=== PATIENT | male | born 1935 | race Caucasian/White ===

== ENCOUNTER → 2016-08-28 | Outpatient (CLI) | payer MEDICARE, OTHER ==
[~2016-08-28] MED LIST: ASPI81CH43 PO; ATOR20TA PO; DIGO0.2570 PO; FENO5TAB PO; GLYB5TAB8 PO; LISI-646 PO
[2016-08-28 16:54] LABS: Albumin 3.9 g/dL (3.4-5.0); BUN/Creatinine Ratio 16.4; Bilirubin, Total 0.7 mg/dL (0.2-1.0); Calcium 9.6 mg/dL (8.5-10.1); Potassium 4.3 mmol/L (3.5-5.1)
== END | disposition home or self-care (01) ==
LOC: LAB 11:42
PROVIDERS: ATTEND Internal Medicine Cardiovascular Disease
DX: I10 Essential (primary) hypertension (principal); E11.9 Type 2 diabetes mellitus without complications; R97.20 Elevated prostate specific antigen [PSA]
CPT/HCPCS: 36415; 80053; 83036; 84153

== ENCOUNTER → 2016-09-18 | Outpatient (CLI) | payer MEDICARE, OTHER ==
[2016-09-18 11:20] VITALS: BP 99/51
[2016-09-18 11:45] VITALS: BP 94/49
[2016-09-18 16:40] LABS: Basophils # (auto) 0 uL; Basophils % (auto) 0.7 % (0.0-2.0); Eosinophils # (auto) 0.2 uL; Eosinophils % (auto) 4.4 % (0.0-7.0); Lymphocytes % (auto) 27.7 % (10.0-50.0); Mean Corpuscular Hemoglobin 32.7 pg (28.0-32.0); Mean Corpuscular Hgb Conc. 34.3 g/dL (32.0-36.0); Mean Corpuscular Volume 95.3 fL (80.0-100.0); Mean Platelet Volume 8.6 fL (7.4-10.4); Monocytes # (auto) 0.3 uL; Monocytes % (auto) 8.3 % (0.0-12.0); Neutrophils # (auto) 2.2 uL; Neutrophils % (auto) 58.9 % (37.0-80.0); Platelet Count (auto) 175 10^3/uL (140-450); White Blood Cell 3.8 10^3/uL (4.4-10.8)
[2016-09-18 16:49] LABS: Partial Thromboplastin Time 28.2 sec (22.64-33.71)
[2016-09-18 16:54] LABS: Calcium 8.3 mg/dL (8.5-10.1)
[2016-09-18 16:57] LABS: BUN/Creatinine Ratio 16.9
[2016-09-18 16:58] LABS: INR 1.4 (0.9-1.15); Prothrombin Time 14.4 sec (9.37-12.3)
== END | disposition home or self-care (01) ==
LOC: Rad HDHVI 11:04
PROVIDERS: ATTEND Internal Medicine Cardiovascular Disease
DX: I10 Essential (primary) hypertension (principal); D64.9 Anemia, unspecified; R79.1 Abnormal coagulation profile
CPT/HCPCS: 36415; 71020; 80048; 85025; 85610; 85730; 93005; G0463

== ENCOUNTER 2016-09-20 11:39 | Day surgery (SDC) | payer MEDICARE ==
[~2016-09-20] VITALS: Ht 165.1 cm; Wt 65.8 kg
[2016-09-20] MEDS ORDERED: ceFAZolin 1GM/50ML D5W 50 ML IV ONE (12:45)
[2016-09-20] MEDS ORDERED: VANCOMYCIN HCL 1000 MG VL IR ONE (12:45)
[2016-09-20] MEDS ORDERED: MIDAZOLAM HCL 1MG/1ML-2 ML VIAL ONE (13:40)
[2016-09-20] MEDS ORDERED: fentaNYL CITRATE 100 MCG/2 ML VL ONE (13:40)
[2016-09-20] MEDS ORDERED: VANCOMYCIN 1GM/250ML D5W 250 ML IV ONE ×2 (13:47→14:00)
[2016-09-20] MEDS ORDERED: ACETAMINOPHEN 325 MG TAB PO PRN (15:30)
[2016-09-20] MEDS ORDERED: HYDROcodone-ACET 5/325MG TAB PO PRN (15:30)
[2016-09-21] MEDS ORDERED: VANCOMYCIN 1GM/250ML D5W 250 ML IV SCH (10:00)
== END 2016-09-20 17:21 | disposition home or self-care (01) ==
LOC: CATH 11:39
PROVIDERS: ATTEND Internal Medicine Cardiovascular Disease
DX: I42.0 Dilated cardiomyopathy (principal); Z45.02 Encounter for adjustment and management of automatic implantable cardiac defibrillator; I25.119 Atherosclerotic heart disease of native coronary artery with unspecified angina pectoris
CPT/HCPCS: 33264; J0690; J2250; J3010; J3370; J7030

== ENCOUNTER → 2017-02-06 | Outpatient (CLI) | payer MEDICARE, OTHER | END | disposition home or self-care (01) | LOC: Rad HDHVI 10:40 | PROVIDERS: ATTEND Internal Medicine Cardiovascular Disease | DX: I25.5 Ischemic cardiomyopathy (principal); E78.00 Pure hypercholesterolemia, unspecified | CPT/HCPCS: 93306 ==

== ENCOUNTER → 2017-09-10 | Outpatient (CLI) | payer MEDICARE, OTHER | END | disposition home or self-care (01) | LOC: LAB 09:13 | PROVIDERS: ATTEND Internal Medicine Cardiovascular Disease | DX: E11.22 Type 2 diabetes mellitus with diabetic chronic kidney disease (principal); E11.65 Type 2 diabetes mellitus with hyperglycemia; N18.9 Chronic kidney disease, unspecified | CPT/HCPCS: 36415; 83036 ==

== ENCOUNTER → 2017-09-27 | Outpatient (CLI) | payer MEDICARE, OTHER ==
[~2017-09-27] MED LIST changes: +FUROSEMIDE 20 MG/2 ML VIAL IV ONE; +FUROSEMIDE 20 MG/2 ML VIAL ONE; +POTASSIUM CHL 10 Meq TABLET PO ONE
[2017-09-27 11:00] VITALS: BP 116/66
[2017-09-27 12:00] VITALS: BP 137/71
[2017-09-27 16:00] LABS: Basophils # (auto) 0 uL; Basophils % (auto) 0.8 % (0.0-2.0); Eosinophils # (auto) 0.1 uL; Eosinophils % (auto) 1.6 % (0.0-7.0); Hematocrit 36.3 % (41.0-53.0); Hemoglobin 12.1 g/dL (13.5-17.5); Lymphocytes % (auto) 21.4 % (10.0-50.0); Mean Corpuscular Hemoglobin 31.5 pg (28.0-32.0); Mean Corpuscular Hgb Conc. 33.4 g/dL (32.0-36.0); Mean Corpuscular Volume 94.5 fL (80.0-100.0); Monocytes # (auto) 0.5 uL; Monocytes % (auto) 9.7 % (0.0-12.0); Neutrophils # (auto) 3.2 uL; Neutrophils % (auto) 66.5 % (37.0-80.0); Nucleated Red Blood Cells % 0.5 %; Platelet Count (auto) 144 10^3/uL (140-450); Red Blood Cells 3.84 10^6/uL (4.5-5.90); Red Cell Distribution Width 16.1 % (11.8-14.3); White Blood Cell 4.7 10^3/uL (4.4-10.8)
[2017-09-27 16:03] LABS: Albumin 3.4 g/dL (3.4-5.0); BUN/Creatinine Ratio 19.3; Bilirubin, Total 0.4 mg/dL (0.2-1.0); Calcium 8.3 mg/dL (8.5-10.1); Magnesium 2.3 mg/dL (1.6-2.6); Potassium 4.4 mmol/L (3.5-5.1); Total Protein 7.9 g/dL (6.4-8.2)
== END | disposition home or self-care (01) ==
LOC: CHF HDHVI 10:10
PROVIDERS: ATTEND Internal Medicine Cardiovascular Disease
DX: I11.0 Hypertensive heart disease with heart failure (principal); I50.9 Heart failure, unspecified; E55.9 Vitamin D deficiency, unspecified; D64.9 Anemia, unspecified
CPT/HCPCS: 36415; 80053; 82306; 83735; 83880; 85025; 93701; 96374; G0463; J1940

== ENCOUNTER → 2017-10-15 | Outpatient (CLI) | payer MEDICARE, OTHER ==
[~2017-10-15] MED LIST changes: -FUROSEMIDE 20 MG/2 ML VIAL IV ONE; -FUROSEMIDE 20 MG/2 ML VIAL ONE; -POTASSIUM CHL 10 Meq TABLET PO ONE
== END | disposition home or self-care (01) ==
LOC: Rad HDHVI 12:33
PROVIDERS: ATTEND Internal Medicine Cardiovascular Disease
DX: I08.8 Other rheumatic multiple valve diseases (principal); I12.9 Hypertensive chronic kidney disease with stage 1 through stage 4 chronic kidney disease, or unspecified chronic kidney disease; E11.22 Type 2 diabetes mellitus with diabetic chronic kidney disease; N18.9 Chronic kidney disease, unspecified; E03.9 Hypothyroidism, unspecified; Z95.0 Presence of cardiac pacemaker
CPT/HCPCS: 93306

== ENCOUNTER → 2017-10-21 | Outpatient (CLI) | payer MEDICARE, OTHER ==
[~2017-10-21] MED LIST changes: +ADENOSINE 51 MG in GIVE UN-DILUTED 0 ML IV ONE; +ADENOSINE 90 MG/30 ML INJ IV ONE
== END | disposition home or self-care (01) ==
LOC: Rad HDHVI 13:17
PROVIDERS: ATTEND Internal Medicine Cardiovascular Disease
DX: I25.5 Ischemic cardiomyopathy (principal); I13.0 Hypertensive heart and chronic kidney disease with heart failure and stage 1 through stage 4 chronic kidney disease, or unspecified chronic kidney disease; I50.23 Acute on chronic systolic (congestive) heart failure; E11.22 Type 2 diabetes mellitus with diabetic chronic kidney disease; N18.9 Chronic kidney disease, unspecified
CPT/HCPCS: 78452; 93005; 96374; 96375; A9500; J0153

== ENCOUNTER → 2017-12-17 | Outpatient (CLI) | payer MEDICARE, BC ==
[~2017-12-17] MED LIST changes: -ADENOSINE 51 MG in GIVE UN-DILUTED 0 ML IV ONE; -ADENOSINE 90 MG/30 ML INJ IV ONE; +IVAB1.7T PO; +SACU1TAB PO
== END | disposition home or self-care (01) ==
LOC: Rad HDHVI 10:27
PROVIDERS: ATTEND Internal Medicine
DX: I70.0 Atherosclerosis of aorta (principal); E03.9 Hypothyroidism, unspecified; I13.0 Hypertensive heart and chronic kidney disease with heart failure and stage 1 through stage 4 chronic kidney disease, or unspecified chronic kidney disease; E11.22 Type 2 diabetes mellitus with diabetic chronic kidney disease; N18.9 Chronic kidney disease, unspecified; I50.9 Heart failure, unspecified
CPT/HCPCS: 71046

== ENCOUNTER → 2017-12-24 | Outpatient (CLI) | payer MEDICARE, BC ==
[~2017-12-24] VITALS: Ht 30.5 cm; Wt 0.5 kg
[~2017-12-24] MED LIST changes: +SODIUM CHLORIDE 0.9% 250 ML IV SCH
[2017-12-24 13:01] VITALS: BP 97/53
[2017-12-24 16:08] LABS: Calcium 7.8 mg/dL (8.5-10.1); Potassium 3.9 mmol/L (3.5-5.1)
[2017-12-24 16:32] LABS: Basophils # (auto) 0.1 uL; Eosinophils # (auto) 0.4 uL; Eosinophils % (auto) 10.7 % (0.0-7.0); Hematocrit 35.3 % (41.0-53.0); Hemoglobin 12.3 g/dL (13.5-17.5); Lymphocytes # (auto) 0.9 uL; Lymphocytes % (auto) 25.8 % (10.0-50.0); Mean Corpuscular Hemoglobin 33.4 pg (28.0-32.0); Mean Corpuscular Volume 95.4 fL (80.0-100.0); Monocytes # (auto) 0.3 uL; Monocytes % (auto) 7.5 % (0.0-12.0); Nucleated Red Blood Cells % 0.8 %; Platelet Count (auto) 127 10^3/uL (140-450); Red Cell Distribution Width 15.2 % (11.8-14.3); White Blood Cell 3.7 10^3/uL (4.4-10.8)
[2017-12-24 16:42] LABS: INR 1.34 (0.9-1.15); Prothrombin Time 14.1 sec (9.27-12.13)
== END | disposition home or self-care (01) ==
LOC: Rad HDHVI 11:00
PROVIDERS: ATTEND Internal Medicine Cardiovascular Disease
DX: Z01.812 Encounter for preprocedural laboratory examination (principal); I95.9 Hypotension, unspecified; R94.31 Abnormal electrocardiogram [ECG] [EKG]; I13.0 Hypertensive heart and chronic kidney disease with heart failure and stage 1 through stage 4 chronic kidney disease, or unspecified chronic kidney disease; E11.22 Type 2 diabetes mellitus with diabetic chronic kidney disease; N18.9 Chronic kidney disease, unspecified; I50.9 Heart failure, unspecified; D64.9 Anemia, unspecified; R79.1 Abnormal coagulation profile; E78.00 Pure hypercholesterolemia, unspecified; E03.9 Hypothyroidism, unspecified; Z95.0 Presence of cardiac pacemaker
CPT/HCPCS: 36415; 80048; 85025; 85610; 85730; 96361; G0463

== ENCOUNTER → 2018-01-20 | Outpatient (CLI) | payer MEDICARE, BC ==
[~2018-01-20] MED LIST changes: -DIGO0.2570 PO; -LISI-646 PO; -SODIUM CHLORIDE 0.9% 250 ML IV SCH
== END | disposition home or self-care (01) ==
LOC: Rad HDHVI 13:46
PROVIDERS: ATTEND Internal Medicine Cardiovascular Disease
DX: I08.8 Other rheumatic multiple valve diseases (principal); I11.0 Hypertensive heart disease with heart failure; I50.32 Chronic diastolic (congestive) heart failure; E78.5 Hyperlipidemia, unspecified
CPT/HCPCS: 93306

== ENCOUNTER → 2018-03-17 | Outpatient (CLI) | payer MEDICARE, BC ==
[~2018-03-17] MED LIST changes: +CLOP75TA28 PO; +EMPA1TAB3 PO
[2018-03-17 08:15] VITALS: BP 103/45
[2018-03-17 08:55] VITALS: BP 95/47
[2018-03-17 12:29] LABS: Basophils # (auto) 0 uL; Basophils % (auto) 1.4 % (0.0-2.0); Eosinophils # (auto) 0.2 uL; Eosinophils % (auto) 5.3 % (0.0-7.0); Hematocrit 34.4 % (41.0-53.0); Lymphocytes % (auto) 29.1 % (10.0-50.0); Mean Corpuscular Hemoglobin 33.1 pg (28.0-32.0); Mean Corpuscular Hgb Conc. 34.8 g/dL (32.0-36.0); Monocytes # (auto) 0.4 uL; Monocytes % (auto) 11.4 % (0.0-12.0); Neutrophils # (auto) 1.8 uL; Neutrophils % (auto) 52.8 % (37.0-80.0); Platelet Count (auto) 117 10^3/uL (140-450); Red Blood Cells 3.61 10^6/uL (4.5-5.90); Red Cell Distribution Width 14.1 % (11.8-14.3); White Blood Cell 3.4 10^3/uL (4.4-10.8)
[2018-03-17 12:44] LABS: INR 1.16 (0.9-1.15); Partial Thromboplastin Time 26.4 sec (23.78-33.04); Prothrombin Time 12.3 sec (9.27-12.13)
[2018-03-17 12:46] LABS: BUN/Creatinine Ratio 24.9; Calcium 8.9 mg/dL (8.5-10.1); Potassium 4.1 mmol/L (3.5-5.1)
== END | disposition home or self-care (01) ==
LOC: EDBD → Rad HDHVI 07:56
PROVIDERS: ATTEND Internal Medicine Cardiovascular Disease
DX: Z01.812 Encounter for preprocedural laboratory examination (principal); I70.0 Atherosclerosis of aorta; I10 Essential (primary) hypertension; D64.9 Anemia, unspecified; R79.1 Abnormal coagulation profile; R94.31 Abnormal electrocardiogram [ECG] [EKG]
CPT/HCPCS: 36415; 71046; 80048; 85025; 85610; 85730; 93005; G0463

== ENCOUNTER → 2018-03-20 | Day surgery (SDC) | payer MEDICARE, BC ==
[~2018-03-20] VITALS: Ht 165.1 cm; Wt 59.0 kg
[~2018-03-20] MED LIST changes: +FLUMAZENIL 0.1 MG/ML INJ 10ML MDV IV ONE; -GLYB5TAB8 PO; +MIDAZOLAM HCL 1MG/1ML-2 ML VIAL IV ONE; +NALOXONE HCL 0.4 MG/ML VIAL IV ONE; +fentaNYL CITRATE 100 MCG/2 ML VL IV ONE
== END | disposition home or self-care (01) ==
LOC: EDBD → CATH 07:25 → EDBD 07:25
PROVIDERS: ATTEND Internal Medicine Cardiovascular Disease
DX: I08.0 Rheumatic disorders of both mitral and aortic valves (principal); E78.5 Hyperlipidemia, unspecified; I25.2 Old myocardial infarction; Z82.49 Family history of ischemic heart disease and other diseases of the circulatory system; I73.9 Peripheral vascular disease, unspecified; E11.9 Type 2 diabetes mellitus without complications; I50.9 Heart failure, unspecified; I25.119 Atherosclerotic heart disease of native coronary artery with unspecified angina pectoris; Z95.1 Presence of aortocoronary bypass graft; Z87.891 Personal history of nicotine dependence; Z79.899 Other long term (current) drug therapy; Z79.82 Long term (current) use of aspirin
CPT/HCPCS: 93312; J2250; J7030; 99152; A4565

== ENCOUNTER → 2018-04-30 | Outpatient (CLI) | payer MEDICARE, BC ==
[~2018-04-30] MED LIST changes: -FLUMAZENIL 0.1 MG/ML INJ 10ML MDV IV ONE; -MIDAZOLAM HCL 1MG/1ML-2 ML VIAL IV ONE; -NALOXONE HCL 0.4 MG/ML VIAL IV ONE; -fentaNYL CITRATE 100 MCG/2 ML VL IV ONE
[2018-04-30 15:52] LABS: Basophils # (auto) 0.1 uL; Basophils % (auto) 1.3 % (0.0-2.0); Eosinophils # (auto) 0.3 uL; Hematocrit 39.5 % (41.0-53.0); Hemoglobin 13.3 g/dL (13.5-17.5); Lymphocytes % (auto) 16.3 % (10.0-50.0); Mean Corpuscular Hgb Conc. 33.7 g/dL (32.0-36.0); Mean Corpuscular Volume 97.8 fL (80.0-100.0); Monocytes # (auto) 0.6 uL; Monocytes % (auto) 9.1 % (0.0-12.0); Neutrophils # (auto) 4.2 uL; Neutrophils % (auto) 68.3 % (37.0-80.0); Nucleated Red Blood Cells % 1.3 %; Platelet Count (auto) 199 10^3/uL (140-450); Red Blood Cells 4.03 10^6/uL (4.5-5.90); Red Cell Distribution Width 14.3 % (11.8-14.3); White Blood Cell 6.1 10^3/uL (4.4-10.8)
[2018-04-30 16:00] LABS: Urine Blood Negative /uL (Negative)
[2018-04-30 16:12] LABS: Potassium 3.8 mmol/L (3.5-5.1)
== END | disposition home or self-care (01) ==
LOC: LAB 11:07
PROVIDERS: ATTEND Internal Medicine Cardiovascular Disease
DX: N39.0 Urinary tract infection, site not specified (principal); I11.0 Hypertensive heart disease with heart failure; I50.32 Chronic diastolic (congestive) heart failure; D64.9 Anemia, unspecified
CPT/HCPCS: 36415; 80048; 81003; 85025; 87086

== ENCOUNTER → 2018-05-02 | Outpatient (CLI) | payer MEDICARE, OTHER ==
[~2018-05-02] MED LIST changes: +IOHEXOL 350 MG/ML 100ML IJ ONE; +SODIUM CHLORIDE 0.9% 250 ML IV SCH
[2018-05-02 10:30] VITALS: BP 105/38
[2018-05-02 11:45] VITALS: BP 104/42
== END | disposition home or self-care (01) ==
LOC: Rad HDHVI 09:41
PROVIDERS: ATTEND Internal Medicine Cardiovascular Disease
DX: K80.20 Calculus of gallbladder without cholecystitis without obstruction (principal); K76.0 Fatty (change of) liver, not elsewhere classified; R91.1 Solitary pulmonary nodule; N32.89 Other specified disorders of bladder; N40.0 Benign prostatic hyperplasia without lower urinary tract symptoms; I25.5 Ischemic cardiomyopathy; I08.3 Combined rheumatic disorders of mitral, aortic and tricuspid valves; I13.0 Hypertensive heart and chronic kidney disease with heart failure and stage 1 through stage 4 chronic kidney disease, or unspecified chronic kidney disease; E11.22 Type 2 diabetes mellitus with diabetic chronic kidney disease; I50.32 Chronic diastolic (congestive) heart failure; N18.9 Chronic kidney disease, unspecified; I25.2 Old myocardial infarction; D64.9 Anemia, unspecified; I25.119 Atherosclerotic heart disease of native coronary artery with unspecified angina pectoris; E78.5 Hyperlipidemia, unspecified; I73.9 Peripheral vascular disease, unspecified; E11.9 Type 2 diabetes mellitus without complications; R79.1 Abnormal coagulation profile; I70.0 Atherosclerosis of aorta; E78.00 Pure hypercholesterolemia, unspecified; E03.9 Hypothyroidism, unspecified; Z79.899 Other long term (current) drug therapy; Z87.440 Personal history of urinary (tract) infections; Z95.1 Presence of aortocoronary bypass graft; Z87.891 Personal history of nicotine dependence; Z79.82 Long term (current) use of aspirin; Z95.810 Presence of automatic (implantable) cardiac defibrillator
CPT/HCPCS: 74177; 82565; 96360; G0463; Q9967

== ENCOUNTER → 2018-05-05 | Outpatient (CLI) | payer MEDICARE, BC ==
[~2018-05-05] MED LIST changes: -IOHEXOL 350 MG/ML 100ML IJ ONE; -SODIUM CHLORIDE 0.9% 250 ML IV SCH
== END | disposition home or self-care (01) ==
LOC: Rad HDHVI 13:27
PROVIDERS: ATTEND Internal Medicine Cardiovascular Disease
DX: I08.1 Rheumatic disorders of both mitral and tricuspid valves (principal); I25.5 Ischemic cardiomyopathy
CPT/HCPCS: 93306

== ENCOUNTER → 2018-06-17 | Outpatient (CLI) | payer MEDICARE, BC | END | disposition home or self-care (01) | LOC: Rad HDHVI 11:09 | PROVIDERS: ATTEND Internal Medicine Cardiovascular Disease | DX: M48.061 Spinal stenosis, lumbar region without neurogenic claudication (principal); M47.896 Other spondylosis, lumbar region | CPT/HCPCS: 72131; 93926 ==

== ENCOUNTER → 2018-10-08 | Outpatient (CLI) | payer MEDICARE, BC | END | disposition home or self-care (01) | LOC: Rad HDHVI 14:12 | PROVIDERS: ATTEND Internal Medicine Cardiovascular Disease | DX: I08.8 Other rheumatic multiple valve diseases (principal); I10 Essential (primary) hypertension; R06.02 Shortness of breath | CPT/HCPCS: 93306 ==

== ENCOUNTER → 2018-11-21 | Outpatient (CLI) | payer MEDICARE, BC ==
[2018-11-21 11:54] LABS: Albumin 3.9 g/dL (3.4-5.0); Bilirubin, Total 0.5 mg/dL (0.2-1.0); Calcium 9.1 mg/dL (8.5-10.1); Total Protein 7.9 g/dL (6.4-8.2)
== END | disposition home or self-care (01) ==
LOC: Rad HDHVI 09:04
PROVIDERS: ATTEND Internal Medicine Cardiovascular Disease
DX: M25.512 Pain in left shoulder (principal); R70.0 Elevated erythrocyte sedimentation rate; I10 Essential (primary) hypertension
CPT/HCPCS: 36415; 73030; 80053; 85652

== ENCOUNTER → 2019-03-24 | Outpatient (CLI) | payer MEDICARE, BC | END | disposition home or self-care (01) | LOC: Rad HDHVI 12:54 | PROVIDERS: ATTEND Internal Medicine Cardiovascular Disease | DX: I65.23 Occlusion and stenosis of bilateral carotid arteries (principal); R09.89 Other specified symptoms and signs involving the circulatory and respiratory systems; E11.9 Type 2 diabetes mellitus without complications; I10 Essential (primary) hypertension | CPT/HCPCS: 93880 ==

== ENCOUNTER → 2019-07-24 | Outpatient (CLI) | payer MEDICARE, BC ==
[2019-07-24 12:19] LABS: Basophils # (auto) 0.1 uL; Basophils % (auto) 1.4 % (0.0-2.0); Eosinophils # (auto) 0.2 uL; Eosinophils % (auto) 3.2 % (0.0-7.0); Hematocrit 37.7 % (41.0-53.0); Hemoglobin 12.8 g/dL (13.5-17.5); Lymphocytes # (auto) 1.5 uL; Lymphocytes % (auto) 29.8 % (10.0-50.0); Mean Corpuscular Hemoglobin 32.8 pg (28.0-32.0); Mean Corpuscular Hgb Conc. 33.9 g/dL (32.0-36.0); Mean Corpuscular Volume 96.8 fL (80.0-100.0); Monocytes # (auto) 0.5 uL; Monocytes % (auto) 9.5 % (0.0-12.0); Neutrophils # (auto) 2.8 uL; Neutrophils % (auto) 56.1 % (37.0-80.0); Nucleated Red Blood Cells % 0.1 %; Platelet Count (auto) 167 10^3/uL (140-450); Red Blood Cells 3.89 10^6/uL (4.5-5.90); Red Cell Distribution Width 14.6 % (11.8-14.3); Urine Blood 2+ /uL (Negative); Urine Specific Gravity 1.017 (1.001-1.035); White Blood Cell 4.9 10^3/uL (4.4-10.8)
[2019-07-24 12:39] LABS: Potassium 4.9 mmol/L (3.5-5.1)
[2019-07-24 12:46] LABS: Free T4 (Free Thyroxine) 1.03 ng/dL (0.89-1.76); Prostate Specific Antigen 1.06 ng/mL (0.0-4.0)
[2019-07-24 12:48] LABS: Albumin 3.9 g/dL (3.4-5.0); BUN/Creatinine Ratio 24.9; Bilirubin, Total 0.6 mg/dL (0.2-1.0); Calcium 9.1 mg/dL (8.5-10.1); Total Protein 7.8 g/dL (6.4-8.2)
== END | disposition home or self-care (01) ==
LOC: LAB 08:19
PROVIDERS: ATTEND Internal Medicine
DX: E03.9 Hypothyroidism, unspecified (principal); K90.9 Intestinal malabsorption, unspecified; C61 Malignant neoplasm of prostate; E29.1 Testicular hypofunction; N39.0 Urinary tract infection, site not specified; D51.9 Vitamin B12 deficiency anemia, unspecified; Z79.899 Other long term (current) drug therapy
CPT/HCPCS: 36415; 80053; 80061; 81003; 82306; 82607; 83036; 84153; 84403; 84439; 84443; 85025

== ENCOUNTER → 2019-08-25 | Outpatient (CLI) | payer MEDICARE, BC | END | disposition home or self-care (01) | LOC: Rad HDHVI 10:57 | PROVIDERS: ATTEND Internal Medicine | DX: I08.1 Rheumatic disorders of both mitral and tricuspid valves (principal); I42.9 Cardiomyopathy, unspecified; I10 Essential (primary) hypertension; Z95.2 Presence of prosthetic heart valve | CPT/HCPCS: 93306 ==

== ENCOUNTER → 2019-11-03 | Outpatient (CLI) | payer MEDICARE, BC ==
[2019-11-03 16:00] LABS: Albumin 3.4 g/dL (3.4-5.0); BUN/Creatinine Ratio 18.7; Calcium 8.9 mg/dL (8.5-10.1); Potassium 3.7 mmol/L (3.5-5.1)
[2019-11-03 16:03] LABS: Bilirubin, Total 0.9 mg/dL (0.2-1.0); Total Protein 7.7 g/dL (6.4-8.2)
[2019-11-03 16:28] LABS: Basophils # (auto) 0 10 ^3/uL (0-0.2); Basophils % (auto) 0.7 % (0.0-2.0); Eosinophils # (auto) 0 10 ^3/uL (0-0.8); Eosinophils % (auto) 0.7 % (0.0-7.0); Hematocrit 32.3 % (41.0-53.0); Hemoglobin 10.7 g/dL (13.5-17.5); Lymphocytes # (auto) 0.8 10 ^3/uL (0.4-5.4); Lymphocytes % (auto) 12.4 % (10.0-50.0); Mean Corpuscular Hemoglobin 31.3 pg (28.0-32.0); Mean Corpuscular Hgb Conc. 33.1 g/dL (32.0-36.0); Mean Corpuscular Volume 94.5 fL (80.0-100.0); Monocytes # (auto) 0.6 10 ^3/uL (0-1.3); Monocytes % (auto) 9.2 % (0.0-12.0); Neutrophils # (auto) 4.7 10 ^3/uL (1.6-8.6); Nucleated Red Blood Cells % 0.1 %; Platelet Count (auto) 127 10^3/uL (140-450); Red Blood Cells 3.42 10^6/uL (4.5-5.90); Red Cell Distribution Width 13.7 % (11.8-14.3); White Blood Cell 6.1 10^3/uL (4.4-10.8)
[2019-11-04 12:06] LABS: Urine Blood TRACE /uL (Negative); Urine Specific Gravity 1.027 (1.001-1.035)
== END | disposition home or self-care (01) ==
LOC: LAB 11:23
PROVIDERS: ATTEND Internal Medicine
DX: I10 Essential (primary) hypertension (principal); N39.0 Urinary tract infection, site not specified; D64.9 Anemia, unspecified
CPT/HCPCS: 36415; 80053; 81003; 85025; 87086

== ENCOUNTER → 2019-11-18 | Outpatient (CLI) | payer MEDICARE, BC ==
[~2019-11-18] VITALS: Ht 162.6 cm; Wt 62.6 kg
== END | disposition home or self-care (01) ==
LOC: Rad HDHVI 12:44
PROVIDERS: ATTEND Internal Medicine
DX: I25.10 Atherosclerotic heart disease of native coronary artery without angina pectoris (principal); E78.00 Pure hypercholesterolemia, unspecified; Z95.0 Presence of cardiac pacemaker; Z82.49 Family history of ischemic heart disease and other diseases of the circulatory system
CPT/HCPCS: 78452; 93017; 96374; A9500

== ENCOUNTER → 2019-12-09 | Outpatient (CLI) | payer MEDICARE, BC ==
[~2019-12-09] MED LIST changes: +CYANOCOBALAMIN (B-12) 1000 MCG/1 ML VIAL IM ONE; +CYANOCOBALAMIN (B-12) 1000 MCG/1 ML VIAL ONE; +FUROSEMIDE 40 MG/4 ML VIAL IV ONE; +FUROSEMIDE 40 MG/4 ML VIAL ONE; +POTASSIUM CHL 10 Meq TABLET PO ONE
[2019-12-09 16:15] VITALS: BP 131/62
[2019-12-09 16:35] VITALS: BP 134/58
== END | disposition home or self-care (01) ==
LOC: CHF HDHVI 16:04
PROVIDERS: ATTEND Internal Medicine Cardiovascular Disease
DX: I25.10 Atherosclerotic heart disease of native coronary artery without angina pectoris (principal); I11.0 Hypertensive heart disease with heart failure; I50.9 Heart failure, unspecified; E78.00 Pure hypercholesterolemia, unspecified; R53.83 Other fatigue; E87.70 Fluid overload, unspecified; C61 Malignant neoplasm of prostate
CPT/HCPCS: 96372; 96374; G0463; J1940; J3420

== ENCOUNTER → 2019-12-11 | Outpatient (CLI) | payer MEDICARE, BC ==
[~2019-12-11] MED LIST changes: -CYANOCOBALAMIN (B-12) 1000 MCG/1 ML VIAL IM ONE; -CYANOCOBALAMIN (B-12) 1000 MCG/1 ML VIAL ONE
[2019-12-11 09:45] VITALS: BP 138/77
--- NOTE | 2019-12-11 09:45 | NUR ---
PATIENT SENT FROM [facility], ORDERS ENTERED, AAOX4, AMBULATORY, SLIGHT SOB ON EXERTION.
[2019-12-11 10:11] VITALS: BP 116/50
--- NOTE | 2019-12-11 10:11 | NUR ---
CHF CLINIC Discharge Instructions See e-MAR for any mediations given with this visit. Patient education given on disease process. Patient verbalized understanding. Previous labs reviewed. Patient discharged in stable condition with after care instructions and follow up appointment in one week. NOTE LASIX IVP ADMIN BY LETICIA GRAF. POTASSIUM PO ADMIN BY LETICIA GRAF.
[2019-12-11 13:11] LABS: Potassium 3.9 mmol/L (3.5-5.1)
== END | disposition home or self-care (01) ==
LOC: CHF HDHVI 09:46
PROVIDERS: ATTEND Internal Medicine Cardiovascular Disease
DX: R94.4 Abnormal results of kidney function studies (principal); E87.6 Hypokalemia
CPT/HCPCS: 36415; 82565; 84132; 84520; 96374; G0463; J1940

== ENCOUNTER → 2019-12-15 | Outpatient (CLI) | payer MEDICARE, BC ==
[~2019-12-15] MED LIST changes: -POTASSIUM CHL 10 Meq TABLET PO ONE; +POTASSIUM CHL 20 Meq TABLET PO ONE
[2019-12-15 13:05] VITALS: BP 134/50
--- NOTE | 2019-12-15 13:05 | NUR ---
CHF PT ARRIVED TO THE CHF CLINIC FOR EVAL AND TX FOR FLUID RETENTION. A/OX4 AMBULATORY. PT HAS A 5LB WT DECREASE SINCE LAST VISIT ON 12/09/19. 2+ LOWER EXTREMITY EDEMA. ORDERS RECEIVED AND CARRIED OUT.
[2019-12-15 13:38] VITALS: BP 115/50
--- NOTE | 2019-12-15 13:38 | NUR ---
Discharge Instructions See e-MAR for any mediations given with this visit. Patient education given on disease process. Patient verbalized understanding. Previous labs reviewed. Patient discharged in stable condition with after care instructions and follow up appointment. PT TO HAVE TURP DONE ON THE OR OF THIS MONTH. PT TO RETURN TO CLINIC FOR EVAL AND TX AFTER PROCEDURE. PT VERBALIZED UNDERSTANDING. NOTE LASIX IVP ADMIN BY LETICIA GRAF POTASSIUM PO ADMIN MY LETICIA GRAF
== END | disposition home or self-care (01) ==
LOC: CHF HDHVI 13:20
PROVIDERS: ATTEND Internal Medicine Cardiovascular Disease
DX: I11.0 Hypertensive heart disease with heart failure (principal); I50.9 Heart failure, unspecified; E78.00 Pure hypercholesterolemia, unspecified; I25.10 Atherosclerotic heart disease of native coronary artery without angina pectoris; Z95.1 Presence of aortocoronary bypass graft; Z85.46 Personal history of malignant neoplasm of prostate
CPT/HCPCS: 96374; G0463; J1940

== ENCOUNTER → 2019-12-31 | Outpatient (CLI) | payer MEDICARE, BC ==
[~2019-12-31] MED LIST changes: +ALBUTEROL SULF 2.5 MG/0.5ML(0.5%) NEB SOLN NEB ONE; +ALBUTEROL SULF 2.5 MG/0.5ML(0.5%) NEB SOLN ONE; +CYANOCOBALAMIN (B-12) 1000 MCG/1 ML VIAL IM ONE; +CYANOCOBALAMIN (B-12) 1000 MCG/1 ML VIAL ONE; -FUROSEMIDE 40 MG/4 ML VIAL IV ONE; -FUROSEMIDE 40 MG/4 ML VIAL ONE; -POTASSIUM CHL 20 Meq TABLET PO ONE
[2019-12-31 13:20] VITALS: BP 125/63
[2019-12-31 16:11] LABS: Basophils # (auto) 0.1 10 ^3/uL (0-0.2); Basophils % (auto) 1.2 % (0.0-2.0); Eosinophils # (auto) 0.1 10 ^3/uL (0-0.8); Eosinophils % (auto) 1.8 % (0.0-7.0); Hemoglobin 11.8 g/dL (13.5-17.5); Lymphocytes # (auto) 0.8 10 ^3/uL (0.4-5.4); Lymphocytes % (auto) 15.7 % (10.0-50.0); Mean Corpuscular Hemoglobin 30.5 pg (28.0-32.0); Mean Corpuscular Hgb Conc. 32.7 g/dL (32.0-36.0); Mean Corpuscular Volume 93.1 fL (80.0-100.0); Monocytes # (auto) 0.5 10 ^3/uL (0-1.3); Monocytes % (auto) 9.9 % (0.0-12.0); Neutrophils # (auto) 3.6 10 ^3/uL (1.6-8.6); Neutrophils % (auto) 71.4 % (37.0-80.0); Nucleated Red Blood Cells % 0.1 %; Platelet Count (auto) 222 10^3/uL (140-450); Red Blood Cells 3.87 10^6/uL (4.5-5.90); Red Cell Distribution Width 17.6 % (11.8-14.3)
[2019-12-31 16:23] LABS: Calcium 8.6 mg/dL (8.5-10.1); Magnesium 2.1 mg/dL (1.6-2.6); Potassium 4.4 mmol/L (3.5-5.1)
[2019-12-31 16:25] LABS: BUN/Creatinine Ratio 14.7
== END | disposition home or self-care (01) ==
LOC: CHF HDHVI 11:18
PROVIDERS: ATTEND Internal Medicine Cardiovascular Disease
DX: I11.0 Hypertensive heart disease with heart failure (principal); I50.23 Acute on chronic systolic (congestive) heart failure; D64.9 Anemia, unspecified; E83.40 Disorders of magnesium metabolism, unspecified; E78.00 Pure hypercholesterolemia, unspecified; R06.02 Shortness of breath; I25.10 Atherosclerotic heart disease of native coronary artery without angina pectoris; Z95.1 Presence of aortocoronary bypass graft; Z95.0 Presence of cardiac pacemaker; Z85.46 Personal history of malignant neoplasm of prostate
CPT/HCPCS: 36415; 80048; 83735; 83880; 85025; 94618; 94640; 96372; G0463; J3420

== ENCOUNTER → 2020-01-05 | Outpatient (CLI) | payer MEDICARE, BC ==
[~2020-01-05] MED LIST changes: -CYANOCOBALAMIN (B-12) 1000 MCG/1 ML VIAL IM ONE; -CYANOCOBALAMIN (B-12) 1000 MCG/1 ML VIAL ONE
--- NOTE | 2020-01-05 09:58 | NUR ---
CLINIC PT ARRIVED TO THE CHF CLINIC FOR EVAL AND TX. A/OX4, AMBULATORY, ACCOMPANIED BY SON. PT HAD A 2.8 LBS WT LOSS SINCE LAST VISIT ON 12/31/19.
--- NOTE | 2020-01-05 10:15 | NUR ---
LABS DRAWN AND SENT
--- NOTE | 2020-01-05 10:20 | NUR ---
PT TO SEE MD SINGH FOR SCHEDULED APPOINTMENT
--- NOTE | 2020-01-05 10:42 | NUR ---
RETURN FROM APPOINTMENT WITH MD SINGH. PT TO COME TO RETURN TO CLINIC EVERY 2 WEEKS FOR EVAL AND TX.
[2020-01-05 10:56] VITALS: BP 109/44
--- NOTE | 2020-01-05 10:56 | NUR ---
PT TO Discharge Instructions See e-MAR for any mediations given with this visit. Patient education given on disease process. Patient verbalized understanding. Previous labs reviewed. Patient discharged in stable condition with after care instructions and follow up appointment. PT TO RETURN TO CLINIC IN 2 WEEKS FOR EVAL AND TX. NOTE ALBUTEROL MED NEB ADMIN BY ROCCO GRAF
[2020-01-05 14:59] LABS: Potassium 3.9 mmol/L (3.5-5.1)
== END | disposition home or self-care (01) ==
LOC: CHF HDHVI 09:56
PROVIDERS: ATTEND Internal Medicine Cardiovascular Disease
DX: I50.23 Acute on chronic systolic (congestive) heart failure (principal); R94.4 Abnormal results of kidney function studies; E87.6 Hypokalemia
CPT/HCPCS: 36415; 82565; 83880; 84132; 84520; 94640; G0463

== ENCOUNTER → 2020-01-18 | Outpatient (CLI) | payer MEDICARE, BC ==
[~2020-01-18] MED LIST changes: -ALBUTEROL SULF 2.5 MG/0.5ML(0.5%) NEB SOLN NEB ONE; -ALBUTEROL SULF 2.5 MG/0.5ML(0.5%) NEB SOLN ONE; +CYANOCOBALAMIN (B-12) 1000 MCG/1 ML VIAL IM ONE; +CYANOCOBALAMIN (B-12) 1000 MCG/1 ML VIAL ONE
--- NOTE | 2020-01-18 09:45 | NUR ---
Patient into clinic for biweekly checkups in the chf clinic. Pt AAOx4, ambulatory, breathing even and unlabored.
[2020-01-18 10:20] VITALS: BP 119/50
--- NOTE | 2020-01-18 10:20 | NUR ---
CHF Clinic Discharge Instructions See e-MAR for any mediations given with this visit. Patient education given on disease process. Patient verbalized understanding. Previous labs reviewed. Patient discharged in stable condition with after care instructions and follow up appointment. Note B12 IM L deltoid admin by Francia GRAF.
[2020-01-18 12:24] LABS: Basophils # (auto) 0.1 10 ^3/uL (0-0.2); Basophils % (auto) 1.2 % (0.0-2.0); Eosinophils # (auto) 0.1 10 ^3/uL (0-0.8); Hematocrit 35.2 % (41.0-53.0); Hemoglobin 11.8 g/dL (13.5-17.5); Lymphocytes # (auto) 1.1 10 ^3/uL (0.4-5.4); Lymphocytes % (auto) 22.3 % (10.0-50.0); Mean Corpuscular Hemoglobin 30.8 pg (28.0-32.0); Mean Corpuscular Hgb Conc. 33.4 g/dL (32.0-36.0); Monocytes # (auto) 0.3 10 ^3/uL (0-1.3); Monocytes % (auto) 6.4 % (0.0-12.0); Neutrophils # (auto) 3.3 10 ^3/uL (1.6-8.6); Neutrophils % (auto) 67.1 % (37.0-80.0); Platelet Count (auto) 141 10^3/uL (140-450); Red Blood Cells 3.82 10^6/uL (4.5-5.90); Red Cell Distribution Width 17.2 % (11.8-14.3); White Blood Cell 4.9 10^3/uL (4.4-10.8)
[2020-01-18 12:39] LABS: Albumin 3.6 g/dL (3.4-5.0); BUN/Creatinine Ratio 23.2; Bilirubin, Total 0.7 mg/dL (0.2-1.0); Calcium 8.8 mg/dL (8.5-10.1); Magnesium 2.3 mg/dL (1.6-2.6); Total Protein 7.6 g/dL (6.4-8.2)
== END | disposition home or self-care (01) ==
LOC: CHF HDHVI 09:41
PROVIDERS: ATTEND Internal Medicine Cardiovascular Disease
DX: I11.0 Hypertensive heart disease with heart failure (principal); I50.23 Acute on chronic systolic (congestive) heart failure; D64.9 Anemia, unspecified; E83.40 Disorders of magnesium metabolism, unspecified; R53.1 Weakness; I25.10 Atherosclerotic heart disease of native coronary artery without angina pectoris; E78.00 Pure hypercholesterolemia, unspecified; Z79.899 Other long term (current) drug therapy; Z95.1 Presence of aortocoronary bypass graft
CPT/HCPCS: 36415; 80053; 83735; 83880; 85025; 96372; G0463; J3420

== ENCOUNTER → 2020-02-02 | Outpatient (CLI) | payer MEDICARE, BC ==
[~2020-02-02] MED LIST changes: +TESTOSTERONE CYPIONATE 200 MG/ML 1ML VIAL IM ONE
[2020-02-02 12:15] VITALS: BP 107/49
--- NOTE | 2020-02-02 12:15 | NUR ---
CLINIC PT ARRIVED TO THE CHF CLINIC FROM BACK OFFICE WITH C/O FATIGUE WITH ORDERS. A/OX4, AMBULATORY. BREATHING IS EVEN AND UNLABORED. PT IS ASSISTED BY SON.
[2020-02-02 12:50] VITALS: BP 121/53
--- NOTE | 2020-02-02 12:50 | NUR ---
Discharge Instructions See e-MAR for any mediations given with this visit. Patient education given on disease process. Patient verbalized understanding. Previous labs reviewed. Patient discharged in stable condition with after care instructions and follow up appointment ON 03/29/20 @ 1045 NOTE VIT B12 IM ADMIN BY ROCCO CONNORS LOT# [id number] EXP 09/19 TESTOSTERONE IM ADMIN BY ROCCO CONNORS LOT # [id number] EXP 04/20
== END | disposition home or self-care (01) ==
LOC: CHF HDHVI 12:26
PROVIDERS: ATTEND Internal Medicine
DX: I11.0 Hypertensive heart disease with heart failure (principal); I50.22 Chronic systolic (congestive) heart failure; E29.1 Testicular hypofunction; I25.10 Atherosclerotic heart disease of native coronary artery without angina pectoris; Z79.899 Other long term (current) drug therapy; Z85.46 Personal history of malignant neoplasm of prostate
CPT/HCPCS: 96372; G0463; J1071; J3420

== ENCOUNTER → 2020-02-16 | Outpatient (CLI) | payer MEDICARE, BC ==
[~2020-02-16] MED LIST changes: -TESTOSTERONE CYPIONATE 200 MG/ML 1ML VIAL IM ONE
--- NOTE | 2020-02-16 10:30 | NUR ---
Patient came into to clinic for biweekly follow up. Patient AAOx4.ambulatory, breathing even and unlabored.
--- NOTE | 2020-02-16 11:00 | NUR ---
Patient states the Dr Chou battery repairer, is not with the group. He received a call from the office and his appointment was cancelled. Patient asks for new referral.
--- NOTE | 2020-02-16 11:15 | NUR ---
Spoke Dr Moreno regarding business services representative, will call Yuli Cortes and confirm that Dr Chou is no longer with the group and get the information on the new business services representative to refer the patient to.
--- NOTE | 2020-02-16 11:40 | NUR ---
Called Yuli Cortes regarding whether Dr Chou is still part of the group, was told that Dr Chou is no longer with the group and that Radha Rosas is the new information assurance manager in [id number], . Called Dr. Chiu's office and faxed over MD progress notes and test results.
[2020-02-16 11:47] VITALS: BP 109/45
--- NOTE | 2020-02-16 11:47 | NUR ---
CHF Clinic Discharge Instructions See e-MAR for any mediations given with this visit. Patient education given on disease process. Patient verbalized understanding. Previous labs reviewed. Patient discharged in stable condition with after care instructions and follow up appointment. Note B12 IM R deltoid admin by Francia GRAF.
[2020-02-16 12:21] LABS: Basophils # (auto) 0 10 ^3/uL (0-0.2); Basophils % (auto) 1.1 % (0.0-2.0); Eosinophils # (auto) 0.1 10 ^3/uL (0-0.8); Eosinophils % (auto) 3.7 % (0.0-7.0); Hematocrit 30.3 % (41.0-53.0); Hemoglobin 10.1 g/dL (13.5-17.5); Lymphocytes # (auto) 0.8 10 ^3/uL (0.4-5.4); Lymphocytes % (auto) 23.1 % (10.0-50.0); Mean Corpuscular Hgb Conc. 33.3 g/dL (32.0-36.0); Monocytes # (auto) 0.3 10 ^3/uL (0-1.3); Monocytes % (auto) 7.1 % (0.0-12.0); Neutrophils # (auto) 2.4 10 ^3/uL (1.6-8.6); Platelet Count (auto) 112 10^3/uL (140-450); Red Blood Cells 3.25 10^6/uL (4.5-5.90); Red Cell Distribution Width 17.4 % (11.8-14.3); White Blood Cell 3.6 10^3/uL (4.4-10.8)
[2020-02-16 12:25] LABS: BUN/Creatinine Ratio 23.4; Calcium 8.6 mg/dL (8.5-10.1); Magnesium 2.2 mg/dL (1.6-2.6); Potassium 4.2 mmol/L (3.5-5.1)
== END | disposition home or self-care (01) ==
LOC: CHF HDHVI 10:51
PROVIDERS: ATTEND Internal Medicine Cardiovascular Disease
DX: I11.0 Hypertensive heart disease with heart failure (principal); I50.23 Acute on chronic systolic (congestive) heart failure; I25.10 Atherosclerotic heart disease of native coronary artery without angina pectoris; E78.00 Pure hypercholesterolemia, unspecified; Z79.899 Other long term (current) drug therapy; Z95.1 Presence of aortocoronary bypass graft; Z95.0 Presence of cardiac pacemaker; Z85.46 Personal history of malignant neoplasm of prostate
CPT/HCPCS: 36415; 80048; 83735; 83880; 85025; 96372; G0463; J3420

== ENCOUNTER → 2020-03-03 | Outpatient (CLI) | payer MEDICARE, BC ==
[~2020-03-03] MED LIST changes: +ALBUTEROL SULF 2.5 MG/0.5ML(0.5%) NEB SOLN ONE; -CYANOCOBALAMIN (B-12) 1000 MCG/1 ML VIAL IM ONE; -CYANOCOBALAMIN (B-12) 1000 MCG/1 ML VIAL ONE
== END | disposition home or self-care (01) ==
LOC: RT 08:21
PROVIDERS: ATTEND Internal Medicine Pulmonary Disease
DX: R06.02 Shortness of breath (principal)
CPT/HCPCS: 94060; 94618; 94727; 94729

== ENCOUNTER → 2020-04-04 | Outpatient (CLI) | payer MEDICARE, BC ==
[~2020-04-04] VITALS: Ht 30.5 cm; Wt 0.5 kg
[~2020-04-04] MED LIST changes: -ALBUTEROL SULF 2.5 MG/0.5ML(0.5%) NEB SOLN ONE; +CYANOCOBALAMIN (B-12) 1000 MCG/1 ML VIAL IM ONE; +CYANOCOBALAMIN (B-12) 1000 MCG/1 ML VIAL ONE; +FUROSEMIDE 100 MG/10ML VIAL IV ONE; +FUROSEMIDE 40 MG/4 ML VIAL ONE; +POTASSIUM CHL 10 Meq TABLET PO ONE; +POTASSIUM CHL 20 Meq TABLET PO ONE
[2020-04-04 10:55] VITALS: BP 130/57
[2020-04-04 12:23] LABS: Basophils # (auto) 0.1 10 ^3/uL (0-0.2); Basophils % (auto) 1.2 % (0.0-2.0); Eosinophils # (auto) 0.1 10 ^3/uL (0-0.8); Eosinophils % (auto) 3.5 % (0.0-7.0); Hematocrit 32.3 % (41.0-53.0); Hemoglobin 10.9 g/dL (13.5-17.5); Mean Corpuscular Hgb Conc. 33.9 g/dL (32.0-36.0); Mean Corpuscular Volume 94.5 fL (80.0-100.0); Monocytes # (auto) 0.3 10 ^3/uL (0-1.3); Neutrophils # (auto) 2.5 10 ^3/uL (1.6-8.6); Neutrophils % (auto) 62.3 % (37.0-80.0); Nucleated Red Blood Cells % 0.2 %; Platelet Count (auto) 121 10^3/uL (140-450); Red Blood Cells 3.42 10^6/uL (4.5-5.90); Red Cell Distribution Width 16.3 % (11.8-14.3); White Blood Cell 4.1 10^3/uL (4.4-10.8)
[2020-04-04 12:46] LABS: Potassium 4.4 mmol/L (3.5-5.1)
[2020-04-04 13:03] LABS: Albumin 3.6 g/dL (3.4-5.0); BUN/Creatinine Ratio 26.1; Bilirubin, Total 0.5 mg/dL (0.2-1.0); Calcium 8.4 mg/dL (8.5-10.1); Magnesium 2.1 mg/dL (1.6-2.6); Total Protein 7.4 g/dL (6.4-8.2)
== END | disposition home or self-care (01) ==
LOC: CHF HDHVI 09:56
PROVIDERS: ATTEND Internal Medicine Cardiovascular Disease
DX: I11.0 Hypertensive heart disease with heart failure (principal); I50.23 Acute on chronic systolic (congestive) heart failure; R53.83 Other fatigue; I25.10 Atherosclerotic heart disease of native coronary artery without angina pectoris; E78.00 Pure hypercholesterolemia, unspecified; Z79.899 Other long term (current) drug therapy; Z85.46 Personal history of malignant neoplasm of prostate; Z95.1 Presence of aortocoronary bypass graft
CPT/HCPCS: 36415; 80053; 82306; 83036; 83735; 83880; 85025; 96372; 96374; G0463; J1940; J3420

== ENCOUNTER → 2020-04-11 | Outpatient (CLI) | payer MEDICARE, BC ==
[~2020-04-11] VITALS: Ht 30.5 cm; Wt 59.2 kg
[~2020-04-11] MED LIST changes: -FUROSEMIDE 100 MG/10ML VIAL IV ONE; +FUROSEMIDE 40 MG/4 ML VIAL IV ONE
[2020-04-11 10:45] VITALS: BP 115/42
[2020-04-11 12:28] LABS: Potassium 4.9 mmol/L (3.5-5.1)
[2020-04-11 12:44] LABS: Magnesium 2.4 mg/dL (1.6-2.6)
== END | disposition home or self-care (01) ==
LOC: CHF HDHVI 10:02
PROVIDERS: ATTEND Internal Medicine Cardiovascular Disease
DX: I11.0 Hypertensive heart disease with heart failure (principal); I50.23 Acute on chronic systolic (congestive) heart failure; D64.9 Anemia, unspecified; I25.10 Atherosclerotic heart disease of native coronary artery without angina pectoris; E78.00 Pure hypercholesterolemia, unspecified; Z79.899 Other long term (current) drug therapy; Z85.46 Personal history of malignant neoplasm of prostate; Z95.1 Presence of aortocoronary bypass graft
CPT/HCPCS: 36415; 82565; 83735; 83880; 84132; 84520; 96372; 96374; G0463; J1940; J3420

== ENCOUNTER → 2020-04-18 | Outpatient (CLI) | payer MEDICARE, BC ==
[~2020-04-18] MED LIST changes: -FUROSEMIDE 40 MG/4 ML VIAL IV ONE; -FUROSEMIDE 40 MG/4 ML VIAL ONE; -POTASSIUM CHL 10 Meq TABLET PO ONE; -POTASSIUM CHL 20 Meq TABLET PO ONE
[2020-04-18 09:45] VITALS: BP 101/36
[2020-04-18 10:15] VITALS: BP 95/33
[2020-04-18 12:06] LABS: Basophils # (auto) 0.1 10 ^3/uL (0-0.2); Basophils % (auto) 1.3 % (0.0-2.0); Eosinophils # (auto) 0.2 10 ^3/uL (0-0.8); Eosinophils % (auto) 4.1 % (0.0-7.0); Hematocrit 34.5 % (41.0-53.0); Hemoglobin 11.6 g/dL (13.5-17.5); Lymphocytes % (auto) 22.8 % (10.0-50.0); Mean Corpuscular Hemoglobin 31.9 pg (28.0-32.0); Mean Corpuscular Hgb Conc. 33.7 g/dL (32.0-36.0); Mean Corpuscular Volume 94.5 fL (80.0-100.0); Monocytes # (auto) 0.3 10 ^3/uL (0-1.3); Monocytes % (auto) 6.7 % (0.0-12.0); Neutrophils % (auto) 65.1 % (37.0-80.0); Nucleated Red Blood Cells % 0.1 %; Platelet Count (auto) 139 10^3/uL (140-450); Red Blood Cells 3.64 10^6/uL (4.5-5.90); Red Cell Distribution Width 15.2 % (11.8-14.3); White Blood Cell 4.6 10^3/uL (4.4-10.8)
[2020-04-18 12:23] LABS: BUN/Creatinine Ratio 35.2; Calcium 8.9 mg/dL (8.5-10.1); Magnesium 2.4 mg/dL (1.6-2.6); Potassium 5.5 mmol/L (3.5-5.1)
== END | disposition home or self-care (01) ==
LOC: CHF HDHVI 10:01
PROVIDERS: ATTEND Internal Medicine Cardiovascular Disease
DX: I11.0 Hypertensive heart disease with heart failure (principal); I50.23 Acute on chronic systolic (congestive) heart failure; R53.83 Other fatigue; I95.9 Hypotension, unspecified; I25.10 Atherosclerotic heart disease of native coronary artery without angina pectoris; E78.00 Pure hypercholesterolemia, unspecified; Z79.899 Other long term (current) drug therapy; Z95.1 Presence of aortocoronary bypass graft
CPT/HCPCS: 36415; 80048; 83735; 83880; 85025; 96372; G0463; J3420

== ENCOUNTER → 2020-04-25 | Outpatient (CLI) | payer MEDICARE, BC ==
[~2020-04-25] MED LIST changes: -CYANOCOBALAMIN (B-12) 1000 MCG/1 ML VIAL IM ONE; -CYANOCOBALAMIN (B-12) 1000 MCG/1 ML VIAL ONE; +TESTOSTERONE CYPIONATE 200 MG/ML 1ML VIAL IM ONE
[2020-04-25 10:11] VITALS: BP 118/44
--- NOTE | 2020-04-25 10:11 | NUR ---
CLINIC PT ARRIVED TO THE CHF CLINIC FOR A F/U REGARDING PREVIOUS LABS AND MED CHANGES, A/OX4, AMBULATORY, BREATHING IS EVEN AND UNLABORED.
--- NOTE | 2020-04-25 10:18 | NUR ---
LABS DRAWN AND SENT STAT.
[2020-04-25 11:13] LABS: Magnesium 2.3 mg/dL (1.6-2.6)
[2020-04-25 11:15] LABS: BUN/Creatinine Ratio 27.7
[2020-04-25 11:33] VITALS: BP 101/35
--- NOTE | 2020-04-25 11:33 | NUR ---
Discharge Instructions See e-MAR for any mediations given with this visit. Patient education given on disease process. Patient verbalized understanding. Previous labs reviewed. Patient discharged in stable condition with after care instructions and follow up appointment ON SATURDAY. SAMPLE OF TRADJENTA 5MG QD GIVEN TO PT WITH INSTRUCTIONS FOR USE. PT VERBALIZED UNDERSTANDING. NOTE TESTOSTERONE IM ADMIN BY VEE CONNORS LOT#[id number] EXP 06/21
== END | disposition home or self-care (01) ==
LOC: CHF HDHVI 10:14
PROVIDERS: ATTEND Internal Medicine Cardiovascular Disease
DX: E29.1 Testicular hypofunction (principal); I11.0 Hypertensive heart disease with heart failure; I50.23 Acute on chronic systolic (congestive) heart failure; I25.10 Atherosclerotic heart disease of native coronary artery without angina pectoris; R53.83 Other fatigue; Z79.899 Other long term (current) drug therapy
CPT/HCPCS: 36415; 80048; 83735; 83880; 96372; G0463; J1071

== ENCOUNTER → 2020-05-02 | Outpatient (CLI) | payer MEDICARE, BC ==
[~2020-05-02] VITALS: Ht 30.5 cm; Wt 0.5 kg
[~2020-05-02] MED LIST changes: +FUROSEMIDE 40 MG/4 ML VIAL IV ONE; +FUROSEMIDE 40 MG/4 ML VIAL ONE; +POTASSIUM CHL 10 Meq TABLET PO ONE; -TESTOSTERONE CYPIONATE 200 MG/ML 1ML VIAL IM ONE
[2020-05-02 10:08] VITALS: BP 104/41
--- NOTE | 2020-05-02 10:08 | NUR ---
CLINIC PT ARRIVED TO THE CHF CLINIC FOR SCHEDULED WEEKLY CHF EVAL. A/OX4, AMBULATORY, BREATHING IS EVEN AND UNLABORED. PT HAS A 6LB WT INCREASED SINCE LAST VISIT ON 04/25/20. PT STATED HE DOESN'T FEEL ANY DIFFERENT.
--- NOTE | 2020-05-02 10:29 | NUR ---
LABS DRAWN AND SENT
[2020-05-02 10:56] VITALS: BP 101/38
--- NOTE | 2020-05-02 10:56 | NUR ---
Discharge Instructions See e-MAR for any mediations given with this visit. Patient education given on disease process. Patient verbalized understanding. Previous labs reviewed. Patient discharged in stable condition with after care instructions and follow up appointment IN CLINIC ON SATURDAY. NOTE CINDY IVP ADMIN BY ROCCO FREED PO ADMIN BY FLOR GRAF
[2020-05-02 12:28] LABS: Potassium 4.8 mmol/L (3.5-5.1)
== END | disposition home or self-care (01) ==
LOC: CHF HDHVI 10:12
PROVIDERS: ATTEND Internal Medicine Cardiovascular Disease
DX: I11.0 Hypertensive heart disease with heart failure (principal); I50.23 Acute on chronic systolic (congestive) heart failure; I25.10 Atherosclerotic heart disease of native coronary artery without angina pectoris; R60.9 Edema, unspecified; E78.00 Pure hypercholesterolemia, unspecified; E87.6 Hypokalemia; Z79.899 Other long term (current) drug therapy; Z95.1 Presence of aortocoronary bypass graft; Z85.46 Personal history of malignant neoplasm of prostate
CPT/HCPCS: 36415; 82565; 83880; 84132; 84520; 96374; G0463; J1940

== ENCOUNTER → 2020-05-05 | Outpatient (CLI) | payer MEDICARE, BC ==
[~2020-05-05] MED LIST changes: -FUROSEMIDE 40 MG/4 ML VIAL IV ONE; -FUROSEMIDE 40 MG/4 ML VIAL ONE; -POTASSIUM CHL 10 Meq TABLET PO ONE
[2020-05-05 11:56] LABS: Urine Blood Negative /uL (Negative)
== END | disposition home or self-care (01) ==
LOC: LAB 09:29
PROVIDERS: ATTEND Internal Medicine Cardiovascular Disease
DX: N39.0 Urinary tract infection, site not specified (principal)
CPT/HCPCS: 81003

== ENCOUNTER → 2020-05-09 | Outpatient (CLI) | payer MEDICARE, BC ==
[~2020-05-09] MED LIST changes: +CYANOCOBALAMIN (B-12) 1000 MCG/1 ML VIAL IM ONE; +CYANOCOBALAMIN (B-12) 1000 MCG/1 ML VIAL ONE; +FUROSEMIDE 40 MG/4 ML VIAL IV ONE; +FUROSEMIDE 40 MG/4 ML VIAL ONE; +POTASSIUM CHL 10 Meq TABLET PO ONE
[2020-05-09 10:50] VITALS: BP 105/60
[2020-05-09 12:40] LABS: Potassium 4.4 mmol/L (3.5-5.1)
[2020-05-09 12:52] LABS: Magnesium 2.1 mg/dL (1.6-2.6)
== END | disposition home or self-care (01) ==
LOC: CHF HDHVI 10:05
PROVIDERS: ATTEND Internal Medicine Cardiovascular Disease
DX: I11.0 Hypertensive heart disease with heart failure (principal); I50.23 Acute on chronic systolic (congestive) heart failure; D64.9 Anemia, unspecified; I25.10 Atherosclerotic heart disease of native coronary artery without angina pectoris; E78.00 Pure hypercholesterolemia, unspecified; Z79.899 Other long term (current) drug therapy; Z85.46 Personal history of malignant neoplasm of prostate; Z95.1 Presence of aortocoronary bypass graft
CPT/HCPCS: 36415; 82565; 83735; 83880; 84132; 84520; 96372; 96374; G0463; J1940; J3420

== ENCOUNTER → 2020-05-16 | Outpatient (CLI) | payer MEDICARE, BC ==
[~2020-05-16] VITALS: Ht 30.5 cm; Wt 0.5 kg
[~2020-05-16] MED LIST changes: -FUROSEMIDE 40 MG/4 ML VIAL IV ONE; -FUROSEMIDE 40 MG/4 ML VIAL ONE; -POTASSIUM CHL 10 Meq TABLET PO ONE
[2020-05-16 10:05] VITALS: BP 114/45
--- NOTE | 2020-05-16 10:05 | NUR ---
CLINIC PT ARRIVED TO THE CHF CLINIC FOR SCHEDULED CHF EVAL, A/OX4, AMBULATORY, BREATHING IS EVEN AND UNLABORED. PT 4.8LB WT DECREASE SINCE LAST VISIT ON 05/09/20.
--- NOTE | 2020-05-16 10:22 | NUR ---
LABS DRAWN AND SENT
[2020-05-16 10:40] VITALS: BP 97/41
--- NOTE | 2020-05-16 10:40 | NUR ---
Discharge Instructions See e-MAR for any mediations given with this visit. Patient education given on disease process. Patient verbalized understanding. Previous labs reviewed. Patient discharged in stable condition with after care instructions and follow up appointment IN 1 WEEK. NOTE VIT B12 IM ADMIN BY ROCCO HICKS LOT#[id number] EXP 10/20
[2020-05-16 12:38] LABS: Potassium 4.2 mmol/L (3.5-5.1)
== END | disposition home or self-care (01) ==
LOC: CHF HDHVI 10:30
PROVIDERS: ATTEND Internal Medicine Cardiovascular Disease
DX: I11.0 Hypertensive heart disease with heart failure (principal); I50.23 Acute on chronic systolic (congestive) heart failure; D64.9 Anemia, unspecified; I25.10 Atherosclerotic heart disease of native coronary artery without angina pectoris; E78.00 Pure hypercholesterolemia, unspecified; Z79.899 Other long term (current) drug therapy; Z95.1 Presence of aortocoronary bypass graft; Z85.46 Personal history of malignant neoplasm of prostate
CPT/HCPCS: 36415; 82565; 83880; 84132; 84403; 84520; 96372; G0463; J3420

== ENCOUNTER → 2020-05-23 | Outpatient (CLI) | payer MEDICARE, BC ==
[~2020-05-23] MED LIST changes: -CYANOCOBALAMIN (B-12) 1000 MCG/1 ML VIAL IM ONE; -CYANOCOBALAMIN (B-12) 1000 MCG/1 ML VIAL ONE; +TESTOSTERONE CYPIONATE 200 MG/ML 1ML VIAL IM ONE
[2020-05-23 10:05] VITALS: BP 118/46
--- NOTE | 2020-05-23 10:05 | NUR ---
CLINIC PT ARRIVED TO THE CHF CLINIC FOR SCHEDULED CHF EVAL, A/OX4, AMBULATORY, BREATHING IS EVEN AND UNLABORED.
--- NOTE | 2020-05-23 10:22 | NUR ---
LABS DRAWN AND SENT
[2020-05-23 10:55] VITALS: BP 105/42
--- NOTE | 2020-05-23 10:55 | NUR ---
Discharge Instructions See e-MAR for any mediations given with this visit. Patient education given on disease process. Patient verbalized understanding. Previous labs reviewed. Patient discharged in stable condition with after care instructions and follow up appointment. NOTE TESTOSTERONE IM ADMIN BY LUZ ELENA CONNORS LOT#[id number] EXP 08/23
[2020-05-23 13:58] LABS: Anion Gap 6 (5-15); BUN/Creatinine Ratio 26.5; Blood Urea Nitrogen 49 mg/dL (7-18); Calcium 8.3 mg/dL (8.5-10.1); Carbon Dioxide 24 mmol/L (21-32); Chloride 105 mmol/L (98-107); GFR African American 45 mL/min; GFR Non-African American 37 mL/min; Glucose 225 mg/dL (74-106); Potassium 4.5 mmol/L (3.5-5.1); Sodium 135 mmol/L (136-145)
== END | disposition home or self-care (01) ==
LOC: CHF HDHVI 10:25
PROVIDERS: ATTEND Internal Medicine Cardiovascular Disease
DX: I11.0 Hypertensive heart disease with heart failure (principal); I50.23 Acute on chronic systolic (congestive) heart failure; E29.1 Testicular hypofunction; R53.83 Other fatigue; I25.10 Atherosclerotic heart disease of native coronary artery without angina pectoris; Z79.899 Other long term (current) drug therapy; Z85.46 Personal history of malignant neoplasm of prostate; Z95.1 Presence of aortocoronary bypass graft
CPT/HCPCS: 36415; 80048; 83880; 96372; G0463; J1071

== ENCOUNTER → 2020-05-30 | Outpatient (CLI) | payer MEDICARE, BC ==
[~2020-05-30] MED LIST changes: +CYANOCOBALAMIN (B-12) 1000 MCG/1 ML VIAL IM ONE; +CYANOCOBALAMIN (B-12) 1000 MCG/1 ML VIAL ONE; -TESTOSTERONE CYPIONATE 200 MG/ML 1ML VIAL IM ONE
--- NOTE | 2020-05-30 09:48 | NUR ---
CLINIC PT ARRIVED TO THE CHF CLINIC FOR SCHEDULED CHF EVAL, Zach/OX4, AMBULATORY, BREATHING IS EVEN AND UNLABORED, FASTING BLOOD SUGAR 124 THIS AM. PT HAS A 1.1 LB WT INCREASE SINCE LAST VISIT ON 05/23/20
--- NOTE | 2020-05-30 10:14 | NUR ---
LABS DRAWN AND SENT
[2020-05-30 10:23] VITALS: BP 114/46
--- NOTE | 2020-05-30 10:23 | NUR ---
Discharge Instructions See e-MAR for any mediations given with this visit. Patient education given on disease process. Patient verbalized understanding. Previous labs reviewed. Patient discharged in stable condition with after care instructions and follow up appointment IN 1 WEEK. NOTE VIT B12 IM ADMIN BY JAS HICKS LOT#[id number] EXP 12/21
[2020-05-30 12:24] LABS: Calcium 8.7 mg/dL (8.5-10.1); Magnesium 2.5 mg/dL (1.6-2.6); Potassium 4.5 mmol/L (3.5-5.1)
[2020-05-30 12:28] LABS: BUN/Creatinine Ratio 26.5
[2020-05-30 12:32] LABS: Basophils # (auto) 0 10 ^3/uL (0-0.2); Eosinophils # (auto) 0.1 10 ^3/uL (0-0.8); Eosinophils % (auto) 3.5 % (0.0-7.0); Hematocrit 30.9 % (41.0-53.0); Hemoglobin 10.8 g/dL (13.5-17.5); Lymphocytes # (auto) 0.9 10 ^3/uL (0.4-5.4); Lymphocytes % (auto) 22.9 % (10.0-50.0); Mean Corpuscular Hemoglobin 32.6 pg (28.0-32.0); Mean Corpuscular Hgb Conc. 34.8 g/dL (32.0-36.0); Mean Corpuscular Volume 93.5 fL (80.0-100.0); Monocytes # (auto) 0.3 10 ^3/uL (0-1.3); Monocytes % (auto) 6.9 % (0.0-12.0); Neutrophils # (auto) 2.7 10 ^3/uL (1.6-8.6); Neutrophils % (auto) 65.7 % (37.0-80.0); Platelet Count (auto) 207 10^3/uL (140-450); Red Cell Distribution Width 14.4 % (11.8-14.3); White Blood Cell 4.1 10^3/uL (4.4-10.8)
== END | disposition home or self-care (01) ==
LOC: CHF HDHVI 09:59
PROVIDERS: ATTEND Internal Medicine Cardiovascular Disease
DX: I11.0 Hypertensive heart disease with heart failure (principal); I50.23 Acute on chronic systolic (congestive) heart failure; R53.83 Other fatigue; I25.10 Atherosclerotic heart disease of native coronary artery without angina pectoris; D64.9 Anemia, unspecified; E11.9 Type 2 diabetes mellitus without complications; E78.00 Pure hypercholesterolemia, unspecified; Z79.899 Other long term (current) drug therapy; Z85.46 Personal history of malignant neoplasm of prostate
CPT/HCPCS: 36415; 80048; 83735; 83880; 85025; 96372; G0463; J3420

== ENCOUNTER → 2020-06-06 | Outpatient (CLI) | payer MEDICARE, BC ==
[~2020-06-06] MED LIST changes: +TESTOSTERONE CYPIONATE 200 MG/ML 1ML VIAL IM ONE
[2020-06-06 10:08] VITALS: BP 109/46
[2020-06-06 10:41] VITALS: BP 123/44
[2020-06-06 12:20] LABS: Potassium 4.3 mmol/L (3.5-5.1)
== END | disposition home or self-care (01) ==
LOC: CHF HDHVI 10:23
PROVIDERS: ATTEND Internal Medicine Cardiovascular Disease
DX: E29.1 Testicular hypofunction (principal); R53.83 Other fatigue; I11.0 Hypertensive heart disease with heart failure; I50.23 Acute on chronic systolic (congestive) heart failure; I25.10 Atherosclerotic heart disease of native coronary artery without angina pectoris; E11.9 Type 2 diabetes mellitus without complications; Z79.899 Other long term (current) drug therapy; Z85.46 Personal history of malignant neoplasm of prostate; Z95.1 Presence of aortocoronary bypass graft
CPT/HCPCS: 36415; 82565; 83880; 84132; 84520; 96372; G0463; J1071; J3420

== ENCOUNTER → 2020-06-20 | Outpatient (CLI) | payer MEDICARE, BC ==
[~2020-06-20] VITALS: Ht 30.5 cm; Wt 62.1 kg
[~2020-06-20] MED LIST changes: +FUROSEMIDE 20 MG/2 ML VIAL IV ONE; +FUROSEMIDE 20 MG/2 ML VIAL ONE
[2020-06-20 10:00] VITALS: BP 123/44
--- NOTE | 2020-06-20 10:00 | NUR ---
PATIENT INTO CLINIC FOR BIWEEKLY SCHEDULED APPT., AAOX4, AMBULATORY, BREATHING EVEN AND UNLABORED. PATIENT WEIGHT UP 1.1LBS FROM LAST VISIT, STATES HE HAS INCREASED SOB DURING EXERTION.
[2020-06-20 11:18] VITALS: BP 116/44
--- NOTE | 2020-06-20 11:18 | NUR ---
Discharge Instructions See e-MAR for any mediations given with this visit. Patient education given on disease process. Patient verbalized understanding. Previous labs reviewed. Patient discharged in stable condition with after care instructions and follow up appointment. NOTE B12 IM L DELTOID ADMIN BY VEE DANGELO. TESTOSTERONE IM L GLUTE ADMIN BY VEE DANGELO. LASIX IVP ADMIN BY LETICIA GRAF. BLOOD DRAWN BY LETICIA GRAF AND SENT TO LAB.
[2020-06-20 12:26] LABS: Basophils # (auto) 0.1 10 ^3/uL (0-0.2); Basophils % (auto) 1.5 % (0.0-2.0); Eosinophils # (auto) 0.2 10 ^3/uL (0-0.8); Hemoglobin 10.5 g/dL (13.5-17.5); Lymphocytes # (auto) 0.8 10 ^3/uL (0.4-5.4); Lymphocytes % (auto) 19.9 % (10.0-50.0); Mean Corpuscular Hemoglobin 32.4 pg (28.0-32.0); Mean Corpuscular Hgb Conc. 33.7 g/dL (32.0-36.0); Mean Corpuscular Volume 96.1 fL (80.0-100.0); Monocytes # (auto) 0.3 10 ^3/uL (0-1.3); Monocytes % (auto) 8.6 % (0.0-12.0); Neutrophils # (auto) 2.6 10 ^3/uL (1.6-8.6); Nucleated Red Blood Cells % 0.1 %; Platelet Count (auto) 140 10^3/uL (140-450); Red Blood Cells 3.23 10^6/uL (4.5-5.90); Red Cell Distribution Width 16.7 % (11.8-14.3)
[2020-06-20 12:38] LABS: Potassium 4.3 mmol/L (3.5-5.1)
== END | disposition home or self-care (01) ==
LOC: CHF HDHVI 10:08
PROVIDERS: ATTEND Internal Medicine Cardiovascular Disease
DX: I11.0 Hypertensive heart disease with heart failure (principal); I50.23 Acute on chronic systolic (congestive) heart failure; E29.1 Testicular hypofunction; R53.1 Weakness; D64.9 Anemia, unspecified; I25.10 Atherosclerotic heart disease of native coronary artery without angina pectoris; R53.83 Other fatigue; E11.9 Type 2 diabetes mellitus without complications; Z79.899 Other long term (current) drug therapy; Z85.46 Personal history of malignant neoplasm of prostate; Z95.1 Presence of aortocoronary bypass graft
CPT/HCPCS: 36415; 82565; 83880; 84132; 84520; 85025; 96372; 96374; G0463; J1071; J1940; J3420

== ENCOUNTER → 2020-07-04 | Outpatient (CLI) | payer MEDICARE, BC ==
[~2020-07-04] MED LIST changes: -FUROSEMIDE 20 MG/2 ML VIAL IV ONE; -FUROSEMIDE 20 MG/2 ML VIAL ONE
[2020-07-04 09:56] VITALS: BP 133/65
[2020-07-04 10:46] VITALS: BP 117/46
[2020-07-04 12:09] LABS: Basophils # (auto) 0.1 10 ^3/uL (0-0.2); Eosinophils # (auto) 0.3 10 ^3/uL (0-0.8); Eosinophils % (auto) 5.4 % (0.0-7.0); Hemoglobin 12.5 g/dL (13.5-17.5); Lymphocytes # (auto) 0.8 10 ^3/uL (0.4-5.4); Lymphocytes % (auto) 15.7 % (10.0-50.0); Mean Corpuscular Hgb Conc. 33.8 g/dL (32.0-36.0); Mean Corpuscular Volume 94.8 fL (80.0-100.0); Monocytes # (auto) 0.3 10 ^3/uL (0-1.3); Neutrophils # (auto) 3.8 10 ^3/uL (1.6-8.6); Neutrophils % (auto) 71.9 % (37.0-80.0); Nucleated Red Blood Cells % 0.1 %; Platelet Count (auto) 164 10^3/uL (140-450); Red Cell Distribution Width 17.1 % (11.8-14.3); White Blood Cell 5.3 10^3/uL (4.4-10.8)
[2020-07-04 12:16] LABS: BUN/Creatinine Ratio 21.9; Calcium 8.9 mg/dL (8.5-10.1); Potassium 5.1 mmol/L (3.5-5.1)
== END | disposition home or self-care (01) ==
LOC: CHF HDHVI 10:18
PROVIDERS: ATTEND Internal Medicine Cardiovascular Disease
DX: E29.1 Testicular hypofunction (principal); R53.83 Other fatigue; I11.0 Hypertensive heart disease with heart failure; I50.23 Acute on chronic systolic (congestive) heart failure; D64.9 Anemia, unspecified; I25.10 Atherosclerotic heart disease of native coronary artery without angina pectoris; E11.9 Type 2 diabetes mellitus without complications; Z79.899 Other long term (current) drug therapy; Z85.46 Personal history of malignant neoplasm of prostate; Z95.1 Presence of aortocoronary bypass graft
CPT/HCPCS: 36415; 80048; 83880; 85025; 96372; G0463; J1071; J3420

== ENCOUNTER → 2020-07-18 | Outpatient (CLI) | payer MEDICARE, BC ==
[~2020-07-18] MED LIST changes: +CETI1TAB36 PO; -CYANOCOBALAMIN (B-12) 1000 MCG/1 ML VIAL IM ONE; -CYANOCOBALAMIN (B-12) 1000 MCG/1 ML VIAL ONE; +FURO1TAB33 PO; +LINA5TAB PO; +LORA-655 PO; +POTA1TAB61 PO; +TAM04C PO; -TESTOSTERONE CYPIONATE 200 MG/ML 1ML VIAL IM ONE
[2020-07-18 12:19] LABS: Calcium 8.9 mg/dL (8.5-10.1); Potassium 4.5 mmol/L (3.5-5.1)
[2020-07-18 12:27] LABS: Albumin 3.8 g/dL (3.4-5.0); BUN/Creatinine Ratio 26.3; Bilirubin, Total 0.7 mg/dL (0.2-1.0); Total Protein 8.4 g/dL (6.4-8.2)
== END | disposition home or self-care (01) ==
LOC: CHF HDHVI 09:47
PROVIDERS: ATTEND Internal Medicine Cardiovascular Disease
DX: I50.23 Acute on chronic systolic (congestive) heart failure (principal); E11.9 Type 2 diabetes mellitus without complications
CPT/HCPCS: 36415; 80053; 82607; 83036; 83735; 83880

== ENCOUNTER → 2020-07-25 | Outpatient (CLI) | payer MEDICARE, BC ==
[~2020-07-25] MED LIST changes: -CETI1TAB36 PO; +CYANOCOBALAMIN (B-12) 1000 MCG/1 ML VIAL IM ONE; +CYANOCOBALAMIN (B-12) 1000 MCG/1 ML VIAL ONE; -FURO1TAB33 PO; -LINA5TAB PO; -LORA-655 PO; -POTA1TAB61 PO; -TAM04C PO; +TESTOSTERONE CYPIONATE 200 MG/ML 1ML VIAL IM ONE
[2020-07-25 09:55] VITALS: BP 129/50
[2020-07-25 10:50] VITALS: BP 101/53
== END | disposition home or self-care (01) ==
LOC: CHF HDHVI 10:26
PROVIDERS: ATTEND Internal Medicine Cardiovascular Disease
DX: E29.1 Testicular hypofunction (principal); R53.83 Other fatigue; I11.0 Hypertensive heart disease with heart failure; I50.22 Chronic systolic (congestive) heart failure; I25.10 Atherosclerotic heart disease of native coronary artery without angina pectoris; E11.9 Type 2 diabetes mellitus without complications; Z95.1 Presence of aortocoronary bypass graft; Z79.899 Other long term (current) drug therapy; Z85.46 Personal history of malignant neoplasm of prostate
CPT/HCPCS: 96372; G0463; J1071; J3420

== ENCOUNTER → 2020-08-08 | Outpatient (CLI) | payer MEDICARE, BC ==
[~2020-08-08] MED LIST changes: -CYANOCOBALAMIN (B-12) 1000 MCG/1 ML VIAL IM ONE; -CYANOCOBALAMIN (B-12) 1000 MCG/1 ML VIAL ONE; -TESTOSTERONE CYPIONATE 200 MG/ML 1ML VIAL IM ONE
[2020-08-08 10:09] VITALS: BP 100/40
[2020-08-08 12:21] LABS: Potassium 4.6 mmol/L (3.5-5.1)
== END | disposition home or self-care (01) ==
LOC: CHF HDHVI 10:16
PROVIDERS: ATTEND Internal Medicine Cardiovascular Disease
DX: I50.23 Acute on chronic systolic (congestive) heart failure (principal)
CPT/HCPCS: 36415; 82565; 83880; 84132; 84520; G0463

== ENCOUNTER → 2020-08-22 | Outpatient (CLI) | payer MEDICARE, BC ==
[~2020-08-22] VITALS: Ht 30.5 cm; Wt 0.5 kg
[~2020-08-22] MED LIST changes: +CYANOCOBALAMIN (B-12) 1000 MCG/1 ML VIAL IM ONE; +CYANOCOBALAMIN (B-12) 1000 MCG/1 ML VIAL ONE; +TESTOSTERONE CYPIONATE 200 MG/ML 1ML VIAL IM ONE
[2020-08-22 09:34] VITALS: BP 121/48
[2020-08-22 09:52] VITALS: BP 133/46
[2020-08-22 11:44] LABS: Basophils # (auto) 0.1 10 ^3/uL (0-0.2); Basophils % (auto) 1.4 % (0.0-2.0); Eosinophils # (auto) 0.2 10 ^3/uL (0-0.8); Eosinophils % (auto) 4.2 % (0.0-7.0); Hematocrit 35.5 % (41.0-53.0); Lymphocytes # (auto) 1.1 10 ^3/uL (0.4-5.4); Lymphocytes % (auto) 26.2 % (10.0-50.0); Mean Corpuscular Hemoglobin 31.7 pg (28.0-32.0); Mean Corpuscular Hgb Conc. 33.7 g/dL (32.0-36.0); Mean Corpuscular Volume 94.2 fL (80.0-100.0); Monocytes # (auto) 0.4 10 ^3/uL (0-1.3); Monocytes % (auto) 8.2 % (0.0-12.0); Neutrophils # (auto) 2.5 10 ^3/uL (1.6-8.6); Nucleated Red Blood Cells % 0.3 %; Platelet Count (auto) 131 10^3/uL (140-450); Red Blood Cells 3.77 10^6/uL (4.5-5.90); Red Cell Distribution Width 15.9 % (11.8-14.3); White Blood Cell 4.3 10^3/uL (4.4-10.8)
[2020-08-22 11:51] LABS: Potassium 4.4 mmol/L (3.5-5.1)
[2020-08-22 11:58] LABS: BUN/Creatinine Ratio 27.5; Calcium 9.1 mg/dL (8.5-10.1)
== END | disposition home or self-care (01) ==
LOC: CHF HDHVI 09:59
PROVIDERS: ATTEND Internal Medicine Cardiovascular Disease
DX: E29.1 Testicular hypofunction (principal); R53.83 Other fatigue; I27.21 Secondary pulmonary arterial hypertension; I11.0 Hypertensive heart disease with heart failure; I50.22 Chronic systolic (congestive) heart failure; I25.10 Atherosclerotic heart disease of native coronary artery without angina pectoris; E11.9 Type 2 diabetes mellitus without complications; Z85.46 Personal history of malignant neoplasm of prostate; Z95.1 Presence of aortocoronary bypass graft; Z79.899 Other long term (current) drug therapy
CPT/HCPCS: 36415; 80048; 83880; 85025; 96372; G0463; J1071; J3420

== ENCOUNTER → 2020-09-05 | Outpatient (CLI) | payer MEDICARE, BC ==
[~2020-09-05] VITALS: Ht 30.5 cm; Wt 62.9 kg
[2020-09-05 09:50] VITALS: BP 141/46
[2020-09-05 11:49] LABS: Basophils # (auto) 0 10 ^3/uL (0-0.2); Basophils % (auto) 0.8 % (0.0-2.0); Eosinophils # (auto) 0.1 10 ^3/uL (0-0.8); Eosinophils % (auto) 2.1 % (0.0-7.0); Hematocrit 34.3 % (41.0-53.0); Hemoglobin 11.7 g/dL (13.5-17.5); Lymphocytes % (auto) 17.5 % (10.0-50.0); Mean Corpuscular Hemoglobin 32.2 pg (28.0-32.0); Mean Corpuscular Hgb Conc. 34.2 g/dL (32.0-36.0); Mean Corpuscular Volume 94.1 fL (80.0-100.0); Monocytes # (auto) 0.3 10 ^3/uL (0-1.3); Neutrophils # (auto) 4.2 10 ^3/uL (1.6-8.6); Neutrophils % (auto) 73.6 % (37.0-80.0); Nucleated Red Blood Cells % 0.1 %; Platelet Count (auto) 133 10^3/uL (140-450); Red Blood Cells 3.64 10^6/uL (4.5-5.90); Red Cell Distribution Width 16.3 % (11.8-14.3); White Blood Cell 5.7 10^3/uL (4.4-10.8)
[2020-09-05 12:00] LABS: BUN/Creatinine Ratio 21.5; Calcium 8.7 mg/dL (8.5-10.1); Magnesium 2.1 mg/dL (1.6-2.6)
== END | disposition home or self-care (01) ==
LOC: CHF HDHVI 09:53
PROVIDERS: ATTEND Internal Medicine Cardiovascular Disease
DX: E29.1 Testicular hypofunction (principal); R53.83 Other fatigue; I11.0 Hypertensive heart disease with heart failure; I50.23 Acute on chronic systolic (congestive) heart failure; I25.10 Atherosclerotic heart disease of native coronary artery without angina pectoris; E11.9 Type 2 diabetes mellitus without complications; Z79.899 Other long term (current) drug therapy; Z85.46 Personal history of malignant neoplasm of prostate; Z95.1 Presence of aortocoronary bypass graft
CPT/HCPCS: 36415; 80048; 83735; 85025; 96372; G0463; J1071; J3420

== ENCOUNTER → 2020-09-27 | Outpatient (CLI) | payer MEDICARE, BC ==
[2020-09-27 10:19] VITALS: BP 122/44
[2020-09-27 11:42] LABS: Basophils # (auto) 0.1 10 ^3/uL (0-0.2); Basophils % (auto) 1.7 % (0.0-2.0); Eosinophils # (auto) 0.2 10 ^3/uL (0-0.8); Hematocrit 35.7 % (41.0-53.0); Hemoglobin 12.2 g/dL (13.5-17.5); Lymphocytes # (auto) 0.8 10 ^3/uL (0.4-5.4); Lymphocytes % (auto) 19.6 % (10.0-50.0); Mean Corpuscular Hemoglobin 32.2 pg (28.0-32.0); Mean Corpuscular Hgb Conc. 34.2 g/dL (32.0-36.0); Monocytes # (auto) 0.3 10 ^3/uL (0-1.3); Monocytes % (auto) 7.1 % (0.0-12.0); Neutrophils # (auto) 2.7 10 ^3/uL (1.6-8.6); Neutrophils % (auto) 67.6 % (37.0-80.0); Nucleated Red Blood Cells % 0.2 %; Platelet Count (auto) 138 10^3/uL (140-450); Red Cell Distribution Width 16.1 % (11.8-14.3)
[2020-09-27 12:00] LABS: Calcium 8.7 mg/dL (8.5-10.1); Magnesium 2.4 mg/dL (1.6-2.6); Potassium 4.5 mmol/L (3.5-5.1)
[2020-09-27 12:16] LABS: BUN/Creatinine Ratio 16.7
== END | disposition home or self-care (01) ==
LOC: CHF HDHVI 09:51
PROVIDERS: ATTEND Internal Medicine Cardiovascular Disease
DX: I11.0 Hypertensive heart disease with heart failure (principal); I50.23 Acute on chronic systolic (congestive) heart failure; I08.8 Other rheumatic multiple valve diseases; I25.10 Atherosclerotic heart disease of native coronary artery without angina pectoris; E29.1 Testicular hypofunction; E11.9 Type 2 diabetes mellitus without complications; Z79.899 Other long term (current) drug therapy; Z95.1 Presence of aortocoronary bypass graft
CPT/HCPCS: 36415; 80048; 83735; 83880; 84403; 85025; 96372; G0463; J1071; J3420

== ENCOUNTER → 2020-09-28 | Outpatient (CLI) | payer MEDICARE, BC ==
[~2020-09-28] MED LIST changes: -CYANOCOBALAMIN (B-12) 1000 MCG/1 ML VIAL IM ONE; -CYANOCOBALAMIN (B-12) 1000 MCG/1 ML VIAL ONE; -TESTOSTERONE CYPIONATE 200 MG/ML 1ML VIAL IM ONE
== END | disposition home or self-care (01) ==
LOC: CHF HDHVI 10:56
PROVIDERS: ATTEND Internal Medicine Cardiovascular Disease
DX: I08.8 Other rheumatic multiple valve diseases (principal); I50.20 Unspecified systolic (congestive) heart failure
CPT/HCPCS: 93306

== ENCOUNTER → 2020-10-18 | Outpatient (CLI) | payer MEDICARE, BC ==
[~2020-10-18] MED LIST changes: +CYANOCOBALAMIN (B-12) 1000 MCG/1 ML VIAL IM ONE; +CYANOCOBALAMIN (B-12) 1000 MCG/1 ML VIAL ONE; +TESTOSTERONE CYPIONATE 200 MG/ML 1ML VIAL IM ONE
[2020-10-18 10:37] VITALS: BP 140/52
[2020-10-18 11:54] LABS: Basophils # (auto) 0.1 10 ^3/uL (0-0.2); Basophils % (auto) 1.3 % (0.0-2.0); Eosinophils # (auto) 0.2 10 ^3/uL (0-0.8); Eosinophils % (auto) 4.5 % (0.0-7.0); Hematocrit 38.2 % (41.0-53.0); Hemoglobin 13.4 g/dL (13.5-17.5); Lymphocytes # (auto) 1.1 10 ^3/uL (0.4-5.4); Mean Corpuscular Hemoglobin 32.8 pg (28.0-32.0); Mean Corpuscular Hgb Conc. 35.1 g/dL (32.0-36.0); Mean Corpuscular Volume 93.5 fL (80.0-100.0); Monocytes # (auto) 0.3 10 ^3/uL (0-1.3); Monocytes % (auto) 5.5 % (0.0-12.0); Neutrophils # (auto) 3.4 10 ^3/uL (1.6-8.6); Neutrophils % (auto) 66.7 % (37.0-80.0); Nucleated Red Blood Cells % 0.1 %; Platelet Count (auto) 154 10^3/uL (140-450); Red Blood Cells 4.08 10^6/uL (4.5-5.90); Red Cell Distribution Width 16.5 % (11.8-14.3); White Blood Cell 5.1 10^3/uL (4.4-10.8)
[2020-10-18 12:24] LABS: Calcium 8.8 mg/dL (8.5-10.1); Magnesium 2.3 mg/dL (1.6-2.6)
[2020-10-18 12:26] LABS: BUN/Creatinine Ratio 20.8
== END | disposition home or self-care (01) ==
LOC: CHF HDHVI 10:04
PROVIDERS: ATTEND Internal Medicine Cardiovascular Disease
DX: E29.1 Testicular hypofunction (principal); R53.83 Other fatigue; I11.0 Hypertensive heart disease with heart failure; I50.23 Acute on chronic systolic (congestive) heart failure; I25.10 Atherosclerotic heart disease of native coronary artery without angina pectoris; E11.9 Type 2 diabetes mellitus without complications; Z79.899 Other long term (current) drug therapy; Z85.46 Personal history of malignant neoplasm of prostate; Z95.1 Presence of aortocoronary bypass graft
CPT/HCPCS: 36415; 80048; 83735; 83880; 85025; 96372; G0463; J1071; J3420

== ENCOUNTER → 2020-11-15 | Outpatient (CLI) | payer MEDICARE, BC ==
[2020-11-15 10:07] VITALS: BP 141/51
[2020-11-15 12:23] LABS: Potassium 4.9 mmol/L (3.5-5.1)
== END | disposition home or self-care (01) ==
LOC: CHF HDHVI 09:41
PROVIDERS: ATTEND Internal Medicine Cardiovascular Disease
DX: E29.1 Testicular hypofunction (principal); R53.83 Other fatigue; I11.0 Hypertensive heart disease with heart failure; I50.23 Acute on chronic systolic (congestive) heart failure; I25.10 Atherosclerotic heart disease of native coronary artery without angina pectoris; E11.9 Type 2 diabetes mellitus without complications; Z79.899 Other long term (current) drug therapy; Z85.46 Personal history of malignant neoplasm of prostate; Z95.5 Presence of coronary angioplasty implant and graft
CPT/HCPCS: 36415; 82565; 83880; 84132; 84520; 96372; G0463; J1071; J3420

== ENCOUNTER → 2021-01-03 | Outpatient (CLI) | payer MEDICARE, BC ==
[~2021-01-03] MED LIST changes: -CYANOCOBALAMIN (B-12) 1000 MCG/1 ML VIAL IM ONE; -CYANOCOBALAMIN (B-12) 1000 MCG/1 ML VIAL ONE
[2021-01-03 09:45] VITALS: BP 136/52
[2021-01-03 10:40] VITALS: BP 111/42
[2021-01-03 12:24] LABS: Basophils # (auto) 0 10 ^3/uL (0-0.2); Basophils % (auto) 0.5 % (0.0-2.0); Eosinophils # (auto) 0.1 10 ^3/uL (0-0.8); Eosinophils % (auto) 0.7 % (0.0-7.0); Hematocrit 34.1 % (41.0-53.0); Hemoglobin 12.1 g/dL (13.5-17.5); Lymphocytes % (auto) 10.7 % (10.0-50.0); Mean Corpuscular Hemoglobin 33.1 pg (28.0-32.0); Mean Corpuscular Hgb Conc. 35.4 g/dL (32.0-36.0); Mean Corpuscular Volume 93.4 fL (80.0-100.0); Monocytes # (auto) 0.6 10 ^3/uL (0-1.3); Monocytes % (auto) 5.9 % (0.0-12.0); Neutrophils # (auto) 7.8 10 ^3/uL (1.6-8.6); Neutrophils % (auto) 82.2 % (37.0-80.0); Nucleated Red Blood Cells % 0.1 %; Red Blood Cells 3.65 10^6/uL (4.5-5.90); Red Cell Distribution Width 14.6 % (11.8-14.3); White Blood Cell 9.5 10^3/uL (4.4-10.8)
[2021-01-03 12:29] LABS: Calcium 8.1 mg/dL (8.5-10.1); Potassium 4.4 mmol/L (3.5-5.1)
[2021-01-03 12:35] LABS: Albumin 3.3 g/dL (3.4-5.0); BUN/Creatinine Ratio 20.6; Bilirubin, Total 1.1 mg/dL (0.2-1.0)
== END | disposition home or self-care (01) ==
LOC: Rad HDHVI 10:06
PROVIDERS: ATTEND Internal Medicine Cardiovascular Disease
DX: E29.1 Testicular hypofunction (principal); I11.0 Hypertensive heart disease with heart failure; I50.23 Acute on chronic systolic (congestive) heart failure; I25.10 Atherosclerotic heart disease of native coronary artery without angina pectoris; R53.83 Other fatigue; E11.9 Type 2 diabetes mellitus without complications; M16.0 Bilateral primary osteoarthritis of hip; Z85.46 Personal history of malignant neoplasm of prostate; Z79.899 Other long term (current) drug therapy; Z95.5 Presence of coronary angioplasty implant and graft
CPT/HCPCS: 36415; 73502; 80053; 83880; 85025; 85049; 96372; G0463; J1071

== ENCOUNTER → 2021-01-24 | Outpatient (CLI) | payer MEDICARE, BC ==
[~2021-01-24] MED LIST changes: +MULTIPLE VIT 10 ML IV ONE; +MVI in SODIUM CHLORIDE 0.9% 500 ML IVB ONE; -TESTOSTERONE CYPIONATE 200 MG/ML 1ML VIAL IM ONE
[2021-01-24 14:35] VITALS: BP 104/42
[2021-01-24 15:25] LABS: Basophils # (auto) 0.1 10 ^3/uL (0-0.2); Basophils % (auto) 1.1 % (0.0-2.0); Eosinophils # (auto) 0.2 10 ^3/uL (0-0.8); Eosinophils % (auto) 3.8 % (0.0-7.0); Hematocrit 30.7 % (41.0-53.0); Hemoglobin 10.5 g/dL (13.5-17.5); Lymphocytes # (auto) 1.1 10 ^3/uL (0.4-5.4); Lymphocytes % (auto) 18.3 % (10.0-50.0); Mean Corpuscular Hemoglobin 31.6 pg (28.0-32.0); Mean Corpuscular Hgb Conc. 34.2 g/dL (32.0-36.0); Mean Corpuscular Volume 92.4 fL (80.0-100.0); Monocytes # (auto) 0.5 10 ^3/uL (0-1.3); Monocytes % (auto) 8.8 % (0.0-12.0); Neutrophils # (auto) 4.1 10 ^3/uL (1.6-8.6); Nucleated Red Blood Cells % 0.1 %; Red Blood Cells 3.32 10^6/uL (4.5-5.90); Red Cell Distribution Width 14.3 % (11.8-14.3)
[2021-01-24 15:37] LABS: BUN/Creatinine Ratio 24.5; Calcium 8.4 mg/dL (8.5-10.1); Potassium 4.5 mmol/L (3.5-5.1)
== END | disposition home or self-care (01) ==
LOC: CHF HDHVI 10:58
PROVIDERS: ATTEND Internal Medicine Cardiovascular Disease
DX: I95.9 Hypotension, unspecified (principal); E86.0 Dehydration; R53.83 Other fatigue; I11.0 Hypertensive heart disease with heart failure; I50.23 Acute on chronic systolic (congestive) heart failure; I25.10 Atherosclerotic heart disease of native coronary artery without angina pectoris; E11.9 Type 2 diabetes mellitus without complications; M16.0 Bilateral primary osteoarthritis of hip; Z79.899 Other long term (current) drug therapy; Z85.46 Personal history of malignant neoplasm of prostate; Z95.5 Presence of coronary angioplasty implant and graft
CPT/HCPCS: 36415; 80048; 83880; 85025; 93005; 96365; 96366; G0463; J7040

== ENCOUNTER → 2021-01-27 | Outpatient (CLI) | payer MEDICARE, BC ==
[~2021-01-27] MED LIST changes: +CYANOCOBALAMIN (B-12) 1000 MCG/1 ML VIAL IM ONE; +CYANOCOBALAMIN (B-12) 1000 MCG/1 ML VIAL ONE; -MULTIPLE VIT 10 ML IV ONE; -MVI in SODIUM CHLORIDE 0.9% 500 ML IVB ONE; +SODIUM FERR GLUC 62.5MG/5ML 125 MG in SODIUM CHL 0.9% 100 ML IV ONE; +SODIUM FERRIC GLUC CPLEX 62.5MG/5ML VIAL IV ONE
[2021-01-27 12:00] VITALS: BP 113/45
[2021-01-27 13:15] VITALS: BP 114/43
[2021-01-27 15:17] LABS: % Iron Saturation 18.6 % (20-55)
[2021-01-27 15:24] LABS: Basophils # (auto) 0.1 10 ^3/uL (0-0.2); Basophils % (auto) 0.9 % (0.0-2.0); Eosinophils # (auto) 0.2 10 ^3/uL (0-0.8); Eosinophils % (auto) 3.4 % (0.0-7.0); Hematocrit 31.4 % (41.0-53.0); Hemoglobin 10.9 g/dL (13.5-17.5); Lymphocytes % (auto) 14.4 % (10.0-50.0); Mean Corpuscular Hemoglobin 31.7 pg (28.0-32.0); Mean Corpuscular Hgb Conc. 34.7 g/dL (32.0-36.0); Mean Corpuscular Volume 91.6 fL (80.0-100.0); Monocytes # (auto) 0.4 10 ^3/uL (0-1.3); Monocytes % (auto) 6.2 % (0.0-12.0); Neutrophils # (auto) 5.2 10 ^3/uL (1.6-8.6); Neutrophils % (auto) 75.1 % (37.0-80.0); Red Blood Cells 3.43 10^6/uL (4.5-5.90); Red Cell Distribution Width 14.3 % (11.8-14.3); White Blood Cell 6.9 10^3/uL (4.4-10.8)
== END | disposition home or self-care (01) ==
LOC: Rad HDHVI 10:59
PROVIDERS: ATTEND Internal Medicine Cardiovascular Disease
DX: D50.9 Iron deficiency anemia, unspecified (principal); I11.0 Hypertensive heart disease with heart failure; I50.23 Acute on chronic systolic (congestive) heart failure; I25.10 Atherosclerotic heart disease of native coronary artery without angina pectoris; E11.9 Type 2 diabetes mellitus without complications; M16.0 Bilateral primary osteoarthritis of hip; Z95.5 Presence of coronary angioplasty implant and graft; Z79.899 Other long term (current) drug therapy; Z85.46 Personal history of malignant neoplasm of prostate
CPT/HCPCS: 36415; 83540; 83550; 85025; 93925; 96365; 96372; G0463; J2916; J3420

== ENCOUNTER → 2021-01-30 | Outpatient (CLI) | payer MEDICARE, BC ==
[~2021-01-30] MED LIST changes: -CYANOCOBALAMIN (B-12) 1000 MCG/1 ML VIAL IM ONE; -CYANOCOBALAMIN (B-12) 1000 MCG/1 ML VIAL ONE
[2021-01-30 16:08] VITALS: BP 113/44
== END | disposition home or self-care (01) ==
LOC: CHF HDHVI 14:09
PROVIDERS: ATTEND Internal Medicine Cardiovascular Disease
DX: D50.9 Iron deficiency anemia, unspecified (principal); I11.0 Hypertensive heart disease with heart failure; I50.23 Acute on chronic systolic (congestive) heart failure; I25.10 Atherosclerotic heart disease of native coronary artery without angina pectoris; E11.9 Type 2 diabetes mellitus without complications; R53.83 Other fatigue; M16.0 Bilateral primary osteoarthritis of hip; Z79.899 Other long term (current) drug therapy; Z85.46 Personal history of malignant neoplasm of prostate; Z95.5 Presence of coronary angioplasty implant and graft
CPT/HCPCS: 96365; G0463; J2916

== ENCOUNTER → 2021-02-07 | Outpatient (CLI) | payer MEDICARE, BC ==
[~2021-02-07] MED LIST changes: +CYANOCOBALAMIN (B-12) 1000 MCG/1 ML VIAL IM ONE; +CYANOCOBALAMIN (B-12) 1000 MCG/1 ML VIAL ONE
[2021-02-07 10:09] VITALS: BP 90/43
[2021-02-07 11:32] VITALS: BP 103/42
== END | disposition home or self-care (01) ==
LOC: CHF HDHVI 10:18
PROVIDERS: ATTEND Internal Medicine Cardiovascular Disease
DX: D50.9 Iron deficiency anemia, unspecified (principal); R53.83 Other fatigue; I11.0 Hypertensive heart disease with heart failure; I50.23 Acute on chronic systolic (congestive) heart failure; I25.10 Atherosclerotic heart disease of native coronary artery without angina pectoris; E11.9 Type 2 diabetes mellitus without complications; M16.0 Bilateral primary osteoarthritis of hip; Z85.46 Personal history of malignant neoplasm of prostate; Z95.5 Presence of coronary angioplasty implant and graft
CPT/HCPCS: 96365; 96372; G0463; J2916; J3420

== ENCOUNTER → 2021-02-14 | Outpatient (CLI) | payer MEDICARE, BC ==
[~2021-02-14] MED LIST changes: -CYANOCOBALAMIN (B-12) 1000 MCG/1 ML VIAL IM ONE; -CYANOCOBALAMIN (B-12) 1000 MCG/1 ML VIAL ONE; -SODIUM FERR GLUC 62.5MG/5ML 125 MG in SODIUM CHL 0.9% 100 ML IV ONE; -SODIUM FERRIC GLUC CPLEX 62.5MG/5ML VIAL IV ONE
[2021-02-14 11:38] LABS: Basophils # (auto) 0.1 10 ^3/uL (0-0.2); Basophils % (auto) 1.2 % (0.0-2.0); Eosinophils # (auto) 0.3 10 ^3/uL (0-0.8); Hematocrit 28.6 % (41.0-53.0); Hemoglobin 9.8 g/dL (13.5-17.5); Lymphocytes # (auto) 0.9 10 ^3/uL (0.4-5.4); Lymphocytes % (auto) 13.6 % (10.0-50.0); Mean Corpuscular Hemoglobin 31.3 pg (28.0-32.0); Mean Corpuscular Hgb Conc. 34.3 g/dL (32.0-36.0); Mean Corpuscular Volume 91.3 fL (80.0-100.0); Monocytes # (auto) 0.3 10 ^3/uL (0-1.3); Monocytes % (auto) 5.1 % (0.0-12.0); Neutrophils # (auto) 4.8 10 ^3/uL (1.6-8.6); Neutrophils % (auto) 75.1 % (37.0-80.0); Red Blood Cells 3.14 10^6/uL (4.5-5.90); Red Cell Distribution Width 15.7 % (11.8-14.3); White Blood Cell 6.5 10^3/uL (4.4-10.8)
[2021-02-14 12:04] LABS: BUN/Creatinine Ratio 21.2; Calcium 8.6 mg/dL (8.5-10.1); Potassium 3.8 mmol/L (3.5-5.1)
== END | disposition home or self-care (01) ==
LOC: LAB 09:34
PROVIDERS: ATTEND Internal Medicine Cardiovascular Disease
DX: I10 Essential (primary) hypertension (principal); D64.9 Anemia, unspecified
CPT/HCPCS: 36415; 80048; 83540; 85025

== ENCOUNTER 2021-02-23 06:31 | Day surgery (SDC) | payer MEDICARE, BC ==
[~2021-02-23] VITALS: Ht 165.1 cm; Wt 53.1 kg
[~2021-02-23 06:31] MED LIST changes: +CETI1TAB36 PO; -EMPA1TAB3 PO; -FENO5TAB PO; +FURO1TAB33 PO; +LINA5TAB PO; +LORA-655 PO; +POTA1TAB61 PO; +TAM04C PO
[2021-02-23] MEDS ORDERED: LIDOCAINE 2%HCL (LOCAL ANESTH.) INJ 20ML MDV ONE (07:12)
[2021-02-23] MEDS ORDERED: ANGIOMAX 250 MG VIAL IV ONE (07:36)
[2021-02-23] MEDS ORDERED: SODIUM CHL 0.9% 50 ML ONE (07:37)
[2021-02-23] MEDS ORDERED: fentaNYL CITRATE 100 MCG/2 ML VL ONE (07:37)
[2021-02-23] MEDS ORDERED: MIDAZOLAM HCL 2MG/2ML 2ml VIAL (1mg/ml) ONE (07:37)
[2021-02-23] MEDS ORDERED: HYDROcodone-ACET 5/325MG TAB PO PRN (10:30)
[2021-02-23] MEDS ORDERED: ACETAMINOPHEN 500 MG TAB PO PRN (10:30)
[2021-02-23] MEDS ORDERED: ONDANSETRON HCL 4 MG/2 ML VIAL IV PRN (10:30)
== END 2021-02-23 12:23 | disposition home or self-care (01) ==
LOC: CATH 06:31
PROVIDERS: ATTEND Internal Medicine Cardiovascular Disease
DX: I73.9 Peripheral vascular disease, unspecified (principal); I25.5 Ischemic cardiomyopathy; I25.119 Atherosclerotic heart disease of native coronary artery with unspecified angina pectoris; I11.0 Hypertensive heart disease with heart failure; I50.9 Heart failure, unspecified; E78.5 Hyperlipidemia, unspecified; I25.2 Old myocardial infarction; E11.9 Type 2 diabetes mellitus without complications; M19.90 Unspecified osteoarthritis, unspecified site; Z95.810 Presence of automatic (implantable) cardiac defibrillator; Z87.891 Personal history of nicotine dependence; Z95.5 Presence of coronary angioplasty implant and graft; Z82.49 Family history of ischemic heart disease and other diseases of the circulatory system; Z20.822 Contact with and (suspected) exposure to COVID-19
CPT/HCPCS: 37220; 75716; C1725; C1760; C1769; C1887; C1894; J0583; J1644; J2250; J3010; U0003; 99152; 99153

== ENCOUNTER → 2021-07-26 | Outpatient (CLI) | payer MEDICARE, BC ==
[2021-07-26 15:13] LABS: Basophils # (auto) 0.1 10 ^3/uL (0-0.2); Basophils % (auto) 1.2 % (0.0-2.0); Eosinophils # (auto) 0.1 10 ^3/uL (0-0.8); Hematocrit 30.5 % (41.0-53.0); Hemoglobin 10.6 g/dL (13.5-17.5); Lymphocytes # (auto) 1.1 10 ^3/uL (0.4-5.4); Lymphocytes % (auto) 23.2 % (10.0-50.0); Mean Corpuscular Hemoglobin 33.7 pg (28.0-32.0); Mean Corpuscular Hgb Conc. 34.7 g/dL (32.0-36.0); Mean Corpuscular Volume 97.2 fL (80.0-100.0); Monocytes # (auto) 0.3 10 ^3/uL (0-1.3); Monocytes % (auto) 6.5 % (0.0-12.0); Neutrophils # (auto) 3.2 10 ^3/uL (1.6-8.6); Neutrophils % (auto) 67.1 % (37.0-80.0); Nucleated Red Blood Cells % 0.1 %; Red Blood Cells 3.14 10^6/uL (4.5-5.90); Red Cell Distribution Width 13.8 % (11.8-14.3); White Blood Cell 4.7 10^3/uL (4.4-10.8)
[2021-07-26 15:24] LABS: Albumin 3.7 g/dL (3.4-5.0); Calcium 8.7 mg/dL (8.5-10.1); Potassium 4.7 mmol/L (3.5-5.1)
[2021-07-26 15:30] LABS: BUN/Creatinine Ratio 26.2; Bilirubin, Direct 0.2 mg/dL (0-0.2); Bilirubin, Total 0.5 mg/dL (0.2-1.0)
== END | disposition home or self-care (01) ==
LOC: LAB 12:41
PROVIDERS: ATTEND Internal Medicine Cardiovascular Disease
DX: C61 Malignant neoplasm of prostate (principal); E11.9 Type 2 diabetes mellitus without complications; D51.3 Other dietary vitamin B12 deficiency anemia; D64.9 Anemia, unspecified; E55.9 Vitamin D deficiency, unspecified; I10 Essential (primary) hypertension; R00.2 Palpitations; R53.1 Weakness; R30.0 Dysuria
CPT/HCPCS: 36415; 80048; 80061; 80076; 82306; 83036; 84153; 84403; 84443; 85025

== ENCOUNTER → 2021-08-03 | Outpatient (CLI) | payer MEDICARE, BC ==
[~2021-08-03] MED LIST changes: +BACITRACIN TOP OINT 1 UD PKG TOP ONE
[2021-08-03 12:12] VITALS: BP 122/54
[2021-08-03 12:30] VITALS: BP 118/46
== END | disposition home or self-care (01) ==
LOC: Rad HDHVI 11:55
PROVIDERS: ATTEND Internal Medicine
DX: S41.111A Laceration without foreign body of right upper arm, initial encounter (principal); M77.31 Calcaneal spur, right foot; I70.90 Unspecified atherosclerosis; X58.XXXA Exposure to other specified factors, initial encounter; Y93.89 Activity, other specified; Y92.89 Other specified places as the place of occurrence of the external cause; Y99.8 Other external cause status
CPT/HCPCS: 71100; 73630; G0463

== ENCOUNTER → 2021-08-08 | Outpatient (CLI) | payer MEDICARE, BC ==
[~2021-08-08] MED LIST changes: +CYANOCOBALAMIN (B-12) 1000 MCG/1 ML VIAL IM ONE; +CYANOCOBALAMIN (B-12) 1000 MCG/1 ML VIAL ONE
[2021-08-08 10:29] VITALS: BP 120/46
[2021-08-08 11:05] VITALS: BP 103/46
== END | disposition home or self-care (01) ==
LOC: CHF HDHVI 10:05
PROVIDERS: ATTEND Internal Medicine Cardiovascular Disease
DX: S41.112A Laceration without foreign body of left upper arm, initial encounter (principal); E53.8 Deficiency of other specified B group vitamins; M77.31 Calcaneal spur, right foot; I10 Essential (primary) hypertension; E11.9 Type 2 diabetes mellitus without complications; Y93.89 Activity, other specified; Y99.8 Other external cause status
CPT/HCPCS: 96372; G0463; J3420

== ENCOUNTER → 2021-08-15 | Outpatient (CLI) | payer MEDICARE, BC ==
[~2021-08-15] MED LIST changes: -BACITRACIN TOP OINT 1 UD PKG TOP ONE; -CYANOCOBALAMIN (B-12) 1000 MCG/1 ML VIAL IM ONE; -CYANOCOBALAMIN (B-12) 1000 MCG/1 ML VIAL ONE
[2021-08-15 09:58] VITALS: BP 101/45
[2021-08-15 10:20] VITALS: BP 101/44
== END | disposition home or self-care (01) ==
LOC: CHF HDHVI 10:00
PROVIDERS: ATTEND Internal Medicine Cardiovascular Disease
DX: S41.112A Laceration without foreign body of left upper arm, initial encounter (principal); S41.111A Laceration without foreign body of right upper arm, initial encounter; X58.XXXA Exposure to other specified factors, initial encounter; Y93.89 Activity, other specified; Y92.89 Other specified places as the place of occurrence of the external cause; Y99.8 Other external cause status
CPT/HCPCS: G0463

== ENCOUNTER → 2021-08-21 | Outpatient (CLI) | payer MEDICARE, BC ==
[~2021-08-21] MED LIST changes: +CYANOCOBALAMIN (B-12) 1000 MCG/1 ML VIAL IM ONE; +CYANOCOBALAMIN (B-12) 1000 MCG/1 ML VIAL ONE
[2021-08-21 11:22] VITALS: BP 108/64
[2021-08-21 12:11] LABS: Albumin 3.6 g/dL (3.4-5.0); Calcium 8.6 mg/dL (8.5-10.1); Magnesium 2.3 mg/dL (1.6-2.6); Potassium 4.7 mmol/L (3.5-5.1)
[2021-08-21 12:15] LABS: BUN/Creatinine Ratio 28.6; Bilirubin, Total 0.5 mg/dL (0.2-1.0); Total Protein 7.9 g/dL (6.4-8.2)
[2021-08-21 12:17] LABS: Basophils # (auto) 0.1 10 ^3/uL (0-0.2); Basophils % (auto) 1.2 % (0.0-2.0); Eosinophils # (auto) 0.2 10 ^3/uL (0-0.8); Eosinophils % (auto) 3.3 % (0.0-7.0); Hematocrit 28.6 % (41.0-53.0); Hemoglobin 9.9 g/dL (13.5-17.5); Lymphocytes # (auto) 1.1 10 ^3/uL (0.4-5.4); Lymphocytes % (auto) 23.1 % (10.0-50.0); Mean Corpuscular Hemoglobin 33.5 pg (28.0-32.0); Mean Corpuscular Hgb Conc. 34.5 g/dL (32.0-36.0); Mean Corpuscular Volume 97.2 fL (80.0-100.0); Monocytes # (auto) 0.3 10 ^3/uL (0-1.3); Monocytes % (auto) 7.1 % (0.0-12.0); Neutrophils # (auto) 3.1 10 ^3/uL (1.6-8.6); Neutrophils % (auto) 65.3 % (37.0-80.0); Nucleated Red Blood Cells % 0.1 %; Red Blood Cells 2.95 10^6/uL (4.5-5.90); Red Cell Distribution Width 14.9 % (11.8-14.3); White Blood Cell 4.8 10^3/uL (4.4-10.8)
[2021-08-21 12:20] LABS: % Iron Saturation 32.8 % (20-55)
== END | disposition home or self-care (01) ==
LOC: CHF HDHVI 10:00
PROVIDERS: ATTEND Internal Medicine Cardiovascular Disease
DX: I11.0 Hypertensive heart disease with heart failure (principal); I50.23 Acute on chronic systolic (congestive) heart failure; R94.31 Abnormal electrocardiogram [ECG] [EKG]; D51.9 Vitamin B12 deficiency anemia, unspecified; E11.9 Type 2 diabetes mellitus without complications; I70.0 Atherosclerosis of aorta
CPT/HCPCS: 36415; 80053; 83540; 83550; 83735; 83880; 85025; 93005; 96372; G0463; J3420

== ENCOUNTER → 2021-08-25 | Outpatient (CLI) | payer MEDICARE, BC ==
[~2021-08-25] MED LIST changes: -CYANOCOBALAMIN (B-12) 1000 MCG/1 ML VIAL IM ONE; -CYANOCOBALAMIN (B-12) 1000 MCG/1 ML VIAL ONE
== END | disposition home or self-care (01) ==
LOC: Rad HDHVI 14:55
PROVIDERS: ATTEND Internal Medicine Cardiovascular Disease
DX: I34.0 Nonrheumatic mitral (valve) insufficiency (principal); R07.89 Other chest pain
CPT/HCPCS: 93306

== ENCOUNTER → 2021-10-17 | Outpatient (CLI) | payer MEDICARE, BC ==
[2021-10-17] VITALS (11 sets, daily range): BP systolic 92–115; BP diastolic 35–71
[~2021-10-17] MED LIST changes: +DOBUTamine 1000MCG/ML 250 ML IV ONE; +SODIUM CHLORIDE 0.9% 250 ML IV ONE
[2021-10-17 12:10] LABS: Basophils # (auto) 0.1 10 ^3/uL (0-0.2); Basophils % (auto) 2.8 % (0.0-2.0); Eosinophils # (auto) 0.2 10 ^3/uL (0-0.8); Eosinophils % (auto) 4.8 % (0.0-7.0); Hematocrit 29.6 % (41.0-53.0); Hemoglobin 10.1 g/dL (13.5-17.5); Lymphocytes # (auto) 0.8 10 ^3/uL (0.4-5.4); Lymphocytes % (auto) 16.5 % (10.0-50.0); Mean Corpuscular Hemoglobin 33.7 pg (28.0-32.0); Mean Corpuscular Volume 99.2 fL (80.0-100.0); Monocytes # (auto) 0.2 10 ^3/uL (0-1.3); Monocytes % (auto) 4.6 % (0.0-12.0); Neutrophils # (auto) 3.7 10 ^3/uL (1.6-8.6); Neutrophils % (auto) 71.3 % (37.0-80.0); Nucleated Red Blood Cells % 0.1 %; Red Blood Cells 2.99 10^6/uL (4.5-5.90); Red Cell Distribution Width 14.7 % (11.8-14.3); White Blood Cell 5.1 10^3/uL (4.4-10.8)
[2021-10-17 12:45] LABS: Albumin 3.5 g/dL (3.4-5.0); Calcium 8.7 mg/dL (8.5-10.1); Magnesium 2.4 mg/dL (1.6-2.6); Potassium 4.4 mmol/L (3.5-5.1)
[2021-10-17 12:48] LABS: BUN/Creatinine Ratio 21.7; Bilirubin, Total 0.9 mg/dL (0.2-1.0); Total Protein 7.8 g/dL (6.4-8.2)
== END | disposition home or self-care (01) ==
LOC: CHF HDHVI 09:20
PROVIDERS: ATTEND Internal Medicine Cardiovascular Disease
DX: I50.23 Acute on chronic systolic (congestive) heart failure (principal)
CPT/HCPCS: 36415; 80053; 83735; 83880; 85025; 96361; 96365; 96366; G0463; J1250

== ENCOUNTER → 2021-10-23 | Outpatient (CLI) | payer MEDICARE, BC ==
[2021-10-23] VITALS (12 sets, daily range): BP systolic 102–139; BP diastolic 45–74
[~2021-10-23] MED LIST changes: +ALBUMIN 5% 250 ML IV ONE
[2021-10-23 11:37] LABS: Eosinophils # (auto) 0.2 10 ^3/uL (0-0.8); Hemoglobin 10.6 g/dL (13.5-17.5); Lymphocytes % (auto) 34.5 % (10.0-50.0); Monocytes # (auto) 0.5 10 ^3/uL (0-1.3); Neutrophils # (auto) 2.9 10 ^3/uL (1.6-8.6); Nucleated Red Blood Cells % 0.1 %; Red Cell Distribution Width 14.8 % (11.8-14.3); White Blood Cell 5.7 10^3/uL (4.4-10.8)
[2021-10-23 11:39] LABS: Basophils # (auto) 0.1 10 ^3/uL (0-0.2); Eosinophils % (auto) 3.5 % (0.0-7.0); Hematocrit 31.1 % (41.0-53.0); Mean Corpuscular Hemoglobin 33.9 pg (28.0-32.0); Mean Corpuscular Hgb Conc. 34.1 g/dL (32.0-36.0); Mean Corpuscular Volume 99.4 fL (80.0-100.0); Monocytes % (auto) 9.3 % (0.0-12.0); Neutrophils % (auto) 51.7 % (37.0-80.0); Red Blood Cells 3.13 10^6/uL (4.5-5.90)
[2021-10-23 11:46] LABS: Potassium 4.4 mmol/L (3.5-5.1)
== END | disposition home or self-care (01) ==
LOC: CHF HDHVI 07:47
PROVIDERS: ATTEND Internal Medicine Cardiovascular Disease
DX: E88.09 Other disorders of plasma-protein metabolism, not elsewhere classified (principal); I11.0 Hypertensive heart disease with heart failure; I50.23 Acute on chronic systolic (congestive) heart failure; E86.0 Dehydration; E11.9 Type 2 diabetes mellitus without complications; I95.9 Hypotension, unspecified
CPT/HCPCS: 36415; 82565; 83880; 84132; 84520; 85025; 96365; 96366; 96367; G0463; J1250; P9045; 96361

== ENCOUNTER → 2021-10-31 | Outpatient (CLI) | payer MEDICARE, BC ==
[2021-10-31] VITALS (9 sets, daily range): BP systolic 102–120; BP diastolic 37–47
[~2021-10-31] MED LIST changes: -ALBUMIN 5% 250 ML IV ONE; -SODIUM CHLORIDE 0.9% 250 ML IV ONE
[2021-10-31 12:05] LABS: Calcium 8.5 mg/dL (8.5-10.1); Potassium 4.6 mmol/L (3.5-5.1)
[2021-10-31 12:09] LABS: BUN/Creatinine Ratio 24.7; Magnesium 2.7 mg/dL (1.6-2.6)
[2021-10-31 12:12] LABS: Basophils # (auto) 0 10 ^3/uL (0-0.2); Eosinophils # (auto) 0.2 10 ^3/uL (0-0.8); Eosinophils % (auto) 5.1 % (0.0-7.0); Hematocrit 29.5 % (41.0-53.0); Hemoglobin 10.1 g/dL (13.5-17.5); Lymphocytes # (auto) 1.1 10 ^3/uL (0.4-5.4); Lymphocytes % (auto) 21.8 % (10.0-50.0); Mean Corpuscular Hemoglobin 33.8 pg (28.0-32.0); Mean Corpuscular Hgb Conc. 34.2 g/dL (32.0-36.0); Monocytes # (auto) 0.2 10 ^3/uL (0-1.3); Neutrophils # (auto) 3.2 10 ^3/uL (1.6-8.6); Neutrophils % (auto) 67.1 % (37.0-80.0); Red Blood Cells 2.98 10^6/uL (4.5-5.90); Red Cell Distribution Width 14.6 % (11.8-14.3); White Blood Cell 4.8 10^3/uL (4.4-10.8)
== END | disposition home or self-care (01) ==
LOC: CHF HDHVI 08:41
PROVIDERS: ATTEND Internal Medicine Cardiovascular Disease
DX: I11.0 Hypertensive heart disease with heart failure (principal); I43 Cardiomyopathy in diseases classified elsewhere; I25.10 Atherosclerotic heart disease of native coronary artery without angina pectoris; E11.9 Type 2 diabetes mellitus without complications; I50.23 Acute on chronic systolic (congestive) heart failure
CPT/HCPCS: 36415; 80048; 83735; 83880; 85025; 96365; 96366; G0463; J1250

== ENCOUNTER → 2021-11-09 | Outpatient (CLI) | payer MEDICARE, BC ==
[2021-11-09] VITALS (11 sets, daily range): BP systolic 105–124; BP diastolic 40–49
[~2021-11-09] MED LIST changes: +CYANOCOBALAMIN (B-12) 1000 MCG/1 ML VIAL IM ONE; +CYANOCOBALAMIN (B-12) 1000 MCG/1 ML VIAL ONE
[2021-11-09 10:28] LABS: Potassium 4.4 mmol/L (3.5-5.1)
== END | disposition home or self-care (01) ==
LOC: CHF HDHVI 08:38
PROVIDERS: ATTEND Internal Medicine Cardiovascular Disease
DX: I11.0 Hypertensive heart disease with heart failure (principal); I50.23 Acute on chronic systolic (congestive) heart failure; R53.83 Other fatigue; I25.10 Atherosclerotic heart disease of native coronary artery without angina pectoris; I25.5 Ischemic cardiomyopathy; E11.9 Type 2 diabetes mellitus without complications
CPT/HCPCS: 36415; 82565; 83880; 84132; 84520; 96365; 96366; 96372; G0463; J1250; J3420

== ENCOUNTER → 2021-11-15 | Outpatient (CLI) | payer MEDICARE, BC ==
[2021-11-15] VITALS (13 sets, daily range): BP systolic 101–114; BP diastolic 35–46
[~2021-11-15] MED LIST changes: -CYANOCOBALAMIN (B-12) 1000 MCG/1 ML VIAL IM ONE; -CYANOCOBALAMIN (B-12) 1000 MCG/1 ML VIAL ONE; +SODIUM CHLORIDE 0.9% 250 ML IV SCH
[2021-11-15 11:55] LABS: Albumin 3.4 g/dL (3.4-5.0); BUN/Creatinine Ratio 27.1; Potassium 4.4 mmol/L (3.5-5.1)
[2021-11-15 11:58] LABS: Bilirubin, Total 0.4 mg/dL (0.2-1.0); Total Protein 7.6 g/dL (6.4-8.2)
== END | disposition home or self-care (01) ==
LOC: CHF HDHVI 08:02
PROVIDERS: ATTEND Internal Medicine Cardiovascular Disease
DX: I11.0 Hypertensive heart disease with heart failure (principal); I50.23 Acute on chronic systolic (congestive) heart failure; E86.0 Dehydration; E11.9 Type 2 diabetes mellitus without complications; I25.5 Ischemic cardiomyopathy
CPT/HCPCS: 36415; 80053; 83036; 83880; 96361; 96365; 96366; G0463; J1250

== ENCOUNTER → 2021-11-29 | Outpatient (CLI) | payer MEDICARE, BC ==
[2021-11-29] VITALS (11 sets, daily range): BP systolic 107–121; BP diastolic 39–51
[~2021-11-29] MED LIST changes: +SODIUM CHLORIDE 0.9% 250 ML IV ONE; -SODIUM CHLORIDE 0.9% 250 ML IV SCH
[2021-11-29 12:13] LABS: Basophils # (auto) 0 10 ^3/uL (0-0.2); Eosinophils # (auto) 0.2 10 ^3/uL (0-0.8); Hematocrit 29.4 % (41.0-53.0); Hemoglobin 10.4 g/dL (13.5-17.5); Lymphocytes # (auto) 1.2 10 ^3/uL (0.4-5.4); Lymphocytes % (auto) 24.7 % (10.0-50.0); Mean Corpuscular Hemoglobin 33.5 pg (28.0-32.0); Mean Corpuscular Hgb Conc. 35.3 g/dL (32.0-36.0); Mean Corpuscular Volume 95.1 fL (80.0-100.0); Monocytes # (auto) 0.4 10 ^3/uL (0-1.3); Monocytes % (auto) 8.2 % (0.0-12.0); Neutrophils # (auto) 2.9 10 ^3/uL (1.6-8.6); Neutrophils % (auto) 61.1 % (37.0-80.0); Nucleated Red Blood Cells % 0.1 %; Red Cell Distribution Width 13.8 % (11.8-14.3); White Blood Cell 4.7 10^3/uL (4.4-10.8)
[2021-11-29 12:21] LABS: Magnesium 2.1 mg/dL (1.6-2.6); Potassium 4.4 mmol/L (3.5-5.1)
== END | disposition home or self-care (01) ==
LOC: CHF HDHVI 08:07
PROVIDERS: ATTEND Internal Medicine Cardiovascular Disease
DX: I11.0 Hypertensive heart disease with heart failure (principal); I50.23 Acute on chronic systolic (congestive) heart failure; I25.10 Atherosclerotic heart disease of native coronary artery without angina pectoris; I25.5 Ischemic cardiomyopathy; E11.9 Type 2 diabetes mellitus without complications
CPT/HCPCS: 36415; 82565; 83735; 83880; 84132; 84520; 85025; 96365; 96366; G0463; J1250; J7050; 96361

== ENCOUNTER → 2021-12-13 | Outpatient (CLI) | payer MEDICARE, BC ==
[2021-12-13] VITALS (9 sets, daily range): BP systolic 105–126; BP diastolic 44–51
[~2021-12-13] VITALS: Ht 165.1 cm; Wt 64.0 kg
[~2021-12-13] MED LIST changes: +ALBUMIN 5% 250 ML IV ONE; -SODIUM CHLORIDE 0.9% 250 ML IV ONE
[2021-12-13 12:31] LABS: Potassium 4.2 mmol/L (3.5-5.1)
== END | disposition home or self-care (01) ==
LOC: Rad HDHVI 08:14
PROVIDERS: ATTEND Internal Medicine Cardiovascular Disease
DX: I11.0 Hypertensive heart disease with heart failure (principal); I50.23 Acute on chronic systolic (congestive) heart failure; E11.9 Type 2 diabetes mellitus without complications; I25.10 Atherosclerotic heart disease of native coronary artery without angina pectoris; I25.5 Ischemic cardiomyopathy
CPT/HCPCS: 36415; 78472; 82565; 83880; 84132; 84520; 96365; 96366; 96367; 96375; A9505; G0463; J1250; P9045; 96374

== ENCOUNTER → 2021-12-20 | Outpatient (CLI) | payer MEDICARE, BC ==
[~2021-12-20] VITALS: Ht 162.6 cm; Wt 66.0 kg
[2021-12-20] VITALS (9 sets, daily range): BP systolic 99–116; BP diastolic 35–50
[~2021-12-20] MED LIST changes: -ALBUMIN 5% 250 ML IV ONE; +SODIUM CHLORIDE 0.9% 100 ML IV ONE
[2021-12-20 11:36] LABS: BUN/Creatinine Ratio 20.8; Calcium 8.6 mg/dL (8.5-10.1); Magnesium 2.6 mg/dL (1.6-2.6); Potassium 4.3 mmol/L (3.5-5.1)
== END | disposition home or self-care (01) ==
LOC: CHF HDHVI 08:21
PROVIDERS: ATTEND Internal Medicine Cardiovascular Disease
DX: I11.0 Hypertensive heart disease with heart failure (principal); I50.23 Acute on chronic systolic (congestive) heart failure; I25.10 Atherosclerotic heart disease of native coronary artery without angina pectoris; I25.5 Ischemic cardiomyopathy; E11.9 Type 2 diabetes mellitus without complications; R53.83 Other fatigue; E86.0 Dehydration
CPT/HCPCS: 36415; 80048; 83735; 83880; 96365; 96366; G0463; J1250; 96361

== ENCOUNTER → 2021-12-27 | Outpatient (CLI) | payer MEDICARE, BC ==
[2021-12-27] VITALS (11 sets, daily range): BP systolic 112–135; BP diastolic 35–56
[~2021-12-27] MED LIST changes: +BUMETANIDE 2.5mg/10ml (0.25 mg/ml) INJ IV ONE; +BUMETANIDE INJECTION 10 ML ONE; +POTASSIUM CHL 20 Meq TABLET PO ONE; -SODIUM CHLORIDE 0.9% 100 ML IV ONE
[2021-12-27 11:49] LABS: Basophils # (auto) 0 10 ^3/uL (0-0.2); Basophils % (auto) 0.7 % (0.0-2.0); Eosinophils # (auto) 0.2 10 ^3/uL (0-0.8); Eosinophils % (auto) 4.1 % (0.0-7.0); Hematocrit 32.3 % (41.0-53.0); Hemoglobin 10.5 g/dL (13.5-17.5); Lymphocytes # (auto) 1.5 10 ^3/uL (0.4-5.4); Lymphocytes % (auto) 31.9 % (10.0-50.0); Mean Corpuscular Hemoglobin 31.3 pg (28.0-32.0); Mean Corpuscular Hgb Conc. 32.6 g/dL (32.0-36.0); Mean Corpuscular Volume 96.1 fL (80.0-100.0); Monocytes # (auto) 0.3 10 ^3/uL (0-1.3); Monocytes % (auto) 6.8 % (0.0-12.0); Neutrophils # (auto) 2.7 10 ^3/uL (1.6-8.6); Neutrophils % (auto) 56.5 % (37.0-80.0); Nucleated Red Blood Cells % 0.1 %; Red Blood Cells 3.36 10^6/uL (4.5-5.90); Red Cell Distribution Width 14.9 % (11.8-14.3); White Blood Cell 4.8 10^3/uL (4.4-10.8)
[2021-12-27 12:12] LABS: Albumin 3.6 g/dL (3.4-5.0); BUN/Creatinine Ratio 18.3; Bilirubin, Total 0.4 mg/dL (0.2-1.0); Calcium 8.6 mg/dL (8.5-10.1); Magnesium 2.6 mg/dL (1.6-2.6)
== END | disposition home or self-care (01) ==
LOC: CHF HDHVI 08:24
PROVIDERS: ATTEND Internal Medicine Cardiovascular Disease
DX: I11.0 Hypertensive heart disease with heart failure (principal); I50.23 Acute on chronic systolic (congestive) heart failure; I25.10 Atherosclerotic heart disease of native coronary artery without angina pectoris; E11.9 Type 2 diabetes mellitus without complications
CPT/HCPCS: 36415; 80053; 83735; 83880; 85025; 96365; 96366; 96375; G0463; J1250

== ENCOUNTER → 2021-12-29 | Outpatient (CLI) | payer MEDICARE, BC ==
[2021-12-29] VITALS (9 sets, daily range): BP systolic 105–131; BP diastolic 37–48
[~2021-12-29] MED LIST changes: +ALBUMIN 5% 250 ML IV ONE; -BUMETANIDE 2.5mg/10ml (0.25 mg/ml) INJ IV ONE; -BUMETANIDE INJECTION 10 ML ONE; -POTASSIUM CHL 20 Meq TABLET PO ONE; +SODIUM CHLORIDE 0.9% 250 ML IV ONE
== END | disposition home or self-care (01) ==
LOC: CHF HDHVI 08:10
PROVIDERS: ATTEND Internal Medicine Cardiovascular Disease
DX: I11.0 Hypertensive heart disease with heart failure (principal); I50.23 Acute on chronic systolic (congestive) heart failure; I95.9 Hypotension, unspecified; E78.00 Pure hypercholesterolemia, unspecified; E11.9 Type 2 diabetes mellitus without complications; E86.0 Dehydration; I25.10 Atherosclerotic heart disease of native coronary artery without angina pectoris
CPT/HCPCS: 96365; 96366; 96368; G0463; J1250; J7050; P9045; 96367

== ENCOUNTER → 2022-01-03 | Outpatient (CLI) | payer MEDICARE, BC ==
[2022-01-03] VITALS (9 sets, daily range): BP systolic 116–129; BP diastolic 41–50
[~2022-01-03] MED LIST changes: -ALBUMIN 5% 250 ML IV ONE; +CYANOCOBALAMIN (B-12) 1000 MCG/1 ML VIAL IM ONE; +CYANOCOBALAMIN (B-12) 1000 MCG/1 ML VIAL ONE; -SODIUM CHLORIDE 0.9% 250 ML IV ONE
[2022-01-03 11:41] LABS: Potassium 4.9 mmol/L (3.5-5.1)
== END | disposition home or self-care (01) ==
LOC: CHF HDHVI 07:55
PROVIDERS: ATTEND Internal Medicine Cardiovascular Disease
DX: I11.0 Hypertensive heart disease with heart failure (principal); I50.23 Acute on chronic systolic (congestive) heart failure; I25.10 Atherosclerotic heart disease of native coronary artery without angina pectoris; E11.9 Type 2 diabetes mellitus without complications; E78.00 Pure hypercholesterolemia, unspecified
CPT/HCPCS: 36415; 82565; 82607; 83880; 84132; 84520; 96365; 96366; 96372; G0463; J1250; J3420

== ENCOUNTER → 2022-01-05 | Outpatient (CLI) | payer MEDICARE, BC ==
[2022-01-05] VITALS (9 sets, daily range): BP systolic 101–122; BP diastolic 42–76
[~2022-01-05] MED LIST changes: -CYANOCOBALAMIN (B-12) 1000 MCG/1 ML VIAL IM ONE; -CYANOCOBALAMIN (B-12) 1000 MCG/1 ML VIAL ONE
== END | disposition home or self-care (01) ==
LOC: CHF HDHVI 08:15
PROVIDERS: ATTEND Internal Medicine Cardiovascular Disease
DX: I11.0 Hypertensive heart disease with heart failure (principal); I50.23 Acute on chronic systolic (congestive) heart failure; E78.5 Hyperlipidemia, unspecified; I25.10 Atherosclerotic heart disease of native coronary artery without angina pectoris; I25.5 Ischemic cardiomyopathy; E78.00 Pure hypercholesterolemia, unspecified; E11.9 Type 2 diabetes mellitus without complications
CPT/HCPCS: 96365; 96366; G0463; J1250

== ENCOUNTER → 2022-01-10 | Outpatient (CLI) | payer MEDICARE, BC ==
[2022-01-10] VITALS (11 sets, daily range): BP systolic 104–122; BP diastolic 36–49
[2022-01-10 11:34] LABS: Potassium 4.5 mmol/L (3.5-5.1)
[2022-01-10 11:43] LABS: BUN/Creatinine Ratio 23.7; Calcium 8.9 mg/dL (8.5-10.1)
== END | disposition home or self-care (01) ==
LOC: CHF HDHVI 09:10
PROVIDERS: ATTEND Internal Medicine Cardiovascular Disease
DX: I11.0 Hypertensive heart disease with heart failure (principal); I50.23 Acute on chronic systolic (congestive) heart failure; I25.10 Atherosclerotic heart disease of native coronary artery without angina pectoris; I25.5 Ischemic cardiomyopathy; E11.9 Type 2 diabetes mellitus without complications; E78.00 Pure hypercholesterolemia, unspecified; E78.5 Hyperlipidemia, unspecified
CPT/HCPCS: 36415; 80048; 83880; 96365; 96366; G0463; J1250; 96360

== ENCOUNTER → 2022-01-12 | Outpatient (CLI) | payer MEDICARE, BC ==
[2022-01-12] VITALS (9 sets, daily range): BP systolic 94–106; BP diastolic 35–50
[~2022-01-12] MED LIST changes: +SODIUM CHLORIDE 0.9% 250 ML IV ONE
== END | disposition home or self-care (01) ==
LOC: CHF HDHVI 08:26
PROVIDERS: ATTEND Internal Medicine Cardiovascular Disease
DX: I11.0 Hypertensive heart disease with heart failure (principal); I50.23 Acute on chronic systolic (congestive) heart failure; I25.10 Atherosclerotic heart disease of native coronary artery without angina pectoris; I25.5 Ischemic cardiomyopathy; E11.9 Type 2 diabetes mellitus without complications; E78.00 Pure hypercholesterolemia, unspecified; E78.5 Hyperlipidemia, unspecified
CPT/HCPCS: 96365; 96366; G0463; J1250; J7050; 96361

== ENCOUNTER → 2022-01-17 | Outpatient (CLI) | payer MEDICARE, BC ==
[~2022-01-17] VITALS: Ht 162.6 cm; Wt 61.8 kg
[2022-01-17] VITALS (12 sets, daily range): BP systolic 120–140; BP diastolic 45–88
[~2022-01-17] MED LIST changes: -SODIUM CHLORIDE 0.9% 250 ML IV ONE
== END | disposition home or self-care (01) ==
LOC: CHF HDHVI 08:28
PROVIDERS: ATTEND Internal Medicine Cardiovascular Disease
DX: I11.0 Hypertensive heart disease with heart failure (principal); I50.23 Acute on chronic systolic (congestive) heart failure; I42.0 Dilated cardiomyopathy; I25.10 Atherosclerotic heart disease of native coronary artery without angina pectoris; E78.5 Hyperlipidemia, unspecified; E78.00 Pure hypercholesterolemia, unspecified
CPT/HCPCS: 36415; 82565; 84520; 96365; 96366; G0463; J1250

== ENCOUNTER → 2022-01-24 | Outpatient (CLI) | payer MEDICARE, BC ==
[2022-01-24] VITALS (9 sets, daily range): BP systolic 104–139; BP diastolic 37–51
[~2022-01-24] VITALS: Ht 30.5 cm; Wt 61.2 kg
[2022-01-24 11:47] LABS: BUN/Creatinine Ratio 27.3; Calcium 8.8 mg/dL (8.5-10.1); Magnesium 2.2 mg/dL (1.6-2.6); Potassium 4.6 mmol/L (3.5-5.1)
== END | disposition home or self-care (01) ==
LOC: CHF HDHVI 08:08
PROVIDERS: ATTEND Internal Medicine Cardiovascular Disease
DX: I11.0 Hypertensive heart disease with heart failure (principal); I50.23 Acute on chronic systolic (congestive) heart failure; I25.10 Atherosclerotic heart disease of native coronary artery without angina pectoris; E78.5 Hyperlipidemia, unspecified; E11.9 Type 2 diabetes mellitus without complications; E78.00 Pure hypercholesterolemia, unspecified
CPT/HCPCS: 36415; 80048; 83735; 83880; 96365; 96366; G0463; J1250

== ENCOUNTER → 2022-01-26 | Outpatient (CLI) | payer MEDICARE, BC ==
[2022-01-26] VITALS (9 sets, daily range): BP systolic 94–117; BP diastolic 31–61
[~2022-01-26] MED LIST changes: +CYANOCOBALAMIN (B-12) 1000 MCG/1 ML VIAL IM ONE; +CYANOCOBALAMIN (B-12) 1000 MCG/1 ML VIAL ONE; +SODIUM CHLORIDE 0.9% 150 ML IV ONE
== END | disposition home or self-care (01) ==
LOC: CHF HDHVI 07:54
PROVIDERS: ATTEND Internal Medicine Cardiovascular Disease
DX: I25.5 Ischemic cardiomyopathy (principal); I11.0 Hypertensive heart disease with heart failure; I50.23 Acute on chronic systolic (congestive) heart failure; I25.10 Atherosclerotic heart disease of native coronary artery without angina pectoris; E78.5 Hyperlipidemia, unspecified; E11.9 Type 2 diabetes mellitus without complications; E78.00 Pure hypercholesterolemia, unspecified
CPT/HCPCS: 96365; 96366; 96372; G0463; J1250; J3420; 96361

== ENCOUNTER → 2022-01-30 | Outpatient (CLI) | payer MEDICARE, BC ==
[2022-01-30] VITALS (9 sets, daily range): BP systolic 85–120; BP diastolic 33–50
[~2022-01-30] MED LIST changes: +ALBUMIN 25% 100 ML IV ONE; +ALBUMIN 25% 50 ML IV ONE; -CYANOCOBALAMIN (B-12) 1000 MCG/1 ML VIAL IM ONE; -CYANOCOBALAMIN (B-12) 1000 MCG/1 ML VIAL ONE; -SODIUM CHLORIDE 0.9% 150 ML IV ONE; +SODIUM CHLORIDE 0.9% 250 ML IV ONE
[2022-01-30 12:22] LABS: Potassium 4.7 mmol/L (3.5-5.1)
[2022-01-30 12:31] LABS: Albumin 4.1 g/dL (3.4-5.0); BUN/Creatinine Ratio 17.9; Bilirubin, Total 0.9 mg/dL (0.2-1.0); Calcium 9.1 mg/dL (8.5-10.1); Total Protein 8.6 g/dL (6.4-8.2)
== END | disposition home or self-care (01) ==
LOC: CHF HDHVI 08:12
PROVIDERS: ATTEND Internal Medicine Cardiovascular Disease
DX: I11.0 Hypertensive heart disease with heart failure (principal); I50.43 Acute on chronic combined systolic (congestive) and diastolic (congestive) heart failure; I25.10 Atherosclerotic heart disease of native coronary artery without angina pectoris; E78.5 Hyperlipidemia, unspecified; E78.00 Pure hypercholesterolemia, unspecified; E11.9 Type 2 diabetes mellitus without complications; I42.0 Dilated cardiomyopathy
CPT/HCPCS: 36415; 80053; 83880; 96365; 96366; 96368; G0463; J1250; J7050; P9047

== ENCOUNTER → 2022-02-01 | Outpatient (CLI) | payer MEDICARE, BC ==
[~2022-02-01] VITALS: Ht 165.1 cm; Wt 60.9 kg
[2022-02-01] VITALS (11 sets, daily range): BP systolic 94–117; BP diastolic 33–47
[~2022-02-01] MED LIST changes: -ALBUMIN 25% 100 ML IV ONE; -ALBUMIN 25% 50 ML IV ONE
[2022-02-01 09:30] LABS: Potassium 3.9 mmol/L (3.5-5.1)
== END | disposition home or self-care (01) ==
LOC: CHF HDHVI 08:07
PROVIDERS: ATTEND Internal Medicine Cardiovascular Disease
DX: I11.0 Hypertensive heart disease with heart failure (principal); I50.43 Acute on chronic combined systolic (congestive) and diastolic (congestive) heart failure; I42.0 Dilated cardiomyopathy; I25.10 Atherosclerotic heart disease of native coronary artery without angina pectoris; E78.5 Hyperlipidemia, unspecified; E78.00 Pure hypercholesterolemia, unspecified; E11.9 Type 2 diabetes mellitus without complications
CPT/HCPCS: 36415; 82565; 83880; 84132; 84520; 96365; 96366; G0463; J1250; J7050

== ENCOUNTER → 2022-02-06 | Outpatient (CLI) | payer MEDICARE, BC ==
[2022-02-06] VITALS (11 sets, daily range): BP systolic 104–130; BP diastolic 40–104
[~2022-02-06] MED LIST changes: -DOBUTamine 1000MCG/ML 250 ML IV ONE; +MILRINONE 20MG/100ML 100 ML IV ONE; -SODIUM CHLORIDE 0.9% 250 ML IV ONE
[2022-02-06 11:31] LABS: Calcium 8.7 mg/dL (8.5-10.1); Magnesium 2.2 mg/dL (1.6-2.6); Potassium 4.3 mmol/L (3.5-5.1)
[2022-02-06 11:33] LABS: BUN/Creatinine Ratio 18.3
== END | disposition home or self-care (01) ==
LOC: CHF HDHVI 08:24
PROVIDERS: ATTEND Internal Medicine Cardiovascular Disease
DX: I11.0 Hypertensive heart disease with heart failure (principal); I50.43 Acute on chronic combined systolic (congestive) and diastolic (congestive) heart failure; I42.0 Dilated cardiomyopathy; I25.10 Atherosclerotic heart disease of native coronary artery without angina pectoris; E78.5 Hyperlipidemia, unspecified; E78.00 Pure hypercholesterolemia, unspecified
CPT/HCPCS: 36415; 80048; 83735; 83880; 96365; 96366; G0463; J2260

== ENCOUNTER → 2022-02-08 | Outpatient (CLI) | payer MEDICARE, BC ==
[2022-02-08] VITALS (12 sets, daily range): BP systolic 106–124; BP diastolic 44–72
[~2022-02-08] VITALS: Ht 162.6 cm; Wt 61.3 kg
== END | disposition home or self-care (01) ==
LOC: CHF HDHVI 11:10
PROVIDERS: ATTEND Internal Medicine Cardiovascular Disease
DX: I11.0 Hypertensive heart disease with heart failure (principal); I50.43 Acute on chronic combined systolic (congestive) and diastolic (congestive) heart failure; I42.0 Dilated cardiomyopathy; I25.10 Atherosclerotic heart disease of native coronary artery without angina pectoris; E78.5 Hyperlipidemia, unspecified; E78.00 Pure hypercholesterolemia, unspecified
CPT/HCPCS: 96365; 96366; G0463; J2260

== ENCOUNTER → 2022-02-12 | Outpatient (CLI) | payer MEDICARE, BC ==
[~2022-02-12] VITALS: Ht 162.6 cm; Wt 60.8 kg
[2022-02-12] VITALS (12 sets, daily range): BP systolic 93–120; BP diastolic 37–69
[2022-02-12 10:21] LABS: Basophils # (auto) 0 10 ^3/uL (0-0.2); Basophils % (auto) 0.8 % (0.0-2.0); Eosinophils # (auto) 0.2 10 ^3/uL (0-0.8); Eosinophils % (auto) 5.3 % (0.0-7.0); Hematocrit 29.8 % (41.0-53.0); Hemoglobin 10.2 g/dL (13.5-17.5); Lymphocytes # (auto) 1.2 10 ^3/uL (0.4-5.4); Lymphocytes % (auto) 27.8 % (10.0-50.0); Mean Corpuscular Hemoglobin 32.1 pg (28.0-32.0); Mean Corpuscular Hgb Conc. 34.3 g/dL (32.0-36.0); Mean Corpuscular Volume 93.6 fL (80.0-100.0); Monocytes # (auto) 0.3 10 ^3/uL (0-1.3); Monocytes % (auto) 7.6 % (0.0-12.0); Neutrophils # (auto) 2.6 10 ^3/uL (1.6-8.6); Neutrophils % (auto) 58.5 % (37.0-80.0); Nucleated Red Blood Cells % 0.2 %; Red Blood Cells 3.18 10^6/uL (4.5-5.90); Red Cell Distribution Width 14.9 % (11.8-14.3); White Blood Cell 4.5 10^3/uL (4.4-10.8)
[2022-02-12 10:26] LABS: Albumin 3.7 g/dL (3.4-5.0); Calcium 8.7 mg/dL (8.5-10.1); Magnesium 2.2 mg/dL (1.6-2.6)
[2022-02-12 10:30] LABS: BUN/Creatinine Ratio 24.4; Bilirubin, Total 0.4 mg/dL (0.2-1.0)
== END | disposition home or self-care (01) ==
LOC: CHF HDHVI 08:25
PROVIDERS: ATTEND Internal Medicine Cardiovascular Disease
DX: I11.0 Hypertensive heart disease with heart failure (principal); I50.43 Acute on chronic combined systolic (congestive) and diastolic (congestive) heart failure; I25.10 Atherosclerotic heart disease of native coronary artery without angina pectoris; E78.5 Hyperlipidemia, unspecified; E11.9 Type 2 diabetes mellitus without complications; E78.00 Pure hypercholesterolemia, unspecified
CPT/HCPCS: 36415; 80053; 83735; 83880; 85025; 96365; 96366; G0463; J2260

== ENCOUNTER → 2022-02-22 | Outpatient (CLI) | payer MEDICARE, BC ==
[~2022-02-22] VITALS: Ht 165.1 cm; Wt 58.1 kg
[2022-02-22] VITALS (11 sets, daily range): BP systolic 86–118; BP diastolic 38–55
[~2022-02-22] MED LIST changes: +ALBUMIN 25% 100 ML IV ONE; +BACITRACIN TOP OINT 1 UD PKG TOP ONE
[2022-02-22 16:50] LABS: Free T3 2.25 pg/mL (2.3-4.2); Free T4 (Free Thyroxine) 1.18 ng/dL (0.89-1.76); T3 Total 0.84 ng/mL (0.60-1.81)
== END | disposition home or self-care (01) ==
LOC: CHF HDHVI 10:58
PROVIDERS: ATTEND Internal Medicine Cardiovascular Disease
DX: I11.0 Hypertensive heart disease with heart failure (principal); I50.43 Acute on chronic combined systolic (congestive) and diastolic (congestive) heart failure; I42.0 Dilated cardiomyopathy; S51.002A Unspecified open wound of left elbow, initial encounter; E11.9 Type 2 diabetes mellitus without complications; E78.5 Hyperlipidemia, unspecified; E78.00 Pure hypercholesterolemia, unspecified; X58.XXXA Exposure to other specified factors, initial encounter; Y93.89 Activity, other specified; Y92.89 Other specified places as the place of occurrence of the external cause; Y99.8 Other external cause status
CPT/HCPCS: 36415; 84439; 84443; 84480; 84481; 96365; 96366; 96367; G0463; J2260; P9047

== ENCOUNTER → 2022-02-27 | Outpatient (CLI) | payer MEDICARE, BC ==
[2022-02-27] VITALS (11 sets, daily range): BP systolic 96–132; BP diastolic 36–54
[~2022-02-27] MED LIST changes: -ALBUMIN 25% 100 ML IV ONE; -BACITRACIN TOP OINT 1 UD PKG TOP ONE
[2022-02-27 16:35] LABS: Albumin 3.8 g/dL (3.4-5.0); Calcium 8.6 mg/dL (8.5-10.1); Magnesium 2.3 mg/dL (1.6-2.6); Potassium 4.1 mmol/L (3.5-5.1)
[2022-02-27 16:38] LABS: BUN/Creatinine Ratio 24.8; Bilirubin, Total 0.3 mg/dL (0.2-1.0); Total Protein 7.6 g/dL (6.4-8.2)
[2022-02-27 16:53] LABS: Basophils # (auto) 0 10 ^3/uL (0-0.2); Basophils % (auto) 0.8 % (0.0-2.0); Eosinophils # (auto) 0.1 10 ^3/uL (0-0.8); Hematocrit 28.8 % (41.0-53.0); Hemoglobin 9.5 g/dL (13.5-17.5); Mean Corpuscular Hemoglobin 31.2 pg (28.0-32.0); Mean Corpuscular Hgb Conc. 32.8 g/dL (32.0-36.0); Mean Corpuscular Volume 95.2 fL (80.0-100.0); Monocytes # (auto) 0.3 10 ^3/uL (0-1.3); Monocytes % (auto) 6.2 % (0.0-12.0); Nucleated Red Blood Cells % 0.1 %; Red Blood Cells 3.03 10^6/uL (4.5-5.90); Red Cell Distribution Width 15.6 % (11.8-14.3); White Blood Cell 4.6 10^3/uL (4.4-10.8)
== END | disposition home or self-care (01) ==
LOC: CHF HDHVI 10:51
PROVIDERS: ATTEND Internal Medicine Cardiovascular Disease
DX: I11.0 Hypertensive heart disease with heart failure (principal); I50.43 Acute on chronic combined systolic (congestive) and diastolic (congestive) heart failure; I25.10 Atherosclerotic heart disease of native coronary artery without angina pectoris; E11.9 Type 2 diabetes mellitus without complications; E78.5 Hyperlipidemia, unspecified; E78.00 Pure hypercholesterolemia, unspecified; I95.9 Hypotension, unspecified
CPT/HCPCS: 36415; 80053; 83735; 83880; 85025; 96365; 96366; G0463; J2260

== ENCOUNTER → 2022-03-01 | Outpatient (CLI) | payer MEDICARE, BC ==
[2022-03-01] VITALS (11 sets, daily range): BP systolic 97–112; BP diastolic 39–55
== END | disposition home or self-care (01) ==
LOC: CHF HDHVI 10:08
PROVIDERS: ATTEND Internal Medicine Cardiovascular Disease
DX: I11.0 Hypertensive heart disease with heart failure (principal); I50.43 Acute on chronic combined systolic (congestive) and diastolic (congestive) heart failure; I25.5 Ischemic cardiomyopathy; I95.9 Hypotension, unspecified; I25.10 Atherosclerotic heart disease of native coronary artery without angina pectoris; E78.5 Hyperlipidemia, unspecified; E78.00 Pure hypercholesterolemia, unspecified; E11.9 Type 2 diabetes mellitus without complications
CPT/HCPCS: 96365; 96366; G0463; J2260

== ENCOUNTER → 2022-03-08 | Outpatient (CLI) | payer MEDICARE, BC ==
[2022-03-08] VITALS (13 sets, daily range): BP systolic 77–104; BP diastolic 34–53
[~2022-03-08] MED LIST changes: +ALBUMIN 25% 50 ML IV ONE; +SODIUM CHLORIDE 0.9% 100 ML IV ONE
== END | disposition home or self-care (01) ==
LOC: CHF HDHVI 11:08
PROVIDERS: ATTEND Internal Medicine Cardiovascular Disease
DX: I13.0 Hypertensive heart and chronic kidney disease with heart failure and stage 1 through stage 4 chronic kidney disease, or unspecified chronic kidney disease (principal); E11.22 Type 2 diabetes mellitus with diabetic chronic kidney disease; N18.30 Chronic kidney disease, stage 3 unspecified; I50.43 Acute on chronic combined systolic (congestive) and diastolic (congestive) heart failure; I25.5 Ischemic cardiomyopathy; I25.10 Atherosclerotic heart disease of native coronary artery without angina pectoris; E78.5 Hyperlipidemia, unspecified; E78.00 Pure hypercholesterolemia, unspecified
CPT/HCPCS: 96365; 96366; 96367; G0463; J2260; P9047; 96360

== ENCOUNTER → 2022-03-13 | Outpatient (CLI) | payer MEDICARE, BC ==
[~2022-03-13] MED LIST changes: +ALBUMIN 25% 100 ML IV ONE; -ALBUMIN 25% 50 ML IV ONE; -SODIUM CHLORIDE 0.9% 100 ML IV ONE
[2022-03-13 11:04] VITALS: BP 89/36
[2022-03-13 12:15] VITALS: BP 86/31
[2022-03-13 12:45] VITALS: BP 91/35
[2022-03-13 12:51] LABS: Calcium 8.6 mg/dL (8.5-10.1); Potassium 4.2 mmol/L (3.5-5.1)
[2022-03-13 12:53] LABS: BUN/Creatinine Ratio 22.3
[2022-03-13 13:27] VITALS: BP 96/38
== END | disposition home or self-care (01) ==
LOC: CHF HDHVI 10:55
PROVIDERS: ATTEND Internal Medicine Cardiovascular Disease
DX: I13.0 Hypertensive heart and chronic kidney disease with heart failure and stage 1 through stage 4 chronic kidney disease, or unspecified chronic kidney disease (principal); E11.22 Type 2 diabetes mellitus with diabetic chronic kidney disease; N18.30 Chronic kidney disease, stage 3 unspecified; I50.43 Acute on chronic combined systolic (congestive) and diastolic (congestive) heart failure; I25.5 Ischemic cardiomyopathy; I25.10 Atherosclerotic heart disease of native coronary artery without angina pectoris; E78.5 Hyperlipidemia, unspecified; E78.00 Pure hypercholesterolemia, unspecified; E11.21 Type 2 diabetes mellitus with diabetic nephropathy; Z95.0 Presence of cardiac pacemaker
CPT/HCPCS: 36415; 80048; 83880; 96365; G0463; J2260; P9047; 96366; 96367

== ENCOUNTER → 2022-03-15 | Outpatient (CLI) | payer MEDICARE, BC ==
[2022-03-15] VITALS (11 sets, daily range): BP systolic 86–118; BP diastolic 34–53
== END | disposition home or self-care (01) ==
LOC: CHF HDHVI 10:36
PROVIDERS: ATTEND Internal Medicine Cardiovascular Disease
DX: I95.9 Hypotension, unspecified (principal); I13.0 Hypertensive heart and chronic kidney disease with heart failure and stage 1 through stage 4 chronic kidney disease, or unspecified chronic kidney disease; E11.22 Type 2 diabetes mellitus with diabetic chronic kidney disease; N18.30 Chronic kidney disease, stage 3 unspecified; I50.43 Acute on chronic combined systolic (congestive) and diastolic (congestive) heart failure; I25.10 Atherosclerotic heart disease of native coronary artery without angina pectoris; E78.5 Hyperlipidemia, unspecified; E78.00 Pure hypercholesterolemia, unspecified
CPT/HCPCS: 96365; 96366; 96368; G0463; J2260; P9047; 96367

== ENCOUNTER → 2022-03-20 | Outpatient (CLI) | payer MEDICARE, BC ==
[2022-03-20] VITALS (9 sets, daily range): BP systolic 94–126; BP diastolic 33–50
[~2022-03-20] MED LIST changes: -ALBUMIN 25% 100 ML IV ONE; +CYANOCOBALAMIN (B-12) 1000 MCG/1 ML VIAL IM ONE; +CYANOCOBALAMIN (B-12) 1000 MCG/1 ML VIAL ONE; +DOBUTamine 1000MCG/ML 250 ML IV ONE; -MILRINONE 20MG/100ML 100 ML IV ONE
[2022-03-20 13:45] LABS: Potassium 4.6 mmol/L (3.5-5.1)
[2022-03-20 13:56] LABS: Albumin 4.1 g/dL (3.4-5.0); BUN/Creatinine Ratio 26.5; Calcium 8.7 mg/dL (8.5-10.1); Magnesium 2.3 mg/dL (1.6-2.6); Total Protein 7.8 g/dL (6.4-8.2)
== END | disposition home or self-care (01) ==
LOC: CHF HDHVI 11:06
PROVIDERS: ATTEND Internal Medicine Cardiovascular Disease
DX: I13.0 Hypertensive heart and chronic kidney disease with heart failure and stage 1 through stage 4 chronic kidney disease, or unspecified chronic kidney disease (principal); E11.22 Type 2 diabetes mellitus with diabetic chronic kidney disease; N18.30 Chronic kidney disease, stage 3 unspecified; I50.43 Acute on chronic combined systolic (congestive) and diastolic (congestive) heart failure; I25.10 Atherosclerotic heart disease of native coronary artery without angina pectoris; E78.5 Hyperlipidemia, unspecified; E78.00 Pure hypercholesterolemia, unspecified
CPT/HCPCS: 36415; 80053; 83735; 83880; 96365; 96366; 96372; G0463; J1250; J3420

== ENCOUNTER → 2022-03-27 | Outpatient (CLI) | payer MEDICARE, BC ==
[2022-03-27] VITALS (10 sets, daily range): BP systolic 95–111; BP diastolic 31–39
[~2022-03-27] MED LIST changes: -CYANOCOBALAMIN (B-12) 1000 MCG/1 ML VIAL IM ONE; -CYANOCOBALAMIN (B-12) 1000 MCG/1 ML VIAL ONE; +MILRINONE 20MG/100ML 100 ML IV ONE
[2022-03-27 12:43] LABS: Basophils # (auto) 0 10 ^3/uL (0-0.2); Basophils % (auto) 1.2 % (0.0-2.0); Eosinophils # (auto) 0.1 10 ^3/uL (0-0.8); Eosinophils % (auto) 3.3 % (0.0-7.0); Hematocrit 30.3 % (41.0-53.0); Hemoglobin 9.9 g/dL (13.5-17.5); Lymphocytes # (auto) 0.8 10 ^3/uL (0.4-5.4); Lymphocytes % (auto) 21.6 % (10.0-50.0); Mean Corpuscular Hemoglobin 31.5 pg (28.0-32.0); Mean Corpuscular Hgb Conc. 32.8 g/dL (32.0-36.0); Mean Corpuscular Volume 96.1 fL (80.0-100.0); Monocytes # (auto) 0.3 10 ^3/uL (0-1.3); Monocytes % (auto) 7.3 % (0.0-12.0); Neutrophils # (auto) 2.3 10 ^3/uL (1.6-8.6); Neutrophils % (auto) 66.6 % (37.0-80.0); Nucleated Red Blood Cells % 0.1 %; Red Blood Cells 3.16 10^6/uL (4.5-5.90); White Blood Cell 3.5 10^3/uL (4.4-10.8)
[2022-03-27 13:01] LABS: BUN/Creatinine Ratio 24.5; Calcium 8.5 mg/dL (8.5-10.1); Potassium 4.4 mmol/L (3.5-5.1)
== END | disposition home or self-care (01) ==
LOC: CHF HDHVI 11:09
PROVIDERS: ATTEND Internal Medicine Cardiovascular Disease
DX: I13.0 Hypertensive heart and chronic kidney disease with heart failure and stage 1 through stage 4 chronic kidney disease, or unspecified chronic kidney disease (principal); E11.22 Type 2 diabetes mellitus with diabetic chronic kidney disease; N18.30 Chronic kidney disease, stage 3 unspecified; I50.43 Acute on chronic combined systolic (congestive) and diastolic (congestive) heart failure; I25.10 Atherosclerotic heart disease of native coronary artery without angina pectoris; E78.5 Hyperlipidemia, unspecified; E78.00 Pure hypercholesterolemia, unspecified
CPT/HCPCS: 36415; 80048; 83880; 85025; 96365; 96366; G0463; J1250

== ENCOUNTER → 2022-03-29 | Outpatient (CLI) | payer MEDICARE, BC ==
[~2022-03-29] MED LIST changes: +ALBUMIN 25% 100 ML IV ONE; -DOBUTamine 1000MCG/ML 250 ML IV ONE; -MILRINONE 20MG/100ML 100 ML IV ONE; +SODIUM CHLORIDE 0.9% 300 ML IV ONE
[2022-03-29 11:30] VITALS: BP 79/27
[2022-03-29 12:10] VITALS: BP 87/30
[2022-03-29 12:53] VITALS: BP 87/34
[2022-03-29 13:30] VITALS: BP 100/44
[2022-03-29 14:16] VITALS: BP 100/44
== END | disposition home or self-care (01) ==
LOC: CHF HDHVI 10:58
PROVIDERS: ATTEND Internal Medicine Cardiovascular Disease
DX: I13.0 Hypertensive heart and chronic kidney disease with heart failure and stage 1 through stage 4 chronic kidney disease, or unspecified chronic kidney disease (principal); E11.22 Type 2 diabetes mellitus with diabetic chronic kidney disease; N18.30 Chronic kidney disease, stage 3 unspecified; I50.43 Acute on chronic combined systolic (congestive) and diastolic (congestive) heart failure; I25.5 Ischemic cardiomyopathy; I95.9 Hypotension, unspecified; I25.10 Atherosclerotic heart disease of native coronary artery without angina pectoris; E78.5 Hyperlipidemia, unspecified; E78.00 Pure hypercholesterolemia, unspecified
CPT/HCPCS: 96361; 96365; 96366; G0463; J7040; P9047

== ENCOUNTER → 2022-04-10 | Outpatient (CLI) | payer MEDICARE, BC ==
[2022-04-10] VITALS (9 sets, daily range): BP systolic 105–118; BP diastolic 52–58
[~2022-04-10] MED LIST changes: -ALBUMIN 25% 100 ML IV ONE; +DOBUTamine 1000MCG/ML 250 ML IV ONE; -SODIUM CHLORIDE 0.9% 300 ML IV ONE
[2022-04-10 12:52] LABS: Calcium 8.9 mg/dL (8.5-10.1); Potassium 4.4 mmol/L (3.5-5.1)
[2022-04-10 12:55] LABS: BUN/Creatinine Ratio 23.8; Magnesium 2.5 mg/dL (1.6-2.6)
== END | disposition home or self-care (01) ==
LOC: CHF HDHVI 10:58
PROVIDERS: ATTEND Internal Medicine Cardiovascular Disease
DX: I13.0 Hypertensive heart and chronic kidney disease with heart failure and stage 1 through stage 4 chronic kidney disease, or unspecified chronic kidney disease (principal); E11.22 Type 2 diabetes mellitus with diabetic chronic kidney disease; N18.30 Chronic kidney disease, stage 3 unspecified; I50.43 Acute on chronic combined systolic (congestive) and diastolic (congestive) heart failure; I25.10 Atherosclerotic heart disease of native coronary artery without angina pectoris; E78.5 Hyperlipidemia, unspecified; E78.00 Pure hypercholesterolemia, unspecified; E11.21 Type 2 diabetes mellitus with diabetic nephropathy; I25.5 Ischemic cardiomyopathy
CPT/HCPCS: 36415; 80048; 83735; 83880; 96365; 96366; G0463; J1250

== ENCOUNTER → 2022-04-12 | Outpatient (CLI) | payer MEDICARE, BC ==
[2022-04-12] VITALS (9 sets, daily range): BP systolic 97–108; BP diastolic 44–50
== END | disposition home or self-care (01) ==
LOC: CHF HDHVI 10:59
PROVIDERS: ATTEND Internal Medicine Cardiovascular Disease
DX: I13.0 Hypertensive heart and chronic kidney disease with heart failure and stage 1 through stage 4 chronic kidney disease, or unspecified chronic kidney disease (principal); E11.22 Type 2 diabetes mellitus with diabetic chronic kidney disease; N18.30 Chronic kidney disease, stage 3 unspecified; I50.43 Acute on chronic combined systolic (congestive) and diastolic (congestive) heart failure; I25.10 Atherosclerotic heart disease of native coronary artery without angina pectoris; E78.5 Hyperlipidemia, unspecified; E78.00 Pure hypercholesterolemia, unspecified; E11.21 Type 2 diabetes mellitus with diabetic nephropathy; I25.5 Ischemic cardiomyopathy
CPT/HCPCS: 96365; 96366; G0463; J1250

== ENCOUNTER → 2022-04-17 | Outpatient (CLI) | payer MEDICARE, BC ==
[2022-04-17] VITALS (9 sets, daily range): BP systolic 103–120; BP diastolic 54–58
[2022-04-17 12:16] LABS: Potassium 4.2 mmol/L (3.5-5.1)
== END | disposition home or self-care (01) ==
LOC: CHF HDHVI 10:51
PROVIDERS: ATTEND Internal Medicine Cardiovascular Disease
DX: I13.0 Hypertensive heart and chronic kidney disease with heart failure and stage 1 through stage 4 chronic kidney disease, or unspecified chronic kidney disease (principal); E11.22 Type 2 diabetes mellitus with diabetic chronic kidney disease; N18.30 Chronic kidney disease, stage 3 unspecified; I50.43 Acute on chronic combined systolic (congestive) and diastolic (congestive) heart failure; I25.10 Atherosclerotic heart disease of native coronary artery without angina pectoris; E78.5 Hyperlipidemia, unspecified; E78.00 Pure hypercholesterolemia, unspecified; E11.21 Type 2 diabetes mellitus with diabetic nephropathy
CPT/HCPCS: 36415; 82565; 83880; 84132; 84520; 96365; 96366; G0463; J1250

== ENCOUNTER → 2022-04-24 | Outpatient (CLI) | payer MEDICARE, BC ==
[2022-04-24] VITALS (10 sets, daily range): BP systolic 99–139; BP diastolic 36–52
[~2022-04-24] MED LIST changes: +BUMETANIDE 1mg/4ml VIAL (0.25mg/ml) ONE; +BUMETANIDE 2.5mg/10ml (0.25 mg/ml) INJ IV ONE; +POTASSIUM CHL 10 Meq TABLET PO ONE; +POTASSIUM CHL 20 Meq TABLET PO ONE; +metOLazone 5 MG TAB ONE; +metOLazone 5 MG TAB PO ONE
[2022-04-24 16:10] LABS: Basophils # (auto) 0 10 ^3/uL (0-0.2); Basophils % (auto) 1.1 % (0.0-2.0); Eosinophils # (auto) 0.1 10 ^3/uL (0-0.8); Eosinophils % (auto) 2.1 % (0.0-7.0); Hematocrit 27.4 % (41.0-53.0); Hemoglobin 9.3 g/dL (13.5-17.5); Lymphocytes # (auto) 1.3 10 ^3/uL (0.4-5.4); Lymphocytes % (auto) 32.7 % (10.0-50.0); Mean Corpuscular Hemoglobin 32.6 pg (28.0-32.0); Mean Corpuscular Hgb Conc. 33.9 g/dL (32.0-36.0); Mean Corpuscular Volume 96.2 fL (80.0-100.0); Monocytes # (auto) 0.3 10 ^3/uL (0-1.3); Monocytes % (auto) 6.6 % (0.0-12.0); Neutrophils # (auto) 2.3 10 ^3/uL (1.6-8.6); Neutrophils % (auto) 57.5 % (37.0-80.0); Nucleated Red Blood Cells % 0.1 %; Red Blood Cells 2.85 10^6/uL (4.5-5.90); Red Cell Distribution Width 15.5 % (11.8-14.3); White Blood Cell 3.9 10^3/uL (4.4-10.8)
[2022-04-24 16:22] LABS: BUN/Creatinine Ratio 27.2; Calcium 8.2 mg/dL (8.5-10.1); Potassium 4.8 mmol/L (3.5-5.1)
== END | disposition home or self-care (01) ==
LOC: CHF HDHVI 11:05
PROVIDERS: ATTEND Internal Medicine Cardiovascular Disease
DX: I13.0 Hypertensive heart and chronic kidney disease with heart failure and stage 1 through stage 4 chronic kidney disease, or unspecified chronic kidney disease (principal); E11.22 Type 2 diabetes mellitus with diabetic chronic kidney disease; N18.30 Chronic kidney disease, stage 3 unspecified; I50.23 Acute on chronic systolic (congestive) heart failure; I25.10 Atherosclerotic heart disease of native coronary artery without angina pectoris; E78.5 Hyperlipidemia, unspecified; E78.00 Pure hypercholesterolemia, unspecified; E11.21 Type 2 diabetes mellitus with diabetic nephropathy
CPT/HCPCS: 36415; 80048; 83880; 85025; 96365; 96366; 96375; G0463; J1250; J3490

== ENCOUNTER → 2022-04-26 | Outpatient (CLI) | payer MEDICARE, BC ==
[2022-04-26] VITALS (14 sets, daily range): BP systolic 88–115; BP diastolic 34–45
[~2022-04-26] VITALS: Ht 30.5 cm; Wt 59.6 kg
[~2022-04-26] MED LIST changes: +ALBUMIN 25% 100 ML IV ONE; +ALBUMIN 5% 50 ML IV ONE; -BUMETANIDE 1mg/4ml VIAL (0.25mg/ml) ONE; -BUMETANIDE 2.5mg/10ml (0.25 mg/ml) INJ IV ONE; -POTASSIUM CHL 10 Meq TABLET PO ONE; -POTASSIUM CHL 20 Meq TABLET PO ONE; +SODIUM CHLORIDE 0.9% 100 ML IV ONE; -metOLazone 5 MG TAB ONE; -metOLazone 5 MG TAB PO ONE
[2022-04-26 12:12] LABS: BUN/Creatinine Ratio 26.3; Calcium 8.8 mg/dL (8.5-10.1); Magnesium 2.6 mg/dL (1.6-2.6)
== END | disposition home or self-care (01) ==
LOC: CHF HDHVI 10:54
PROVIDERS: ATTEND Internal Medicine Cardiovascular Disease
DX: I13.0 Hypertensive heart and chronic kidney disease with heart failure and stage 1 through stage 4 chronic kidney disease, or unspecified chronic kidney disease (principal); E11.22 Type 2 diabetes mellitus with diabetic chronic kidney disease; N18.30 Chronic kidney disease, stage 3 unspecified; I50.43 Acute on chronic combined systolic (congestive) and diastolic (congestive) heart failure; I25.5 Ischemic cardiomyopathy; E11.21 Type 2 diabetes mellitus with diabetic nephropathy; I25.10 Atherosclerotic heart disease of native coronary artery without angina pectoris; E78.5 Hyperlipidemia, unspecified; E78.00 Pure hypercholesterolemia, unspecified
CPT/HCPCS: 36415; 80048; 83735; 83880; 96361; 96365; 96366; G0463; P9047; 96360

== ENCOUNTER → 2022-05-01 | Outpatient (CLI) | payer MEDICARE, BC ==
[2022-05-01] VITALS (10 sets, daily range): BP systolic 99–119; BP diastolic 41–52
[~2022-05-01] MED LIST changes: -ALBUMIN 25% 100 ML IV ONE; -ALBUMIN 5% 50 ML IV ONE; -SODIUM CHLORIDE 0.9% 100 ML IV ONE
[2022-05-01 16:42] LABS: Albumin 3.9 g/dL (3.4-5.0); Calcium 8.8 mg/dL (8.5-10.1); Magnesium 2.9 mg/dL (1.6-2.6); Potassium 4.4 mmol/L (3.5-5.1)
[2022-05-01 16:46] LABS: BUN/Creatinine Ratio 31.3; Bilirubin, Total 0.5 mg/dL (0.2-1.0)
== END | disposition home or self-care (01) ==
LOC: CHF HDHVI 10:37
PROVIDERS: ATTEND Internal Medicine Cardiovascular Disease
DX: I50.23 Acute on chronic systolic (congestive) heart failure (principal)
CPT/HCPCS: 36415; 80053; 83735; 83880; 96365; 96366; G0463

== ENCOUNTER → 2022-05-03 | Outpatient (CLI) | payer MEDICARE, BC ==
[2022-05-03] VITALS (10 sets, daily range): BP systolic 97–112; BP diastolic 37–48
[~2022-05-03] MED LIST changes: +CYANOCOBALAMIN (B-12) 1000 MCG/1 ML VIAL IM ONE; +CYANOCOBALAMIN (B-12) 1000 MCG/1 ML VIAL ONE; +MILRINONE 20MG/100ML 100 ML IV ONE
== END | disposition home or self-care (01) ==
LOC: CHF HDHVI 10:49
PROVIDERS: ATTEND Internal Medicine Cardiovascular Disease
DX: I25.5 Ischemic cardiomyopathy (principal); D64.9 Anemia, unspecified; I13.0 Hypertensive heart and chronic kidney disease with heart failure and stage 1 through stage 4 chronic kidney disease, or unspecified chronic kidney disease; E11.22 Type 2 diabetes mellitus with diabetic chronic kidney disease; N18.30 Chronic kidney disease, stage 3 unspecified; I50.43 Acute on chronic combined systolic (congestive) and diastolic (congestive) heart failure; E78.5 Hyperlipidemia, unspecified; I25.10 Atherosclerotic heart disease of native coronary artery without angina pectoris; E78.00 Pure hypercholesterolemia, unspecified; E11.21 Type 2 diabetes mellitus with diabetic nephropathy; Z95.0 Presence of cardiac pacemaker
CPT/HCPCS: 96365; 96366; 96372; G0463; J1250; J3420

== ENCOUNTER → 2022-05-08 | Outpatient (CLI) | payer MEDICARE, BC ==
[2022-05-08] VITALS (9 sets, daily range): BP systolic 93–112; BP diastolic 32–43
[~2022-05-08] MED LIST changes: -CYANOCOBALAMIN (B-12) 1000 MCG/1 ML VIAL IM ONE; -CYANOCOBALAMIN (B-12) 1000 MCG/1 ML VIAL ONE; -MILRINONE 20MG/100ML 100 ML IV ONE
[2022-05-08 17:34] LABS: BUN/Creatinine Ratio 29.7; Calcium 8.7 mg/dL (8.5-10.1); Magnesium 2.7 mg/dL (1.6-2.6); Potassium 4.4 mmol/L (3.5-5.1)
== END | disposition home or self-care (01) ==
LOC: CHF HDHVI 10:41
PROVIDERS: ATTEND Internal Medicine Cardiovascular Disease
DX: I50.23 Acute on chronic systolic (congestive) heart failure (principal)
CPT/HCPCS: 36415; 80048; 83735; 83880; 96365; 96366; G0463

== ENCOUNTER → 2022-05-09 | Outpatient (CLI) | payer MEDICARE, BC ==
[~2022-05-09] MED LIST changes: -DOBUTamine 1000MCG/ML 250 ML IV ONE
== END | disposition home or self-care (01) ==
LOC: Rad HDHVI 09:39
PROVIDERS: ATTEND Internal Medicine Cardiovascular Disease
DX: I08.8 Other rheumatic multiple valve diseases (principal); I10 Essential (primary) hypertension; E78.5 Hyperlipidemia, unspecified; I27.21 Secondary pulmonary arterial hypertension; Z95.0 Presence of cardiac pacemaker
CPT/HCPCS: 93306

== ENCOUNTER → 2022-05-10 | Outpatient (CLI) | payer MEDICARE, BC ==
[2022-05-10] VITALS (9 sets, daily range): BP systolic 103–116; BP diastolic 40–51
[~2022-05-10] VITALS: Ht 165.1 cm; Wt 61.2 kg
[~2022-05-10] MED LIST changes: +BUMETANIDE 1mg/4ml VIAL (0.25mg/ml) ONE; +BUMETANIDE 2.5mg/10ml (0.25 mg/ml) INJ IV ONE; +DOBUTamine 1000MCG/ML 250 ML IV ONE; +POTASSIUM CHL 20 Meq TABLET PO ONE
== END | disposition home or self-care (01) ==
LOC: CHF HDHVI 10:23
PROVIDERS: ATTEND Internal Medicine Cardiovascular Disease
DX: I13.0 Hypertensive heart and chronic kidney disease with heart failure and stage 1 through stage 4 chronic kidney disease, or unspecified chronic kidney disease (principal); E11.22 Type 2 diabetes mellitus with diabetic chronic kidney disease; N18.30 Chronic kidney disease, stage 3 unspecified; I50.43 Acute on chronic combined systolic (congestive) and diastolic (congestive) heart failure; I25.5 Ischemic cardiomyopathy; E11.21 Type 2 diabetes mellitus with diabetic nephropathy; E78.5 Hyperlipidemia, unspecified; I25.10 Atherosclerotic heart disease of native coronary artery without angina pectoris; E78.00 Pure hypercholesterolemia, unspecified; Z95.0 Presence of cardiac pacemaker
CPT/HCPCS: 96365; 96366; 96375; G0463; J1250; J3490

== ENCOUNTER → 2022-05-15 | Outpatient (CLI) | payer MEDICARE, BC ==
[2022-05-15] VITALS (10 sets, daily range): BP systolic 108–119; BP diastolic 45–55
[~2022-05-15] MED LIST changes: -BUMETANIDE 1mg/4ml VIAL (0.25mg/ml) ONE; -BUMETANIDE 2.5mg/10ml (0.25 mg/ml) INJ IV ONE; -POTASSIUM CHL 20 Meq TABLET PO ONE
[2022-05-15 16:57] LABS: Albumin 3.8 g/dL (3.4-5.0); BUN/Creatinine Ratio 28.1; Bilirubin, Total 0.6 mg/dL (0.2-1.0); Calcium 8.6 mg/dL (8.5-10.1); Magnesium 2.7 mg/dL (1.6-2.6); Potassium 4.5 mmol/L (3.5-5.1); Total Protein 7.9 g/dL (6.4-8.2)
== END | disposition home or self-care (01) ==
LOC: CHF HDHVI 10:49
PROVIDERS: ATTEND Internal Medicine Cardiovascular Disease
DX: I50.23 Acute on chronic systolic (congestive) heart failure (principal)
CPT/HCPCS: 36415; 80053; 83036; 83735; 83880; 96365; 96366; G0463

== ENCOUNTER → 2022-05-22 | Outpatient (CLI) | payer MEDICARE, BC ==
[2022-05-22] VITALS (10 sets, daily range): BP systolic 99–120; BP diastolic 35–65
[2022-05-22 15:17] LABS: Basophils # (auto) 0 10 ^3/uL (0-0.2); Basophils % (auto) 1.3 % (0.0-2.0); Eosinophils # (auto) 0.1 10 ^3/uL (0-0.8); Eosinophils % (auto) 3.8 % (0.0-7.0); Hematocrit 29.8 % (41.0-53.0); Lymphocytes # (auto) 1.2 10 ^3/uL (0.4-5.4); Lymphocytes % (auto) 34.1 % (10.0-50.0); Mean Corpuscular Hemoglobin 32.4 pg (28.0-32.0); Mean Corpuscular Hgb Conc. 33.4 g/dL (32.0-36.0); Mean Corpuscular Volume 96.9 fL (80.0-100.0); Monocytes # (auto) 0.2 10 ^3/uL (0-1.3); Monocytes % (auto) 6.5 % (0.0-12.0); Neutrophils # (auto) 1.9 10 ^3/uL (1.6-8.6); Neutrophils % (auto) 54.3 % (37.0-80.0); Nucleated Red Blood Cells % 0.3 %; Red Blood Cells 3.08 10^6/uL (4.5-5.90); Red Cell Distribution Width 15.4 % (11.8-14.3); White Blood Cell 3.6 10^3/uL (4.4-10.8)
[2022-05-22 15:30] LABS: BUN/Creatinine Ratio 25.8; Calcium 8.8 mg/dL (8.5-10.1); Magnesium 2.8 mg/dL (1.6-2.6); Potassium 4.7 mmol/L (3.5-5.1)
== END | disposition home or self-care (01) ==
LOC: CHF HDHVI 11:19
PROVIDERS: ATTEND Internal Medicine Cardiovascular Disease
DX: I50.23 Acute on chronic systolic (congestive) heart failure (principal)
CPT/HCPCS: 36415; 80048; 83735; 83880; 85025; 96365; 96366; G0463

== ENCOUNTER → 2022-05-29 | Outpatient (CLI) | payer MEDICARE, BC ==
[2022-05-29] VITALS (9 sets, daily range): BP systolic 111–129; BP diastolic 43–56
[2022-05-29 12:40] LABS: Calcium 8.9 mg/dL (8.5-10.1); Magnesium 2.7 mg/dL (1.6-2.6); Potassium 5.1 mmol/L (3.5-5.1)
== END | disposition home or self-care (01) ==
LOC: CHF HDHVI 10:29
PROVIDERS: ATTEND Internal Medicine Cardiovascular Disease
DX: I50.23 Acute on chronic systolic (congestive) heart failure (principal)
CPT/HCPCS: 36415; 80048; 83735; 83880; 96365; 96366; G0463

== ENCOUNTER → 2022-06-05 | Outpatient (CLI) | payer MEDICARE, BC ==
[2022-06-05 12:01] LABS: Albumin 3.6 g/dL (3.4-5.0); BUN/Creatinine Ratio 31.1; Calcium 8.7 mg/dL (8.5-10.1); Potassium 4.9 mmol/L (3.5-5.1)
[2022-06-05 12:04] LABS: Bilirubin, Total 0.4 mg/dL (0.2-1.0); Total Protein 7.8 g/dL (6.4-8.2)
== END | disposition home or self-care (01) ==
LOC: CHF HDHVI 10:37
PROVIDERS: ATTEND Internal Medicine Cardiovascular Disease
DX: I50.23 Acute on chronic systolic (congestive) heart failure (principal)
CPT/HCPCS: 36415; 80053; 83880; 96365; 96366; G0463

== ENCOUNTER → 2022-06-07 | Outpatient (CLI) | payer MEDICARE, BC ==
[~2022-06-07] MED LIST changes: +ALBUMIN 25% 100 ML IV ONE; -DOBUTamine 1000MCG/ML 250 ML IV ONE; +SODIUM CHLORIDE 0.9% 200 ML IV ONE
[2022-06-07 11:23] VITALS: BP 84/34
[2022-06-07 12:00] VITALS: BP 70/32
[2022-06-07 12:20] VITALS: BP 85/34
[2022-06-07 13:00] VITALS: BP 95/37
[2022-06-07 13:18] VITALS: BP 94/41
== END | disposition home or self-care (01) ==
LOC: CHF HDHVI 11:02
PROVIDERS: ATTEND Internal Medicine Cardiovascular Disease
DX: I13.0 Hypertensive heart and chronic kidney disease with heart failure and stage 1 through stage 4 chronic kidney disease, or unspecified chronic kidney disease (principal); E11.22 Type 2 diabetes mellitus with diabetic chronic kidney disease; N18.30 Chronic kidney disease, stage 3 unspecified; I50.23 Acute on chronic systolic (congestive) heart failure; I25.10 Atherosclerotic heart disease of native coronary artery without angina pectoris; E78.5 Hyperlipidemia, unspecified; E78.00 Pure hypercholesterolemia, unspecified; E11.40 Type 2 diabetes mellitus with diabetic neuropathy, unspecified; I25.5 Ischemic cardiomyopathy; Z95.0 Presence of cardiac pacemaker
CPT/HCPCS: 96365; G0463; J7050; P9047; 96361

== ENCOUNTER → 2022-06-12 | Outpatient (CLI) | payer MEDICARE, BC ==
[2022-06-12] VITALS (9 sets, daily range): BP systolic 105–116; BP diastolic 36–53
[~2022-06-12] MED LIST changes: -ALBUMIN 25% 100 ML IV ONE; +DOBUTamine 1000MCG/ML 250 ML IV ONE; -SODIUM CHLORIDE 0.9% 200 ML IV ONE; +SODIUM ZIRCONIUM CYCL 10 GM PAK ONE; +SODIUM ZIRCONIUM CYCL 10 GM PAK PO ONE
[2022-06-12 13:12] LABS: Basophils # (auto) 0.1 10 ^3/uL (0-0.2); Basophils % (auto) 1.4 % (0.0-2.0); Eosinophils # (auto) 0.2 10 ^3/uL (0-0.8); Eosinophils % (auto) 3.3 % (0.0-7.0); Hematocrit 30.5 % (41.0-53.0); Lymphocytes # (auto) 1.1 10 ^3/uL (0.4-5.4); Lymphocytes % (auto) 22.1 % (10.0-50.0); Mean Corpuscular Hemoglobin 31.8 pg (28.0-32.0); Mean Corpuscular Hgb Conc. 32.9 g/dL (32.0-36.0); Mean Corpuscular Volume 96.8 fL (80.0-100.0); Monocytes # (auto) 0.2 10 ^3/uL (0-1.3); Neutrophils # (auto) 3.4 10 ^3/uL (1.6-8.6); Neutrophils % (auto) 69.2 % (37.0-80.0); Red Blood Cells 3.15 10^6/uL (4.5-5.90); Red Cell Distribution Width 15.2 % (11.8-14.3)
[2022-06-12 13:14] LABS: BUN/Creatinine Ratio 27.3
[2022-06-12 13:43] LABS: Potassium 5.8 mmol/L (3.5-5.1)
== END | disposition home or self-care (01) ==
LOC: CHF HDHVI 11:04
PROVIDERS: ATTEND Internal Medicine Cardiovascular Disease
DX: I50.23 Acute on chronic systolic (congestive) heart failure (principal)
CPT/HCPCS: 36415; 80048; 83880; 85025; 96365; 96366; G0463

== ENCOUNTER → 2022-06-14 | Outpatient (CLI) | payer MEDICARE, BC ==
[2022-06-14] VITALS (9 sets, daily range): BP systolic 105–120; BP diastolic 34–43
[~2022-06-14] MED LIST changes: +CYANOCOBALAMIN (B-12) 1000 MCG/1 ML VIAL IM ONE; -SODIUM ZIRCONIUM CYCL 10 GM PAK ONE; -SODIUM ZIRCONIUM CYCL 10 GM PAK PO ONE
[2022-06-14 11:58] LABS: Potassium 4.7 mmol/L (3.5-5.1)
[2022-06-14 12:05] LABS: BUN/Creatinine Ratio 28.9; Calcium 8.9 mg/dL (8.5-10.1); Magnesium 2.3 mg/dL (1.6-2.6)
== END | disposition home or self-care (01) ==
LOC: CHF HDHVI 10:39
PROVIDERS: ATTEND Internal Medicine Cardiovascular Disease
DX: I50.23 Acute on chronic systolic (congestive) heart failure (principal)
CPT/HCPCS: 36415; 80048; 83735; 96365; 96366; G0463

== ENCOUNTER → 2022-06-19 | Outpatient (CLI) | payer MEDICARE, BC ==
[2022-06-19] VITALS (9 sets, daily range): BP systolic 92–112; BP diastolic 35–54
[~2022-06-19] MED LIST changes: -CYANOCOBALAMIN (B-12) 1000 MCG/1 ML VIAL IM ONE
[2022-06-19 12:19] LABS: Potassium 4.2 mmol/L (3.5-5.1)
[2022-06-19 12:30] LABS: Albumin 3.8 g/dL (3.4-5.0); BUN/Creatinine Ratio 26.9; Bilirubin, Total 0.4 mg/dL (0.2-1.0); Calcium 8.7 mg/dL (8.5-10.1); Total Protein 7.5 g/dL (6.4-8.2)
== END | disposition home or self-care (01) ==
LOC: CHF HDHVI 09:01
PROVIDERS: ATTEND Internal Medicine Cardiovascular Disease
DX: I50.23 Acute on chronic systolic (congestive) heart failure (principal)
CPT/HCPCS: 36415; 80053; 83880; 96365; 96366; G0463

== ENCOUNTER → 2022-06-20 | Outpatient (CLI) | payer MEDICARE, BC ==
[~2022-06-20] MED LIST changes: -DOBUTamine 1000MCG/ML 250 ML IV ONE
== END | disposition home or self-care (01) ==
LOC: Rad HDHVI 10:56
PROVIDERS: ATTEND Internal Medicine Cardiovascular Disease
DX: M25.532 Pain in left wrist (principal)
CPT/HCPCS: 73110

== ENCOUNTER → 2022-06-21 | Outpatient (CLI) | payer MEDICARE, BC ==
[2022-06-21] VITALS (9 sets, daily range): BP systolic 98–122; BP diastolic 36–51
[~2022-06-21] MED LIST changes: +CYANOCOBALAMIN (B-12) 1000 MCG/1 ML VIAL IM ONE; +CYANOCOBALAMIN (B-12) 1000 MCG/1 ML VIAL ONE; +DOBUTamine 1000MCG/ML 250 ML IV ONE
== END | disposition home or self-care (01) ==
LOC: CHF HDHVI 09:09
PROVIDERS: ATTEND Internal Medicine Cardiovascular Disease
DX: I13.0 Hypertensive heart and chronic kidney disease with heart failure and stage 1 through stage 4 chronic kidney disease, or unspecified chronic kidney disease (principal); E11.22 Type 2 diabetes mellitus with diabetic chronic kidney disease; N18.30 Chronic kidney disease, stage 3 unspecified; I50.43 Acute on chronic combined systolic (congestive) and diastolic (congestive) heart failure; I25.5 Ischemic cardiomyopathy; I25.10 Atherosclerotic heart disease of native coronary artery without angina pectoris; E78.5 Hyperlipidemia, unspecified; E78.00 Pure hypercholesterolemia, unspecified; E11.40 Type 2 diabetes mellitus with diabetic neuropathy, unspecified; E11.21 Type 2 diabetes mellitus with diabetic nephropathy; Z95.0 Presence of cardiac pacemaker
CPT/HCPCS: 96365; 96366; 96372; G0463; J1250; J3420

== ENCOUNTER → 2022-06-28 | Outpatient (CLI) | payer MEDICARE, BC ==
[2022-06-28] VITALS (10 sets, daily range): BP systolic 109–133; BP diastolic 44–56
[~2022-06-28] MED LIST changes: +BUMETANIDE 1mg/4ml VIAL (0.25mg/ml) ONE; +BUMETANIDE 2.5mg/10ml (0.25 mg/ml) INJ IV ONE; +BUMETANIDE ONE; -CYANOCOBALAMIN (B-12) 1000 MCG/1 ML VIAL IM ONE; -CYANOCOBALAMIN (B-12) 1000 MCG/1 ML VIAL ONE; +POTASSIUM CHL 20 Meq TABLET PO ONE
== END | disposition home or self-care (01) ==
LOC: CHF HDHVI 11:29
PROVIDERS: ATTEND Internal Medicine Cardiovascular Disease
DX: I13.0 Hypertensive heart and chronic kidney disease with heart failure and stage 1 through stage 4 chronic kidney disease, or unspecified chronic kidney disease (principal); E11.22 Type 2 diabetes mellitus with diabetic chronic kidney disease; N18.30 Chronic kidney disease, stage 3 unspecified; I50.23 Acute on chronic systolic (congestive) heart failure; I42.0 Dilated cardiomyopathy; I25.10 Atherosclerotic heart disease of native coronary artery without angina pectoris; E78.00 Pure hypercholesterolemia, unspecified; E11.21 Type 2 diabetes mellitus with diabetic nephropathy; E11.40 Type 2 diabetes mellitus with diabetic neuropathy, unspecified; Z95.0 Presence of cardiac pacemaker
CPT/HCPCS: 71046; 96365; 96366; 96375; G0463; J1250; J3490

== ENCOUNTER → 2022-07-05 | Outpatient (CLI) | payer BC, MEDICARE ==
[2022-07-05] VITALS (9 sets, daily range): BP systolic 98–113; BP diastolic 35–62
[~2022-07-05] MED LIST changes: -BUMETANIDE 1mg/4ml VIAL (0.25mg/ml) ONE; -BUMETANIDE 2.5mg/10ml (0.25 mg/ml) INJ IV ONE; -BUMETANIDE ONE; -POTASSIUM CHL 20 Meq TABLET PO ONE
== END | disposition home or self-care (01) ==
LOC: CHF HDHVI 09:27
PROVIDERS: ATTEND Internal Medicine Cardiovascular Disease
DX: I13.0 Hypertensive heart and chronic kidney disease with heart failure and stage 1 through stage 4 chronic kidney disease, or unspecified chronic kidney disease (principal); E11.22 Type 2 diabetes mellitus with diabetic chronic kidney disease; N18.30 Chronic kidney disease, stage 3 unspecified; I50.43 Acute on chronic combined systolic (congestive) and diastolic (congestive) heart failure; I42.0 Dilated cardiomyopathy; I25.5 Ischemic cardiomyopathy; I25.10 Atherosclerotic heart disease of native coronary artery without angina pectoris; E78.00 Pure hypercholesterolemia, unspecified; E11.40 Type 2 diabetes mellitus with diabetic neuropathy, unspecified; E11.21 Type 2 diabetes mellitus with diabetic nephropathy; Z95.0 Presence of cardiac pacemaker
CPT/HCPCS: 96365; 96366; G0463; J1250

== ENCOUNTER → 2022-07-10 | Outpatient (CLI) | payer BC, MEDICARE ==
[2022-07-10] VITALS (9 sets, daily range): BP systolic 99–115; BP diastolic 32–66
[2022-07-10 11:50] LABS: Basophils # (auto) 0.1 10 ^3/uL (0-0.2); Basophils % (auto) 1.2 % (0.0-2.0); Eosinophils # (auto) 0.1 10 ^3/uL (0-0.8); Eosinophils % (auto) 3.2 % (0.0-7.0); Hematocrit 33.2 % (41.0-53.0); Hemoglobin 11.1 g/dL (13.5-17.5); Lymphocytes # (auto) 1.1 10 ^3/uL (0.4-5.4); Lymphocytes % (auto) 23.8 % (10.0-50.0); Mean Corpuscular Hemoglobin 32.4 pg (28.0-32.0); Mean Corpuscular Hgb Conc. 33.5 g/dL (32.0-36.0); Mean Corpuscular Volume 96.9 fL (80.0-100.0); Monocytes # (auto) 0.3 10 ^3/uL (0-1.3); Monocytes % (auto) 7.7 % (0.0-12.0); Neutrophils # (auto) 2.8 10 ^3/uL (1.6-8.6); Neutrophils % (auto) 64.1 % (37.0-80.0); Nucleated Red Blood Cells % 0.3 %; Red Blood Cells 3.43 10^6/uL (4.5-5.90); Red Cell Distribution Width 15.5 % (11.8-14.3); White Blood Cell 4.4 10^3/uL (4.4-10.8)
[2022-07-10 11:52] LABS: Albumin 3.8 g/dL (3.4-5.0); Calcium 8.7 mg/dL (8.5-10.1); Magnesium 2.7 mg/dL (1.6-2.6); Potassium 4.2 mmol/L (3.5-5.1)
[2022-07-10 11:56] LABS: BUN/Creatinine Ratio 26.2; Bilirubin, Total 0.4 mg/dL (0.2-1.0); Total Protein 8.1 g/dL (6.4-8.2)
== END | disposition home or self-care (01) ==
LOC: CHF HDHVI 08:05
PROVIDERS: ATTEND Internal Medicine Cardiovascular Disease
DX: I50.23 Acute on chronic systolic (congestive) heart failure (principal)
CPT/HCPCS: 36415; 80053; 83735; 83880; 85025; 96365; 96366; G0463

== ENCOUNTER → 2022-08-07 | Outpatient (CLI) | payer MEDICARE ==
[2022-08-07] VITALS (9 sets, daily range): BP systolic 100–120; BP diastolic 37–45
[~2022-08-07] MED LIST changes: +CYANOCOBALAMIN (B-12) 1000 MCG/1 ML VIAL IM ONE; +CYANOCOBALAMIN (B-12) 1000 MCG/1 ML VIAL ONE
[2022-08-07 12:02] LABS: Basophils # (auto) 0 10 ^3/uL (0-0.2); Basophils % (auto) 0.8 % (0.0-2.0); Eosinophils # (auto) 0.1 10 ^3/uL (0-0.8); Eosinophils % (auto) 3.5 % (0.0-7.0); Hematocrit 34.1 % (41.0-53.0); Hemoglobin 11.3 g/dL (13.5-17.5); Lymphocytes % (auto) 25.4 % (10.0-50.0); Mean Corpuscular Hemoglobin 31.9 pg (28.0-32.0); Mean Corpuscular Hgb Conc. 33.1 g/dL (32.0-36.0); Mean Corpuscular Volume 96.2 fL (80.0-100.0); Monocytes # (auto) 0.3 10 ^3/uL (0-1.3); Monocytes % (auto) 8.3 % (0.0-12.0); Neutrophils # (auto) 2.4 10 ^3/uL (1.6-8.6); Red Blood Cells 3.55 10^6/uL (4.5-5.90); Red Cell Distribution Width 15.1 % (11.8-14.3); White Blood Cell 3.9 10^3/uL (4.4-10.8)
[2022-08-07 13:43] LABS: BUN/Creatinine Ratio 23.3; Bilirubin, Total 0.6 mg/dL (0.2-1.0); Calcium 9.1 mg/dL (8.5-10.1); Potassium 4.7 mmol/L (3.5-5.1); Total Protein 8.2 g/dL (6.4-8.2)
[2022-08-07 13:44] LABS: Albumin 3.7 g/dL (3.4-5.0); Magnesium 2.6 mg/dL (1.6-2.6)
== END | disposition home or self-care (01) ==
LOC: CHF HDHVI 09:30
PROVIDERS: ATTEND Internal Medicine Cardiovascular Disease
DX: I50.23 Acute on chronic systolic (congestive) heart failure (principal)
CPT/HCPCS: 36415; 80053; 83735; 83880; 85025; 96365; 96366; 96372; G0463

== ENCOUNTER → 2022-08-09 | Outpatient (CLI) | payer MEDICARE ==
[2022-08-09] VITALS (11 sets, daily range): BP systolic 96–114; BP diastolic 34–52
[~2022-08-09] VITALS: Ht 165.1 cm; Wt 59.0 kg
[~2022-08-09] MED LIST changes: +ALBUMIN 25% 100 ML IV ONE; -CYANOCOBALAMIN (B-12) 1000 MCG/1 ML VIAL IM ONE; -CYANOCOBALAMIN (B-12) 1000 MCG/1 ML VIAL ONE; +SODIUM CHLORIDE 0.9% 100 ML IV ONE
== END | disposition home or self-care (01) ==
LOC: CHF HDHVI 09:09
PROVIDERS: ATTEND Internal Medicine Cardiovascular Disease
DX: I13.0 Hypertensive heart and chronic kidney disease with heart failure and stage 1 through stage 4 chronic kidney disease, or unspecified chronic kidney disease (principal); E11.22 Type 2 diabetes mellitus with diabetic chronic kidney disease; I50.23 Acute on chronic systolic (congestive) heart failure; N18.30 Chronic kidney disease, stage 3 unspecified; I25.5 Ischemic cardiomyopathy; I25.10 Atherosclerotic heart disease of native coronary artery without angina pectoris; E78.00 Pure hypercholesterolemia, unspecified; E11.40 Type 2 diabetes mellitus with diabetic neuropathy, unspecified; Z95.0 Presence of cardiac pacemaker
CPT/HCPCS: 96361; 96365; 96366; 96367; G0463; J1250; P9047

== ENCOUNTER → 2022-08-14 | Outpatient (CLI) | payer MEDICARE ==
[2022-08-14] VITALS (9 sets, daily range): BP systolic 93–119; BP diastolic 35–44
[~2022-08-14] MED LIST changes: -ALBUMIN 25% 100 ML IV ONE; -SODIUM CHLORIDE 0.9% 100 ML IV ONE
[2022-08-14 11:21] LABS: Potassium 4.2 mmol/L (3.5-5.1)
[2022-08-14 11:26] LABS: BUN/Creatinine Ratio 24.4; Calcium 8.9 mg/dL (8.5-10.1); Magnesium 2.9 mg/dL (1.6-2.6)
== END | disposition home or self-care (01) ==
LOC: CHF HDHVI 08:51
PROVIDERS: ATTEND Internal Medicine Cardiovascular Disease
DX: I50.23 Acute on chronic systolic (congestive) heart failure (principal)
CPT/HCPCS: 36415; 80048; 83036; 83735; 83880; 94618; 96365; 96366; G0463

== ENCOUNTER → 2022-08-16 | Outpatient (CLI) | payer MEDICARE ==
[2022-08-16] VITALS (9 sets, daily range): BP systolic 97–113; BP diastolic 39–59
== END | disposition home or self-care (01) ==
LOC: CHF HDHVI 08:57
PROVIDERS: ATTEND Internal Medicine Cardiovascular Disease
DX: I13.0 Hypertensive heart and chronic kidney disease with heart failure and stage 1 through stage 4 chronic kidney disease, or unspecified chronic kidney disease (principal); E11.22 Type 2 diabetes mellitus with diabetic chronic kidney disease; N18.30 Chronic kidney disease, stage 3 unspecified; I50.23 Acute on chronic systolic (congestive) heart failure; I25.5 Ischemic cardiomyopathy; I42.0 Dilated cardiomyopathy; I25.10 Atherosclerotic heart disease of native coronary artery without angina pectoris; E78.00 Pure hypercholesterolemia, unspecified; E11.40 Type 2 diabetes mellitus with diabetic neuropathy, unspecified; Z95.0 Presence of cardiac pacemaker
CPT/HCPCS: 96365; 96366; G0463; J1250

== ENCOUNTER → 2022-08-21 | Outpatient (CLI) | payer MEDICARE ==
[2022-08-21] VITALS (10 sets, daily range): BP systolic 88–111; BP diastolic 28–43
[~2022-08-21] MED LIST changes: +CYANOCOBALAMIN (B-12) 1000 MCG/1 ML VIAL IM ONE; +CYANOCOBALAMIN (B-12) 1000 MCG/1 ML VIAL ONE
== END | disposition home or self-care (01) ==
LOC: CHF HDHVI 09:07
PROVIDERS: ATTEND Internal Medicine Cardiovascular Disease
DX: I13.0 Hypertensive heart and chronic kidney disease with heart failure and stage 1 through stage 4 chronic kidney disease, or unspecified chronic kidney disease (principal); E11.22 Type 2 diabetes mellitus with diabetic chronic kidney disease; N18.30 Chronic kidney disease, stage 3 unspecified; I50.23 Acute on chronic systolic (congestive) heart failure; I42.0 Dilated cardiomyopathy; I25.5 Ischemic cardiomyopathy; I25.10 Atherosclerotic heart disease of native coronary artery without angina pectoris; E78.00 Pure hypercholesterolemia, unspecified; E11.40 Type 2 diabetes mellitus with diabetic neuropathy, unspecified; E11.21 Type 2 diabetes mellitus with diabetic nephropathy; Z95.0 Presence of cardiac pacemaker
CPT/HCPCS: 96365; 96366; 96372; G0463; J1250; J3420

== ENCOUNTER → 2022-08-23 | Outpatient (CLI) | payer MEDICARE ==
[2022-08-23] VITALS (9 sets, daily range): BP systolic 91–106; BP diastolic 35–49
[~2022-08-23] MED LIST changes: -CYANOCOBALAMIN (B-12) 1000 MCG/1 ML VIAL IM ONE; -CYANOCOBALAMIN (B-12) 1000 MCG/1 ML VIAL ONE
== END | disposition home or self-care (01) ==
LOC: CHF HDHVI 09:19
PROVIDERS: ATTEND Internal Medicine Cardiovascular Disease
DX: I13.0 Hypertensive heart and chronic kidney disease with heart failure and stage 1 through stage 4 chronic kidney disease, or unspecified chronic kidney disease (principal); E11.22 Type 2 diabetes mellitus with diabetic chronic kidney disease; N18.30 Chronic kidney disease, stage 3 unspecified; I50.23 Acute on chronic systolic (congestive) heart failure; I42.0 Dilated cardiomyopathy; I25.5 Ischemic cardiomyopathy; I25.10 Atherosclerotic heart disease of native coronary artery without angina pectoris; E78.00 Pure hypercholesterolemia, unspecified; E11.40 Type 2 diabetes mellitus with diabetic neuropathy, unspecified; E11.21 Type 2 diabetes mellitus with diabetic nephropathy; Z95.0 Presence of cardiac pacemaker
CPT/HCPCS: 96365; 96366; G0463; J1250

== ENCOUNTER → 2022-08-30 | Outpatient (CLI) | payer MEDICARE ==
[2022-08-30] VITALS (9 sets, daily range): BP systolic 90–106; BP diastolic 38–49
== END | disposition home or self-care (01) ==
LOC: CHF HDHVI 09:30
PROVIDERS: ATTEND Internal Medicine Cardiovascular Disease
DX: I13.0 Hypertensive heart and chronic kidney disease with heart failure and stage 1 through stage 4 chronic kidney disease, or unspecified chronic kidney disease (principal); E11.22 Type 2 diabetes mellitus with diabetic chronic kidney disease; N18.30 Chronic kidney disease, stage 3 unspecified; I50.23 Acute on chronic systolic (congestive) heart failure; I42.0 Dilated cardiomyopathy; I25.5 Ischemic cardiomyopathy; I25.10 Atherosclerotic heart disease of native coronary artery without angina pectoris; E78.00 Pure hypercholesterolemia, unspecified; E11.40 Type 2 diabetes mellitus with diabetic neuropathy, unspecified; E11.21 Type 2 diabetes mellitus with diabetic nephropathy; Z95.0 Presence of cardiac pacemaker
CPT/HCPCS: 96365; 96366; G0463; J1250

== ENCOUNTER → 2022-08-31 | Outpatient (CLI) | payer MEDICARE ==
[~2022-08-31] MED LIST changes: -DOBUTamine 1000MCG/ML 250 ML IV ONE
[2022-08-31 14:56] LABS: Basophils # (auto) 0 10 ^3/uL (0-0.2); Basophils % (auto) 0.9 % (0.0-2.0); Eosinophils # (auto) 0.2 10 ^3/uL (0-0.8); Eosinophils % (auto) 3.1 % (0.0-7.0); Hematocrit 27.5 % (41.0-53.0); Hemoglobin 9.5 g/dL (13.5-17.5); Lymphocytes # (auto) 1.2 10 ^3/uL (0.4-5.4); Lymphocytes % (auto) 22.3 % (10.0-50.0); Mean Corpuscular Hemoglobin 32.4 pg (28.0-32.0); Mean Corpuscular Hgb Conc. 34.5 g/dL (32.0-36.0); Mean Corpuscular Volume 93.8 fL (80.0-100.0); Monocytes # (auto) 0.4 10 ^3/uL (0-1.3); Monocytes % (auto) 7.1 % (0.0-12.0); Neutrophils # (auto) 3.7 10 ^3/uL (1.6-8.6); Neutrophils % (auto) 66.6 % (37.0-80.0); Nucleated Red Blood Cells % 0.1 %; Red Blood Cells 2.94 10^6/uL (4.5-5.90); Red Cell Distribution Width 15.5 % (11.8-14.3); White Blood Cell 5.5 10^3/uL (4.4-10.8)
[2022-08-31 15:48] LABS: Albumin 3.7 g/dL (3.4-5.0); Calcium 8.7 mg/dL (8.5-10.1); Magnesium 2.9 mg/dL (1.6-2.6); Potassium 4.8 mmol/L (3.5-5.1)
[2022-08-31 16:00] LABS: BUN/Creatinine Ratio 23.1; Bilirubin, Total 0.4 mg/dL (0.2-1.0); Total Protein 7.9 g/dL (6.4-8.2)
== END | disposition home or self-care (01) ==
LOC: LAB 14:35
PROVIDERS: ATTEND Internal Medicine Cardiovascular Disease
DX: I50.23 Acute on chronic systolic (congestive) heart failure (principal)
CPT/HCPCS: 36415; 80053; 83735; 83880; 85025

== ENCOUNTER → 2022-09-04 | Outpatient (CLI) | payer MEDICARE ==
[2022-09-04] VITALS (10 sets, daily range): BP systolic 93–113; BP diastolic 36–48
[~2022-09-04] MED LIST changes: +BUMETANIDE 1mg/4ml VIAL (0.25mg/ml) ONE; +BUMETANIDE 2.5mg/10ml (0.25 mg/ml) INJ IV ONE; +BUMETANIDE INJECTION 10 ML ONE; +DOBUTamine 1000MCG/ML 250 ML IV ONE; +POTASSIUM CHL 20 Meq TABLET PO ONE
== END | disposition home or self-care (01) ==
LOC: CHF HDHVI 09:24
PROVIDERS: ATTEND Internal Medicine Cardiovascular Disease
DX: I13.0 Hypertensive heart and chronic kidney disease with heart failure and stage 1 through stage 4 chronic kidney disease, or unspecified chronic kidney disease (principal); E11.22 Type 2 diabetes mellitus with diabetic chronic kidney disease; N18.30 Chronic kidney disease, stage 3 unspecified; I50.23 Acute on chronic systolic (congestive) heart failure; I25.5 Ischemic cardiomyopathy; I42.0 Dilated cardiomyopathy; I25.10 Atherosclerotic heart disease of native coronary artery without angina pectoris; E78.00 Pure hypercholesterolemia, unspecified; E11.40 Type 2 diabetes mellitus with diabetic neuropathy, unspecified; E11.21 Type 2 diabetes mellitus with diabetic nephropathy; Z95.0 Presence of cardiac pacemaker
CPT/HCPCS: 96365; 96366; 96375; 96376; G0463; J1250; J3490

== ENCOUNTER → 2022-09-06 | Outpatient (CLI) | payer MEDICARE ==
[2022-09-06] VITALS (9 sets, daily range): BP systolic 92–124; BP diastolic 32–39
[~2022-09-06] MED LIST changes: -BUMETANIDE 1mg/4ml VIAL (0.25mg/ml) ONE; -BUMETANIDE 2.5mg/10ml (0.25 mg/ml) INJ IV ONE; -BUMETANIDE INJECTION 10 ML ONE; -POTASSIUM CHL 20 Meq TABLET PO ONE
== END | disposition home or self-care (01) ==
LOC: CHF HDHVI 08:52
PROVIDERS: ATTEND Internal Medicine Cardiovascular Disease
DX: I13.0 Hypertensive heart and chronic kidney disease with heart failure and stage 1 through stage 4 chronic kidney disease, or unspecified chronic kidney disease (principal); E11.22 Type 2 diabetes mellitus with diabetic chronic kidney disease; N18.30 Chronic kidney disease, stage 3 unspecified; I50.23 Acute on chronic systolic (congestive) heart failure; I25.5 Ischemic cardiomyopathy; I25.10 Atherosclerotic heart disease of native coronary artery without angina pectoris; E78.00 Pure hypercholesterolemia, unspecified; E11.40 Type 2 diabetes mellitus with diabetic neuropathy, unspecified; E11.21 Type 2 diabetes mellitus with diabetic nephropathy; Z95.0 Presence of cardiac pacemaker
CPT/HCPCS: 96365; 96366; G0463; J1250

== ENCOUNTER → 2022-09-11 | Outpatient (CLI) | payer MEDICARE ==
[2022-09-11] VITALS (10 sets, daily range): BP systolic 89–107; BP diastolic 32–44
[~2022-09-11] MED LIST changes: +DOBUTamine 1000MCG/ML 0 ML IV ONE; +EMPA1TAB PO; +FURO1TAB31 PO; +FUROSEMIDE 40 MG/4 ML VIAL ONE; +GABA300C10 PO; +MAGN400T40 PO; +PRAM0.5T2 PO
== END | disposition home or self-care (01) ==
LOC: CHF HDHVI 10:06
PROVIDERS: ATTEND Internal Medicine Cardiovascular Disease
DX: I13.0 Hypertensive heart and chronic kidney disease with heart failure and stage 1 through stage 4 chronic kidney disease, or unspecified chronic kidney disease (principal); E11.22 Type 2 diabetes mellitus with diabetic chronic kidney disease; I50.23 Acute on chronic systolic (congestive) heart failure; N18.30 Chronic kidney disease, stage 3 unspecified; I25.10 Atherosclerotic heart disease of native coronary artery without angina pectoris; I42.8 Other cardiomyopathies; E11.40 Type 2 diabetes mellitus with diabetic neuropathy, unspecified; E78.00 Pure hypercholesterolemia, unspecified; Z95.0 Presence of cardiac pacemaker
CPT/HCPCS: 96365; 96366; G0463; J1250

== ENCOUNTER → 2022-09-11 | Outpatient (CLI) | payer MEDICARE ==
[~2022-09-11] MED LIST changes: -DOBUTamine 1000MCG/ML 0 ML IV ONE; -DOBUTamine 1000MCG/ML 250 ML IV ONE; -EMPA1TAB PO; -FURO1TAB31 PO; -FUROSEMIDE 40 MG/4 ML VIAL ONE; -GABA300C10 PO; -MAGN400T40 PO; -PRAM0.5T2 PO
[2022-09-11 14:51] LABS: Basophils # (auto) 0.1 10 ^3/uL (0-0.2); Basophils % (auto) 1.7 % (0.0-2.0); Eosinophils # (auto) 0.1 10 ^3/uL (0-0.8); Eosinophils % (auto) 2.4 % (0.0-7.0); Lymphocytes # (auto) 0.9 10 ^3/uL (0.4-5.4); Lymphocytes % (auto) 22.6 % (10.0-50.0); Mean Corpuscular Hemoglobin 31.9 pg (28.0-32.0); Mean Corpuscular Hgb Conc. 33.5 g/dL (32.0-36.0); Mean Corpuscular Volume 95.1 fL (80.0-100.0); Monocytes # (auto) 0.2 10 ^3/uL (0-1.3); Monocytes % (auto) 5.5 % (0.0-12.0); Neutrophils # (auto) 2.7 10 ^3/uL (1.6-8.6); Neutrophils % (auto) 67.8 % (37.0-80.0); Nucleated Red Blood Cells % 0.1 %; Red Blood Cells 3.15 10^6/uL (4.5-5.90); Red Cell Distribution Width 15.9 % (11.8-14.3); White Blood Cell 3.9 10^3/uL (4.4-10.8)
[2022-09-11 15:28] LABS: Albumin 3.7 g/dL (3.4-5.0); Calcium 8.8 mg/dL (8.5-10.1); Potassium 5.3 mmol/L (3.5-5.1)
[2022-09-11 15:30] LABS: BUN/Creatinine Ratio 19.6
[2022-09-11 15:33] LABS: Bilirubin, Total 0.4 mg/dL (0.2-1.0); Total Protein 8.1 g/dL (6.4-8.2)
== END | disposition home or self-care (01) ==
LOC: LAB 14:17
PROVIDERS: ATTEND Internal Medicine Cardiovascular Disease
DX: I50.23 Acute on chronic systolic (congestive) heart failure (principal)
CPT/HCPCS: 36415; 80053; 83735; 83880; 85025

== ENCOUNTER → 2022-09-12 | Outpatient (CLI) | payer MEDICARE ==
[2022-09-12] VITALS (9 sets, daily range): BP systolic 91–115; BP diastolic 30–41
[~2022-09-12] MED LIST changes: +CYANOCOBALAMIN (B-12) 1000 MCG/1 ML VIAL IM ONE; +CYANOCOBALAMIN (B-12) 1000 MCG/1 ML VIAL ONE; +DOBUTamine 1000MCG/ML 250 ML IV ONE; +FUROSEMIDE 40 MG/4 ML VIAL IV ONE; +FUROSEMIDE 40 MG/4 ML VIAL ONE; +TESTOSTERONE CYPIONATE 200 MG/ML 1ML VIAL IM ONE
== END | disposition home or self-care (01) ==
LOC: CHF HDHVI 10:59
PROVIDERS: ATTEND Internal Medicine Cardiovascular Disease
DX: I13.0 Hypertensive heart and chronic kidney disease with heart failure and stage 1 through stage 4 chronic kidney disease, or unspecified chronic kidney disease (principal); E11.22 Type 2 diabetes mellitus with diabetic chronic kidney disease; I50.23 Acute on chronic systolic (congestive) heart failure; N18.30 Chronic kidney disease, stage 3 unspecified; E29.1 Testicular hypofunction; I25.10 Atherosclerotic heart disease of native coronary artery without angina pectoris; I25.2 Old myocardial infarction; I42.8 Other cardiomyopathies; E11.40 Type 2 diabetes mellitus with diabetic neuropathy, unspecified; Z95.0 Presence of cardiac pacemaker
CPT/HCPCS: 96365; 96366; 96372; 96375; G0463; J1071; J1250; J1940; J3420

== ENCOUNTER → 2022-09-20 | Outpatient (CLI) | payer MEDICARE ==
[2022-09-20] VITALS (9 sets, daily range): BP systolic 92–105; BP diastolic 39–48
[~2022-09-20] MED LIST changes: -CYANOCOBALAMIN (B-12) 1000 MCG/1 ML VIAL IM ONE; -CYANOCOBALAMIN (B-12) 1000 MCG/1 ML VIAL ONE; +EMPA1TAB PO; +FURO1TAB31 PO; +GABA300C10 PO; +MAGN400T40 PO; +POTASSIUM CHL 20 Meq TABLET PO ONE; +PRAM0.5T2 PO; -TESTOSTERONE CYPIONATE 200 MG/ML 1ML VIAL IM ONE
== END | disposition home or self-care (01) ==
LOC: CHF HDHVI 10:04
PROVIDERS: ATTEND Internal Medicine Cardiovascular Disease
DX: I13.0 Hypertensive heart and chronic kidney disease with heart failure and stage 1 through stage 4 chronic kidney disease, or unspecified chronic kidney disease (principal); E11.22 Type 2 diabetes mellitus with diabetic chronic kidney disease; N18.30 Chronic kidney disease, stage 3 unspecified; I50.43 Acute on chronic combined systolic (congestive) and diastolic (congestive) heart failure; I42.0 Dilated cardiomyopathy; I95.9 Hypotension, unspecified; I25.10 Atherosclerotic heart disease of native coronary artery without angina pectoris; E11.40 Type 2 diabetes mellitus with diabetic neuropathy, unspecified; I25.2 Old myocardial infarction; E78.00 Pure hypercholesterolemia, unspecified; E11.21 Type 2 diabetes mellitus with diabetic nephropathy; Z95.0 Presence of cardiac pacemaker
CPT/HCPCS: 96365; 96366; 96375; G0463; J1250; J1940

== ENCOUNTER → 2022-09-20 | Outpatient (CLI) | payer MEDICARE ==
[~2022-09-20] MED LIST changes: -DOBUTamine 1000MCG/ML 250 ML IV ONE; -EMPA1TAB PO; -FURO1TAB31 PO; -FUROSEMIDE 40 MG/4 ML VIAL IV ONE; -FUROSEMIDE 40 MG/4 ML VIAL ONE; -GABA300C10 PO; -MAGN400T40 PO; -POTASSIUM CHL 20 Meq TABLET PO ONE; -PRAM0.5T2 PO
[2022-09-20 14:53] LABS: Albumin 3.5 g/dL (3.4-5.0); Calcium 8.5 mg/dL (8.5-10.1); Potassium 5.2 mmol/L (3.5-5.1)
[2022-09-20 14:56] LABS: BUN/Creatinine Ratio 17.3 (10.0-20.0); Bilirubin, Total 0.4 mg/dL (0.2-1.0); Total Protein 8.1 g/dL (6.4-8.2)
[2022-09-20 14:59] LABS: Basophils # (auto) 0 10 ^3/uL (0-0.2); Eosinophils # (auto) 0.1 10 ^3/uL (0-0.8); Eosinophils % (auto) 4.4 % (0.0-7.0); Hematocrit 28.9 % (41.0-53.0); Hemoglobin 9.5 g/dL (13.5-17.5); Lymphocytes # (auto) 0.8 10 ^3/uL (0.4-5.4); Mean Corpuscular Hemoglobin 31.9 pg (28.0-32.0); Mean Corpuscular Hgb Conc. 32.9 g/dL (32.0-36.0); Mean Corpuscular Volume 96.8 fL (80.0-100.0); Monocytes # (auto) 0.3 10 ^3/uL (0-1.3); Monocytes % (auto) 9.2 % (0.0-12.0); Neutrophils # (auto) 1.9 10 ^3/uL (1.6-8.6); Neutrophils % (auto) 59.4 % (37.0-80.0); Nucleated Red Blood Cells % 0.1 %; Red Blood Cells 2.99 10^6/uL (4.5-5.90); Red Cell Distribution Width 16.6 % (11.8-14.3); White Blood Cell 3.2 10^3/uL (4.4-10.8)
== END | disposition home or self-care (01) ==
LOC: LAB 14:18
PROVIDERS: ATTEND Internal Medicine Cardiovascular Disease
DX: I50.23 Acute on chronic systolic (congestive) heart failure (principal)
CPT/HCPCS: 36415; 80053; 83735; 83880; 85025

== ENCOUNTER → 2022-09-25 | Outpatient (CLI) | payer MEDICARE ==
[~2022-09-25] MED LIST changes: +ALBUMIN 25% 100 ML IV ONE; +DOBUTamine 1000MCG/ML 250 ML IV ONE; +DOPamine 1600MCG/ML D5W 250 ML IV ONE; +EMPA1TAB PO; +FURO1TAB31 PO; +FUROSEMIDE 40 MG/4 ML VIAL IV ONE; +FUROSEMIDE 40 MG/4 ML VIAL ONE; +GABA300C10 PO; +MAGN400T40 PO; +PRAM0.5T2 PO; +metOLazone 5 MG TAB ONE; +metOLazone 5 MG TAB PO ONE
[2022-09-25 13:07] VITALS: BP 107/49
[2022-09-25 13:15] VITALS: BP 101/44
[2022-09-25 13:30] VITALS: BP 105/49
[2022-09-25 13:45] VITALS: BP 102/50
[2022-09-25 14:00] VITALS: BP 105/53
[2022-09-25 14:59] VITALS: BP 97/53
== END | disposition home or self-care (01) ==
LOC: CHF HDHVI 10:47
PROVIDERS: ATTEND Internal Medicine Cardiovascular Disease
DX: I13.0 Hypertensive heart and chronic kidney disease with heart failure and stage 1 through stage 4 chronic kidney disease, or unspecified chronic kidney disease (principal); E11.22 Type 2 diabetes mellitus with diabetic chronic kidney disease; I50.42 Chronic combined systolic (congestive) and diastolic (congestive) heart failure; N18.30 Chronic kidney disease, stage 3 unspecified; I95.9 Hypotension, unspecified; E11.40 Type 2 diabetes mellitus with diabetic neuropathy, unspecified; I25.10 Atherosclerotic heart disease of native coronary artery without angina pectoris; I25.2 Old myocardial infarction; E11.51 Type 2 diabetes mellitus with diabetic peripheral angiopathy without gangrene; E78.00 Pure hypercholesterolemia, unspecified; Z95.810 Presence of automatic (implantable) cardiac defibrillator
CPT/HCPCS: 96365; 96367; 96375; G0463; J1265; J1940; P9047

== ENCOUNTER → 2022-09-27 | Outpatient (CLI) | payer MEDICARE ==
[~2022-09-27] MED LIST changes: -ALBUMIN 25% 100 ML IV ONE; -DOBUTamine 1000MCG/ML 250 ML IV ONE; -DOPamine 1600MCG/ML D5W 250 ML IV ONE; -FUROSEMIDE 40 MG/4 ML VIAL IV ONE; -FUROSEMIDE 40 MG/4 ML VIAL ONE; -metOLazone 5 MG TAB ONE; -metOLazone 5 MG TAB PO ONE
[2022-09-27 14:11] LABS: Basophils # (auto) 0 10 ^3/uL (0-0.2); Basophils % (auto) 0.9 % (0.0-2.0); Eosinophils # (auto) 0.1 10 ^3/uL (0-0.8); Eosinophils % (auto) 3.1 % (0.0-7.0); Hematocrit 27.4 % (41.0-53.0); Hemoglobin 9.1 g/dL (13.5-17.5); Lymphocytes # (auto) 0.9 10 ^3/uL (0.4-5.4); Lymphocytes % (auto) 21.6 % (10.0-50.0); Mean Corpuscular Hemoglobin 32.4 pg (28.0-32.0); Mean Corpuscular Hgb Conc. 33.1 g/dL (32.0-36.0); Mean Corpuscular Volume 97.7 fL (80.0-100.0); Monocytes # (auto) 0.4 10 ^3/uL (0-1.3); Monocytes % (auto) 10.4 % (0.0-12.0); Neutrophils # (auto) 2.6 10 ^3/uL (1.6-8.6); Nucleated Red Blood Cells % 0.1 %; Red Cell Distribution Width 17.1 % (11.8-14.3); White Blood Cell 4.1 10^3/uL (4.4-10.8)
[2022-09-27 14:35] LABS: Albumin 3.7 g/dL (3.4-5.0); Calcium 8.6 mg/dL (8.5-10.1); Magnesium 3.4 mg/dL (1.6-2.6); Potassium 5.1 mmol/L (3.5-5.1)
[2022-09-27 14:40] LABS: BUN/Creatinine Ratio 19.3 (10.0-20.0); Bilirubin, Total 0.5 mg/dL (0.2-1.0); Total Protein 7.8 g/dL (6.4-8.2)
== END | disposition home or self-care (01) ==
LOC: LAB 13:57
PROVIDERS: ATTEND Internal Medicine Cardiovascular Disease
DX: I50.43 Acute on chronic combined systolic (congestive) and diastolic (congestive) heart failure (principal)
CPT/HCPCS: 36415; 80053; 83735; 83880; 85025

== ENCOUNTER → 2022-09-27 | Outpatient (CLI) | payer MEDICARE ==
[~2022-09-27] MED LIST changes: +BUMETANIDE 1mg/4ml VIAL (0.25mg/ml) ONE; +BUMETANIDE 2.5mg/10ml (0.25 mg/ml) INJ IV ONE; +DOBUTamine 1000MCG/ML 250 ML IV ONE; +POTASSIUM CHL 20 Meq TABLET PO ONE; +metOLazone 5 MG TAB ONE; +metOLazone 5 MG TAB PO ONE
[2022-09-27 10:16] VITALS: BP 106/47
== END | disposition home or self-care (01) ==
LOC: CHF HDHVI 10:00
PROVIDERS: ATTEND Internal Medicine Cardiovascular Disease
DX: I13.0 Hypertensive heart and chronic kidney disease with heart failure and stage 1 through stage 4 chronic kidney disease, or unspecified chronic kidney disease (principal); E11.22 Type 2 diabetes mellitus with diabetic chronic kidney disease; N18.30 Chronic kidney disease, stage 3 unspecified; I50.43 Acute on chronic combined systolic (congestive) and diastolic (congestive) heart failure; I42.0 Dilated cardiomyopathy; E11.51 Type 2 diabetes mellitus with diabetic peripheral angiopathy without gangrene; E11.40 Type 2 diabetes mellitus with diabetic neuropathy, unspecified; I25.10 Atherosclerotic heart disease of native coronary artery without angina pectoris; I25.2 Old myocardial infarction; E78.00 Pure hypercholesterolemia, unspecified; E11.21 Type 2 diabetes mellitus with diabetic nephropathy; Z95.810 Presence of automatic (implantable) cardiac defibrillator
CPT/HCPCS: 96365; 96366; 96375; G0463; J1250; J3490

== ENCOUNTER 2022-09-28 08:37 | Inpatient (IN) | payer MEDICARE ==
[~2022-09-28] VITALS: Ht 162.6 cm; Wt 67.0 kg
[~2022-09-28 08:37] MED LIST changes: -BUMETANIDE 1mg/4ml VIAL (0.25mg/ml) ONE; -BUMETANIDE 2.5mg/10ml (0.25 mg/ml) INJ IV ONE; -DOBUTamine 1000MCG/ML 250 ML IV ONE; -EMPA1TAB PO; -FURO1TAB31 PO; -GABA300C10 PO; -MAGN400T40 PO; -POTASSIUM CHL 20 Meq TABLET PO ONE; -PRAM0.5T2 PO; -metOLazone 5 MG TAB ONE; -metOLazone 5 MG TAB PO ONE
[2022-09-28] MEDS ORDERED: DOPamine 1600MCG/ML D5W 250 ML IV SCH (16:00)
[2022-09-28] MEDS ORDERED: SACU1TAB PO (16:34)
[2022-09-28] MEDS ORDERED: MAGN400T40 PO (16:34)
[2022-09-28] MEDS ORDERED: PRAM0.5T2 PO (16:34)
[2022-09-28] MEDS ORDERED: GABA300C10 PO (16:34)
[2022-09-28] MEDS ORDERED: FURO1TAB31 PO (16:34)
[2022-09-28] MEDS ORDERED: IVAB1.7T PO (16:34)
[2022-09-28] MEDS ORDERED: EMPA1TAB PO (16:34)
[2022-09-28 17:00] VITALS: BP 102/50
[2022-09-28 17:28] LABS: Eosinophils # (auto) 0.1 10 ^3/uL (0-0.8); Hemoglobin 8.2 g/dL (13.5-17.5); Lymphocytes # (auto) 0.8 10 ^3/uL (0.4-5.4); Neutrophils # (auto) 2.2 10 ^3/uL (1.6-8.6); White Blood Cell 3.4 10^3/uL (4.4-10.8)
[2022-09-28 17:30] LABS: Basophils # (auto) 0 10 ^3/uL (0-0.2); Basophils % (auto) 0.8 % (0.0-2.0); Eosinophils % (auto) 3.3 % (0.0-7.0); Hematocrit 24.5 % (41.0-53.0); Lymphocytes % (auto) 22.6 % (10.0-50.0); Mean Corpuscular Hemoglobin 32.4 pg (28.0-32.0); Mean Corpuscular Hgb Conc. 33.5 g/dL (32.0-36.0); Mean Corpuscular Volume 96.7 fL (80.0-100.0); Monocytes # (auto) 0.3 10 ^3/uL (0-1.3); Monocytes % (auto) 9.3 % (0.0-12.0); Red Blood Cells 2.53 10^6/uL (4.5-5.90); Red Cell Distribution Width 16.6 % (11.8-14.3)
[2022-09-28 17:51] LABS: Calcium 8.3 mg/dL (8.5-10.1); Potassium 4.8 mmol/L (3.5-5.1)
[2022-09-28] MEDS: FUROSEMIDE INJECTION 100 MG in SODIUM CHL 0.9% 100 ML IV SCH (17:52)
[2022-09-28] MEDS ORDERED: DIGOXIN 0.125 MG TAB PO SCH ×2 (18:00)
[2022-09-28] MEDS ORDERED: DEXTROSE (50%) 50ML SYRG IV PRN (19:15)
[2022-09-28 22:00] VITALS: BP 96/52
[2022-09-28] MEDS ORDERED: IVABRADINE 5 MG TAB PO SCH (22:00)
[2022-09-28] MEDS: ACCU-CHEK COMFORT CURVE STRIP VI SCH (22:10)
[2022-09-28] MEDS: InsuLIN REG 1unit/0.01ml Soln (100units/ml) SC SCH (22:12)
[2022-09-29] MEDS ORDERED: MORPHINE SULFATE INJ 2 MG/ml SYRG IV PRN ×2 (00:30→08:30)
[2022-09-29] MEDS ORDERED: NITROGLYCERIN 0.4 MG SL TAB SL PRN ×2 (00:30→08:30)
[2022-09-29] MEDS: FUROSEMIDE INJECTION 100 MG in SODIUM CHL 0.9% 100 ML IV SCH ×3 (02:00→17:32)
[2022-09-29 05:00] VITALS: BP 81/45
[2022-09-29] MEDS: ACCU-CHEK COMFORT CURVE STRIP VI SCH ×4 (06:21→21:19)
[2022-09-29] MEDS: InsuLIN REG 1unit/0.01ml Soln (100units/ml) SC SCH ×4 (06:21→21:23)
[2022-09-29] MEDS ORDERED: DEXTROSE (50%) 50ML SYRG IV PRN (08:30)
[2022-09-29] MEDS ORDERED: DOPamine 1600MCG/ML D5W 250 ML IV SCH (08:30)
[2022-09-29 09:00] VITALS: BP_SYST 76; BP_SYST 87; BP_DIAS 36; BP_DIAS 46
[2022-09-29] MEDS: IVABRADINE 5 MG TAB PO SCH ×2 (09:04→21:19)
[2022-09-29] MEDS: DOPamine 1600MCG/ML D5W 250 ML IV SCH (12:12)
[2022-09-29] MEDS: ALBUMIN 25% 100 ML IV SCH ×2 (12:14→20:00)
[2022-09-29 13:00] VITALS: BP 84/45
[2022-09-29 17:00] VITALS: BP 94/50
[2022-09-29] MEDS: PRAMIPEXOLE DIHYDROCHLORIDE MO 0.25 MG TAB PO SCH (21:18)
[2022-09-29 22:00] VITALS: BP 91/55
[2022-09-30] MEDS: ALBUMIN 25% 100 ML IV SCH (03:49)
[2022-09-30] MEDS: FUROSEMIDE INJECTION 100 MG in SODIUM CHL 0.9% 100 ML IV SCH ×2 (04:30→14:14)
[2022-09-30 05:00] VITALS: BP_SYST 87; BP_SYST 89; BP_DIAS 44; BP_DIAS 48
[2022-09-30] MEDS: ACCU-CHEK COMFORT CURVE STRIP VI SCH ×4 (06:40→21:51)
[2022-09-30] MEDS: InsuLIN REG 1unit/0.01ml Soln (100units/ml) SC SCH ×4 (06:41→21:59)
[2022-09-30 09:00] VITALS: BP 111/62
[2022-09-30] MEDS: DOPamine 1600MCG/ML D5W 250 ML IV SCH (09:07)
[2022-09-30] MEDS: CLOPIDOGREL BISULFATE 75 MG TAB PO SCH (09:07)
[2022-09-30] MEDS: IVABRADINE 5 MG TAB PO SCH ×2 (10:00→21:50)
[2022-09-30 13:00] VITALS: BP 106/50
[2022-09-30] MEDS: DIGOXIN 0.125 MG TAB PO SCH (15:59)
[2022-09-30 17:00] VITALS: BP 93/56
[2022-09-30] MEDS: TAMSULOSIN HYDROCHLORIDE 0.4 MG CAP PO SCH (17:55)
[2022-09-30 20:00] VITALS: BP 93/51
[2022-09-30] MEDS: PRAMIPEXOLE DIHYDROCHLORIDE MO 0.25 MG TAB PO SCH (21:50)
[2022-09-30 22:00] VITALS: BP 93/51
[2022-10-01] MEDS: FUROSEMIDE INJECTION 100 MG in SODIUM CHL 0.9% 100 ML IV SCH ×3 (00:27→20:30)
[2022-10-01] MEDS: DOPamine 1600MCG/ML D5W 250 ML IV SCH ×2 (04:30→23:39)
[2022-10-01 05:00] VITALS: BP 111/57
[2022-10-01] MEDS: ACCU-CHEK COMFORT CURVE STRIP VI SCH ×4 (06:22→21:54)
[2022-10-01] MEDS: InsuLIN REG 1unit/0.01ml Soln (100units/ml) SC SCH ×4 (06:23→22:06)
[2022-10-01] MEDS: CLOPIDOGREL BISULFATE 75 MG TAB PO SCH (08:44)
[2022-10-01 09:00] VITALS: BP 104/40
[2022-10-01] MEDS: IVABRADINE 5 MG TAB PO SCH ×2 (10:00→21:53)
[2022-10-01 13:00] VITALS: BP 97/37
[2022-10-01 15:59] LABS: Basophils # (auto) 0 10 ^3/uL (0-0.2); Basophils % (auto) 0.6 % (0.0-2.0); Eosinophils # (auto) 0.1 10 ^3/uL (0-0.8); Eosinophils % (auto) 1.4 % (0.0-7.0); Hematocrit 26.2 % (41.0-53.0); Hemoglobin 8.8 g/dL (13.5-17.5); Lymphocytes # (auto) 0.8 10 ^3/uL (0.4-5.4); Mean Corpuscular Hemoglobin 32.2 pg (28.0-32.0); Mean Corpuscular Hgb Conc. 33.6 g/dL (32.0-36.0); Mean Corpuscular Volume 95.9 fL (80.0-100.0); Monocytes # (auto) 0.5 10 ^3/uL (0-1.3); Monocytes % (auto) 9.1 % (0.0-12.0); Neutrophils # (auto) 4.1 10 ^3/uL (1.6-8.6); Neutrophils % (auto) 73.9 % (37.0-80.0); Red Blood Cells 2.73 10^6/uL (4.5-5.90); Red Cell Distribution Width 16.8 % (11.8-14.3); White Blood Cell 5.5 10^3/uL (4.4-10.8)
[2022-10-01 16:05] LABS: Albumin 3.6 g/dL (3.4-5.0); Calcium 8.4 mg/dL (8.5-10.1); Potassium 4.4 mmol/L (3.5-5.1)
[2022-10-01 16:09] LABS: BUN/Creatinine Ratio 25.6 (10.0-20.0); Bilirubin, Total 0.8 mg/dL (0.2-1.0); Total Protein 7.1 g/dL (6.4-8.2)
[2022-10-01 17:07] VITALS: BP 91/37
[2022-10-01] MEDS: TAMSULOSIN HYDROCHLORIDE 0.4 MG CAP PO SCH (17:57)
[2022-10-01] MEDS ORDERED: ALBUMIN 25% 100 ML IV SCH (18:00)
[2022-10-01 20:00] VITALS: BP 93/51
[2022-10-01] MEDS: ALBUMIN 25% 100 ML IV SCH ×2 (20:47→21:53)
[2022-10-01] MEDS: PRAMIPEXOLE DIHYDROCHLORIDE MO 0.25 MG TAB PO SCH (21:54)
[2022-10-01 22:00] VITALS: BP 119/52
[2022-10-02] VITALS (7 sets, daily range): BP systolic 105–117; BP diastolic 48–65
[2022-10-02] MEDS: FUROSEMIDE INJECTION 100 MG in SODIUM CHL 0.9% 100 ML IV SCH ×2 (06:30→16:27)
[2022-10-02] MEDS: InsuLIN REG 1unit/0.01ml Soln (100units/ml) SC SCH ×4 (07:00→21:42)
[2022-10-02] MEDS: ACCU-CHEK COMFORT CURVE STRIP VI SCH ×4 (07:15→21:56)
[2022-10-02] MEDS: IVABRADINE 5 MG TAB PO SCH ×2 (09:08→21:55)
[2022-10-02] MEDS: CLOPIDOGREL BISULFATE 75 MG TAB PO SCH (09:08)
[2022-10-02] MEDS: DIGOXIN 0.125 MG TAB PO SCH (09:09)
[2022-10-02] MEDS: TAMSULOSIN HYDROCHLORIDE 0.4 MG CAP PO SCH (17:48)
[2022-10-02] MEDS: DOPamine 1600MCG/ML D5W 250 ML IV SCH (20:48)
[2022-10-02] MEDS: PRAMIPEXOLE DIHYDROCHLORIDE MO 0.25 MG TAB PO SCH (21:55)
[2022-10-03] MEDS: FUROSEMIDE INJECTION 100 MG in SODIUM CHL 0.9% 100 ML IV SCH ×2 (02:30→12:18)
[2022-10-03 05:00] VITALS: BP 114/60
[2022-10-03] MEDS: ACCU-CHEK COMFORT CURVE STRIP VI SCH ×3 (06:49→17:00)
[2022-10-03] MEDS: InsuLIN REG 1unit/0.01ml Soln (100units/ml) SC SCH ×3 (06:50→17:00)
[2022-10-03 09:00] VITALS: BP 104/54
[2022-10-03] MEDS: IVABRADINE 5 MG TAB PO SCH (09:44)
[2022-10-03] MEDS: CLOPIDOGREL BISULFATE 75 MG TAB PO SCH (09:44)
[2022-10-03 13:00] VITALS: BP 117/57
[2022-10-03 16:03] VITALS: BP 108/65
[2022-10-03] MEDS: DOPamine 1600MCG/ML D5W 250 ML IV SCH (16:20)
== END 2022-10-03 17:23 | disposition home or self-care (01) | DRG 291 ==
LOC: TELE-CENTR 14:28
PROVIDERS: ADMIT Internal Medicine Cardiovascular Disease; ATTEND Internal Medicine Cardiovascular Disease
DX: I13.0 Hypertensive heart and chronic kidney disease with heart failure and stage 1 through stage 4 chronic kidney disease, or unspecified chronic kidney disease (principal); I50.23 Acute on chronic systolic (congestive) heart failure; N17.9 Acute kidney failure, unspecified; D64.9 Anemia, unspecified; I25.5 Ischemic cardiomyopathy; I73.9 Peripheral vascular disease, unspecified; G47.33 Obstructive sleep apnea (adult) (pediatric); Z20.822 Contact with and (suspected) exposure to COVID-19; I25.10 Atherosclerotic heart disease of native coronary artery without angina pectoris; I95.9 Hypotension, unspecified; N18.2 Chronic kidney disease, stage 2 (mild); Z95.810 Presence of automatic (implantable) cardiac defibrillator; Z82.49 Family history of ischemic heart disease and other diseases of the circulatory system
CPT/HCPCS: 36415; 80048; 80053; 80162; 82962; 83880; 85025; 87426; G0378; J1815; P9047

== ENCOUNTER → 2022-10-09 | Outpatient (CLI) | payer MEDICARE ==
[2022-10-09] VITALS (9 sets, daily range): BP systolic 99–115; BP diastolic 45–57
[~2022-10-09] MED LIST changes: +CYANOCOBALAMIN (B-12) 1000 MCG/1 ML VIAL IM ONE; +CYANOCOBALAMIN (B-12) 1000 MCG/1 ML VIAL ONE; +DOPamine 1600MCG/ML D5W 250 ML IV ONE; +EMPA1TAB PO; +FURO1TAB31 PO; -FURO1TAB33 PO; +GABA300C10 PO; -LINA5TAB PO; -LORA-655 PO; +MAGN400T40 PO; +PRAM0.5T2 PO
== END | disposition home or self-care (01) ==
LOC: CHF HDHVI 09:40
PROVIDERS: ATTEND Internal Medicine Cardiovascular Disease
DX: I13.0 Hypertensive heart and chronic kidney disease with heart failure and stage 1 through stage 4 chronic kidney disease, or unspecified chronic kidney disease (principal); E11.22 Type 2 diabetes mellitus with diabetic chronic kidney disease; N18.30 Chronic kidney disease, stage 3 unspecified; I50.43 Acute on chronic combined systolic (congestive) and diastolic (congestive) heart failure; I25.10 Atherosclerotic heart disease of native coronary artery without angina pectoris; I25.2 Old myocardial infarction; E78.00 Pure hypercholesterolemia, unspecified; E11.21 Type 2 diabetes mellitus with diabetic nephropathy; E11.40 Type 2 diabetes mellitus with diabetic neuropathy, unspecified; E11.51 Type 2 diabetes mellitus with diabetic peripheral angiopathy without gangrene; Z20.822 Contact with and (suspected) exposure to COVID-19; Z95.810 Presence of automatic (implantable) cardiac defibrillator
CPT/HCPCS: 96365; 96366; 96372; G0463; J1265; J3420

== ENCOUNTER → 2022-10-11 | Outpatient (CLI) | payer MEDICARE ==
[2022-10-11] VITALS (9 sets, daily range): BP systolic 105–116; BP diastolic 44–56
[~2022-10-11] MED LIST changes: -CYANOCOBALAMIN (B-12) 1000 MCG/1 ML VIAL IM ONE; -CYANOCOBALAMIN (B-12) 1000 MCG/1 ML VIAL ONE
== END | disposition home or self-care (01) ==
LOC: CHF HDHVI 08:58
PROVIDERS: ATTEND Internal Medicine Cardiovascular Disease
DX: J90 Pleural effusion, not elsewhere classified (principal); I25.10 Atherosclerotic heart disease of native coronary artery without angina pectoris; I25.2 Old myocardial infarction; E78.00 Pure hypercholesterolemia, unspecified; E11.21 Type 2 diabetes mellitus with diabetic nephropathy; E11.51 Type 2 diabetes mellitus with diabetic peripheral angiopathy without gangrene; E11.40 Type 2 diabetes mellitus with diabetic neuropathy, unspecified; I13.0 Hypertensive heart and chronic kidney disease with heart failure and stage 1 through stage 4 chronic kidney disease, or unspecified chronic kidney disease; E11.22 Type 2 diabetes mellitus with diabetic chronic kidney disease; N18.30 Chronic kidney disease, stage 3 unspecified; I50.43 Acute on chronic combined systolic (congestive) and diastolic (congestive) heart failure; Z95.810 Presence of automatic (implantable) cardiac defibrillator
CPT/HCPCS: 71046; 96365; 96366; G0463; J1265

== ENCOUNTER → 2022-10-12 | Outpatient (CLI) | payer MEDICARE ==
[2022-10-12] VITALS (8 sets, daily range): BP systolic 109–124; BP diastolic 51–63
[~2022-10-12] VITALS: Ht 30.5 cm; Wt 64.9 kg
[~2022-10-12] MED LIST changes: +BUMETANIDE 2.5mg/10ml (0.25 mg/ml) INJ IV ONE; +BUMETANIDE INJECTION 10 ML ONE; +FURO1TAB33 PO; +LINA5TAB PO; +LORA-655 PO; +POTASSIUM CHL 20 Meq TABLET PO ONE
== END | disposition home or self-care (01) ==
LOC: CHF HDHVI 14:30
PROVIDERS: ATTEND Internal Medicine Cardiovascular Disease
DX: I13.0 Hypertensive heart and chronic kidney disease with heart failure and stage 1 through stage 4 chronic kidney disease, or unspecified chronic kidney disease (principal); E11.22 Type 2 diabetes mellitus with diabetic chronic kidney disease; I50.42 Chronic combined systolic (congestive) and diastolic (congestive) heart failure; N18.30 Chronic kidney disease, stage 3 unspecified; I25.10 Atherosclerotic heart disease of native coronary artery without angina pectoris; I25.2 Old myocardial infarction; E78.00 Pure hypercholesterolemia, unspecified; E11.40 Type 2 diabetes mellitus with diabetic neuropathy, unspecified; E11.51 Type 2 diabetes mellitus with diabetic peripheral angiopathy without gangrene; Z95.810 Presence of automatic (implantable) cardiac defibrillator
CPT/HCPCS: 96365; 96366; 96375; G0463; J1265

== ENCOUNTER 2022-10-15 11:50 | Day surgery (SDC) | payer MEDICARE ==
[~2022-10-15] VITALS: Ht 165.1 cm; Wt 64.0 kg
[~2022-10-15 11:50] MED LIST changes: -BUMETANIDE 2.5mg/10ml (0.25 mg/ml) INJ IV ONE; -BUMETANIDE INJECTION 10 ML ONE; -DOPamine 1600MCG/ML D5W 250 ML IV ONE; -FURO1TAB33 PO; -LINA5TAB PO; -LORA-655 PO; -POTASSIUM CHL 20 Meq TABLET PO ONE
== END 2022-10-15 16:04 | disposition home or self-care (01) ==
LOC: CATH 11:50
PROVIDERS: ATTEND Internal Medicine Cardiovascular Disease
DX: J90 Pleural effusion, not elsewhere classified (principal)
CPT/HCPCS: 32555; 71045; 76604; C1729; 76942

== ENCOUNTER → 2022-10-16 | Outpatient (CLI) | payer MEDICARE ==
[2022-10-16] VITALS (9 sets, daily range): BP systolic 92–107; BP diastolic 36–42
[~2022-10-16] MED LIST changes: +DOPamine 1600MCG/ML D5W 250 ML IV ONE
== END | disposition home or self-care (01) ==
LOC: CHF HDHVI 09:01
PROVIDERS: ATTEND Internal Medicine Cardiovascular Disease
DX: I13.0 Hypertensive heart and chronic kidney disease with heart failure and stage 1 through stage 4 chronic kidney disease, or unspecified chronic kidney disease (principal); E11.22 Type 2 diabetes mellitus with diabetic chronic kidney disease; I50.42 Chronic combined systolic (congestive) and diastolic (congestive) heart failure; N18.30 Chronic kidney disease, stage 3 unspecified; I25.10 Atherosclerotic heart disease of native coronary artery without angina pectoris; I25.2 Old myocardial infarction; I42.8 Other cardiomyopathies; E11.40 Type 2 diabetes mellitus with diabetic neuropathy, unspecified; E11.51 Type 2 diabetes mellitus with diabetic peripheral angiopathy without gangrene; E78.00 Pure hypercholesterolemia, unspecified
CPT/HCPCS: 96365; 96366; G0463; J1265

== ENCOUNTER → 2022-10-18 | Outpatient (CLI) | payer MEDICARE ==
[~2022-10-18] MED LIST changes: -DOPamine 1600MCG/ML D5W 250 ML IV ONE
[2022-10-18 12:51] LABS: Basophils # (auto) 0.1 10 ^3/uL (0-0.2); Basophils % (auto) 1.8 % (0.0-2.0); Eosinophils # (auto) 0.2 10 ^3/uL (0-0.8); Eosinophils % (auto) 4.1 % (0.0-7.0); Hematocrit 27.7 % (41.0-53.0); Hemoglobin 9.1 g/dL (13.5-17.5); Lymphocytes # (auto) 1.1 10 ^3/uL (0.4-5.4); Lymphocytes % (auto) 24.4 % (10.0-50.0); Mean Corpuscular Hemoglobin 31.5 pg (28.0-32.0); Mean Corpuscular Hgb Conc. 32.9 g/dL (32.0-36.0); Mean Corpuscular Volume 95.8 fL (80.0-100.0); Monocytes # (auto) 0.2 10 ^3/uL (0-1.3); Monocytes % (auto) 5.6 % (0.0-12.0); Neutrophils # (auto) 2.8 10 ^3/uL (1.6-8.6); Neutrophils % (auto) 64.1 % (37.0-80.0); Nucleated Red Blood Cells % 0.1 %; Red Blood Cells 2.89 10^6/uL (4.5-5.90); Red Cell Distribution Width 16.7 % (11.8-14.3); White Blood Cell 4.4 10^3/uL (4.4-10.8)
[2022-10-18 13:17] LABS: Albumin 3.9 g/dL (3.4-5.0); Calcium 9.1 mg/dL (8.5-10.1); Potassium 5.5 mmol/L (3.5-5.1)
[2022-10-18 13:22] LABS: BUN/Creatinine Ratio 21.1 (10.0-20.0); Bilirubin, Total 0.6 mg/dL (0.2-1.0); Total Protein 8.1 g/dL (6.4-8.2)
== END | disposition home or self-care (01) ==
LOC: LAB 12:33
PROVIDERS: ATTEND Internal Medicine Cardiovascular Disease
DX: I50.23 Acute on chronic systolic (congestive) heart failure (principal); I25.5 Ischemic cardiomyopathy
CPT/HCPCS: 36415; 80053; 83735; 83880; 85025

== ENCOUNTER → 2022-10-18 | Outpatient (CLI) | payer MEDICARE ==
[2022-10-18] VITALS (9 sets, daily range): BP systolic 101–116; BP diastolic 37–51
[~2022-10-18] VITALS: Ht 33 cm; Wt 63.6 kg
[~2022-10-18] MED LIST changes: +DOPamine 1600MCG/ML D5W 250 ML IV ONE
== END | disposition home or self-care (01) ==
LOC: CHF HDHVI 08:47
PROVIDERS: ATTEND Internal Medicine Cardiovascular Disease
DX: I13.0 Hypertensive heart and chronic kidney disease with heart failure and stage 1 through stage 4 chronic kidney disease, or unspecified chronic kidney disease (principal); E11.22 Type 2 diabetes mellitus with diabetic chronic kidney disease; N18.30 Chronic kidney disease, stage 3 unspecified; I50.42 Chronic combined systolic (congestive) and diastolic (congestive) heart failure; I42.0 Dilated cardiomyopathy; I25.5 Ischemic cardiomyopathy; I25.10 Atherosclerotic heart disease of native coronary artery without angina pectoris; I25.2 Old myocardial infarction; E78.00 Pure hypercholesterolemia, unspecified; E11.40 Type 2 diabetes mellitus with diabetic neuropathy, unspecified; E11.51 Type 2 diabetes mellitus with diabetic peripheral angiopathy without gangrene; E11.21 Type 2 diabetes mellitus with diabetic nephropathy; Z95.810 Presence of automatic (implantable) cardiac defibrillator
CPT/HCPCS: 96365; 96366; G0463; J1265

== ENCOUNTER → 2022-10-23 | Outpatient (CLI) | payer MEDICARE ==
[2022-10-23] VITALS (9 sets, daily range): BP systolic 104–112; BP diastolic 41–49
[~2022-10-23] MED LIST changes: +CYANOCOBALAMIN (B-12) 1000 MCG/1 ML VIAL IM ONE; +CYANOCOBALAMIN (B-12) 1000 MCG/1 ML VIAL ONE; +SODIUM FERR GLUC 62.5MG/5ML 125 MG in SODIUM CHL 0.9% 100 ML IV ONE; +SODIUM FERRIC GLUC CPLEX 62.5MG/5ML VIAL IV ONE
== END | disposition home or self-care (01) ==
LOC: CHF HDHVI 08:42
PROVIDERS: ATTEND Internal Medicine Cardiovascular Disease
DX: I13.0 Hypertensive heart and chronic kidney disease with heart failure and stage 1 through stage 4 chronic kidney disease, or unspecified chronic kidney disease (principal); E11.22 Type 2 diabetes mellitus with diabetic chronic kidney disease; I50.42 Chronic combined systolic (congestive) and diastolic (congestive) heart failure; N18.30 Chronic kidney disease, stage 3 unspecified; I25.10 Atherosclerotic heart disease of native coronary artery without angina pectoris; I25.2 Old myocardial infarction; I42.8 Other cardiomyopathies; E11.51 Type 2 diabetes mellitus with diabetic peripheral angiopathy without gangrene; E11.40 Type 2 diabetes mellitus with diabetic neuropathy, unspecified; E78.00 Pure hypercholesterolemia, unspecified; Z95.810 Presence of automatic (implantable) cardiac defibrillator
CPT/HCPCS: 96365; 96366; 96367; 96372; G0463; J1265; J2916; J3420

== ENCOUNTER → 2022-10-25 | Outpatient (CLI) | payer MEDICARE ==
[~2022-10-25] MED LIST changes: -CYANOCOBALAMIN (B-12) 1000 MCG/1 ML VIAL IM ONE; -CYANOCOBALAMIN (B-12) 1000 MCG/1 ML VIAL ONE; -DOPamine 1600MCG/ML D5W 250 ML IV ONE; -SODIUM FERR GLUC 62.5MG/5ML 125 MG in SODIUM CHL 0.9% 100 ML IV ONE; -SODIUM FERRIC GLUC CPLEX 62.5MG/5ML VIAL IV ONE
[2022-10-25 12:50] LABS: Albumin 3.9 g/dL (3.4-5.0); Calcium 9.3 mg/dL (8.5-10.1); Magnesium 2.7 mg/dL (1.6-2.6)
[2022-10-25 12:53] LABS: BUN/Creatinine Ratio 20.8 (10.0-20.0); Bilirubin, Total 0.6 mg/dL (0.2-1.0)
== END | disposition home or self-care (01) ==
LOC: LAB 12:02
PROVIDERS: ATTEND Internal Medicine Cardiovascular Disease
DX: I50.43 Acute on chronic combined systolic (congestive) and diastolic (congestive) heart failure (principal)
CPT/HCPCS: 36415; 80053; 83735; 83880

== ENCOUNTER → 2022-10-25 | Outpatient (CLI) | payer MEDICARE ==
[2022-10-25] VITALS (9 sets, daily range): BP systolic 105–121; BP diastolic 46–91
[~2022-10-25] MED LIST changes: +DOPamine 1600MCG/ML D5W 250 ML IV ONE
== END | disposition home or self-care (01) ==
LOC: CHF HDHVI 08:21
PROVIDERS: ATTEND Internal Medicine Cardiovascular Disease
DX: I13.0 Hypertensive heart and chronic kidney disease with heart failure and stage 1 through stage 4 chronic kidney disease, or unspecified chronic kidney disease (principal); E11.22 Type 2 diabetes mellitus with diabetic chronic kidney disease; N18.30 Chronic kidney disease, stage 3 unspecified; I50.43 Acute on chronic combined systolic (congestive) and diastolic (congestive) heart failure; I25.10 Atherosclerotic heart disease of native coronary artery without angina pectoris; I25.2 Old myocardial infarction; E78.00 Pure hypercholesterolemia, unspecified; I42.0 Dilated cardiomyopathy; E11.40 Type 2 diabetes mellitus with diabetic neuropathy, unspecified; E11.51 Type 2 diabetes mellitus with diabetic peripheral angiopathy without gangrene; Z95.0 Presence of cardiac pacemaker
CPT/HCPCS: 96365; 96366; G0463; J1265

== ENCOUNTER → 2022-10-30 | Outpatient (CLI) | payer MEDICARE ==
[2022-10-30] VITALS (9 sets, daily range): BP systolic 104–117; BP diastolic 44–51
[~2022-10-30] MED LIST changes: +BUMETANIDE 1mg/4ml VIAL (0.25mg/ml) ONE; +BUMETANIDE 2.5mg/10ml (0.25 mg/ml) INJ IV ONE; +DOPamine 1600MCG/ML D5W 0 ML IV ONE; +LORazepam 2MG/ML-1ML VIAL ONE
== END | disposition home or self-care (01) ==
LOC: CHF HDHVI 08:22
PROVIDERS: ATTEND Internal Medicine Cardiovascular Disease
DX: I13.0 Hypertensive heart and chronic kidney disease with heart failure and stage 1 through stage 4 chronic kidney disease, or unspecified chronic kidney disease (principal); E11.22 Type 2 diabetes mellitus with diabetic chronic kidney disease; I50.42 Chronic combined systolic (congestive) and diastolic (congestive) heart failure; N18.30 Chronic kidney disease, stage 3 unspecified; I25.5 Ischemic cardiomyopathy; I25.10 Atherosclerotic heart disease of native coronary artery without angina pectoris; I25.2 Old myocardial infarction; E11.40 Type 2 diabetes mellitus with diabetic neuropathy, unspecified; E11.51 Type 2 diabetes mellitus with diabetic peripheral angiopathy without gangrene; E78.00 Pure hypercholesterolemia, unspecified; Z95.810 Presence of automatic (implantable) cardiac defibrillator
CPT/HCPCS: 96365; 96366; 96375; G0463; J1265; J3490

== ENCOUNTER → 2022-11-01 | Outpatient (CLI) | payer MEDICARE ==
[2022-11-01] VITALS (9 sets, daily range): BP systolic 109–116; BP diastolic 43–53
[~2022-11-01] MED LIST changes: -BUMETANIDE 1mg/4ml VIAL (0.25mg/ml) ONE; -BUMETANIDE 2.5mg/10ml (0.25 mg/ml) INJ IV ONE; -DOPamine 1600MCG/ML D5W 0 ML IV ONE; -LORazepam 2MG/ML-1ML VIAL ONE; +SODIUM FERR GLUC 62.5MG/5ML 125 MG in SODIUM CHL 0.9% 100 ML IV ONE; +SODIUM FERRIC GLUC CPLEX 62.5MG/5ML VIAL IV ONE; +TESTOSTERONE CYPIONATE 200 MG/ML 1ML VIAL IM ONE
== END | disposition home or self-care (01) ==
LOC: CHF HDHVI 08:15
PROVIDERS: ATTEND Internal Medicine Cardiovascular Disease
DX: I13.0 Hypertensive heart and chronic kidney disease with heart failure and stage 1 through stage 4 chronic kidney disease, or unspecified chronic kidney disease (principal); E11.22 Type 2 diabetes mellitus with diabetic chronic kidney disease; N18.30 Chronic kidney disease, stage 3 unspecified; I50.42 Chronic combined systolic (congestive) and diastolic (congestive) heart failure; D64.9 Anemia, unspecified; E29.1 Testicular hypofunction; I25.10 Atherosclerotic heart disease of native coronary artery without angina pectoris; I25.2 Old myocardial infarction; E11.40 Type 2 diabetes mellitus with diabetic neuropathy, unspecified; E11.51 Type 2 diabetes mellitus with diabetic peripheral angiopathy without gangrene; E11.21 Type 2 diabetes mellitus with diabetic nephropathy; Z95.0 Presence of cardiac pacemaker
CPT/HCPCS: 96365; 96366; 96367; 96372; G0463; J1071; J1265; J2916

== ENCOUNTER → 2022-11-06 | Outpatient (CLI) | payer MEDICARE ==
[2022-11-06] VITALS (9 sets, daily range): BP systolic 106–119; BP diastolic 43–55
[~2022-11-06] MED LIST changes: -SODIUM FERR GLUC 62.5MG/5ML 125 MG in SODIUM CHL 0.9% 100 ML IV ONE; -SODIUM FERRIC GLUC CPLEX 62.5MG/5ML VIAL IV ONE; -TESTOSTERONE CYPIONATE 200 MG/ML 1ML VIAL IM ONE
== END | disposition home or self-care (01) ==
LOC: CHF HDHVI 08:49
PROVIDERS: ATTEND Internal Medicine Cardiovascular Disease
DX: I13.0 Hypertensive heart and chronic kidney disease with heart failure and stage 1 through stage 4 chronic kidney disease, or unspecified chronic kidney disease (principal); E11.22 Type 2 diabetes mellitus with diabetic chronic kidney disease; N18.30 Chronic kidney disease, stage 3 unspecified; I50.42 Chronic combined systolic (congestive) and diastolic (congestive) heart failure; I25.5 Ischemic cardiomyopathy; I25.10 Atherosclerotic heart disease of native coronary artery without angina pectoris; I25.2 Old myocardial infarction; E78.00 Pure hypercholesterolemia, unspecified; E11.40 Type 2 diabetes mellitus with diabetic neuropathy, unspecified; E11.51 Type 2 diabetes mellitus with diabetic peripheral angiopathy without gangrene; Z95.0 Presence of cardiac pacemaker
CPT/HCPCS: 96365; 96366; G0463; J1265

== ENCOUNTER → 2022-11-08 | Outpatient (CLI) | payer MEDICARE ==
[~2022-11-08] MED LIST changes: -DOPamine 1600MCG/ML D5W 250 ML IV ONE
[2022-11-08 12:13] LABS: Basophils # (auto) 0.1 10 ^3/uL (0-0.2); Basophils % (auto) 1.1 % (0.0-2.0); Eosinophils # (auto) 0.2 10 ^3/uL (0-0.8); Eosinophils % (auto) 3.2 % (0.0-7.0); Hematocrit 30.2 % (41.0-53.0); Lymphocytes # (auto) 1.2 10 ^3/uL (0.4-5.4); Lymphocytes % (auto) 23.7 % (10.0-50.0); Mean Corpuscular Hemoglobin 32.1 pg (28.0-32.0); Mean Corpuscular Hgb Conc. 33.2 g/dL (32.0-36.0); Mean Corpuscular Volume 96.9 fL (80.0-100.0); Monocytes # (auto) 0.3 10 ^3/uL (0-1.3); Monocytes % (auto) 6.3 % (0.0-12.0); Neutrophils # (auto) 3.3 10 ^3/uL (1.6-8.6); Neutrophils % (auto) 65.7 % (37.0-80.0); Red Blood Cells 3.12 10^6/uL (4.5-5.90); Red Cell Distribution Width 17.6 % (11.8-14.3); White Blood Cell 4.9 10^3/uL (4.4-10.8)
[2022-11-08 12:43] LABS: Albumin 3.9 g/dL (3.4-5.0); Calcium 8.7 mg/dL (8.5-10.1); Magnesium 2.8 mg/dL (1.6-2.6)
[2022-11-08 12:48] LABS: BUN/Creatinine Ratio 19.4 (10.0-20.0); Bilirubin, Total 0.8 mg/dL (0.2-1.0); Total Protein 7.9 g/dL (6.4-8.2)
== END | disposition home or self-care (01) ==
LOC: LAB 11:54
PROVIDERS: ATTEND Internal Medicine Cardiovascular Disease
DX: I50.23 Acute on chronic systolic (congestive) heart failure (principal)
CPT/HCPCS: 36415; 80053; 83735; 83880; 85025

== ENCOUNTER → 2022-11-13 | Outpatient (CLI) | payer MEDICARE ==
[2022-11-13] VITALS (9 sets, daily range): BP systolic 101–116; BP diastolic 38–49
[~2022-11-13] MED LIST changes: +DOPamine 1600MCG/ML D5W 250 ML IV ONE
== END | disposition home or self-care (01) ==
LOC: CHF HDHVI 08:28
PROVIDERS: ATTEND Internal Medicine Cardiovascular Disease
DX: I25.5 Ischemic cardiomyopathy (principal); R06.02 Shortness of breath; I13.0 Hypertensive heart and chronic kidney disease with heart failure and stage 1 through stage 4 chronic kidney disease, or unspecified chronic kidney disease; E11.22 Type 2 diabetes mellitus with diabetic chronic kidney disease; I50.42 Chronic combined systolic (congestive) and diastolic (congestive) heart failure; N18.30 Chronic kidney disease, stage 3 unspecified; I25.10 Atherosclerotic heart disease of native coronary artery without angina pectoris; I25.2 Old myocardial infarction; E11.40 Type 2 diabetes mellitus with diabetic neuropathy, unspecified; E11.51 Type 2 diabetes mellitus with diabetic peripheral angiopathy without gangrene; Z95.810 Presence of automatic (implantable) cardiac defibrillator
CPT/HCPCS: 94618; 96365; 96366; G0463; J1265

== ENCOUNTER → 2022-11-15 | Outpatient (CLI) | payer MEDICARE ==
[2022-11-15] VITALS (9 sets, daily range): BP systolic 91–117; BP diastolic 35–50
== END | disposition home or self-care (01) ==
LOC: CHF HDHVI 08:26
PROVIDERS: ATTEND Internal Medicine Cardiovascular Disease
DX: I13.0 Hypertensive heart and chronic kidney disease with heart failure and stage 1 through stage 4 chronic kidney disease, or unspecified chronic kidney disease (principal); E11.22 Type 2 diabetes mellitus with diabetic chronic kidney disease; N18.30 Chronic kidney disease, stage 3 unspecified; I50.23 Acute on chronic systolic (congestive) heart failure; I25.5 Ischemic cardiomyopathy; I25.10 Atherosclerotic heart disease of native coronary artery without angina pectoris; I25.2 Old myocardial infarction; E78.00 Pure hypercholesterolemia, unspecified; E11.40 Type 2 diabetes mellitus with diabetic neuropathy, unspecified; E11.51 Type 2 diabetes mellitus with diabetic peripheral angiopathy without gangrene; E11.21 Type 2 diabetes mellitus with diabetic nephropathy; Z95.0 Presence of cardiac pacemaker
CPT/HCPCS: 96365; 96366; G0463; J1265

== ENCOUNTER → 2022-11-20 | Outpatient (CLI) | payer MEDICARE ==
[2022-11-20] VITALS (9 sets, daily range): BP systolic 102–123; BP diastolic 38–55
[~2022-11-20] MED LIST changes: +CYANOCOBALAMIN (B-12) 1000 MCG/1 ML VIAL IM ONE; +CYANOCOBALAMIN (B-12) 1000 MCG/1 ML VIAL ONE
== END | disposition home or self-care (01) ==
LOC: CHF HDHVI 08:26
PROVIDERS: ATTEND Internal Medicine Cardiovascular Disease
DX: I13.0 Hypertensive heart and chronic kidney disease with heart failure and stage 1 through stage 4 chronic kidney disease, or unspecified chronic kidney disease (principal); E11.22 Type 2 diabetes mellitus with diabetic chronic kidney disease; N18.30 Chronic kidney disease, stage 3 unspecified; I50.42 Chronic combined systolic (congestive) and diastolic (congestive) heart failure; I25.5 Ischemic cardiomyopathy; D64.9 Anemia, unspecified; I25.10 Atherosclerotic heart disease of native coronary artery without angina pectoris; I25.2 Old myocardial infarction; E78.00 Pure hypercholesterolemia, unspecified; E11.40 Type 2 diabetes mellitus with diabetic neuropathy, unspecified; E11.51 Type 2 diabetes mellitus with diabetic peripheral angiopathy without gangrene; Z95.0 Presence of cardiac pacemaker
CPT/HCPCS: 96365; 96366; 96372; G0463; J1265; J3420

== ENCOUNTER → 2022-11-22 | Outpatient (CLI) | payer MEDICARE ==
[~2022-11-22] VITALS: Ht 30.5 cm; Wt 61.7 kg
[2022-11-22] VITALS (9 sets, daily range): BP systolic 111–127; BP diastolic 38–58
[~2022-11-22] MED LIST changes: -CYANOCOBALAMIN (B-12) 1000 MCG/1 ML VIAL IM ONE; -CYANOCOBALAMIN (B-12) 1000 MCG/1 ML VIAL ONE; +GABA-1250 PO; -GABA300C10 PO; -TAM04C PO; +TAMS-35 PO
== END | disposition home or self-care (01) ==
LOC: Rad HDHVI 08:00
PROVIDERS: ATTEND Internal Medicine Cardiovascular Disease
DX: I13.0 Hypertensive heart and chronic kidney disease with heart failure and stage 1 through stage 4 chronic kidney disease, or unspecified chronic kidney disease (principal); E11.22 Type 2 diabetes mellitus with diabetic chronic kidney disease; N18.30 Chronic kidney disease, stage 3 unspecified; I50.23 Acute on chronic systolic (congestive) heart failure; I25.5 Ischemic cardiomyopathy; I25.10 Atherosclerotic heart disease of native coronary artery without angina pectoris; I25.2 Old myocardial infarction; I48.0 Paroxysmal atrial fibrillation; E78.00 Pure hypercholesterolemia, unspecified; E11.40 Type 2 diabetes mellitus with diabetic neuropathy, unspecified; E11.51 Type 2 diabetes mellitus with diabetic peripheral angiopathy without gangrene; Z95.0 Presence of cardiac pacemaker
CPT/HCPCS: 93306; 96365; 96366; G0463; J1265

== ENCOUNTER → 2022-11-22 | Outpatient (CLI) | payer BC ==
[~2022-11-22] MED LIST changes: -DOPamine 1600MCG/ML D5W 250 ML IV ONE; -GABA-1250 PO; +GABA300C10 PO; +TAM04C PO; -TAMS-35 PO
[2022-11-22 12:40] LABS: Basophils # (auto) 0 10 ^3/uL (0-0.2); Basophils % (auto) 0.9 % (0.0-2.0); Eosinophils # (auto) 0.1 10 ^3/uL (0-0.8); Eosinophils % (auto) 2.5 % (0.0-7.0); Hematocrit 31.2 % (41.0-53.0); Hemoglobin 10.5 g/dL (13.5-17.5); Lymphocytes % (auto) 20.8 % (10.0-50.0); Mean Corpuscular Hemoglobin 32.8 pg (28.0-32.0); Mean Corpuscular Hgb Conc. 33.5 g/dL (32.0-36.0); Monocytes # (auto) 0.2 10 ^3/uL (0-1.3); Monocytes % (auto) 5.3 % (0.0-12.0); Neutrophils # (auto) 3.3 10 ^3/uL (1.6-8.6); Neutrophils % (auto) 70.5 % (37.0-80.0); Nucleated Red Blood Cells % 0.1 %; Red Blood Cells 3.19 10^6/uL (4.5-5.90); Red Cell Distribution Width 18.1 % (11.8-14.3); White Blood Cell 4.7 10^3/uL (4.4-10.8)
[2022-11-22 13:02] LABS: Albumin 4.1 g/dL (3.4-5.0); Calcium 8.8 mg/dL (8.5-10.1); Magnesium 2.9 mg/dL (1.6-2.6); Potassium 4.8 mmol/L (3.5-5.1)
[2022-11-22 13:05] LABS: Bilirubin, Total 0.7 mg/dL (0.2-1.0); Total Protein 8.1 g/dL (6.4-8.2)
== END | disposition home or self-care (01) ==
LOC: LAB 12:11
PROVIDERS: ATTEND Internal Medicine Cardiovascular Disease
DX: E11.9 Type 2 diabetes mellitus without complications (principal); I50.23 Acute on chronic systolic (congestive) heart failure
CPT/HCPCS: 36415; 80053; 83036; 83735; 83880; 85025

== ENCOUNTER → 2022-11-27 | Outpatient (CLI) | payer BC ==
[2022-11-27] VITALS (9 sets, daily range): BP systolic 106–120; BP diastolic 33–55
[~2022-11-27] MED LIST changes: +BUMETANIDE 2.5mg/10ml (0.25 mg/ml) INJ IV ONE; +BUMETANIDE INJECTION 10 ML ONE; +DOPamine 1600MCG/ML D5W 250 ML IV ONE; +GABA-1250 PO; -GABA300C10 PO; -TAM04C PO; +TAMS-35 PO
== END | disposition home or self-care (01) ==
LOC: CHF HDHVI 08:28
PROVIDERS: ATTEND Internal Medicine Cardiovascular Disease
DX: I13.0 Hypertensive heart and chronic kidney disease with heart failure and stage 1 through stage 4 chronic kidney disease, or unspecified chronic kidney disease (principal); E11.22 Type 2 diabetes mellitus with diabetic chronic kidney disease; N18.30 Chronic kidney disease, stage 3 unspecified; I50.42 Chronic combined systolic (congestive) and diastolic (congestive) heart failure; I25.5 Ischemic cardiomyopathy; I25.10 Atherosclerotic heart disease of native coronary artery without angina pectoris; I25.2 Old myocardial infarction; E78.00 Pure hypercholesterolemia, unspecified; E11.40 Type 2 diabetes mellitus with diabetic neuropathy, unspecified; E11.51 Type 2 diabetes mellitus with diabetic peripheral angiopathy without gangrene; Z95.0 Presence of cardiac pacemaker
CPT/HCPCS: 96365; 96366; 96375; G0463; J1265

== ENCOUNTER → 2022-11-29 | Outpatient (CLI) | payer BC ==
[2022-11-29] VITALS (9 sets, daily range): BP systolic 106–125; BP diastolic 40–60
[~2022-11-29] MED LIST changes: -BUMETANIDE 2.5mg/10ml (0.25 mg/ml) INJ IV ONE; -BUMETANIDE INJECTION 10 ML ONE
== END | disposition home or self-care (01) ==
LOC: CHF HDHVI 08:13
PROVIDERS: ATTEND Internal Medicine Cardiovascular Disease
DX: I25.5 Ischemic cardiomyopathy (principal); I13.0 Hypertensive heart and chronic kidney disease with heart failure and stage 1 through stage 4 chronic kidney disease, or unspecified chronic kidney disease; E11.22 Type 2 diabetes mellitus with diabetic chronic kidney disease; I50.43 Acute on chronic combined systolic (congestive) and diastolic (congestive) heart failure; N18.30 Chronic kidney disease, stage 3 unspecified; R06.02 Shortness of breath; I25.10 Atherosclerotic heart disease of native coronary artery without angina pectoris; I25.2 Old myocardial infarction; E11.51 Type 2 diabetes mellitus with diabetic peripheral angiopathy without gangrene; E11.40 Type 2 diabetes mellitus with diabetic neuropathy, unspecified; E78.00 Pure hypercholesterolemia, unspecified; Z95.0 Presence of cardiac pacemaker
CPT/HCPCS: 96365; 96366; G0463; J1265

== ENCOUNTER → 2022-11-30 | Outpatient (CLI) | payer BC ==
[2022-11-30] VITALS (11 sets, daily range): BP systolic 88–117; BP diastolic 33–57
[~2022-11-30] MED LIST changes: +BUMETANIDE 1mg/4ml VIAL (0.25mg/ml) ONE; +BUMETANIDE 2.5mg/10ml (0.25 mg/ml) INJ IV ONE; +DOBUTamine 1000MCG/ML 250 ML IV ONE; -DOPamine 1600MCG/ML D5W 250 ML IV ONE
== END | disposition home or self-care (01) ==
LOC: CHF HDHVI 10:17
PROVIDERS: ATTEND Internal Medicine Cardiovascular Disease
DX: I13.0 Hypertensive heart and chronic kidney disease with heart failure and stage 1 through stage 4 chronic kidney disease, or unspecified chronic kidney disease (principal); E11.22 Type 2 diabetes mellitus with diabetic chronic kidney disease; I50.43 Acute on chronic combined systolic (congestive) and diastolic (congestive) heart failure; N18.30 Chronic kidney disease, stage 3 unspecified; I25.5 Ischemic cardiomyopathy; I25.10 Atherosclerotic heart disease of native coronary artery without angina pectoris; I25.2 Old myocardial infarction; E11.40 Type 2 diabetes mellitus with diabetic neuropathy, unspecified; E11.51 Type 2 diabetes mellitus with diabetic peripheral angiopathy without gangrene; E78.00 Pure hypercholesterolemia, unspecified; Z95.0 Presence of cardiac pacemaker
CPT/HCPCS: 96365; 96366; 96375; G0463; J1250; J3490

== ENCOUNTER → 2022-12-04 | Outpatient (CLI) | payer BC ==
[2022-12-04] VITALS (8 sets, daily range): BP systolic 95–108; BP diastolic 36–48
[~2022-12-04] MED LIST changes: -BUMETANIDE 1mg/4ml VIAL (0.25mg/ml) ONE; -BUMETANIDE 2.5mg/10ml (0.25 mg/ml) INJ IV ONE; -DOBUTamine 1000MCG/ML 250 ML IV ONE; +DOPamine 1600MCG/ML D5W 250 ML IV ONE
== END | disposition home or self-care (01) ==
LOC: CHF HDHVI 09:33
PROVIDERS: ATTEND Internal Medicine Cardiovascular Disease
DX: I13.0 Hypertensive heart and chronic kidney disease with heart failure and stage 1 through stage 4 chronic kidney disease, or unspecified chronic kidney disease (principal); E11.22 Type 2 diabetes mellitus with diabetic chronic kidney disease; I50.43 Acute on chronic combined systolic (congestive) and diastolic (congestive) heart failure; N18.30 Chronic kidney disease, stage 3 unspecified; I25.5 Ischemic cardiomyopathy; I25.10 Atherosclerotic heart disease of native coronary artery without angina pectoris; I25.2 Old myocardial infarction; E11.40 Type 2 diabetes mellitus with diabetic neuropathy, unspecified; E11.51 Type 2 diabetes mellitus with diabetic peripheral angiopathy without gangrene; E78.00 Pure hypercholesterolemia, unspecified; Z95.0 Presence of cardiac pacemaker
CPT/HCPCS: 96365; 96366; G0463; J1265

== ENCOUNTER → 2022-12-06 | Outpatient (CLI) | payer BC ==
[2022-12-06] VITALS (10 sets, daily range): BP systolic 98–121; BP diastolic 38–58
[~2022-12-06] VITALS: Ht 152.4 cm; Wt 62.6 kg
== END | disposition home or self-care (01) ==
LOC: CHF HDHVI 08:18
PROVIDERS: ATTEND Internal Medicine Cardiovascular Disease
DX: I13.0 Hypertensive heart and chronic kidney disease with heart failure and stage 1 through stage 4 chronic kidney disease, or unspecified chronic kidney disease (principal); E11.22 Type 2 diabetes mellitus with diabetic chronic kidney disease; I50.43 Acute on chronic combined systolic (congestive) and diastolic (congestive) heart failure; N18.30 Chronic kidney disease, stage 3 unspecified; I25.5 Ischemic cardiomyopathy; I25.10 Atherosclerotic heart disease of native coronary artery without angina pectoris; I25.2 Old myocardial infarction; I48.0 Paroxysmal atrial fibrillation; E11.51 Type 2 diabetes mellitus with diabetic peripheral angiopathy without gangrene; E11.40 Type 2 diabetes mellitus with diabetic neuropathy, unspecified; E78.00 Pure hypercholesterolemia, unspecified; Z95.0 Presence of cardiac pacemaker
CPT/HCPCS: 96365; 96366; G0463; J1265

== ENCOUNTER → 2022-12-11 | Outpatient (CLI) | payer BC ==
[~2022-12-11] MED LIST changes: -DOPamine 1600MCG/ML D5W 250 ML IV ONE
[2022-12-11 12:35] LABS: Basophils # (auto) 0 10 ^3/uL (0-0.2); Eosinophils # (auto) 0.1 10 ^3/uL (0-0.8); Eosinophils % (auto) 3.1 % (0.0-7.0); Hematocrit 29.7 % (41.0-53.0); Hemoglobin 9.8 g/dL (13.5-17.5); Lymphocytes # (auto) 0.9 10 ^3/uL (0.4-5.4); Lymphocytes % (auto) 24.1 % (10.0-50.0); Mean Corpuscular Hemoglobin 32.3 pg (28.0-32.0); Mean Corpuscular Hgb Conc. 32.9 g/dL (32.0-36.0); Mean Corpuscular Volume 98.2 fL (80.0-100.0); Monocytes # (auto) 0.2 10 ^3/uL (0-1.3); Monocytes % (auto) 4.5 % (0.0-12.0); Neutrophils # (auto) 2.6 10 ^3/uL (1.6-8.6); Neutrophils % (auto) 67.3 % (37.0-80.0); Red Blood Cells 3.03 10^6/uL (4.5-5.90); Red Cell Distribution Width 17.2 % (11.8-14.3); White Blood Cell 3.9 10^3/uL (4.4-10.8)
[2022-12-11 13:16] LABS: Albumin 3.8 g/dL (3.4-5.0); Calcium 8.4 mg/dL (8.5-10.1); Magnesium 3.1 mg/dL (1.6-2.6); Potassium 4.7 mmol/L (3.5-5.1)
[2022-12-11 13:20] LABS: BUN/Creatinine Ratio 23.2 (10.0-20.0); Bilirubin, Total 0.6 mg/dL (0.2-1.0); Total Protein 7.9 g/dL (6.4-8.2)
== END | disposition home or self-care (01) ==
LOC: LAB 12:17
PROVIDERS: ATTEND Internal Medicine Cardiovascular Disease
DX: I50.23 Acute on chronic systolic (congestive) heart failure (principal); D64.9 Anemia, unspecified
CPT/HCPCS: 36415; 80053; 83735; 83880; 85025

== ENCOUNTER → 2022-12-13 | Outpatient (CLI) | payer BC ==
[2022-12-13] VITALS (10 sets, daily range): BP systolic 110–125; BP diastolic 45–57
[~2022-12-13] MED LIST changes: +DOPamine 1600MCG/ML D5W 250 ML IV ONE
== END | disposition home or self-care (01) ==
LOC: CHF HDHVI 08:22
PROVIDERS: ATTEND Internal Medicine Cardiovascular Disease
DX: I13.0 Hypertensive heart and chronic kidney disease with heart failure and stage 1 through stage 4 chronic kidney disease, or unspecified chronic kidney disease (principal); E11.22 Type 2 diabetes mellitus with diabetic chronic kidney disease; I50.43 Acute on chronic combined systolic (congestive) and diastolic (congestive) heart failure; N18.30 Chronic kidney disease, stage 3 unspecified; I25.5 Ischemic cardiomyopathy; I25.10 Atherosclerotic heart disease of native coronary artery without angina pectoris; I25.2 Old myocardial infarction; I48.0 Paroxysmal atrial fibrillation; E11.40 Type 2 diabetes mellitus with diabetic neuropathy, unspecified; E11.51 Type 2 diabetes mellitus with diabetic peripheral angiopathy without gangrene; E78.00 Pure hypercholesterolemia, unspecified; Z95.810 Presence of automatic (implantable) cardiac defibrillator
CPT/HCPCS: 96365; 96366; G0463; J1265

== ENCOUNTER → 2022-12-18 | Outpatient (CLI) | payer BC ==
[2022-12-18] VITALS (10 sets, daily range): BP systolic 84–110; BP diastolic 33–53
[~2022-12-18] MED LIST changes: +BUMETANIDE 1mg/4ml VIAL (0.25mg/ml) ONE; +BUMETANIDE 2.5mg/10ml (0.25 mg/ml) INJ IV ONE; +CYANOCOBALAMIN (B-12) 1000 MCG/1 ML VIAL IM ONE; +CYANOCOBALAMIN (B-12) 1000 MCG/1 ML VIAL ONE
== END | disposition home or self-care (01) ==
LOC: CHF HDHVI 09:39
PROVIDERS: ATTEND Internal Medicine Cardiovascular Disease
DX: I13.0 Hypertensive heart and chronic kidney disease with heart failure and stage 1 through stage 4 chronic kidney disease, or unspecified chronic kidney disease (principal); E11.22 Type 2 diabetes mellitus with diabetic chronic kidney disease; I50.43 Acute on chronic combined systolic (congestive) and diastolic (congestive) heart failure; N18.30 Chronic kidney disease, stage 3 unspecified; I25.10 Atherosclerotic heart disease of native coronary artery without angina pectoris; I25.5 Ischemic cardiomyopathy; I25.2 Old myocardial infarction; I48.0 Paroxysmal atrial fibrillation; E11.40 Type 2 diabetes mellitus with diabetic neuropathy, unspecified; E11.51 Type 2 diabetes mellitus with diabetic peripheral angiopathy without gangrene; E78.00 Pure hypercholesterolemia, unspecified; Z95.810 Presence of automatic (implantable) cardiac defibrillator
CPT/HCPCS: 96365; 96366; 96372; 96375; G0463; J1265; J3420; J3490

== ENCOUNTER → 2022-12-20 | Outpatient (CLI) | payer BC ==
[2022-12-20] VITALS (10 sets, daily range): BP systolic 98–119; BP diastolic 34–56
[~2022-12-20] MED LIST changes: -BUMETANIDE 1mg/4ml VIAL (0.25mg/ml) ONE; -BUMETANIDE 2.5mg/10ml (0.25 mg/ml) INJ IV ONE; -CYANOCOBALAMIN (B-12) 1000 MCG/1 ML VIAL IM ONE; -CYANOCOBALAMIN (B-12) 1000 MCG/1 ML VIAL ONE
== END | disposition home or self-care (01) ==
LOC: CHF HDHVI 08:35
PROVIDERS: ATTEND Internal Medicine Cardiovascular Disease
DX: I13.0 Hypertensive heart and chronic kidney disease with heart failure and stage 1 through stage 4 chronic kidney disease, or unspecified chronic kidney disease (principal); E11.22 Type 2 diabetes mellitus with diabetic chronic kidney disease; N18.30 Chronic kidney disease, stage 3 unspecified; I50.43 Acute on chronic combined systolic (congestive) and diastolic (congestive) heart failure; I25.5 Ischemic cardiomyopathy; I95.9 Hypotension, unspecified; I25.10 Atherosclerotic heart disease of native coronary artery without angina pectoris; I25.2 Old myocardial infarction; I48.0 Paroxysmal atrial fibrillation; E78.00 Pure hypercholesterolemia, unspecified; E11.40 Type 2 diabetes mellitus with diabetic neuropathy, unspecified; E11.51 Type 2 diabetes mellitus with diabetic peripheral angiopathy without gangrene; Z95.0 Presence of cardiac pacemaker
CPT/HCPCS: 96365; 96366; G0463; J1265

== ENCOUNTER → 2022-12-25 | Outpatient (CLI) | payer BC, MEDICARE ==
[2022-12-25] VITALS (10 sets, daily range): BP systolic 104–130; BP diastolic 38–65
== END | disposition home or self-care (01) ==
LOC: CHF HDHVI 08:44
PROVIDERS: ATTEND Internal Medicine Cardiovascular Disease
DX: I13.0 Hypertensive heart and chronic kidney disease with heart failure and stage 1 through stage 4 chronic kidney disease, or unspecified chronic kidney disease (principal); E11.22 Type 2 diabetes mellitus with diabetic chronic kidney disease; I50.43 Acute on chronic combined systolic (congestive) and diastolic (congestive) heart failure; N18.30 Chronic kidney disease, stage 3 unspecified; I25.5 Ischemic cardiomyopathy; I25.10 Atherosclerotic heart disease of native coronary artery without angina pectoris; I25.2 Old myocardial infarction; I48.0 Paroxysmal atrial fibrillation; E11.51 Type 2 diabetes mellitus with diabetic peripheral angiopathy without gangrene; E11.40 Type 2 diabetes mellitus with diabetic neuropathy, unspecified; E78.00 Pure hypercholesterolemia, unspecified; Z95.810 Presence of automatic (implantable) cardiac defibrillator
CPT/HCPCS: 96365; 96366; G0463; J1265

== ENCOUNTER → 2022-12-27 | Outpatient (CLI) | payer BC ==
[2022-12-27] VITALS (9 sets, daily range): BP systolic 98–143; BP diastolic 38–54
== END | disposition home or self-care (01) ==
LOC: CHF HDHVI 08:22
PROVIDERS: ATTEND Internal Medicine Cardiovascular Disease
DX: I13.0 Hypertensive heart and chronic kidney disease with heart failure and stage 1 through stage 4 chronic kidney disease, or unspecified chronic kidney disease (principal); E11.22 Type 2 diabetes mellitus with diabetic chronic kidney disease; N18.30 Chronic kidney disease, stage 3 unspecified; I50.43 Acute on chronic combined systolic (congestive) and diastolic (congestive) heart failure; I25.5 Ischemic cardiomyopathy; I25.10 Atherosclerotic heart disease of native coronary artery without angina pectoris; I25.2 Old myocardial infarction; I48.0 Paroxysmal atrial fibrillation; E78.00 Pure hypercholesterolemia, unspecified; E11.40 Type 2 diabetes mellitus with diabetic neuropathy, unspecified; E11.51 Type 2 diabetes mellitus with diabetic peripheral angiopathy without gangrene; Z95.810 Presence of automatic (implantable) cardiac defibrillator
CPT/HCPCS: 96365; 96366; G0463; J1265

== ENCOUNTER → 2023-01-02 | Outpatient (CLI) | payer BC ==
[2023-01-02] VITALS (10 sets, daily range): BP systolic 91–121; BP diastolic 32–60
[~2023-01-02] MED LIST changes: +DOBUTamine 1000MCG/ML 0 ML IV ONE; +DOPamine 1600MCG/ML D5W 250 ML IV SCH
== END | disposition home or self-care (01) ==
LOC: CHF HDHVI 09:27
PROVIDERS: ATTEND Internal Medicine Cardiovascular Disease
DX: I13.0 Hypertensive heart and chronic kidney disease with heart failure and stage 1 through stage 4 chronic kidney disease, or unspecified chronic kidney disease (principal); E11.22 Type 2 diabetes mellitus with diabetic chronic kidney disease; I50.43 Acute on chronic combined systolic (congestive) and diastolic (congestive) heart failure; N18.30 Chronic kidney disease, stage 3 unspecified; I25.5 Ischemic cardiomyopathy; I25.10 Atherosclerotic heart disease of native coronary artery without angina pectoris; I25.2 Old myocardial infarction; I48.0 Paroxysmal atrial fibrillation; E11.40 Type 2 diabetes mellitus with diabetic neuropathy, unspecified; E11.51 Type 2 diabetes mellitus with diabetic peripheral angiopathy without gangrene; E78.00 Pure hypercholesterolemia, unspecified; Z95.810 Presence of automatic (implantable) cardiac defibrillator
CPT/HCPCS: 96365; 96366; G0463; J1265

== ENCOUNTER → 2023-01-04 | Outpatient (CLI) | payer BC ==
[~2023-01-04] MED LIST changes: -DOBUTamine 1000MCG/ML 0 ML IV ONE; -DOPamine 1600MCG/ML D5W 250 ML IV SCH
[2023-01-04 08:50] VITALS: BP 114/43
[2023-01-04 09:15] VITALS: BP 116/42
[2023-01-04 09:30] VITALS: BP 130/48
[2023-01-04 09:48] VITALS: BP 121/41
[2023-01-04 11:00] VITALS: BP 120/47
[2023-01-04 12:11] VITALS: BP 110/47
== END | disposition home or self-care (01) ==
LOC: CHF HDHVI 08:32
PROVIDERS: ATTEND Internal Medicine Cardiovascular Disease
DX: I13.0 Hypertensive heart and chronic kidney disease with heart failure and stage 1 through stage 4 chronic kidney disease, or unspecified chronic kidney disease (principal); E11.22 Type 2 diabetes mellitus with diabetic chronic kidney disease; I50.43 Acute on chronic combined systolic (congestive) and diastolic (congestive) heart failure; N18.30 Chronic kidney disease, stage 3 unspecified; I25.5 Ischemic cardiomyopathy; I25.10 Atherosclerotic heart disease of native coronary artery without angina pectoris; I25.2 Old myocardial infarction; I48.0 Paroxysmal atrial fibrillation; E11.40 Type 2 diabetes mellitus with diabetic neuropathy, unspecified; E11.51 Type 2 diabetes mellitus with diabetic peripheral angiopathy without gangrene; E78.00 Pure hypercholesterolemia, unspecified; Z95.810 Presence of automatic (implantable) cardiac defibrillator
CPT/HCPCS: 96365; 96366; G0463; J1265

== ENCOUNTER → 2023-01-07 | Outpatient (CLI) | payer BC ==
[~2023-01-07] MED LIST changes: -DOPamine 1600MCG/ML D5W 250 ML IV ONE
== END | disposition home or self-care (01) ==
LOC: Rad HDHVI 13:19
PROVIDERS: ATTEND Internal Medicine Cardiovascular Disease
DX: R06.02 Shortness of breath (principal)
CPT/HCPCS: 71046

== ENCOUNTER → 2023-01-08 | Outpatient (CLI) | payer BC ==
[2023-01-08 12:59] LABS: Basophils # (auto) 0 10 ^3/uL (0-0.2); Basophils % (auto) 0.9 % (0.0-2.0); Eosinophils # (auto) 0.2 10 ^3/uL (0-0.8); Hematocrit 31.8 % (41.0-53.0); Hemoglobin 10.6 g/dL (13.5-17.5); Lymphocytes # (auto) 1.3 10 ^3/uL (0.4-5.4); Lymphocytes % (auto) 28.7 % (10.0-50.0); Mean Corpuscular Hemoglobin 31.9 pg (28.0-32.0); Mean Corpuscular Hgb Conc. 33.2 g/dL (32.0-36.0); Mean Corpuscular Volume 96.2 fL (80.0-100.0); Monocytes # (auto) 0.3 10 ^3/uL (0-1.3); Monocytes % (auto) 6.5 % (0.0-12.0); Neutrophils # (auto) 2.6 10 ^3/uL (1.6-8.6); Neutrophils % (auto) 59.9 % (37.0-80.0); Nucleated Red Blood Cells % 0.1 %; Red Blood Cells 3.31 10^6/uL (4.5-5.90); Red Cell Distribution Width 15.7 % (11.8-14.3); White Blood Cell 4.4 10^3/uL (4.4-10.8)
[2023-01-08 13:35] LABS: Albumin 3.7 g/dL (3.4-5.0); Calcium 8.5 mg/dL (8.5-10.1); Magnesium 2.9 mg/dL (1.6-2.6); Potassium 4.6 mmol/L (3.5-5.1)
[2023-01-08 13:37] LABS: BUN/Creatinine Ratio 32.8 (10.0-20.0)
[2023-01-08 13:40] LABS: Bilirubin, Total 0.6 mg/dL (0.2-1.0); Total Protein 8.5 g/dL (6.4-8.2)
== END | disposition home or self-care (01) ==
LOC: LAB 12:29
PROVIDERS: ATTEND Internal Medicine Cardiovascular Disease
DX: I50.23 Acute on chronic systolic (congestive) heart failure (principal)
CPT/HCPCS: 36415; 80053; 83735; 83880; 85025

== ENCOUNTER → 2023-01-15 | Outpatient (CLI) | payer BC ==
[2023-01-15] VITALS (10 sets, daily range): BP systolic 93–122; BP diastolic 33–46; PULSE 60–71; RESP 18; O2SAT 95
[~2023-01-15] MED LIST changes: +DOPamine 1600MCG/ML D5W 250 ML IV ONE
== END | disposition home or self-care (01) ==
LOC: CHF HDHVI 08:28
PROVIDERS: ATTEND Internal Medicine Cardiovascular Disease
DX: I13.0 Hypertensive heart and chronic kidney disease with heart failure and stage 1 through stage 4 chronic kidney disease, or unspecified chronic kidney disease (principal); E11.22 Type 2 diabetes mellitus with diabetic chronic kidney disease; N18.30 Chronic kidney disease, stage 3 unspecified; I50.23 Acute on chronic systolic (congestive) heart failure; I25.5 Ischemic cardiomyopathy; I25.10 Atherosclerotic heart disease of native coronary artery without angina pectoris; I25.2 Old myocardial infarction; I48.0 Paroxysmal atrial fibrillation; E78.00 Pure hypercholesterolemia, unspecified; E11.40 Type 2 diabetes mellitus with diabetic neuropathy, unspecified; E11.51 Type 2 diabetes mellitus with diabetic peripheral angiopathy without gangrene; Z95.0 Presence of cardiac pacemaker
CPT/HCPCS: 96365; 96366; G0463; J1265

== ENCOUNTER → 2023-01-17 | Outpatient (CLI) | payer BC ==
[2023-01-17] VITALS (9 sets, daily range): BP systolic 93–121; BP diastolic 37–47; PULSE 60–68; RESP 16; O2SAT 96
== END | disposition home or self-care (01) ==
LOC: CHF HDHVI 08:07
PROVIDERS: ATTEND Internal Medicine Cardiovascular Disease
DX: I13.0 Hypertensive heart and chronic kidney disease with heart failure and stage 1 through stage 4 chronic kidney disease, or unspecified chronic kidney disease (principal); E11.22 Type 2 diabetes mellitus with diabetic chronic kidney disease; N18.30 Chronic kidney disease, stage 3 unspecified; I50.43 Acute on chronic combined systolic (congestive) and diastolic (congestive) heart failure; I25.5 Ischemic cardiomyopathy; I25.10 Atherosclerotic heart disease of native coronary artery without angina pectoris; I25.2 Old myocardial infarction; I48.0 Paroxysmal atrial fibrillation; E78.00 Pure hypercholesterolemia, unspecified; E11.40 Type 2 diabetes mellitus with diabetic neuropathy, unspecified; E11.51 Type 2 diabetes mellitus with diabetic peripheral angiopathy without gangrene; Z95.0 Presence of cardiac pacemaker
CPT/HCPCS: 96365; 96366; G0463; J1265

== ENCOUNTER → 2023-01-22 | Outpatient (CLI) | payer BC ==
[2023-01-22] VITALS (9 sets, daily range): BP systolic 89–127; BP diastolic 32–45; PULSE 60–73; RESP 16; O2SAT 94
== END | disposition home or self-care (01) ==
LOC: Rad HDHVI 08:53
PROVIDERS: ATTEND Internal Medicine Cardiovascular Disease
DX: I13.0 Hypertensive heart and chronic kidney disease with heart failure and stage 1 through stage 4 chronic kidney disease, or unspecified chronic kidney disease (principal); E11.22 Type 2 diabetes mellitus with diabetic chronic kidney disease; N18.30 Chronic kidney disease, stage 3 unspecified; I50.23 Acute on chronic systolic (congestive) heart failure; I25.5 Ischemic cardiomyopathy; I25.10 Atherosclerotic heart disease of native coronary artery without angina pectoris; I25.2 Old myocardial infarction; I48.0 Paroxysmal atrial fibrillation; E78.00 Pure hypercholesterolemia, unspecified; E11.40 Type 2 diabetes mellitus with diabetic neuropathy, unspecified; E11.51 Type 2 diabetes mellitus with diabetic peripheral angiopathy without gangrene; Z95.810 Presence of automatic (implantable) cardiac defibrillator
CPT/HCPCS: 93306; 96365; 96366; G0463; J1265

== ENCOUNTER → 2023-01-24 | Outpatient (CLI) | payer BC ==
[2023-01-24] VITALS (10 sets, daily range): BP systolic 96–116; BP diastolic 35–47; PULSE 59–73; RESP 16; O2SAT 97
== END | disposition home or self-care (01) ==
LOC: CHF HDHVI 08:39
PROVIDERS: ATTEND Internal Medicine Cardiovascular Disease
DX: I13.0 Hypertensive heart and chronic kidney disease with heart failure and stage 1 through stage 4 chronic kidney disease, or unspecified chronic kidney disease (principal); E11.22 Type 2 diabetes mellitus with diabetic chronic kidney disease; N18.30 Chronic kidney disease, stage 3 unspecified; I50.43 Acute on chronic combined systolic (congestive) and diastolic (congestive) heart failure; I25.5 Ischemic cardiomyopathy; I25.10 Atherosclerotic heart disease of native coronary artery without angina pectoris; I25.2 Old myocardial infarction; I48.0 Paroxysmal atrial fibrillation; E78.00 Pure hypercholesterolemia, unspecified; E11.40 Type 2 diabetes mellitus with diabetic neuropathy, unspecified; E11.51 Type 2 diabetes mellitus with diabetic peripheral angiopathy without gangrene; Z95.0 Presence of cardiac pacemaker
CPT/HCPCS: 96365; 96366; G0463; J1265

== ENCOUNTER → 2023-01-29 | Outpatient (CLI) | payer BC ==
[2023-01-29] VITALS (10 sets, daily range): BP systolic 96–128; BP diastolic 34–48; PULSE 60–71; RESP 16; O2SAT 97
== END | disposition home or self-care (01) ==
LOC: CHF HDHVI 08:17
PROVIDERS: ATTEND Internal Medicine Cardiovascular Disease
DX: I13.0 Hypertensive heart and chronic kidney disease with heart failure and stage 1 through stage 4 chronic kidney disease, or unspecified chronic kidney disease (principal); E11.22 Type 2 diabetes mellitus with diabetic chronic kidney disease; N18.30 Chronic kidney disease, stage 3 unspecified; I50.43 Acute on chronic combined systolic (congestive) and diastolic (congestive) heart failure; I25.5 Ischemic cardiomyopathy; I25.10 Atherosclerotic heart disease of native coronary artery without angina pectoris; I25.2 Old myocardial infarction; I48.0 Paroxysmal atrial fibrillation; E78.00 Pure hypercholesterolemia, unspecified; E11.40 Type 2 diabetes mellitus with diabetic neuropathy, unspecified; E11.51 Type 2 diabetes mellitus with diabetic peripheral angiopathy without gangrene; Z95.0 Presence of cardiac pacemaker
CPT/HCPCS: 96365; 96366; G0463; J1265

== ENCOUNTER → 2023-01-31 | Outpatient (CLI) | payer BC ==
[~2023-01-31] VITALS: Ht 30.5 cm; Wt 59.0 kg
[2023-01-31] VITALS (10 sets, daily range): BP systolic 85–126; BP diastolic 35–46; PULSE 60–69; RESP 16; O2SAT 96
== END | disposition home or self-care (01) ==
LOC: CHF HDHVI 08:11
PROVIDERS: ATTEND Internal Medicine Cardiovascular Disease
DX: I13.0 Hypertensive heart and chronic kidney disease with heart failure and stage 1 through stage 4 chronic kidney disease, or unspecified chronic kidney disease (principal); E11.22 Type 2 diabetes mellitus with diabetic chronic kidney disease; I50.43 Acute on chronic combined systolic (congestive) and diastolic (congestive) heart failure; N18.30 Chronic kidney disease, stage 3 unspecified; I25.10 Atherosclerotic heart disease of native coronary artery without angina pectoris; I25.5 Ischemic cardiomyopathy; I25.2 Old myocardial infarction; I48.0 Paroxysmal atrial fibrillation; E11.40 Type 2 diabetes mellitus with diabetic neuropathy, unspecified; E11.51 Type 2 diabetes mellitus with diabetic peripheral angiopathy without gangrene; E78.00 Pure hypercholesterolemia, unspecified; Z95.810 Presence of automatic (implantable) cardiac defibrillator
CPT/HCPCS: 96365; 96366; G0463; J1265

== ENCOUNTER → 2023-02-05 | Outpatient (CLI) | payer BC ==
[~2023-02-05] MED LIST changes: -DOPamine 1600MCG/ML D5W 250 ML IV ONE
[2023-02-05 13:29] LABS: Basophils # (auto) 0 10 ^3/uL (0-0.2); Basophils % (auto) 0.7 % (0.0-2.0); Eosinophils # (auto) 0.1 10 ^3/uL (0-0.8); Eosinophils % (auto) 2.5 % (0.0-7.0); Hematocrit 30.7 % (41.0-53.0); Hemoglobin 10.4 g/dL (13.5-17.5); Lymphocytes # (auto) 1.3 10 ^3/uL (0.4-5.4); Lymphocytes % (auto) 24.9 % (10.0-50.0); Mean Corpuscular Hemoglobin 32.7 pg (28.0-32.0); Mean Corpuscular Volume 96.4 fL (80.0-100.0); Monocytes # (auto) 0.3 10 ^3/uL (0-1.3); Monocytes % (auto) 5.6 % (0.0-12.0); Neutrophils # (auto) 3.5 10 ^3/uL (1.6-8.6); Neutrophils % (auto) 66.3 % (37.0-80.0); Red Blood Cells 3.19 10^6/uL (4.5-5.90); Red Cell Distribution Width 14.7 % (11.8-14.3); White Blood Cell 5.3 10^3/uL (4.4-10.8)
[2023-02-05 14:16] LABS: Potassium 5.1 mmol/L (3.5-5.1)
[2023-02-05 14:22] LABS: Albumin 3.5 g/dL (3.4-5.0); BUN/Creatinine Ratio 26.6 (10.0-20.0); Bilirubin, Total 0.5 mg/dL (0.2-1.0); Calcium 8.4 mg/dL (8.5-10.1); Magnesium 2.6 mg/dL (1.6-2.6); Total Protein 8.3 g/dL (6.4-8.2)
== END | disposition home or self-care (01) ==
LOC: LAB 12:33
PROVIDERS: ATTEND Internal Medicine Cardiovascular Disease
DX: I50.43 Acute on chronic combined systolic (congestive) and diastolic (congestive) heart failure (principal); D64.9 Anemia, unspecified
CPT/HCPCS: 36415; 80053; 82607; 83735; 83880; 85025

== ENCOUNTER → 2023-02-11 | Outpatient (CLI) | payer BC ==
[2023-02-11] VITALS (10 sets, daily range): BP systolic 87–115; BP diastolic 27–48; PULSE 61–81; RESP 16; O2SAT 96
[~2023-02-11] MED LIST changes: +DOPamine 1600MCG/ML D5W 250 ML IV ONE
== END | disposition home or self-care (01) ==
LOC: CHF HDHVI 08:21
PROVIDERS: ATTEND Internal Medicine Cardiovascular Disease
DX: I13.0 Hypertensive heart and chronic kidney disease with heart failure and stage 1 through stage 4 chronic kidney disease, or unspecified chronic kidney disease (principal); E11.22 Type 2 diabetes mellitus with diabetic chronic kidney disease; N18.30 Chronic kidney disease, stage 3 unspecified; I50.43 Acute on chronic combined systolic (congestive) and diastolic (congestive) heart failure; I25.5 Ischemic cardiomyopathy; I25.10 Atherosclerotic heart disease of native coronary artery without angina pectoris; I25.2 Old myocardial infarction; I48.0 Paroxysmal atrial fibrillation; E78.00 Pure hypercholesterolemia, unspecified; E11.40 Type 2 diabetes mellitus with diabetic neuropathy, unspecified; E11.51 Type 2 diabetes mellitus with diabetic peripheral angiopathy without gangrene; Z95.0 Presence of cardiac pacemaker
CPT/HCPCS: 96365; 96366; G0463; J1265

== ENCOUNTER → 2023-02-14 | Outpatient (CLI) | payer BC ==
[2023-02-14] VITALS (10 sets, daily range): BP systolic 99–127; BP diastolic 34–58; PULSE 68–89; RESP 18; O2SAT 96
== END | disposition home or self-care (01) ==
LOC: CHF HDHVI 08:20
PROVIDERS: ATTEND Internal Medicine Cardiovascular Disease
DX: I13.0 Hypertensive heart and chronic kidney disease with heart failure and stage 1 through stage 4 chronic kidney disease, or unspecified chronic kidney disease (principal); E11.22 Type 2 diabetes mellitus with diabetic chronic kidney disease; N18.30 Chronic kidney disease, stage 3 unspecified; I50.43 Acute on chronic combined systolic (congestive) and diastolic (congestive) heart failure; I25.5 Ischemic cardiomyopathy; I25.10 Atherosclerotic heart disease of native coronary artery without angina pectoris; I25.2 Old myocardial infarction; I48.0 Paroxysmal atrial fibrillation; E78.00 Pure hypercholesterolemia, unspecified; E11.40 Type 2 diabetes mellitus with diabetic neuropathy, unspecified; E11.51 Type 2 diabetes mellitus with diabetic peripheral angiopathy without gangrene; Z95.0 Presence of cardiac pacemaker
CPT/HCPCS: 96365; 96366; G0463; J1265

== ENCOUNTER → 2023-02-21 | Outpatient (CLI) | payer BC ==
[2023-02-21] VITALS (8 sets, daily range): BP systolic 74–121; BP diastolic 29–54; PULSE 61–86; RESP 16; O2SAT 98
[~2023-02-21] MED LIST changes: +ALBUMIN 5% 250 ML IV ONE
== END | disposition home or self-care (01) ==
LOC: CHF HDHVI 08:25
PROVIDERS: ATTEND Internal Medicine Cardiovascular Disease
DX: I13.0 Hypertensive heart and chronic kidney disease with heart failure and stage 1 through stage 4 chronic kidney disease, or unspecified chronic kidney disease (principal); E11.22 Type 2 diabetes mellitus with diabetic chronic kidney disease; N18.30 Chronic kidney disease, stage 3 unspecified; I50.43 Acute on chronic combined systolic (congestive) and diastolic (congestive) heart failure; I25.5 Ischemic cardiomyopathy; I25.10 Atherosclerotic heart disease of native coronary artery without angina pectoris; I25.2 Old myocardial infarction; I48.0 Paroxysmal atrial fibrillation; E78.00 Pure hypercholesterolemia, unspecified; E11.40 Type 2 diabetes mellitus with diabetic neuropathy, unspecified; E11.51 Type 2 diabetes mellitus with diabetic peripheral angiopathy without gangrene; Z95.0 Presence of cardiac pacemaker
CPT/HCPCS: 96365; 96366; 96368; G0463; J1265; P9045; 96367

== ENCOUNTER → 2023-02-28 | Outpatient (CLI) | payer BC ==
[2023-02-28] VITALS (9 sets, daily range): BP systolic 101–129; BP diastolic 43–54; PULSE 64–84; RESP 16; O2SAT 96
[~2023-02-28] MED LIST changes: -ALBUMIN 5% 250 ML IV ONE
== END | disposition home or self-care (01) ==
LOC: CHF HDHVI 08:30
PROVIDERS: ATTEND Internal Medicine Cardiovascular Disease
DX: I13.0 Hypertensive heart and chronic kidney disease with heart failure and stage 1 through stage 4 chronic kidney disease, or unspecified chronic kidney disease (principal); E11.22 Type 2 diabetes mellitus with diabetic chronic kidney disease; I50.43 Acute on chronic combined systolic (congestive) and diastolic (congestive) heart failure; N18.30 Chronic kidney disease, stage 3 unspecified; I25.5 Ischemic cardiomyopathy; I25.10 Atherosclerotic heart disease of native coronary artery without angina pectoris; I25.2 Old myocardial infarction; I48.0 Paroxysmal atrial fibrillation; E11.51 Type 2 diabetes mellitus with diabetic peripheral angiopathy without gangrene; E11.40 Type 2 diabetes mellitus with diabetic neuropathy, unspecified; E78.00 Pure hypercholesterolemia, unspecified; Z95.810 Presence of automatic (implantable) cardiac defibrillator
CPT/HCPCS: 96365; 96366; G0463; J1265

== ENCOUNTER → 2023-03-01 | Outpatient (CLI) | payer BC ==
[2023-03-01] VITALS (11 sets, daily range): BP systolic 98–121; BP diastolic 29–53; PULSE 63–71; RESP 16; O2SAT 97
[~2023-03-01] MED LIST changes: +DOBUTamine 1000MCG/ML 250 ML IV ONE; -DOPamine 1600MCG/ML D5W 250 ML IV ONE; +SODIUM FERR GLUC 62.5MG/5ML 125 MG in SODIUM CHL 0.9% 100 ML IV ONE; +SODIUM FERRIC GLUC CPLEX 62.5MG/5ML VIAL IV ONE
== END | disposition home or self-care (01) ==
LOC: CHF HDHVI 10:08
PROVIDERS: ATTEND Internal Medicine Cardiovascular Disease
DX: I13.0 Hypertensive heart and chronic kidney disease with heart failure and stage 1 through stage 4 chronic kidney disease, or unspecified chronic kidney disease (principal); E11.22 Type 2 diabetes mellitus with diabetic chronic kidney disease; I50.43 Acute on chronic combined systolic (congestive) and diastolic (congestive) heart failure; N18.30 Chronic kidney disease, stage 3 unspecified; E61.1 Iron deficiency; I25.10 Atherosclerotic heart disease of native coronary artery without angina pectoris; I25.5 Ischemic cardiomyopathy; I25.2 Old myocardial infarction; E11.40 Type 2 diabetes mellitus with diabetic neuropathy, unspecified; E11.51 Type 2 diabetes mellitus with diabetic peripheral angiopathy without gangrene; E78.00 Pure hypercholesterolemia, unspecified; Z95.810 Presence of automatic (implantable) cardiac defibrillator
CPT/HCPCS: 96365; 96366; 96368; G0463; J1250; J2916

== ENCOUNTER → 2023-03-05 | Outpatient (CLI) | payer BC ==
[2023-03-05] VITALS (10 sets, daily range): BP systolic 99–113; BP diastolic 30–43; PULSE 67–78; RESP 16; O2SAT 97
[~2023-03-05] MED LIST changes: -SODIUM FERR GLUC 62.5MG/5ML 125 MG in SODIUM CHL 0.9% 100 ML IV ONE; -SODIUM FERRIC GLUC CPLEX 62.5MG/5ML VIAL IV ONE
== END | disposition home or self-care (01) ==
LOC: CHF HDHVI 08:43
PROVIDERS: ATTEND Internal Medicine Cardiovascular Disease
DX: I13.0 Hypertensive heart and chronic kidney disease with heart failure and stage 1 through stage 4 chronic kidney disease, or unspecified chronic kidney disease (principal); E11.22 Type 2 diabetes mellitus with diabetic chronic kidney disease; I50.43 Acute on chronic combined systolic (congestive) and diastolic (congestive) heart failure; N18.30 Chronic kidney disease, stage 3 unspecified; I25.5 Ischemic cardiomyopathy; I25.10 Atherosclerotic heart disease of native coronary artery without angina pectoris; I25.2 Old myocardial infarction; I48.0 Paroxysmal atrial fibrillation; E11.51 Type 2 diabetes mellitus with diabetic peripheral angiopathy without gangrene; E11.40 Type 2 diabetes mellitus with diabetic neuropathy, unspecified; E78.00 Pure hypercholesterolemia, unspecified; Z95.810 Presence of automatic (implantable) cardiac defibrillator
CPT/HCPCS: 96365; 96366; G0463; J1250

== ENCOUNTER → 2023-03-07 | Outpatient (CLI) | payer BC ==
[~2023-03-07] MED LIST changes: -DOBUTamine 1000MCG/ML 250 ML IV ONE
[2023-03-07 13:23] LABS: Basophils # (auto) 0.1 10 ^3/uL (0-0.2); Basophils % (auto) 1.1 % (0.0-2.0); Eosinophils # (auto) 0.2 10 ^3/uL (0-0.8); Eosinophils % (auto) 3.3 % (0.0-7.0); Hematocrit 27.7 % (41.0-53.0); Hemoglobin 9.4 g/dL (13.5-17.5); Lymphocytes # (auto) 1.2 10 ^3/uL (0.4-5.4); Mean Corpuscular Hemoglobin 32.7 pg (28.0-32.0); Mean Corpuscular Volume 96.1 fL (80.0-100.0); Monocytes # (auto) 0.3 10 ^3/uL (0-1.3); Monocytes % (auto) 6.6 % (0.0-12.0); Red Blood Cells 2.89 10^6/uL (4.5-5.90); Red Cell Distribution Width 15.8 % (11.8-14.3); White Blood Cell 4.7 10^3/uL (4.4-10.8)
[2023-03-07 14:04] LABS: Alanine Aminotransferase 34 U/L (7-40); Albumin 4.2 g/dL (3.2-4.8); Alkaline Phosphatase 49 U/L (46-116); Anion Gap 9.1 (5-15); Aspartate Aminotransferase 40 U/L (13-40); BUN/Creatinine Ratio 18.1 (10.0-20.0); Blood Urea Nitrogen 36 mg/dL (9-23); Calcium 8.9 mg/dL (8.5-10.1); Carbon Dioxide 22.9 mmol/L (20-30); Chloride 104 mmol/L (98-107); Glucose 173 mg/dL (74-106); Magnesium 2.2 mg/dL (1.6-2.6); Potassium 4.3 mmol/L (3.5-5.1); Sodium 136 mmol/L (136-145)
[2023-03-07 14:05] LABS: Bilirubin, Total 0.5 mg/dL (0.2-1.0); Total Protein 7.9 g/dL (5.7-8.2)
== END | disposition home or self-care (01) ==
LOC: LAB 13:04
PROVIDERS: ATTEND Internal Medicine Cardiovascular Disease
DX: I11.0 Hypertensive heart disease with heart failure (principal); I50.43 Acute on chronic combined systolic (congestive) and diastolic (congestive) heart failure; D64.9 Anemia, unspecified
CPT/HCPCS: 36415; 80053; 83735; 83880; 85025

== ENCOUNTER → 2023-03-12 | Outpatient (CLI) | payer BC ==
[2023-03-12] VITALS (10 sets, daily range): BP systolic 88–125; BP diastolic 32–53; PULSE 61–85; RESP 16; O2SAT 96
[~2023-03-12] MED LIST changes: +DOBUTamine 1000MCG/ML 0 ML IV ONE; +DOPamine 1600MCG/ML D5W 250 ML IV ONE
== END | disposition home or self-care (01) ==
LOC: CHF HDHVI 08:28
PROVIDERS: ATTEND Internal Medicine Cardiovascular Disease
DX: I13.0 Hypertensive heart and chronic kidney disease with heart failure and stage 1 through stage 4 chronic kidney disease, or unspecified chronic kidney disease (principal); E11.22 Type 2 diabetes mellitus with diabetic chronic kidney disease; I50.43 Acute on chronic combined systolic (congestive) and diastolic (congestive) heart failure; N18.30 Chronic kidney disease, stage 3 unspecified; I25.10 Atherosclerotic heart disease of native coronary artery without angina pectoris; I25.2 Old myocardial infarction; I25.5 Ischemic cardiomyopathy; I48.0 Paroxysmal atrial fibrillation; E11.51 Type 2 diabetes mellitus with diabetic peripheral angiopathy without gangrene; E11.40 Type 2 diabetes mellitus with diabetic neuropathy, unspecified; E78.00 Pure hypercholesterolemia, unspecified; Z95.810 Presence of automatic (implantable) cardiac defibrillator
CPT/HCPCS: 96365; 96366; G0463; J1265

== ENCOUNTER → 2023-03-14 | Outpatient (CLI) | payer BC ==
[2023-03-14] VITALS (9 sets, daily range): BP systolic 102–121; BP diastolic 32–73; PULSE 64–70; RESP 18; O2SAT 98
[~2023-03-14] MED LIST changes: +CYANOCOBALAMIN (B-12) 1000 MCG/1 ML VIAL IM ONE; +CYANOCOBALAMIN (B-12) 1000 MCG/1 ML VIAL ONE; -DOBUTamine 1000MCG/ML 0 ML IV ONE; +DOBUTamine 1000MCG/ML 250 ML IV ONE; -DOPamine 1600MCG/ML D5W 250 ML IV ONE
== END | disposition home or self-care (01) ==
LOC: CHF HDHVI 08:53
PROVIDERS: ATTEND Internal Medicine Cardiovascular Disease
DX: I13.0 Hypertensive heart and chronic kidney disease with heart failure and stage 1 through stage 4 chronic kidney disease, or unspecified chronic kidney disease (principal); E11.22 Type 2 diabetes mellitus with diabetic chronic kidney disease; N18.30 Chronic kidney disease, stage 3 unspecified; I50.33 Acute on chronic diastolic (congestive) heart failure; I25.5 Ischemic cardiomyopathy; D51.9 Vitamin B12 deficiency anemia, unspecified; I25.10 Atherosclerotic heart disease of native coronary artery without angina pectoris; I25.2 Old myocardial infarction; I48.0 Paroxysmal atrial fibrillation; E78.00 Pure hypercholesterolemia, unspecified; E11.40 Type 2 diabetes mellitus with diabetic neuropathy, unspecified; E11.51 Type 2 diabetes mellitus with diabetic peripheral angiopathy without gangrene; Z95.810 Presence of automatic (implantable) cardiac defibrillator
CPT/HCPCS: 96365; 96366; 96372; G0463; J1250; J3420

== ENCOUNTER → 2023-03-19 | Outpatient (CLI) | payer BC ==
[2023-03-19] VITALS (9 sets, daily range): BP systolic 94–127; BP diastolic 32–48; PULSE 65–78; RESP 16; O2SAT 97
[~2023-03-19] MED LIST changes: -CYANOCOBALAMIN (B-12) 1000 MCG/1 ML VIAL IM ONE; -CYANOCOBALAMIN (B-12) 1000 MCG/1 ML VIAL ONE
== END | disposition home or self-care (01) ==
LOC: CHF HDHVI 08:29
PROVIDERS: ATTEND Internal Medicine Cardiovascular Disease
DX: I13.0 Hypertensive heart and chronic kidney disease with heart failure and stage 1 through stage 4 chronic kidney disease, or unspecified chronic kidney disease (principal); E11.22 Type 2 diabetes mellitus with diabetic chronic kidney disease; I50.43 Acute on chronic combined systolic (congestive) and diastolic (congestive) heart failure; N18.30 Chronic kidney disease, stage 3 unspecified; I25.5 Ischemic cardiomyopathy; I25.10 Atherosclerotic heart disease of native coronary artery without angina pectoris; I25.2 Old myocardial infarction; I48.0 Paroxysmal atrial fibrillation; E11.40 Type 2 diabetes mellitus with diabetic neuropathy, unspecified; E11.51 Type 2 diabetes mellitus with diabetic peripheral angiopathy without gangrene; E78.00 Pure hypercholesterolemia, unspecified; Z95.810 Presence of automatic (implantable) cardiac defibrillator
CPT/HCPCS: 94618; 96365; 96366; G0463; J1250

== ENCOUNTER → 2023-03-21 | Outpatient (CLI) | payer BC ==
[~2023-03-21] MED LIST changes: -DOBUTamine 1000MCG/ML 250 ML IV ONE
[2023-03-21 13:59] LABS: % Iron Saturation 28.7 % (20-55)
== END | disposition home or self-care (01) ==
LOC: LAB 12:38
PROVIDERS: ATTEND Internal Medicine Cardiovascular Disease
DX: E11.9 Type 2 diabetes mellitus without complications (principal); E61.1 Iron deficiency
CPT/HCPCS: 36415; 83036; 83540; 83550

== ENCOUNTER → 2023-03-28 | Outpatient (CLI) | payer MEDICARE ==
[2023-03-28] VITALS (9 sets, daily range): BP systolic 96–122; BP diastolic 32–48; PULSE 67–74; RESP 16; O2SAT 98
[~2023-03-28] MED LIST changes: +DOBUTamine 1000MCG/ML 250 ML IV ONE
== END | disposition home or self-care (01) ==
LOC: CHF HDHVI 09:54
PROVIDERS: ATTEND Internal Medicine Cardiovascular Disease
DX: I13.0 Hypertensive heart and chronic kidney disease with heart failure and stage 1 through stage 4 chronic kidney disease, or unspecified chronic kidney disease (principal); E11.22 Type 2 diabetes mellitus with diabetic chronic kidney disease; N18.30 Chronic kidney disease, stage 3 unspecified; I50.43 Acute on chronic combined systolic (congestive) and diastolic (congestive) heart failure; I25.5 Ischemic cardiomyopathy; I25.10 Atherosclerotic heart disease of native coronary artery without angina pectoris; I25.2 Old myocardial infarction; I48.0 Paroxysmal atrial fibrillation; E78.00 Pure hypercholesterolemia, unspecified; E11.40 Type 2 diabetes mellitus with diabetic neuropathy, unspecified; E11.51 Type 2 diabetes mellitus with diabetic peripheral angiopathy without gangrene; Z95.0 Presence of cardiac pacemaker
CPT/HCPCS: 96365; 96366; G0463; J1250

== ENCOUNTER → 2023-04-02 | Outpatient (CLI) | payer MEDICARE ==
[2023-04-02] VITALS (9 sets, daily range): BP systolic 93–108; BP diastolic 41–49; PULSE 73–80; RESP 16; O2SAT 97
== END | disposition home or self-care (01) ==
LOC: CHF HDHVI 09:18
PROVIDERS: ATTEND Internal Medicine Cardiovascular Disease
DX: I13.0 Hypertensive heart and chronic kidney disease with heart failure and stage 1 through stage 4 chronic kidney disease, or unspecified chronic kidney disease (principal); E11.22 Type 2 diabetes mellitus with diabetic chronic kidney disease; N18.30 Chronic kidney disease, stage 3 unspecified; I50.43 Acute on chronic combined systolic (congestive) and diastolic (congestive) heart failure; I25.5 Ischemic cardiomyopathy; I25.10 Atherosclerotic heart disease of native coronary artery without angina pectoris; I25.2 Old myocardial infarction; I48.0 Paroxysmal atrial fibrillation; E78.00 Pure hypercholesterolemia, unspecified; E11.40 Type 2 diabetes mellitus with diabetic neuropathy, unspecified; E11.51 Type 2 diabetes mellitus with diabetic peripheral angiopathy without gangrene; Z95.0 Presence of cardiac pacemaker
CPT/HCPCS: 96365; 96366; G0463; J1250

== ENCOUNTER → 2023-04-04 | Outpatient (CLI) | payer MEDICARE ==
[2023-04-04] VITALS (9 sets, daily range): BP systolic 80–112; BP diastolic 33–51; PULSE 73–89; RESP 16; O2SAT 96
[~2023-04-04] MED LIST changes: +SODIUM CHLORIDE 0.9% 250 ML IV ONE
== END | disposition home or self-care (01) ==
LOC: CHF HDHVI 09:19
PROVIDERS: ATTEND Internal Medicine Cardiovascular Disease
DX: I13.0 Hypertensive heart and chronic kidney disease with heart failure and stage 1 through stage 4 chronic kidney disease, or unspecified chronic kidney disease (principal); E11.22 Type 2 diabetes mellitus with diabetic chronic kidney disease; N18.30 Chronic kidney disease, stage 3 unspecified; I50.43 Acute on chronic combined systolic (congestive) and diastolic (congestive) heart failure; I25.5 Ischemic cardiomyopathy; I25.10 Atherosclerotic heart disease of native coronary artery without angina pectoris; I25.2 Old myocardial infarction; I48.0 Paroxysmal atrial fibrillation; E78.00 Pure hypercholesterolemia, unspecified; E11.40 Type 2 diabetes mellitus with diabetic neuropathy, unspecified; E11.51 Type 2 diabetes mellitus with diabetic peripheral angiopathy without gangrene; Z95.810 Presence of automatic (implantable) cardiac defibrillator
CPT/HCPCS: 96365; 96366; G0463; J1250; J7050; 96367

== ENCOUNTER → 2023-04-09 | Outpatient (CLI) | payer MEDICARE ==
[2023-04-09] VITALS (9 sets, daily range): BP systolic 102–110; BP diastolic 35–42; PULSE 61–70; RESP 16; O2SAT 96
[~2023-04-09] MED LIST changes: -SODIUM CHLORIDE 0.9% 250 ML IV ONE
== END | disposition home or self-care (01) ==
LOC: CHF HDHVI 08:40
PROVIDERS: ATTEND Internal Medicine Cardiovascular Disease
DX: I13.0 Hypertensive heart and chronic kidney disease with heart failure and stage 1 through stage 4 chronic kidney disease, or unspecified chronic kidney disease (principal); E11.22 Type 2 diabetes mellitus with diabetic chronic kidney disease; N18.30 Chronic kidney disease, stage 3 unspecified; I50.43 Acute on chronic combined systolic (congestive) and diastolic (congestive) heart failure; I25.5 Ischemic cardiomyopathy; I25.10 Atherosclerotic heart disease of native coronary artery without angina pectoris; I25.2 Old myocardial infarction; I48.0 Paroxysmal atrial fibrillation; E78.00 Pure hypercholesterolemia, unspecified; E11.40 Type 2 diabetes mellitus with diabetic neuropathy, unspecified; E11.51 Type 2 diabetes mellitus with diabetic peripheral angiopathy without gangrene; Z95.810 Presence of automatic (implantable) cardiac defibrillator
CPT/HCPCS: 96365; 96366; G0463; J1250

== ENCOUNTER → 2023-04-11 | Outpatient (CLI) | payer MEDICARE ==
[~2023-04-11] MED LIST changes: -DOBUTamine 1000MCG/ML 250 ML IV ONE
[2023-04-11 15:24] LABS: Basophils # (auto) 0 10 ^3/uL (0-0.2); Basophils % (auto) 0.6 % (0.0-2.0); Eosinophils # (auto) 0.1 10 ^3/uL (0-0.8); Eosinophils % (auto) 2.5 % (0.0-7.0); Hematocrit 32.2 % (41.0-53.0); Hemoglobin 10.8 g/dL (13.5-17.5); Lymphocytes % (auto) 21.2 % (10.0-50.0); Mean Corpuscular Hemoglobin 33.4 pg (28.0-32.0); Mean Corpuscular Hgb Conc. 33.6 g/dL (32.0-36.0); Mean Corpuscular Volume 99.3 fL (80.0-100.0); Monocytes # (auto) 0.3 10 ^3/uL (0-1.3); Monocytes % (auto) 7.2 % (0.0-12.0); Neutrophils # (auto) 3.2 10 ^3/uL (1.6-8.6); Neutrophils % (auto) 68.5 % (37.0-80.0); Nucleated Red Blood Cells % 0.1 %; Red Blood Cells 3.25 10^6/uL (4.5-5.90); Red Cell Distribution Width 15.8 % (11.8-14.3); White Blood Cell 4.6 10^3/uL (4.4-10.8)
[2023-04-11 15:53] LABS: Alanine Aminotransferase 23 U/L (7-40); Albumin 4.3 g/dL (3.2-4.8); Alkaline Phosphatase 58 U/L (46-116); Anion Gap 9 (5-15); Aspartate Aminotransferase 33 U/L (13-40); BUN/Creatinine Ratio 17.9 (10.0-20.0); Bilirubin, Total 0.8 mg/dL (0.2-1.0); Blood Urea Nitrogen 30 mg/dL (9-23); Calcium 9.1 mg/dL (8.7-10.4); Carbon Dioxide 26 mmol/L (20-30); Chloride 103 mmol/L (98-107); Glucose 184 mg/dL (74-106); Magnesium 2.3 mg/dL (1.6-2.6); Potassium 4.3 mmol/L (3.5-5.1); Sodium 138 mmol/L (136-145); Total Protein 8.1 g/dL (5.7-8.2)
== END | disposition home or self-care (01) ==
LOC: LAB 15:12
PROVIDERS: ATTEND Internal Medicine Cardiovascular Disease
DX: I11.0 Hypertensive heart disease with heart failure (principal); I50.23 Acute on chronic systolic (congestive) heart failure; D64.9 Anemia, unspecified
CPT/HCPCS: 36415; 80053; 83735; 83880; 85025

== ENCOUNTER → 2023-04-11 | Outpatient (CLI) | payer MEDICARE ==
[2023-04-11] VITALS (9 sets, daily range): BP systolic 95–118; BP diastolic 38–45; PULSE 60–62; RESP 16; O2SAT 97
[~2023-04-11] MED LIST changes: +CYANOCOBALAMIN (B-12) 1000 MCG/1 ML VIAL IM ONE; +CYANOCOBALAMIN (B-12) 1000 MCG/1 ML VIAL ONE; +DOBUTamine 1000MCG/ML 250 ML IV ONE
== END | disposition home or self-care (01) ==
LOC: CHF HDHVI 11:12
PROVIDERS: ATTEND Internal Medicine Cardiovascular Disease
DX: I13.0 Hypertensive heart and chronic kidney disease with heart failure and stage 1 through stage 4 chronic kidney disease, or unspecified chronic kidney disease (principal); E11.22 Type 2 diabetes mellitus with diabetic chronic kidney disease; N18.30 Chronic kidney disease, stage 3 unspecified; I50.43 Acute on chronic combined systolic (congestive) and diastolic (congestive) heart failure; D64.9 Anemia, unspecified; I95.89 Other hypotension; I25.10 Atherosclerotic heart disease of native coronary artery without angina pectoris; I25.2 Old myocardial infarction; I48.0 Paroxysmal atrial fibrillation; E78.00 Pure hypercholesterolemia, unspecified; E11.40 Type 2 diabetes mellitus with diabetic neuropathy, unspecified; E11.51 Type 2 diabetes mellitus with diabetic peripheral angiopathy without gangrene; Z95.810 Presence of automatic (implantable) cardiac defibrillator
CPT/HCPCS: 96365; 96366; 96372; G0463; J1250; J3420

== ENCOUNTER → 2023-04-12 | Outpatient (CLI) | payer MEDICARE ==
[2023-04-12] VITALS (9 sets, daily range): BP systolic 111–128; BP diastolic 34–49; PULSE 73–79; RESP 16; O2SAT 97
[~2023-04-12] MED LIST changes: +BACITRACIN TOP OINT 1 UD PKG TOP ONE; -CYANOCOBALAMIN (B-12) 1000 MCG/1 ML VIAL IM ONE; -CYANOCOBALAMIN (B-12) 1000 MCG/1 ML VIAL ONE
== END | disposition home or self-care (01) ==
LOC: CHF HDHVI 10:43
PROVIDERS: ATTEND Internal Medicine Cardiovascular Disease
DX: I13.0 Hypertensive heart and chronic kidney disease with heart failure and stage 1 through stage 4 chronic kidney disease, or unspecified chronic kidney disease (principal); E11.22 Type 2 diabetes mellitus with diabetic chronic kidney disease; N18.30 Chronic kidney disease, stage 3 unspecified; I50.43 Acute on chronic combined systolic (congestive) and diastolic (congestive) heart failure; I25.5 Ischemic cardiomyopathy; I25.10 Atherosclerotic heart disease of native coronary artery without angina pectoris; I25.2 Old myocardial infarction; I48.0 Paroxysmal atrial fibrillation; E78.00 Pure hypercholesterolemia, unspecified; E11.40 Type 2 diabetes mellitus with diabetic neuropathy, unspecified; E11.51 Type 2 diabetes mellitus with diabetic peripheral angiopathy without gangrene; Z95.810 Presence of automatic (implantable) cardiac defibrillator
CPT/HCPCS: 96365; 96366; G0463; J1250

== ENCOUNTER → 2023-04-16 | Outpatient (CLI) | payer MEDICARE ==
[~2023-04-16] VITALS: Ht 30.5 cm; Wt 56.7 kg
[2023-04-16] VITALS (9 sets, daily range): BP systolic 106–127; BP diastolic 34–50; PULSE 67–73; RESP 16; O2SAT 96
[~2023-04-16] MED LIST changes: -BACITRACIN TOP OINT 1 UD PKG TOP ONE
== END | disposition home or self-care (01) ==
LOC: CHF HDHVI 08:37
PROVIDERS: ATTEND Internal Medicine Cardiovascular Disease
DX: I13.0 Hypertensive heart and chronic kidney disease with heart failure and stage 1 through stage 4 chronic kidney disease, or unspecified chronic kidney disease (principal); E11.22 Type 2 diabetes mellitus with diabetic chronic kidney disease; I50.43 Acute on chronic combined systolic (congestive) and diastolic (congestive) heart failure; N18.30 Chronic kidney disease, stage 3 unspecified; I25.5 Ischemic cardiomyopathy; I25.10 Atherosclerotic heart disease of native coronary artery without angina pectoris; I25.2 Old myocardial infarction; I48.0 Paroxysmal atrial fibrillation; E11.40 Type 2 diabetes mellitus with diabetic neuropathy, unspecified; E11.51 Type 2 diabetes mellitus with diabetic peripheral angiopathy without gangrene; E78.00 Pure hypercholesterolemia, unspecified; Z95.810 Presence of automatic (implantable) cardiac defibrillator
CPT/HCPCS: 96365; 96366; G0463; J1250

== ENCOUNTER → 2023-04-18 | Outpatient (CLI) | payer MEDICARE ==
[~2023-04-18] MED LIST changes: -DOBUTamine 1000MCG/ML 250 ML IV ONE
== END | disposition home or self-care (01) ==
LOC: LAB 12:17
PROVIDERS: ATTEND Internal Medicine Cardiovascular Disease
DX: I50.43 Acute on chronic combined systolic (congestive) and diastolic (congestive) heart failure (principal)
CPT/HCPCS: 83880

== ENCOUNTER → 2023-04-18 | Outpatient (CLI) | payer MEDICARE ==
[2023-04-18] VITALS (9 sets, daily range): BP systolic 117–133; BP diastolic 41–56; PULSE 60–69; RESP 16; O2SAT 98
[~2023-04-18] MED LIST changes: +DOBUTamine 1000MCG/ML 250 ML IV ONE
== END | disposition home or self-care (01) ==
LOC: CHF HDHVI 08:30
PROVIDERS: ATTEND Internal Medicine Cardiovascular Disease
DX: I13.0 Hypertensive heart and chronic kidney disease with heart failure and stage 1 through stage 4 chronic kidney disease, or unspecified chronic kidney disease (principal); E11.22 Type 2 diabetes mellitus with diabetic chronic kidney disease; I50.43 Acute on chronic combined systolic (congestive) and diastolic (congestive) heart failure; N18.30 Chronic kidney disease, stage 3 unspecified; I25.10 Atherosclerotic heart disease of native coronary artery without angina pectoris; I25.5 Ischemic cardiomyopathy; I25.2 Old myocardial infarction; I48.0 Paroxysmal atrial fibrillation; E11.51 Type 2 diabetes mellitus with diabetic peripheral angiopathy without gangrene; E11.40 Type 2 diabetes mellitus with diabetic neuropathy, unspecified; E78.00 Pure hypercholesterolemia, unspecified; Z95.810 Presence of automatic (implantable) cardiac defibrillator
CPT/HCPCS: 96365; 96366; G0463; J1250

== ENCOUNTER → 2023-04-22 | Outpatient (CLI) | payer MEDICARE ==
[2023-04-22] VITALS (10 sets, daily range): BP systolic 104–126; BP diastolic 36–44; PULSE 61–72; RESP 16–18; O2SAT 97
[~2023-04-22] MED LIST changes: +DOBUTamine 1000MCG/ML 250 ML IV SCH
== END | disposition home or self-care (01) ==
LOC: CHF HDHVI 09:06
PROVIDERS: ATTEND Internal Medicine Cardiovascular Disease
DX: I13.0 Hypertensive heart and chronic kidney disease with heart failure and stage 1 through stage 4 chronic kidney disease, or unspecified chronic kidney disease (principal); E11.22 Type 2 diabetes mellitus with diabetic chronic kidney disease; I50.43 Acute on chronic combined systolic (congestive) and diastolic (congestive) heart failure; N18.30 Chronic kidney disease, stage 3 unspecified; I25.5 Ischemic cardiomyopathy; I25.10 Atherosclerotic heart disease of native coronary artery without angina pectoris; I25.2 Old myocardial infarction; I48.0 Paroxysmal atrial fibrillation; E11.40 Type 2 diabetes mellitus with diabetic neuropathy, unspecified; E11.51 Type 2 diabetes mellitus with diabetic peripheral angiopathy without gangrene; E78.00 Pure hypercholesterolemia, unspecified; Z95.810 Presence of automatic (implantable) cardiac defibrillator
CPT/HCPCS: 96365; 96366; G0463; J1250

== ENCOUNTER → 2023-04-24 | Outpatient (CLI) | payer MEDICARE ==
[2023-04-24] VITALS (9 sets, daily range): BP systolic 92–122; BP diastolic 31–57; PULSE 65–77; RESP 16–18; O2SAT 96–97
== END | disposition home or self-care (01) ==
LOC: CHF HDHVI 08:22
PROVIDERS: ATTEND Internal Medicine Cardiovascular Disease
DX: I13.0 Hypertensive heart and chronic kidney disease with heart failure and stage 1 through stage 4 chronic kidney disease, or unspecified chronic kidney disease (principal); E11.22 Type 2 diabetes mellitus with diabetic chronic kidney disease; I50.43 Acute on chronic combined systolic (congestive) and diastolic (congestive) heart failure; N18.30 Chronic kidney disease, stage 3 unspecified; I25.5 Ischemic cardiomyopathy; I95.9 Hypotension, unspecified; I25.10 Atherosclerotic heart disease of native coronary artery without angina pectoris; I25.2 Old myocardial infarction; I48.0 Paroxysmal atrial fibrillation; E11.51 Type 2 diabetes mellitus with diabetic peripheral angiopathy without gangrene; E11.40 Type 2 diabetes mellitus with diabetic neuropathy, unspecified; E78.00 Pure hypercholesterolemia, unspecified; Z95.810 Presence of automatic (implantable) cardiac defibrillator
CPT/HCPCS: 96365; 96366; G0463; J1250

== ENCOUNTER → 2023-05-07 | Outpatient (CLI) | payer MEDICARE ==
[2023-05-07] VITALS (9 sets, daily range): BP systolic 92–123; BP diastolic 32–82; PULSE 63–77; RESP 16; O2SAT 97
[~2023-05-07] MED LIST changes: -DOBUTamine 1000MCG/ML 250 ML IV SCH
== END | disposition home or self-care (01) ==
LOC: CHF HDHVI 08:30
PROVIDERS: ATTEND Internal Medicine Cardiovascular Disease
DX: I13.0 Hypertensive heart and chronic kidney disease with heart failure and stage 1 through stage 4 chronic kidney disease, or unspecified chronic kidney disease (principal); E11.22 Type 2 diabetes mellitus with diabetic chronic kidney disease; I50.43 Acute on chronic combined systolic (congestive) and diastolic (congestive) heart failure; N18.30 Chronic kidney disease, stage 3 unspecified; E11.40 Type 2 diabetes mellitus with diabetic neuropathy, unspecified; E11.51 Type 2 diabetes mellitus with diabetic peripheral angiopathy without gangrene; I25.10 Atherosclerotic heart disease of native coronary artery without angina pectoris; I25.5 Ischemic cardiomyopathy; I25.2 Old myocardial infarction; I48.0 Paroxysmal atrial fibrillation; E78.00 Pure hypercholesterolemia, unspecified
CPT/HCPCS: 96365; 96366; G0463; J1250

== ENCOUNTER → 2023-05-09 | Outpatient (CLI) | payer MEDICARE ==
[~2023-05-09] MED LIST changes: -DOBUTamine 1000MCG/ML 250 ML IV ONE
[2023-05-09 12:36] LABS: Basophils # (auto) 0 10 ^3/uL (0-0.2); Basophils % (auto) 0.7 % (0.0-2.0); Eosinophils # (auto) 0.1 10 ^3/uL (0-0.8); Eosinophils % (auto) 2.3 % (0.0-7.0); Hematocrit 26.7 % (41.0-53.0); Lymphocytes # (auto) 0.8 10 ^3/uL (0.4-5.4); Mean Corpuscular Hemoglobin 32.8 pg (28.0-32.0); Mean Corpuscular Hgb Conc. 33.9 g/dL (32.0-36.0); Mean Corpuscular Volume 96.9 fL (80.0-100.0); Monocytes # (auto) 0.4 10 ^3/uL (0-1.3); Monocytes % (auto) 8.7 % (0.0-12.0); Neutrophils # (auto) 3.5 10 ^3/uL (1.6-8.6); Neutrophils % (auto) 72.3 % (37.0-80.0); Red Blood Cells 2.75 10^6/uL (4.5-5.90); Red Cell Distribution Width 15.1 % (11.8-14.3); White Blood Cell 4.8 10^3/uL (4.4-10.8)
[2023-05-09 13:16] LABS: Alanine Aminotransferase 22 U/L (7-40); Albumin 3.9 g/dL (3.2-4.8); Alkaline Phosphatase 59 U/L (46-116); Anion Gap 5 (5-15); Aspartate Aminotransferase 23 U/L (13-40); BUN/Creatinine Ratio 24.7 (10.0-20.0); Bilirubin, Total 0.6 mg/dL (0.2-1.0); Blood Urea Nitrogen 37 mg/dL (9-23); Calcium 8.6 mg/dL (8.7-10.4); Carbon Dioxide 28 mmol/L (20-30); Chloride 100 mmol/L (98-107); Glucose 280 mg/dL (74-106); Magnesium 2.4 mg/dL (1.6-2.6); Potassium 4.5 mmol/L (3.5-5.1); Sodium 133 mmol/L (136-145); Total Protein 7.1 g/dL (5.7-8.2)
== END | disposition home or self-care (01) ==
LOC: LAB 12:23
PROVIDERS: ATTEND Internal Medicine Cardiovascular Disease
DX: I11.0 Hypertensive heart disease with heart failure (principal); I50.43 Acute on chronic combined systolic (congestive) and diastolic (congestive) heart failure; D64.9 Anemia, unspecified
CPT/HCPCS: 36415; 80053; 83735; 83880; 85025

== ENCOUNTER → 2023-05-09 | Outpatient (CLI) | payer MEDICARE ==
[2023-05-09] VITALS (9 sets, daily range): BP systolic 100–136; BP diastolic 37–51; PULSE 64–72; RESP 16; O2SAT 99
[~2023-05-09] MED LIST changes: +CYANOCOBALAMIN (B-12) 1000 MCG/1 ML VIAL IM ONE; +CYANOCOBALAMIN (B-12) 1000 MCG/1 ML VIAL ONE; +DOBUTamine 1000MCG/ML 250 ML IV ONE
== END | disposition home or self-care (01) ==
LOC: CHF HDHVI 08:32
PROVIDERS: ATTEND Internal Medicine Cardiovascular Disease
DX: I13.0 Hypertensive heart and chronic kidney disease with heart failure and stage 1 through stage 4 chronic kidney disease, or unspecified chronic kidney disease (principal); E11.22 Type 2 diabetes mellitus with diabetic chronic kidney disease; I50.43 Acute on chronic combined systolic (congestive) and diastolic (congestive) heart failure; I25.5 Ischemic cardiomyopathy; I25.2 Old myocardial infarction; I25.10 Atherosclerotic heart disease of native coronary artery without angina pectoris; I95.9 Hypotension, unspecified; E11.40 Type 2 diabetes mellitus with diabetic neuropathy, unspecified; E11.51 Type 2 diabetes mellitus with diabetic peripheral angiopathy without gangrene; I48.0 Paroxysmal atrial fibrillation; E78.00 Pure hypercholesterolemia, unspecified; Z95.810 Presence of automatic (implantable) cardiac defibrillator
CPT/HCPCS: 96365; 96366; 96372; G0463; J1250; J3420

== ENCOUNTER → 2023-05-14 | Outpatient (CLI) | payer MEDICARE ==
[2023-05-14] VITALS (9 sets, daily range): BP systolic 92–113; BP diastolic 33–41; PULSE 69–83; RESP 16; O2SAT 96
[~2023-05-14] MED LIST changes: -CYANOCOBALAMIN (B-12) 1000 MCG/1 ML VIAL IM ONE; -CYANOCOBALAMIN (B-12) 1000 MCG/1 ML VIAL ONE
== END | disposition home or self-care (01) ==
LOC: CHF HDHVI 08:31
PROVIDERS: ATTEND Internal Medicine Cardiovascular Disease
DX: I13.0 Hypertensive heart and chronic kidney disease with heart failure and stage 1 through stage 4 chronic kidney disease, or unspecified chronic kidney disease (principal); E11.22 Type 2 diabetes mellitus with diabetic chronic kidney disease; I50.43 Acute on chronic combined systolic (congestive) and diastolic (congestive) heart failure; N18.30 Chronic kidney disease, stage 3 unspecified; I25.5 Ischemic cardiomyopathy; I25.10 Atherosclerotic heart disease of native coronary artery without angina pectoris; I25.2 Old myocardial infarction; I48.0 Paroxysmal atrial fibrillation; E11.40 Type 2 diabetes mellitus with diabetic neuropathy, unspecified; E11.51 Type 2 diabetes mellitus with diabetic peripheral angiopathy without gangrene; Z95.810 Presence of automatic (implantable) cardiac defibrillator
CPT/HCPCS: 96365; 96366; G0463; J1250

== ENCOUNTER → 2023-05-16 | Outpatient (CLI) | payer MEDICARE ==
[2023-05-16] VITALS (9 sets, daily range): BP systolic 99–113; BP diastolic 32–39; PULSE 69–79; RESP 16; O2SAT 97
== END | disposition home or self-care (01) ==
LOC: CHF HDHVI 08:37
PROVIDERS: ATTEND Internal Medicine Cardiovascular Disease
DX: I13.0 Hypertensive heart and chronic kidney disease with heart failure and stage 1 through stage 4 chronic kidney disease, or unspecified chronic kidney disease (principal); E11.22 Type 2 diabetes mellitus with diabetic chronic kidney disease; I50.43 Acute on chronic combined systolic (congestive) and diastolic (congestive) heart failure; N18.30 Chronic kidney disease, stage 3 unspecified; I25.5 Ischemic cardiomyopathy; I25.2 Old myocardial infarction; I25.10 Atherosclerotic heart disease of native coronary artery without angina pectoris; I48.0 Paroxysmal atrial fibrillation; E11.40 Type 2 diabetes mellitus with diabetic neuropathy, unspecified; E11.51 Type 2 diabetes mellitus with diabetic peripheral angiopathy without gangrene; E78.00 Pure hypercholesterolemia, unspecified; Z95.810 Presence of automatic (implantable) cardiac defibrillator
CPT/HCPCS: 96365; 96366; G0463; J1250

== ENCOUNTER → 2023-05-28 | Outpatient (CLI) | payer MEDICARE ==
[2023-05-28] VITALS (9 sets, daily range): BP systolic 108–122; BP diastolic 34–44; PULSE 68–74; RESP 16; O2SAT 99
[~2023-05-28] MED LIST changes: +DOBUTamine 1000MCG/ML 250 ML IV SCH; +SODIUM FERR GLUC 62.5MG/5ML 125 MG in SODIUM CHL 0.9% 100 ML IV ONE; +SODIUM FERRIC GLUC CPLEX 62.5MG/5ML VIAL IV ONE
== END | disposition home or self-care (01) ==
LOC: CHF HDHVI 08:32
PROVIDERS: ATTEND Internal Medicine Cardiovascular Disease
DX: I13.0 Hypertensive heart and chronic kidney disease with heart failure and stage 1 through stage 4 chronic kidney disease, or unspecified chronic kidney disease (principal); E11.22 Type 2 diabetes mellitus with diabetic chronic kidney disease; I50.43 Acute on chronic combined systolic (congestive) and diastolic (congestive) heart failure; N18.30 Chronic kidney disease, stage 3 unspecified; I25.5 Ischemic cardiomyopathy; I25.2 Old myocardial infarction; I25.10 Atherosclerotic heart disease of native coronary artery without angina pectoris; I48.0 Paroxysmal atrial fibrillation; E61.1 Iron deficiency; E03.9 Hypothyroidism, unspecified; E11.40 Type 2 diabetes mellitus with diabetic neuropathy, unspecified; E11.51 Type 2 diabetes mellitus with diabetic peripheral angiopathy without gangrene; E78.00 Pure hypercholesterolemia, unspecified; Z95.810 Presence of automatic (implantable) cardiac defibrillator
CPT/HCPCS: 96365; 96366; 96368; G0463; J1250; J2916; 96367

== ENCOUNTER → 2023-05-30 | Outpatient (CLI) | payer MEDICARE ==
[2023-05-30] VITALS (9 sets, daily range): BP systolic 104–127; BP diastolic 35–44; PULSE 69–81; RESP 16; O2SAT 97
[~2023-05-30] MED LIST changes: -DOBUTamine 1000MCG/ML 250 ML IV SCH
== END | disposition home or self-care (01) ==
LOC: CHF HDHVI 08:31
PROVIDERS: ATTEND Internal Medicine Cardiovascular Disease
DX: I13.0 Hypertensive heart and chronic kidney disease with heart failure and stage 1 through stage 4 chronic kidney disease, or unspecified chronic kidney disease (principal); E11.22 Type 2 diabetes mellitus with diabetic chronic kidney disease; N18.30 Chronic kidney disease, stage 3 unspecified; I50.9 Heart failure, unspecified; I50.43 Acute on chronic combined systolic (congestive) and diastolic (congestive) heart failure; I25.5 Ischemic cardiomyopathy; E61.1 Iron deficiency; E03.9 Hypothyroidism, unspecified; I25.10 Atherosclerotic heart disease of native coronary artery without angina pectoris; I25.2 Old myocardial infarction; I48.0 Paroxysmal atrial fibrillation; E78.00 Pure hypercholesterolemia, unspecified; E11.40 Type 2 diabetes mellitus with diabetic neuropathy, unspecified; E11.51 Type 2 diabetes mellitus with diabetic peripheral angiopathy without gangrene; Z95.810 Presence of automatic (implantable) cardiac defibrillator
CPT/HCPCS: 96365; 96366; 96368; G0463; J1250; J2916; 96367

== ENCOUNTER → 2023-06-04 | Outpatient (CLI) | payer MEDICARE ==
[~2023-06-04] MED LIST changes: -DOBUTamine 1000MCG/ML 250 ML IV ONE; -SODIUM FERR GLUC 62.5MG/5ML 125 MG in SODIUM CHL 0.9% 100 ML IV ONE; -SODIUM FERRIC GLUC CPLEX 62.5MG/5ML VIAL IV ONE
== END | disposition home or self-care (01) ==
LOC: LAB 12:37
PROVIDERS: ATTEND Internal Medicine Cardiovascular Disease
DX: E11.9 Type 2 diabetes mellitus without complications (principal)
CPT/HCPCS: 36415; 83036

== ENCOUNTER → 2023-06-06 | Outpatient (CLI) | payer MEDICARE ==
[2023-06-06] VITALS (10 sets, daily range): BP systolic 92–114; BP diastolic 31–40; PULSE 62–75; RESP 16; O2SAT 95
[~2023-06-06] MED LIST changes: +CYANOCOBALAMIN (B-12) 1000 MCG/1 ML VIAL IM ONE; +CYANOCOBALAMIN (B-12) 1000 MCG/1 ML VIAL ONE; +DOBUTamine 1000MCG/ML 250 ML IV ONE; +SODIUM FERR GLUC 62.5MG/5ML 125 MG in SODIUM CHL 0.9% 100 ML IV ONE; +SODIUM FERRIC GLUC CPLEX 62.5MG/5ML VIAL IV ONE
== END | disposition home or self-care (01) ==
LOC: CHF HDHVI 08:21
PROVIDERS: ATTEND Internal Medicine Cardiovascular Disease
DX: I13.0 Hypertensive heart and chronic kidney disease with heart failure and stage 1 through stage 4 chronic kidney disease, or unspecified chronic kidney disease (principal); E11.22 Type 2 diabetes mellitus with diabetic chronic kidney disease; I50.43 Acute on chronic combined systolic (congestive) and diastolic (congestive) heart failure; N18.30 Chronic kidney disease, stage 3 unspecified; E61.1 Iron deficiency; D51.9 Vitamin B12 deficiency anemia, unspecified; I25.10 Atherosclerotic heart disease of native coronary artery without angina pectoris; I25.5 Ischemic cardiomyopathy; I25.2 Old myocardial infarction; I48.0 Paroxysmal atrial fibrillation; E03.9 Hypothyroidism, unspecified; E78.00 Pure hypercholesterolemia, unspecified; E11.40 Type 2 diabetes mellitus with diabetic neuropathy, unspecified; E11.51 Type 2 diabetes mellitus with diabetic peripheral angiopathy without gangrene; Z95.810 Presence of automatic (implantable) cardiac defibrillator
CPT/HCPCS: 96365; 96366; 96367; 96372; G0463; J1250; J2916; J3420

== ENCOUNTER → 2023-06-06 | Outpatient (CLI) | payer MEDICARE ==
[~2023-06-06] MED LIST changes: -CYANOCOBALAMIN (B-12) 1000 MCG/1 ML VIAL IM ONE; -CYANOCOBALAMIN (B-12) 1000 MCG/1 ML VIAL ONE; -DOBUTamine 1000MCG/ML 250 ML IV ONE; -SODIUM FERR GLUC 62.5MG/5ML 125 MG in SODIUM CHL 0.9% 100 ML IV ONE; -SODIUM FERRIC GLUC CPLEX 62.5MG/5ML VIAL IV ONE
[2023-06-06 13:30] LABS: Basophils # (auto) 0 10 ^3/uL (0-0.2); Basophils % (auto) 0.7 % (0.0-2.0); Eosinophils # (auto) 0.1 10 ^3/uL (0-0.8); Eosinophils % (auto) 2.6 % (0.0-7.0); Hematocrit 29.3 % (41.0-53.0); Hemoglobin 9.8 g/dL (13.5-17.5); Lymphocytes # (auto) 0.9 10 ^3/uL (0.4-5.4); Lymphocytes % (auto) 20.2 % (10.0-50.0); Mean Corpuscular Hemoglobin 33.4 pg (28.0-32.0); Mean Corpuscular Hgb Conc. 33.5 g/dL (32.0-36.0); Mean Corpuscular Volume 99.9 fL (80.0-100.0); Monocytes # (auto) 0.3 10 ^3/uL (0-1.3); Monocytes % (auto) 7.2 % (0.0-12.0); Neutrophils % (auto) 69.3 % (37.0-80.0); Red Blood Cells 2.94 10^6/uL (4.5-5.90); Red Cell Distribution Width 17.5 % (11.8-14.3); White Blood Cell 4.3 10^3/uL (4.4-10.8)
[2023-06-06 14:30] LABS: Alanine Aminotransferase 40 U/L (7-40); Alkaline Phosphatase 61 U/L (46-116); Anion Gap 5 (5-15); Aspartate Aminotransferase 43 U/L (13-40); BUN/Creatinine Ratio 24.3 (10.0-20.0); Blood Urea Nitrogen 37 mg/dL (9-23); Calcium 8.8 mg/dL (8.7-10.4); Carbon Dioxide 26 mmol/L (20-30); Chloride 105 mmol/L (98-107); Glucose 277 mg/dL (74-106); Magnesium 2.2 mg/dL (1.6-2.6); Potassium 4.3 mmol/L (3.5-5.1); Sodium 136 mmol/L (136-145)
[2023-06-06 14:31] LABS: Bilirubin, Total 0.6 mg/dL (0.2-1.0); Total Protein 7.4 g/dL (5.7-8.2)
[2023-06-06 14:34] LABS: Free T4 (Free Thyroxine) 0.92 ng/dL (0.89-1.76)
[2023-06-06 14:43] LABS: % Iron Saturation 39.8 % (20-55)
== END | disposition home or self-care (01) ==
LOC: LAB 13:01
PROVIDERS: ATTEND Internal Medicine Cardiovascular Disease
DX: I50.43 Acute on chronic combined systolic (congestive) and diastolic (congestive) heart failure (principal); E61.1 Iron deficiency; D51.9 Vitamin B12 deficiency anemia, unspecified; E03.9 Hypothyroidism, unspecified
CPT/HCPCS: 36415; 80053; 82607; 83540; 83550; 83735; 83880; 84439; 84443; 85025

== ENCOUNTER → 2023-06-11 | Outpatient (CLI) | payer MEDICARE ==
[2023-06-11] VITALS (9 sets, daily range): BP systolic 107–123; BP diastolic 39–48; PULSE 72–88; RESP 16; O2SAT 98
[~2023-06-11] MED LIST changes: +DOBUTamine 1000MCG/ML 250 ML IV ONE
== END | disposition home or self-care (01) ==
LOC: CHF HDHVI 08:26
PROVIDERS: ATTEND Internal Medicine Cardiovascular Disease
DX: I13.0 Hypertensive heart and chronic kidney disease with heart failure and stage 1 through stage 4 chronic kidney disease, or unspecified chronic kidney disease (principal); E11.22 Type 2 diabetes mellitus with diabetic chronic kidney disease; I50.43 Acute on chronic combined systolic (congestive) and diastolic (congestive) heart failure; N18.30 Chronic kidney disease, stage 3 unspecified; I25.5 Ischemic cardiomyopathy; I25.10 Atherosclerotic heart disease of native coronary artery without angina pectoris; I25.2 Old myocardial infarction; I48.0 Paroxysmal atrial fibrillation; E11.40 Type 2 diabetes mellitus with diabetic neuropathy, unspecified; E11.51 Type 2 diabetes mellitus with diabetic peripheral angiopathy without gangrene; E78.00 Pure hypercholesterolemia, unspecified; E03.9 Hypothyroidism, unspecified; D51.9 Vitamin B12 deficiency anemia, unspecified; Z95.810 Presence of automatic (implantable) cardiac defibrillator
CPT/HCPCS: 96365; 96366; G0463; J1250

== ENCOUNTER → 2023-06-13 | Outpatient (CLI) | payer MEDICARE ==
[2023-06-13] VITALS (9 sets, daily range): BP systolic 99–116; BP diastolic 33–44; PULSE 71–83; RESP 16; O2SAT 97
[~2023-06-13] MED LIST changes: +SODIUM FERR GLUC 62.5MG/5ML 125 MG in SODIUM CHL 0.9% 100 ML IV ONE; +SODIUM FERRIC GLUC CPLEX 62.5MG/5ML VIAL IV ONE
== END | disposition home or self-care (01) ==
LOC: CHF HDHVI 08:35
PROVIDERS: ATTEND Internal Medicine Cardiovascular Disease
DX: I13.0 Hypertensive heart and chronic kidney disease with heart failure and stage 1 through stage 4 chronic kidney disease, or unspecified chronic kidney disease (principal); E11.22 Type 2 diabetes mellitus with diabetic chronic kidney disease; N18.30 Chronic kidney disease, stage 3 unspecified; I50.23 Acute on chronic systolic (congestive) heart failure; I25.5 Ischemic cardiomyopathy; E61.1 Iron deficiency; D51.9 Vitamin B12 deficiency anemia, unspecified; I25.10 Atherosclerotic heart disease of native coronary artery without angina pectoris; E03.9 Hypothyroidism, unspecified; I25.2 Old myocardial infarction; I48.0 Paroxysmal atrial fibrillation; E78.00 Pure hypercholesterolemia, unspecified; E11.40 Type 2 diabetes mellitus with diabetic neuropathy, unspecified; E11.51 Type 2 diabetes mellitus with diabetic peripheral angiopathy without gangrene; Z95.810 Presence of automatic (implantable) cardiac defibrillator
CPT/HCPCS: 96365; 96366; 96368; G0463; J1250; J2916; 96367

== ENCOUNTER → 2023-06-18 | Outpatient (CLI) | payer MEDICARE ==
[~2023-06-18] VITALS: Ht 30.5 cm; Wt 61.7 kg
[2023-06-18] VITALS (9 sets, daily range): BP systolic 107–129; BP diastolic 42–51; PULSE 77–92; RESP 16; O2SAT 98
[~2023-06-18] MED LIST changes: +FUROSEMIDE 20 MG/2 ML VIAL ONE; +FUROSEMIDE 40 MG/4 ML VIAL IV ONE; +POTASSIUM CHL 10 Meq TABLET PO ONE; +POTASSIUM CHL 20 Meq TABLET PO ONE
== END | disposition home or self-care (01) ==
LOC: CHF HDHVI 08:29
PROVIDERS: ATTEND Internal Medicine Cardiovascular Disease
DX: I13.0 Hypertensive heart and chronic kidney disease with heart failure and stage 1 through stage 4 chronic kidney disease, or unspecified chronic kidney disease (principal); E11.22 Type 2 diabetes mellitus with diabetic chronic kidney disease; I50.43 Acute on chronic combined systolic (congestive) and diastolic (congestive) heart failure; N18.30 Chronic kidney disease, stage 3 unspecified; E61.1 Iron deficiency; I25.5 Ischemic cardiomyopathy; I25.10 Atherosclerotic heart disease of native coronary artery without angina pectoris; I25.2 Old myocardial infarction; I48.0 Paroxysmal atrial fibrillation; E11.40 Type 2 diabetes mellitus with diabetic neuropathy, unspecified; E11.51 Type 2 diabetes mellitus with diabetic peripheral angiopathy without gangrene; D51.9 Vitamin B12 deficiency anemia, unspecified; E03.9 Hypothyroidism, unspecified; Z95.810 Presence of automatic (implantable) cardiac defibrillator
CPT/HCPCS: 96365; 96366; 96368; 96375; G0463; J1250; J1940; J2916; 96367

== ENCOUNTER → 2023-06-20 | Outpatient (CLI) | payer MEDICARE ==
[2023-06-20] VITALS (9 sets, daily range): BP systolic 99–117; BP diastolic 39–55; PULSE 73–87; RESP 16; O2SAT 98
[~2023-06-20] VITALS: Ht 30.5 cm; Wt 62.6 kg
[~2023-06-20] MED LIST changes: -FUROSEMIDE 20 MG/2 ML VIAL ONE; +FUROSEMIDE 40 MG/4 ML VIAL ONE
== END | disposition home or self-care (01) ==
LOC: CHF HDHVI 08:36
PROVIDERS: ATTEND Internal Medicine Cardiovascular Disease
DX: I13.0 Hypertensive heart and chronic kidney disease with heart failure and stage 1 through stage 4 chronic kidney disease, or unspecified chronic kidney disease (principal); E11.22 Type 2 diabetes mellitus with diabetic chronic kidney disease; N18.30 Chronic kidney disease, stage 3 unspecified; I50.43 Acute on chronic combined systolic (congestive) and diastolic (congestive) heart failure; I25.5 Ischemic cardiomyopathy; I25.10 Atherosclerotic heart disease of native coronary artery without angina pectoris; E03.9 Hypothyroidism, unspecified; I25.2 Old myocardial infarction; I48.0 Paroxysmal atrial fibrillation; E11.40 Type 2 diabetes mellitus with diabetic neuropathy, unspecified; E11.51 Type 2 diabetes mellitus with diabetic peripheral angiopathy without gangrene; E78.00 Pure hypercholesterolemia, unspecified; Z95.810 Presence of automatic (implantable) cardiac defibrillator
CPT/HCPCS: 96365; 96366; 96368; 96375; G0463; J1250; J1940; J2916; 96367

== ENCOUNTER → 2023-06-25 | Outpatient (CLI) | payer MEDICARE ==
[2023-06-25] VITALS (9 sets, daily range): BP systolic 94–112; BP diastolic 32–42; PULSE 72–85; RESP 16; O2SAT 96
[~2023-06-25] MED LIST changes: +DOBUTamine 1000MCG/ML 0 ML IV ONE; -FUROSEMIDE 40 MG/4 ML VIAL IV ONE; -FUROSEMIDE 40 MG/4 ML VIAL ONE; -POTASSIUM CHL 10 Meq TABLET PO ONE; -POTASSIUM CHL 20 Meq TABLET PO ONE
== END | disposition home or self-care (01) ==
LOC: CHF HDHVI 09:06
PROVIDERS: ATTEND Internal Medicine Cardiovascular Disease
DX: I13.0 Hypertensive heart and chronic kidney disease with heart failure and stage 1 through stage 4 chronic kidney disease, or unspecified chronic kidney disease (principal); E11.22 Type 2 diabetes mellitus with diabetic chronic kidney disease; I50.43 Acute on chronic combined systolic (congestive) and diastolic (congestive) heart failure; N18.30 Chronic kidney disease, stage 3 unspecified; D50.9 Iron deficiency anemia, unspecified; D51.9 Vitamin B12 deficiency anemia, unspecified; I25.10 Atherosclerotic heart disease of native coronary artery without angina pectoris; I25.2 Old myocardial infarction; I25.5 Ischemic cardiomyopathy; I48.0 Paroxysmal atrial fibrillation; E11.40 Type 2 diabetes mellitus with diabetic neuropathy, unspecified; E11.51 Type 2 diabetes mellitus with diabetic peripheral angiopathy without gangrene; E78.00 Pure hypercholesterolemia, unspecified; E03.9 Hypothyroidism, unspecified; Z95.810 Presence of automatic (implantable) cardiac defibrillator
CPT/HCPCS: 96365; 96366; 96368; G0463; J1250; J2916; 96367

== ENCOUNTER → 2023-06-25 | Outpatient (CLI) | payer MEDICARE ==
[~2023-06-25] MED LIST changes: -DOBUTamine 1000MCG/ML 0 ML IV ONE; -DOBUTamine 1000MCG/ML 250 ML IV ONE; -SODIUM FERR GLUC 62.5MG/5ML 125 MG in SODIUM CHL 0.9% 100 ML IV ONE; -SODIUM FERRIC GLUC CPLEX 62.5MG/5ML VIAL IV ONE
[2023-06-25 13:55] LABS: Anion Gap 7 (5-15); Carbon Dioxide 22 mmol/L (20-30); Chloride 106 mmol/L (98-107); Potassium 4.4 mmol/L (3.5-5.1); Sodium 135 mmol/L (136-145)
[2023-06-25 13:56] LABS: Calcium 8.3 mg/dL (8.7-10.4)
[2023-06-25 14:00] LABS: Glucose 170 mg/dL (74-106)
[2023-06-25 14:01] LABS: BUN/Creatinine Ratio 23.2 (10.0-20.0); Blood Urea Nitrogen 33 mg/dL (9-23); Magnesium 2.4 mg/dL (1.6-2.6)
== END | disposition home or self-care (01) ==
LOC: LAB 13:10
PROVIDERS: ATTEND Internal Medicine Cardiovascular Disease
DX: I50.43 Acute on chronic combined systolic (congestive) and diastolic (congestive) heart failure (principal)
CPT/HCPCS: 36415; 80048; 83735; 83880

== ENCOUNTER → 2023-06-27 | Outpatient (CLI) | payer MEDICARE ==
[2023-06-27] VITALS (9 sets, daily range): BP systolic 106–118; BP diastolic 37–44; PULSE 68–82; RESP 16; O2SAT 98
[~2023-06-27] MED LIST changes: +BUMETANIDE 2.5mg/10ml (0.25 mg/ml) INJ IV ONE; +BUMETANIDE INJECTION 10 ML ONE; +DOBUTamine 1000MCG/ML 250 ML IV ONE; +POTASSIUM CHL 10 Meq TABLET PO ONE; +POTASSIUM CHL 20 Meq TABLET PO ONE; +SODIUM FERR GLUC 62.5MG/5ML 125 MG in SODIUM CHL 0.9% 100 ML IV ONE; +SODIUM FERRIC GLUC CPLEX 62.5MG/5ML VIAL IV ONE
== END | disposition home or self-care (01) ==
LOC: CHF HDHVI 08:18
PROVIDERS: ATTEND Internal Medicine Cardiovascular Disease
DX: I13.0 Hypertensive heart and chronic kidney disease with heart failure and stage 1 through stage 4 chronic kidney disease, or unspecified chronic kidney disease (principal); E11.22 Type 2 diabetes mellitus with diabetic chronic kidney disease; N18.30 Chronic kidney disease, stage 3 unspecified; I50.43 Acute on chronic combined systolic (congestive) and diastolic (congestive) heart failure; D50.9 Iron deficiency anemia, unspecified; I25.5 Ischemic cardiomyopathy; I25.10 Atherosclerotic heart disease of native coronary artery without angina pectoris; E03.9 Hypothyroidism, unspecified; I25.2 Old myocardial infarction; I48.0 Paroxysmal atrial fibrillation; E78.00 Pure hypercholesterolemia, unspecified; E11.40 Type 2 diabetes mellitus with diabetic neuropathy, unspecified; E11.51 Type 2 diabetes mellitus with diabetic peripheral angiopathy without gangrene; Z95.810 Presence of automatic (implantable) cardiac defibrillator
CPT/HCPCS: 96365; 96366; 96368; 96375; G0463; J1250; J2916; 96367

== ENCOUNTER → 2023-07-02 | Outpatient (CLI) | payer MEDICARE ==
[2023-07-02] VITALS (10 sets, daily range): BP systolic 113–126; BP diastolic 39–47; PULSE 72–79; RESP 16; O2SAT 98
[~2023-07-02] MED LIST changes: +BUMETANIDE 1mg/4ml VIAL (0.25mg/ml) ONE; -BUMETANIDE INJECTION 10 ML ONE
== END | disposition home or self-care (01) ==
LOC: CHF HDHVI 08:15
PROVIDERS: ATTEND Internal Medicine Cardiovascular Disease
DX: I13.0 Hypertensive heart and chronic kidney disease with heart failure and stage 1 through stage 4 chronic kidney disease, or unspecified chronic kidney disease (principal); E11.22 Type 2 diabetes mellitus with diabetic chronic kidney disease; I50.43 Acute on chronic combined systolic (congestive) and diastolic (congestive) heart failure; N18.30 Chronic kidney disease, stage 3 unspecified; I25.5 Ischemic cardiomyopathy; I25.10 Atherosclerotic heart disease of native coronary artery without angina pectoris; I25.2 Old myocardial infarction; I48.0 Paroxysmal atrial fibrillation; E11.40 Type 2 diabetes mellitus with diabetic neuropathy, unspecified; E11.51 Type 2 diabetes mellitus with diabetic peripheral angiopathy without gangrene; E78.00 Pure hypercholesterolemia, unspecified; E03.9 Hypothyroidism, unspecified; Z95.810 Presence of automatic (implantable) cardiac defibrillator
CPT/HCPCS: 96365; 96366; 96368; 96375; G0463; J1250; J2916; J3490; 96367

== ENCOUNTER → 2023-07-04 | Outpatient (CLI) | payer MEDICARE ==
[2023-07-04] VITALS (9 sets, daily range): BP systolic 95–115; BP diastolic 33–41; PULSE 70–79; RESP 16; O2SAT 95
[~2023-07-04] MED LIST changes: +CYANOCOBALAMIN (B-12) 1000 MCG/1 ML VIAL IM ONE; +CYANOCOBALAMIN (B-12) 1000 MCG/1 ML VIAL ONE; -SODIUM FERR GLUC 62.5MG/5ML 125 MG in SODIUM CHL 0.9% 100 ML IV ONE; -SODIUM FERRIC GLUC CPLEX 62.5MG/5ML VIAL IV ONE
== END | disposition home or self-care (01) ==
LOC: CHF HDHVI 08:41
PROVIDERS: ATTEND Internal Medicine Cardiovascular Disease
DX: I13.0 Hypertensive heart and chronic kidney disease with heart failure and stage 1 through stage 4 chronic kidney disease, or unspecified chronic kidney disease (principal); E11.22 Type 2 diabetes mellitus with diabetic chronic kidney disease; I50.43 Acute on chronic combined systolic (congestive) and diastolic (congestive) heart failure; N18.30 Chronic kidney disease, stage 3 unspecified; D51.9 Vitamin B12 deficiency anemia, unspecified; I25.5 Ischemic cardiomyopathy; I25.10 Atherosclerotic heart disease of native coronary artery without angina pectoris; I25.2 Old myocardial infarction; I48.0 Paroxysmal atrial fibrillation; E11.40 Type 2 diabetes mellitus with diabetic neuropathy, unspecified; E11.51 Type 2 diabetes mellitus with diabetic peripheral angiopathy without gangrene; E78.00 Pure hypercholesterolemia, unspecified; E03.9 Hypothyroidism, unspecified; Z95.810 Presence of automatic (implantable) cardiac defibrillator
CPT/HCPCS: 96365; 96366; 96372; 96375; G0463; J1250; J3420; J3490

== ENCOUNTER → 2023-07-11 | Outpatient (CLI) | payer MEDICARE ==
[2023-07-11] VITALS (9 sets, daily range): BP systolic 115–129; BP diastolic 43–52; PULSE 74–84; RESP 16; O2SAT 97
[~2023-07-11] MED LIST changes: -BUMETANIDE 1mg/4ml VIAL (0.25mg/ml) ONE; -BUMETANIDE 2.5mg/10ml (0.25 mg/ml) INJ IV ONE; -CYANOCOBALAMIN (B-12) 1000 MCG/1 ML VIAL IM ONE; -CYANOCOBALAMIN (B-12) 1000 MCG/1 ML VIAL ONE; -DOBUTamine 1000MCG/ML 250 ML IV ONE; -POTASSIUM CHL 10 Meq TABLET PO ONE; -POTASSIUM CHL 20 Meq TABLET PO ONE
[2023-07-11] MEDS: DOBUTamine 1000MCG/ML 250 ML IV ONE ×2 (09:09→09:16)
[2023-07-11] MEDS: SODIUM FERRIC GLUC CPLEX 62.5MG/5ML VIAL IV ONE (09:09)
[2023-07-11] MEDS: BUMETANIDE INJECTION 10 ML ONE (09:09)
[2023-07-11] MEDS: POTASSIUM CHL 10 Meq TABLET PO ONE (09:09)
[2023-07-11] MEDS: BUMETANIDE 2.5mg/10ml (0.25 mg/ml) INJ IV ONE (09:32)
[2023-07-11] MEDS: PATIENTS OWN MEDICATION (FERRLECIT 125 MG) IV ONE (09:35)
[2023-07-11] MEDS: POTASSIUM CHL 20 Meq TABLET PO ONE (09:37)
== END | disposition home or self-care (01) ==
LOC: CHF HDHVI 09:01
PROVIDERS: ATTEND Internal Medicine Cardiovascular Disease
DX: D64.9 Anemia, unspecified (principal); I13.0 Hypertensive heart and chronic kidney disease with heart failure and stage 1 through stage 4 chronic kidney disease, or unspecified chronic kidney disease; E11.22 Type 2 diabetes mellitus with diabetic chronic kidney disease; N18.30 Chronic kidney disease, stage 3 unspecified; I50.43 Acute on chronic combined systolic (congestive) and diastolic (congestive) heart failure; I25.5 Ischemic cardiomyopathy; I25.10 Atherosclerotic heart disease of native coronary artery without angina pectoris; I25.2 Old myocardial infarction; E03.9 Hypothyroidism, unspecified; I48.0 Paroxysmal atrial fibrillation; E78.00 Pure hypercholesterolemia, unspecified; E11.40 Type 2 diabetes mellitus with diabetic neuropathy, unspecified; E11.51 Type 2 diabetes mellitus with diabetic peripheral angiopathy without gangrene; Z87.891 Personal history of nicotine dependence; Z95.810 Presence of automatic (implantable) cardiac defibrillator
CPT/HCPCS: 96365; 96366; 96368; 96375; G0463; J1250; J2916; 96367

== ENCOUNTER → 2023-07-16 | Outpatient (CLI) | payer MEDICARE ==
[2023-07-16] VITALS (9 sets, daily range): BP systolic 105–149; BP diastolic 37–49; PULSE 71–93; RESP 16; O2SAT 97
[~2023-07-16] VITALS: Ht 30.5 cm; Wt 0.5 kg
[~2023-07-16] MED LIST changes: +BUMETANIDE 2.5mg/10ml (0.25 mg/ml) INJ IV ONE; +BUMETANIDE INJECTION 10 ML ONE; +DOBUTamine 1000MCG/ML 250 ML IV ONE; +IRON SUCROSE 20 mg/ml 10ml VIAL IV ONE; +IRON SUCROSE COMPLEX 100 ML IV ONE; +POTASSIUM CHL 10 Meq TABLET PO ONE; +POTASSIUM CHL 20 Meq TABLET PO ONE
== END | disposition home or self-care (01) ==
LOC: CHF HDHVI 08:36
PROVIDERS: ATTEND Internal Medicine Cardiovascular Disease
DX: I13.0 Hypertensive heart and chronic kidney disease with heart failure and stage 1 through stage 4 chronic kidney disease, or unspecified chronic kidney disease (principal); E11.22 Type 2 diabetes mellitus with diabetic chronic kidney disease; N18.30 Chronic kidney disease, stage 3 unspecified; I50.43 Acute on chronic combined systolic (congestive) and diastolic (congestive) heart failure; D64.9 Anemia, unspecified; I25.5 Ischemic cardiomyopathy; I25.10 Atherosclerotic heart disease of native coronary artery without angina pectoris; E03.9 Hypothyroidism, unspecified; I25.2 Old myocardial infarction; I48.0 Paroxysmal atrial fibrillation; E11.40 Type 2 diabetes mellitus with diabetic neuropathy, unspecified; E11.51 Type 2 diabetes mellitus with diabetic peripheral angiopathy without gangrene; E78.00 Pure hypercholesterolemia, unspecified; Z95.810 Presence of automatic (implantable) cardiac defibrillator
CPT/HCPCS: 96365; 96366; 96368; 96375; G0463; J1250; J1756; 96367

== ENCOUNTER → 2023-07-18 | Outpatient (CLI) | payer MEDICARE ==
[2023-07-18] VITALS (9 sets, daily range): BP systolic 115–132; BP diastolic 37–49; PULSE 68–87; RESP 18; O2SAT 96
[~2023-07-18] MED LIST changes: -BUMETANIDE 2.5mg/10ml (0.25 mg/ml) INJ IV ONE; -BUMETANIDE INJECTION 10 ML ONE; -POTASSIUM CHL 10 Meq TABLET PO ONE; -POTASSIUM CHL 20 Meq TABLET PO ONE
== END | disposition home or self-care (01) ==
LOC: CHF HDHVI 09:58
PROVIDERS: ATTEND Internal Medicine Cardiovascular Disease
DX: D50.9 Iron deficiency anemia, unspecified (principal); I13.0 Hypertensive heart and chronic kidney disease with heart failure and stage 1 through stage 4 chronic kidney disease, or unspecified chronic kidney disease; E11.22 Type 2 diabetes mellitus with diabetic chronic kidney disease; N18.30 Chronic kidney disease, stage 3 unspecified; I50.43 Acute on chronic combined systolic (congestive) and diastolic (congestive) heart failure; I25.5 Ischemic cardiomyopathy; I25.10 Atherosclerotic heart disease of native coronary artery without angina pectoris; E03.9 Hypothyroidism, unspecified; I25.2 Old myocardial infarction; I48.0 Paroxysmal atrial fibrillation; E78.00 Pure hypercholesterolemia, unspecified; E11.40 Type 2 diabetes mellitus with diabetic neuropathy, unspecified; E11.51 Type 2 diabetes mellitus with diabetic peripheral angiopathy without gangrene; F17.200 Nicotine dependence, unspecified, uncomplicated; Z95.810 Presence of automatic (implantable) cardiac defibrillator
CPT/HCPCS: 96365; 96366; 96368; G0463; J1250; J1756; 96367

== ENCOUNTER → 2023-07-23 | Outpatient (CLI) | payer MEDICARE ==
[2023-07-23] VITALS (9 sets, daily range): BP systolic 107–133; BP diastolic 37–49; PULSE 64–84; RESP 16; O2SAT 99
== END | disposition home or self-care (01) ==
LOC: CHF HDHVI 08:17
PROVIDERS: ATTEND Internal Medicine Cardiovascular Disease
DX: I13.0 Hypertensive heart and chronic kidney disease with heart failure and stage 1 through stage 4 chronic kidney disease, or unspecified chronic kidney disease (principal); E11.22 Type 2 diabetes mellitus with diabetic chronic kidney disease; N18.30 Chronic kidney disease, stage 3 unspecified; I50.43 Acute on chronic combined systolic (congestive) and diastolic (congestive) heart failure; D64.9 Anemia, unspecified; I25.5 Ischemic cardiomyopathy; I25.10 Atherosclerotic heart disease of native coronary artery without angina pectoris; E03.9 Hypothyroidism, unspecified; I25.2 Old myocardial infarction; I48.0 Paroxysmal atrial fibrillation; E78.00 Pure hypercholesterolemia, unspecified; E11.40 Type 2 diabetes mellitus with diabetic neuropathy, unspecified; E11.51 Type 2 diabetes mellitus with diabetic peripheral angiopathy without gangrene; F17.200 Nicotine dependence, unspecified, uncomplicated; Z95.810 Presence of automatic (implantable) cardiac defibrillator
CPT/HCPCS: 96365; 96366; 96368; G0463; J1250; J1756; 96367

== ENCOUNTER → 2023-07-25 | Outpatient (CLI) | payer MEDICARE ==
[2023-07-25] VITALS (9 sets, daily range): BP systolic 122–131; BP diastolic 35–48; PULSE 69–83; RESP 16; O2SAT 98
[~2023-07-25] MED LIST changes: +BUMETANIDE 2.5mg/10ml (0.25 mg/ml) INJ IV ONE; +BUMETANIDE INJECTION 10 ML ONE; +POTASSIUM CHL 10 Meq TABLET PO ONE; +POTASSIUM CHL 20 Meq TABLET PO ONE
== END | disposition home or self-care (01) ==
LOC: CHF HDHVI 08:39
PROVIDERS: ATTEND Internal Medicine Cardiovascular Disease
DX: D50.9 Iron deficiency anemia, unspecified (principal); I13.0 Hypertensive heart and chronic kidney disease with heart failure and stage 1 through stage 4 chronic kidney disease, or unspecified chronic kidney disease; E11.22 Type 2 diabetes mellitus with diabetic chronic kidney disease; N18.30 Chronic kidney disease, stage 3 unspecified; I50.43 Acute on chronic combined systolic (congestive) and diastolic (congestive) heart failure; I25.5 Ischemic cardiomyopathy; I25.10 Atherosclerotic heart disease of native coronary artery without angina pectoris; E03.9 Hypothyroidism, unspecified; I25.2 Old myocardial infarction; I48.0 Paroxysmal atrial fibrillation; E78.00 Pure hypercholesterolemia, unspecified; E11.40 Type 2 diabetes mellitus with diabetic neuropathy, unspecified; E11.51 Type 2 diabetes mellitus with diabetic peripheral angiopathy without gangrene; F17.200 Nicotine dependence, unspecified, uncomplicated; Z95.810 Presence of automatic (implantable) cardiac defibrillator
CPT/HCPCS: 96365; 96366; 96368; 96375; G0463; J1250; J1756; 96367

== ENCOUNTER → 2023-07-30 | Outpatient (CLI) | payer MEDICARE ==
[2023-07-30] VITALS (10 sets, daily range): BP systolic 111–119; BP diastolic 32–46; PULSE 65–72; RESP 16; O2SAT 96
[~2023-07-30] MED LIST changes: -BUMETANIDE 2.5mg/10ml (0.25 mg/ml) INJ IV ONE; -BUMETANIDE INJECTION 10 ML ONE; -IRON SUCROSE 20 mg/ml 10ml VIAL IV ONE; -IRON SUCROSE COMPLEX 100 ML IV ONE; -POTASSIUM CHL 10 Meq TABLET PO ONE; -POTASSIUM CHL 20 Meq TABLET PO ONE; +SODIUM FERRIC GLUC CPLEX 62.5MG/5ML VIAL IV ONE
== END | disposition home or self-care (01) ==
LOC: CHF HDHVI 08:23
PROVIDERS: ATTEND Internal Medicine Cardiovascular Disease
DX: D64.9 Anemia, unspecified (principal); I13.0 Hypertensive heart and chronic kidney disease with heart failure and stage 1 through stage 4 chronic kidney disease, or unspecified chronic kidney disease; E11.22 Type 2 diabetes mellitus with diabetic chronic kidney disease; N18.30 Chronic kidney disease, stage 3 unspecified; I50.43 Acute on chronic combined systolic (congestive) and diastolic (congestive) heart failure; I25.5 Ischemic cardiomyopathy; I25.10 Atherosclerotic heart disease of native coronary artery without angina pectoris; E03.9 Hypothyroidism, unspecified; I25.2 Old myocardial infarction; I48.0 Paroxysmal atrial fibrillation; E78.00 Pure hypercholesterolemia, unspecified; E11.40 Type 2 diabetes mellitus with diabetic neuropathy, unspecified; E11.51 Type 2 diabetes mellitus with diabetic peripheral angiopathy without gangrene; Z95.810 Presence of automatic (implantable) cardiac defibrillator
CPT/HCPCS: 96365; 96366; 96368; G0463; J1250; J2916

== ENCOUNTER → 2023-08-01 | Outpatient (CLI) | payer MEDICARE ==
[2023-08-01] VITALS (9 sets, daily range): BP systolic 105–119; BP diastolic 38–45; PULSE 70–75; RESP 16; O2SAT 98
[~2023-08-01] MED LIST changes: -SODIUM FERRIC GLUC CPLEX 62.5MG/5ML VIAL IV ONE
[2023-08-01] MEDS: DOBUTamine 1000MCG/ML 250 ML IV ONE (08:47)
== END | disposition home or self-care (01) ==
LOC: CHF HDHVI 08:16
PROVIDERS: ATTEND Internal Medicine Cardiovascular Disease
DX: I13.0 Hypertensive heart and chronic kidney disease with heart failure and stage 1 through stage 4 chronic kidney disease, or unspecified chronic kidney disease (principal); E11.22 Type 2 diabetes mellitus with diabetic chronic kidney disease; N18.30 Chronic kidney disease, stage 3 unspecified; I50.43 Acute on chronic combined systolic (congestive) and diastolic (congestive) heart failure; I25.5 Ischemic cardiomyopathy; I25.10 Atherosclerotic heart disease of native coronary artery without angina pectoris; E03.9 Hypothyroidism, unspecified; I25.2 Old myocardial infarction; I48.0 Paroxysmal atrial fibrillation; E78.00 Pure hypercholesterolemia, unspecified; E11.40 Type 2 diabetes mellitus with diabetic neuropathy, unspecified; E11.51 Type 2 diabetes mellitus with diabetic peripheral angiopathy without gangrene; F17.200 Nicotine dependence, unspecified, uncomplicated; Z95.810 Presence of automatic (implantable) cardiac defibrillator
CPT/HCPCS: 96365; 96366; G0463; J1250

== ENCOUNTER → 2023-08-06 | Outpatient (CLI) | payer MEDICARE ==
[2023-08-06] VITALS (9 sets, daily range): BP systolic 103–133; BP diastolic 31–45; PULSE 75–80; RESP 16; O2SAT 97
[~2023-08-06] MED LIST changes: -DOBUTamine 1000MCG/ML 250 ML IV ONE
[2023-08-06] MEDS: DOBUTamine 1000MCG/ML 250 ML IV ONE ×2 (08:25→08:29)
== END | disposition home or self-care (01) ==
LOC: CHF HDHVI 08:23
PROVIDERS: ATTEND Internal Medicine Cardiovascular Disease
DX: I13.0 Hypertensive heart and chronic kidney disease with heart failure and stage 1 through stage 4 chronic kidney disease, or unspecified chronic kidney disease (principal); E11.22 Type 2 diabetes mellitus with diabetic chronic kidney disease; I50.43 Acute on chronic combined systolic (congestive) and diastolic (congestive) heart failure; N18.30 Chronic kidney disease, stage 3 unspecified; I25.5 Ischemic cardiomyopathy; I25.10 Atherosclerotic heart disease of native coronary artery without angina pectoris; I25.2 Old myocardial infarction; I48.0 Paroxysmal atrial fibrillation; E11.40 Type 2 diabetes mellitus with diabetic neuropathy, unspecified; E11.51 Type 2 diabetes mellitus with diabetic peripheral angiopathy without gangrene; E03.9 Hypothyroidism, unspecified; E78.00 Pure hypercholesterolemia, unspecified; Z87.891 Personal history of nicotine dependence; Z95.810 Presence of automatic (implantable) cardiac defibrillator
CPT/HCPCS: 96365; 96366; G0463; J1250

== ENCOUNTER → 2023-08-08 | Outpatient (CLI) | payer MEDICARE ==
[2023-08-08 12:56] LABS: Basophils # (auto) 0 10 ^3/uL (0-0.2); Basophils % (auto) 0.9 % (0.0-2.0); Eosinophils # (auto) 0.1 10 ^3/uL (0-0.8); Eosinophils % (auto) 2.8 % (0.0-7.0); Hematocrit 32.7 % (41.0-53.0); Hemoglobin 10.7 g/dL (13.5-17.5); Lymphocytes # (auto) 1.1 10 ^3/uL (0.4-5.4); Mean Corpuscular Hemoglobin 32.3 pg (28.0-32.0); Mean Corpuscular Hgb Conc. 32.8 g/dL (32.0-36.0); Mean Corpuscular Volume 98.6 fL (80.0-100.0); Monocytes # (auto) 0.4 10 ^3/uL (0-1.3); Monocytes % (auto) 8.6 % (0.0-12.0); Neutrophils # (auto) 2.5 10 ^3/uL (1.6-8.6); Neutrophils % (auto) 60.7 % (37.0-80.0); Nucleated Red Blood Cells % 0.1 %; Red Blood Cells 3.32 10^6/uL (4.5-5.90); Red Cell Distribution Width 16.5 % (11.8-14.3); White Blood Cell 4.1 10^3/uL (4.4-10.8)
[2023-08-08 14:00] LABS: Alanine Aminotransferase 55 U/L (7-40); Albumin 4.1 g/dL (3.2-4.8); Alkaline Phosphatase 50 U/L (46-116); Anion Gap 5 (5-15); Aspartate Aminotransferase 44 U/L (13-40); BUN/Creatinine Ratio 29.3 (10.0-20.0); Bilirubin, Total 0.4 mg/dL (0.2-1.0); Blood Urea Nitrogen 51 mg/dL (9-23); Calcium 8.9 mg/dL (8.7-10.4); Carbon Dioxide 27 mmol/L (20-30); Chloride 106 mmol/L (98-107); Glucose 165 mg/dL (74-106); Magnesium 2.5 mg/dL (1.6-2.6); Potassium 4.5 mmol/L (3.5-5.1); Sodium 138 mmol/L (136-145); Total Protein 7.6 g/dL (5.7-8.2)
== END | disposition home or self-care (01) ==
LOC: LAB 12:38
PROVIDERS: ATTEND Internal Medicine Cardiovascular Disease
DX: I11.0 Hypertensive heart disease with heart failure (principal); I50.43 Acute on chronic combined systolic (congestive) and diastolic (congestive) heart failure; D64.9 Anemia, unspecified
CPT/HCPCS: 36415; 80053; 82728; 83540; 83550; 83735; 83880; 85025

== ENCOUNTER → 2023-08-08 | Outpatient (CLI) | payer MEDICARE ==
[2023-08-08] VITALS (9 sets, daily range): BP systolic 97–119; BP diastolic 36–40; PULSE 68–78; RESP 16; O2SAT 97
[2023-08-08] MEDS: DOBUTamine 1000MCG/ML 250 ML IV ONE ×2 (09:09→09:14)
[2023-08-08] MEDS: CYANOCOBALAMIN (B-12) 1000 MCG/1 ML VIAL ONE (09:48)
[2023-08-08] MEDS: CYANOCOBALAMIN (B-12) 1000 MCG/1 ML VIAL IM ONE (12:21)
== END | disposition home or self-care (01) ==
LOC: CHF HDHVI 09:00
PROVIDERS: ATTEND Internal Medicine Cardiovascular Disease
DX: I13.0 Hypertensive heart and chronic kidney disease with heart failure and stage 1 through stage 4 chronic kidney disease, or unspecified chronic kidney disease (principal); E11.22 Type 2 diabetes mellitus with diabetic chronic kidney disease; N18.30 Chronic kidney disease, stage 3 unspecified; I50.43 Acute on chronic combined systolic (congestive) and diastolic (congestive) heart failure; I25.5 Ischemic cardiomyopathy; I25.10 Atherosclerotic heart disease of native coronary artery without angina pectoris; E03.9 Hypothyroidism, unspecified; I25.2 Old myocardial infarction; I48.0 Paroxysmal atrial fibrillation; E78.00 Pure hypercholesterolemia, unspecified; E11.40 Type 2 diabetes mellitus with diabetic neuropathy, unspecified; E11.51 Type 2 diabetes mellitus with diabetic peripheral angiopathy without gangrene; Z87.891 Personal history of nicotine dependence; Z95.810 Presence of automatic (implantable) cardiac defibrillator
CPT/HCPCS: 96365; 96366; 96372; G0463; J1250; J3420

== ENCOUNTER → 2023-08-13 | Outpatient (CLI) | payer MEDICARE ==
[2023-08-13] VITALS (10 sets, daily range): BP systolic 108–129; BP diastolic 37–81; PULSE 74–90; RESP 20; O2SAT 98
[2023-08-13] MEDS: PATIENTS OWN MEDICATION (FERRLECIT 125 MG) IV ONE (08:25)
[2023-08-13] MEDS: DOBUTamine 1000MCG/ML 250 ML IV ONE ×2 (08:28→08:35)
[2023-08-13] MEDS: SODIUM FERRIC GLUC CPLEX 62.5MG/5ML VIAL IV ONE (08:33)
== END | disposition home or self-care (01) ==
LOC: CHF HDHVI 08:19
PROVIDERS: ATTEND Internal Medicine Cardiovascular Disease
DX: I13.0 Hypertensive heart and chronic kidney disease with heart failure and stage 1 through stage 4 chronic kidney disease, or unspecified chronic kidney disease (principal); E11.22 Type 2 diabetes mellitus with diabetic chronic kidney disease; I50.43 Acute on chronic combined systolic (congestive) and diastolic (congestive) heart failure; N18.30 Chronic kidney disease, stage 3 unspecified; I25.5 Ischemic cardiomyopathy; I25.10 Atherosclerotic heart disease of native coronary artery without angina pectoris; I25.2 Old myocardial infarction; I48.0 Paroxysmal atrial fibrillation; E11.40 Type 2 diabetes mellitus with diabetic neuropathy, unspecified; E11.51 Type 2 diabetes mellitus with diabetic peripheral angiopathy without gangrene; E78.00 Pure hypercholesterolemia, unspecified; E03.9 Hypothyroidism, unspecified; Z87.891 Personal history of nicotine dependence; Z79.899 Other long term (current) drug therapy; Z95.810 Presence of automatic (implantable) cardiac defibrillator
CPT/HCPCS: 96365; 96366; 96368; G0463; J1250; J2916

== ENCOUNTER → 2023-08-15 | Outpatient (CLI) | payer MEDICARE ==
[2023-08-15] VITALS (9 sets, daily range): BP systolic 97–120; BP diastolic 32–40; PULSE 67–76; RESP 16; O2SAT 96
[2023-08-15] MEDS: DOBUTamine 1000MCG/ML 250 ML IV ONE ×2 (08:37→08:40)
== END | disposition home or self-care (01) ==
LOC: CHF HDHVI 08:18
PROVIDERS: ATTEND Internal Medicine Cardiovascular Disease
DX: I13.0 Hypertensive heart and chronic kidney disease with heart failure and stage 1 through stage 4 chronic kidney disease, or unspecified chronic kidney disease (principal); E11.22 Type 2 diabetes mellitus with diabetic chronic kidney disease; I50.43 Acute on chronic combined systolic (congestive) and diastolic (congestive) heart failure; N18.30 Chronic kidney disease, stage 3 unspecified; I25.5 Ischemic cardiomyopathy; I25.10 Atherosclerotic heart disease of native coronary artery without angina pectoris; I25.2 Old myocardial infarction; I48.0 Paroxysmal atrial fibrillation; E11.51 Type 2 diabetes mellitus with diabetic peripheral angiopathy without gangrene; E11.40 Type 2 diabetes mellitus with diabetic neuropathy, unspecified; E78.00 Pure hypercholesterolemia, unspecified; E03.9 Hypothyroidism, unspecified; Z87.891 Personal history of nicotine dependence; Z79.899 Other long term (current) drug therapy; Z95.810 Presence of automatic (implantable) cardiac defibrillator
CPT/HCPCS: 96365; 96366; G0463; J1250

== ENCOUNTER → 2023-08-20 | Outpatient (CLI) | payer MEDICARE ==
[2023-08-20] VITALS (10 sets, daily range): BP systolic 103–117; BP diastolic 35–45; PULSE 74–82; RESP 16; O2SAT 95
[2023-08-20] MEDS: DOBUTamine 1000MCG/ML 250 ML IV ONE ×2 (08:15→08:19)
[2023-08-20] MEDS: POTASSIUM CHL 10 Meq TABLET PO ONE (10:12)
[2023-08-20] MEDS: BUMETANIDE 1mg/4ml VIAL (0.25mg/ml) ONE (10:13)
[2023-08-20] MEDS: BUMETANIDE 2.5mg/10ml (0.25 mg/ml) INJ IV ONE (10:18)
[2023-08-20] MEDS: POTASSIUM CHL 20 Meq TABLET PO ONE (10:21)
== END | disposition home or self-care (01) ==
LOC: CHF HDHVI 08:12
PROVIDERS: ATTEND Internal Medicine Cardiovascular Disease
DX: I13.0 Hypertensive heart and chronic kidney disease with heart failure and stage 1 through stage 4 chronic kidney disease, or unspecified chronic kidney disease (principal); E11.22 Type 2 diabetes mellitus with diabetic chronic kidney disease; I50.43 Acute on chronic combined systolic (congestive) and diastolic (congestive) heart failure; N18.30 Chronic kidney disease, stage 3 unspecified; I25.5 Ischemic cardiomyopathy; I25.10 Atherosclerotic heart disease of native coronary artery without angina pectoris; I48.0 Paroxysmal atrial fibrillation; E11.51 Type 2 diabetes mellitus with diabetic peripheral angiopathy without gangrene; E11.40 Type 2 diabetes mellitus with diabetic neuropathy, unspecified; E78.00 Pure hypercholesterolemia, unspecified; E03.9 Hypothyroidism, unspecified; Z87.891 Personal history of nicotine dependence; Z79.899 Other long term (current) drug therapy; Z95.810 Presence of automatic (implantable) cardiac defibrillator
CPT/HCPCS: 96365; 96366; 96375; G0463; J1250; J3490

== ENCOUNTER → 2023-08-22 | Outpatient (CLI) | payer MEDICARE ==
[2023-08-22] VITALS (9 sets, daily range): BP systolic 101–134; BP diastolic 34–43; PULSE 66–81; RESP 16; O2SAT 96
[2023-08-22] MEDS: DOBUTamine 1000MCG/ML 250 ML IV ONE ×2 (08:49→08:53)
[2023-08-22] MEDS: POTASSIUM CHL 10 Meq TABLET PO ONE (09:25)
[2023-08-22] MEDS: BUMETANIDE INJECTION 10 ML ONE (09:25)
[2023-08-22] MEDS: BUMETANIDE 2.5mg/10ml (0.25 mg/ml) INJ IV ONE (10:33)
[2023-08-22] MEDS: POTASSIUM CHL 20 Meq TABLET PO ONE (10:42)
== END | disposition home or self-care (01) ==
LOC: CHF HDHVI 08:22
PROVIDERS: ATTEND Internal Medicine Cardiovascular Disease
DX: I13.0 Hypertensive heart and chronic kidney disease with heart failure and stage 1 through stage 4 chronic kidney disease, or unspecified chronic kidney disease (principal); E11.22 Type 2 diabetes mellitus with diabetic chronic kidney disease; N18.30 Chronic kidney disease, stage 3 unspecified; I50.43 Acute on chronic combined systolic (congestive) and diastolic (congestive) heart failure; I25.5 Ischemic cardiomyopathy; I25.10 Atherosclerotic heart disease of native coronary artery without angina pectoris; I25.2 Old myocardial infarction; E03.9 Hypothyroidism, unspecified; I48.0 Paroxysmal atrial fibrillation; E78.00 Pure hypercholesterolemia, unspecified; E11.40 Type 2 diabetes mellitus with diabetic neuropathy, unspecified; E11.51 Type 2 diabetes mellitus with diabetic peripheral angiopathy without gangrene; Z79.899 Other long term (current) drug therapy; Z87.891 Personal history of nicotine dependence; Z95.810 Presence of automatic (implantable) cardiac defibrillator
CPT/HCPCS: 96365; 96366; 96375; G0463; J1250

== ENCOUNTER → 2023-08-27 | Outpatient (CLI) | payer MEDICARE ==
[2023-08-27] VITALS (10 sets, daily range): BP systolic 102–118; BP diastolic 34–42; PULSE 72–79; RESP 16; O2SAT 96
[2023-08-27] MEDS: DOBUTamine 1000MCG/ML 250 ML IV ONE ×2 (08:14→08:22)
== END | disposition home or self-care (01) ==
LOC: CHF HDHVI 08:09
PROVIDERS: ATTEND Internal Medicine Cardiovascular Disease
DX: I13.0 Hypertensive heart and chronic kidney disease with heart failure and stage 1 through stage 4 chronic kidney disease, or unspecified chronic kidney disease (principal); E11.22 Type 2 diabetes mellitus with diabetic chronic kidney disease; I50.43 Acute on chronic combined systolic (congestive) and diastolic (congestive) heart failure; N18.30 Chronic kidney disease, stage 3 unspecified; I25.5 Ischemic cardiomyopathy; I25.10 Atherosclerotic heart disease of native coronary artery without angina pectoris; I25.2 Old myocardial infarction; I48.0 Paroxysmal atrial fibrillation; E11.40 Type 2 diabetes mellitus with diabetic neuropathy, unspecified; E11.51 Type 2 diabetes mellitus with diabetic peripheral angiopathy without gangrene; E03.9 Hypothyroidism, unspecified; E78.00 Pure hypercholesterolemia, unspecified; Z87.891 Personal history of nicotine dependence; Z79.899 Other long term (current) drug therapy; Z95.810 Presence of automatic (implantable) cardiac defibrillator
CPT/HCPCS: 96365; 96366; G0463; J1250

== ENCOUNTER → 2023-08-27 | Outpatient (CLI) | payer MEDICARE ==
[2023-08-27 12:25] LABS: Basophils # (auto) 0 10 ^3/uL (0-0.2); Basophils % (auto) 0.9 % (0.0-2.0); Eosinophils # (auto) 0.1 10 ^3/uL (0-0.8); Hemoglobin 10.4 g/dL (13.5-17.5); Lymphocytes % (auto) 24.5 % (10.0-50.0); Mean Corpuscular Hemoglobin 33.3 pg (28.0-32.0); Mean Corpuscular Hgb Conc. 33.6 g/dL (32.0-36.0); Mean Corpuscular Volume 99.1 fL (80.0-100.0); Monocytes # (auto) 0.3 10 ^3/uL (0-1.3); Monocytes % (auto) 7.9 % (0.0-12.0); Neutrophils # (auto) 2.6 10 ^3/uL (1.6-8.6); Neutrophils % (auto) 64.7 % (37.0-80.0); Red Blood Cells 3.13 10^6/uL (4.5-5.90); Red Cell Distribution Width 17.3 % (11.8-14.3)
[2023-08-27 12:38] LABS: Alanine Aminotransferase 52 U/L (7-40); Alkaline Phosphatase 56 U/L (46-116); Anion Gap 4 (5-15); Aspartate Aminotransferase 47 U/L (13-40); BUN/Creatinine Ratio 25.6 (10.0-20.0); Bilirubin, Total 0.5 mg/dL (0.2-1.0); Blood Urea Nitrogen 43 mg/dL (9-23); Calcium 8.6 mg/dL (8.7-10.4); Carbon Dioxide 27 mmol/L (20-30); Chloride 107 mmol/L (98-107); Glucose 173 mg/dL (74-106); Magnesium 2.4 mg/dL (1.6-2.6); Potassium 4.5 mmol/L (3.5-5.1); Sodium 138 mmol/L (136-145); Total Protein 7.5 g/dL (5.7-8.2)
== END | disposition home or self-care (01) ==
LOC: LAB 11:59
PROVIDERS: ATTEND Internal Medicine Cardiovascular Disease
DX: I11.0 Hypertensive heart disease with heart failure (principal); I50.43 Acute on chronic combined systolic (congestive) and diastolic (congestive) heart failure; D64.9 Anemia, unspecified
CPT/HCPCS: 36415; 80053; 83735; 83880; 85025

== ENCOUNTER → 2023-09-03 | Outpatient (CLI) | payer MEDICARE ==
[2023-09-03] VITALS (12 sets, daily range): BP systolic 103–120; BP diastolic 36–41; PULSE 70–80; RESP 16; O2SAT 98
[2023-09-03] MEDS: DOBUTamine 1000MCG/ML 250 ML IV ONE ×2 (08:27→08:30)
== END | disposition home or self-care (01) ==
LOC: CHF HDHVI 08:23
PROVIDERS: ATTEND Internal Medicine Cardiovascular Disease
DX: I13.0 Hypertensive heart and chronic kidney disease with heart failure and stage 1 through stage 4 chronic kidney disease, or unspecified chronic kidney disease (principal); E11.22 Type 2 diabetes mellitus with diabetic chronic kidney disease; N18.30 Chronic kidney disease, stage 3 unspecified; I50.43 Acute on chronic combined systolic (congestive) and diastolic (congestive) heart failure; I25.5 Ischemic cardiomyopathy; I25.10 Atherosclerotic heart disease of native coronary artery without angina pectoris; E03.9 Hypothyroidism, unspecified; I25.2 Old myocardial infarction; I48.0 Paroxysmal atrial fibrillation; E78.00 Pure hypercholesterolemia, unspecified; E11.40 Type 2 diabetes mellitus with diabetic neuropathy, unspecified; E11.51 Type 2 diabetes mellitus with diabetic peripheral angiopathy without gangrene; Z79.899 Other long term (current) drug therapy; Z87.891 Personal history of nicotine dependence; Z95.810 Presence of automatic (implantable) cardiac defibrillator
CPT/HCPCS: 96365; 96366; G0463; J1250

== ENCOUNTER → 2023-09-05 | Outpatient (CLI) | payer MEDICARE ==
[2023-09-05] VITALS (11 sets, daily range): BP systolic 109–124; BP diastolic 36–43; PULSE 70–78; RESP 16; O2SAT 96
[2023-09-05] MEDS: DOBUTamine 1000MCG/ML 250 ML IV ONE ×2 (08:51→08:55)
[2023-09-05] MEDS: CYANOCOBALAMIN (B-12) 1000 MCG/1 ML VIAL ONE (11:03)
[2023-09-05] MEDS: CYANOCOBALAMIN (B-12) 1000 MCG/1 ML VIAL IM ONE (12:57)
== END | disposition home or self-care (01) ==
LOC: CHF HDHVI 08:27
PROVIDERS: ATTEND Internal Medicine Cardiovascular Disease
DX: I13.0 Hypertensive heart and chronic kidney disease with heart failure and stage 1 through stage 4 chronic kidney disease, or unspecified chronic kidney disease (principal); E11.22 Type 2 diabetes mellitus with diabetic chronic kidney disease; I50.43 Acute on chronic combined systolic (congestive) and diastolic (congestive) heart failure; N18.30 Chronic kidney disease, stage 3 unspecified; I25.5 Ischemic cardiomyopathy; I25.10 Atherosclerotic heart disease of native coronary artery without angina pectoris; I25.2 Old myocardial infarction; I48.0 Paroxysmal atrial fibrillation; E11.40 Type 2 diabetes mellitus with diabetic neuropathy, unspecified; E11.51 Type 2 diabetes mellitus with diabetic peripheral angiopathy without gangrene; D64.9 Anemia, unspecified; E03.9 Hypothyroidism, unspecified; E78.00 Pure hypercholesterolemia, unspecified; Z87.891 Personal history of nicotine dependence; Z95.810 Presence of automatic (implantable) cardiac defibrillator; Z79.899 Other long term (current) drug therapy
CPT/HCPCS: 96365; 96366; 96372; G0463; J1250; J3420

== ENCOUNTER → 2023-09-10 | Outpatient (CLI) | payer MEDICARE ==
[2023-09-10] VITALS (9 sets, daily range): BP systolic 94–114; BP diastolic 32–47; PULSE 68–90; RESP 16; O2SAT 97
[2023-09-10] MEDS: DOBUTamine 1000MCG/ML 250 ML IV ONE ×2 (08:53→09:03)
== END | disposition home or self-care (01) ==
LOC: CHF HDHVI 08:01
PROVIDERS: ATTEND Internal Medicine Cardiovascular Disease
DX: I13.0 Hypertensive heart and chronic kidney disease with heart failure and stage 1 through stage 4 chronic kidney disease, or unspecified chronic kidney disease (principal); E11.22 Type 2 diabetes mellitus with diabetic chronic kidney disease; I50.43 Acute on chronic combined systolic (congestive) and diastolic (congestive) heart failure; N18.30 Chronic kidney disease, stage 3 unspecified; I25.5 Ischemic cardiomyopathy; I25.10 Atherosclerotic heart disease of native coronary artery without angina pectoris; I25.2 Old myocardial infarction; I48.0 Paroxysmal atrial fibrillation; E11.42 Type 2 diabetes mellitus with diabetic polyneuropathy; E11.51 Type 2 diabetes mellitus with diabetic peripheral angiopathy without gangrene; E78.00 Pure hypercholesterolemia, unspecified; E03.9 Hypothyroidism, unspecified; Z79.899 Other long term (current) drug therapy; Z87.891 Personal history of nicotine dependence; Z95.810 Presence of automatic (implantable) cardiac defibrillator
CPT/HCPCS: 96365; 96366; G0463; J1250; J1642

== ENCOUNTER → 2023-09-12 | Outpatient (CLI) | payer MEDICARE ==
[2023-09-12] VITALS (11 sets, daily range): BP systolic 88–131; BP diastolic 32–53; PULSE 68–99; RESP 16; O2SAT 97
[2023-09-12] MEDS: DOBUTamine 1000MCG/ML 250 ML IV ONE ×2 (09:02→09:05)
== END | disposition home or self-care (01) ==
LOC: CHF HDHVI 08:29
PROVIDERS: ATTEND Internal Medicine Cardiovascular Disease
DX: I13.0 Hypertensive heart and chronic kidney disease with heart failure and stage 1 through stage 4 chronic kidney disease, or unspecified chronic kidney disease (principal); E11.22 Type 2 diabetes mellitus with diabetic chronic kidney disease; I50.43 Acute on chronic combined systolic (congestive) and diastolic (congestive) heart failure; N18.30 Chronic kidney disease, stage 3 unspecified; I25.5 Ischemic cardiomyopathy; I25.10 Atherosclerotic heart disease of native coronary artery without angina pectoris; I25.2 Old myocardial infarction; I48.0 Paroxysmal atrial fibrillation; E11.42 Type 2 diabetes mellitus with diabetic polyneuropathy; E11.51 Type 2 diabetes mellitus with diabetic peripheral angiopathy without gangrene; E78.00 Pure hypercholesterolemia, unspecified; Z87.891 Personal history of nicotine dependence; Z95.810 Presence of automatic (implantable) cardiac defibrillator
CPT/HCPCS: 96365; 96366; G0463; J1250; J1642

== ENCOUNTER → 2023-09-19 | Outpatient (CLI) | payer MEDICARE ==
[2023-09-19 13:57] LABS: Basophils # (auto) 0.1 10 ^3/uL (0-0.2); Basophils % (auto) 1.8 % (0.0-2.0); Eosinophils # (auto) 0.1 10 ^3/uL (0-0.8); Eosinophils % (auto) 2.3 % (0.0-7.0); Hematocrit 29.4 % (41.0-53.0); Hemoglobin 9.8 g/dL (13.5-17.5); Lymphocytes % (auto) 25.5 % (10.0-50.0); Monocytes # (auto) 0.3 10 ^3/uL (0-1.3); Monocytes % (auto) 6.6 % (0.0-12.0); Neutrophils # (auto) 2.5 10 ^3/uL (1.6-8.6); Neutrophils % (auto) 63.8 % (37.0-80.0); Nucleated Red Blood Cells % 0.1 %; Red Blood Cells 2.93 10^6/uL (4.5-5.90); White Blood Cell 3.9 10^3/uL (4.4-10.8)
[2023-09-19 13:58] LABS: Mean Corpuscular Hemoglobin 33.3 pg (28.0-32.0); Mean Corpuscular Hgb Conc. 33.2 g/dL (32.0-36.0); Mean Corpuscular Volume 100.3 fL (80.0-100.0); Red Cell Distribution Width 17.8 % (11.8-14.3)
[2023-09-19 14:42] LABS: Alanine Aminotransferase 46 U/L (7-40); Alkaline Phosphatase 55 U/L (46-116); Anion Gap 6 (5-15); Aspartate Aminotransferase 42 U/L (13-40); BUN/Creatinine Ratio 25.3 (10.0-20.0); Blood Urea Nitrogen 49 mg/dL (9-23); Carbon Dioxide 28 mmol/L (20-30); Chloride 104 mmol/L (98-107); Glucose 156 mg/dL (74-106); Magnesium 2.5 mg/dL (1.6-2.6); Potassium 4.7 mmol/L (3.5-5.1); Sodium 138 mmol/L (136-145)
[2023-09-19 14:43] LABS: Bilirubin, Total 0.6 mg/dL (0.2-1.0); Total Protein 7.6 g/dL (5.7-8.2)
== END | disposition home or self-care (01) ==
LOC: LAB 13:36
PROVIDERS: ATTEND Internal Medicine Cardiovascular Disease
DX: I11.0 Hypertensive heart disease with heart failure (principal); I50.43 Acute on chronic combined systolic (congestive) and diastolic (congestive) heart failure; D64.9 Anemia, unspecified
CPT/HCPCS: 36415; 80053; 83735; 83880; 85025

== ENCOUNTER → 2023-10-17 | Outpatient (CLI) | payer MEDICARE ==
[2023-10-17] VITALS (11 sets, daily range): BP systolic 97–127; BP diastolic 29–47; PULSE 71–89; RESP 16; O2SAT 95
[~2023-10-17] MED LIST changes: +POTA-215 PO; -POTA1TAB61 PO
[2023-10-17] MEDS: DOBUTamine 1000MCG/ML 250 ML IV ONE ×2 (08:42→08:50)
== END | disposition home or self-care (01) ==
LOC: CHF HDHVI 08:34
PROVIDERS: ATTEND Internal Medicine Cardiovascular Disease
DX: I13.0 Hypertensive heart and chronic kidney disease with heart failure and stage 1 through stage 4 chronic kidney disease, or unspecified chronic kidney disease (principal); E11.22 Type 2 diabetes mellitus with diabetic chronic kidney disease; N18.30 Chronic kidney disease, stage 3 unspecified; I50.43 Acute on chronic combined systolic (congestive) and diastolic (congestive) heart failure; I25.5 Ischemic cardiomyopathy; I25.10 Atherosclerotic heart disease of native coronary artery without angina pectoris; E03.9 Hypothyroidism, unspecified; I25.2 Old myocardial infarction; I48.0 Paroxysmal atrial fibrillation; E78.00 Pure hypercholesterolemia, unspecified; E11.42 Type 2 diabetes mellitus with diabetic polyneuropathy; E11.51 Type 2 diabetes mellitus with diabetic peripheral angiopathy without gangrene; Z79.899 Other long term (current) drug therapy; Z87.891 Personal history of nicotine dependence; Z95.810 Presence of automatic (implantable) cardiac defibrillator
CPT/HCPCS: 96365; 96366; G0463; J1250; J1642

== ENCOUNTER → 2023-10-17 | Outpatient (CLI) | payer MEDICARE ==
[2023-10-17 13:18] LABS: Basophils # (auto) 0 10 ^3/uL (0-0.2); Basophils % (auto) 0.8 % (0.0-2.0); Eosinophils # (auto) 0.1 10 ^3/uL (0-0.8); Lymphocytes # (auto) 0.8 10 ^3/uL (0.4-5.4); Monocytes # (auto) 0.3 10 ^3/uL (0-1.3); Neutrophils # (auto) 2.9 10 ^3/uL (1.6-8.6); Neutrophils % (auto) 70.5 % (37.0-80.0); White Blood Cell 4.1 10^3/uL (4.4-10.8)
[2023-10-17 13:23] LABS: Eosinophils % (auto) 1.4 % (0.0-7.0); Hematocrit 28.5 % (41.0-53.0); Lymphocytes % (auto) 19.9 % (10.0-50.0); Mean Corpuscular Hemoglobin 34.6 pg (28.0-32.0); Monocytes % (auto) 7.4 % (0.0-12.0); Red Blood Cells 2.88 10^6/uL (4.5-5.90)
[2023-10-17 13:45] LABS: Alanine Aminotransferase 41 U/L (7-40); Albumin 4.2 g/dL (3.2-4.8); Alkaline Phosphatase 61 U/L (46-116); Anion Gap 5 (5-15); Aspartate Aminotransferase 33 U/L (13-40); Calcium 9.2 mg/dL (8.7-10.4); Carbon Dioxide 28 mmol/L (20-30); Chloride 98 mmol/L (98-107); Glucose 326 mg/dL (74-106); Magnesium 2.5 mg/dL (1.6-2.6); Potassium 4.6 mmol/L (3.5-5.1); Sodium 131 mmol/L (136-145)
[2023-10-17 13:46] LABS: Bilirubin, Total 0.5 mg/dL (0.2-1.0); Total Protein 7.8 g/dL (5.7-8.2)
[2023-10-17 14:13] LABS: Blood Urea Nitrogen 80 mg/dL (9-23)
== END | disposition home or self-care (01) ==
LOC: LAB 13:06
PROVIDERS: ATTEND Internal Medicine Cardiovascular Disease
DX: I11.0 Hypertensive heart disease with heart failure (principal); I50.43 Acute on chronic combined systolic (congestive) and diastolic (congestive) heart failure; D64.9 Anemia, unspecified
CPT/HCPCS: 36415; 80053; 83735; 83880; 85025

== ENCOUNTER → 2023-10-29 | Outpatient (CLI) | payer MEDICARE ==
[2023-10-29] VITALS (12 sets, daily range): BP systolic 100–122; BP diastolic 25–75; PULSE 41–86; RESP 18; O2SAT 96
[2023-10-29] MEDS: DOBUTamine 1000MCG/ML 250 ML IV ONE ×2 (08:29→08:30)
== END | disposition home or self-care (01) ==
LOC: CHF HDHVI 08:01
PROVIDERS: ATTEND Internal Medicine Cardiovascular Disease
DX: I13.0 Hypertensive heart and chronic kidney disease with heart failure and stage 1 through stage 4 chronic kidney disease, or unspecified chronic kidney disease (principal); E11.22 Type 2 diabetes mellitus with diabetic chronic kidney disease; I50.43 Acute on chronic combined systolic (congestive) and diastolic (congestive) heart failure; N18.30 Chronic kidney disease, stage 3 unspecified; I25.10 Atherosclerotic heart disease of native coronary artery without angina pectoris; I25.5 Ischemic cardiomyopathy; I25.2 Old myocardial infarction; I48.0 Paroxysmal atrial fibrillation; E11.42 Type 2 diabetes mellitus with diabetic polyneuropathy; E11.51 Type 2 diabetes mellitus with diabetic peripheral angiopathy without gangrene; E78.00 Pure hypercholesterolemia, unspecified; E03.9 Hypothyroidism, unspecified; Z79.899 Other long term (current) drug therapy; Z87.891 Personal history of nicotine dependence; Z95.810 Presence of automatic (implantable) cardiac defibrillator
CPT/HCPCS: 96365; 96366; G0463; J1250; J1642

== ENCOUNTER → 2023-10-31 | Outpatient (CLI) | payer MEDICARE ==
[2023-10-31] VITALS (10 sets, daily range): BP systolic 83–116; BP diastolic 26–36; PULSE 39–79; RESP 16; O2SAT 97
[~2023-10-31] VITALS: Ht 30.5 cm; Wt 0.5 kg
[2023-10-31] MEDS: DOBUTamine 1000MCG/ML 250 ML IV ONE ×2 (08:44→08:54)
[2023-10-31] MEDS: CYANOCOBALAMIN (B-12) 1000 MCG/1 ML VIAL ONE (11:57)
[2023-10-31] MEDS: CYANOCOBALAMIN (B-12) 1000 MCG/1 ML VIAL IM ONE (12:32)
== END | disposition home or self-care (01) ==
LOC: CHF HDHVI 08:17
PROVIDERS: ATTEND Internal Medicine Cardiovascular Disease
DX: I13.0 Hypertensive heart and chronic kidney disease with heart failure and stage 1 through stage 4 chronic kidney disease, or unspecified chronic kidney disease (principal); E11.22 Type 2 diabetes mellitus with diabetic chronic kidney disease; I50.43 Acute on chronic combined systolic (congestive) and diastolic (congestive) heart failure; N18.30 Chronic kidney disease, stage 3 unspecified; I25.5 Ischemic cardiomyopathy; I95.9 Hypotension, unspecified; I25.10 Atherosclerotic heart disease of native coronary artery without angina pectoris; I25.2 Old myocardial infarction; I48.0 Paroxysmal atrial fibrillation; E11.51 Type 2 diabetes mellitus with diabetic peripheral angiopathy without gangrene; E11.42 Type 2 diabetes mellitus with diabetic polyneuropathy; E78.00 Pure hypercholesterolemia, unspecified; E03.9 Hypothyroidism, unspecified; Z79.899 Other long term (current) drug therapy; Z87.891 Personal history of nicotine dependence; Z95.810 Presence of automatic (implantable) cardiac defibrillator
CPT/HCPCS: 96365; 96366; 96372; G0463; J1250; J1642; J3420

== ENCOUNTER → 2023-11-05 | Outpatient (CLI) | payer MEDICARE ==
[2023-11-05 13:08] LABS: Basophils # (auto) 0.1 10 ^3/uL (0-0.2); Basophils % (auto) 1.2 % (0.0-2.0); Eosinophils # (auto) 0.1 10 ^3/uL (0-0.8); Eosinophils % (auto) 1.3 % (0.0-7.0); Hematocrit 26.7 % (41.0-53.0); Hemoglobin 9.1 g/dL (13.5-17.5); Lymphocytes # (auto) 1.2 10 ^3/uL (0.4-5.4); Mean Corpuscular Hemoglobin 34.4 pg (28.0-32.0); Mean Corpuscular Hgb Conc. 34.1 g/dL (32.0-36.0); Mean Corpuscular Volume 100.9 fL (80.0-100.0); Monocytes # (auto) 0.3 10 ^3/uL (0-1.3); Monocytes % (auto) 6.1 % (0.0-12.0); Neutrophils # (auto) 3.4 10 ^3/uL (1.6-8.6); Neutrophils % (auto) 68.4 % (37.0-80.0); Red Blood Cells 2.65 10^6/uL (4.5-5.90); Red Cell Distribution Width 16.2 % (11.8-14.3)
[2023-11-05 14:25] LABS: Alanine Aminotransferase 34 U/L (7-40); Albumin 4.2 g/dL (3.2-4.8); Alkaline Phosphatase 49 U/L (46-116); Anion Gap 9 (5-15); Aspartate Aminotransferase 32 U/L (13-40); BUN/Creatinine Ratio 25.9 (10.0-20.0); Bilirubin, Total 0.6 mg/dL (0.2-1.0); Blood Urea Nitrogen 62 mg/dL (9-23); Calcium 9.4 mg/dL (8.5-10.1); Carbon Dioxide 26 mmol/L (20-30); Chloride 104 mmol/L (98-107); Glucose 191 mg/dL (74-106); Magnesium 2.5 mg/dL (1.6-2.6); Potassium 4.3 mmol/L (3.5-5.1); Sodium 139 mmol/L (136-145); Total Protein 7.6 g/dL (5.7-8.2)
== END | disposition home or self-care (01) ==
LOC: LAB 12:56
PROVIDERS: ATTEND Internal Medicine Cardiovascular Disease
DX: I11.0 Hypertensive heart disease with heart failure (principal); I50.43 Acute on chronic combined systolic (congestive) and diastolic (congestive) heart failure; D64.9 Anemia, unspecified
CPT/HCPCS: 36415; 80053; 83735; 83880; 85025

== ENCOUNTER → 2023-11-05 | Outpatient (CLI) | payer MEDICARE ==
[2023-11-05] VITALS (13 sets, daily range): BP systolic 94–109; BP diastolic 27–44; PULSE 68–86; RESP 16; O2SAT 99
[~2023-11-05] VITALS: Ht 30.5 cm; Wt 63.0 kg
[2023-11-05] MEDS: DOBUTamine 1000MCG/ML 250 ML IV ONE ×2 (08:26→08:30)
== END | disposition home or self-care (01) ==
LOC: CHF HDHVI 08:02
PROVIDERS: ATTEND Internal Medicine Cardiovascular Disease
DX: I13.0 Hypertensive heart and chronic kidney disease with heart failure and stage 1 through stage 4 chronic kidney disease, or unspecified chronic kidney disease (principal); E11.22 Type 2 diabetes mellitus with diabetic chronic kidney disease; I50.43 Acute on chronic combined systolic (congestive) and diastolic (congestive) heart failure; N18.30 Chronic kidney disease, stage 3 unspecified; I25.5 Ischemic cardiomyopathy; I25.10 Atherosclerotic heart disease of native coronary artery without angina pectoris; I25.2 Old myocardial infarction; I48.0 Paroxysmal atrial fibrillation; E11.51 Type 2 diabetes mellitus with diabetic peripheral angiopathy without gangrene; E11.42 Type 2 diabetes mellitus with diabetic polyneuropathy; E78.00 Pure hypercholesterolemia, unspecified; Z79.899 Other long term (current) drug therapy; Z87.891 Personal history of nicotine dependence; Z95.810 Presence of automatic (implantable) cardiac defibrillator
CPT/HCPCS: 96365; 96366; G0463; J1250; J1642

== ENCOUNTER → 2023-11-12 | Outpatient (CLI) | payer MEDICARE ==
[2023-11-12] VITALS (12 sets, daily range): BP systolic 91–103; BP diastolic 26–40; PULSE 61–76; RESP 20; O2SAT 98
[2023-11-12] MEDS: DOBUTamine 1000MCG/ML 250 ML IV ONE ×2 (08:23→08:28)
== END | disposition home or self-care (01) ==
LOC: CHF HDHVI 08:02
PROVIDERS: ATTEND Internal Medicine Cardiovascular Disease
DX: I13.0 Hypertensive heart and chronic kidney disease with heart failure and stage 1 through stage 4 chronic kidney disease, or unspecified chronic kidney disease (principal); E11.22 Type 2 diabetes mellitus with diabetic chronic kidney disease; I50.43 Acute on chronic combined systolic (congestive) and diastolic (congestive) heart failure; N18.30 Chronic kidney disease, stage 3 unspecified; I25.5 Ischemic cardiomyopathy; I25.10 Atherosclerotic heart disease of native coronary artery without angina pectoris; I25.2 Old myocardial infarction; I48.0 Paroxysmal atrial fibrillation; E11.42 Type 2 diabetes mellitus with diabetic polyneuropathy; E11.51 Type 2 diabetes mellitus with diabetic peripheral angiopathy without gangrene; E78.00 Pure hypercholesterolemia, unspecified; E03.9 Hypothyroidism, unspecified; Z79.899 Other long term (current) drug therapy; Z87.891 Personal history of nicotine dependence; Z95.810 Presence of automatic (implantable) cardiac defibrillator
CPT/HCPCS: 96365; 96366; G0463; J1250; J1642

== ENCOUNTER → 2023-11-14 | Outpatient (CLI) | payer MEDICARE ==
[2023-11-14] VITALS (11 sets, daily range): BP systolic 89–108; BP diastolic 23–54; PULSE 40–76; RESP 16; O2SAT 97
[2023-11-14] MEDS: DOBUTamine 1000MCG/ML 250 ML IV ONE ×2 (08:40→08:49)
== END | disposition home or self-care (01) ==
LOC: CHF HDHVI 08:26
PROVIDERS: ATTEND Internal Medicine Cardiovascular Disease
DX: I13.0 Hypertensive heart and chronic kidney disease with heart failure and stage 1 through stage 4 chronic kidney disease, or unspecified chronic kidney disease (principal); E11.22 Type 2 diabetes mellitus with diabetic chronic kidney disease; N18.30 Chronic kidney disease, stage 3 unspecified; I50.43 Acute on chronic combined systolic (congestive) and diastolic (congestive) heart failure; I25.5 Ischemic cardiomyopathy; I25.10 Atherosclerotic heart disease of native coronary artery without angina pectoris; E03.9 Hypothyroidism, unspecified; I25.2 Old myocardial infarction; I48.0 Paroxysmal atrial fibrillation; E78.00 Pure hypercholesterolemia, unspecified; E11.42 Type 2 diabetes mellitus with diabetic polyneuropathy; E11.51 Type 2 diabetes mellitus with diabetic peripheral angiopathy without gangrene; Z79.899 Other long term (current) drug therapy; Z87.891 Personal history of nicotine dependence; Z95.810 Presence of automatic (implantable) cardiac defibrillator
CPT/HCPCS: 96365; 96366; G0463; J1250; J1642

== ENCOUNTER → 2023-11-19 | Outpatient (CLI) | payer MEDICARE ==
[2023-11-19] VITALS (12 sets, daily range): BP systolic 102–129; BP diastolic 29–49; PULSE 39–82; RESP 16; O2SAT 98
[2023-11-19] MEDS: DOBUTamine 1000MCG/ML 250 ML IV ONE ×2 (08:57→09:02)
== END | disposition home or self-care (01) ==
LOC: CHF HDHVI 08:02
PROVIDERS: ATTEND Internal Medicine Cardiovascular Disease
DX: I13.0 Hypertensive heart and chronic kidney disease with heart failure and stage 1 through stage 4 chronic kidney disease, or unspecified chronic kidney disease (principal); E11.22 Type 2 diabetes mellitus with diabetic chronic kidney disease; I50.43 Acute on chronic combined systolic (congestive) and diastolic (congestive) heart failure; N18.30 Chronic kidney disease, stage 3 unspecified; I25.5 Ischemic cardiomyopathy; I25.10 Atherosclerotic heart disease of native coronary artery without angina pectoris; I25.2 Old myocardial infarction; I48.0 Paroxysmal atrial fibrillation; E11.51 Type 2 diabetes mellitus with diabetic peripheral angiopathy without gangrene; E11.42 Type 2 diabetes mellitus with diabetic polyneuropathy; E78.00 Pure hypercholesterolemia, unspecified; E03.9 Hypothyroidism, unspecified; Z79.899 Other long term (current) drug therapy; Z87.891 Personal history of nicotine dependence; Z95.810 Presence of automatic (implantable) cardiac defibrillator
CPT/HCPCS: 96365; 96366; G0463; J1250; J1642

== ENCOUNTER → 2023-11-20 | Outpatient (CLI) | payer MEDICARE ==
[2023-11-20] VITALS (10 sets, daily range): BP systolic 90–121; BP diastolic 27–68; PULSE 58–81; RESP 16; O2SAT 97
[2023-11-20] MEDS: DOBUTamine 1000MCG/ML 250 ML IV ONE (08:41)
[2023-11-20] MEDS: DOBUTamine 1000MCG/ML 250 ML IV SCH (08:51)
== END | disposition home or self-care (01) ==
LOC: CHF HDHVI 08:35
PROVIDERS: ATTEND Internal Medicine Cardiovascular Disease
DX: I13.0 Hypertensive heart and chronic kidney disease with heart failure and stage 1 through stage 4 chronic kidney disease, or unspecified chronic kidney disease (principal); E11.22 Type 2 diabetes mellitus with diabetic chronic kidney disease; N18.30 Chronic kidney disease, stage 3 unspecified; I50.43 Acute on chronic combined systolic (congestive) and diastolic (congestive) heart failure; I25.5 Ischemic cardiomyopathy; I25.10 Atherosclerotic heart disease of native coronary artery without angina pectoris; E03.9 Hypothyroidism, unspecified; I25.2 Old myocardial infarction; I48.0 Paroxysmal atrial fibrillation; E78.00 Pure hypercholesterolemia, unspecified; E11.42 Type 2 diabetes mellitus with diabetic polyneuropathy; E11.51 Type 2 diabetes mellitus with diabetic peripheral angiopathy without gangrene; Z79.899 Other long term (current) drug therapy; Z87.891 Personal history of nicotine dependence; Z95.810 Presence of automatic (implantable) cardiac defibrillator
CPT/HCPCS: 96365; 96366; G0463; J1250; J1642

== ENCOUNTER → 2023-11-27 | Outpatient (CLI) | payer MEDICARE ==
[2023-11-27 10:14] VITALS: BP 98/44; PULSE 73; RESP 16; O2SAT 98
[2023-11-27] MEDS: cefTRIAXone 1GM/50ML D5W 50 ML IV SCH (10:14)
[2023-11-27] MEDS: cefTRIAXone 1GM/50ML D5W 50 ML IV ONE (10:21)
[2023-11-27] MEDS: CYANOCOBALAMIN (B-12) 1000 MCG/1 ML VIAL IM ONE (10:30)
[2023-11-27] MEDS: CYANOCOBALAMIN (B-12) 1000 MCG/1 ML VIAL ONE (10:30)
[2023-11-27 11:03] VITALS: BP 103/35; PULSE 66; RESP 16; O2SAT 98
== END | disposition home or self-care (01) ==
LOC: CHF HDHVI 10:13
PROVIDERS: ATTEND Internal Medicine Cardiovascular Disease
DX: M11.221 Other chondrocalcinosis, right elbow (principal); D64.9 Anemia, unspecified; I25.10 Atherosclerotic heart disease of native coronary artery without angina pectoris; I13.0 Hypertensive heart and chronic kidney disease with heart failure and stage 1 through stage 4 chronic kidney disease, or unspecified chronic kidney disease; E11.22 Type 2 diabetes mellitus with diabetic chronic kidney disease; N18.30 Chronic kidney disease, stage 3 unspecified; I50.43 Acute on chronic combined systolic (congestive) and diastolic (congestive) heart failure; I25.2 Old myocardial infarction; I48.0 Paroxysmal atrial fibrillation; E78.00 Pure hypercholesterolemia, unspecified; E11.42 Type 2 diabetes mellitus with diabetic polyneuropathy; E11.51 Type 2 diabetes mellitus with diabetic peripheral angiopathy without gangrene; E03.9 Hypothyroidism, unspecified; Z79.899 Other long term (current) drug therapy; Z87.891 Personal history of nicotine dependence; Z95.810 Presence of automatic (implantable) cardiac defibrillator
CPT/HCPCS: 96365; 96372; G0463; J0696; J1642; J3420

== ENCOUNTER → 2023-11-28 | Outpatient (CLI) | payer MEDICARE ==
[2023-11-28] VITALS (11 sets, daily range): BP systolic 91–122; BP diastolic 29–38; PULSE 64–81; RESP 16; O2SAT 98
[2023-11-28] MEDS: DOBUTamine 1000MCG/ML 250 ML IV ONE ×2 (08:48→08:57)
[2023-11-28] MEDS: TRIAMCINOLONE 40MG/ML 1ML VIAL ONE (10:50)
== END | disposition home or self-care (01) ==
LOC: CHF HDHVI 08:20
PROVIDERS: ATTEND Internal Medicine Cardiovascular Disease
DX: I13.0 Hypertensive heart and chronic kidney disease with heart failure and stage 1 through stage 4 chronic kidney disease, or unspecified chronic kidney disease (principal); E11.22 Type 2 diabetes mellitus with diabetic chronic kidney disease; I50.43 Acute on chronic combined systolic (congestive) and diastolic (congestive) heart failure; N18.30 Chronic kidney disease, stage 3 unspecified; I25.10 Atherosclerotic heart disease of native coronary artery without angina pectoris; I25.5 Ischemic cardiomyopathy; I25.2 Old myocardial infarction; I48.0 Paroxysmal atrial fibrillation; E11.42 Type 2 diabetes mellitus with diabetic polyneuropathy; E11.51 Type 2 diabetes mellitus with diabetic peripheral angiopathy without gangrene; E78.00 Pure hypercholesterolemia, unspecified; E03.9 Hypothyroidism, unspecified; Z87.891 Personal history of nicotine dependence; Z95.810 Presence of automatic (implantable) cardiac defibrillator
CPT/HCPCS: 96365; 96366; G0463; J1250; J1642

== ENCOUNTER 2023-12-10 07:56 | Day surgery (SDC) | payer MEDICARE ==
[2023-12-10] VITALS (12 sets, daily range): BP systolic 86–120; BP diastolic 40–65; PULSE 64–86; RESP 12–20; TEMP 97–98.1
== END 2023-12-10 16:05 | disposition home or self-care (01) ==
LOC: CATH 07:56
PROVIDERS: ATTEND Internal Medicine Cardiovascular Disease
DX: D64.9 Anemia, unspecified (principal); I13.0 Hypertensive heart and chronic kidney disease with heart failure and stage 1 through stage 4 chronic kidney disease, or unspecified chronic kidney disease; E11.22 Type 2 diabetes mellitus with diabetic chronic kidney disease; I50.43 Acute on chronic combined systolic (congestive) and diastolic (congestive) heart failure; N18.30 Chronic kidney disease, stage 3 unspecified; I25.10 Atherosclerotic heart disease of native coronary artery without angina pectoris; I25.5 Ischemic cardiomyopathy; I25.2 Old myocardial infarction; I48.0 Paroxysmal atrial fibrillation; E11.42 Type 2 diabetes mellitus with diabetic polyneuropathy; E11.51 Type 2 diabetes mellitus with diabetic peripheral angiopathy without gangrene; E78.00 Pure hypercholesterolemia, unspecified; Z79.899 Other long term (current) drug therapy; Z87.891 Personal history of nicotine dependence; Z95.810 Presence of automatic (implantable) cardiac defibrillator
CPT/HCPCS: 36430; 86850; 86900; 86901; 86920; P9016

== ENCOUNTER → 2023-12-17 | Outpatient (CLI) | payer MEDICARE ==
[2023-12-17 13:15] LABS: Basophils # (auto) 0 10 ^3/uL (0-0.2); Basophils % (auto) 0.7 % (0.0-2.0); Eosinophils # (auto) 0.1 10 ^3/uL (0-0.8); Eosinophils % (auto) 1.9 % (0.0-7.0); Hemoglobin 10.3 g/dL (13.5-17.5); Lymphocytes # (auto) 0.8 10 ^3/uL (0.4-5.4); Lymphocytes % (auto) 14.5 % (10.0-50.0); Mean Corpuscular Hemoglobin 33.2 pg (28.0-32.0); Mean Corpuscular Hgb Conc. 34.3 g/dL (32.0-36.0); Mean Corpuscular Volume 96.8 fL (80.0-100.0); Monocytes # (auto) 0.3 10 ^3/uL (0-1.3); Monocytes % (auto) 5.8 % (0.0-12.0); Neutrophils % (auto) 77.1 % (37.0-80.0); White Blood Cell 5.2 10^3/uL (4.4-10.8)
== END | disposition home or self-care (01) ==
LOC: LAB 13:03
PROVIDERS: ATTEND Internal Medicine Cardiovascular Disease
DX: D64.9 Anemia, unspecified (principal)
CPT/HCPCS: 36415; 85025

== ENCOUNTER → 2023-12-19 | Outpatient (CLI) | payer MEDICARE ==
[2023-12-19] VITALS (11 sets, daily range): BP systolic 94–124; BP diastolic 24–60; PULSE 65–72; RESP 16; O2SAT 96
[2023-12-19] MEDS: DOBUTamine 1000MCG/ML 250 ML IV ONE ×2 (08:41→08:50)
== END | disposition home or self-care (01) ==
LOC: CHF HDHVI 08:34
PROVIDERS: ATTEND Internal Medicine Cardiovascular Disease
DX: I13.0 Hypertensive heart and chronic kidney disease with heart failure and stage 1 through stage 4 chronic kidney disease, or unspecified chronic kidney disease (principal); E11.22 Type 2 diabetes mellitus with diabetic chronic kidney disease; I50.43 Acute on chronic combined systolic (congestive) and diastolic (congestive) heart failure; N18.30 Chronic kidney disease, stage 3 unspecified; I25.10 Atherosclerotic heart disease of native coronary artery without angina pectoris; E03.9 Hypothyroidism, unspecified; I25.2 Old myocardial infarction; I48.0 Paroxysmal atrial fibrillation; E78.00 Pure hypercholesterolemia, unspecified; E11.42 Type 2 diabetes mellitus with diabetic polyneuropathy; E11.51 Type 2 diabetes mellitus with diabetic peripheral angiopathy without gangrene; Z95.810 Presence of automatic (implantable) cardiac defibrillator; Z79.899 Other long term (current) drug therapy; Z87.891 Personal history of nicotine dependence
CPT/HCPCS: 96365; 96366; G0463; J1250; J1642

== ENCOUNTER → 2023-12-24 | Outpatient (CLI) | payer MEDICARE ==
[2023-12-24] VITALS (9 sets, daily range): BP systolic 93–119; BP diastolic 28–47; PULSE 65–87; RESP 16; O2SAT 99
[2023-12-24] MEDS: DOBUTamine 1000MCG/ML 250 ML IV ONE ×2 (08:38→09:43)
[2023-12-24] MEDS: ALBUMIN 25% 100 ML IV ONE ×2 (08:38→08:41)
== END | disposition home or self-care (01) ==
LOC: CHF HDHVI 08:04
PROVIDERS: ATTEND Internal Medicine Cardiovascular Disease
DX: I13.0 Hypertensive heart and chronic kidney disease with heart failure and stage 1 through stage 4 chronic kidney disease, or unspecified chronic kidney disease (principal); E11.22 Type 2 diabetes mellitus with diabetic chronic kidney disease; I50.43 Acute on chronic combined systolic (congestive) and diastolic (congestive) heart failure; N18.30 Chronic kidney disease, stage 3 unspecified; I95.0 Idiopathic hypotension; I25.10 Atherosclerotic heart disease of native coronary artery without angina pectoris; I25.5 Ischemic cardiomyopathy; I25.2 Old myocardial infarction; I48.0 Paroxysmal atrial fibrillation; E11.42 Type 2 diabetes mellitus with diabetic polyneuropathy; E11.51 Type 2 diabetes mellitus with diabetic peripheral angiopathy without gangrene; E78.00 Pure hypercholesterolemia, unspecified; E03.9 Hypothyroidism, unspecified; Z79.899 Other long term (current) drug therapy; Z87.891 Personal history of nicotine dependence; Z95.810 Presence of automatic (implantable) cardiac defibrillator
CPT/HCPCS: 96365; 96366; 96367; G0463; J1250; J1642; P9047

== ENCOUNTER → 2023-12-30 | Outpatient (CLI) | payer MEDICARE ==
[2023-12-30] VITALS (9 sets, daily range): BP systolic 95–107; BP diastolic 29–42; PULSE 65–78; RESP 16; O2SAT 95
[~2023-12-30] MED LIST changes: +DOBUTamine 1000MCG/ML 250 ML IV SCH
[2023-12-30] MEDS: DOBUTamine 1000MCG/ML 250 ML IV ONE ×2 (09:10)
== END | disposition home or self-care (01) ==
LOC: CHF HDHVI 07:57
PROVIDERS: ATTEND Internal Medicine Cardiovascular Disease
DX: I13.0 Hypertensive heart and chronic kidney disease with heart failure and stage 1 through stage 4 chronic kidney disease, or unspecified chronic kidney disease (principal); E11.22 Type 2 diabetes mellitus with diabetic chronic kidney disease; N18.30 Chronic kidney disease, stage 3 unspecified; I50.43 Acute on chronic combined systolic (congestive) and diastolic (congestive) heart failure; I25.5 Ischemic cardiomyopathy; I25.10 Atherosclerotic heart disease of native coronary artery without angina pectoris; E03.9 Hypothyroidism, unspecified; I25.2 Old myocardial infarction; I48.0 Paroxysmal atrial fibrillation; E78.00 Pure hypercholesterolemia, unspecified; E11.42 Type 2 diabetes mellitus with diabetic polyneuropathy; E11.51 Type 2 diabetes mellitus with diabetic peripheral angiopathy without gangrene; Z79.899 Other long term (current) drug therapy; Z87.891 Personal history of nicotine dependence; Z95.810 Presence of automatic (implantable) cardiac defibrillator
CPT/HCPCS: 96365; 96366; G0463; J1250

== ENCOUNTER → 2024-01-07 | Outpatient (CLI) | payer MEDICARE ==
[2024-01-07] VITALS (12 sets, daily range): BP systolic 92–112; BP diastolic 28–41; PULSE 65–76; RESP 16; O2SAT 95
[~2024-01-07] MED LIST changes: -DOBUTamine 1000MCG/ML 250 ML IV SCH
[2024-01-07] MEDS: DOBUTamine 1000MCG/ML 250 ML IV ONE ×2 (08:43→08:50)
== END | disposition home or self-care (01) ==
LOC: CHF HDHVI 08:06
PROVIDERS: ATTEND Internal Medicine Cardiovascular Disease
DX: I13.0 Hypertensive heart and chronic kidney disease with heart failure and stage 1 through stage 4 chronic kidney disease, or unspecified chronic kidney disease (principal); E11.22 Type 2 diabetes mellitus with diabetic chronic kidney disease; I50.43 Acute on chronic combined systolic (congestive) and diastolic (congestive) heart failure; N18.30 Chronic kidney disease, stage 3 unspecified; I25.10 Atherosclerotic heart disease of native coronary artery without angina pectoris; I25.5 Ischemic cardiomyopathy; I25.2 Old myocardial infarction; I48.0 Paroxysmal atrial fibrillation; E11.51 Type 2 diabetes mellitus with diabetic peripheral angiopathy without gangrene; E11.42 Type 2 diabetes mellitus with diabetic polyneuropathy; E03.9 Hypothyroidism, unspecified; E78.00 Pure hypercholesterolemia, unspecified; Z79.899 Other long term (current) drug therapy; Z87.891 Personal history of nicotine dependence; Z95.810 Presence of automatic (implantable) cardiac defibrillator
CPT/HCPCS: 96365; 96366; G0463; J1250; J1642

== ENCOUNTER → 2024-01-09 | Outpatient (CLI) | payer MEDICARE ==
[2024-01-09 07:59] LABS: Basophils # (auto) 0 10 ^3/uL (0-0.2); Eosinophils # (auto) 0.1 10 ^3/uL (0-0.8); Hemoglobin 7.6 g/dL (13.5-17.5); Lymphocytes # (auto) 1.1 10 ^3/uL (0.4-5.4); Monocytes # (auto) 0.3 10 ^3/uL (0-1.3); Monocytes % (auto) 8.2 % (0.0-12.0); Nucleated Red Blood Cells % 0.1 %; White Blood Cell 3.5 10^3/uL (4.4-10.8)
[2024-01-09 08:00] LABS: Basophils % (auto) 0.9 % (0.0-2.0); Eosinophils % (auto) 3.1 % (0.0-7.0); Hematocrit 22.5 % (41.0-53.0); Lymphocytes % (auto) 32.5 % (10.0-50.0); Mean Corpuscular Hemoglobin 32.8 pg (28.0-32.0); Mean Corpuscular Hgb Conc. 33.7 g/dL (32.0-36.0); Mean Corpuscular Volume 97.3 fL (80.0-100.0); Neutrophils # (auto) 1.9 10 ^3/uL (1.6-8.6); Neutrophils % (auto) 55.3 % (37.0-80.0); Red Blood Cells 2.31 10^6/uL (4.5-5.90); Red Cell Distribution Width 18.4 % (11.8-14.3)
[2024-01-09 08:18] LABS: Chloride 107 mmol/L (98-107); Potassium 4.5 mmol/L (3.5-5.1); Sodium 138 mmol/L (136-145)
[2024-01-09 08:19] LABS: Anion Gap 5 (5-15); Calcium 9.2 mg/dL (8.5-10.1); Carbon Dioxide 26 mmol/L (20-30)
[2024-01-09 08:24] LABS: BUN/Creatinine Ratio 24.2 (10.0-20.0); Blood Urea Nitrogen 53 mg/dL (9-23); Glucose 131 mg/dL (74-106)
[2024-01-09 08:25] LABS: Magnesium 2.2 mg/dL (1.6-2.6)
== END | disposition home or self-care (01) ==
LOC: LAB 07:49
PROVIDERS: ATTEND Internal Medicine Cardiovascular Disease
DX: I11.0 Hypertensive heart disease with heart failure (principal); I50.43 Acute on chronic combined systolic (congestive) and diastolic (congestive) heart failure; D64.9 Anemia, unspecified
CPT/HCPCS: 36415; 80048; 83735; 83880; 85025

== ENCOUNTER → 2024-01-09 | Outpatient (CLI) | payer MEDICARE ==
[2024-01-09] VITALS (11 sets, daily range): BP systolic 89–112; BP diastolic 27–35; PULSE 66–88; RESP 16; O2SAT 99
[2024-01-09] MEDS: DOBUTamine 1000MCG/ML 250 ML IV ONE ×2 (08:52→08:59)
[2024-01-09] MEDS: SODIUM FERRIC GLUC CPLEX 62.5MG/5ML VIAL IV ONE (11:18)
[2024-01-09] MEDS: SODIUM FERR GLUC 125 MG/in NS 100 ML IVPB KIT IV ONE (11:18)
== END | disposition home or self-care (01) ==
LOC: CHF HDHVI 08:15
PROVIDERS: ATTEND Internal Medicine Cardiovascular Disease
DX: I13.0 Hypertensive heart and chronic kidney disease with heart failure and stage 1 through stage 4 chronic kidney disease, or unspecified chronic kidney disease (principal); E11.22 Type 2 diabetes mellitus with diabetic chronic kidney disease; N18.30 Chronic kidney disease, stage 3 unspecified; I50.43 Acute on chronic combined systolic (congestive) and diastolic (congestive) heart failure; I25.5 Ischemic cardiomyopathy; I25.10 Atherosclerotic heart disease of native coronary artery without angina pectoris; E03.9 Hypothyroidism, unspecified; I25.2 Old myocardial infarction; I48.0 Paroxysmal atrial fibrillation; E78.00 Pure hypercholesterolemia, unspecified; E11.42 Type 2 diabetes mellitus with diabetic polyneuropathy; E11.51 Type 2 diabetes mellitus with diabetic peripheral angiopathy without gangrene; Z79.899 Other long term (current) drug therapy; Z87.891 Personal history of nicotine dependence; Z95.810 Presence of automatic (implantable) cardiac defibrillator
CPT/HCPCS: 96365; 96366; 96368; G0463; J1250; J1642; J2916; 96367

== ENCOUNTER → 2024-01-13 | Outpatient (CLI) | payer MEDICARE | END | disposition home or self-care (01) | LOC: LAB 09:50 | PROVIDERS: ATTEND Internal Medicine Cardiovascular Disease | DX: R19.5 Other fecal abnormalities (principal); D64.9 Anemia, unspecified | CPT/HCPCS: 82270 ==

== ENCOUNTER → 2024-01-14 | Outpatient (CLI) | payer MEDICARE ==
[2024-01-14] VITALS (12 sets, daily range): BP systolic 93–124; BP diastolic 27–49; PULSE 61–75; RESP 16; O2SAT 99
[~2024-01-14] VITALS: Ht 30.5 cm; Wt 60.4 kg
[2024-01-14] MEDS: DOBUTamine 1000MCG/ML 250 ML IV ONE ×2 (08:21→08:30)
[2024-01-14] MEDS: SODIUM FERRIC GLUC CPLEX 62.5MG/5ML VIAL IV ONE (08:43)
[2024-01-14] MEDS: SODIUM FERR GLUC 125 MG/in NS 100 ML IVPB KIT IV ONE (10:30)
== END | disposition home or self-care (01) ==
LOC: CHF HDHVI 08:07
PROVIDERS: ATTEND Internal Medicine Cardiovascular Disease
DX: I13.0 Hypertensive heart and chronic kidney disease with heart failure and stage 1 through stage 4 chronic kidney disease, or unspecified chronic kidney disease (principal); E11.22 Type 2 diabetes mellitus with diabetic chronic kidney disease; I50.43 Acute on chronic combined systolic (congestive) and diastolic (congestive) heart failure; N18.30 Chronic kidney disease, stage 3 unspecified; D64.9 Anemia, unspecified; I25.10 Atherosclerotic heart disease of native coronary artery without angina pectoris; I25.5 Ischemic cardiomyopathy; I25.2 Old myocardial infarction; I48.0 Paroxysmal atrial fibrillation; E78.00 Pure hypercholesterolemia, unspecified; E03.9 Hypothyroidism, unspecified; E11.51 Type 2 diabetes mellitus with diabetic peripheral angiopathy without gangrene; E11.42 Type 2 diabetes mellitus with diabetic polyneuropathy; Z87.891 Personal history of nicotine dependence; Z95.810 Presence of automatic (implantable) cardiac defibrillator; Z79.899 Other long term (current) drug therapy
CPT/HCPCS: 96365; 96366; 96368; G0463; J1250; J1642; J2916

== ENCOUNTER → 2024-01-16 | Outpatient (CLI) | payer MEDICARE ==
[2024-01-16 13:34] LABS: Basophils # (auto) 0 10 ^3/uL (0-0.2); Basophils % (auto) 0.7 % (0.0-2.0); Eosinophils # (auto) 0.1 10 ^3/uL (0-0.8); Eosinophils % (auto) 1.9 % (0.0-7.0); Hematocrit 20.7 % (41.0-53.0); Hemoglobin 7.1 g/dL (13.5-17.5); Lymphocytes # (auto) 0.8 10 ^3/uL (0.4-5.4); Lymphocytes % (auto) 24.4 % (10.0-50.0); Mean Corpuscular Hemoglobin 33.7 pg (28.0-32.0); Mean Corpuscular Hgb Conc. 34.1 g/dL (32.0-36.0); Mean Corpuscular Volume 98.7 fL (80.0-100.0); Monocytes # (auto) 0.2 10 ^3/uL (0-1.3); Monocytes % (auto) 6.4 % (0.0-12.0); Neutrophils # (auto) 2.3 10 ^3/uL (1.6-8.6); Neutrophils % (auto) 66.6 % (37.0-80.0); Nucleated Red Blood Cells % 0.1 %; Red Cell Distribution Width 18.8 % (11.8-14.3); White Blood Cell 3.5 10^3/uL (4.4-10.8)
== END | disposition home or self-care (01) ==
LOC: LAB 13:10
PROVIDERS: ATTEND Internal Medicine Cardiovascular Disease
DX: D64.9 Anemia, unspecified (principal)
CPT/HCPCS: 36415; 85025

== ENCOUNTER → 2024-01-16 | Outpatient (CLI) | payer MEDICARE ==
[2024-01-16] VITALS (12 sets, daily range): BP systolic 96–127; BP diastolic 27–48; PULSE 65–89; RESP 16; O2SAT 97
[2024-01-16] MEDS: DOBUTamine 1000MCG/ML 250 ML IV ONE ×2 (08:45→08:52)
== END | disposition home or self-care (01) ==
LOC: CHF HDHVI 08:03
PROVIDERS: ATTEND Internal Medicine Cardiovascular Disease
DX: I13.0 Hypertensive heart and chronic kidney disease with heart failure and stage 1 through stage 4 chronic kidney disease, or unspecified chronic kidney disease (principal); E11.22 Type 2 diabetes mellitus with diabetic chronic kidney disease; N18.30 Chronic kidney disease, stage 3 unspecified; I50.43 Acute on chronic combined systolic (congestive) and diastolic (congestive) heart failure; I25.5 Ischemic cardiomyopathy; D64.9 Anemia, unspecified; I25.10 Atherosclerotic heart disease of native coronary artery without angina pectoris; I25.2 Old myocardial infarction; E03.9 Hypothyroidism, unspecified; I48.0 Paroxysmal atrial fibrillation; E78.00 Pure hypercholesterolemia, unspecified; E11.42 Type 2 diabetes mellitus with diabetic polyneuropathy; E11.51 Type 2 diabetes mellitus with diabetic peripheral angiopathy without gangrene; Z87.891 Personal history of nicotine dependence; Z79.899 Other long term (current) drug therapy; Z95.810 Presence of automatic (implantable) cardiac defibrillator
CPT/HCPCS: 96365; 96366; G0463; J1250; J1642

== ENCOUNTER → 2024-01-21 | Outpatient (CLI) | payer MEDICARE ==
[2024-01-21] VITALS (12 sets, daily range): BP systolic 91–121; BP diastolic 26–79; PULSE 64–86; RESP 18; O2SAT 99
[~2024-01-21] MED LIST changes: +BUMEX2MG PO
[2024-01-21] MEDS: DOBUTamine 1000MCG/ML 250 ML IV ONE ×2 (08:25→08:42)
[2024-01-21] MEDS: SODIUM FERRIC GLUC CPLEX 62.5MG/5ML VIAL IV ONE (08:42)
[2024-01-21] MEDS: PATIENTS OWN MEDICATION (FERRLECIT 125 MG) IV ONE (09:00)
== END | disposition home or self-care (01) ==
LOC: CHF HDHVI 08:35
PROVIDERS: ATTEND Internal Medicine Cardiovascular Disease
DX: I13.0 Hypertensive heart and chronic kidney disease with heart failure and stage 1 through stage 4 chronic kidney disease, or unspecified chronic kidney disease (principal); E11.22 Type 2 diabetes mellitus with diabetic chronic kidney disease; I50.43 Acute on chronic combined systolic (congestive) and diastolic (congestive) heart failure; N18.30 Chronic kidney disease, stage 3 unspecified; D64.9 Anemia, unspecified; I25.10 Atherosclerotic heart disease of native coronary artery without angina pectoris; I25.5 Ischemic cardiomyopathy; I25.2 Old myocardial infarction; I48.0 Paroxysmal atrial fibrillation; E11.42 Type 2 diabetes mellitus with diabetic polyneuropathy; E11.51 Type 2 diabetes mellitus with diabetic peripheral angiopathy without gangrene; E78.00 Pure hypercholesterolemia, unspecified; E03.9 Hypothyroidism, unspecified; Z87.891 Personal history of nicotine dependence; Z95.810 Presence of automatic (implantable) cardiac defibrillator
CPT/HCPCS: 96365; 96366; 96368; G0463; J1250; J1642; J2916

== ENCOUNTER → 2024-01-23 | Outpatient (CLI) | payer MEDICARE ==
[~2024-01-23] MED LIST changes: -BUMEX2MG PO
[2024-01-23 13:08] LABS: Basophils # (auto) 0 10 ^3/uL (0-0.2); Basophils % (auto) 0.8 % (0.0-2.0); Eosinophils # (auto) 0.1 10 ^3/uL (0-0.8); Eosinophils % (auto) 1.8 % (0.0-7.0); Hematocrit 18.8 % (41.0-53.0); Lymphocytes % (auto) 25.7 % (10.0-50.0); Mean Corpuscular Hemoglobin 34.1 pg (28.0-32.0); Mean Corpuscular Hgb Conc. 34.5 g/dL (32.0-36.0); Mean Corpuscular Volume 99.1 fL (80.0-100.0); Monocytes # (auto) 0.3 10 ^3/uL (0-1.3); Monocytes % (auto) 7.4 % (0.0-12.0); Neutrophils # (auto) 2.6 10 ^3/uL (1.6-8.6); Neutrophils % (auto) 64.3 % (37.0-80.0); Nucleated Red Blood Cells % 0.1 %; Red Cell Distribution Width 19.1 % (11.8-14.3); White Blood Cell 4.1 10^3/uL (4.4-10.8)
[2024-01-23 13:13] LABS: Hemoglobin 6.5 g/dL (13.5-17.5)
[2024-01-23 14:22] LABS: Platelet Estimate Decreased
== END | disposition home or self-care (01) ==
LOC: LAB 12:54
PROVIDERS: ATTEND Internal Medicine Cardiovascular Disease
DX: D64.9 Anemia, unspecified (principal)
CPT/HCPCS: 36415; 85025

== ENCOUNTER → 2024-01-23 | Outpatient (CLI) | payer MEDICARE ==
[2024-01-23] VITALS (11 sets, daily range): BP systolic 87–111; BP diastolic 26–43; PULSE 65–86; RESP 16; O2SAT 99
[~2024-01-23] MED LIST changes: +BUMEX2MG PO
[2024-01-23] MEDS: DOBUTamine 1000MCG/ML 250 ML IV ONE ×2 (08:49→08:59)
== END | disposition home or self-care (01) ==
LOC: CHF HDHVI 08:34
PROVIDERS: ATTEND Internal Medicine Cardiovascular Disease
DX: I13.0 Hypertensive heart and chronic kidney disease with heart failure and stage 1 through stage 4 chronic kidney disease, or unspecified chronic kidney disease (principal); E11.22 Type 2 diabetes mellitus with diabetic chronic kidney disease; N18.30 Chronic kidney disease, stage 3 unspecified; I50.43 Acute on chronic combined systolic (congestive) and diastolic (congestive) heart failure; I25.5 Ischemic cardiomyopathy; I25.10 Atherosclerotic heart disease of native coronary artery without angina pectoris; E03.9 Hypothyroidism, unspecified; I25.2 Old myocardial infarction; I48.0 Paroxysmal atrial fibrillation; E78.00 Pure hypercholesterolemia, unspecified; E11.42 Type 2 diabetes mellitus with diabetic polyneuropathy; E11.51 Type 2 diabetes mellitus with diabetic peripheral angiopathy without gangrene; Z79.899 Other long term (current) drug therapy
CPT/HCPCS: 96365; 96366; G0463; J1250; J1642

== ENCOUNTER 2024-01-28 07:48 | Day surgery (SDC) | payer MEDICARE ==
[2024-01-28] VITALS (12 sets, daily range): BP systolic 87–106; BP diastolic 30–50; PULSE 65–67; RESP 12–18; TEMP 98–98.5
[~2024-01-28] VITALS: Ht 165.1 cm; Wt 62.6 kg
[~2024-01-28 07:48] MED LIST changes: -ASPI81CH43 PO; -CLOP75TA28 PO; -FURO1TAB31 PO; -GABA-1250 PO
== END 2024-01-28 15:10 | disposition home or self-care (01) ==
LOC: CATH 07:48
PROVIDERS: ATTEND Internal Medicine Cardiovascular Disease
DX: K92.2 Gastrointestinal hemorrhage, unspecified (principal); I13.0 Hypertensive heart and chronic kidney disease with heart failure and stage 1 through stage 4 chronic kidney disease, or unspecified chronic kidney disease; E11.22 Type 2 diabetes mellitus with diabetic chronic kidney disease; N18.30 Chronic kidney disease, stage 3 unspecified; I50.43 Acute on chronic combined systolic (congestive) and diastolic (congestive) heart failure; I25.10 Atherosclerotic heart disease of native coronary artery without angina pectoris; E03.9 Hypothyroidism, unspecified; I25.2 Old myocardial infarction; I48.0 Paroxysmal atrial fibrillation; E78.00 Pure hypercholesterolemia, unspecified; E11.42 Type 2 diabetes mellitus with diabetic polyneuropathy; E11.51 Type 2 diabetes mellitus with diabetic peripheral angiopathy without gangrene; Z79.899 Other long term (current) drug therapy; Z87.891 Personal history of nicotine dependence; Z95.810 Presence of automatic (implantable) cardiac defibrillator
CPT/HCPCS: 36430; 86850; 86900; 86901; 86920; J7030; P9016

== ENCOUNTER → 2024-01-30 | Outpatient (CLI) | payer MEDICARE ==
[2024-01-30] VITALS (12 sets, daily range): BP systolic 104–130; BP diastolic 38–54; PULSE 65–82; RESP 16; O2SAT 97
[2024-01-30] MEDS: DOBUTamine 1000MCG/ML 250 ML IV ONE ×2 (08:56)
[2024-01-30] MEDS: CYANOCOBALAMIN (B-12) 1000 MCG/1 ML VIAL ONE (11:40)
[2024-01-30] MEDS: CYANOCOBALAMIN (B-12) 1000 MCG/1 ML VIAL IM ONE (12:59)
== END | disposition home or self-care (01) ==
LOC: CHF HDHVI 08:33
PROVIDERS: ATTEND Internal Medicine Cardiovascular Disease
DX: I13.0 Hypertensive heart and chronic kidney disease with heart failure and stage 1 through stage 4 chronic kidney disease, or unspecified chronic kidney disease (principal); E11.22 Type 2 diabetes mellitus with diabetic chronic kidney disease; I50.43 Acute on chronic combined systolic (congestive) and diastolic (congestive) heart failure; N18.30 Chronic kidney disease, stage 3 unspecified; I25.10 Atherosclerotic heart disease of native coronary artery without angina pectoris; I25.5 Ischemic cardiomyopathy; I25.2 Old myocardial infarction; I48.0 Paroxysmal atrial fibrillation; E11.42 Type 2 diabetes mellitus with diabetic polyneuropathy; E11.51 Type 2 diabetes mellitus with diabetic peripheral angiopathy without gangrene; E78.5 Hyperlipidemia, unspecified; Z79.899 Other long term (current) drug therapy; Z87.891 Personal history of nicotine dependence; Z95.810 Presence of automatic (implantable) cardiac defibrillator
CPT/HCPCS: 96365; 96366; 96372; G0463; J1250; J1642; J3420

== ENCOUNTER → 2024-02-04 | Outpatient (CLI) | payer MEDICARE ==
[2024-02-04 13:19] LABS: Basophils # (auto) 0 10 ^3/uL (0-0.2); Basophils % (auto) 1.2 % (0.0-2.0); Eosinophils # (auto) 0.1 10 ^3/uL (0-0.8); Eosinophils % (auto) 2.5 % (0.0-7.0); Hematocrit 26.5 % (41.0-53.0); Lymphocytes # (auto) 0.8 10 ^3/uL (0.4-5.4); Lymphocytes % (auto) 24.2 % (10.0-50.0); Mean Corpuscular Hemoglobin 32.9 pg (28.0-32.0); Mean Corpuscular Volume 96.7 fL (80.0-100.0); Monocytes # (auto) 0.2 10 ^3/uL (0-1.3); Monocytes % (auto) 7.1 % (0.0-12.0); Neutrophils # (auto) 2.1 10 ^3/uL (1.6-8.6); Red Blood Cells 2.75 10^6/uL (4.5-5.90); Red Cell Distribution Width 17.6 % (11.8-14.3); White Blood Cell 3.3 10^3/uL (4.4-10.8)
== END | disposition home or self-care (01) ==
LOC: LAB 12:58
PROVIDERS: ATTEND Internal Medicine Cardiovascular Disease
DX: D64.9 Anemia, unspecified (principal)
CPT/HCPCS: 36415; 85025

== ENCOUNTER → 2024-02-11 | Outpatient (CLI) | payer MEDICARE ==
[2024-02-11] MEDS: DOBUTamine 1000MCG/ML 0 ML IV ONE (08:24)
[2024-02-11 08:25] VITALS: BP 90/25; PULSE 65; RESP 16; O2SAT 96
[2024-02-11] MEDS: MVI in SODIUM CHLORIDE 0.9% 500 ML IVB ONE (08:25)
[2024-02-11] MEDS: MULTIPLE VIT 10 ML IV ONE (08:37)
[2024-02-11 09:40] VITALS: BP 103/42; PULSE 64
[2024-02-11 10:00] VITALS: BP 128/30; PULSE 70
[2024-02-11 10:43] VITALS: BP 111/44; PULSE 68
[2024-02-11 10:55] VITALS: BP 112/47; PULSE 65; RESP 16; O2SAT 97
== END | disposition home or self-care (01) ==
LOC: CHF HDHVI 08:08
PROVIDERS: ATTEND Internal Medicine Cardiovascular Disease
DX: E86.9 Volume depletion, unspecified (principal); D64.9 Anemia, unspecified; I13.0 Hypertensive heart and chronic kidney disease with heart failure and stage 1 through stage 4 chronic kidney disease, or unspecified chronic kidney disease; E11.22 Type 2 diabetes mellitus with diabetic chronic kidney disease; N18.30 Chronic kidney disease, stage 3 unspecified; I50.43 Acute on chronic combined systolic (congestive) and diastolic (congestive) heart failure; I25.5 Ischemic cardiomyopathy; I25.10 Atherosclerotic heart disease of native coronary artery without angina pectoris; E03.9 Hypothyroidism, unspecified; I25.2 Old myocardial infarction; I48.0 Paroxysmal atrial fibrillation; E78.00 Pure hypercholesterolemia, unspecified; E11.42 Type 2 diabetes mellitus with diabetic polyneuropathy; E11.51 Type 2 diabetes mellitus with diabetic peripheral angiopathy without gangrene; Z79.899 Other long term (current) drug therapy; Z87.891 Personal history of nicotine dependence; Z95.810 Presence of automatic (implantable) cardiac defibrillator
CPT/HCPCS: 96365; 96366; G0463; J1642; J3411; J3475; J7040; 96360; 96361

== ENCOUNTER → 2024-02-11 | Outpatient (CLI) | payer MEDICARE ==
[2024-02-11 11:43] LABS: Basophils # (auto) 0 10 ^3/uL (0-0.2); Eosinophils # (auto) 0.1 10 ^3/uL (0-0.8); Eosinophils % (auto) 2.7 % (0.0-7.0); Hematocrit 23.4 % (41.0-53.0); Hemoglobin 8.1 g/dL (13.5-17.5); Lymphocytes # (auto) 1.2 10 ^3/uL (0.4-5.4); Lymphocytes % (auto) 34.5 % (10.0-50.0); Mean Corpuscular Hemoglobin 33.9 pg (28.0-32.0); Mean Corpuscular Hgb Conc. 34.5 g/dL (32.0-36.0); Mean Corpuscular Volume 98.1 fL (80.0-100.0); Monocytes # (auto) 0.2 10 ^3/uL (0-1.3); Neutrophils # (auto) 1.9 10 ^3/uL (1.6-8.6); Neutrophils % (auto) 54.8 % (37.0-80.0); Nucleated Red Blood Cells % 0.1 %; Red Blood Cells 2.38 10^6/uL (4.5-5.90); White Blood Cell 3.5 10^3/uL (4.4-10.8)
== END | disposition home or self-care (01) ==
LOC: LAB 11:14
PROVIDERS: ATTEND Internal Medicine Cardiovascular Disease
DX: D64.9 Anemia, unspecified (principal)
CPT/HCPCS: 36415; 85025

== ENCOUNTER → 2024-02-13 | Outpatient (CLI) | payer MEDICARE ==
[2024-02-13] VITALS (11 sets, daily range): BP systolic 80–122; BP diastolic 33–44; PULSE 65–81; RESP 16; O2SAT 95
[2024-02-13] MEDS: DOBUTamine 1000MCG/ML 250 ML IV ONE ×2 (08:52→09:01)
[2024-02-13] MEDS: SODIUM FERRIC GLUC CPLEX 62.5MG/5ML VIAL IV ONE (09:28)
[2024-02-13] MEDS: SODIUM FERR GLUC 62.5MG/5ML 110 ML IV ONE (09:34)
== END | disposition home or self-care (01) ==
LOC: CHF HDHVI 08:37
PROVIDERS: ATTEND Internal Medicine Cardiovascular Disease
DX: I13.0 Hypertensive heart and chronic kidney disease with heart failure and stage 1 through stage 4 chronic kidney disease, or unspecified chronic kidney disease (principal); E11.22 Type 2 diabetes mellitus with diabetic chronic kidney disease; N18.30 Chronic kidney disease, stage 3 unspecified; I50.43 Acute on chronic combined systolic (congestive) and diastolic (congestive) heart failure; D64.9 Anemia, unspecified; I25.5 Ischemic cardiomyopathy; I25.10 Atherosclerotic heart disease of native coronary artery without angina pectoris; E03.9 Hypothyroidism, unspecified; I25.2 Old myocardial infarction; I48.0 Paroxysmal atrial fibrillation; E78.00 Pure hypercholesterolemia, unspecified; E11.42 Type 2 diabetes mellitus with diabetic polyneuropathy; E11.51 Type 2 diabetes mellitus with diabetic peripheral angiopathy without gangrene; Z79.899 Other long term (current) drug therapy; Z87.891 Personal history of nicotine dependence; Z95.810 Presence of automatic (implantable) cardiac defibrillator
CPT/HCPCS: 96365; 96366; 96368; G0463; J1250; J1642; J2916; 96367

== ENCOUNTER → 2024-02-18 | Outpatient (CLI) | payer MEDICARE ==
[2024-02-18] VITALS (12 sets, daily range): BP systolic 97–119; BP diastolic 32–39; PULSE 65–81; RESP 16; O2SAT 97
[2024-02-18] MEDS: DOBUTamine 1000MCG/ML 250 ML IV ONE ×2 (08:28→08:31)
[2024-02-18] MEDS: SODIUM FERRIC GLUC CPLEX 62.5MG/5ML VIAL IV ONE (08:28)
[2024-02-18] MEDS: PATIENTS OWN MEDICATION (FERRLECIT 125 MG) IV ONE (08:32)
== END | disposition home or self-care (01) ==
LOC: CHF HDHVI 08:04
PROVIDERS: ATTEND Internal Medicine Cardiovascular Disease
DX: I13.0 Hypertensive heart and chronic kidney disease with heart failure and stage 1 through stage 4 chronic kidney disease, or unspecified chronic kidney disease (principal); E11.22 Type 2 diabetes mellitus with diabetic chronic kidney disease; N18.30 Chronic kidney disease, stage 3 unspecified; I50.43 Acute on chronic combined systolic (congestive) and diastolic (congestive) heart failure; D64.9 Anemia, unspecified; I25.5 Ischemic cardiomyopathy; I25.10 Atherosclerotic heart disease of native coronary artery without angina pectoris; E03.9 Hypothyroidism, unspecified; I25.2 Old myocardial infarction; I48.0 Paroxysmal atrial fibrillation; E78.00 Pure hypercholesterolemia, unspecified; E11.42 Type 2 diabetes mellitus with diabetic polyneuropathy; E11.51 Type 2 diabetes mellitus with diabetic peripheral angiopathy without gangrene; Z79.899 Other long term (current) drug therapy; Z87.891 Personal history of nicotine dependence; Z95.810 Presence of automatic (implantable) cardiac defibrillator
CPT/HCPCS: 96365; 96366; 96368; G0463; J1250; J1642; J2916; 96367

== ENCOUNTER → 2024-02-18 | Outpatient (CLI) | payer MEDICARE ==
[2024-02-18 13:09] LABS: Basophils # (auto) 0 10 ^3/uL (0-0.2); Eosinophils # (auto) 0.1 10 ^3/uL (0-0.8); Hemoglobin 7.7 g/dL (13.5-17.5); Lymphocytes # (auto) 0.8 10 ^3/uL (0.4-5.4); Monocytes # (auto) 0.2 10 ^3/uL (0-1.3)
[2024-02-18 13:11] LABS: Basophils % (auto) 1.3 % (0.0-2.0); Eosinophils % (auto) 2.1 % (0.0-7.0); Hematocrit 22.6 % (41.0-53.0); Lymphocytes % (auto) 25.3 % (10.0-50.0); Mean Corpuscular Hemoglobin 33.8 pg (28.0-32.0); Mean Corpuscular Hgb Conc. 34.1 g/dL (32.0-36.0); Mean Corpuscular Volume 99.1 fL (80.0-100.0); Monocytes % (auto) 5.9 % (0.0-12.0); Neutrophils % (auto) 65.4 % (37.0-80.0); Platelet Count (auto) 152 10^3/uL (140-450); Red Blood Cells 2.28 10^6/uL (4.5-5.90); Red Cell Distribution Width 17.3 % (11.8-14.3)
== END | disposition home or self-care (01) ==
LOC: LAB 12:54
PROVIDERS: ATTEND Internal Medicine Cardiovascular Disease
DX: D64.9 Anemia, unspecified (principal)
CPT/HCPCS: 36415; 85025

== ENCOUNTER → 2024-02-27 | Outpatient (CLI) | payer MEDICARE ==
[2024-02-27 13:54] LABS: Basophils # (auto) 0 10 ^3/uL (0-0.2); Basophils % (auto) 1.1 % (0.0-2.0); Eosinophils # (auto) 0.1 10 ^3/uL (0-0.8); Eosinophils % (auto) 2.5 % (0.0-7.0); Hemoglobin 9.5 g/dL (13.5-17.5); Lymphocytes # (auto) 0.7 10 ^3/uL (0.4-5.4); Lymphocytes % (auto) 25.5 % (10.0-50.0); Mean Corpuscular Hemoglobin 33.7 pg (28.0-32.0); Mean Corpuscular Hgb Conc. 35.3 g/dL (32.0-36.0); Mean Corpuscular Volume 95.5 fL (80.0-100.0); Monocytes # (auto) 0.2 10 ^3/uL (0-1.3); Monocytes % (auto) 8.5 % (0.0-12.0); Neutrophils # (auto) 1.8 10 ^3/uL (1.6-8.6); Neutrophils % (auto) 62.4 % (37.0-80.0); Nucleated Red Blood Cells % 0.1 %; Platelet Count (auto) 118 10^3/uL (140-450); Red Blood Cells 2.83 10^6/uL (4.5-5.90); Red Cell Distribution Width 16.3 % (11.8-14.3); White Blood Cell 2.9 10^3/uL (4.4-10.8)
== END | disposition home or self-care (01) ==
LOC: LAB 13:38
PROVIDERS: ATTEND Internal Medicine Cardiovascular Disease
DX: D64.9 Anemia, unspecified (principal)
CPT/HCPCS: 36415; 85025

== ENCOUNTER 2024-03-10 07:21 | Day surgery (SDC) | payer MEDICARE ==
[2024-03-10] VITALS (19 sets, daily range): BP systolic 92–115; BP diastolic 39–71; PULSE 61–81; RESP 11–20; TEMP 97.4–98.4
[~2024-03-10] VITALS: Ht 162.6 cm; Wt 61.7 kg
== END 2024-03-10 14:45 | disposition home or self-care (01) ==
LOC: CATH 07:21
PROVIDERS: ATTEND Internal Medicine Cardiovascular Disease
DX: D64.9 Anemia, unspecified (principal); E03.9 Hypothyroidism, unspecified; E78.00 Pure hypercholesterolemia, unspecified; I13.0 Hypertensive heart and chronic kidney disease with heart failure and stage 1 through stage 4 chronic kidney disease, or unspecified chronic kidney disease; E11.22 Type 2 diabetes mellitus with diabetic chronic kidney disease; I50.9 Heart failure, unspecified; N18.30 Chronic kidney disease, stage 3 unspecified; I25.2 Old myocardial infarction; I48.91 Unspecified atrial fibrillation; Z95.810 Presence of automatic (implantable) cardiac defibrillator
CPT/HCPCS: 36430; 86850; 86900; 86901; 86920; P9016

== ENCOUNTER → 2024-03-17 | Outpatient (CLI) | payer MEDICARE ==
[2024-03-17] VITALS (12 sets, daily range): BP systolic 104–136; BP diastolic 38–83; PULSE 67–91; RESP 16; O2SAT 99
[2024-03-17] MEDS: DOBUTamine 1000MCG/ML 250 ML IV ONE ×2 (08:20→08:32)
[2024-03-17] MEDS: CATHFLO ACTIVASE (ALTEPLASE) 2 MG VIAL ONE (12:25)
[2024-03-17] MEDS: STERILE WATER 10 ML ONE (12:28)
[2024-03-17] MEDS: CATHFLO ACTIVASE (ALTEPLASE) 2 MG VIAL IV ONE (12:30)
== END | disposition home or self-care (01) ==
LOC: CHF HDHVI 08:10
PROVIDERS: ATTEND Internal Medicine Cardiovascular Disease
DX: I25.5 Ischemic cardiomyopathy (principal); I13.0 Hypertensive heart and chronic kidney disease with heart failure and stage 1 through stage 4 chronic kidney disease, or unspecified chronic kidney disease; E11.22 Type 2 diabetes mellitus with diabetic chronic kidney disease; I50.43 Acute on chronic combined systolic (congestive) and diastolic (congestive) heart failure; N18.30 Chronic kidney disease, stage 3 unspecified; I25.10 Atherosclerotic heart disease of native coronary artery without angina pectoris; I25.2 Old myocardial infarction; I48.0 Paroxysmal atrial fibrillation; E78.5 Hyperlipidemia, unspecified; E03.9 Hypothyroidism, unspecified; E11.42 Type 2 diabetes mellitus with diabetic polyneuropathy; E11.51 Type 2 diabetes mellitus with diabetic peripheral angiopathy without gangrene; Z87.891 Personal history of nicotine dependence; Z79.899 Other long term (current) drug therapy; Z95.810 Presence of automatic (implantable) cardiac defibrillator
CPT/HCPCS: 36593; 96365; 96366; G0463; J1250; J1642; J2997; 96375

== ENCOUNTER → 2024-03-17 | Outpatient (CLI) | payer MEDICARE ==
[2024-03-17 14:06] LABS: Basophils # (auto) 0 10 ^3/uL (0-0.2); Basophils % (auto) 1.2 % (0.0-2.0); Eosinophils # (auto) 0.1 10 ^3/uL (0-0.8); Eosinophils % (auto) 2.3 % (0.0-7.0); Hemoglobin 11.5 g/dL (13.5-17.5); Lymphocytes % (auto) 28.5 % (10.0-50.0); Mean Corpuscular Hemoglobin 31.9 pg (28.0-32.0); Mean Corpuscular Hgb Conc. 34.8 g/dL (32.0-36.0); Mean Corpuscular Volume 91.7 fL (80.0-100.0); Monocytes # (auto) 0.3 10 ^3/uL (0-1.3); Monocytes % (auto) 8.5 % (0.0-12.0); Neutrophils # (auto) 2.2 10 ^3/uL (1.6-8.6); Neutrophils % (auto) 59.5 % (37.0-80.0); Nucleated Red Blood Cells % 0.1 %; Platelet Count (auto) 137 10^3/uL (140-450); Red Cell Distribution Width 18.7 % (11.8-14.3); White Blood Cell 3.7 10^3/uL (4.4-10.8)
== END | disposition home or self-care (01) ==
LOC: LAB 13:27
PROVIDERS: ATTEND Internal Medicine Cardiovascular Disease
DX: D64.9 Anemia, unspecified (principal)
CPT/HCPCS: 36415; 85025

== ENCOUNTER → 2024-03-26 | Outpatient (CLI) | payer MEDICARE ==
[2024-03-26] VITALS (10 sets, daily range): BP systolic 100–120; BP diastolic 31–42; PULSE 64–76; RESP 16; O2SAT 97
[~2024-03-26] MED LIST changes: +DOBUTamine 1000MCG/ML 250 ML IV ONE
[2024-03-26] MEDS: DOBUTamine 1000MCG/ML 250 ML IV ONE (09:07)
== END | disposition home or self-care (01) ==
LOC: CHF HDHVI 08:50
PROVIDERS: ATTEND Internal Medicine Cardiovascular Disease
DX: I13.0 Hypertensive heart and chronic kidney disease with heart failure and stage 1 through stage 4 chronic kidney disease, or unspecified chronic kidney disease (principal); E11.22 Type 2 diabetes mellitus with diabetic chronic kidney disease; I50.43 Acute on chronic combined systolic (congestive) and diastolic (congestive) heart failure; N18.30 Chronic kidney disease, stage 3 unspecified; I25.5 Ischemic cardiomyopathy; I25.10 Atherosclerotic heart disease of native coronary artery without angina pectoris; I25.2 Old myocardial infarction; I48.0 Paroxysmal atrial fibrillation; E11.51 Type 2 diabetes mellitus with diabetic peripheral angiopathy without gangrene; E11.42 Type 2 diabetes mellitus with diabetic polyneuropathy; E78.5 Hyperlipidemia, unspecified; E03.9 Hypothyroidism, unspecified; Z79.899 Other long term (current) drug therapy; Z87.891 Personal history of nicotine dependence; Z95.810 Presence of automatic (implantable) cardiac defibrillator
CPT/HCPCS: 96365; 96366; G0463; J1250; J1642

== ENCOUNTER → 2024-03-26 | Outpatient (CLI) | payer MEDICARE ==
[~2024-03-26] MED LIST changes: -DOBUTamine 1000MCG/ML 250 ML IV ONE
[2024-03-26 13:28] LABS: Basophils # (auto) 0 10 ^3/uL (0-0.2); Basophils % (auto) 0.7 % (0.0-2.0); Eosinophils # (auto) 0.1 10 ^3/uL (0-0.8); Eosinophils % (auto) 2.8 % (0.0-7.0); Hematocrit 29.7 % (41.0-53.0); Hemoglobin 10.3 g/dL (13.5-17.5); Lymphocytes % (auto) 29.9 % (10.0-50.0); Mean Corpuscular Hemoglobin 32.2 pg (28.0-32.0); Mean Corpuscular Hgb Conc. 34.7 g/dL (32.0-36.0); Mean Corpuscular Volume 92.6 fL (80.0-100.0); Monocytes # (auto) 0.3 10 ^3/uL (0-1.3); Monocytes % (auto) 9.4 % (0.0-12.0); Neutrophils # (auto) 1.8 10 ^3/uL (1.6-8.6); Neutrophils % (auto) 57.2 % (37.0-80.0); Nucleated Red Blood Cells % 0.1 %; Platelet Count (auto) 125 10^3/uL (140-450); Red Cell Distribution Width 18.5 % (11.8-14.3); White Blood Cell 3.2 10^3/uL (4.4-10.8)
[2024-03-26 14:10] LABS: Alanine Aminotransferase 59 U/L (7-40); Albumin 4.1 g/dL (3.2-4.8); Alkaline Phosphatase 56 U/L (46-116); Anion Gap 7 (5-15); Aspartate Aminotransferase 68 U/L (13-40); BUN/Creatinine Ratio 18.2 (10.0-20.0); Bilirubin, Total 0.5 mg/dL (0.2-1.0); Blood Urea Nitrogen 44 mg/dL (9-23); Calcium 9.5 mg/dL (8.7-10.4); Carbon Dioxide 28 mmol/L (20-31); Chloride 104 mmol/L (98-107); Glucose 207 mg/dL (74-106); Potassium 3.9 mmol/L (3.5-5.1); Sodium 139 mmol/L (136-145); Total Protein 7.6 g/dL (5.7-8.2)
== END | disposition home or self-care (01) ==
LOC: LAB 13:01
PROVIDERS: ATTEND Internal Medicine Cardiovascular Disease
DX: I11.0 Hypertensive heart disease with heart failure (principal); I50.43 Acute on chronic combined systolic (congestive) and diastolic (congestive) heart failure; D64.9 Anemia, unspecified
CPT/HCPCS: 36415; 80053; 83735; 83880; 85025

== ENCOUNTER → 2024-04-02 | Outpatient (CLI) | payer MEDICARE ==
[2024-04-02] VITALS (10 sets, daily range): BP systolic 82–122; BP diastolic 31–63; PULSE 65–75; RESP 16; O2SAT 95
[2024-04-02] MEDS: DOBUTamine 1000MCG/ML 250 ML IV ONE ×2 (08:44→08:51)
[2024-04-02] MEDS: SODIUM CHLORIDE 0.9% 250 ML IV ONE (08:51)
== END | disposition home or self-care (01) ==
LOC: CHF HDHVI 08:17
PROVIDERS: ATTEND Internal Medicine Cardiovascular Disease
DX: I13.0 Hypertensive heart and chronic kidney disease with heart failure and stage 1 through stage 4 chronic kidney disease, or unspecified chronic kidney disease (principal); E11.22 Type 2 diabetes mellitus with diabetic chronic kidney disease; N18.30 Chronic kidney disease, stage 3 unspecified; I50.43 Acute on chronic combined systolic (congestive) and diastolic (congestive) heart failure; E86.0 Dehydration; I25.5 Ischemic cardiomyopathy; I25.10 Atherosclerotic heart disease of native coronary artery without angina pectoris; E03.9 Hypothyroidism, unspecified; I25.2 Old myocardial infarction; I48.0 Paroxysmal atrial fibrillation; E78.00 Pure hypercholesterolemia, unspecified; E11.42 Type 2 diabetes mellitus with diabetic polyneuropathy; E11.51 Type 2 diabetes mellitus with diabetic peripheral angiopathy without gangrene; I48.91 Unspecified atrial fibrillation; Z79.899 Other long term (current) drug therapy; Z87.891 Personal history of nicotine dependence; Z95.810 Presence of automatic (implantable) cardiac defibrillator
CPT/HCPCS: 96365; 96366; G0463; J1250; J1642; J7050; 96361

== ENCOUNTER → 2024-04-07 | Outpatient (CLI) | payer MEDICARE ==
[2024-04-07] VITALS (12 sets, daily range): BP systolic 90–130; BP diastolic 37–60; PULSE 65–69; RESP 16; O2SAT 97
[2024-04-07] MEDS: DOBUTamine 1000MCG/ML 250 ML IV ONE ×2 (08:40→09:17)
[2024-04-07] MEDS: CYANOCOBALAMIN (B-12) 1000 MCG/1 ML VIAL ONE (09:23)
[2024-04-07] MEDS: CYANOCOBALAMIN (B-12) 1000 MCG/1 ML VIAL IM ONE (12:58)
== END | disposition home or self-care (01) ==
LOC: CHF HDHVI 08:41
PROVIDERS: ATTEND Internal Medicine Cardiovascular Disease
DX: I13.0 Hypertensive heart and chronic kidney disease with heart failure and stage 1 through stage 4 chronic kidney disease, or unspecified chronic kidney disease (principal); E11.22 Type 2 diabetes mellitus with diabetic chronic kidney disease; N18.30 Chronic kidney disease, stage 3 unspecified; I50.43 Acute on chronic combined systolic (congestive) and diastolic (congestive) heart failure; I25.5 Ischemic cardiomyopathy; D64.9 Anemia, unspecified; I25.10 Atherosclerotic heart disease of native coronary artery without angina pectoris; E03.9 Hypothyroidism, unspecified; I25.2 Old myocardial infarction; I48.0 Paroxysmal atrial fibrillation; E11.42 Type 2 diabetes mellitus with diabetic polyneuropathy; E11.51 Type 2 diabetes mellitus with diabetic peripheral angiopathy without gangrene; Z79.899 Other long term (current) drug therapy; Z87.891 Personal history of nicotine dependence; Z95.810 Presence of automatic (implantable) cardiac defibrillator
CPT/HCPCS: 96365; 96366; 96372; G0463; J1250; J1642; J3420

== ENCOUNTER → 2024-04-09 | Outpatient (CLI) | payer MEDICARE ==
[2024-04-09] VITALS (10 sets, daily range): BP systolic 100–120; BP diastolic 38–45; PULSE 65–75; RESP 16; O2SAT 98
[2024-04-09] MEDS: DOBUTamine 1000MCG/ML 250 ML IV ONE ×2 (08:46→08:50)
== END | disposition home or self-care (01) ==
LOC: CHF HDHVI 08:14
PROVIDERS: ATTEND Internal Medicine Cardiovascular Disease
DX: I13.0 Hypertensive heart and chronic kidney disease with heart failure and stage 1 through stage 4 chronic kidney disease, or unspecified chronic kidney disease (principal); E11.22 Type 2 diabetes mellitus with diabetic chronic kidney disease; I50.43 Acute on chronic combined systolic (congestive) and diastolic (congestive) heart failure; N18.30 Chronic kidney disease, stage 3 unspecified; I25.5 Ischemic cardiomyopathy; I25.10 Atherosclerotic heart disease of native coronary artery without angina pectoris; I25.2 Old myocardial infarction; I48.0 Paroxysmal atrial fibrillation; E11.42 Type 2 diabetes mellitus with diabetic polyneuropathy; E11.51 Type 2 diabetes mellitus with diabetic peripheral angiopathy without gangrene; E03.9 Hypothyroidism, unspecified; E78.5 Hyperlipidemia, unspecified; Z79.899 Other long term (current) drug therapy; Z87.891 Personal history of nicotine dependence; Z95.810 Presence of automatic (implantable) cardiac defibrillator
CPT/HCPCS: 96365; 96366; G0463; J1250; J1642

== ENCOUNTER → 2024-04-14 | Outpatient (CLI) | payer MEDICARE ==
[2024-04-14] VITALS (12 sets, daily range): BP systolic 96–123; BP diastolic 37–60; PULSE 65–77; RESP 16; O2SAT 99
[2024-04-14] MEDS: DOBUTamine 1000MCG/ML 250 ML IV ONE ×2 (08:41→09:31)
== END | disposition home or self-care (01) ==
LOC: CHF HDHVI 08:15
PROVIDERS: ATTEND Internal Medicine Cardiovascular Disease
DX: I25.5 Ischemic cardiomyopathy (principal); I13.0 Hypertensive heart and chronic kidney disease with heart failure and stage 1 through stage 4 chronic kidney disease, or unspecified chronic kidney disease; E11.22 Type 2 diabetes mellitus with diabetic chronic kidney disease; N18.30 Chronic kidney disease, stage 3 unspecified; I50.43 Acute on chronic combined systolic (congestive) and diastolic (congestive) heart failure; E03.9 Hypothyroidism, unspecified; I48.91 Unspecified atrial fibrillation; E78.00 Pure hypercholesterolemia, unspecified; Z95.810 Presence of automatic (implantable) cardiac defibrillator
CPT/HCPCS: 96365; 96366; G0463; J1250; J1642

== ENCOUNTER → 2024-04-16 | Outpatient (CLI) | payer MEDICARE ==
[2024-04-16] VITALS (10 sets, daily range): BP systolic 102–136; BP diastolic 34–50; PULSE 65–87; RESP 16; O2SAT 100
[2024-04-16] MEDS: DOBUTamine 1000MCG/ML 250 ML IV ONE ×2 (08:40→08:44)
== END | disposition home or self-care (01) ==
LOC: CHF HDHVI 08:29
PROVIDERS: ATTEND Internal Medicine Cardiovascular Disease
DX: I25.5 Ischemic cardiomyopathy (principal); I13.0 Hypertensive heart and chronic kidney disease with heart failure and stage 1 through stage 4 chronic kidney disease, or unspecified chronic kidney disease; E11.22 Type 2 diabetes mellitus with diabetic chronic kidney disease; E11.42 Type 2 diabetes mellitus with diabetic polyneuropathy; E11.51 Type 2 diabetes mellitus with diabetic peripheral angiopathy without gangrene; N18.30 Chronic kidney disease, stage 3 unspecified; I50.43 Acute on chronic combined systolic (congestive) and diastolic (congestive) heart failure; Z87.891 Personal history of nicotine dependence; E78.00 Pure hypercholesterolemia, unspecified; E03.9 Hypothyroidism, unspecified; Z95.810 Presence of automatic (implantable) cardiac defibrillator
CPT/HCPCS: 96365; 96366; G0463; J1250; J1642

== ENCOUNTER → 2024-04-21 | Outpatient (CLI) | payer MEDICARE ==
[2024-04-21 13:30] LABS: Basophils # (auto) 0 10 ^3/uL (0-0.2); Basophils % (auto) 0.6 % (0.0-2.0); Eosinophils # (auto) 0.1 10 ^3/uL (0-0.8); Eosinophils % (auto) 2.3 % (0.0-7.0); Hematocrit 28.6 % (41.0-53.0); Hemoglobin 9.8 g/dL (13.5-17.5); Lymphocytes # (auto) 0.7 10 ^3/uL (0.4-5.4); Mean Corpuscular Hemoglobin 31.7 pg (28.0-32.0); Mean Corpuscular Hgb Conc. 34.4 g/dL (32.0-36.0); Mean Corpuscular Volume 92.1 fL (80.0-100.0); Monocytes # (auto) 0.3 10 ^3/uL (0-1.3); Monocytes % (auto) 7.5 % (0.0-12.0); Neutrophils # (auto) 2.6 10 ^3/uL (1.6-8.6); Neutrophils % (auto) 69.6 % (37.0-80.0); Nucleated Red Blood Cells % 0.1 %; Platelet Count (auto) 126 10^3/uL (140-450); Red Cell Distribution Width 18.9 % (11.8-14.3); White Blood Cell 3.7 10^3/uL (4.4-10.8)
[2024-04-21 14:14] LABS: Alanine Aminotransferase 44 U/L (7-40); Alkaline Phosphatase 56 U/L (46-116); Anion Gap 6 (5-15); Aspartate Aminotransferase 44 U/L (13-40); BUN/Creatinine Ratio 20.8 (10.0-20.0); Blood Urea Nitrogen 33 mg/dL (9-23); Calcium 9.6 mg/dL (8.7-10.4); Carbon Dioxide 29 mmol/L (20-31); Chloride 102 mmol/L (98-107); Glucose 282 mg/dL (74-106); Magnesium 1.8 mg/dL (1.6-2.6); Potassium 4.1 mmol/L (3.5-5.1); Sodium 137 mmol/L (136-145)
[2024-04-21 14:15] LABS: Bilirubin, Total 0.4 mg/dL (0.2-1.0); Total Protein 7.5 g/dL (5.7-8.2)
== END | disposition home or self-care (01) ==
LOC: LAB 12:57
PROVIDERS: ATTEND Internal Medicine Cardiovascular Disease
DX: I11.0 Hypertensive heart disease with heart failure (principal); I50.43 Acute on chronic combined systolic (congestive) and diastolic (congestive) heart failure; D64.9 Anemia, unspecified
CPT/HCPCS: 36415; 80053; 83735; 83880; 85025

== ENCOUNTER → 2024-04-23 | Outpatient (CLI) | payer MEDICARE ==
[2024-04-23] VITALS (10 sets, daily range): BP systolic 120–142; BP diastolic 38–58; PULSE 66–73; RESP 16; O2SAT 98
[2024-04-23] MEDS: DOBUTamine 1000MCG/ML 250 ML IV ONE ×2 (08:47→08:50)
== END | disposition home or self-care (01) ==
LOC: CHF HDHVI 08:32
PROVIDERS: ATTEND Internal Medicine Cardiovascular Disease
DX: I13.0 Hypertensive heart and chronic kidney disease with heart failure and stage 1 through stage 4 chronic kidney disease, or unspecified chronic kidney disease (principal); E11.22 Type 2 diabetes mellitus with diabetic chronic kidney disease; I50.43 Acute on chronic combined systolic (congestive) and diastolic (congestive) heart failure; N18.30 Chronic kidney disease, stage 3 unspecified; I25.5 Ischemic cardiomyopathy; I25.10 Atherosclerotic heart disease of native coronary artery without angina pectoris; I25.2 Old myocardial infarction; I48.0 Paroxysmal atrial fibrillation; E11.51 Type 2 diabetes mellitus with diabetic peripheral angiopathy without gangrene; E11.42 Type 2 diabetes mellitus with diabetic polyneuropathy; E78.00 Pure hypercholesterolemia, unspecified; Z87.891 Personal history of nicotine dependence; Z79.899 Other long term (current) drug therapy; Z95.810 Presence of automatic (implantable) cardiac defibrillator
CPT/HCPCS: 96365; 96366; G0463; J1250; J1642

== ENCOUNTER → 2024-04-28 | Outpatient (CLI) | payer MEDICARE ==
[2024-04-28] VITALS (12 sets, daily range): BP systolic 91–140; BP diastolic 30–49; PULSE 65–91; RESP 16; O2SAT 99
[~2024-04-28] MED LIST changes: +PATIENTS OWN MEDICATION (FERRLECIT 125 MG) IV ONE
[2024-04-28] MEDS: DOBUTamine 1000MCG/ML 250 ML IV ONE ×2 (08:33→08:38)
[2024-04-28] MEDS: SODIUM FERRIC GLUC CPLEX 62.5MG/5ML VIAL IV ONE (08:50)
[2024-04-28] MEDS: MAGNESIUM SULFATE 1GM/100ML 200 ML IV ONE (08:50)
[2024-04-28] MEDS: MAGNESIUM SULFATE 1GM/100ML 100 ML IV ONE (08:55)
[2024-04-28] MEDS: SODIUM FERR GLUC 62.5MG/5ML 110 ML IV ONE (10:55)
== END | disposition home or self-care (01) ==
LOC: CHF HDHVI 08:20
PROVIDERS: ATTEND Internal Medicine Cardiovascular Disease
DX: I13.0 Hypertensive heart and chronic kidney disease with heart failure and stage 1 through stage 4 chronic kidney disease, or unspecified chronic kidney disease (principal); E11.22 Type 2 diabetes mellitus with diabetic chronic kidney disease; I50.43 Acute on chronic combined systolic (congestive) and diastolic (congestive) heart failure; N18.30 Chronic kidney disease, stage 3 unspecified; D64.9 Anemia, unspecified; I25.5 Ischemic cardiomyopathy; I25.10 Atherosclerotic heart disease of native coronary artery without angina pectoris; I25.2 Old myocardial infarction; I48.0 Paroxysmal atrial fibrillation; E11.42 Type 2 diabetes mellitus with diabetic polyneuropathy; E11.51 Type 2 diabetes mellitus with diabetic peripheral angiopathy without gangrene; E78.5 Hyperlipidemia, unspecified; Z87.891 Personal history of nicotine dependence; Z95.810 Presence of automatic (implantable) cardiac defibrillator
CPT/HCPCS: 96365; 96366; 96368; G0463; J1250; J1642; J2916; J3475; 96367

== ENCOUNTER → 2024-05-05 | Outpatient (CLI) | payer MEDICARE ==
[2024-05-05] VITALS (10 sets, daily range): BP systolic 99–127; BP diastolic 29–59; PULSE 70–80; RESP 16; O2SAT 96
[~2024-05-05] MED LIST changes: -PATIENTS OWN MEDICATION (FERRLECIT 125 MG) IV ONE
[2024-05-05] MEDS: DOBUTamine 1000MCG/ML 250 ML IV ONE ×2 (08:51→09:56)
== END | disposition home or self-care (01) ==
LOC: CHF HDHVI 08:58
PROVIDERS: ATTEND Internal Medicine Cardiovascular Disease
DX: I13.0 Hypertensive heart and chronic kidney disease with heart failure and stage 1 through stage 4 chronic kidney disease, or unspecified chronic kidney disease (principal); E11.22 Type 2 diabetes mellitus with diabetic chronic kidney disease; I50.43 Acute on chronic combined systolic (congestive) and diastolic (congestive) heart failure; N18.30 Chronic kidney disease, stage 3 unspecified; I25.5 Ischemic cardiomyopathy; I25.10 Atherosclerotic heart disease of native coronary artery without angina pectoris; I25.2 Old myocardial infarction; I48.0 Paroxysmal atrial fibrillation; E11.42 Type 2 diabetes mellitus with diabetic polyneuropathy; E11.51 Type 2 diabetes mellitus with diabetic peripheral angiopathy without gangrene; E78.5 Hyperlipidemia, unspecified; E03.9 Hypothyroidism, unspecified; Z79.899 Other long term (current) drug therapy; Z87.891 Personal history of nicotine dependence; Z95.810 Presence of automatic (implantable) cardiac defibrillator
CPT/HCPCS: 96365; 96366; G0463; J1250; J1642

== ENCOUNTER → 2024-05-07 | Outpatient (CLI) | payer MEDICARE ==
[2024-05-07] VITALS (10 sets, daily range): BP systolic 112–138; BP diastolic 37–57; PULSE 69–91; RESP 16; O2SAT 97
[2024-05-07] MEDS: DOBUTamine 1000MCG/ML 250 ML IV ONE ×2 (08:57→09:43)
[2024-05-07] MEDS: CYANOCOBALAMIN (B-12) 1000 MCG/1 ML VIAL ONE (11:46)
[2024-05-07] MEDS: CYANOCOBALAMIN (B-12) 1000 MCG/1 ML VIAL IM ONE (12:41)
--- NOTE | 2024-05-07 13:22 | DVH ---
EXAM: CT HEAD WITHOUT CONTRAST HISTORY: HEADACHE COMPARISON: None TECHNIQUE: Axial images of the head were obtained and reformatted in coronal and sagittal planes. All CT scans at this medical facility are performed using dose modulation techniques as appropriate t o a performed exam including the following: Automated exposure control was utilized; adjustment of th e MA and/or KV according to patient size; and use of iterative reconstruction technique. CT Dose: CTDI volume is 51.04 mGy. Dose-length product is 816.57 mGy*cm FINDINGS: There is no evidence of acute intracranial hemorrhage, mass, mass effect midline shift. There is a sm all chronic infarct extending from the right arango radiata into the right basal ganglia. There is al so an additional small chronic lacunar infarct in the right basal ganglia. There are chronic microvas cular white matter ischemic changes. There is no hydrocephalus or extra-axial fluid collection. The visualized paranasal sinuses and mastoid air cells are clear. The calvarium is intact. IMPRESSION: 1. No acute intracranial process. HS:Y
== END | disposition home or self-care (01) ==
LOC: CHF HDHVI 08:48
PROVIDERS: ATTEND Internal Medicine Cardiovascular Disease
DX: I50.43 Acute on chronic combined systolic (congestive) and diastolic (congestive) heart failure (principal); I25.5 Ischemic cardiomyopathy; I51.7 Cardiomegaly; D64.9 Anemia, unspecified; R51.9 Headache, unspecified
CPT/HCPCS: 70450; 96365; 96366; 96372; G0463; J1250; J1642; J3420

== ENCOUNTER → 2024-05-11 | Outpatient (CLI) | payer MEDICARE | END | disposition home or self-care (01) | LOC: Rad HDHVI 09:21 | PROVIDERS: ATTEND Internal Medicine Cardiovascular Disease | DX: I50.23 Acute on chronic systolic (congestive) heart failure (principal) | CPT/HCPCS: 93880 ==

== ENCOUNTER → 2024-05-14 | Outpatient (CLI) | payer MEDICARE ==
[2024-05-14] VITALS (11 sets, daily range): BP systolic 94–120; BP diastolic 40–52; PULSE 65–71; RESP 16; O2SAT 99
[2024-05-14] MEDS: DOBUTamine 1000MCG/ML 250 ML IV ONE ×2 (08:42→08:53)
== END | disposition home or self-care (01) ==
LOC: CHF HDHVI 08:30
PROVIDERS: ATTEND Internal Medicine Cardiovascular Disease
DX: I13.0 Hypertensive heart and chronic kidney disease with heart failure and stage 1 through stage 4 chronic kidney disease, or unspecified chronic kidney disease (principal); E11.22 Type 2 diabetes mellitus with diabetic chronic kidney disease; I50.43 Acute on chronic combined systolic (congestive) and diastolic (congestive) heart failure; N18.30 Chronic kidney disease, stage 3 unspecified; I25.5 Ischemic cardiomyopathy; I25.10 Atherosclerotic heart disease of native coronary artery without angina pectoris; I25.2 Old myocardial infarction; I48.0 Paroxysmal atrial fibrillation; E11.42 Type 2 diabetes mellitus with diabetic polyneuropathy; E11.51 Type 2 diabetes mellitus with diabetic peripheral angiopathy without gangrene; E78.5 Hyperlipidemia, unspecified; Z87.891 Personal history of nicotine dependence; Z79.899 Other long term (current) drug therapy; Z95.810 Presence of automatic (implantable) cardiac defibrillator
CPT/HCPCS: 96365; 96366; G0463; J1250; J1642

== ENCOUNTER → 2024-05-21 | Outpatient (CLI) | payer MEDICARE ==
[2024-05-21] VITALS (12 sets, daily range): BP systolic 102–136; BP diastolic 41–53; PULSE 65–79; RESP 16; O2SAT 99
[2024-05-21] MEDS: DOBUTamine 1000MCG/ML 250 ML IV ONE ×2 (08:44→08:55)
[2024-05-21] MEDS: IRON SUCROSE 20 mg/ml 10ml VIAL IV ONE (08:56)
[2024-05-21] MEDS: IRON SUCROSE COMPLEX 110 ML IV ONE (09:05)
== END | disposition home or self-care (01) ==
LOC: CHF HDHVI 08:29
PROVIDERS: ATTEND Internal Medicine Cardiovascular Disease
DX: I25.5 Ischemic cardiomyopathy (principal); I13.0 Hypertensive heart and chronic kidney disease with heart failure and stage 1 through stage 4 chronic kidney disease, or unspecified chronic kidney disease; E11.22 Type 2 diabetes mellitus with diabetic chronic kidney disease; E11.42 Type 2 diabetes mellitus with diabetic polyneuropathy; E11.51 Type 2 diabetes mellitus with diabetic peripheral angiopathy without gangrene; N18.30 Chronic kidney disease, stage 3 unspecified; I50.43 Acute on chronic combined systolic (congestive) and diastolic (congestive) heart failure; E78.00 Pure hypercholesterolemia, unspecified; Z79.899 Other long term (current) drug therapy
CPT/HCPCS: 96365; 96366; 96368; G0463; J1250; J1642; J1756; 96367

== ENCOUNTER → 2024-05-26 | Outpatient (CLI) | payer MEDICARE ==
[2024-05-26] VITALS (10 sets, daily range): BP systolic 94–118; BP diastolic 36–47; PULSE 68–91; RESP 16; O2SAT 96
[2024-05-26] MEDS: DOBUTamine 1000MCG/ML 250 ML IV ONE ×2 (08:36→08:43)
== END | disposition home or self-care (01) ==
LOC: CHF HDHVI 08:09
PROVIDERS: ATTEND Internal Medicine Cardiovascular Disease
DX: I13.0 Hypertensive heart and chronic kidney disease with heart failure and stage 1 through stage 4 chronic kidney disease, or unspecified chronic kidney disease (principal); E11.22 Type 2 diabetes mellitus with diabetic chronic kidney disease; N18.30 Chronic kidney disease, stage 3 unspecified; I50.43 Acute on chronic combined systolic (congestive) and diastolic (congestive) heart failure; I25.5 Ischemic cardiomyopathy; E78.00 Pure hypercholesterolemia, unspecified; E11.42 Type 2 diabetes mellitus with diabetic polyneuropathy; E11.51 Type 2 diabetes mellitus with diabetic peripheral angiopathy without gangrene; E78.5 Hyperlipidemia, unspecified; I25.10 Atherosclerotic heart disease of native coronary artery without angina pectoris; I25.2 Old myocardial infarction; I48.0 Paroxysmal atrial fibrillation; E03.9 Hypothyroidism, unspecified; Z87.891 Personal history of nicotine dependence; Z79.899 Other long term (current) drug therapy; Z95.810 Presence of automatic (implantable) cardiac defibrillator
CPT/HCPCS: 96365; 96366; G0463; J1250; J1642

== ENCOUNTER → 2024-06-02 | Outpatient (CLI) | payer MEDICARE ==
[2024-06-02] VITALS (11 sets, daily range): BP systolic 95–119; BP diastolic 31–50; PULSE 68–79; RESP 16; O2SAT 97
[~2024-06-02] VITALS: Ht 33 cm; Wt 63.5 kg
[2024-06-02] MEDS: DOBUTamine 1000MCG/ML 250 ML IV ONE ×2 (08:17→08:32)
[2024-06-02] MEDS: SODIUM FERRIC GLUC CPLEX 62.5MG/5ML VIAL IV ONE (08:45)
[2024-06-02] MEDS: [UNRECOGNIZED DRUG - OTHER] IV ONE (08:49)
[2024-06-02] MEDS: CYANOCOBALAMIN (B-12) 1000 MCG/1 ML VIAL ONE (10:50)
[2024-06-02] MEDS: CYANOCOBALAMIN (B-12) 1000 MCG/1 ML VIAL IM ONE (12:33)
== END | disposition home or self-care (01) ==
LOC: CHF HDHVI 08:10
PROVIDERS: ATTEND Internal Medicine Cardiovascular Disease
DX: I13.0 Hypertensive heart and chronic kidney disease with heart failure and stage 1 through stage 4 chronic kidney disease, or unspecified chronic kidney disease (principal); E11.22 Type 2 diabetes mellitus with diabetic chronic kidney disease; N18.30 Chronic kidney disease, stage 3 unspecified; I50.43 Acute on chronic combined systolic (congestive) and diastolic (congestive) heart failure; I25.5 Ischemic cardiomyopathy; D64.9 Anemia, unspecified; I25.10 Atherosclerotic heart disease of native coronary artery without angina pectoris; E78.00 Pure hypercholesterolemia, unspecified; E03.9 Hypothyroidism, unspecified; I25.2 Old myocardial infarction; I48.0 Paroxysmal atrial fibrillation; E11.42 Type 2 diabetes mellitus with diabetic polyneuropathy; E11.51 Type 2 diabetes mellitus with diabetic peripheral angiopathy without gangrene; Z79.899 Other long term (current) drug therapy; Z87.891 Personal history of nicotine dependence; Z95.810 Presence of automatic (implantable) cardiac defibrillator
CPT/HCPCS: 96365; 96366; 96368; 96372; G0463; J1250; J1642; J2916; J3420

== ENCOUNTER → 2024-06-04 | Outpatient (CLI) | payer MEDICARE ==
[2024-06-04] VITALS (11 sets, daily range): BP systolic 104–129; BP diastolic 40–55; PULSE 67–81; RESP 16; O2SAT 97
[~2024-06-04] MED LIST changes: +PATIENTS OWN MEDICATION (FERRLECIT 125 MG) IV ONE
[2024-06-04] MEDS: SODIUM FERRIC GLUC CPLEX 62.5MG/5ML VIAL IV ONE (08:48)
[2024-06-04] MEDS: DOBUTamine 1000MCG/ML 250 ML IV ONE ×2 (08:48→08:56)
[2024-06-04] MEDS: SODIUM FERR GLUC 62.5MG/5ML 110 ML IV ONE (11:40)
== END | disposition home or self-care (01) ==
LOC: CHF HDHVI 08:36
PROVIDERS: ATTEND Internal Medicine Cardiovascular Disease
DX: I13.0 Hypertensive heart and chronic kidney disease with heart failure and stage 1 through stage 4 chronic kidney disease, or unspecified chronic kidney disease (principal); E11.22 Type 2 diabetes mellitus with diabetic chronic kidney disease; I50.43 Acute on chronic combined systolic (congestive) and diastolic (congestive) heart failure; N18.30 Chronic kidney disease, stage 3 unspecified; I25.10 Atherosclerotic heart disease of native coronary artery without angina pectoris; I25.5 Ischemic cardiomyopathy; I25.2 Old myocardial infarction; I48.0 Paroxysmal atrial fibrillation; E11.42 Type 2 diabetes mellitus with diabetic polyneuropathy; E11.51 Type 2 diabetes mellitus with diabetic peripheral angiopathy without gangrene; E78.5 Hyperlipidemia, unspecified; E03.9 Hypothyroidism, unspecified; Z87.891 Personal history of nicotine dependence; Z79.899 Other long term (current) drug therapy; Z95.810 Presence of automatic (implantable) cardiac defibrillator
CPT/HCPCS: 96365; 96366; 96368; G0463; J1250; J1642; J2916

== ENCOUNTER → 2024-06-09 | Outpatient (CLI) | payer MEDICARE ==
[2024-06-09] VITALS (12 sets, daily range): BP systolic 102–120; BP diastolic 35–73; PULSE 69–81; RESP 16; O2SAT 97
[~2024-06-09] MED LIST changes: -PATIENTS OWN MEDICATION (FERRLECIT 125 MG) IV ONE
[2024-06-09] MEDS: PATIENTS OWN MEDICATION (FERRLECIT 125 MG) IV ONE (08:25)
[2024-06-09] MEDS: SODIUM FERRIC GLUC CPLEX 62.5MG/5ML VIAL IV ONE (08:27)
[2024-06-09] MEDS: DOBUTamine 1000MCG/ML 250 ML IV ONE ×2 (08:30→08:34)
== END | disposition home or self-care (01) ==
LOC: CHF HDHVI 08:19
PROVIDERS: ATTEND Internal Medicine Cardiovascular Disease
DX: I13.0 Hypertensive heart and chronic kidney disease with heart failure and stage 1 through stage 4 chronic kidney disease, or unspecified chronic kidney disease (principal); N18.30 Chronic kidney disease, stage 3 unspecified; E11.22 Type 2 diabetes mellitus with diabetic chronic kidney disease; I50.43 Acute on chronic combined systolic (congestive) and diastolic (congestive) heart failure; I25.5 Ischemic cardiomyopathy; D64.9 Anemia, unspecified; I25.10 Atherosclerotic heart disease of native coronary artery without angina pectoris; E78.00 Pure hypercholesterolemia, unspecified; E03.9 Hypothyroidism, unspecified; I25.2 Old myocardial infarction; I48.0 Paroxysmal atrial fibrillation; E11.42 Type 2 diabetes mellitus with diabetic polyneuropathy; E11.51 Type 2 diabetes mellitus with diabetic peripheral angiopathy without gangrene; Z79.899 Other long term (current) drug therapy; Z87.891 Personal history of nicotine dependence; Z95.810 Presence of automatic (implantable) cardiac defibrillator
CPT/HCPCS: 96365; 96366; 96368; G0463; J1250; J1642; J2916

== ENCOUNTER → 2024-06-12 | Outpatient (CLI) | payer MEDICARE ==
[2024-06-12] VITALS (12 sets, daily range): BP systolic 90–113; BP diastolic 41–61; PULSE 73–87; RESP 16; O2SAT 97
[2024-06-12] MEDS: DOBUTamine 1000MCG/ML 250 ML IV ONE ×2 (08:39→08:42)
== END | disposition home or self-care (01) ==
LOC: CHF HDHVI 08:22
PROVIDERS: ATTEND Internal Medicine Cardiovascular Disease
DX: I13.0 Hypertensive heart and chronic kidney disease with heart failure and stage 1 through stage 4 chronic kidney disease, or unspecified chronic kidney disease (principal); E11.22 Type 2 diabetes mellitus with diabetic chronic kidney disease; N18.30 Chronic kidney disease, stage 3 unspecified; I50.43 Acute on chronic combined systolic (congestive) and diastolic (congestive) heart failure; I25.5 Ischemic cardiomyopathy; D64.9 Anemia, unspecified; I25.10 Atherosclerotic heart disease of native coronary artery without angina pectoris; E03.9 Hypothyroidism, unspecified; I25.2 Old myocardial infarction; I48.0 Paroxysmal atrial fibrillation; E78.00 Pure hypercholesterolemia, unspecified; E11.42 Type 2 diabetes mellitus with diabetic polyneuropathy; E11.51 Type 2 diabetes mellitus with diabetic peripheral angiopathy without gangrene; Z87.891 Personal history of nicotine dependence; Z79.899 Other long term (current) drug therapy; Z95.810 Presence of automatic (implantable) cardiac defibrillator
CPT/HCPCS: 96365; 96366; G0463; J1250; J1642

== ENCOUNTER → 2024-06-16 | Outpatient (CLI) | payer MEDICARE ==
[2024-06-16] VITALS (12 sets, daily range): BP systolic 92–115; BP diastolic 38–45; PULSE 69–89; RESP 16; O2SAT 97
[~2024-06-16] MED LIST changes: +ASPI-543 PO; +CLOP75TA28 PO; +INSLANTI SC; +LACT10SO3 PO; +LORA-1121 PO
[2024-06-16] MEDS: DOBUTamine 1000MCG/ML 250 ML IV ONE ×2 (08:42→08:48)
[2024-06-16] MEDS: IRON SUCROSE 20 mg/ml 10ml VIAL IV ONE (08:43)
[2024-06-16] MEDS: [UNRECOGNIZED DRUG - OTHER] IV ONE (08:56)
[2024-06-16] MEDS: CYANOCOBALAMIN (B-12) 1000 MCG/1 ML VIAL ONE (12:43)
[2024-06-16] MEDS: CYANOCOBALAMIN (B-12) 1000 MCG/1 ML VIAL IM ONE (13:32)
== END | disposition home or self-care (01) ==
LOC: CHF HDHVI 08:29
PROVIDERS: ATTEND Internal Medicine Cardiovascular Disease
DX: I50.43 Acute on chronic combined systolic (congestive) and diastolic (congestive) heart failure (principal); D64.9 Anemia, unspecified; I51.7 Cardiomegaly; I25.5 Ischemic cardiomyopathy; I25.2 Old myocardial infarction; I25.10 Atherosclerotic heart disease of native coronary artery without angina pectoris; I48.91 Unspecified atrial fibrillation; E78.5 Hyperlipidemia, unspecified; I12.9 Hypertensive chronic kidney disease with stage 1 through stage 4 chronic kidney disease, or unspecified chronic kidney disease; E11.22 Type 2 diabetes mellitus with diabetic chronic kidney disease; N18.30 Chronic kidney disease, stage 3 unspecified; Z87.891 Personal history of nicotine dependence; Z79.899 Other long term (current) drug therapy
CPT/HCPCS: 96365; 96366; 96368; 96372; G0463; J1250; J1642; J1756; J3420

== ENCOUNTER → 2024-06-18 | Outpatient (CLI) | payer MEDICARE ==
[2024-06-18] VITALS (12 sets, daily range): BP systolic 105–122; BP diastolic 43–55; PULSE 65–82; RESP 16; O2SAT 97
[2024-06-18] MEDS: DOBUTamine 1000MCG/ML 250 ML IV ONE ×2 (08:50→09:00)
[2024-06-18] MEDS: BUMETANIDE INJECTION 10 ML ONE (10:05)
[2024-06-18] MEDS: POTASSIUM CHL 10 Meq TABLET PO ONE (10:05)
[2024-06-18] MEDS: BUMETANIDE 2.5mg/10ml (0.25 mg/ml) INJ IV ONE (10:08)
[2024-06-18] MEDS: POTASSIUM CHL 20 Meq TABLET PO ONE (10:10)
--- NOTE | 2024-06-18 10:20 | DVH ---
XY CHEST TWO VIEWS ROUTINE CLINICAL HISTORY: PRE OP COMPARISON: XY CHEST TWO VIEWS ROUTINE on DOS: 01/01/24, XY CHEST TWO VIEWS ROUTINE on DOS: 01/07/23 TECHNIQUE: Frontal and lateral view of the chest was obtained FINDINGS: Lines and Tubes: Right chest Port-A-Cath terminates in the right atrium. Left chest cardiac AICD. Lungs: Hazy right lower lung zone opacity. Pleura: Small to moderate right pleural effusion. No pneumothorax. Cardiomediastinal contours: Unremarkable Bones: No acute osseous abnormality. IMPRESSION: 1. Small to moderate right pleural effusion. Right basilar compressive atelectasis versus infiltrate. 2. Right chest port-A-Cath terminating right atrium. 3. Left chest cardiac AICD. HS:Y
== END | disposition home or self-care (01) ==
LOC: CHF HDHVI 08:35
PROVIDERS: ATTEND Internal Medicine Cardiovascular Disease
DX: I13.0 Hypertensive heart and chronic kidney disease with heart failure and stage 1 through stage 4 chronic kidney disease, or unspecified chronic kidney disease (principal); E11.22 Type 2 diabetes mellitus with diabetic chronic kidney disease; N18.4 Chronic kidney disease, stage 4 (severe); I50.43 Acute on chronic combined systolic (congestive) and diastolic (congestive) heart failure; I25.2 Old myocardial infarction; I48.91 Unspecified atrial fibrillation; E03.9 Hypothyroidism, unspecified; Z79.899 Other long term (current) drug therapy; Z87.891 Personal history of nicotine dependence
CPT/HCPCS: 71046; 93005; 96365; 96366; 96375; G0463; J1250; J1642

== ENCOUNTER → 2024-06-22 | Outpatient (CLI) | payer MEDICARE ==
[2024-06-22 11:12] LABS: Basophils # (auto) 0 10 ^3/uL (0-0.2); Basophils % (auto) 0.6 % (0.0-2.0); Eosinophils # (auto) 0.1 10 ^3/uL (0-0.8); Eosinophils % (auto) 1.7 % (0.0-7.0); Lymphocytes # (auto) 0.6 10 ^3/uL (0.4-5.4); Monocytes # (auto) 0.3 10 ^3/uL (0-1.3)
[2024-06-22 11:15] LABS: Hematocrit 24.1 % (41.0-53.0); Hemoglobin 8.4 g/dL (13.5-17.5); Lymphocytes % (auto) 14.2 % (10.0-50.0); Mean Corpuscular Hgb Conc. 34.7 g/dL (32.0-36.0); Mean Corpuscular Volume 100.8 fL (80.0-100.0); Monocytes % (auto) 7.3 % (0.0-12.0); Neutrophils # (auto) 3.1 10 ^3/uL (1.6-8.6); Neutrophils % (auto) 76.2 % (37.0-80.0); Nucleated Red Blood Cells % 0.3 %; Platelet Count (auto) 102 10^3/uL (140-450); Red Blood Cells 2.39 10^6/uL (4.5-5.90); Red Cell Distribution Width 17.7 % (11.8-14.3)
[2024-06-22 11:35] LABS: INR 1.33 (0.9-1.15); Partial Thromboplastin Time 27.1 SEC (24.5-34.5); Prothrombin Time 13.8 sec (9.3-11.8)
[2024-06-22 11:59] LABS: Chloride 105 mmol/L (98-107); Potassium 4.1 mmol/L (3.5-5.1); Sodium 139 mmol/L (136-145)
[2024-06-22 12:00] LABS: Anion Gap 9 (5-15); Calcium 9.2 mg/dL (8.7-10.4); Carbon Dioxide 25 mmol/L (20-31)
[2024-06-22 12:07] LABS: BUN/Creatinine Ratio 20.5 (10.0-20.0)
[2024-06-22 12:09] LABS: Blood Urea Nitrogen 57 mg/dL (9-23); Glucose 178 mg/dL (74-106)
== END | disposition home or self-care (01) ==
LOC: LAB 10:32
PROVIDERS: ATTEND Internal Medicine Cardiovascular Disease
DX: Z01.812 Encounter for preprocedural laboratory examination (principal); R79.1 Abnormal coagulation profile
CPT/HCPCS: 36415; 80048; 85025; 85610; 85730

== ENCOUNTER 2024-06-25 06:38 | Day surgery (SDC) | payer MEDICARE ==
[2024-06-25] VITALS (9 sets, daily range): BP systolic 88–103; BP diastolic 38–52; PULSE 65–91; RESP 11–15; TEMP 97.5; O2SAT 93–98
[~2024-06-25] VITALS: Ht 162.6 cm; Wt 61.2 kg
[~2024-06-25 06:38] MED LIST changes: -EMPA1TAB PO; -LACT10SO3 PO
[2024-06-25] MEDS ORDERED: VANCOMYCIN HCL 1000 MG VL ONE (12:09)
[2024-06-25] MEDS ORDERED: MIDAZOLAM HCL 2MG/2ML 2ml VIAL (1mg/ml) ONE (12:10)
[2024-06-25] MEDS ORDERED: LIDOCAINE 2%HCL (LOCAL ANESTH.) INJ 20ML MDV ONE ×2 (12:10→12:45)
[2024-06-25] MEDS ORDERED: fentaNYL CITRATE 100 MCG/2 ML VL ONE (12:10)
[2024-06-25] MEDS ORDERED: VANCOMYCIN 1GM/250ML KIT 250 ML IV ONE (12:10)
--- NOTE | 2024-06-25 13:48 | DVHHP ---
ADMIT DATE: 06/25/2024 HISTORY OF PRESENT ILLNESS: The patient with history of ischemic cardiomyopathy, depressed left ventricular ejection fraction, now to undergo Bi-V AICD generator change. The patient with congestive heart failure, EF less than 20%. The patient recently had atrial fibrillation that required cardioversion as well. The patient also had recent coronary angiography, shows patent vessels. Not a candidate for any revascularization at this time. He is very compliant on his medication and also very compliant in terms of following his regimen at the congestive heart failure clinic. He has been doing extremely well and his weight has been very stable. His fluid status has been very stable as well. PERTINENT MEDICAL HISTORY: Significant for: * Ischemic cardiomyopathy. * Coronary artery disease and coronary artery bypass grafting. * Hypertension. * Hyperlipidemia. REVIEW OF SYSTEMS: He denies any fever or chills, melena or hematochezia. No bleeding diathesis. No hematemesis or hemoptysis. No history of any liver disease. No history of lung disease. PHYSICAL EXAMINATION: VITAL SIGNS: Blood pressure is 104/82, pulse of 80 and irregular. HEENT: Pupils are reactive. Funduscopic exam is benign. Sclerae anicteric. Oral mucosa moist. NECK: No JVD appreciated. Carotid pulses are 2+ symmetrical. No cervical adenopathy, no supraclavicular adenopathy. No nuchal rigidity. PULMONARY: Crackles at the bases. CARDIOVASCULAR: Regular rate. PMI is diffuse, laterally displaced however. ABDOMEN: Soft, nontender. Normal bowel sounds. SKIN: Unremarkable. EXTREMITIES: Unremarkable, other than 1+ edema, 2+ pulses. NEUROLOGIC: The patient is intact. ASSESSMENT AND PLAN: Thus, the patient with ischemic cardiomyopathy, heart failure with reduced ejection fraction, now to undergo Bi-V AICD generator change. Further recommendations after the generator change. Jayy Louise MD SA/SZUAN TID: [id number] RECEIPT: [id number]
--- NOTE | 2024-06-25 14:21 | DVHOP ---
DATE OF SURGERY: 06/25/2024 PROCEDURES PERFORMED: * Explantation of Bi-V AICD and implantation of new Bi-V AICD. * Conscious sedation. * Cardioversion from atrial tachycardia to sinus rhythm. DESCRIPTION OF PROCEDURE: The patient was prepped and draped under sterile condition. Xylocaine 1% was used to anesthetize the left subclavicular region. Using a 10 blade, linear incision was made. Using blunt dissection and electrocautery, then pocket was dissected out. All the leads were exposed. Careful dissection of the scar tissue was performed. Following that, the old generator was explanted and the new generator was implanted. The patient was pacer dependent. Following that, the generator was implanted. Pocket was irrigated using vancomycin and saline solution. The patient had because of diffuse oozing of the wound after excision of all the scar tissue. Pocket was closed using 3-0 Monoderm subcutaneous sutures followed by 3-0 Monoderm subcuticular sutures. There were no complications. The patient tolerated the procedure well. RESULTS: The patient had cardioversion resulting in: 1. Conversion from atrial tach to sinus rhythm, paced at a rate of 80, AV sequentially. 2. The patient's explantation of old generator which is IPERIA 7HF-T, serial number [id number]. Initial implant date was 09/20/2016. New generator implanted is [place] Richard 7 HF-T, model number 052976, serial number [id number]. RV lead is Edilson lead, LV lead was a [place] [employer] [employer] [id number], serial number [id number]. RV lead is Edilson 2CR6, serial number [id number]. Atrial lead is [id number] Edilson, serial number [id number]. Threshold parameters: Atrium P-wave amplitude 2.8 millivolts, threshold of 1.2 volts at 0.4 milliseconds pulse duration, pacing impedance of 300 ohms. Right ventricular lead R-wave amplitude, the patient is pacer dependent. Capture 1.5 volts at 0.4 milliseconds pulse duration, pacing impedance of 502 ohms, shock impedance of 37. Left ventricular lead R wave non-capture pacer dependent, capture 1.4 volts at 0.4 milliseconds pulse duration, pacing impedance of 306 ohms. CONCLUSION: The patient has explantation of Bi-V AICD and implantation of new Bi-V AICD BIOTRONIK device. Cardioversion was performed with 30-joule shock. The patient cardioverted from atrial tachycardia to sinus rhythm. Now being AV sequentially paced at 80 beats per minute. Jayy Louise MD SA/LUCAS/CHERRY TID: [id number] RECEIPT: [id number]
--- NOTE | 2024-06-25 15:56 | DVHDS ---
DATE OF DISCHARGE: 06/25/2024 DISCHARGE DIAGNOSES: Status post Bi-V AICD generator change, explantation of Bi-V AICD, cardioversion from atrial tachycardia to sinus rhythm, and now AV sequentially paced. The patient is stable at the time of discharge. DISPOSITION: Home. ACTIVITY: As instructed. DIET: Will be 2 gram sodium diet. The patient is to resume all home medication. Anticoagulation will be held for at least 5 days. The patient, however, put on antibiotics, Keflex 500 mg q.i.d. for 7 days. Follow up with me in 1 week. Jayy Louise MD SA/KULWANT TID: [id number] RECEIPT: [id number]
== END 2024-06-25 16:42 | disposition home or self-care (01) ==
LOC: CATH 06:38
PROVIDERS: ATTEND Internal Medicine Cardiovascular Disease
DX: Z45.02 Encounter for adjustment and management of automatic implantable cardiac defibrillator (principal); E78.5 Hyperlipidemia, unspecified; I11.0 Hypertensive heart disease with heart failure; I25.10 Atherosclerotic heart disease of native coronary artery without angina pectoris; I25.5 Ischemic cardiomyopathy; I47.19 Other supraventricular tachycardia; I48.91 Unspecified atrial fibrillation; Z95.1 Presence of aortocoronary bypass graft; Z95.810 Presence of automatic (implantable) cardiac defibrillator; Z79.899 Other long term (current) drug therapy
CPT/HCPCS: 33264; 92960; C1882; J2250; J3010; J3370; 99152; 99153

== ENCOUNTER → 2024-06-29 | Outpatient (CLI) | payer MEDICARE ==
[2024-06-29] VITALS (11 sets, daily range): BP systolic 104–118; BP diastolic 38–76; PULSE 66–97; RESP 16; O2SAT 97
[~2024-06-29] MED LIST changes: +EMPA1TAB PO; +LACT10SO3 PO
[2024-06-29] MEDS: DOBUTamine 1000MCG/ML 250 ML IV ONE ×2 (08:47→09:00)
== END | disposition home or self-care (01) ==
LOC: CHF HDHVI 08:34
PROVIDERS: ATTEND Internal Medicine Cardiovascular Disease
DX: I13.0 Hypertensive heart and chronic kidney disease with heart failure and stage 1 through stage 4 chronic kidney disease, or unspecified chronic kidney disease (principal); E11.22 Type 2 diabetes mellitus with diabetic chronic kidney disease; N18.30 Chronic kidney disease, stage 3 unspecified; I50.43 Acute on chronic combined systolic (congestive) and diastolic (congestive) heart failure; I25.5 Ischemic cardiomyopathy; I25.10 Atherosclerotic heart disease of native coronary artery without angina pectoris; I25.2 Old myocardial infarction; E03.9 Hypothyroidism, unspecified; I48.0 Paroxysmal atrial fibrillation; E78.00 Pure hypercholesterolemia, unspecified; E11.51 Type 2 diabetes mellitus with diabetic peripheral angiopathy without gangrene; E11.42 Type 2 diabetes mellitus with diabetic polyneuropathy; Z79.899 Other long term (current) drug therapy; Z87.891 Personal history of nicotine dependence; Z95.810 Presence of automatic (implantable) cardiac defibrillator
CPT/HCPCS: 96365; 96366; G0463; J1250; J1642

== ENCOUNTER → 2024-07-02 | Outpatient (CLI) | payer MEDICARE ==
[2024-07-02] VITALS (12 sets, daily range): BP systolic 104–120; BP diastolic 37–48; PULSE 69–86; RESP 16; O2SAT 95
[2024-07-02] MEDS: DOBUTamine 1000MCG/ML 250 ML IV ONE ×2 (08:44→08:51)
== END | disposition home or self-care (01) ==
LOC: CHF HDHVI 08:18
PROVIDERS: ATTEND Internal Medicine Cardiovascular Disease
DX: I50.43 Acute on chronic combined systolic (congestive) and diastolic (congestive) heart failure (principal); E78.5 Hyperlipidemia, unspecified; I25.2 Old myocardial infarction; E03.9 Hypothyroidism, unspecified; I48.91 Unspecified atrial fibrillation; I25.5 Ischemic cardiomyopathy; I13.0 Hypertensive heart and chronic kidney disease with heart failure and stage 1 through stage 4 chronic kidney disease, or unspecified chronic kidney disease; E11.22 Type 2 diabetes mellitus with diabetic chronic kidney disease; N18.4 Chronic kidney disease, stage 4 (severe); D64.9 Anemia, unspecified
CPT/HCPCS: 96365; 96366; G0463; J1250; J1642

== ENCOUNTER → 2024-07-07 | Outpatient (CLI) | payer MEDICARE ==
[2024-07-07] VITALS (11 sets, daily range): BP systolic 104–126; BP diastolic 46–61; PULSE 72–85; RESP 18; O2SAT 97
[~2024-07-07] VITALS: Ht 33 cm; Wt 62.6 kg
[~2024-07-07] MED LIST changes: -EMPA1TAB PO; -LACT10SO3 PO
[2024-07-07] MEDS: DOBUTamine 1000MCG/ML 250 ML IV ONE ×2 (08:32→08:43)
== END | disposition home or self-care (01) ==
LOC: CHF HDHVI 08:30
PROVIDERS: ATTEND Internal Medicine Cardiovascular Disease
DX: I13.0 Hypertensive heart and chronic kidney disease with heart failure and stage 1 through stage 4 chronic kidney disease, or unspecified chronic kidney disease (principal); E11.22 Type 2 diabetes mellitus with diabetic chronic kidney disease; N18.4 Chronic kidney disease, stage 4 (severe); I50.43 Acute on chronic combined systolic (congestive) and diastolic (congestive) heart failure; I25.2 Old myocardial infarction; E78.5 Hyperlipidemia, unspecified; E03.9 Hypothyroidism, unspecified; I48.91 Unspecified atrial fibrillation
CPT/HCPCS: 96365; 96366; G0463; J1250; J1642

== ENCOUNTER → 2024-07-10 | Outpatient (CLI) | payer MEDICARE ==
[2024-07-10] VITALS (10 sets, daily range): BP systolic 94–114; BP diastolic 41–56; PULSE 65–79; RESP 18; O2SAT 98
[2024-07-10] MEDS: MILRINONE 20MG/100ML 100 ML IV ONE ×2 (11:49→12:08)
--- NOTE | 2024-07-10 12:13 | DVH ---
CHEST RADIOGRAPH Indication: SOB Technique: Frontal and lateral view of the chest was obtained Comparison: XY CHEST TWO VIEWS ROUTINE on DOS: 06/18/24, XY CHEST TWO VIEWS ROUTINE on DOS: 01/01/24, X Y CHEST TWO VIEWS ROUTINE on DOS: 01/07/23, XY CHEST TWO VIEWS ROUTINE on DOS: 10/11/22, CXR2 on DOS: FINDINGS: Lines and Tubes: Median sternotomy. Left chest wall AICD. Right chest port in satisfactory position . Lungs: Clear Pleura: Small right pleural effusion. No pneumothorax. Cardiomediastinal contours: Unremarkable Bones: Unremarkable IMPRESSION: Small right pleural effusion.
== END | disposition home or self-care (01) ==
LOC: Rad HDHVI 11:31
PROVIDERS: ATTEND Internal Medicine Cardiovascular Disease
DX: I13.0 Hypertensive heart and chronic kidney disease with heart failure and stage 1 through stage 4 chronic kidney disease, or unspecified chronic kidney disease (principal); E11.22 Type 2 diabetes mellitus with diabetic chronic kidney disease; N18.4 Chronic kidney disease, stage 4 (severe); I50.43 Acute on chronic combined systolic (congestive) and diastolic (congestive) heart failure; I25.5 Ischemic cardiomyopathy; I25.10 Atherosclerotic heart disease of native coronary artery without angina pectoris; E03.9 Hypothyroidism, unspecified; I25.2 Old myocardial infarction; I48.0 Paroxysmal atrial fibrillation; E78.00 Pure hypercholesterolemia, unspecified; E11.42 Type 2 diabetes mellitus with diabetic polyneuropathy; E11.51 Type 2 diabetes mellitus with diabetic peripheral angiopathy without gangrene; J90 Pleural effusion, not elsewhere classified; Z79.899 Other long term (current) drug therapy; Z87.891 Personal history of nicotine dependence; Z95.810 Presence of automatic (implantable) cardiac defibrillator
CPT/HCPCS: 71046; 96365; 96366; G0463; J1642; J2260

== ENCOUNTER → 2024-07-14 | Outpatient (CLI) | payer MEDICARE ==
[2024-07-14] VITALS (12 sets, daily range): BP systolic 92–110; BP diastolic 39–51; PULSE 62–74; RESP 18; O2SAT 98
[2024-07-14] MEDS: CATHFLO ACTIVASE (ALTEPLASE) 2 MG VIAL IV ONE (08:27)
[2024-07-14] MEDS: MILRINONE 20MG/100ML 100 ML IV ONE ×2 (08:46→09:18)
[2024-07-14] MEDS: STERILE WATER 10 ML ONE (08:46)
[2024-07-14] MEDS: CATHFLO ACTIVASE (ALTEPLASE) 2 MG VIAL ONE (08:46)
== END | disposition home or self-care (01) ==
LOC: CHF HDHVI 08:22
PROVIDERS: ATTEND Internal Medicine Cardiovascular Disease
DX: I11.0 Hypertensive heart disease with heart failure (principal); I50.23 Acute on chronic systolic (congestive) heart failure; I25.5 Ischemic cardiomyopathy; D64.9 Anemia, unspecified; Z95.1 Presence of aortocoronary bypass graft
CPT/HCPCS: 36593; 96365; 96366; G0463; J1642; J2260; J2997; 99195

== ENCOUNTER → 2024-07-16 | Outpatient (CLI) | payer MEDICARE ==
[2024-07-16] VITALS (12 sets, daily range): BP systolic 92–125; BP diastolic 42–53; PULSE 64–76; RESP 16; O2SAT 97
[2024-07-16] MEDS: MILRINONE 20MG/100ML 100 ML IV ONE ×2 (08:39→08:48)
[2024-07-16] MEDS: CYANOCOBALAMIN (B-12) 1000 MCG/1 ML VIAL ONE (09:52)
[2024-07-16] MEDS: CYANOCOBALAMIN (B-12) 1000 MCG/1 ML VIAL IM ONE (12:52)
== END | disposition home or self-care (01) ==
LOC: CHF HDHVI 08:29
PROVIDERS: ATTEND Internal Medicine Cardiovascular Disease
DX: I13.0 Hypertensive heart and chronic kidney disease with heart failure and stage 1 through stage 4 chronic kidney disease, or unspecified chronic kidney disease (principal); E11.22 Type 2 diabetes mellitus with diabetic chronic kidney disease; I50.43 Acute on chronic combined systolic (congestive) and diastolic (congestive) heart failure; N18.4 Chronic kidney disease, stage 4 (severe); I25.5 Ischemic cardiomyopathy; I25.10 Atherosclerotic heart disease of native coronary artery without angina pectoris; I25.2 Old myocardial infarction; I48.0 Paroxysmal atrial fibrillation; E11.51 Type 2 diabetes mellitus with diabetic peripheral angiopathy without gangrene; E11.42 Type 2 diabetes mellitus with diabetic polyneuropathy; E78.00 Pure hypercholesterolemia, unspecified; Z87.891 Personal history of nicotine dependence; Z95.810 Presence of automatic (implantable) cardiac defibrillator; Z79.899 Other long term (current) drug therapy
CPT/HCPCS: 96365; 96366; 96372; G0463; J1642; J2260; J3420

== ENCOUNTER → 2024-07-21 | Outpatient (CLI) | payer MEDICARE ==
[2024-07-21] VITALS (12 sets, daily range): BP systolic 93–112; BP diastolic 37–80; PULSE 66–75; RESP 18; O2SAT 99
[2024-07-21] MEDS: MILRINONE 20MG/100ML 100 ML IV ONE ×2 (08:25→08:29)
== END | disposition home or self-care (01) ==
LOC: CHF HDHVI 08:24
PROVIDERS: ATTEND Internal Medicine Cardiovascular Disease
DX: I50.43 Acute on chronic combined systolic (congestive) and diastolic (congestive) heart failure (principal); I25.5 Ischemic cardiomyopathy; R06.02 Shortness of breath; I51.7 Cardiomegaly
CPT/HCPCS: 96365; 96366; G0463; J1642; J2260

== ENCOUNTER → 2024-07-23 | Outpatient (CLI) | payer MEDICARE ==
[2024-07-23] VITALS (11 sets, daily range): BP systolic 89–109; BP diastolic 43–54; PULSE 65–71; RESP 16; O2SAT 99
[2024-07-23] MEDS: MILRINONE 20MG/100ML 100 ML IV ONE ×2 (08:44→09:02)
== END | disposition home or self-care (01) ==
LOC: CHF HDHVI 08:35
PROVIDERS: ATTEND Internal Medicine Cardiovascular Disease
DX: I11.0 Hypertensive heart disease with heart failure (principal); I50.43 Acute on chronic combined systolic (congestive) and diastolic (congestive) heart failure; I25.5 Ischemic cardiomyopathy; I20.9 Angina pectoris, unspecified; E78.5 Hyperlipidemia, unspecified; Z95.1 Presence of aortocoronary bypass graft
CPT/HCPCS: 96365; 96366; G0463; J1642; J2260

== ENCOUNTER → 2024-07-30 | Outpatient (CLI) | payer MEDICARE ==
[2024-07-30] VITALS (11 sets, daily range): BP systolic 88–111; BP diastolic 41–55; PULSE 65–69; RESP 16–18; O2SAT 98
[2024-07-30] MEDS: MILRINONE 20MG/100ML 100 ML IV ONE ×2 (08:40→08:45)
== END | disposition home or self-care (01) ==
LOC: CHF HDHVI 08:30
PROVIDERS: ATTEND Internal Medicine Cardiovascular Disease
DX: I13.0 Hypertensive heart and chronic kidney disease with heart failure and stage 1 through stage 4 chronic kidney disease, or unspecified chronic kidney disease (principal); E11.22 Type 2 diabetes mellitus with diabetic chronic kidney disease; N18.4 Chronic kidney disease, stage 4 (severe); I50.43 Acute on chronic combined systolic (congestive) and diastolic (congestive) heart failure; I25.5 Ischemic cardiomyopathy; I25.10 Atherosclerotic heart disease of native coronary artery without angina pectoris; I25.2 Old myocardial infarction; E03.9 Hypothyroidism, unspecified; I48.0 Paroxysmal atrial fibrillation; E78.00 Pure hypercholesterolemia, unspecified; E11.42 Type 2 diabetes mellitus with diabetic polyneuropathy; E11.51 Type 2 diabetes mellitus with diabetic peripheral angiopathy without gangrene; Z79.899 Other long term (current) drug therapy; Z87.891 Personal history of nicotine dependence; Z95.1 Presence of aortocoronary bypass graft; Z95.810 Presence of automatic (implantable) cardiac defibrillator
CPT/HCPCS: 96365; 96366; G0463; J1642; J2260

== ENCOUNTER → 2024-08-04 | Outpatient (CLI) | payer MEDICARE ==
[2024-08-04] VITALS (11 sets, daily range): BP systolic 104–121; BP diastolic 44–60; PULSE 65–71; RESP 16; O2SAT 97
[~2024-08-04] MED LIST changes: +MILRINONE 20MG/100ML 100 ML IV ONE
[2024-08-04] MEDS: MILRINONE 20MG/100ML 100 ML IV ONE ×2 (08:39→08:44)
== END | disposition home or self-care (01) ==
LOC: CHF HDHVI 08:26
PROVIDERS: ATTEND Internal Medicine Cardiovascular Disease
DX: I13.0 Hypertensive heart and chronic kidney disease with heart failure and stage 1 through stage 4 chronic kidney disease, or unspecified chronic kidney disease (principal); I50.43 Acute on chronic combined systolic (congestive) and diastolic (congestive) heart failure; N18.4 Chronic kidney disease, stage 4 (severe); E11.22 Type 2 diabetes mellitus with diabetic chronic kidney disease; E11.42 Type 2 diabetes mellitus with diabetic polyneuropathy; E11.51 Type 2 diabetes mellitus with diabetic peripheral angiopathy without gangrene; I25.10 Atherosclerotic heart disease of native coronary artery without angina pectoris; E03.9 Hypothyroidism, unspecified; I25.5 Ischemic cardiomyopathy; E78.00 Pure hypercholesterolemia, unspecified; I48.0 Paroxysmal atrial fibrillation; I25.2 Old myocardial infarction; Z79.899 Other long term (current) drug therapy; Z87.891 Personal history of nicotine dependence; Z95.1 Presence of aortocoronary bypass graft
CPT/HCPCS: 96365; 96366; G0463; J1642; J2260

== ENCOUNTER → 2024-08-06 | Outpatient (CLI) | payer MEDICARE ==
[2024-08-06] VITALS (11 sets, daily range): BP systolic 94–146; BP diastolic 40–51; PULSE 65–69; RESP 16; O2SAT 99
[~2024-08-06] MED LIST changes: -MILRINONE 20MG/100ML 100 ML IV ONE
[2024-08-06] MEDS: MILRINONE 20MG/100ML 100 ML IV ONE ×2 (08:35→08:42)
== END | disposition home or self-care (01) ==
LOC: CHF HDHVI 08:26
PROVIDERS: ATTEND Internal Medicine Cardiovascular Disease
DX: I13.0 Hypertensive heart and chronic kidney disease with heart failure and stage 1 through stage 4 chronic kidney disease, or unspecified chronic kidney disease (principal); E11.22 Type 2 diabetes mellitus with diabetic chronic kidney disease; N18.4 Chronic kidney disease, stage 4 (severe); I50.43 Acute on chronic combined systolic (congestive) and diastolic (congestive) heart failure; I25.5 Ischemic cardiomyopathy; I25.10 Atherosclerotic heart disease of native coronary artery without angina pectoris; E03.9 Hypothyroidism, unspecified; I25.2 Old myocardial infarction; I48.0 Paroxysmal atrial fibrillation; E78.00 Pure hypercholesterolemia, unspecified; E11.42 Type 2 diabetes mellitus with diabetic polyneuropathy; E11.51 Type 2 diabetes mellitus with diabetic peripheral angiopathy without gangrene; Z79.899 Other long term (current) drug therapy; Z87.891 Personal history of nicotine dependence; Z95.1 Presence of aortocoronary bypass graft; Z95.810 Presence of automatic (implantable) cardiac defibrillator
CPT/HCPCS: 96365; 96366; G0463; J1642; J2260

== ENCOUNTER → 2024-08-13 | Outpatient (CLI) | payer MEDICARE ==
[2024-08-13] VITALS (12 sets, daily range): BP systolic 86–110; BP diastolic 38–47; PULSE 65–68; RESP 16; O2SAT 98
[2024-08-13] MEDS: MILRINONE 20MG/100ML 100 ML IV ONE ×2 (08:48→08:52)
[2024-08-13] MEDS: CYANOCOBALAMIN (B-12) 1000 MCG/1 ML VIAL ONE (12:45)
[2024-08-13] MEDS: CYANOCOBALAMIN (B-12) 1000 MCG/1 ML VIAL IM ONE (12:58)
== END | disposition home or self-care (01) ==
LOC: CHF HDHVI 08:26
PROVIDERS: ATTEND Internal Medicine Cardiovascular Disease
DX: I13.0 Hypertensive heart and chronic kidney disease with heart failure and stage 1 through stage 4 chronic kidney disease, or unspecified chronic kidney disease (principal); E11.22 Type 2 diabetes mellitus with diabetic chronic kidney disease; N18.4 Chronic kidney disease, stage 4 (severe); I50.43 Acute on chronic combined systolic (congestive) and diastolic (congestive) heart failure; D64.9 Anemia, unspecified; I25.5 Ischemic cardiomyopathy; I48.91 Unspecified atrial fibrillation; I42.9 Cardiomyopathy, unspecified; E78.5 Hyperlipidemia, unspecified; E03.9 Hypothyroidism, unspecified; Z95.810 Presence of automatic (implantable) cardiac defibrillator; Z95.1 Presence of aortocoronary bypass graft; Z79.899 Other long term (current) drug therapy; Z87.891 Personal history of nicotine dependence
CPT/HCPCS: 96365; 96366; 96372; G0463; J1642; J2260; J3420

== ENCOUNTER → 2024-08-20 | Outpatient (CLI) | payer MEDICARE ==
[2024-08-20] VITALS (12 sets, daily range): BP systolic 86–101; BP diastolic 38–52; PULSE 66–77; RESP 16; O2SAT 99
[2024-08-20] MEDS: MILRINONE 20MG/100ML 100 ML IV ONE ×2 (08:57→09:13)
== END | disposition home or self-care (01) ==
LOC: CHF HDHVI 09:05
PROVIDERS: ATTEND Internal Medicine Cardiovascular Disease
DX: I13.0 Hypertensive heart and chronic kidney disease with heart failure and stage 1 through stage 4 chronic kidney disease, or unspecified chronic kidney disease (principal); I50.43 Acute on chronic combined systolic (congestive) and diastolic (congestive) heart failure; E11.22 Type 2 diabetes mellitus with diabetic chronic kidney disease; N18.4 Chronic kidney disease, stage 4 (severe); E11.51 Type 2 diabetes mellitus with diabetic peripheral angiopathy without gangrene; E11.42 Type 2 diabetes mellitus with diabetic polyneuropathy; E03.9 Hypothyroidism, unspecified; I25.5 Ischemic cardiomyopathy; I25.2 Old myocardial infarction; I48.0 Paroxysmal atrial fibrillation; G47.33 Obstructive sleep apnea (adult) (pediatric); E78.00 Pure hypercholesterolemia, unspecified; Z95.1 Presence of aortocoronary bypass graft; Z87.891 Personal history of nicotine dependence
CPT/HCPCS: 96365; 96366; G0463; J1642; J2260

== ENCOUNTER → 2024-08-25 | Outpatient (CLI) | payer MEDICARE ==
[2024-08-25] VITALS (11 sets, daily range): BP systolic 89–108; BP diastolic 39–50; PULSE 66–77; RESP 16; O2SAT 99
[2024-08-25] MEDS: MILRINONE 20MG/100ML 100 ML IV ONE ×2 (08:46→08:48)
[2024-08-25] MEDS: LORazepam 2MG/ML-1ML VIAL ONE (10:53)
== END | disposition home or self-care (01) ==
LOC: CHF HDHVI 08:35
PROVIDERS: ATTEND Internal Medicine Cardiovascular Disease
DX: I13.0 Hypertensive heart and chronic kidney disease with heart failure and stage 1 through stage 4 chronic kidney disease, or unspecified chronic kidney disease (principal); E11.22 Type 2 diabetes mellitus with diabetic chronic kidney disease; N18.4 Chronic kidney disease, stage 4 (severe); I50.43 Acute on chronic combined systolic (congestive) and diastolic (congestive) heart failure; I25.5 Ischemic cardiomyopathy; E03.9 Hypothyroidism, unspecified; I25.2 Old myocardial infarction; I48.0 Paroxysmal atrial fibrillation; E78.00 Pure hypercholesterolemia, unspecified; E11.42 Type 2 diabetes mellitus with diabetic polyneuropathy; E11.51 Type 2 diabetes mellitus with diabetic peripheral angiopathy without gangrene; I25.10 Atherosclerotic heart disease of native coronary artery without angina pectoris; Z79.82 Long term (current) use of aspirin; Z79.899 Other long term (current) drug therapy; Z95.810 Presence of automatic (implantable) cardiac defibrillator; Z87.891 Personal history of nicotine dependence; Z95.1 Presence of aortocoronary bypass graft
CPT/HCPCS: 96365; 96366; G0463; J1642; J2260

== ENCOUNTER → 2024-08-27 | Outpatient (CLI) | payer MEDICARE ==
[2024-08-27] VITALS (12 sets, daily range): BP systolic 97–111; BP diastolic 42–52; PULSE 65–75; RESP 16; O2SAT 99
[2024-08-27] MEDS: MILRINONE 20MG/100ML 100 ML IV ONE ×2 (08:48→08:56)
== END | disposition home or self-care (01) ==
LOC: CHF HDHVI 08:39
PROVIDERS: ATTEND Internal Medicine Cardiovascular Disease
DX: I13.0 Hypertensive heart and chronic kidney disease with heart failure and stage 1 through stage 4 chronic kidney disease, or unspecified chronic kidney disease (principal); E11.22 Type 2 diabetes mellitus with diabetic chronic kidney disease; N18.4 Chronic kidney disease, stage 4 (severe); I50.43 Acute on chronic combined systolic (congestive) and diastolic (congestive) heart failure; I25.5 Ischemic cardiomyopathy; E78.00 Pure hypercholesterolemia, unspecified; Z79.899 Other long term (current) drug therapy; Z87.891 Personal history of nicotine dependence; Z95.0 Presence of cardiac pacemaker
CPT/HCPCS: 96365; 96366; G0463; J1642; J2260

== ENCOUNTER → 2024-09-03 | Outpatient (CLI) | payer MEDICARE ==
[2024-09-03] VITALS (11 sets, daily range): BP systolic 90–119; BP diastolic 41–78; PULSE 65–79; RESP 16; O2SAT 97
[2024-09-03] MEDS: BUMETANIDE INJECTION 10 ML ONE (08:50)
[2024-09-03] MEDS: POTASSIUM CHL 10 Meq TABLET PO ONE (08:50)
[2024-09-03] MEDS: MILRINONE 20MG/100ML 100 ML IV ONE ×2 (08:51→09:00)
[2024-09-03] MEDS: MAGNESIUM SULFATE 1GM/100ML 200 ML IV ONE (08:51)
[2024-09-03] MEDS: MAGNESIUM SULFATE 1GM/100ML 100 ML IV SCH (09:25)
[2024-09-03] MEDS: BUMETANIDE 2.5mg/10ml (0.25 mg/ml) INJ IV ONE (11:45)
[2024-09-03] MEDS: POTASSIUM CHL 20 Meq TABLET PO ONE (11:47)
== END | disposition home or self-care (01) ==
LOC: CHF HDHVI 08:37
PROVIDERS: ATTEND Internal Medicine Cardiovascular Disease
DX: I11.0 Hypertensive heart disease with heart failure (principal); I50.43 Acute on chronic combined systolic (congestive) and diastolic (congestive) heart failure; E11.22 Type 2 diabetes mellitus with diabetic chronic kidney disease; I13.0 Hypertensive heart and chronic kidney disease with heart failure and stage 1 through stage 4 chronic kidney disease, or unspecified chronic kidney disease; N18.4 Chronic kidney disease, stage 4 (severe); I25.10 Atherosclerotic heart disease of native coronary artery without angina pectoris; E78.5 Hyperlipidemia, unspecified; E03.9 Hypothyroidism, unspecified; Z87.891 Personal history of nicotine dependence; Z79.899 Other long term (current) drug therapy
CPT/HCPCS: 96365; 96366; 96367; 96375; G0463; J1642; J2260; J3475

== ENCOUNTER → 2024-09-15 | Outpatient (CLI) | payer MEDICARE ==
[2024-09-15] VITALS (11 sets, daily range): BP systolic 101–113; BP diastolic 47–81; PULSE 65–66; RESP 16; O2SAT 97
[2024-09-15] MEDS: MILRINONE 20MG/100ML 100 ML IV ONE ×2 (07:40→08:46)
== END | disposition home or self-care (01) ==
LOC: CHF HDHVI 08:43
PROVIDERS: ATTEND Internal Medicine Cardiovascular Disease
DX: I13.0 Hypertensive heart and chronic kidney disease with heart failure and stage 1 through stage 4 chronic kidney disease, or unspecified chronic kidney disease (principal); E11.22 Type 2 diabetes mellitus with diabetic chronic kidney disease; I50.43 Acute on chronic combined systolic (congestive) and diastolic (congestive) heart failure; N18.4 Chronic kidney disease, stage 4 (severe); I25.10 Atherosclerotic heart disease of native coronary artery without angina pectoris; I25.2 Old myocardial infarction; I48.0 Paroxysmal atrial fibrillation; E11.42 Type 2 diabetes mellitus with diabetic polyneuropathy; E11.51 Type 2 diabetes mellitus with diabetic peripheral angiopathy without gangrene; E78.00 Pure hypercholesterolemia, unspecified; Z95.810 Presence of automatic (implantable) cardiac defibrillator
CPT/HCPCS: 96365; 96366; G0463; J1642; J2260

== ENCOUNTER → 2024-09-17 | Outpatient (CLI) | payer MEDICARE ==
[2024-09-17] VITALS (11 sets, daily range): BP systolic 107–126; BP diastolic 46–62; PULSE 64–79; RESP 16; O2SAT 96
[2024-09-17] MEDS: MILRINONE 20MG/100ML 100 ML IV ONE ×2 (07:35→08:44)
== END | disposition home or self-care (01) ==
LOC: CHF HDHVI 08:33
PROVIDERS: ATTEND Internal Medicine Cardiovascular Disease
DX: I13.0 Hypertensive heart and chronic kidney disease with heart failure and stage 1 through stage 4 chronic kidney disease, or unspecified chronic kidney disease (principal); I50.43 Acute on chronic combined systolic (congestive) and diastolic (congestive) heart failure; N18.4 Chronic kidney disease, stage 4 (severe); I25.10 Atherosclerotic heart disease of native coronary artery without angina pectoris; I25.2 Old myocardial infarction; I48.0 Paroxysmal atrial fibrillation; E78.00 Pure hypercholesterolemia, unspecified; E11.22 Type 2 diabetes mellitus with diabetic chronic kidney disease; E11.42 Type 2 diabetes mellitus with diabetic polyneuropathy; E11.51 Type 2 diabetes mellitus with diabetic peripheral angiopathy without gangrene; M19.90 Unspecified osteoarthritis, unspecified site; G47.33 Obstructive sleep apnea (adult) (pediatric); I25.5 Ischemic cardiomyopathy; E03.9 Hypothyroidism, unspecified; Z79.899 Other long term (current) drug therapy; Z87.891 Personal history of nicotine dependence; Z95.0 Presence of cardiac pacemaker; Z95.1 Presence of aortocoronary bypass graft
CPT/HCPCS: 96365; 96366; G0463; J1642; J2260

== ENCOUNTER → 2024-09-22 | Outpatient (CLI) | payer MEDICARE ==
[2024-09-22] VITALS (11 sets, daily range): BP systolic 106–129; BP diastolic 47–68; PULSE 65–88; RESP 16; O2SAT 97
[2024-09-22] MEDS: MILRINONE 20MG/100ML 100 ML IV ONE ×2 (08:33→08:49)
--- NOTE | 2024-09-22 10:13 | DVH ---
EXAM: XY CHEST TWO VIEWS ROUTINE CLINICAL HISTORY: SOB COMPARISON: XY CHEST TWO VIEWS ROUTINE on DOS: 07/10/24, XY CHEST TWO VIEWS ROUTINE on DOS: 06/18/24, XY CHEST TWO VIEWS ROUTINE on DOS: 01/01/24, XY CHEST TWO VIEWS ROUTINE on DOS: 01/07/23, XY CHEST TWO V IEWS ROUTINE on DOS: 10/11/22 TECHNIQUE: Frontal and lateral view of the chest was obtained FINDINGS: Lines and Tubes: Cardiac pacemaker projects over the right chest wall. Right central venous catheter tip projects over the cavoatrial junction. Lungs: Right basilar opacity. Small right pleural effusion. Cardiomediastinal contours: Unremarkable Atherosclerotic vascular calcifications of the thoracic aort a are noted. Vascular stent projects over the mediastinum. Bones: No acute osseous abnormality. IMPRESSION: Small right pleural effusion and right basilar opacity.
[2024-09-22] MEDS: BUMETANIDE INJECTION 10 ML ONE (12:06)
[2024-09-22] MEDS: POTASSIUM CHL 10 Meq TABLET PO ONE (12:06)
[2024-09-22] MEDS: BUMETANIDE 2.5mg/10ml (0.25 mg/ml) INJ IV ONE (12:09)
[2024-09-22] MEDS: POTASSIUM CHL 20 Meq TABLET PO ONE (13:00)
--- NOTE | 2024-10-02 09:10 | DVHSR ---
APPROVED REPORT EXAM: Two-dimensional and M-mode echocardiogram with Doppler and color Doppler. DIMENSIONS LVDd5.6 (3.8-5.7cm)LA (2D)5.0 (1.9-4.0cm)Aortic Root2.4 (2.0-3.7cm) LVDs4.9 (2.5-4.0cm)LA (MM) (1.9-4.0cm)Aortic Cusp Exc0.7 (1.5-2.0cm) EF (%) 27.1 (55-70%)Rt. Atrium5.0 (1.9-4.0cm)Asc. Aorta cm IVSd0.8 (0.7-1.1cm)RV (D)4.6 (1.8-2.4cm) PWd1.1 (0.7-1.1cm) Mitral Valve MitralMitral Stenosis A wavem/sMV Peak GR.98mmHg E/A ratio0.02D MVAcm2 Aortic Valve Aortic ValveAortic Stenosis V10.96m/Nikos Mean GR.5mmHg V21.44m/Nikos Peak GR.8mmHg Pulmonic Valve V20.54m/s Tricuspid Valve TR Velocity3.59m/s [id number] LEFT VENTRICLE The Ejection Fraction is 25-35%. ATRIA The left atrium is mildly dilated. The right atrium is mildly dilated. MITRAL VALVE Mitral annular calcification is mild. Mitral regurgitation is moderate to severe. PULMONIC VALVE The pulmonic valve is not well visualized. TRICUSPID VALVE The tricuspid valve is grossly normal. There is moderate tricuspid regurgitation. AORTIC VALVE No aortic regurgitation is present. There are no vegetationspresent on this prosthetic aortic valve. GREAT VESSELS The aortic root is normal size. PERICARDIAL EFFUSION There is no pericardial effusion. Conclusion LAE DRAKE SEVERE TR SEVERE MR NL FUNCTIONING AV PROSTHESIS EF <25% LVE
== END | disposition home or self-care (01) ==
LOC: Rad HDHVI 07:59
PROVIDERS: ATTEND Internal Medicine Cardiovascular Disease
DX: I13.0 Hypertensive heart and chronic kidney disease with heart failure and stage 1 through stage 4 chronic kidney disease, or unspecified chronic kidney disease (principal); E11.22 Type 2 diabetes mellitus with diabetic chronic kidney disease; N18.4 Chronic kidney disease, stage 4 (severe); I50.43 Acute on chronic combined systolic (congestive) and diastolic (congestive) heart failure; I08.1 Rheumatic disorders of both mitral and tricuspid valves; J90 Pleural effusion, not elsewhere classified; J98.4 Other disorders of lung; I25.5 Ischemic cardiomyopathy; I48.91 Unspecified atrial fibrillation; G47.30 Sleep apnea, unspecified; E11.40 Type 2 diabetes mellitus with diabetic neuropathy, unspecified; E78.5 Hyperlipidemia, unspecified; E03.9 Hypothyroidism, unspecified
CPT/HCPCS: 71046; 93306; 96365; 96366; 96375; G0463; J1642; J2260

== ENCOUNTER → 2024-09-23 | Outpatient (CLI) | payer MEDICARE ==
[2024-09-23] VITALS (12 sets, daily range): BP systolic 95–106; BP diastolic 41–55; PULSE 68–83; RESP 16; O2SAT 96
[2024-09-23] MEDS: MILRINONE 20MG/100ML 100 ML IV ONE ×2 (08:47→08:52)
== END | disposition home or self-care (01) ==
LOC: CHF HDHVI 08:26
PROVIDERS: ATTEND Internal Medicine Cardiovascular Disease
DX: I13.0 Hypertensive heart and chronic kidney disease with heart failure and stage 1 through stage 4 chronic kidney disease, or unspecified chronic kidney disease (principal); E11.22 Type 2 diabetes mellitus with diabetic chronic kidney disease; N18.4 Chronic kidney disease, stage 4 (severe); I50.43 Acute on chronic combined systolic (congestive) and diastolic (congestive) heart failure; I25.5 Ischemic cardiomyopathy; I48.91 Unspecified atrial fibrillation; G47.30 Sleep apnea, unspecified; E11.40 Type 2 diabetes mellitus with diabetic neuropathy, unspecified; E78.5 Hyperlipidemia, unspecified; E03.9 Hypothyroidism, unspecified; Z79.82 Long term (current) use of aspirin; Z87.891 Personal history of nicotine dependence; Z95.0 Presence of cardiac pacemaker
CPT/HCPCS: 96365; 96366; G0463; J1642; J2260

== ENCOUNTER → 2024-09-25 | Outpatient (CLI) | payer MEDICARE ==
[2024-09-25] VITALS (11 sets, daily range): BP systolic 93–115; BP diastolic 51–62; PULSE 65–90; RESP 16; O2SAT 95
[~2024-09-25] VITALS: Ht 165.1 cm; Wt 61.7 kg
[2024-09-25] MEDS: MILRINONE 20MG/100ML 100 ML IV ONE ×2 (08:54→09:04)
[2024-09-25] MEDS: BACITRACIN TOP OINT 1 UD PKG TOP ONE ×2 (09:07→09:15)
--- NOTE | 2024-09-25 11:32 | DVH ---
EXAM: CT HEAD WITHOUT CONTRAST HISTORY: HEADACHES COMPARISON: CT HEAD WITHOUT CONTRAST on DOS: 05/07/24 TECHNIQUE: Axial images of the head were obtained and reformatted in coronal and sagittal planes. All CT scans at this medical facility are performed using dose modulation techniques as appropriate t o a performed exam including the following: Automated exposure control was utilized; adjustment of th e MA and/or KV according to patient size; and use of iterative reconstruction technique. CT Dose: CTDI volume is 52.75 mGy. Dose-length product is 843.95 mGy*cm FINDINGS: There is no evidence of acute intracranial hemorrhage, mass, mass effect midline shift. There is no h ydrocephalus or extra-axial fluid collection. There are stable chronic infarcts in the right arango radiata and right basal ganglia. There are chronic microvascular ischemic changes in the supratentori al white matter. The visualized paranasal sinuses and mastoid air cells are clear. The calvarium is intact. IMPRESSION: 1. No acute intracranial process. HS:Y
== END | disposition home or self-care (01) ==
LOC: CHF HDHVI 08:53
PROVIDERS: ATTEND Internal Medicine Cardiovascular Disease
DX: I13.0 Hypertensive heart and chronic kidney disease with heart failure and stage 1 through stage 4 chronic kidney disease, or unspecified chronic kidney disease (principal); E11.22 Type 2 diabetes mellitus with diabetic chronic kidney disease; N18.4 Chronic kidney disease, stage 4 (severe); I50.43 Acute on chronic combined systolic (congestive) and diastolic (congestive) heart failure; R51.9 Headache, unspecified; I25.5 Ischemic cardiomyopathy; I48.91 Unspecified atrial fibrillation; G47.30 Sleep apnea, unspecified; E11.40 Type 2 diabetes mellitus with diabetic neuropathy, unspecified; E78.5 Hyperlipidemia, unspecified; E03.9 Hypothyroidism, unspecified; S01.81XD Laceration without foreign body of other part of head, subsequent encounter; Z79.82 Long term (current) use of aspirin; Z87.891 Personal history of nicotine dependence; Z95.0 Presence of cardiac pacemaker; W19.XXXD Unspecified fall, subsequent encounter
CPT/HCPCS: 70450; 96365; 96366; G0463; J1642; J2260

== ENCOUNTER → 2024-09-29 | Outpatient (CLI) | payer MEDICARE ==
[2024-09-29] VITALS (11 sets, daily range): BP systolic 91–111; BP diastolic 40–50; PULSE 65–77; RESP 16; O2SAT 97
[2024-09-29] MEDS: MILRINONE 20MG/100ML 100 ML IV ONE ×2 (08:57→09:18)
== END | disposition home or self-care (01) ==
LOC: CHF HDHVI 08:50
PROVIDERS: ATTEND Internal Medicine Cardiovascular Disease
DX: I13.0 Hypertensive heart and chronic kidney disease with heart failure and stage 1 through stage 4 chronic kidney disease, or unspecified chronic kidney disease (principal); E11.22 Type 2 diabetes mellitus with diabetic chronic kidney disease; N18.4 Chronic kidney disease, stage 4 (severe); I50.43 Acute on chronic combined systolic (congestive) and diastolic (congestive) heart failure; I25.5 Ischemic cardiomyopathy; I48.91 Unspecified atrial fibrillation; G47.30 Sleep apnea, unspecified; E11.40 Type 2 diabetes mellitus with diabetic neuropathy, unspecified; E78.5 Hyperlipidemia, unspecified; E03.9 Hypothyroidism, unspecified; Z79.82 Long term (current) use of aspirin; Z87.891 Personal history of nicotine dependence; Z95.0 Presence of cardiac pacemaker
CPT/HCPCS: 96365; 96366; G0463; J1642; J2260

== ENCOUNTER → 2024-10-02 | Outpatient (CLI) | payer MEDICARE ==
[2024-10-02] VITALS (11 sets, daily range): BP systolic 92–122; BP diastolic 39–64; PULSE 65–74; RESP 16; O2SAT 98
[2024-10-02] MEDS: MILRINONE 20MG/100ML 100 ML IV ONE ×2 (08:45→09:00)
== END | disposition home or self-care (01) ==
LOC: CHF HDHVI 08:10
PROVIDERS: ATTEND Internal Medicine Cardiovascular Disease
DX: I13.0 Hypertensive heart and chronic kidney disease with heart failure and stage 1 through stage 4 chronic kidney disease, or unspecified chronic kidney disease (principal); E11.22 Type 2 diabetes mellitus with diabetic chronic kidney disease; N18.4 Chronic kidney disease, stage 4 (severe); I50.43 Acute on chronic combined systolic (congestive) and diastolic (congestive) heart failure; I25.5 Ischemic cardiomyopathy; I48.91 Unspecified atrial fibrillation; S09.90XD Unspecified injury of head, subsequent encounter; G47.30 Sleep apnea, unspecified; E11.40 Type 2 diabetes mellitus with diabetic neuropathy, unspecified; E78.5 Hyperlipidemia, unspecified; E03.9 Hypothyroidism, unspecified; Z79.82 Long term (current) use of aspirin; Z87.891 Personal history of nicotine dependence; Z95.0 Presence of cardiac pacemaker; X58.XXXD Exposure to other specified factors, subsequent encounter
CPT/HCPCS: 96365; 96366; G0463; J1642; J2260

== ENCOUNTER → 2024-10-06 | Outpatient (CLI) | payer MEDICARE ==
[~2024-10-06] VITALS: Ht 30.5 cm; Wt 57.6 kg
[2024-10-06] VITALS (11 sets, daily range): BP systolic 84–111; BP diastolic 32–51; PULSE 65–68; RESP 16; O2SAT 97
[2024-10-06] MEDS: MILRINONE 20MG/100ML 100 ML IV ONE ×2 (08:39→08:44)
== END | disposition home or self-care (01) ==
LOC: CHF HDHVI 08:24
PROVIDERS: ATTEND Internal Medicine Cardiovascular Disease
DX: I13.0 Hypertensive heart and chronic kidney disease with heart failure and stage 1 through stage 4 chronic kidney disease, or unspecified chronic kidney disease (principal); E11.22 Type 2 diabetes mellitus with diabetic chronic kidney disease; N18.4 Chronic kidney disease, stage 4 (severe); I50.43 Acute on chronic combined systolic (congestive) and diastolic (congestive) heart failure; I25.5 Ischemic cardiomyopathy; I48.91 Unspecified atrial fibrillation; E11.42 Type 2 diabetes mellitus with diabetic polyneuropathy; I25.10 Atherosclerotic heart disease of native coronary artery without angina pectoris; E78.00 Pure hypercholesterolemia, unspecified; M19.90 Unspecified osteoarthritis, unspecified site; I25.2 Old myocardial infarction; G47.33 Obstructive sleep apnea (adult) (pediatric); E03.9 Hypothyroidism, unspecified; Z79.82 Long term (current) use of aspirin; Z87.891 Personal history of nicotine dependence; Z95.0 Presence of cardiac pacemaker; Z95.1 Presence of aortocoronary bypass graft
CPT/HCPCS: 96365; 96366; G0463; J1642; J2260

== ENCOUNTER → 2024-10-08 | Outpatient (CLI) | payer MEDICARE ==
[2024-10-08] VITALS (11 sets, daily range): BP systolic 86–111; BP diastolic 37–48; PULSE 65–67; RESP 16; O2SAT 99
[2024-10-08] MEDS: MILRINONE 20MG/100ML 100 ML IV ONE ×2 (08:43→08:50)
[2024-10-08] MEDS: CYANOCOBALAMIN (B-12) 1000 MCG/1 ML VIAL ONE (08:50)
[2024-10-08] MEDS: CYANOCOBALAMIN (B-12) 1000 MCG/1 ML VIAL IM ONE (08:55)
== END | disposition home or self-care (01) ==
LOC: CHF HDHVI 08:29
PROVIDERS: ATTEND Internal Medicine Cardiovascular Disease
DX: I13.0 Hypertensive heart and chronic kidney disease with heart failure and stage 1 through stage 4 chronic kidney disease, or unspecified chronic kidney disease (principal); I50.43 Acute on chronic combined systolic (congestive) and diastolic (congestive) heart failure; N18.4 Chronic kidney disease, stage 4 (severe); E11.22 Type 2 diabetes mellitus with diabetic chronic kidney disease; E11.42 Type 2 diabetes mellitus with diabetic polyneuropathy; E11.51 Type 2 diabetes mellitus with diabetic peripheral angiopathy without gangrene; E78.5 Hyperlipidemia, unspecified; E03.9 Hypothyroidism, unspecified; I48.91 Unspecified atrial fibrillation; E78.00 Pure hypercholesterolemia, unspecified; I25.10 Atherosclerotic heart disease of native coronary artery without angina pectoris; I25.5 Ischemic cardiomyopathy; I25.2 Old myocardial infarction; M19.90 Unspecified osteoarthritis, unspecified site; I48.0 Paroxysmal atrial fibrillation; Z87.891 Personal history of nicotine dependence; Z95.0 Presence of cardiac pacemaker; Z95.1 Presence of aortocoronary bypass graft
CPT/HCPCS: 96365; 96366; 96372; G0463; J1642; J2260; J3420

== ENCOUNTER → 2024-10-09 | Outpatient (CLI) | payer MEDICARE ==
[2024-10-09] VITALS (9 sets, daily range): BP systolic 79–106; BP diastolic 31–45; PULSE 65–66; RESP 16; O2SAT 98
[2024-10-09] MEDS: MILRINONE 20MG/100ML 100 ML IV ONE ×2 (08:45→08:50)
== END | disposition home or self-care (01) ==
LOC: CHF HDHVI 08:24
PROVIDERS: ATTEND Internal Medicine Cardiovascular Disease
DX: I13.0 Hypertensive heart and chronic kidney disease with heart failure and stage 1 through stage 4 chronic kidney disease, or unspecified chronic kidney disease (principal); I50.43 Acute on chronic combined systolic (congestive) and diastolic (congestive) heart failure; E11.22 Type 2 diabetes mellitus with diabetic chronic kidney disease; N18.4 Chronic kidney disease, stage 4 (severe); E11.42 Type 2 diabetes mellitus with diabetic polyneuropathy; E11.51 Type 2 diabetes mellitus with diabetic peripheral angiopathy without gangrene; M19.90 Unspecified osteoarthritis, unspecified site; I25.10 Atherosclerotic heart disease of native coronary artery without angina pectoris; E78.5 Hyperlipidemia, unspecified; E03.9 Hypothyroidism, unspecified; G47.33 Obstructive sleep apnea (adult) (pediatric); E78.00 Pure hypercholesterolemia, unspecified; I25.5 Ischemic cardiomyopathy; I25.2 Old myocardial infarction; I48.0 Paroxysmal atrial fibrillation; Z87.891 Personal history of nicotine dependence; Z95.1 Presence of aortocoronary bypass graft; Z95.0 Presence of cardiac pacemaker
CPT/HCPCS: 96365; 96366; G0463; J1642; J2260

== ENCOUNTER → 2024-10-13 | Outpatient (CLI) | payer MEDICARE ==
[2024-10-13] VITALS (11 sets, daily range): BP systolic 84–99; BP diastolic 35–51; PULSE 65–69; RESP 16; O2SAT 99
[2024-10-13] MEDS: MILRINONE 20MG/100ML 100 ML IV ONE ×2 (08:40→08:51)
== END | disposition home or self-care (01) ==
LOC: CHF HDHVI 08:27
PROVIDERS: ATTEND Internal Medicine Cardiovascular Disease
DX: I13.0 Hypertensive heart and chronic kidney disease with heart failure and stage 1 through stage 4 chronic kidney disease, or unspecified chronic kidney disease (principal); E11.22 Type 2 diabetes mellitus with diabetic chronic kidney disease; I50.43 Acute on chronic combined systolic (congestive) and diastolic (congestive) heart failure; N18.4 Chronic kidney disease, stage 4 (severe); I25.5 Ischemic cardiomyopathy; I25.10 Atherosclerotic heart disease of native coronary artery without angina pectoris; I25.2 Old myocardial infarction; I48.0 Paroxysmal atrial fibrillation; E11.42 Type 2 diabetes mellitus with diabetic polyneuropathy; E11.51 Type 2 diabetes mellitus with diabetic peripheral angiopathy without gangrene; E78.5 Hyperlipidemia, unspecified; E03.9 Hypothyroidism, unspecified; G47.33 Obstructive sleep apnea (adult) (pediatric); Z87.891 Personal history of nicotine dependence; Z79.899 Other long term (current) drug therapy; Z79.01 Long term (current) use of anticoagulants; Z79.82 Long term (current) use of aspirin; Z95.810 Presence of automatic (implantable) cardiac defibrillator
CPT/HCPCS: 96365; 96366; G0463; J1642; J2260

== ENCOUNTER → 2024-10-15 | Outpatient (CLI) | payer MEDICARE ==
[2024-10-15] VITALS (13 sets, daily range): BP systolic 81–95; BP diastolic 32–46; PULSE 64–88; RESP 16; O2SAT 97
[2024-10-15] MEDS: MILRINONE 20MG/100ML 100 ML IV ONE ×2 (08:40→08:48)
[2024-10-15] MEDS: SODIUM CHLORIDE 0.9% 250 ML IV ONE (10:10)
== END | disposition home or self-care (01) ==
LOC: CHF HDHVI 08:27
PROVIDERS: ATTEND Internal Medicine Cardiovascular Disease
DX: I11.0 Hypertensive heart disease with heart failure (principal); I50.43 Acute on chronic combined systolic (congestive) and diastolic (congestive) heart failure; I25.10 Atherosclerotic heart disease of native coronary artery without angina pectoris; E03.9 Hypothyroidism, unspecified; M19.90 Unspecified osteoarthritis, unspecified site; I73.9 Peripheral vascular disease, unspecified; I13.0 Hypertensive heart and chronic kidney disease with heart failure and stage 1 through stage 4 chronic kidney disease, or unspecified chronic kidney disease; E11.22 Type 2 diabetes mellitus with diabetic chronic kidney disease; N18.4 Chronic kidney disease, stage 4 (severe); Z79.899 Other long term (current) drug therapy; Z87.891 Personal history of nicotine dependence
CPT/HCPCS: 96365; 96366; G0463; J1642; J2260; 96361

== ENCOUNTER → 2024-10-16 | Outpatient (CLI) | payer MEDICARE ==
[2024-10-16] VITALS (9 sets, daily range): BP systolic 98–118; BP diastolic 42–81; PULSE 65–86; RESP 16; O2SAT 98
[2024-10-16] MEDS: MILRINONE 20MG/100ML 100 ML IV ONE ×2 (08:48→08:56)
== END | disposition home or self-care (01) ==
LOC: CHF HDHVI 08:28
PROVIDERS: ATTEND Internal Medicine Cardiovascular Disease
DX: I11.0 Hypertensive heart disease with heart failure (principal); I50.23 Acute on chronic systolic (congestive) heart failure; I13.0 Hypertensive heart and chronic kidney disease with heart failure and stage 1 through stage 4 chronic kidney disease, or unspecified chronic kidney disease; E11.22 Type 2 diabetes mellitus with diabetic chronic kidney disease; N18.4 Chronic kidney disease, stage 4 (severe); M19.90 Unspecified osteoarthritis, unspecified site; I25.2 Old myocardial infarction; E03.9 Hypothyroidism, unspecified; E78.5 Hyperlipidemia, unspecified; Z87.891 Personal history of nicotine dependence
CPT/HCPCS: 96365; 96366; G0463; J1642; J2260

== ENCOUNTER → 2024-10-20 | Outpatient (CLI) | payer MEDICARE ==
[2024-10-20] VITALS (10 sets, daily range): BP systolic 85–105; BP diastolic 34–41; PULSE 65–70; RESP 16; O2SAT 97
[2024-10-20] MEDS: MILRINONE 20MG/100ML 100 ML IV ONE ×2 (08:38→08:46)
== END | disposition home or self-care (01) ==
LOC: CHF HDHVI 08:25
PROVIDERS: ATTEND Internal Medicine Cardiovascular Disease
DX: I13.0 Hypertensive heart and chronic kidney disease with heart failure and stage 1 through stage 4 chronic kidney disease, or unspecified chronic kidney disease (principal); E11.22 Type 2 diabetes mellitus with diabetic chronic kidney disease; I50.43 Acute on chronic combined systolic (congestive) and diastolic (congestive) heart failure; N18.4 Chronic kidney disease, stage 4 (severe); I25.10 Atherosclerotic heart disease of native coronary artery without angina pectoris; I25.5 Ischemic cardiomyopathy; I25.2 Old myocardial infarction; I48.0 Paroxysmal atrial fibrillation; E11.42 Type 2 diabetes mellitus with diabetic polyneuropathy; E11.51 Type 2 diabetes mellitus with diabetic peripheral angiopathy without gangrene; E78.00 Pure hypercholesterolemia, unspecified; Z87.891 Personal history of nicotine dependence; Z95.810 Presence of automatic (implantable) cardiac defibrillator
CPT/HCPCS: 96365; 96366; G0463; J1642; J2260

== ENCOUNTER → 2024-10-22 | Outpatient (CLI) | payer MEDICARE ==
[2024-10-22] VITALS (12 sets, daily range): BP systolic 81–98; BP diastolic 31–43; PULSE 65–68; RESP 16; O2SAT 97
[2024-10-22] MEDS: MILRINONE 20MG/100ML 100 ML IV ONE ×2 (08:43→08:49)
[2024-10-22] MEDS: SODIUM CHLORIDE 0.9% 250 ML IV ONE (10:25)
== END | disposition home or self-care (01) ==
LOC: CHF HDHVI 08:27
PROVIDERS: ATTEND Internal Medicine Cardiovascular Disease
DX: I13.0 Hypertensive heart and chronic kidney disease with heart failure and stage 1 through stage 4 chronic kidney disease, or unspecified chronic kidney disease (principal); I50.43 Acute on chronic combined systolic (congestive) and diastolic (congestive) heart failure; E11.22 Type 2 diabetes mellitus with diabetic chronic kidney disease; N18.4 Chronic kidney disease, stage 4 (severe); E86.0 Dehydration; I95.9 Hypotension, unspecified; E11.42 Type 2 diabetes mellitus with diabetic polyneuropathy; E11.51 Type 2 diabetes mellitus with diabetic peripheral angiopathy without gangrene; I25.5 Ischemic cardiomyopathy; I25.10 Atherosclerotic heart disease of native coronary artery without angina pectoris; E78.00 Pure hypercholesterolemia, unspecified; I25.2 Old myocardial infarction; E03.9 Hypothyroidism, unspecified; M19.90 Unspecified osteoarthritis, unspecified site; I48.0 Paroxysmal atrial fibrillation; G47.33 Obstructive sleep apnea (adult) (pediatric); Z79.82 Long term (current) use of aspirin; Z87.891 Personal history of nicotine dependence; Z95.0 Presence of cardiac pacemaker; Z79.899 Other long term (current) drug therapy; Z95.1 Presence of aortocoronary bypass graft
CPT/HCPCS: 96365; 96366; G0463; J1642; J2260; J7050; 96361

== ENCOUNTER → 2024-10-27 | Outpatient (CLI) | payer MEDICARE ==
[2024-10-27 09:30] VITALS: BP 83/47; PULSE 65; RESP 18; O2SAT 94
[2024-10-27] MEDS: cefTRIAXone 1GM/50ML D5W 50 ML IV ONE ×2 (10:39→10:48)
--- NOTE | 2024-10-27 11:02 | DVH ---
EXAM: XY CHEST TWO VIEWS ROUTINE CLINICAL HISTORY: SOB COMPARISON: XY CHEST TWO VIEWS ROUTINE on DOS: 09/22/24, XY CHEST TWO VIEWS ROUTINE on DOS: 07/10/24, X Y CHEST TWO VIEWS ROUTINE on DOS: 06/18/24, XY CHEST TWO VIEWS ROUTINE on DOS: 01/01/24, XY CHEST TWO V IEWS ROUTINE on DOS: 01/07/23 TECHNIQUE: Frontal and lateral view of the chest was obtained FINDINGS: Lines and Tubes: Right central venous catheter tip projects over the cavoatrial junction. Cardiac pac emaker projects over left chest wall. Lungs: Right basilar opacity. Pleura: Small right pleural effusion. Cardiomediastinal contours: Unremarkable Bones: No acute osseous abnormality. IMPRESSION: Small right pleural effusion.
[2024-10-27] MEDS: SODIUM CHLORIDE 0.9% 250 ML IV ONE (11:19)
[2024-10-27 12:45] VITALS: BP 99/51; PULSE 71; RESP 18; O2SAT 94
== END | disposition home or self-care (01) ==
LOC: Rad HDHVI 10:01
PROVIDERS: ATTEND Internal Medicine Cardiovascular Disease
DX: J06.9 Acute upper respiratory infection, unspecified (principal); E86.0 Dehydration; I13.0 Hypertensive heart and chronic kidney disease with heart failure and stage 1 through stage 4 chronic kidney disease, or unspecified chronic kidney disease; I50.43 Acute on chronic combined systolic (congestive) and diastolic (congestive) heart failure; N18.4 Chronic kidney disease, stage 4 (severe); E11.22 Type 2 diabetes mellitus with diabetic chronic kidney disease; E11.42 Type 2 diabetes mellitus with diabetic polyneuropathy; E11.51 Type 2 diabetes mellitus with diabetic peripheral angiopathy without gangrene; I95.9 Hypotension, unspecified; I25.10 Atherosclerotic heart disease of native coronary artery without angina pectoris; E03.9 Hypothyroidism, unspecified; I25.5 Ischemic cardiomyopathy; G47.33 Obstructive sleep apnea (adult) (pediatric); I25.2 Old myocardial infarction; E78.00 Pure hypercholesterolemia, unspecified; M19.90 Unspecified osteoarthritis, unspecified site; J90 Pleural effusion, not elsewhere classified; I48.0 Paroxysmal atrial fibrillation; Z87.891 Personal history of nicotine dependence; Z95.0 Presence of cardiac pacemaker; Z95.1 Presence of aortocoronary bypass graft; Z79.01 Long term (current) use of anticoagulants; Z79.899 Other long term (current) drug therapy; Z79.82 Long term (current) use of aspirin
CPT/HCPCS: 71046; 96361; 96365; G0463; J0696; J1642; J7050

== ENCOUNTER → 2024-10-29 | Outpatient (CLI) | payer MEDICARE ==
[2024-10-29] VITALS (11 sets, daily range): BP systolic 92–128; BP diastolic 35–51; PULSE 66–86; RESP 16–81; O2SAT 95
[2024-10-29] MEDS: DOBUTamine 1000MCG/ML 250 ML IV ONE ×2 (08:45→08:52)
== END | disposition home or self-care (01) ==
LOC: CHF HDHVI 08:22
PROVIDERS: ATTEND Internal Medicine Cardiovascular Disease
DX: I13.0 Hypertensive heart and chronic kidney disease with heart failure and stage 1 through stage 4 chronic kidney disease, or unspecified chronic kidney disease (principal); I50.43 Acute on chronic combined systolic (congestive) and diastolic (congestive) heart failure; N18.4 Chronic kidney disease, stage 4 (severe); E11.22 Type 2 diabetes mellitus with diabetic chronic kidney disease; E11.42 Type 2 diabetes mellitus with diabetic polyneuropathy; E11.51 Type 2 diabetes mellitus with diabetic peripheral angiopathy without gangrene; E03.9 Hypothyroidism, unspecified; I25.5 Ischemic cardiomyopathy; E78.00 Pure hypercholesterolemia, unspecified; G47.33 Obstructive sleep apnea (adult) (pediatric); I48.0 Paroxysmal atrial fibrillation; I25.10 Atherosclerotic heart disease of native coronary artery without angina pectoris; I25.2 Old myocardial infarction; E86.0 Dehydration; M19.90 Unspecified osteoarthritis, unspecified site; Z79.01 Long term (current) use of anticoagulants; Z79.82 Long term (current) use of aspirin; Z79.899 Other long term (current) drug therapy; Z95.1 Presence of aortocoronary bypass graft; Z95.0 Presence of cardiac pacemaker; Z87.891 Personal history of nicotine dependence
CPT/HCPCS: 96365; 96366; G0463; J1250; J1642

== ENCOUNTER → 2024-11-05 | Outpatient (CLI) | payer MEDICARE ==
[2024-11-05] VITALS (9 sets, daily range): BP systolic 101–122; BP diastolic 36–44; PULSE 66–76; RESP 16; O2SAT 99
[~2024-11-05] MED LIST changes: +ASPI1TAB19 PO
[2024-11-05] MEDS: DOBUTamine 1000MCG/ML 250 ML IV ONE ×2 (08:45→08:51)
== END | disposition home or self-care (01) ==
LOC: CHF HDHVI 08:28
PROVIDERS: ATTEND Internal Medicine Cardiovascular Disease
DX: I13.0 Hypertensive heart and chronic kidney disease with heart failure and stage 1 through stage 4 chronic kidney disease, or unspecified chronic kidney disease (principal); E11.22 Type 2 diabetes mellitus with diabetic chronic kidney disease; I50.43 Acute on chronic combined systolic (congestive) and diastolic (congestive) heart failure; N18.4 Chronic kidney disease, stage 4 (severe); I25.5 Ischemic cardiomyopathy; I25.10 Atherosclerotic heart disease of native coronary artery without angina pectoris; I25.2 Old myocardial infarction; I48.0 Paroxysmal atrial fibrillation; E11.51 Type 2 diabetes mellitus with diabetic peripheral angiopathy without gangrene; E11.42 Type 2 diabetes mellitus with diabetic polyneuropathy; G47.33 Obstructive sleep apnea (adult) (pediatric); E78.00 Pure hypercholesterolemia, unspecified; E03.9 Hypothyroidism, unspecified; Z87.891 Personal history of nicotine dependence; Z79.01 Long term (current) use of anticoagulants; Z79.82 Long term (current) use of aspirin; Z95.810 Presence of automatic (implantable) cardiac defibrillator
CPT/HCPCS: 96365; 96366; G0463; J1250; J1642

== ENCOUNTER → 2024-11-10 | Outpatient (CLI) | payer MEDICARE ==
[2024-11-10] VITALS (9 sets, daily range): BP systolic 93–126; BP diastolic 34–47; PULSE 66–84; RESP 16; O2SAT 99
[2024-11-10] MEDS: DOBUTamine 1000MCG/ML 250 ML IV ONE ×2 (08:38→08:48)
[2024-11-10] MEDS: CYANOCOBALAMIN (B-12) 1000 MCG/1 ML VIAL ONE (08:52)
[2024-11-10] MEDS: CYANOCOBALAMIN (B-12) 1000 MCG/1 ML VIAL IM ONE (11:51)
== END | disposition home or self-care (01) ==
LOC: CHF HDHVI 08:20
PROVIDERS: ATTEND Internal Medicine Cardiovascular Disease
DX: I13.0 Hypertensive heart and chronic kidney disease with heart failure and stage 1 through stage 4 chronic kidney disease, or unspecified chronic kidney disease (principal); E11.22 Type 2 diabetes mellitus with diabetic chronic kidney disease; I50.43 Acute on chronic combined systolic (congestive) and diastolic (congestive) heart failure; N18.4 Chronic kidney disease, stage 4 (severe); D64.9 Anemia, unspecified; I25.10 Atherosclerotic heart disease of native coronary artery without angina pectoris; I25.5 Ischemic cardiomyopathy; I25.2 Old myocardial infarction; I48.0 Paroxysmal atrial fibrillation; E11.51 Type 2 diabetes mellitus with diabetic peripheral angiopathy without gangrene; E11.42 Type 2 diabetes mellitus with diabetic polyneuropathy; G47.33 Obstructive sleep apnea (adult) (pediatric); E78.00 Pure hypercholesterolemia, unspecified; E03.9 Hypothyroidism, unspecified; Z79.899 Other long term (current) drug therapy; Z87.891 Personal history of nicotine dependence; Z95.810 Presence of automatic (implantable) cardiac defibrillator
CPT/HCPCS: 96365; 96366; 96372; G0463; J1250; J3420

== ENCOUNTER 2024-11-12 07:26 | Day surgery (SDC) | payer MEDICARE ==
[~2024-11-12] VITALS: Ht 165.1 cm; Wt 57.2 kg
[~2024-11-12 07:26] MED LIST changes: -ASPI1TAB19 PO
[2024-11-12 09:40] VITALS: BP 100/53; PULSE 65; RESP 15; TEMP 98.3
[2024-11-12 09:56] VITALS: BP 100/52; PULSE 67; RESP 16; TEMP 98.4
[2024-11-12 10:30] VITALS: BP 114/57; PULSE 72; RESP 16; TEMP 98.4
[2024-11-12 11:25] VITALS: BP 122/60; PULSE 66; RESP 16; TEMP 98.2
[2024-11-12 12:31] VITALS: BP 132/71; PULSE 65; RESP 15; TEMP 98.5
[2024-11-12 12:32] VITALS: BP 109/49; PULSE 75; RESP 17; TEMP 98.5
[2024-11-12 13:52] LABS: Basophils # (auto) 0 10 ^3/uL (0-0.2); Basophils % (auto) 1.4 % (0.0-2.0); Eosinophils # (auto) 0 10 ^3/uL (0-0.8); Eosinophils % (auto) 1.6 % (0.0-7.0); Hematocrit 28.8 % (41.0-53.0); Lymphocytes # (auto) 0.9 10 ^3/uL (0.4-5.4); Lymphocytes % (auto) 30.3 % (10.0-50.0); Mean Corpuscular Hgb Conc. 34.6 g/dL (32.0-36.0); Mean Corpuscular Volume 92.5 fL (80.0-100.0); Monocytes # (auto) 0.2 10 ^3/uL (0-1.3); Monocytes % (auto) 6.6 % (0.0-12.0); Neutrophils # (auto) 1.7 10 ^3/uL (1.6-8.6); Neutrophils % (auto) 60.1 % (37.0-80.0); Nucleated Red Blood Cells % 0.1 %; Platelet Count (auto) 150 10^3/uL (140-450); Red Blood Cells 3.11 10^6/uL (4.5-5.90); Red Cell Distribution Width 17.7 % (11.8-14.3); White Blood Cell 2.9 10^3/uL (4.4-10.8)
[2024-11-12] MEDS ORDERED: ASPI1TAB19 PO ×2 (14:04)
== END 2024-11-12 14:25 | disposition home or self-care (01) ==
LOC: CATH 07:26
PROVIDERS: ATTEND Internal Medicine Cardiovascular Disease
DX: D50.9 Iron deficiency anemia, unspecified (principal); I13.0 Hypertensive heart and chronic kidney disease with heart failure and stage 1 through stage 4 chronic kidney disease, or unspecified chronic kidney disease; E11.22 Type 2 diabetes mellitus with diabetic chronic kidney disease; I50.43 Acute on chronic combined systolic (congestive) and diastolic (congestive) heart failure; N18.4 Chronic kidney disease, stage 4 (severe); I25.5 Ischemic cardiomyopathy; I25.10 Atherosclerotic heart disease of native coronary artery without angina pectoris; I25.2 Old myocardial infarction; I48.0 Paroxysmal atrial fibrillation; E11.42 Type 2 diabetes mellitus with diabetic polyneuropathy; E11.51 Type 2 diabetes mellitus with diabetic peripheral angiopathy without gangrene; E78.00 Pure hypercholesterolemia, unspecified; E03.9 Hypothyroidism, unspecified; Z87.891 Personal history of nicotine dependence; Z95.810 Presence of automatic (implantable) cardiac defibrillator; Z86.73 Personal history of transient ischemic attack (TIA), and cerebral infarction without residual deficits; Z79.01 Long term (current) use of anticoagulants; Z79.82 Long term (current) use of aspirin; Z79.899 Other long term (current) drug therapy
CPT/HCPCS: 36415; 36430; 85025; 86850; 86900; 86901; 86920; J7030; P9016

== ENCOUNTER → 2024-11-17 | Outpatient (CLI) | payer MEDICARE ==
[2024-11-17] VITALS (9 sets, daily range): BP systolic 90–130; BP diastolic 34–47; PULSE 68–83; RESP 16; O2SAT 96–97
[~2024-11-17] MED LIST changes: -ASPI-543 PO; +ASPI1TAB19 PO
[2024-11-17] MEDS: DOBUTamine 1000MCG/ML 250 ML IV ONE ×2 (08:59→09:03)
== END | disposition home or self-care (01) ==
LOC: CHF HDHVI 08:27
PROVIDERS: ATTEND Internal Medicine Cardiovascular Disease
DX: I13.0 Hypertensive heart and chronic kidney disease with heart failure and stage 1 through stage 4 chronic kidney disease, or unspecified chronic kidney disease (principal); E11.22 Type 2 diabetes mellitus with diabetic chronic kidney disease; I50.43 Acute on chronic combined systolic (congestive) and diastolic (congestive) heart failure; N18.4 Chronic kidney disease, stage 4 (severe); E11.42 Type 2 diabetes mellitus with diabetic polyneuropathy; E11.51 Type 2 diabetes mellitus with diabetic peripheral angiopathy without gangrene; I25.10 Atherosclerotic heart disease of native coronary artery without angina pectoris; E03.9 Hypothyroidism, unspecified; I25.5 Ischemic cardiomyopathy; G47.33 Obstructive sleep apnea (adult) (pediatric); I25.2 Old myocardial infarction; M19.90 Unspecified osteoarthritis, unspecified site; I48.0 Paroxysmal atrial fibrillation; E78.00 Pure hypercholesterolemia, unspecified; E86.0 Dehydration; Z79.01 Long term (current) use of anticoagulants; Z79.82 Long term (current) use of aspirin; Z87.891 Personal history of nicotine dependence; Z95.0 Presence of cardiac pacemaker; Z95.1 Presence of aortocoronary bypass graft; Z79.899 Other long term (current) drug therapy
CPT/HCPCS: 96365; 96366; G0463; J1250; J1642

== ENCOUNTER → 2024-11-18 | Outpatient (CLI) | payer MEDICARE ==
--- NOTE | 2024-11-18 14:54 | DVH ---
Procedure: CT CHST AB PEL WO CON-NO IV/ORAL 11/18/2024 10:48 AM Indication: WEIGHT LOSS Comparison Study: None Technique: Axial images were obtained and reformatted in coronal and sagittal planes. All CT scans at this medical facility are performed using dose modulation techniques as appropriate to a performed e xam including the following: Automated exposure control was utilized; adjustment of the MA and/or KV according to patient size; and use of iterative reconstruction technique. CT Dose: CTDI volume is 7.1 8 mGy. Dose-length product is 474.05 mGy*cm FINDINGS: Lower neck: Unremarkable. Cardiomediastinal: Median sternotomy wires and mediastinal vascular clips are seen. The heart is mild ly Enlarged. Coronary artery calcification and stenting noted. Calcification of the mitral annulus. An artificial aortic valve is seen. Left upper chest wall pacemaker/ AICD with leads extending to th e right cardiac chambers.. Aorta is normal in caliber. No mediastinal lymphadenopathy. Lungs: Small right pleural effusion with adjacent pulmonary opacities. No suspicious pulmonary nodule or mass identified. Several subcentimeter calcified granulomas are seen that in the superior segment of left lower lobe. No pneumothorax. Hepatobiliary: Cholelithiasis . The gallbladder wall is poorly evaluated due to respiratory motion d egradation. Spleen: Unremarkable. Pancreas: Unremarkable. Adrenal Glands: Unremarkable. tract: The kidneys are normal in size bilaterally without hydronephrosis or nephrolithiasis. The u rinary bladder is unremarkable. GI tract: The stomach is grossly normal in appearance. No evidence of small bowel obstruction. Few co lonic diverticula are seen without evidence of diverticulitis.. The appendix is normal. Lymphatics: No mesenteric, retroperitoneal or periportal lymphadenopathy. 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 Diffuse atherosclerotic calcification of the aortoiliac arteries. 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 Bones/soft tissues: No acute abnormality. Multilevel degenerative changes of the lumbar spine noted. Other: None. IMPRESSION: 1. Small right pleural effusion with mild adjacent pulmonary opacities that may represent compressive atelectasis or pneumonia. Recommend clinical and biochemical correlation. 2. Moderate cardiomegaly with evidence of CHF. 3. Cholelithiasis . Gallbladder wall is poorly evaluated due to respiratory motion degradation. Mitchel mmend correlation with gallbladder ultrasound. 4. Diffuse atherosclerotic calcification of the aortoiliac arteries. Mildly ectatic distal abdominal aorta with maximum diameter of 2.3 cm. Evidence of chronic upper abdominal dissection with a mildly elevated, calcified intimal flap. Further evaluation with MR angiogram could be completed if clinica lly indicated.
== END | disposition home or self-care (01) ==
LOC: Rad HDHVI 10:44
PROVIDERS: ATTEND Internal Medicine Cardiovascular Disease
DX: K80.20 Calculus of gallbladder without cholecystitis without obstruction (principal); K57.30 Diverticulosis of large intestine without perforation or abscess without bleeding; J98.4 Other disorders of lung; J90 Pleural effusion, not elsewhere classified; I11.0 Hypertensive heart disease with heart failure; I50.9 Heart failure, unspecified; I25.10 Atherosclerotic heart disease of native coronary artery without angina pectoris; I70.8 Atherosclerosis of other arteries; I77.811 Abdominal aortic ectasia; M47.816 Spondylosis without myelopathy or radiculopathy, lumbar region; R63.4 Abnormal weight loss
CPT/HCPCS: 71250; 74176

== ENCOUNTER → 2024-11-19 | Outpatient (CLI) | payer MEDICARE ==
[2024-11-19] VITALS (9 sets, daily range): BP systolic 93–124; BP diastolic 39–45; PULSE 65–78; RESP 16; O2SAT 98
[2024-11-19] MEDS: DOBUTamine 1000MCG/ML 250 ML IV ONE ×2 (08:46→08:55)
[2024-11-19] MEDS: IRON SUCROSE 20 mg/ml 10ml VIAL IV ONE (08:46)
[2024-11-19] MEDS: IRON SUCROSE COMPLEX 110 ML IV ONE (09:05)
== END | disposition home or self-care (01) ==
LOC: CHF HDHVI 08:30
PROVIDERS: ATTEND Internal Medicine Cardiovascular Disease
DX: I13.0 Hypertensive heart and chronic kidney disease with heart failure and stage 1 through stage 4 chronic kidney disease, or unspecified chronic kidney disease (principal); E11.22 Type 2 diabetes mellitus with diabetic chronic kidney disease; I50.43 Acute on chronic combined systolic (congestive) and diastolic (congestive) heart failure; N18.4 Chronic kidney disease, stage 4 (severe); D50.9 Iron deficiency anemia, unspecified; E11.42 Type 2 diabetes mellitus with diabetic polyneuropathy; E11.51 Type 2 diabetes mellitus with diabetic peripheral angiopathy without gangrene; I25.10 Atherosclerotic heart disease of native coronary artery without angina pectoris; E86.0 Dehydration; E03.9 Hypothyroidism, unspecified; I25.5 Ischemic cardiomyopathy; E78.2 Mixed hyperlipidemia; G47.33 Obstructive sleep apnea (adult) (pediatric); I25.2 Old myocardial infarction; I48.0 Paroxysmal atrial fibrillation; M19.90 Unspecified osteoarthritis, unspecified site; Z79.01 Long term (current) use of anticoagulants; Z79.82 Long term (current) use of aspirin; Z79.899 Other long term (current) drug therapy; Z87.891 Personal history of nicotine dependence; Z95.0 Presence of cardiac pacemaker; Z95.1 Presence of aortocoronary bypass graft; Z91.011 Allergy to milk products; Z91.013 Allergy to seafood; Z86.73 Personal history of transient ischemic attack (TIA), and cerebral infarction without residual deficits; Z91.041 Radiographic dye allergy status
CPT/HCPCS: 96365; 96366; 96368; G0463; J1250; J1642; J1756

== ENCOUNTER 2024-11-24 08:25 | Outpatient (CLI) | payer MEDICARE ==
[2024-11-24] VITALS (8 sets, daily range): BP systolic 107–124; BP diastolic 37–51; PULSE 65–75; RESP 16; O2SAT 98
[2024-11-24] MEDS: DOBUTamine 1000MCG/ML 250 ML IV ONE ×2 (08:50→08:57)
[2024-11-24] MEDS: IRON SUCROSE 20 mg/ml 10ml VIAL IV ONE (08:57)
[2024-11-24] MEDS: IRON SUCROSE COMPLEX 110 ML IV ONE (09:26)
== END 2024-11-24 17:00 | disposition home or self-care (01) ==
LOC: CHF HDHVI 08:25
PROVIDERS: ATTEND Internal Medicine Cardiovascular Disease
DX: I13.0 Hypertensive heart and chronic kidney disease with heart failure and stage 1 through stage 4 chronic kidney disease, or unspecified chronic kidney disease (principal); E11.22 Type 2 diabetes mellitus with diabetic chronic kidney disease; I50.43 Acute on chronic combined systolic (congestive) and diastolic (congestive) heart failure; N18.4 Chronic kidney disease, stage 4 (severe); D50.9 Iron deficiency anemia, unspecified; I25.5 Ischemic cardiomyopathy; I25.10 Atherosclerotic heart disease of native coronary artery without angina pectoris; I25.2 Old myocardial infarction; I48.0 Paroxysmal atrial fibrillation; E11.51 Type 2 diabetes mellitus with diabetic peripheral angiopathy without gangrene; E11.42 Type 2 diabetes mellitus with diabetic polyneuropathy; E78.00 Pure hypercholesterolemia, unspecified; E03.9 Hypothyroidism, unspecified; Z87.891 Personal history of nicotine dependence; Z79.899 Other long term (current) drug therapy; Z79.01 Long term (current) use of anticoagulants; Z79.82 Long term (current) use of aspirin; Z95.810 Presence of automatic (implantable) cardiac defibrillator
CPT/HCPCS: 96365; 96366; 96368; G0463; J1250; J1642; J1756

== ENCOUNTER 2024-11-26 08:29 | Outpatient (CLI) | payer MEDICARE ==
[2024-11-26] VITALS (9 sets, daily range): BP systolic 111–129; BP diastolic 39–48; PULSE 66–85; RESP 16; O2SAT 98
[2024-11-26] MEDS: DOBUTamine 1000MCG/ML 250 ML IV ONE ×2 (08:35→08:41)
[2024-11-26] MEDS: IRON SUCROSE 20 mg/ml 10ml VIAL IV ONE (08:35)
[2024-11-26] MEDS: IRON SUCROSE COMPLEX 110 ML IV ONE (08:54)
== END 2024-11-26 17:00 | disposition home or self-care (01) ==
LOC: CHF HDHVI 08:29
PROVIDERS: ATTEND Internal Medicine Cardiovascular Disease
DX: I13.0 Hypertensive heart and chronic kidney disease with heart failure and stage 1 through stage 4 chronic kidney disease, or unspecified chronic kidney disease (principal); E11.22 Type 2 diabetes mellitus with diabetic chronic kidney disease; I50.43 Acute on chronic combined systolic (congestive) and diastolic (congestive) heart failure; N18.4 Chronic kidney disease, stage 4 (severe); I25.5 Ischemic cardiomyopathy; D50.9 Iron deficiency anemia, unspecified; E86.0 Dehydration; E03.9 Hypothyroidism, unspecified; I25.2 Old myocardial infarction; E11.51 Type 2 diabetes mellitus with diabetic peripheral angiopathy without gangrene; M19.90 Unspecified osteoarthritis, unspecified site; I25.10 Atherosclerotic heart disease of native coronary artery without angina pectoris; I48.0 Paroxysmal atrial fibrillation; E11.42 Type 2 diabetes mellitus with diabetic polyneuropathy; E78.2 Mixed hyperlipidemia; G47.33 Obstructive sleep apnea (adult) (pediatric); Z95.0 Presence of cardiac pacemaker; Z95.1 Presence of aortocoronary bypass graft; Z87.891 Personal history of nicotine dependence; Z91.013 Allergy to seafood; Z79.82 Long term (current) use of aspirin; Z91.011 Allergy to milk products; Z79.899 Other long term (current) drug therapy; Z79.01 Long term (current) use of anticoagulants; Z86.73 Personal history of transient ischemic attack (TIA), and cerebral infarction without residual deficits
CPT/HCPCS: 96365; 96366; 96368; G0463; J1250; J1642; J1756; 96367

== ENCOUNTER 2024-12-01 08:28 | Outpatient (CLI) | payer MEDICARE ==
[2024-12-01] VITALS (9 sets, daily range): BP systolic 99–134; BP diastolic 41–56; PULSE 68–95; RESP 16; O2SAT 98
[~2024-12-01] VITALS: Ht 30.5 cm; Wt 57.6 kg
[2024-12-01] MEDS: IRON SUCROSE 20 mg/ml 10ml VIAL IV ONE (08:48)
[2024-12-01] MEDS: DOBUTamine 1000MCG/ML 250 ML IV ONE ×2 (08:48→08:52)
[2024-12-01] MEDS: IRON SUCROSE COMPLEX 110 ML IV ONE (09:02)
== END 2024-12-01 17:00 | disposition home or self-care (01) ==
LOC: CHF HDHVI 08:28
PROVIDERS: ATTEND Internal Medicine Cardiovascular Disease
DX: I13.0 Hypertensive heart and chronic kidney disease with heart failure and stage 1 through stage 4 chronic kidney disease, or unspecified chronic kidney disease (principal); E11.22 Type 2 diabetes mellitus with diabetic chronic kidney disease; I50.43 Acute on chronic combined systolic (congestive) and diastolic (congestive) heart failure; N18.4 Chronic kidney disease, stage 4 (severe); D50.9 Iron deficiency anemia, unspecified; E11.42 Type 2 diabetes mellitus with diabetic polyneuropathy; E11.51 Type 2 diabetes mellitus with diabetic peripheral angiopathy without gangrene; E86.0 Dehydration; E03.9 Hypothyroidism, unspecified; I25.10 Atherosclerotic heart disease of native coronary artery without angina pectoris; E78.2 Mixed hyperlipidemia; G47.33 Obstructive sleep apnea (adult) (pediatric); I48.0 Paroxysmal atrial fibrillation; M19.90 Unspecified osteoarthritis, unspecified site; I25.5 Ischemic cardiomyopathy; I25.2 Old myocardial infarction; Z79.01 Long term (current) use of anticoagulants; Z79.82 Long term (current) use of aspirin; Z87.891 Personal history of nicotine dependence; Z95.0 Presence of cardiac pacemaker; Z95.1 Presence of aortocoronary bypass graft; Z91.011 Allergy to milk products; Z91.013 Allergy to seafood; Z91.041 Radiographic dye allergy status; Z79.899 Other long term (current) drug therapy; Z86.73 Personal history of transient ischemic attack (TIA), and cerebral infarction without residual deficits
CPT/HCPCS: 96365; 96366; 96368; G0463; J1250; J1642; J1756; 96367

== ENCOUNTER 2024-12-03 08:27 | Outpatient (CLI) | payer MEDICARE ==
[2024-12-03] VITALS (9 sets, daily range): BP systolic 96–124; BP diastolic 36–53; PULSE 66–82; RESP 16; O2SAT 98
[2024-12-03] MEDS: IRON SUCROSE 20 mg/ml 10ml VIAL IV ONE (08:50)
[2024-12-03] MEDS: DOBUTamine 1000MCG/ML 250 ML IV ONE ×2 (08:50)
[2024-12-03] MEDS: MAGNESIUM SULFATE 1GM/100ML 200 ML IV ONE (08:50)
[2024-12-03] MEDS: IRON SUCROSE COMPLEX 110 ML IV ONE (09:15)
[2024-12-03] MEDS: MAGNESIUM SULFATE 1GM/100ML 100 ML IV ONE (10:12)
== END 2024-12-03 17:00 | disposition home or self-care (01) ==
LOC: CHF HDHVI 08:27
PROVIDERS: ATTEND Internal Medicine Cardiovascular Disease
DX: I13.0 Hypertensive heart and chronic kidney disease with heart failure and stage 1 through stage 4 chronic kidney disease, or unspecified chronic kidney disease (principal); E11.22 Type 2 diabetes mellitus with diabetic chronic kidney disease; I50.43 Acute on chronic combined systolic (congestive) and diastolic (congestive) heart failure; N18.4 Chronic kidney disease, stage 4 (severe); D50.9 Iron deficiency anemia, unspecified; E83.42 Hypomagnesemia; E11.42 Type 2 diabetes mellitus with diabetic polyneuropathy; E11.51 Type 2 diabetes mellitus with diabetic peripheral angiopathy without gangrene; I25.10 Atherosclerotic heart disease of native coronary artery without angina pectoris; E86.0 Dehydration; E03.9 Hypothyroidism, unspecified; I25.5 Ischemic cardiomyopathy; E78.2 Mixed hyperlipidemia; I48.0 Paroxysmal atrial fibrillation; G47.33 Obstructive sleep apnea (adult) (pediatric); I25.2 Old myocardial infarction; M47.816 Spondylosis without myelopathy or radiculopathy, lumbar region; K80.20 Calculus of gallbladder without cholecystitis without obstruction; K57.30 Diverticulosis of large intestine without perforation or abscess without bleeding; Z79.899 Other long term (current) drug therapy; Z87.891 Personal history of nicotine dependence; Z95.0 Presence of cardiac pacemaker; Z95.1 Presence of aortocoronary bypass graft; Z86.73 Personal history of transient ischemic attack (TIA), and cerebral infarction without residual deficits; Z91.041 Radiographic dye allergy status; Z91.013 Allergy to seafood; Z79.01 Long term (current) use of anticoagulants; Z79.82 Long term (current) use of aspirin; Z91.011 Allergy to milk products
CPT/HCPCS: 96365; 96366; 96368; G0463; J1250; J1642; J1756; J3475; 96367

== ENCOUNTER 2024-12-10 07:37 | Day surgery (SDC) | payer MEDICARE ==
[~2024-12-10] VITALS: Ht 165.1 cm; Wt 58.1 kg
[2024-12-10] VITALS (13 sets, daily range): BP systolic 90–104; BP diastolic 42–64; PULSE 65–74; RESP 11–18; TEMP 97.7–98.6
[2024-12-10] MEDS: HEPARIN 1,000 UNITS/ml 1ML VIAL IV ONE (11:35)
[2024-12-10] MEDS: HEPARIN 1,000 UNITS/ml 1ML VIAL ONE (11:37)
== END 2024-12-10 12:00 | disposition home or self-care (01) ==
LOC: CATH 07:37
PROVIDERS: ATTEND Internal Medicine Cardiovascular Disease
DX: D64.9 Anemia, unspecified (principal); I13.0 Hypertensive heart and chronic kidney disease with heart failure and stage 1 through stage 4 chronic kidney disease, or unspecified chronic kidney disease; E11.22 Type 2 diabetes mellitus with diabetic chronic kidney disease; I50.43 Acute on chronic combined systolic (congestive) and diastolic (congestive) heart failure; N18.4 Chronic kidney disease, stage 4 (severe); I25.5 Ischemic cardiomyopathy; I25.10 Atherosclerotic heart disease of native coronary artery without angina pectoris; I25.2 Old myocardial infarction; I48.0 Paroxysmal atrial fibrillation; E11.42 Type 2 diabetes mellitus with diabetic polyneuropathy; E11.51 Type 2 diabetes mellitus with diabetic peripheral angiopathy without gangrene; E78.00 Pure hypercholesterolemia, unspecified; D50.9 Iron deficiency anemia, unspecified; E03.9 Hypothyroidism, unspecified; Z87.891 Personal history of nicotine dependence; Z95.810 Presence of automatic (implantable) cardiac defibrillator; Z86.73 Personal history of transient ischemic attack (TIA), and cerebral infarction without residual deficits; Z79.01 Long term (current) use of anticoagulants; Z79.82 Long term (current) use of aspirin; Z79.899 Other long term (current) drug therapy
CPT/HCPCS: 36430; 86850; 86900; 86901; 86920; J1644; J7030; P9016

== ENCOUNTER 2024-12-15 08:25 | Outpatient (CLI) | payer MEDICARE ==
[2024-12-15] VITALS (9 sets, daily range): BP systolic 107–130; BP diastolic 41–54; PULSE 72–88; RESP 16; O2SAT 97
[~2024-12-15 08:25] MED LIST changes: +ASPI-543 PO
[2024-12-15] MEDS: IRON SUCROSE 20 mg/ml 10ml VIAL IV ONE (08:46)
[2024-12-15] MEDS: DOBUTamine 1000MCG/ML 250 ML IV ONE ×2 (08:46→08:54)
[2024-12-15] MEDS: IRON SUCROSE COMPLEX 110 ML IV ONE (09:20)
[2024-12-15] MEDS: MAGNESIUM SULFATE 1GM/100ML 100 ML IV ONE ×2 (10:20→10:22)
== END 2024-12-15 17:00 | disposition home or self-care (01) ==
LOC: CHF HDHVI 08:25
PROVIDERS: ATTEND Internal Medicine Cardiovascular Disease
DX: I13.0 Hypertensive heart and chronic kidney disease with heart failure and stage 1 through stage 4 chronic kidney disease, or unspecified chronic kidney disease (principal); E11.22 Type 2 diabetes mellitus with diabetic chronic kidney disease; I50.43 Acute on chronic combined systolic (congestive) and diastolic (congestive) heart failure; N18.4 Chronic kidney disease, stage 4 (severe); D50.9 Iron deficiency anemia, unspecified; E83.42 Hypomagnesemia; E11.42 Type 2 diabetes mellitus with diabetic polyneuropathy; E11.51 Type 2 diabetes mellitus with diabetic peripheral angiopathy without gangrene; I25.10 Atherosclerotic heart disease of native coronary artery without angina pectoris; E78.2 Mixed hyperlipidemia; E03.9 Hypothyroidism, unspecified; I25.5 Ischemic cardiomyopathy; I25.2 Old myocardial infarction; I48.0 Paroxysmal atrial fibrillation; E86.0 Dehydration; G47.33 Obstructive sleep apnea (adult) (pediatric); Z79.01 Long term (current) use of anticoagulants; Z79.82 Long term (current) use of aspirin; Z79.899 Other long term (current) drug therapy; Z87.891 Personal history of nicotine dependence; Z91.011 Allergy to milk products; Z91.013 Allergy to seafood; Z95.0 Presence of cardiac pacemaker; Z95.1 Presence of aortocoronary bypass graft; Z86.73 Personal history of transient ischemic attack (TIA), and cerebral infarction without residual deficits; M19.90 Unspecified osteoarthritis, unspecified site; Z91.041 Radiographic dye allergy status; Z87.440 Personal history of urinary (tract) infections
CPT/HCPCS: 96365; 96366; 96368; G0463; J1250; J1642; J1756; J3475; 96367

== ENCOUNTER 2024-12-29 08:23 | Outpatient (CLI) | payer MEDICARE ==
[2024-12-29] VITALS (9 sets, daily range): BP systolic 104–137; BP diastolic 38–52; PULSE 67–91; RESP 16; O2SAT 98–99
[~2024-12-29 08:23] MED LIST changes: -ASPI-543 PO
[2024-12-29] MEDS: DOBUTamine 1000MCG/ML 250 ML IV ONE ×2 (08:48→08:55)
== END 2024-12-29 17:00 | disposition home or self-care (01) ==
LOC: CHF HDHVI 08:23
PROVIDERS: ATTEND Internal Medicine Cardiovascular Disease
DX: I50.43 Acute on chronic combined systolic (congestive) and diastolic (congestive) heart failure (principal); I13.0 Hypertensive heart and chronic kidney disease with heart failure and stage 1 through stage 4 chronic kidney disease, or unspecified chronic kidney disease; E11.22 Type 2 diabetes mellitus with diabetic chronic kidney disease; N18.4 Chronic kidney disease, stage 4 (severe); I25.5 Ischemic cardiomyopathy; I25.10 Atherosclerotic heart disease of native coronary artery without angina pectoris; I25.2 Old myocardial infarction; I48.0 Paroxysmal atrial fibrillation; E11.51 Type 2 diabetes mellitus with diabetic peripheral angiopathy without gangrene; E11.42 Type 2 diabetes mellitus with diabetic polyneuropathy; E78.00 Pure hypercholesterolemia, unspecified; E03.9 Hypothyroidism, unspecified; Z79.01 Long term (current) use of anticoagulants; Z79.82 Long term (current) use of aspirin; Z79.899 Other long term (current) drug therapy; Z87.891 Personal history of nicotine dependence; Z95.810 Presence of automatic (implantable) cardiac defibrillator; Z86.73 Personal history of transient ischemic attack (TIA), and cerebral infarction without residual deficits
CPT/HCPCS: 96365; 96366; G0463; J1250; J1642

== ENCOUNTER 2024-12-30 08:28 | Outpatient (CLI) | payer MEDICARE ==
[2024-12-30] VITALS (9 sets, daily range): BP systolic 91–124; BP diastolic 39–67; PULSE 60–79; RESP 16; O2SAT 97
[2024-12-30] MEDS: DOBUTamine 1000MCG/ML 250 ML IV ONE ×2 (08:48→08:52)
== END 2024-12-30 17:00 | disposition home or self-care (01) ==
LOC: CHF HDHVI 08:28
PROVIDERS: ATTEND Internal Medicine Cardiovascular Disease
DX: I13.0 Hypertensive heart and chronic kidney disease with heart failure and stage 1 through stage 4 chronic kidney disease, or unspecified chronic kidney disease (principal); E11.22 Type 2 diabetes mellitus with diabetic chronic kidney disease; I50.43 Acute on chronic combined systolic (congestive) and diastolic (congestive) heart failure; N18.4 Chronic kidney disease, stage 4 (severe); I25.10 Atherosclerotic heart disease of native coronary artery without angina pectoris; I25.5 Ischemic cardiomyopathy; I25.2 Old myocardial infarction; I48.0 Paroxysmal atrial fibrillation; E11.51 Type 2 diabetes mellitus with diabetic peripheral angiopathy without gangrene; E11.42 Type 2 diabetes mellitus with diabetic polyneuropathy; E78.00 Pure hypercholesterolemia, unspecified; E03.9 Hypothyroidism, unspecified; Z79.01 Long term (current) use of anticoagulants; Z79.82 Long term (current) use of aspirin; Z87.891 Personal history of nicotine dependence; Z95.810 Presence of automatic (implantable) cardiac defibrillator; Z86.73 Personal history of transient ischemic attack (TIA), and cerebral infarction without residual deficits
CPT/HCPCS: 96365; 96366; G0463; J1250; J1642

== ENCOUNTER 2025-01-12 08:27 | Outpatient (CLI) | payer MEDICARE ==
[2025-01-12] VITALS (9 sets, daily range): BP systolic 104–114; BP diastolic 36–42; PULSE 68–77; RESP 16; O2SAT 97
[2025-01-12] MEDS: DOBUTamine 1000MCG/ML 250 ML IV ONE ×2 (08:48→08:51)
== END 2025-01-12 17:00 | disposition home or self-care (01) ==
LOC: CHF HDHVI 08:27
PROVIDERS: ATTEND Internal Medicine Cardiovascular Disease
DX: I13.0 Hypertensive heart and chronic kidney disease with heart failure and stage 1 through stage 4 chronic kidney disease, or unspecified chronic kidney disease (principal); E11.22 Type 2 diabetes mellitus with diabetic chronic kidney disease; I50.43 Acute on chronic combined systolic (congestive) and diastolic (congestive) heart failure; N18.4 Chronic kidney disease, stage 4 (severe); I25.5 Ischemic cardiomyopathy; I25.10 Atherosclerotic heart disease of native coronary artery without angina pectoris; I25.2 Old myocardial infarction; I48.0 Paroxysmal atrial fibrillation; E11.51 Type 2 diabetes mellitus with diabetic peripheral angiopathy without gangrene; E11.42 Type 2 diabetes mellitus with diabetic polyneuropathy; E78.00 Pure hypercholesterolemia, unspecified; E03.9 Hypothyroidism, unspecified; G47.33 Obstructive sleep apnea (adult) (pediatric); Z79.01 Long term (current) use of anticoagulants; Z79.84 Long term (current) use of oral hypoglycemic drugs; Z79.899 Other long term (current) drug therapy; Z87.891 Personal history of nicotine dependence; Z95.810 Presence of automatic (implantable) cardiac defibrillator; Z86.73 Personal history of transient ischemic attack (TIA), and cerebral infarction without residual deficits
CPT/HCPCS: 96365; 96366; G0463; J1250; J1642

== ENCOUNTER 2025-01-14 08:26 | Outpatient (CLI) | payer MEDICARE ==
[2025-01-14] VITALS (9 sets, daily range): BP systolic 90–131; BP diastolic 38–50; PULSE 62–73; RESP 16; O2SAT 98
[2025-01-14] MEDS: DOBUTamine 1000MCG/ML 250 ML IV ONE ×2 (08:51→08:55)
[2025-01-14] MEDS: CYANOCOBALAMIN (B-12) 1000 MCG/1 ML VIAL ONE (08:51)
[2025-01-14] MEDS: CYANOCOBALAMIN (B-12) 1000 MCG/1 ML VIAL IM ONE (12:03)
== END 2025-01-14 17:00 | disposition home or self-care (01) ==
LOC: CHF HDHVI 08:26
PROVIDERS: ATTEND Internal Medicine Cardiovascular Disease
DX: I13.0 Hypertensive heart and chronic kidney disease with heart failure and stage 1 through stage 4 chronic kidney disease, or unspecified chronic kidney disease (principal); E11.22 Type 2 diabetes mellitus with diabetic chronic kidney disease; I50.43 Acute on chronic combined systolic (congestive) and diastolic (congestive) heart failure; N18.4 Chronic kidney disease, stage 4 (severe); D64.9 Anemia, unspecified; E11.42 Type 2 diabetes mellitus with diabetic polyneuropathy; E11.51 Type 2 diabetes mellitus with diabetic peripheral angiopathy without gangrene; I25.10 Atherosclerotic heart disease of native coronary artery without angina pectoris; E03.9 Hypothyroidism, unspecified; I25.5 Ischemic cardiomyopathy; I25.2 Old myocardial infarction; I48.0 Paroxysmal atrial fibrillation; M19.90 Unspecified osteoarthritis, unspecified site; E78.2 Mixed hyperlipidemia; G47.33 Obstructive sleep apnea (adult) (pediatric); K80.20 Calculus of gallbladder without cholecystitis without obstruction; K57.30 Diverticulosis of large intestine without perforation or abscess without bleeding; M47.816 Spondylosis without myelopathy or radiculopathy, lumbar region; Z95.0 Presence of cardiac pacemaker; Z95.1 Presence of aortocoronary bypass graft; Z87.440 Personal history of urinary (tract) infections; Z91.041 Radiographic dye allergy status; Z91.011 Allergy to milk products; Z91.013 Allergy to seafood; Z79.01 Long term (current) use of anticoagulants; Z79.899 Other long term (current) drug therapy; Z86.73 Personal history of transient ischemic attack (TIA), and cerebral infarction without residual deficits; Z79.82 Long term (current) use of aspirin; Z87.891 Personal history of nicotine dependence; Z79.84 Long term (current) use of oral hypoglycemic drugs
CPT/HCPCS: 96365; 96366; 96372; G0463; J1250; J1642; J3420

== ENCOUNTER 2025-01-19 08:27 | Outpatient (CLI) | payer MEDICARE ==
[2025-01-19] VITALS (9 sets, daily range): BP systolic 93–120; BP diastolic 31–46; PULSE 64–72; RESP 16; O2SAT 97
[2025-01-19] MEDS: DOBUTamine 1000MCG/ML 250 ML IV ONE ×2 (08:49→09:01)
== END 2025-01-19 17:00 | disposition home or self-care (01) ==
LOC: CHF HDHVI 08:27
PROVIDERS: ATTEND Internal Medicine Cardiovascular Disease
DX: I13.0 Hypertensive heart and chronic kidney disease with heart failure and stage 1 through stage 4 chronic kidney disease, or unspecified chronic kidney disease (principal); E11.22 Type 2 diabetes mellitus with diabetic chronic kidney disease; I50.43 Acute on chronic combined systolic (congestive) and diastolic (congestive) heart failure; N18.4 Chronic kidney disease, stage 4 (severe); I25.5 Ischemic cardiomyopathy; I25.10 Atherosclerotic heart disease of native coronary artery without angina pectoris; I25.2 Old myocardial infarction; I48.0 Paroxysmal atrial fibrillation; E11.51 Type 2 diabetes mellitus with diabetic peripheral angiopathy without gangrene; E11.42 Type 2 diabetes mellitus with diabetic polyneuropathy; E78.00 Pure hypercholesterolemia, unspecified; E03.9 Hypothyroidism, unspecified; G47.33 Obstructive sleep apnea (adult) (pediatric); Z79.01 Long term (current) use of anticoagulants; Z79.82 Long term (current) use of aspirin; Z79.84 Long term (current) use of oral hypoglycemic drugs; Z87.891 Personal history of nicotine dependence; Z95.810 Presence of automatic (implantable) cardiac defibrillator; Z86.73 Personal history of transient ischemic attack (TIA), and cerebral infarction without residual deficits
CPT/HCPCS: 96365; 96366; G0463; J1250; J1642

== ENCOUNTER 2025-01-21 08:32 | Outpatient (CLI) | payer MEDICARE ==
[2025-01-21] VITALS (9 sets, daily range): BP systolic 92–126; BP diastolic 38–47; PULSE 69–83; RESP 16; O2SAT 98
[2025-01-21] MEDS: DOBUTamine 1000MCG/ML 250 ML IV ONE ×2 (08:51→08:54)
== END 2025-01-21 17:00 | disposition home or self-care (01) ==
LOC: CHF HDHVI 08:32
PROVIDERS: ATTEND Internal Medicine Cardiovascular Disease
DX: I13.0 Hypertensive heart and chronic kidney disease with heart failure and stage 1 through stage 4 chronic kidney disease, or unspecified chronic kidney disease (principal); E11.22 Type 2 diabetes mellitus with diabetic chronic kidney disease; I50.43 Acute on chronic combined systolic (congestive) and diastolic (congestive) heart failure; N18.4 Chronic kidney disease, stage 4 (severe); I25.5 Ischemic cardiomyopathy; I25.10 Atherosclerotic heart disease of native coronary artery without angina pectoris; I25.2 Old myocardial infarction; I48.0 Paroxysmal atrial fibrillation; E11.51 Type 2 diabetes mellitus with diabetic peripheral angiopathy without gangrene; E11.42 Type 2 diabetes mellitus with diabetic polyneuropathy; E78.00 Pure hypercholesterolemia, unspecified; E03.9 Hypothyroidism, unspecified; Z79.01 Long term (current) use of anticoagulants; Z79.82 Long term (current) use of aspirin; Z79.84 Long term (current) use of oral hypoglycemic drugs; Z79.899 Other long term (current) drug therapy; Z87.891 Personal history of nicotine dependence; Z95.810 Presence of automatic (implantable) cardiac defibrillator; Z86.73 Personal history of transient ischemic attack (TIA), and cerebral infarction without residual deficits
CPT/HCPCS: 96365; 96366; G0463; J1250; J1642

== ENCOUNTER 2025-01-26 08:30 | Outpatient (CLI) | payer MEDICARE ==
[2025-01-26] VITALS (9 sets, daily range): BP systolic 92–126; BP diastolic 36–51; PULSE 71–88; RESP 16; O2SAT 99
[2025-01-26] MEDS: DOBUTamine 1000MCG/ML 250 ML IV ONE ×2 (08:46→08:49)
== END 2025-01-26 17:00 | disposition home or self-care (01) ==
LOC: CHF HDHVI 08:30
PROVIDERS: ATTEND Internal Medicine Cardiovascular Disease
DX: I13.0 Hypertensive heart and chronic kidney disease with heart failure and stage 1 through stage 4 chronic kidney disease, or unspecified chronic kidney disease (principal); E11.22 Type 2 diabetes mellitus with diabetic chronic kidney disease; N18.4 Chronic kidney disease, stage 4 (severe); I50.43 Acute on chronic combined systolic (congestive) and diastolic (congestive) heart failure; I25.10 Atherosclerotic heart disease of native coronary artery without angina pectoris; E03.9 Hypothyroidism, unspecified; I25.2 Old myocardial infarction; I48.0 Paroxysmal atrial fibrillation; E11.42 Type 2 diabetes mellitus with diabetic polyneuropathy; E11.51 Type 2 diabetes mellitus with diabetic peripheral angiopathy without gangrene; G47.33 Obstructive sleep apnea (adult) (pediatric); E78.2 Mixed hyperlipidemia; Z91.041 Radiographic dye allergy status; Z91.011 Allergy to milk products; Z91.013 Allergy to seafood; Z79.01 Long term (current) use of anticoagulants; Z79.84 Long term (current) use of oral hypoglycemic drugs; Z79.82 Long term (current) use of aspirin; Z79.899 Other long term (current) drug therapy; Z87.891 Personal history of nicotine dependence; Z95.810 Presence of automatic (implantable) cardiac defibrillator; Z86.73 Personal history of transient ischemic attack (TIA), and cerebral infarction without residual deficits
CPT/HCPCS: 96365; 96366; G0463; J1250; J1642

== ENCOUNTER 2025-01-28 08:29 | Outpatient (CLI) | payer MEDICARE ==
[2025-01-28] VITALS (8 sets, daily range): BP systolic 92–124; BP diastolic 37–53; PULSE 68–88; RESP 16; O2SAT 98
[2025-01-28] MEDS: DOBUTamine 1000MCG/ML 250 ML IV ONE ×2 (08:45→08:49)
== END 2025-01-28 17:00 | disposition home or self-care (01) ==
LOC: CHF HDHVI 08:29
PROVIDERS: ATTEND Internal Medicine Cardiovascular Disease
DX: I13.0 Hypertensive heart and chronic kidney disease with heart failure and stage 1 through stage 4 chronic kidney disease, or unspecified chronic kidney disease (principal); E11.22 Type 2 diabetes mellitus with diabetic chronic kidney disease; I50.43 Acute on chronic combined systolic (congestive) and diastolic (congestive) heart failure; N18.4 Chronic kidney disease, stage 4 (severe); E11.42 Type 2 diabetes mellitus with diabetic polyneuropathy; E11.51 Type 2 diabetes mellitus with diabetic peripheral angiopathy without gangrene; I25.10 Atherosclerotic heart disease of native coronary artery without angina pectoris; E03.9 Hypothyroidism, unspecified; E78.2 Mixed hyperlipidemia; G47.33 Obstructive sleep apnea (adult) (pediatric); I25.2 Old myocardial infarction; I48.0 Paroxysmal atrial fibrillation; I25.5 Ischemic cardiomyopathy; E78.00 Pure hypercholesterolemia, unspecified; M19.90 Unspecified osteoarthritis, unspecified site; Z87.440 Personal history of urinary (tract) infections; Z95.0 Presence of cardiac pacemaker; Z79.84 Long term (current) use of oral hypoglycemic drugs; Z79.899 Other long term (current) drug therapy; Z95.1 Presence of aortocoronary bypass graft; Z79.01 Long term (current) use of anticoagulants; Z87.891 Personal history of nicotine dependence; Z86.73 Personal history of transient ischemic attack (TIA), and cerebral infarction without residual deficits; Z79.82 Long term (current) use of aspirin; Z91.041 Radiographic dye allergy status; Z91.011 Allergy to milk products; Z91.013 Allergy to seafood
CPT/HCPCS: 96365; 96366; G0463; J1250; J1642

== ENCOUNTER 2025-02-02 08:32 | Outpatient (CLI) | payer MEDICARE ==
[~2025-02-02] VITALS: Ht 30.5 cm; Wt 0.5 kg
[2025-02-02] VITALS (9 sets, daily range): BP systolic 99–129; BP diastolic 40–50; PULSE 75–111; RESP 16–22; TEMP 101.7; O2SAT 98–100
[2025-02-02] MEDS: DOBUTamine 1000MCG/ML 250 ML IV ONE ×2 (08:52→09:12)
[2025-02-02] MEDS: MEROPENEM 1GM IVPB 50 ML IV ONE ×2 (12:58→13:41)
[2025-02-02] MEDS: cefTRIAXone 1GM/50ML D5W 50 ML IV ONE (13:02)
[2025-02-02] MEDS: MEROPENEM 1GM IVPB 100 ML IV ONE (13:03)
[2025-02-02] MEDS: ACETAMINOPHEN 500 MG TAB or CAP PO ONE ×2 (15:10)
--- NOTE | 2025-02-02 15:32 | DVH ---
CHEST RADIOGRAPH Indication: SOB Technique: Frontal and lateral view of the chest was obtained Comparison: XY CHEST TWO VIEWS ROUTINE on DOS: 12/22/24, XY CHEST TWO VIEWS ROUTINE on DOS: 10/27/24, X Y CHEST TWO VIEWS ROUTINE on DOS: 09/22/24, XY CHEST TWO VIEWS ROUTINE on DOS: 07/10/24, XY CHEST TWO V IEWS ROUTINE on DOS: 06/18/24 FINDINGS: Lines and Tubes: Median sternotomy. Right chest port in satisfactory position. Left chest AICD. Lungs: Congestion Pleura: Small right pleural effusion No pneumothorax. Cardiomediastinal contours: Unremarkable Bones: Unremarkable IMPRESSION: Small right pleural effusion and mild congestion.
== END 2025-02-02 17:00 | disposition home or self-care (01) ==
LOC: CHF HDHVI 08:32 → Rad HDHVI 17:00
PROVIDERS: ATTEND Internal Medicine Cardiovascular Disease
DX: I13.0 Hypertensive heart and chronic kidney disease with heart failure and stage 1 through stage 4 chronic kidney disease, or unspecified chronic kidney disease (principal); E11.22 Type 2 diabetes mellitus with diabetic chronic kidney disease; I50.43 Acute on chronic combined systolic (congestive) and diastolic (congestive) heart failure; N18.4 Chronic kidney disease, stage 4 (severe); E11.42 Type 2 diabetes mellitus with diabetic polyneuropathy; E11.51 Type 2 diabetes mellitus with diabetic peripheral angiopathy without gangrene; I25.10 Atherosclerotic heart disease of native coronary artery without angina pectoris; E03.9 Hypothyroidism, unspecified; I25.5 Ischemic cardiomyopathy; I48.0 Paroxysmal atrial fibrillation; I25.2 Old myocardial infarction; E78.2 Mixed hyperlipidemia; J90 Pleural effusion, not elsewhere classified; M19.90 Unspecified osteoarthritis, unspecified site; G47.33 Obstructive sleep apnea (adult) (pediatric); B99.9 Unspecified infectious disease; R00.0 Tachycardia, unspecified; R07.9 Chest pain, unspecified; R09.89 Other specified symptoms and signs involving the circulatory and respiratory systems; Z79.01 Long term (current) use of anticoagulants; Z79.82 Long term (current) use of aspirin; Z79.84 Long term (current) use of oral hypoglycemic drugs; Z91.011 Allergy to milk products; Z91.013 Allergy to seafood; Z87.891 Personal history of nicotine dependence; Z95.0 Presence of cardiac pacemaker; Z95.1 Presence of aortocoronary bypass graft; Z86.73 Personal history of transient ischemic attack (TIA), and cerebral infarction without residual deficits; Z87.440 Personal history of urinary (tract) infections
CPT/HCPCS: 71046; 93005; 96365; 96366; 96367; G0463; J0696; J1250; J1642; J2185

== ENCOUNTER 2025-02-09 08:32 | Outpatient (CLI) | payer MEDICARE ==
[2025-02-09] VITALS (9 sets, daily range): BP systolic 95–132; BP diastolic 46–57; PULSE 80–109; RESP 16–18; O2SAT 97
[2025-02-09] MEDS: DOBUTamine 1000MCG/ML 250 ML IV ONE ×2 (08:44→09:10)
[2025-02-09] MEDS: BACITRACIN TOP OINT 1 UD PKG TOP ONE ×2 (09:09→12:17)
== END 2025-02-09 17:00 | disposition home or self-care (01) ==
LOC: CHF HDHVI 08:32
PROVIDERS: ATTEND Internal Medicine Cardiovascular Disease
DX: I13.0 Hypertensive heart and chronic kidney disease with heart failure and stage 1 through stage 4 chronic kidney disease, or unspecified chronic kidney disease (principal); E11.22 Type 2 diabetes mellitus with diabetic chronic kidney disease; I50.43 Acute on chronic combined systolic (congestive) and diastolic (congestive) heart failure; N18.4 Chronic kidney disease, stage 4 (severe); I25.5 Ischemic cardiomyopathy; I25.10 Atherosclerotic heart disease of native coronary artery without angina pectoris; I25.2 Old myocardial infarction; I48.0 Paroxysmal atrial fibrillation; E11.51 Type 2 diabetes mellitus with diabetic peripheral angiopathy without gangrene; E11.42 Type 2 diabetes mellitus with diabetic polyneuropathy; E03.9 Hypothyroidism, unspecified; E78.00 Pure hypercholesterolemia, unspecified; G47.33 Obstructive sleep apnea (adult) (pediatric); M19.90 Unspecified osteoarthritis, unspecified site; Z79.01 Long term (current) use of anticoagulants; Z79.82 Long term (current) use of aspirin; Z79.84 Long term (current) use of oral hypoglycemic drugs; Z87.891 Personal history of nicotine dependence; Z95.810 Presence of automatic (implantable) cardiac defibrillator; Z86.73 Personal history of transient ischemic attack (TIA), and cerebral infarction without residual deficits
CPT/HCPCS: 96365; 96366; G0463; J1250; J1642

== ENCOUNTER 2025-02-11 08:27 | Outpatient (CLI) | payer MEDICARE ==
[2025-02-11] VITALS (10 sets, daily range): BP systolic 81–124; BP diastolic 42–56; PULSE 65–101; RESP 16; O2SAT 96
[2025-02-11] MEDS: DOBUTamine 1000MCG/ML 250 ML IV ONE ×2 (08:57→09:45)
[2025-02-11] MEDS: SODIUM CHLORIDE 0.9% 250 ML IV ONE (09:00)
== END 2025-02-11 17:00 | disposition home or self-care (01) ==
LOC: CHF HDHVI 08:27
PROVIDERS: ATTEND Internal Medicine Cardiovascular Disease
DX: I13.0 Hypertensive heart and chronic kidney disease with heart failure and stage 1 through stage 4 chronic kidney disease, or unspecified chronic kidney disease (principal); E11.22 Type 2 diabetes mellitus with diabetic chronic kidney disease; I50.43 Acute on chronic combined systolic (congestive) and diastolic (congestive) heart failure; N18.4 Chronic kidney disease, stage 4 (severe); E86.0 Dehydration; I25.5 Ischemic cardiomyopathy; I25.10 Atherosclerotic heart disease of native coronary artery without angina pectoris; I25.2 Old myocardial infarction; I48.0 Paroxysmal atrial fibrillation; E11.42 Type 2 diabetes mellitus with diabetic polyneuropathy; E11.51 Type 2 diabetes mellitus with diabetic peripheral angiopathy without gangrene; E78.00 Pure hypercholesterolemia, unspecified; E03.9 Hypothyroidism, unspecified; Z79.01 Long term (current) use of anticoagulants; Z79.82 Long term (current) use of aspirin; Z79.84 Long term (current) use of oral hypoglycemic drugs; Z79.899 Other long term (current) drug therapy; Z87.891 Personal history of nicotine dependence; Z95.810 Presence of automatic (implantable) cardiac defibrillator
CPT/HCPCS: 96361; 96365; 96366; G0463; J1250; J1642; J7050; 96360

== ENCOUNTER 2025-02-16 08:28 | Outpatient (CLI) | payer MEDICARE ==
[2025-02-16] VITALS (9 sets, daily range): BP systolic 98–129; BP diastolic 42–53; PULSE 70–95; RESP 16; O2SAT 97
[2025-02-16] MEDS: DOBUTamine 1000MCG/ML 250 ML IV ONE ×2 (08:55→08:59)
== END 2025-02-16 17:00 | disposition home or self-care (01) ==
LOC: CHF HDHVI 08:28
PROVIDERS: ATTEND Internal Medicine Cardiovascular Disease
DX: I13.0 Hypertensive heart and chronic kidney disease with heart failure and stage 1 through stage 4 chronic kidney disease, or unspecified chronic kidney disease (principal); E11.22 Type 2 diabetes mellitus with diabetic chronic kidney disease; I50.43 Acute on chronic combined systolic (congestive) and diastolic (congestive) heart failure; N18.4 Chronic kidney disease, stage 4 (severe); E11.42 Type 2 diabetes mellitus with diabetic polyneuropathy; E11.51 Type 2 diabetes mellitus with diabetic peripheral angiopathy without gangrene; E03.9 Hypothyroidism, unspecified; I25.10 Atherosclerotic heart disease of native coronary artery without angina pectoris; I48.0 Paroxysmal atrial fibrillation; E78.2 Mixed hyperlipidemia; I25.2 Old myocardial infarction; M19.90 Unspecified osteoarthritis, unspecified site; I25.5 Ischemic cardiomyopathy; G47.33 Obstructive sleep apnea (adult) (pediatric); Z79.01 Long term (current) use of anticoagulants; Z79.82 Long term (current) use of aspirin; Z79.84 Long term (current) use of oral hypoglycemic drugs; Z87.891 Personal history of nicotine dependence; Z86.73 Personal history of transient ischemic attack (TIA), and cerebral infarction without residual deficits; Z87.440 Personal history of urinary (tract) infections; Z95.0 Presence of cardiac pacemaker; Z95.1 Presence of aortocoronary bypass graft; Z79.899 Other long term (current) drug therapy; Z91.011 Allergy to milk products; Z91.013 Allergy to seafood
CPT/HCPCS: 96365; 96366; G0463; J1250; J1642

== ENCOUNTER 2025-02-18 08:27 | Outpatient (CLI) | payer MEDICARE ==
[~2025-02-18] VITALS: Ht 165.1 cm; Wt 57.2 kg
[2025-02-18] VITALS (9 sets, daily range): BP systolic 98–139; BP diastolic 40–59; PULSE 76–117; RESP 16; O2SAT 97
[2025-02-18] MEDS ORDERED: CYANOCOBALAMIN (B-12) 1000 MCG/1 ML VIAL IM ONE (08:28)
[2025-02-18] MEDS: DOBUTamine 1000MCG/ML 250 ML IV ONE ×2 (08:49→08:58)
[2025-02-18] MEDS: MAGNESIUM SULFATE 1GM/100ML 200 ML IV ONE (08:49)
[2025-02-18] MEDS: MAGNESIUM SULFATE 1GM/100ML 100 ML IV SCH (08:59)
[2025-02-18] MEDS: CYANOCOBALAMIN (B-12) 1000 MCG/1 ML VIAL ONE (09:12)
[2025-02-18] MEDS: BACITRACIN TOP OINT 1 UD PKG TOP ONE ×2 (11:23→12:03)
== END 2025-02-18 17:00 | disposition home or self-care (01) ==
LOC: CHF HDHVI 08:27
PROVIDERS: ATTEND Internal Medicine Cardiovascular Disease
DX: I13.0 Hypertensive heart and chronic kidney disease with heart failure and stage 1 through stage 4 chronic kidney disease, or unspecified chronic kidney disease (principal); E11.22 Type 2 diabetes mellitus with diabetic chronic kidney disease; I50.43 Acute on chronic combined systolic (congestive) and diastolic (congestive) heart failure; N18.4 Chronic kidney disease, stage 4 (severe); E83.42 Hypomagnesemia; D64.9 Anemia, unspecified; I25.5 Ischemic cardiomyopathy; I25.10 Atherosclerotic heart disease of native coronary artery without angina pectoris; I25.2 Old myocardial infarction; I48.0 Paroxysmal atrial fibrillation; E11.42 Type 2 diabetes mellitus with diabetic polyneuropathy; E11.51 Type 2 diabetes mellitus with diabetic peripheral angiopathy without gangrene; E78.00 Pure hypercholesterolemia, unspecified; E03.9 Hypothyroidism, unspecified; Z79.899 Other long term (current) drug therapy; Z87.891 Personal history of nicotine dependence; Z95.810 Presence of automatic (implantable) cardiac defibrillator; Z86.73 Personal history of transient ischemic attack (TIA), and cerebral infarction without residual deficits
CPT/HCPCS: 96365; 96366; 96368; G0463; J1250; J1642; J3475

== ENCOUNTER 2025-02-19 06:51 | Day surgery (SDC) | payer MEDICARE ==
[2025-02-19] VITALS (11 sets, daily range): BP systolic 89–115; BP diastolic 35–52; PULSE 60–74; RESP 13–17; TEMP 97.8–98.3; O2SAT 98
== END 2025-02-19 14:40 | disposition home or self-care (01) ==
LOC: CATH 06:51
PROVIDERS: ATTEND Internal Medicine Cardiovascular Disease
DX: D64.9 Anemia, unspecified (principal); I13.0 Hypertensive heart and chronic kidney disease with heart failure and stage 1 through stage 4 chronic kidney disease, or unspecified chronic kidney disease; E11.22 Type 2 diabetes mellitus with diabetic chronic kidney disease; I50.43 Acute on chronic combined systolic (congestive) and diastolic (congestive) heart failure; N18.4 Chronic kidney disease, stage 4 (severe); I25.10 Atherosclerotic heart disease of native coronary artery without angina pectoris; I25.5 Ischemic cardiomyopathy; I25.2 Old myocardial infarction; I48.0 Paroxysmal atrial fibrillation; E11.51 Type 2 diabetes mellitus with diabetic peripheral angiopathy without gangrene; E11.42 Type 2 diabetes mellitus with diabetic polyneuropathy; E78.00 Pure hypercholesterolemia, unspecified; E03.9 Hypothyroidism, unspecified; Z79.01 Long term (current) use of anticoagulants; Z79.82 Long term (current) use of aspirin; Z87.891 Personal history of nicotine dependence; Z95.810 Presence of automatic (implantable) cardiac defibrillator; Z86.73 Personal history of transient ischemic attack (TIA), and cerebral infarction without residual deficits
CPT/HCPCS: 36430; 86850; 86900; 86901; 86920; J7030; P9016

== ENCOUNTER 2025-02-23 08:28 | Outpatient (CLI) | payer MEDICARE ==
[2025-02-23] VITALS (9 sets, daily range): BP systolic 106–133; BP diastolic 43–66; PULSE 75–94; RESP 16; O2SAT 97–98
[2025-02-23] MEDS: DOBUTamine 1000MCG/ML 250 ML IV ONE ×2 (08:38→08:42)
[2025-02-23] MEDS: BACITRACIN TOP OINT 1 UD PKG TOP ONE ×2 (11:36→11:45)
== END 2025-02-23 17:00 | disposition home or self-care (01) ==
LOC: CHF HDHVI 08:28
PROVIDERS: ATTEND Internal Medicine Cardiovascular Disease
DX: I13.0 Hypertensive heart and chronic kidney disease with heart failure and stage 1 through stage 4 chronic kidney disease, or unspecified chronic kidney disease (principal); E11.22 Type 2 diabetes mellitus with diabetic chronic kidney disease; I50.43 Acute on chronic combined systolic (congestive) and diastolic (congestive) heart failure; N18.4 Chronic kidney disease, stage 4 (severe); I25.5 Ischemic cardiomyopathy; I25.10 Atherosclerotic heart disease of native coronary artery without angina pectoris; I25.2 Old myocardial infarction; I48.0 Paroxysmal atrial fibrillation; E11.51 Type 2 diabetes mellitus with diabetic peripheral angiopathy without gangrene; E11.42 Type 2 diabetes mellitus with diabetic polyneuropathy; E78.00 Pure hypercholesterolemia, unspecified; E03.9 Hypothyroidism, unspecified; Z79.01 Long term (current) use of anticoagulants; Z79.82 Long term (current) use of aspirin; Z79.84 Long term (current) use of oral hypoglycemic drugs; Z87.891 Personal history of nicotine dependence; Z95.810 Presence of automatic (implantable) cardiac defibrillator; Z86.73 Personal history of transient ischemic attack (TIA), and cerebral infarction without residual deficits
CPT/HCPCS: 96365; 96366; G0463; J1250; J1642

== ENCOUNTER 2025-02-25 08:29 | Outpatient (CLI) | payer MEDICARE ==
[2025-02-25] VITALS (9 sets, daily range): BP systolic 108–128; BP diastolic 44–53; PULSE 69–86; RESP 16; O2SAT 98
[2025-02-25] MEDS: DOBUTamine 1000MCG/ML 250 ML IV ONE ×2 (08:47→08:50)
[2025-02-25] MEDS: BACITRACIN TOP OINT 1 UD PKG TOP ONE ×2 (11:54→11:56)
== END 2025-02-25 17:00 | disposition home or self-care (01) ==
LOC: CHF HDHVI 08:29
PROVIDERS: ATTEND Internal Medicine Cardiovascular Disease
DX: I13.0 Hypertensive heart and chronic kidney disease with heart failure and stage 1 through stage 4 chronic kidney disease, or unspecified chronic kidney disease (principal); E11.22 Type 2 diabetes mellitus with diabetic chronic kidney disease; I50.43 Acute on chronic combined systolic (congestive) and diastolic (congestive) heart failure; N18.4 Chronic kidney disease, stage 4 (severe); E11.42 Type 2 diabetes mellitus with diabetic polyneuropathy; E11.51 Type 2 diabetes mellitus with diabetic peripheral angiopathy without gangrene; I25.10 Atherosclerotic heart disease of native coronary artery without angina pectoris; E03.9 Hypothyroidism, unspecified; I25.2 Old myocardial infarction; I48.0 Paroxysmal atrial fibrillation; E78.2 Mixed hyperlipidemia; I25.5 Ischemic cardiomyopathy; M19.90 Unspecified osteoarthritis, unspecified site; G47.33 Obstructive sleep apnea (adult) (pediatric); Z79.01 Long term (current) use of anticoagulants; Z79.82 Long term (current) use of aspirin; Z79.84 Long term (current) use of oral hypoglycemic drugs; Z87.891 Personal history of nicotine dependence; Z86.73 Personal history of transient ischemic attack (TIA), and cerebral infarction without residual deficits; Z87.440 Personal history of urinary (tract) infections; Z95.0 Presence of cardiac pacemaker; Z95.1 Presence of aortocoronary bypass graft; Z79.899 Other long term (current) drug therapy; Z91.011 Allergy to milk products; Z91.013 Allergy to seafood
CPT/HCPCS: 96365; 96366; G0463; J1250; J1642

== ENCOUNTER 2025-03-04 08:25 | Outpatient (CLI) | payer MEDICARE ==
[2025-03-04] VITALS (9 sets, daily range): BP systolic 97–131; BP diastolic 42–56; PULSE 71–94; RESP 16; O2SAT 97
[2025-03-04] MEDS: DOBUTamine 1000MCG/ML 250 ML IV ONE ×2 (08:54→09:00)
[2025-03-04] MEDS: BACITRACIN TOP OINT 1 UD PKG TOP ONE ×2 (09:38→12:03)
== END 2025-03-04 17:00 | disposition home or self-care (01) ==
LOC: CHF HDHVI 08:25
PROVIDERS: ATTEND Internal Medicine Cardiovascular Disease
DX: I13.0 Hypertensive heart and chronic kidney disease with heart failure and stage 1 through stage 4 chronic kidney disease, or unspecified chronic kidney disease (principal); E11.22 Type 2 diabetes mellitus with diabetic chronic kidney disease; I50.43 Acute on chronic combined systolic (congestive) and diastolic (congestive) heart failure; N18.4 Chronic kidney disease, stage 4 (severe); I25.10 Atherosclerotic heart disease of native coronary artery without angina pectoris; E11.42 Type 2 diabetes mellitus with diabetic polyneuropathy; E11.51 Type 2 diabetes mellitus with diabetic peripheral angiopathy without gangrene; E03.9 Hypothyroidism, unspecified; I25.5 Ischemic cardiomyopathy; I25.2 Old myocardial infarction; I48.0 Paroxysmal atrial fibrillation; E78.2 Mixed hyperlipidemia; G47.33 Obstructive sleep apnea (adult) (pediatric); M19.90 Unspecified osteoarthritis, unspecified site; Z79.01 Long term (current) use of anticoagulants; Z79.82 Long term (current) use of aspirin; Z79.84 Long term (current) use of oral hypoglycemic drugs; Z91.011 Allergy to milk products; Z91.013 Allergy to seafood; Z79.899 Other long term (current) drug therapy; Z87.891 Personal history of nicotine dependence; Z87.440 Personal history of urinary (tract) infections; Z95.0 Presence of cardiac pacemaker; Z95.1 Presence of aortocoronary bypass graft; Z86.73 Personal history of transient ischemic attack (TIA), and cerebral infarction without residual deficits
CPT/HCPCS: 96365; 96366; G0463; J1250; J1642

== ENCOUNTER 2025-03-09 09:07 | Inpatient (IN) | payer MEDICARE ==
[~2025-03-09] VITALS: Ht 165.1 cm; Wt 68.0 kg
[2025-03-09] VITALS (31 sets, daily range): BP systolic 95–139; BP diastolic 35–60; PULSE 73–119; RESP 13–28; TEMP 97.8–98.9; O2SAT 95–99
--- NOTE | 2025-03-09 09:42 | ED.PDOC ---
GI ASSESSMENT HPI Comments 89-year-old male brought in by son presents to the ED with a chief complaint of blood in stool onset 4 days. Patient states she has been experiencing blood in stool for the past 4 days as well as generalized weakness. Patient spoke to Dr. Hope, recommended patient to come to ED for possible transfusion. Son states patient's blood was bright red, for the past day noticed blood is thick. Patient is usually able to ambulate with walker, has not been able to due to weakness. He is currently on blood thinners. PMHx CHF, anemia. Denies headache, dizziness, nausea, vomiting, diarrhea, hematemesis, dysuria, hematuria, fever, chills. No other symptoms or modifying factors present at this time. Chief Complaint: GI Bleed Time Seen by MD: 09:20 Reviewed Notes: Medications, Allergies Allergies: Coded Allergies: NO KNOWN ALLERGIES (Verified , 11/11/24) Home Meds Reported Medications Aspirin (Aspirin) 81 Mg Tab, 1 TAB PO DAILY for HEART ATTACK PREVENTION 11/12/24 Clopidogrel Bisulfate (Plavix) 75 Mg Tab, 1 TAB PO DAILY for HEART DISEASE 06/22/24 Lorazepam (ATIVAN TABLET) 0.5 Mg Tb, 1 TAB PO HS for ANXIETY 06/22/24 Insulin Glargine (Lantus) 100 Unit/Ml Inj, 10 UNIT SC BID for DIABETES 06/22/24 Bumetanide (Bumex) 2 Mg Tab, 1 TAB PO DAILY for EDEMA 01/27/24 Pramipexole Dihydrochloride (Mirapex) 0.5 Mg Tab, 1 TAB PO DAILY for PARKINSON'S DISEASE 09/28/22 Ivabradine Hydrochloride (Corlanor) 5 Mg Tab, 1 TAB PO BID for HEART FAILURE 09/28/22 Sacubitril-Valsartan (Entresto 24-26 mg) 1 Tab Tab, 1 TAB PO DAILY for HYPERTENSION 09/28/22 Magnesium Oxide (MAGNESIUM OXIDE) 400 Mg Tab, 1 TAB PO DAILY for SUPPLEMENT 09/28/22 Cetirizine Hcl (ZYRTEC ALLERGY) 10 Mg Tab, 1 TAB PO DAILY for ALLERGIES 02/20/21 Potassium Chloride (Klor-Con M10) 10 Meq Tab, 1 TAB PO DAILY for SUPPLEMENT 02/20/21 Tamsulosin Hcl (Flomax) 0.4 Mg Cap, 1 CAP PO BID for BPH 02/20/21 Atorvastatin Calcium (Lipitor) 20 Mg Tab, 1 TAB PO HS for HIGH CHOLESTEROL 08/15/10 Information Source: Patient, Relative (Child) Mode of Arrival: Wheelchair Timing: Days Duration: Since onset Prehospital treatment: None Severity: Moderate Recent: None Recent Hx of: None Modifying Factors: Nothing Associated sign and symptoms: Blood in Stool Past Medical History PAST MEDICAL HISTORY: Anemia, CHF Surgical History: Denies all surgeries Family History Family History: Reviewed,noncontributory to illness, No family hx of Cancer, No family hx of DM, No family hx of Heart bony, No family hx of HTN, No family hx ofKidney bony, No family hx of Liver bony, No family hx of Lung bony, No family hx of Stroke Social History Smoker: Non-Smoker Alcohol: Denies ETOH Use Drugs: Denies Drug Use Lives In: Home Constitutional: reports: weakness; denies: chills, diaphoresis, fatigue, fever, malaise, sweats, others EENTM: denies: blurred vision, double vision, ear bleeding, ear discharge, ear drainage, ear pain, ear ringing, eye pain, eye redness, hearing loss, mouth pain, mouth swelling, nasal discharge, nose bleeding, nose congestion, nose pain, photophobia, tearing, throat pain, throat swelling, voice changes, others Respiratory: denies: cough, hemoptysis, orthopnea, SOB at rest, shortness of breath, SOB with excertion, stridor, wheezing, others Cardiovascular: denies: chest pain, dizzy spells, diaphoresis, Dyspnea on exertion, edema, irregular heart beat, left arm pain, lightheadedness, palpitations, PND, syncope, others Gastrointestinal: reports: rectal bleeding; denies: abdomen distended, abdominal pain, blood streaked bowels, constipated, diarrhea, dysphagia, difficulty swallowing, hematemesis, melena, nausea, poor appetite, poor fluid intake, rectal pain, vomiting, others Genitourinary: denies: burning, dysuria, flank pain, frequency, hematuria, incontinence, penile discharge, penile sore, pain, testicle pain, testicle swelling, urgency, others Neurological: reports: weakness; denies: dizziness, fainting, headache, left sided numbness, left sided weakness, numbness, paresthesia, pre-existing deficit, right sided numbness, right sided weakness, seizure, speech problems, tingling, tremors, others Musculoskeletal: denies: back pain, gout, joint pain, joint swelling, muscle pain, muscle stiffness, neck pain, others Integumetry: denies: bruises, change in color, change in hair/nails, dryness, laceration, lesions, lumps, rash, wounds, others Allergic/Immunocompromised: denies: Difficulty Healing, Frequent Infections, Hi ves, Itching, others Hematologic/Lymphatic: denies: anemia, blood clots, easy bleeding, easy bruising, swollen glands, others Endocrine: denies: excessive hunger, excessive sweating, excessive thirst, excessive urination, flushing, intolerance to cold, intolerance to heat, unexplained weight gain, unexplained weight loss, others Psychiatric: denies: anxiety, bipolar disorder, depression, hopeless, panic disorder, schizophrenia, sleepless, suicidal, others All Other Systems: Reviewed and Negative Physical Exam General Appearance: Moderate Distress, Thin HEENT: Normal ENT Inspection, Pharynx Normal, TMs Normal Neck: Full Range of Motion, Non-Tender, Normal, Normal Inspection Respiratory: Chest Non-Tender, Lungs Clear, No Accessory Muscle Use, No Respiratory Distress, Normal Breath Sounds Cardiovascular: No Edema, No JVD, No Murmur, No Gallop, Normal Peripheral Pulses, Regular Rate/Rhythm Breast Exam: Deferred Gastrointestinal: No Organomegaly, Non Tender, No Pulsatile Mass, Normal Bowel Sounds, Soft Genitalia: Deferred Pelvic: Deferred Rectal: Deferred Extremities: No calf tenderness, Normal capillary refill, Normal range of motion, Non-tender, No pedal edema Musculoskeletal : Apperance: Normal Neurologic: Alert, boat dispatcher II-XII nml as Tested, No Motor Deficits, Normal Affect, Normal Mood, No Sensory Deficits Cerebellar Function: NOT DONE Reflexes: NOT DONE Skin: Dry, Pallor, Warm Peripheral Pulses: 3+ Radial (R), 3+ Radial (L) Lymphatic: No Adenopathy Was a procedure done? Was a procedure done?: No GI differential Dx Differential Diagnosis: Constipation, Diverticular disease, Esophagitis, Gastritis/PUD, Gastroenteritis X-Ray, Labs, Meds, VS Vital Signs Date Time Temp Pulse Resp B/P (MAP) Pulse Ox O2 Delivery O2 Flow Rate FiO2 03/09/25 10:30 83/34 03/09/25 09:27 97.8 85 16 99/38 (58) 99 97.8 03/09/25 09:27 85 16 99 Room Air* 0 21 03/09/25 09:21 88 03/09/25 09:15 98.6 89 16 82/29 95 98.6 Lab Test 03/09/25 09:57 03/09/25 09:30 Range/Units POC Glucose 211 H 70-106 mg/dl White Blood Count 9.8 4.4-10.8 10^3/uL Red Blood Count 2.88 L 4.5-5.90 10^6/uL Hemoglobin 9.3 L 13.5-17.5 g/dL Hematocrit 26.6 L 41.0-53.0 % Mean Corpuscular Volume 92.5 80.0-100.0 fL Mean Corpuscular Hemoglobin 32.3 H 28.0-32.0 pg Mean Corpuscular Hemoglobin Concent 35.0 32.0-36.0 g/dL Red Cell Distribution Width 18.3 H 11.8-14.3 % Platelet Count 111 L 140-450 10^3/uL Mean Platelet Volume 7.7 6.9-10.8 fL Neutrophils (%) (Auto) 84.2 H 37.0-80.0 % Lymphocytes (%) (Auto) 10.3 10.0-50.0 % Monocytes (%) (Auto) 5.0 0.0-12.0 % Eosinophils (%) (Auto) 0.0 0.0-7.0 % Basophils (%) (Auto) 0.5 0.0-2.0 % Neutrophils # (Auto) 8.3 1.6-8.6 10 ^3/uL Lymphocytes # (Auto) 1.0 0.4-5.4 10 ^3/uL Monocytes # (Auto) 0.5 0-1.3 10 ^3/uL Eosinophils # (Auto) 0 0-0.8 10 ^3/uL Basophils # (Auto) 0 0-0.2 10 ^3/uL Nucleated Red Blood Cells 0.0 % Prothrombin Time 13.6 H 9.3-11.8 sec Prothrombin Time INR 1.32 H 0.9-1.15 Activated Partial Thromboplast Time 28.5 24.5-34.5 SEC Sodium Level 133 L 136-145 mmol/L Potassium Level 4.1 3.5-5.1 mmol/L Chloride Level 99 98-107 mmol/L Carbon Dioxide Level 23 20-31 mmol/L Anion Gap 11 5-15 Blood Urea Nitrogen 51 H 9-23 mg/dL Creatinine 2.29 H 0.700-1.30 mg/dL Glomerular Filtration Rate Calc 27 >90 mL/min BUN/Creatinine Ratio 22.3 H 10.0-20.0 Serum Glucose 185 H 74-106 mg/dL Lactic Acid Level 1.3 0.4-2.0 mmol/L Calcium Level 8.6 L 8.7-10.4 mg/dL Total Bilirubin 1.1 H 0.2-1.0 mg/dL Aspartate Amino Transferase (AST) 37 13-40 U/L Alanine Aminotransferase (ALT) 21 7-40 U/L Alkaline Phosphatase 57 46-116 U/L B-Type Natriuretic Peptide 2751.63 0-100 pg/mL Total Protein 6.8 5.7-8.2 g/dL Albumin 3.7 3.2-4.8 g/dL Current Medications Medications (Trade) Dose Ordered Sig/Meenu Route Start Time Stop Time Status Last Admin Sodium Chloride 1,000 ml @ 50 mls/hr Q20H ONCE IV 03/09/25 09:30 03/10/25 05:29 03/09/25 09:50 Norepinephrine Bitartrate 250 ml @ 3.75 mls/hr Q24H IV 03/09/25 10:30 03/09/25 10:30 [place] [address] Ph: [phone] DIAGNOSTIC IMAGING Diagnostic Imaging Report : [id number] Signed PATIENT: GEOVANNA KAUR LACCT: [id number] UNIT: [id number] : 1935 LOC: ER ROOM / BED: / AGE / SEX: 89 / M ADM STATUS: REG ER SERVICE 0 ORDERING PHYSICIAN: ABNER JORDAN MD PROCEDURE(s): ABPL - CT AB PEL WO CON-NO ORAL OR IV REASON: r/o bleed ORDER NUMBER(s): [id number], ACCESSION NUMBER(s): [id number] Exam: CT CT AB PEL WO CON-NO ORAL OR IV History: r/o bleed Comparison Study: CT CHST AB PEL WO CON-NO IV/ORAL on DOS: 11/18/24 Technique: Multidetector spiral CT of the abdomen and pelvis was performed from lung bases to pubic symphysis. Imaging was performed without intravenous contrast. Coronal and sagittal multiplanar reformats were obtained from the axial data set by the technologist. Radiation Dose : 1. Abdomen/Pelvis: CTDIvol 5.9 mGy, DLP 3.92 mGy*cm. Findings: Evaluation of vasculature and solid organs is limited due to lack of intravenous contrast use. Lung Bases: Small bilateral pleural effusions. Bilateral lower lobe atelectasis. Cardiomegaly. AICD noted. Liver: The liver is normal in size. No focal lesions. Gallbladder and Biliary Tree: The gallbladder contains multiple gallstones. No intrahepatic or extrahepatic biliary ductal dilatation. Spleen: Unremarkable Pancreas: The pancreas is grossly unremarkable. Adrenal Glands: Unremarkable Kidneys: Kidneys are unremarkable without calculi or hydronephrosis. GI tract: The stomach is grossly normal in appearance. No evidence of small bowel wall thickening or abnormal dilatation to suggest bowel obstruction. There is marked mucosal thickening of the rectosigmoid colon. Scattered stool throughout the colon. No acute appendicitis. Peritoneum/mesentery/retroperitoneum. No evidence of free intraperitoneal air. No ascites. No evidence of suspicious lymphadenopathy. Abdominal Wall: Unremarkable. Vasculature: There is 3.2 cm infrarenal abdominal aortic aneurysm. Intimal calcifications in the upper abdominal aorta similar to prior study. Grade Diffuse atherosclerotic calcifications in the abdominal aorta and branches. Urinary Bladder: Grossly unremarkable for degree of distention. Pelvic Organs: Unremarkable Musculoskeletal: No aggressive focal bony lesions, acute fractures or dislocation. IMPRESSION: 1. Marked mucosal thickening of the rectosigmoid colon, consistent with severe proctocolitis. Neoplasm is not excluded. 2. Cholelithiasis. 3. Small bilateral pleural effusions. 4. Cardiomegaly. 5. 2.5 cm infrarenal abdominal aortic aneurysm. ATED BY: MARISELA LR MD DICTATED DATE/TIME: 03/09/25 1016 SIGNED BY: MARISELA LR MD SIGNED DATE/TIME: 03/09/25 1016 CC: [facility] [id number] [place] [id number] Ph: [phone] DIAGNOSTIC IMAGING Diagnostic Imaging Report : [id number] Signed PATIENT: GEOVANNA KAUR LACCT: [id number] UNIT: [id number] : 1935 LOC: ER ROOM / BED: / AGE / SEX: 89 / M ADM STATUS: REG ER SERVICE 7 ORDERING PHYSICIAN: ABNER JORDAN MD PROCEDURE(s): CXR1 - CHEST XRAY 1 VIEW REASON: generalized weakness ORDER NUMBER(s): [id number], ACCESSION NUMBER(s): [id number] CHEST RADIOGRAPH Indication: generalized weakness Technique: Single frontal view of the chest was obtained COMPARISON: XY CHEST TWO VIEWS ROUTINE on DOS: 02/02/25, XY CHEST TWO VIEWS ROUTINE on DOS: 12/22/24, XY CHEST TWO VIEWS ROUTINE on DOS: 10/27/24, XY CHEST TWO VIEWS ROUTINE on DOS: 09/22/24, XY CHEST TWO VIEWS ROUTINE on DOS: 07/10/24 FINDINGS: Lines and Tubes: Right chest port in satisfactory position. Left chest AICD. Median sternotomy. Lungs: Clear Pleura: Small left pleural effusion No pneumothorax. Cardiomediastinal contours: Unremarkable Bones: Unremarkable IMPRESSION: Small left pleural effusion ATED BY: DAYRON KONG MD DICTATED DATE/TIME: 03/09/25 100 SIGNED BY: DAYRON KONG MD SIGNED DATE/TIME: 03/09/25 1003 CC: Patient alert pain He is pale. Blood pressure on the low side. Started Levophed. Chest x-ray reviewed does show small effusion. GI bleed. Possibly need blood transfusion. Chronic cardiac history. Continue monitoring. Time of 1ST Reevaluation: 09:50 Reevaluation 1ST: Unchanged Patient Education/Counseling: Diagnosis, Treatment, Prognosis Family Education/Counseling: Diagnosis, Treatment, Prognosis SEPSIS Sepsis Screen Date sepsis recognized/suspect: Mar 09, 2025 Time Sepsis recognized/suspect: 917 Recent Procedure: No On Antibiotic Therapy: No Respiratory Rate >20: No Heart Rate >90: No Temp<36 C (96.8 F) or >38.3 C: No SBP <90 or MAP <65 mmHG: Yes New Acute Mental Status Change: No Is the patient on CPAP, BIPAP,: No Physician Orders Electrocardigram (03/09/25 09:24) Blood Culture (03/09/25 09:28) Chest Xray 1 View (03/09/25 09:28) Sodium Chloride 0.9% (03/09/25 09:30) Type And Screen (03/09/25 09:28) Ct Ab Pel Wo Con-No Oral Or Iv (03/09/25 09:31) Packedcells -Active Bleeding (03/09/25 09:31) Norepinephrine 8 Mg/250ml Kit (Levophed) (03/09/25 10:30) Vital Signs Date Time Temp Pulse Resp B/P (MAP) Pulse Ox O2 Delivery O2 Flow Rate FiO2 03/09/25 10:30 83/34 03/09/25 09:27 97.8 85 16 99/38 (58) 99 97.8 03/09/25 09:27 85 16 99 Room Air* 0 21 03/09/25 09:21 88 03/09/25 09:15 98.6 89 16 82/29 95 98.6 Laboratory Tests Test 03/09/25 09:30 Lactic Acid Level 1.3 mmol/L (0.4-2.0) White Blood Count 9.8 10^3/uL (4.4-10.8) Medications Medications Dose Ordered Sig/Meenu Route Start Time Stop Time Status Last Admin Dose Admin Norepinephrine Bitartrate 250 ml @ 3.75 mls/hr Q24H IV 03/09/25 10:30 03/09/25 10:30 Sodium Chloride 1,000 ml @ 50 mls/hr Q20H ONCE IV 03/09/25 09:30 03/10/25 05:29 03/09/25 09:50 Departure 1 Departure Time of Disposition: 11:07 Impression: Primary Impression: CHF (congestive heart failure) Qualified Codes: I50.43 - Acute on chronic combined systolic (congestive) and diastolic (congestive) heart failure Additional Impressions: Severe anemia GI bleed Qualified Codes: K92.2 - Gastrointestinal hemorrhage, unspecified Disposition: ADMITTED INPATIENT Admit to: Med Surg Condition: Guarded Critical Care Note Critical Care Time?: Yes (90 min-critical care time only) Stability Stability form required: No Heart Score Heart Score: Heart Score Response (Comments) Value History Slightly Suspicious 0 EKG Normal 0 Age >65 2 Risk Factors >3 or Hx ASHD 2 Troponin Normal limit 0 Total 4 I personally scribed for ABNER JORDAN MD ([email or web address]) on 03/09/25 at 09:42. Electronically submitted by Annie Reyes ([email or web address]). I personally scribed for ABNER JORDAN MD ([email or web address]) on 03/09/25 at 10:57. Electronically submitted by Annie Reyes ([email or web address]). ABNER JORDAN MD Mar 09, 2025 09:42
[2025-03-09] MEDS: SODIUM CHLORIDE 0.9% 1,000 ML IV ONE (09:50)
--- NOTE | 2025-03-09 10:06 | DVH ---
CHEST RADIOGRAPH Indication: generalized weakness Technique: Single frontal view of the chest was obtained COMPARISON: XY CHEST TWO VIEWS ROUTINE on DOS: 02/02/25, XY CHEST TWO VIEWS ROUTINE on DOS: 12/22/24, XY CHEST TWO VIEWS ROUTINE on DOS: 10/27/24, XY CHEST TWO VIEWS ROUTINE on DOS: 09/22/24, XY CHEST TWO EWS ROUTINE on DOS: 07/10/24 FINDINGS: Lines and Tubes: Right chest port in satisfactory position. Left chest AICD. Median sternotomy. Lungs: Clear Pleura: Small left pleural effusion No pneumothorax. Cardiomediastinal contours: Unremarkable Bones: Unremarkable IMPRESSION: Small left pleural effusion
[2025-03-09 10:14] LABS: Hematocrit 26.6 % (41.0-53.0); Hemoglobin 9.3 g/dL (13.5-17.5); Mean Corpuscular Hemoglobin 32.3 pg (28.0-32.0); Mean Corpuscular Volume 92.5 fL (80.0-100.0); Nucleated Red Blood Cells % 0.0 %
--- NOTE | 2025-03-09 10:18 | DVH ---
Exam: CT CT AB PEL WO CON-NO ORAL OR IV History: r/o bleed Comparison Study: CT CHST AB PEL WO CON-NO IV/ORAL on DOS: 11/18/24 Technique: Multidetector spiral CT of the abdomen and pelvis was performed from lung bases to pubic s ymphysis. Imaging was performed without intravenous contrast. Coronal and sagittal multiplanar reform ats were obtained from the axial data set by the technologist. Radiation Dose : 1. Abdomen/Pelvis: CTDIvol 5.9 mGy, DLP 3.92 mGy*cm. Findings: Evaluation of vasculature and solid organs is limited due to lack of intravenous contrast use. Lung Bases: Small bilateral pleural effusions. Bilateral lower lobe atelectasis. Cardiomegaly. AICD n oted. Liver: The liver is normal in size. No focal lesions. Gallbladder and Biliary Tree: The gallbladder contains multiple gallstones. No intrahepatic or extrah epatic biliary ductal dilatation. Spleen: Unremarkable Pancreas: The pancreas is grossly unremarkable. Adrenal Glands: Unremarkable Kidneys: Kidneys are unremarkable without calculi or hydronephrosis. GI tract: The stomach is grossly normal in appearance. No evidence of small bowel wall thickening or abnormal dilatation to suggest bowel obstruction. There is marked mucosal thickening of the rectosigm oid colon. Scattered stool throughout the colon. No acute appendicitis. Peritoneum/mesentery/retroperitoneum. No evidence of free intraperitoneal air. No ascites. No evidenc e of suspicious lymphadenopathy. Abdominal Wall: Unremarkable. Vasculature: There is 3.2 cm infrarenal abdominal aortic aneurysm. Intimal calcifications in the uppe r abdominal aorta similar to prior study. Grade Diffuse atherosclerotic calcifications in the abdomin al aorta and branches. Urinary Bladder: Grossly unremarkable for degree of distention. Pelvic Organs: Unremarkable Musculoskeletal: No aggressive focal bony lesions, acute fractures or dislocation. IMPRESSION: 1. Marked mucosal thickening of the rectosigmoid colon, consistent with severe proctocolitis. Neoplas m is not excluded. 2. Cholelithiasis. 3. Small bilateral pleural effusions. 4. Cardiomegaly. 5. 2.5 cm infrarenal abdominal aortic aneurysm.
[2025-03-09 10:24] LABS: INR 1.32 (0.9-1.15); Partial Thromboplastin Time 28.5 SEC (24.5-34.5); Prothrombin Time 13.6 sec (9.3-11.8)
[2025-03-09 10:28] LABS: Alanine Aminotransferase 21 U/L (7-40); Albumin 3.7 g/dL (3.2-4.8); Alkaline Phosphatase 57 U/L (46-116); Anion Gap 11 (5-15); BUN/Creatinine Ratio 22.3 (10.0-20.0); Carbon Dioxide 23 mmol/L (20-31); Chloride 99 mmol/L (98-107); Potassium 4.1 mmol/L (3.5-5.1); Total Protein 6.8 g/dL (5.7-8.2)
[2025-03-09 10:29] LABS: Bilirubin, Total 1.1 mg/dL (0.2-1.0); Blood Urea Nitrogen 51 mg/dL (9-23); Calcium 8.6 mg/dL (8.7-10.4); Glucose 185 mg/dL (74-106); Sodium 133 mmol/L (136-145)
[2025-03-09] MEDS: NOREPINEPHRINE 8 MG/250ML KIT 250 ML IV SCH (10:30)
--- NOTE | 2025-03-09 12:48 | DVH ---
CLINICAL INDICATION: verify central line placement TECHNIQUE: 1 radiographic views of the pelvis were obtained. Comparison: None FINDINGS/IMPRESSION: There is no evidence of acute fracture or dislocation. Left femoral approach central venous catheter tip projects over the L5 vertebral body. The visualized joint space is well maintained. The alignment is anatomical. There is no radiopaque foreign body.
[2025-03-09] MEDS ORDERED: DEXTROSE (50%) 50ML SYRG IV PRN (13:45)
[2025-03-09] MEDS ORDERED: HYDROcodone-ACET 5/325MG TAB PO PRN (13:45)
[2025-03-09] MEDS ORDERED: MORPHINE SULFATE INJ 2 MG/ml SYRG IV PRN ×2 (13:45)
[2025-03-09] MEDS ORDERED: DOCUSATE SOD 100 MG CAP PO PRN (13:45)
[2025-03-09] MEDS ORDERED: NITROGLYCERIN 0.4 MG SL TAB SL PRN (13:45)
--- NOTE | 2025-03-09 14:36 | DVHHP2 ---
History of Present Illness Reason for Visit: GI bleed History of Present Illness Tank Amador is an 89-year-old male with a past medical history of CHF, diabetes, and anemia, who came to the hospital due to rectal bleeding and generalized weakness. Patient states he has been having rectal bleeding for 3 days. He was seen by Dr. Hope and told to come to the hospital. Patient has history of anemia requiring transfusion. He was last transfused with 2 units of PRBC on 02/19/2025. Patient is seen by Dr. Hope at the CHF clinic and receives dobutamine infusion for his CHF. Per the patient's son, the patient usually gets around well with his walker. This last week he has been more sedentary due to generalized weakness. Cardiovascular: CHF, Other (AICD) Heme/Onc: Anemia NOS Endocrine: Diabetes Smoke: No ALCOHOL: none Drugs: None Lives: with Family Domestic Violence: Neg Review of Systems Constitutional: Yes: Weakness, Malaise; No: Fever, Chills, Sweats, Other Eyes: No: Pain, Vision change, Conjunctivae inflammation, Eyelid inflammation, Other, Redness ENT: No: Ear pain, Ear discharge, Nose pain, Nose discharge, Nose congestion, Mouth pain, Mouth swelling, Throat pain, Throat swelling, Other Respiratory: No: Cough, Dry, Shortness of breath, SOB with excertion, Wheezing, Hemoptysis, Pleuritic Pain, Sputum, Wheezing, Other Cardiovascular: No: Chest Pain, Palpitations, Orthopnea, Paroxysmal Noc. Dyspnea, Edema, Lt Headedness, Other Gastrointestinal: No: Nausea, Vomiting, Abdominal Pain, Diarrhea, Constipation, Melena, Hematochezia, Other Genitourinary: No Dysuria, No Frequency, No Incontinence, No Hematuria, No Retention, No Other Musculoskeletal: No: other, neck pain, shoulder pain, arm pain, back pain, hand pain, leg pain, foot pain Skin: No: Rash, Lesions, Jaundice, Bruising, Other Neurological: Weakness; No: Numbness, Incoordination, Change in speech, Confusion, Seizures, Other Allergies: Coded Allergies: NO KNOWN ALLERGIES (Verified , 11/11/24) Medications Current Medications Medications Dose Ordered Sig/Meenu Route Start Time Stop Time Status Last Admin Dose Admin Norepinephrine Bitartrate 250 ml @ 3.75 mls/hr Q24H IV 03/09/25 10:30 9/9/25 10:30 3.75 MLS/HR Acetaminophen/ Hydrocodone Bitart 1 tab Q4HP PRN PO 03/09/25 13:45 UNV Ondansetron HCl 4 mg Q4HP PRN IV 03/09/25 13:45 UNV Docusate Sodium 100 mg BIDPRN PRN PO 03/09/25 13:45 UNV Enoxaparin Sodium 30 mg DAILY SC 03/10/25 10:00 UNV Acetaminophen 650 mg Q6HP PRN PO 03/09/25 13:45 UNV Morphine Sulfate 2 mg Q4HPRN PRN IV 03/09/25 13:45 UNV Nitroglycerin 0.4 mg Q5MINP PRN SL 03/09/25 13:45 UNV Morphine Sulfate 2 mg Q30M PRN IV 03/09/25 13:45 UNV Diagnostic Test (Pha) 1 strip ACHS 03/09/25 17:00 UNV Insulin Human Regular ACHS SC 03/09/25 17:00 UNV Dextrose 50 ml UD PRN IV 03/09/25 13:45 UNV Dobutamine HCl/ Dextrose 250 ml @ 8.7 mls/hr Q24H IV 03/09/25 13:45 UNV Aspirin 81 mg DAILY PO 03/10/25 10:00 UNV Atorvastatin Calcium 20 mg HS PO 03/09/25 22:00 UNV Clopidogrel Bisulfate 75 mg DAILY PO 03/10/25 10:00 UNV Exam Vital Signs Vital Signs Date Time Temp Pulse Resp B/P (MAP) Pulse Ox O2 Delivery O2 Flow Rate FiO2 03/09/25 13:15 74 15 101/50 (67) 99 03/09/25 09:27 97.8 97.8 03/09/25 09:27 Room Air* 0 21 General Appearance: Alert, Oriented X3, Cooperative, No acute distress HEENT: Atraumatic, Other (Mucous membr dry) Cardiovascular: Regular rate, Normal S1, Normal S2, Other (On vasopressors) Abdominal: Normal bowel sounds, Soft, No tenderness Extremities: No cyanosis, No edema, Normal pulses Skin: No rashes, No breakdown Neuro: Normal speech, Other (Weakness, unable to ambulate at this time) Psych/Mental Status: Mental status NL, Mood NL Labs/Xrays Labs Test 03/09/25 09:57 03/09/25 09:30 Range/Units POC Glucose 211 H 70-106 mg/dl White Blood Count 9.8 4.4-10.8 10^3/uL Red Blood Count 2.88 L 4.5-5.90 10^6/uL Hemoglobin 9.3 L 13.5-17.5 g/dL Hematocrit 26.6 L 41.0-53.0 % Mean Corpuscular Volume 92.5 80.0-100.0 fL Mean Corpuscular Hemoglobin 32.3 H 28.0-32.0 pg Mean Corpuscular Hemoglobin Concent 35.0 32.0-36.0 g/dL Red Cell Distribution Width 18.3 H 11.8-14.3 % Platelet Count 111 L 140-450 10^3/uL Mean Platelet Volume 7.7 6.9-10.8 fL Neutrophils (%) (Auto) 84.2 H 37.0-80.0 % Lymphocytes (%) (Auto) 10.3 10.0-50.0 % Monocytes (%) (Auto) 5.0 0.0-12.0 % Eosinophils (%) (Auto) 0.0 0.0-7.0 % Basophils (%) (Auto) 0.5 0.0-2.0 % Neutrophils # (Auto) 8.3 1.6-8.6 10 ^3/uL Lymphocytes # (Auto) 1.0 0.4-5.4 10 ^3/uL Monocytes # (Auto) 0.5 0-1.3 10 ^3/uL Eosinophils # (Auto) 0 0-0.8 10 ^3/uL Basophils # (Auto) 0 0-0.2 10 ^3/uL Nucleated Red Blood Cells 0.0 % Prothrombin Time 13.6 H 9.3-11.8 sec Prothrombin Time INR 1.32 H 0.9-1.15 Activated Partial Thromboplast Time 28.5 24.5-34.5 SEC Sodium Level 133 L 136-145 mmol/L Potassium Level 4.1 3.5-5.1 mmol/L Chloride Level 99 98-107 mmol/L Carbon Dioxide Level 23 20-31 mmol/L Anion Gap 11 5-15 Blood Urea Nitrogen 51 H 9-23 mg/dL Creatinine 2.29 H 0.700-1.30 mg/dL Glomerular Filtration Rate Calc 27 >90 mL/min BUN/Creatinine Ratio 22.3 H 10.0-20.0 Serum Glucose 185 H 74-106 mg/dL Lactic Acid Level 1.3 0.4-2.0 mmol/L Calcium Level 8.6 L 8.7-10.4 mg/dL Total Bilirubin 1.1 H 0.2-1.0 mg/dL Aspartate Amino Transferase (AST) 37 13-40 U/L Alanine Aminotransferase (ALT) 21 7-40 U/L Alkaline Phosphatase 57 46-116 U/L B-Type Natriuretic Peptide 2751.63 0-100 pg/mL Total Protein 6.8 5.7-8.2 g/dL Albumin 3.7 3.2-4.8 g/dL CHEST RADIOGRAPH FINDINGS: Lines and Tubes: Right chest port in satisfactory position. Left chest AICD. Median sternotomy. Lungs: Clear Pleura: Small left pleural effusion No pneumothorax. Cardiomediastinal contours: Unremarkable Bones: Unremarkable IMPRESSION: Small left pleural effusion Exam: CT CT AB PEL WO CON-NO ORAL OR IV Findings: Evaluation of vasculature and solid organs is limited due to lack of intravenous contrast use. Lung Bases: Small bilateral pleural effusions. Bilateral lower lobe atelectasis. Cardiomegaly. AICD noted. Liver: The liver is normal in size. No focal lesions. Gallbladder and Biliary Tree: The gallbladder contains multiple gallstones. No intrahepatic or extrahepatic biliary ductal dilatation. Spleen: Unremarkable Pancreas: The pancreas is grossly unremarkable. Adrenal Glands: Unremarkable Kidneys: Kidneys are unremarkable without calculi or hydronephrosis. GI tract: The stomach is grossly normal in appearance. No evidence of small bowel wall thickening or abnormal dilatation to suggest bowel obstruction. There is marked mucosal thickening of the rectosigmoid colon. Scattered stool throughout the colon. No acute appendicitis. Peritoneum/mesentery/retroperitoneum. No evidence of free intraperitoneal air. N o ascites. No evidence of suspicious lymphadenopathy. Abdominal Wall: Unremarkable. Vasculature: There is 3.2 cm infrarenal abdominal aortic aneurysm. Intimal calcifications in the upper abdominal aorta similar to prior study. Grade Diffuse atherosclerotic calcifications in the abdominal aorta and branches. Urinary Bladder: Grossly unremarkable for degree of distention. Pelvic Organs: Unremarkable Musculoskeletal: No aggressive focal bony lesions, acute fractures or dislocation. IMPRESSION: 1. Marked mucosal thickening of the rectosigmoid colon, consistent with severe proctocolitis. Neoplasm is not excluded. 2. Cholelithiasis. 3. Small bilateral pleural effusions. 4. Cardiomegaly. 5. 2.5 cm infrarenal abdominal aortic aneurysm. SEPSIS Sepsis Screen Date sepsis recognized/suspect: Mar 09, 2025 Time Sepsis recognized/suspect: 926 Recent Procedure: No On Antibiotic Therapy: No Respiratory Rate >20: No Heart Rate >90: No Temp<36 C (96.8 F) or >38.3 C: No SBP <90 or MAP <65 mmHG: No New Acute Mental Status Change: No Is the patient on CPAP, BIPAP,: No Physician Orders Electrocardigram (03/09/25 09:24) Blood Culture (03/09/25 09:28) Chest Xray 1 View (03/09/25 09:28) Sodium Chloride 0.9% (03/09/25 09:30) Ct Ab Pel Wo Con-No Oral Or Iv (03/09/25 09:31) Norepinephrine 8 Mg/250ml Kit (Levophed) (03/09/25 10:30) Pelvis Ap (03/09/25 12:07) Urinalysis (03/09/25 13:18) Well Control Instructor (03/09/25 ) Admit (03/09/25 13:36) Code Status (03/09/25 13:36) Hydrocodone-Acet 5/325mg Tab (Gerlach 5/32 (03/09/25 13:45) Ondansetron Hcl (Zofran) (03/09/25 13:45) Docusate Sodium Capsule (Colace Capsule) (03/09/25 13:45) Fall Risk Precautions In Place QSHIFT (03/09/25 13:36) Complete Blood Count (03/10/25 04:00) Comprehensive Metabolic Panel (03/10/25 04:00) Cardiac Diet-2gna,Lofat,Lochol (03/09/25 Dinner) Pt Request For Service (03/09/25 13:36) Condition: Critical (03/09/25 13:36) Enoxaparin Sodium (Lovenox) (03/10/25 10:00) Acetaminophen Tablet (Tylenol Tablet) (03/09/25 13:45) Morphine Sulfate Injection (03/09/25 13:45) Nitroglycerin Sublingual (Ntrostat Subli (03/09/25 13:45) Morphine Sulfate Injection (03/09/25 13:45) Stat Ekg For Chest Pain (03/09/25 13:36) Notify Of Changes From Base (03/09/25 13:36) Neurourologist For 24 Hours (03/09/25 13:36) Emergency Dysrhythmia Protocol (03/09/25 13:36) Rhythm Strips Once Every Shift (03/09/25 13:36) Oxygen By Nasal Cannula (03/09/25 13:36) Glucose Blood (Accu-Chek Comfort Curve T (03/09/25 17:00) Mild Sliding Scale (03/09/25 17:00) Dextrose 50% Syringe (03/09/25 13:45) Dobutamine Drip (03/09/25 13:45) Bumetanide Injection (Bumex Injection) (03/09/25 16:00) Aspirin Enteric Coated Tablet (Ecotrin E (03/10/25 10:00) Atorvastatin (Lipitor) (03/09/25 22:00) Clopidogrel Bisulfate (Plavix) (03/10/25 10:00) Insulin Lantus (Glargine) (Lantus) (03/09/25 22:00) Ivabradine (Corlanor) (03/09/25 22:00) Lorazepam Tablet (Ativan Tablet) (03/09/25 22:00) Sacubitril-Valsartan (Entresto 24-26 Mg (03/10/25 10:00) Tamsulosin Hydrochloride (Flomax) (03/09/25 22:00) (Nf) Cetirizine Hcl (Zyrtec Allergy) (03/10/25 10:00) (Nf) Magnesium Oxide (03/10/25 10:00) (Nf) Pramipexole Dihydrochloride (Mirape (03/10/25 10:00) Vital Signs Date Time Temp Pulse Resp B/P (MAP) Pulse Ox O2 Delivery O2 Flow Rate FiO2 03/09/25 13:15 74 15 101/50 (67) 99 03/09/25 13:00 74 14 90/51 (64) 98 03/09/25 12:45 72 14 83/44 (57) 99 03/09/25 12:30 74 16 94/45 (61) 99 03/09/25 12:15 74 20 76/43 (54) 100 03/09/25 12:00 75 21 94/49 (64) 100 03/09/25 12:00 75 03/09/25 11:45 74 22 83/44 (57) 100 03/09/25 11:30 71 18 94/48 (63) 100 03/09/25 11:15 74 21 82/35 (51) 99 03/09/25 11:00 73 15 83/34 (50) 99 03/09/25 10:45 69 16 77/32 (47) 97 03/09/25 10:30 83/34 03/09/25 10:30 72 15 78/26 (43) 97 03/09/25 10:15 73 15 81/30 (47) 98 03/09/25 10:00 74 15 76/27 (43) 97 03/09/25 09:27 97.8 85 16 99/38 (58) 99 97.8 03/09/25 09:27 85 16 99 Room Air* 0 21 03/09/25 09:21 88 03/09/25 09:15 98.6 89 16 82/29 95 98.6 Laboratory Tests Test 03/09/25 09:30 Lactic Acid Level 1.3 mmol/L (0.4-2.0) White Blood Count 9.8 10^3/uL (4.4-10.8) Medications Medications Dose Ordered Sig/Meenu Route Start Time Stop Time Status Last Admin Dose Admin Norepinephrine Bitartrate 250 ml @ 3.75 mls/hr Q24H IV 03/09/25 10:30 03/09/25 10:30 3.75 MLS/HR Sodium Chloride 1,000 ml @ 50 mls/hr Q20H ONCE IV 03/09/25 09:30 03/10/25 05:29 03/09/25 09:50 50 MLS/HR Assessment/Plan Assessment/Plan Assessment: GI bleed, CHF exacerbation, Severe proctocolitis, possible neoplasm, Anemia, Hyperglycemia, Acute on chronic kidney disease, Diabetes, Plan: Admit to ICU, GI consult, Cardiology consult, Dobutamine drip at set rate, Vasopressors as needed, Transfuse 1 unit PRBC, give bumex after infusion, Manage/Monitor H&H closely, A1c, Fall precautions, Physical therapy evaluation, Accu checks AC&HS with sliding scale, Home medications reconciled, Plan discussed with: Patient My Orders Orders - SARITA WILLSON [employer]ER Procedure Category Date Status Time Admit ADMIT 03/09/25 Transmitted 13:36 Code Status CODE 03/09/25 Transmitted 13:36 Hydrocodone-Acet PHA 03/09/25 Logged 5/325mg Tab (Gerlach 13:45 Ondansetron Hcl PHA 03/09/25 Logged (Zofran) 13:45 Docusate Sodium PHA 03/09/25 Logged Capsule (Colace 13:45 Fall Risk Precautions [facility] 03/09/[address] 13:36 Complete Blood Count LAB 03/10/25 Verified 04:00 Comprehensive LAB 03/10/25 Verified Metabolic Panel 04:00 Cardiac DIET 03/09/25 Transmitted Diet-2gna,Lofat,Lochol Dinner Pt Request For Service PT 03/09/25 Logged 13:36 Condition: Critical [facility] 03/09/25 In Process 13:36 Enoxaparin Sodium [facility] 03/10/25 Logged (Lovenox) 10:00 Acetaminophen Tablet [facility] 03/09/25 Logged (Tylenol Tablet) 13:45 Morphine Sulfate [facility] 03/09/25 Logged Injection 13:45 Nitroglycerin [facility] 03/09/25 Logged Sublingual (Ntrostat 13:45 Morphine Sulfate PHA 03/09/25 Logged Injection 13:45 Stat Ekg For Chest [facility] 03/09/25 In Process Pain 13:36 Notify Of Changes [facility] 03/09/25 In Process From Base 13:36 Neurourologist For [facility] 03/09/25 In Process 24 Hours 13:36 Emergency Dysrhythmia [facility] 03/09/25 In Process Protocol 13:36 Rhythm Strips Once [facility] 03/09/25 In Process Every Shift 13:36 Oxygen By Nasal RT 03/09/25 Transmitted Cannula 13:36 Glucose Blood [facility] 03/09/25 Logged (Accu-Chek Comfort 17:00 Mild Sliding Scale PHA 03/09/25 Transmitted 17:00 Dextrose 50% Syringe PHA 03/09/25 Transmitted 13:45 Dobutamine Drip PHA 03/09/25 Transmitted 13:45 Bumetanide Injection [facility] 03/09/25 Transmitted (Bumex Injection) 16:00 Aspirin Enteric PHA 03/10/25 Transmitted Coated Tablet 10:00 Atorvastatin (Lipitor) PHA 03/09/25 Transmitted 22:00 Clopidogrel Bisulfate PHA 03/10/25 Transmitted (Plavix) 10:00 Insulin Lantus PHA 03/09/25 Transmitted (Glargine) (Lantus) 22:00 Ivabradine (Corlanor) PHA 03/09/25 Transmitted 22:00 Lorazepam Tablet PHA 03/09/25 Transmitted (Ativan Tablet) 22:00 Sacubitril-Valsartan PHA 03/10/25 Transmitted (Entresto 24-26 Mg 10:00 Tamsulosin PHA 03/09/25 Transmitted Hydrochloride (Flomax) 22:00 (Nf) Cetirizine Hcl PHA 03/10/25 Transmitted (Zyrtec Allergy) 10:00 (Nf) Magnesium Oxide PHA 03/10/25 Transmitted 10:00 (Nf) Pramipexole PHA 03/10/25 Transmitted Dihydrochloride 10:00 Date of Service: Mar 09, 2025 Billing Provider: SARITA WILLSON Common Visit Codes: [id number] INP/OBS CARE (HIGH) SARITA WILLSON Mar 09, 2025 14:36
[2025-03-09] MEDS: DOBUTamine 1000MCG/ML 250 ML IV SCH (14:50)
--- NOTE | 2025-03-09 15:43 | DVHCONRES ---
Family History: FH: heart disease G8 BROTHER G8 BROTHER G8 BROTHER G8 BROTHER G8 SISTER G8 SISTER G8 SISTER G8 SISTER G8 SISTER Allergies: Coded Allergies: NO KNOWN ALLERGIES (Verified , 11/11/24) Home Meds Reported Medications Aspirin (Aspirin) 81 Mg Tab, 1 TAB PO DAILY for HEART ATTACK PREVENTION 11/12/24 Clopidogrel Bisulfate (Plavix) 75 Mg Tab, 1 TAB PO DAILY for HEART DISEASE 06/22/24 Lorazepam (ATIVAN TABLET) 0.5 Mg Tb, 1 TAB PO HS for ANXIETY 06/22/24 Insulin Glargine (Lantus) 100 Unit/Ml Inj, 10 UNIT SC BID for DIABETES 06/22/24 Bumetanide (Bumex) 2 Mg Tab, 1 TAB PO DAILY for EDEMA 01/27/24 Pramipexole Dihydrochloride (Mirapex) 0.5 Mg Tab, 1 TAB PO DAILY for PARKINSON'S DISEASE 09/28/22 Ivabradine Hydrochloride (Corlanor) 5 Mg Tab, 1 TAB PO BID for HEART FAILURE 09/28/22 Sacubitril-Valsartan (Entresto 24-26 mg) 1 Tab Tab, 1 TAB PO DAILY for HYPERTENSION 09/28/22 Magnesium Oxide (MAGNESIUM OXIDE) 400 Mg Tab, 1 TAB PO DAILY for SUPPLEMENT 09/28/22 Cetirizine Hcl (ZYRTEC ALLERGY) 10 Mg Tab, 1 TAB PO DAILY for ALLERGIES 02/20/21 Potassium Chloride (Klor-Con M10) 10 Meq Tab, 1 TAB PO DAILY for SUPPLEMENT 02/20/21 Tamsulosin Hcl (Flomax) 0.4 Mg Cap, 1 CAP PO BID for BPH 02/20/21 Atorvastatin Calcium (Lipitor) 20 Mg Tab, 1 TAB PO HS for HIGH CHOLESTEROL 08/15/10 Current Medications Current Medications Medications (Trade) Dose Ordered Sig/Meenu Route PRN Reason Start Time Stop Time Status Last Admin Norepinephrine Bitartrate 250 ml @ 3.75 mls/hr Q24H IV 03/09/25 10:30 03/09/25 10:30 Acetaminophen/ Hydrocodone Bitart (Handley 5/325MG Tab) 1 tab Q4HP PRN PO MODERATE PAIN (4-6 PAIN SCALE) 03/09/25 13:45 Ondansetron HCl (Zofran) 4 mg Q4HP PRN IV NAUSEA / VOMITING 03/09/25 13:45 Docusate Sodium (Colace Capsule) 100 mg BIDPRN PRN PO FOR CONSTIPATION 03/09/25 13:45 Enoxaparin Sodium (Lovenox) 30 mg DAILY SC 03/10/25 10:00 Acetaminophen (Tylenol Tablet) 650 mg Q6HP PRN PO PAIN SCALE 1-3 OR TEMP>100.4 03/09/25 13:45 Morphine Sulfate 2 mg Q4HPRN PRN IV SEVERE PAIN (7-10 PAIN SCALE) 03/09/25 13:45 Nitroglycerin (Ntrostat Sublingual) 0.4 mg Q5MINP PRN SL FOR CHEST PAIN 03/09/25 13:45 Morphine Sulfate 2 mg Q30M PRN IV FOR CHEST PAIN 03/09/25 13:45 Diagnostic Test (Pha) (Accu-Chek Comfort Curve T) 1 strip ACHS 03/09/25 17:00 Insulin Human Regular (InsuLIN R) ACHS SC 03/09/25 17:00 Dextrose 50 ml UD PRN IV Blood Sugar LESS THAN 60 03/09/25 13:45 Dobutamine HCl/ Dextrose 250 ml @ 8.7 mls/hr Q24H IV 03/09/25 13:45 03/09/25 14:50 Aspirin (Ecotrin Enteric Coated Tablet) 81 mg DAILY PO 03/10/25 10:00 Atorvastatin Calcium (Lipitor) 20 mg HS PO 03/09/25 22:00 Clopidogrel Bisulfate (Plavix) 75 mg DAILY PO 03/10/25 10:00 Insulin Glargine (Lantus) 10 units BID SC 03/09/25 22:00 Ivabradine (Corlanor) 5 mg BID PO 03/09/25 22:00 Lorazepam (Ativan Tablet) 0.5 mg HS PO 03/09/25 22:00 Sacubitril/ Valsartan (Entresto 24-26 Mg tab) 1 tab DAILY PO 03/10/25 10:00 Tamsulosin HCl (Flomax) 0.4 mg BID PO 03/09/25 22:00 Patient Own Medication 1 tab DAILY PO 03/10/25 10:00 Magnesium Oxide (Mag-Ox Tablet) 400 mg DAILY PO 03/10/25 10:00 Pramipexole Dihydrochloride (Mirapex Tablet) 0.5 mg DAILY PO 03/10/25 10:00 Vital Signs Vital Signs Date Time Temp Pulse Resp B/P (MAP) Pulse Ox O2 Delivery O2 Flow Rate FiO2 03/09/25 14:50 129/48 03/09/25 14:20 98.9 77 18 98.9 03/09/25 13:15 99 03/09/25 09:27 Room Air* 0 21 Labs/Diagnostic Data Labs Test 03/09/25 09:57 03/09/25 09:30 Range/Units POC Glucose 211 H 70-106 mg/dl White Blood Count 9.8 4.4-10.8 10^3/uL Red Blood Count 2.88 L 4.5-5.90 10^6/uL Hemoglobin 9.3 L 13.5-17.5 g/dL Hematocrit 26.6 L 41.0-53.0 % Mean Corpuscular Volume 92.5 80.0-100.0 fL Mean Corpuscular Hemoglobin 32.3 H 28.0-32.0 pg Mean Corpuscular Hemoglobin Concent 35.0 32.0-36.0 g/dL Red Cell Distribution Width 18.3 H 11.8-14.3 % Platelet Count 111 L 140-450 10^3/uL Mean Platelet Volume 7.7 6.9-10.8 fL Neutrophils (%) (Auto) 84.2 H 37.0-80.0 % Lymphocytes (%) (Auto) 10.3 10.0-50.0 % Monocytes (%) (Auto) 5.0 0.0-12.0 % Eosinophils (%) (Auto) 0.0 0.0-7.0 % Basophils (%) (Auto) 0.5 0.0-2.0 % Neutrophils # (Auto) 8.3 1.6-8.6 10 ^3/uL Lymphocytes # (Auto) 1.0 0.4-5.4 10 ^3/uL Monocytes # (Auto) 0.5 0-1.3 10 ^3/uL Eosinophils # (Auto) 0 0-0.8 10 ^3/uL Basophils # (Auto) 0 0-0.2 10 ^3/uL Nucleated Red Blood Cells 0.0 % Prothrombin Time 13.6 H 9.3-11.8 sec Prothrombin Time INR 1.32 H 0.9-1.15 Activated Partial Thromboplast Time 28.5 24.5-34.5 SEC Sodium Level 133 L 136-145 mmol/L Potassium Level 4.1 3.5-5.1 mmol/L Chloride Level 99 98-107 mmol/L Carbon Dioxide Level 23 20-31 mmol/L Anion Gap 11 5-15 Blood Urea Nitrogen 51 H 9-23 mg/dL Creatinine 2.29 H 0.700-1.30 mg/dL Glomerular Filtration Rate Calc 27 >90 mL/min BUN/Creatinine Ratio 22.3 H 10.0-20.0 Serum Glucose 185 H 74-106 mg/dL Lactic Acid Level 1.3 0.4-2.0 mmol/L Calcium Level 8.6 L 8.7-10.4 mg/dL Total Bilirubin 1.1 H 0.2-1.0 mg/dL Aspartate Amino Transferase (AST) 37 13-40 U/L Alanine Aminotransferase (ALT) 21 7-40 U/L Alkaline Phosphatase 57 46-116 U/L B-Type Natriuretic Peptide 2751.63 0-100 pg/mL Total Protein 6.8 5.7-8.2 g/dL Albumin 3.7 3.2-4.8 g/dL ALCIDES RIBERA Mar 09, 2025 15:43
[2025-03-09] MEDS: BUMETANIDE 1mg/4ml VIAL (0.25mg/ml) IV ONE (16:11)
--- NOTE | 2025-03-09 16:18 | ECG ---
[facility] Test Date: 2025-03-09 Test Time: 16:12:48 Pat Name: GEOVANNA KAUR Department: Room: 0206T Gender: M Corporate Coordinator: MATTHEW : 1935 Requested By: ABNER JORDAN Order Number: [id number] Reading MD: Tomi Moreno Measurements Intervals [facility] Rate: 94 P: 91 WA: 132 QRS: 261 QRSD: 145 T: 89 QT: 456 QTc: 571 Interpretive Statements Ventricular-paced complexes No further analysis attempted due to paced rhythm Electronically Signed On 03-16-2025 19:02:03 PDT by Tomi Moreno Please click the below link to view image of tracing.
[2025-03-09] MEDS: ACCU-CHEK COMFORT CURVE STRIP VI SCH (17:23)
[2025-03-09] MEDS: InsuLIN REG 1unit/0.01ml Soln (100units/ml) SC SCH (17:23)
[2025-03-09 18:46] LABS: Urine Protein, UAD Negative (Negative)
--- NOTE | 2025-03-09 20:49 | DVHINCON2 ---
Date of service: Mar 09, 2025 Referring Physician Mariela Han Reason for Consultation Rectal bleeding History of Present Illness Tank Amador is an 89-year-old male with a past medical history of CHF, diabetes, and anemia, who came to the hospital due to rectal bleeding and generalized weakness. Patient states he has been having rectal bleeding for 3 days. He was seen by Dr. Hope and told to come to the hospital. Patient has history of anemia requiring transfusion. He was last transfused with 2 units of PRBC on 02/19/2025. Patient is seen by Dr. Hope at the CHF clinic and receives dobutamine infusion for his CHF. Per the patient's son, the patient usually gets around well with his walker. This last week he has been more sedentary due to generalized weakness. Patient was seen in ER bed nine. He is resting comfortably and has not had any further rectal bleeding since presentation. Patient is hungry and wants to eat. Patient has been taking Plavix every other day and also stays on aspirin. He had previous history of bleeding and did undergo a colonoscopy with a gastro group about a year ago. Patient stated he was found to have a possible AVM that was cauterized at that time. He denies any nausea vomiting hematemesis or significant abdominal pain Past Medical History Cardiovascular: CHF, Other (AICD) Heme/Onc: Anemia NOS Endocrine: Diabetes Past Surgical History CABG 1996 AICD Family History: FH: heart disease G8 BROTHER G8 BROTHER G8 BROTHER G8 BROTHER G8 SISTER G8 SISTER G8 SISTER G8 SISTER G8 SISTER Social History Smoke: No ALCOHOL: none Drugs: None Allergies: Coded Allergies: NO KNOWN ALLERGIES (Verified , 11/11/24) Home Meds Reported Medications Aspirin (Aspirin) 81 Mg Tab, 1 TAB PO DAILY for HEART ATTACK PREVENTION 11/12/24 Clopidogrel Bisulfate (Plavix) 75 Mg Tab, 1 TAB PO DAILY for HEART DISEASE 06/22/24 Lorazepam (ATIVAN TABLET) 0.5 Mg Tb, 1 TAB PO HS for ANXIETY 06/22/24 Insulin Glargine (Lantus) 100 Unit/Ml Inj, 10 UNIT SC BID for DIABETES 06/22/24 Bumetanide (Bumex) 2 Mg Tab, 1 TAB PO DAILY for EDEMA 01/27/24 Pramipexole Dihydrochloride (Mirapex) 0.5 Mg Tab, 1 TAB PO DAILY for PARKINSON'S DISEASE 09/28/22 Ivabradine Hydrochloride (Corlanor) 5 Mg Tab, 1 TAB PO BID for HEART FAILURE 09/28/22 Sacubitril-Valsartan (Entresto 24-26 mg) 1 Tab Tab, 1 TAB PO DAILY for HYPERTENSION 09/28/22 Magnesium Oxide (MAGNESIUM OXIDE) 400 Mg Tab, 1 TAB PO DAILY for SUPPLEMENT 09/28/22 Cetirizine Hcl (ZYRTEC ALLERGY) 10 Mg Tab, 1 TAB PO DAILY for ALLERGIES 02/20/21 Potassium Chloride (Klor-Con M10) 10 Meq Tab, 1 TAB PO DAILY for SUPPLEMENT 02/20/21 Tamsulosin Hcl (Flomax) 0.4 Mg Cap, 1 CAP PO BID for BPH 02/20/21 Atorvastatin Calcium (Lipitor) 20 Mg Tab, 1 TAB PO HS for HIGH CHOLESTEROL 08/15/10 Current Medications Current Medications Medications (Trade) Dose Ordered Sig/Meenu Route PRN Reason Start Time Stop Time Status Last Admin Norepinephrine Bitartrate 250 ml @ 3.75 mls/hr Q24H IV 03/09/25 10:30 03/09/25 11:00 Acetaminophen/ Hydrocodone Bitart ([place] 5/325MG Tab) 1 tab Q4HP PRN PO MODERATE PAIN (4-6 PAIN SCALE) 03/09/25 13:45 Ondansetron HCl (Zofran) 4 mg Q4HP PRN IV NAUSEA / VOMITING 03/09/25 13:45 Docusate Sodium (Colace Capsule) 100 mg BIDPRN PRN PO FOR CONSTIPATION 03/09/25 13:45 Enoxaparin Sodium (Lovenox) 30 mg DAILY SC 03/10/25 10:00 Acetaminophen (Tylenol Tablet) 650 mg Q6HP PRN PO PAIN SCALE 1-3 OR TEMP>100.4 03/09/25 13:45 Morphine Sulfate 2 mg Q4HPRN PRN IV SEVERE PAIN (7-10 PAIN SCALE) 03/09/25 13:45 Nitroglycerin (Ntrostat Sublingual) 0.4 mg Q5MINP PRN SL FOR CHEST PAIN 03/09/25 13:45 Morphine Sulfate 2 mg Q30M PRN IV FOR CHEST PAIN 03/09/25 13:45 Diagnostic Test (Pha) (Accu-Chek Comfort Curve T) 1 strip ACHS 03/09/25 17:00 03/09/25 17:23 Insulin Human Regular (InsuLIN R) ACHS SC 03/09/25 17:00 03/09/25 17:23 Dextrose 50 ml UD PRN IV Blood Sugar LESS THAN 60 03/09/25 13:45 Dobutamine HCl/ Dextrose 250 ml @ 8.7 mls/hr Q24H IV 03/09/25 13:45 03/09/25 14:50 Aspirin (Ecotrin Enteric Coated Tablet) 81 mg DAILY PO 03/10/25 10:00 Atorvastatin Calcium (Lipitor) 20 mg HS PO 03/09/25 22:00 Clopidogrel Bisulfate (Plavix) 75 mg DAILY PO 03/10/25 10:00 Insulin Glargine (Lantus) 10 units BID SC 03/09/25 22:00 Ivabradine (Corlanor) 5 mg BID PO 03/09/25 22:00 Lorazepam (Ativan Tablet) 0.5 mg HS PO 03/09/25 22:00 Sacubitril/ Valsartan (Entresto 24-26 Mg tab) 1 tab DAILY PO 03/10/25 10:00 Tamsulosin HCl (Flomax) 0.4 mg BID PO 03/09/25 22:00 Patient Own Medication 1 tab DAILY PO 03/10/25 10:00 Magnesium Oxide (Mag-Ox Tablet) 400 mg DAILY PO 03/10/25 10:00 Pramipexole Dihydrochloride (Mirapex Tablet) 0.5 mg DAILY PO 03/10/25 10:00 Vital Signs Vital Signs Date Time Temp Pulse Resp B/P (MAP) Pulse Ox O2 Delivery O2 Flow Rate FiO2 03/09/25 19:20 118 14 98 Room Air* 0 21 03/09/25 18:50 117/52 03/09/25 16:30 97.8 97.8 Physical Exam General Appearance: Alert, Oriented X3, Cooperative, No acute distress HEENT: Atraumatic, Other (Mucous membr dry) Cardiovascular: Regular rate, Normal S1, Normal S2, Other (On vasopressors) Abdominal: Normal bowel sounds, Soft, No tenderness Extremities: No cyanosis, No edema, Normal pulses Skin: No rashes, No breakdown Neuro: Normal speech, Other (Weakness, unable to ambulate at this time) Psych/Mental Status: Mental status NL, Mood NL Labs/Diagnostic Data Labs Test 03/09/25 17:18 03/09/25 16:50 03/09/25 12:34 03/09/25 09:30 Range/Units POC Glucose 197 H 70-106 mg/dl Urine Color Light-yellow Yellow Urine Clarity Clear Clear Urine pH 5.0 5.0-9.0 Urine Specific [place] 1.011 1.001-1.035 Urine Protein Negative Negative Urine Ketones Negative Negative Urine Blood Negative Negative /uL Urine Nitrite Negative Negative Urine Bilirubin Negative Negative Urine Urobilinogen Normal Negative mg/dL Urine Leukocyte Esterase Negative Negative /uL Urine RBC <1 0 - 3 /hpf Urine Microscopic WBC < 1 0-3 /HPF Urine Squamous Epithelial Cells None seen <5 /hpf Urine Bacteria None seen None Seen /hpf Urine Hyaline Casts Few 0 - 2 /lpf Urine Glucose Normal Normal mg/dL White Blood Count 9.8 4.4-10.8 10^3/uL Red Blood Count 2.88 L 4.5-5.90 10^6/uL Hemoglobin 9.3 L 13.5-17.5 g/dL Hematocrit 26.6 L 41.0-53.0 % Mean Corpuscular Volume 92.5 80.0-100.0 fL Mean Corpuscular Hemoglobin 32.3 H 28.0-32.0 pg Mean Corpuscular Hemoglobin Concent 35.0 32.0-36.0 g/dL Red Cell Distribution Width 18.3 H 11.8-14.3 % Platelet Count 111 L 140-450 10^3/uL Mean Platelet Volume 7.7 6.9-10.8 fL Neutrophils (%) (Auto) 84.2 H 37.0-80.0 % Lymphocytes (%) (Auto) 10.3 10.0-50.0 % Monocytes (%) (Auto) 5.0 0.0-12.0 % Eosinophils (%) (Auto) 0.0 0.0-7.0 % Basophils (%) (Auto) 0.5 0.0-2.0 % Neutrophils # (Auto) 8.3 1.6-8.6 10 ^3/uL Lymphocytes # (Auto) 1.0 0.4-5.4 10 ^3/uL Monocytes # (Auto) 0.5 0-1.3 10 ^3/uL Eosinophils # (Auto) 0 0-0.8 10 ^3/uL Basophils # (Auto) 0 0-0.2 10 ^3/uL Nucleated Red Blood Cells 0.0 % Prothrombin Time 13.6 H 9.3-11.8 sec Prothrombin Time INR 1.32 H 0.9-1.15 Activated Partial Thromboplast Time 28.5 24.5-34.5 SEC Sodium Level 133 L 136-145 mmol/L Potassium Level 4.1 3.5-5.1 mmol/L Chloride Level 99 98-107 mmol/L Carbon Dioxide Level 23 20-31 mmol/L Anion Gap 11 5-15 Blood Urea Nitrogen 51 H 9-23 mg/dL Creatinine 2.29 H 0.700-1.30 mg/dL Glomerular Filtration Rate Calc 27 >90 mL/min BUN/Creatinine Ratio 22.3 H 10.0-20.0 Serum Glucose 185 H 74-106 mg/dL Lactic Acid Level 1.3 0.4-2.0 mmol/L Calcium Level 8.6 L 8.7-10.4 mg/dL Total Bilirubin 1.1 H 0.2-1.0 mg/dL Aspartate Amino Transferase (AST) 37 13-40 U/L Alanine Aminotransferase (ALT) 21 7-40 U/L Alkaline Phosphatase 57 46-116 U/L B-Type Natriuretic Peptide 2751.63 0-100 pg/mL Total Protein 6.8 5.7-8.2 g/dL Albumin 3.7 3.2-4.8 g/dL CT SCAN ABD PELVIS IMPRESSION: 1. Marked mucosal thickening of the rectosigmoid colon, consistent with severe proctocolitis. Neoplasm is not excluded. 2. Cholelithiasis. 3. Small bilateral pleural effusions. 4. Cardiomegaly. 5. 2.5 cm infrarenal abdominal aortic aneurysm. Problems(with codes): (1) Proctocolitis (2) GI bleed (3) Severe anemia (4) CHF (congestive heart failure) Plan/Recommendation Assessment plan 89-year-old male with rectal bleeding likely related to proctosigmoiditis This may be related to stercoral colitis from constipation He reports a negative colonoscopy about a year ago which did not show any malignancy Continue to monitor the patient's labs, currently he is on a carb controlled diet Stool softeners, stool studies; stool for occult blood, stool for WBC IV Flagyl; conservative approach if GI bleeding resolves Cardiology follow up and CHF stabilization Once cardiac cleared a possible sigmoidoscopy will be considered Review records from gastro group if available Plan discussed with: Patient, Spouse ERLIN JEAN MD Mar 09, 2025 20:49
[2025-03-09] MEDS: LORazepam 0.5 MG TAB PO SCH (20:57)
[2025-03-09] MEDS: IVABRADINE 5 MG TAB PO SCH (20:57)
[2025-03-09] MEDS: TAMSULOSIN HYDROCHLORIDE 0.4 MG CAP PO SCH (20:57)
[2025-03-09] MEDS: INSULIN LANTUS (GLARGINE) 1 /0.01ml (100units/ml) SC SCH (20:58)
[2025-03-09] MEDS: ATORVASTATIN 20 MG TAB PO SCH (20:58)
[2025-03-10] VITALS (33 sets, daily range): BP systolic 97–115; BP diastolic 34–51; PULSE 69–96; RESP 12–25; TEMP 98.8; O2SAT 95–98
[2025-03-10] MEDS: PANTOPRAZOLE 40 MG TAB PO SCH (04:19)
[2025-03-10 04:55] LABS: Hematocrit 27.1 % (41.0-53.0); Hemoglobin 9.8 g/dL (13.5-17.5); Mean Corpuscular Hemoglobin 32.9 pg (28.0-32.0); Mean Corpuscular Volume 91.6 fL (80.0-100.0); Nucleated Red Blood Cells % 0.0 %
[2025-03-10 05:18] LABS: Alanine Aminotransferase 15 U/L (7-40); Albumin 3.3 g/dL (3.2-4.8); Alkaline Phosphatase 53 U/L (46-116); Anion Gap 12 (5-15); BUN/Creatinine Ratio 22.0 (10.0-20.0); Carbon Dioxide 23 mmol/L (20-31); Chloride 102 mmol/L (98-107); Sodium 137 mmol/L (136-145); Total Protein 6.4 g/dL (5.7-8.2)
[2025-03-10 05:26] LABS: Bilirubin, Total 1.3 mg/dL (0.2-1.0); Blood Urea Nitrogen 37 mg/dL (9-23); Calcium 8.1 mg/dL (8.7-10.4); Glucose 134 mg/dL (74-106); Potassium 3.3 mmol/L (3.5-5.1)
--- NOTE | 2025-03-10 05:32 | ECG ---
[facility] Test Date: 2025-03-09 Test Time: 19:42:24 Pat Name: GEOVANNA KAUR Department: Room: 0206T Gender: M Glaciologist: KISHA : 1935 Requested By: SARITA WILLSON Order Number: [id number] Reading MD: Tomi Moreno Measurements Intervals [place] Rate: 118 P: 0 TN: 40 QRS: 232 QRSD: 131 T: 77 QT: 345 QTc: 484 Interpretive Statements Ventricular-paced complexes No further analysis attempted due to paced rhythm Electronically Signed On 03-16-2025 19:04:53 PDT by Tomi Moreno Please click the below link to view image of tracing.
[2025-03-10] MEDS: POTASSIUM CHL 20MEQ/100ML 100 ML IV ONE (08:04)
[2025-03-10] MEDS: DOCUSATE SOD 100 MG CAP PO SCH (09:59)
[2025-03-10] MEDS: ENOXAPARIN SOD 30 MG/0.3 ML SYRINGE SC SCH (10:00)
[2025-03-10] MEDS ORDERED: ASPirin-EC 81 mg tab PO SCH (10:00)
[2025-03-10] MEDS: [UNRECOGNIZED DRUG - REMARK] PO SCH (10:00)
[2025-03-10] MEDS: CLOPIDOGREL BISULFATE 75 MG TAB PO SCH (10:00)
[2025-03-10] MEDS: PRAMIPEXOLE DIHYDROCHLORIDE MO 0.25 MG TAB PO SCH (10:17)
[2025-03-10] MEDS: SACUBITRIL-VALSARTAN 24mg/26mg TAB PO SCH (10:18)
[2025-03-10] MEDS: MAGNESIUM OXIDE 400 MG TAB PO SCH (10:19)
--- NOTE | 2025-03-10 11:17 | DVHPN2 ---
Progress Note Date Seen: Mar 10, 2025 Resident Creating Document: ALCIDES RIBERA RESIDENT Medical Necessity Reason Pt with a Central, PICC or Fol: Yes Subjective Review of Systems Patient seen and examined at bedside Remains AO times 2-3 Three bowel movements today with red blood Remains on dobutamine drip at 2.5 Objective vital signs Vital Sign Date Time Temp Pulse Resp B/P (MAP) Pulse Ox O2 Delivery O2 Flow Rate FiO2 03/10/25 10:21 113/37 03/10/25 08:00 78 03/10/25 07:41 98.1 12 97 98.1 03/10/25 07:41 Room Air* 0 21 Total Intake and Output 03/09/25 03/09/25 03/10/25 15:00 23:00 07:00 Intake Total 360.1750 ml 1624.2375 ml 460.9 ml Output Total 500 ml 1350 ml 1100 ml Balance -139.8250 ml 274.2375 ml -639.1 ml medications Current Medications Medications Dose Ordered Sig/Meenu Route Start Time Stop Time Status Last Admin Dose Admin Norepinephrine Bitartrate 250 ml @ 3.75 mls/hr Q24H IV 03/09/25 10:30 03/09/25 11:00 3.75 MLS/HR Acetaminophen/ Hydrocodone Bitart 1 tab Q4HP PRN PO 03/09/25 13:45 Ondansetron HCl 4 mg Q4HP PRN IV 03/09/25 13:45 Docusate Sodium 100 mg BIDPRN PRN PO 03/09/25 13:45 Enoxaparin Sodium 30 mg DAILY SC 03/10/25 10:00 Acetaminophen 650 mg Q6HP PRN PO 03/09/25 13:45 Morphine Sulfate 2 mg Q4HPRN PRN IV 03/09/25 13:45 Nitroglycerin 0.4 mg Q5MINP PRN SL 03/09/25 13:45 Morphine Sulfate 2 mg Q30M PRN IV 03/09/25 13:45 Diagnostic Test (Pha) 1 strip ACHS 03/09/25 17:00 03/10/25 04:19 1 STRIP Insulin Human Regular ACHS SC 03/09/25 17:00 03/09/25 17:23 3 UNITS Dextrose 50 ml UD PRN IV 03/09/25 13:45 Dobutamine HCl/ Dextrose 250 ml @ 8.7 mls/hr Q24H IV 03/09/25 13:45 03/09/25 14:50 8.7 MLS/HR Atorvastatin Calcium 20 mg HS PO 03/09/25 22:00 Clopidogrel Bisulfate 75 mg DAILY PO 03/10/25 10:00 Insulin Glargine 10 units BID SC 03/09/25 22:00 Ivabradine 5 mg BID PO 03/09/25 22:00 03/10/25 10:19 5 MG Lorazepam 0.5 mg HS PO 03/09/25 22:00 Sacubitril/ Valsartan 1 tab DAILY PO 03/10/25 10:00 03/10/25 10:18 1 TAB Tamsulosin HCl 0.4 mg BID PO 03/09/25 22:00 03/10/25 10:19 0.4 MG Patient Own Medication 1 tab DAILY PO 03/10/25 10:00 Magnesium Oxide 400 mg DAILY PO 03/10/25 10:00 03/10/25 10:19 400 MG Pramipexole Dihydrochloride 0.5 mg DAILY PO 03/10/25 10:00 03/10/25 10:17 0.5 MG Metronidazole 100 ml @ 100 mls/hr Q8HR IV 03/09/25 22:00 03/10/25 04:32 100 MLS/HR Docusate Sodium 100 mg DAILY PO 03/10/25 10:00 Pantoprazole Sodium 40 mg DAILY@0600 PO 03/10/25 06:00 Examination General Appearance: Cooperative. Well developed. Pulmonary/Respiratory: Bilateral air entry. Crackles Cardiovascular/Chest: Regular rate and rhythm. Abdominal Exam: Normal bowel sounds. Soft. normal abdomen, no visible veins, Nontender. No hepatospenomegaly. No masses Neuro/Mental Status: A&O x2-3. Coherent. laboratory and microbiology Laboratory Tests 03/10/25 03:47 Test 03/10/25 03:47 Range/Units Serum Glucose 134 H 74-106 mg/dL Microbiology Date/Time Source Procedure Growth Status 03/09/25 09:30 Blood Blood Culture - Preliminary NO GROWTH AFTER 24 HOURS OF INCUBATION. Resulted Labs and/or images reviewed: Labs reviewed by me, Image(s) reviewed by me Problem List/Assessment/Plan Problem List/Assessment/Plan Acute severe proctocolitis/proctosigmoiditis ? Stercoral colitis Lower GI bleed due to above Anemia, likely of chronic disease with MCV 91.6 Acute on chronic Heart failure with reduced ejection fraction less than 25% in exacerbation Severe tricuspid regurgitation Severe mitral regurgitation S/p AICD Plan: Awaiting stool studies IV antibiotics Conservative management recommended if GI bleeding resolves Cardiology follow up and CHF stabilization Possible sigmoidoscopy inpatient versus outpatient Advance diet as tolerated Request records from gastro group if possible, per patient last colonoscopy 1 year ago Thank you so much for the opportunity to consult on your patient. GI team will follow the patient. In case of any questions or concerns please feel free to reach out. Plan discussed with Dr. Harris Plan discussed with: Other (RN) CC Plasma Assessment Blood Product Administration S: [id number] ALCIDES RIBERA RESIDENT Mar 10, 2025 11:17
--- NOTE | 2025-03-10 13:53 | DVHPN2 ---
Subjective 89-year-old male with a history of CHF and diabetes and anemia who takes aspirin and Plavix at home came with rectal bleeding for 3 days He was hypotensive and required Levophed but it is off this morning He was transfused 1 unit of RBCs Changes from previous H/P or p: Changes Eyes: No Pain, No Vision change, No Conjunctivae inflammation, No Eyelid inflammation, No Other, No Redness ENT: No Ear pain, No Ear discharge, No Nose pain, No Nose discharge, No Nose congestion, No Mouth pain, No Mouth swelling, No Throat pain, No Throat swelling, No Other Cardiovascular: No Chest Pain, No Palpitations, No Orthopnea, No Paroxysmal Noc. Dyspnea, No Edema, No Lt Headedness, No Other Respiratory: No Cough, No Dry, No Shortness of breath, No SOB with excertion, No Wheezing, No Hemoptysis, No Pleuritic Pain, No Sputum, No Other Gastrointestinal: No Nausea, No Vomiting, No Abdominal Pain, No Diarrhea, No Constipation, No Melena, No Hematochezia, No Other Genitourinary: No Dysuria, No Frequency, No Incontinence, No Hematuria, No Retention, No Other Musculoskeletal: No other, No neck pain, No shoulder pain, No arm pain, No back pain, No hand pain, No leg pain, No foot pain Skin: No Rash, No Lesions, No Jaundice, No Bruising, No Other Objective Vitals Vital Signs Date Time Temp Pulse Resp B/P (MAP) Pulse Ox O2 Delivery O2 Flow Rate FiO2 03/10/25 12:00 78 03/10/25 10:21 113/37 03/10/25 07:41 98.1 12 97 98.1 03/10/25 07:41 Room Air* 0 21 Intake/Output Intake and Output 03/10/25 07:00 Intake Total 2445.3125 ml Output Total 2950 ml Balance -504.6875 ml Intake Oral 240 ml IV Total 1455.3125 ml Blood Product 500 ml Other 250 ml Output Urine Total 2950 ml # Bowel Movements 2 General Appearance: Alert, Oriented X3, No acute distress Lungs: Clear to auscultation, Normal air movement Cardiovascular: Regular rate, Normal S1, Normal S2, No murmurs Extremities: No edema Medications Current Medications Medications Dose Ordered Sig/Meenu Route Start Time Stop Time Status Last Admin Dose Admin Norepinephrine Bitartrate 250 ml @ 3.75 mls/hr Q24H IV 03/09/25 10:30 03/09/25 11:00 3.75 MLS/HR Acetaminophen/ Hydrocodone Bitart 1 tab Q4HP PRN PO 03/09/25 13:45 Ondansetron HCl 4 mg Q4HP PRN IV 03/09/25 13:45 Docusate Sodium 100 mg BIDPRN PRN PO 03/09/25 13:45 Enoxaparin Sodium 30 mg DAILY SC 03/10/25 10:00 Acetaminophen 650 mg Q6HP PRN PO 03/09/25 13:45 Morphine Sulfate 2 mg Q4HPRN PRN IV 03/09/25 13:45 Nitroglycerin 0.4 mg Q5MINP PRN SL 03/09/25 13:45 Morphine Sulfate 2 mg Q30M PRN IV 03/09/25 13:45 Diagnostic Test (Pha) 1 strip ACHS 03/09/25 17:00 03/10/25 12:30 1 STRIP Insulin Human Regular ACHS SC 03/09/25 17:00 03/09/25 17:23 3 UNITS Dextrose 50 ml UD PRN IV 03/09/25 13:45 Dobutamine HCl/ Dextrose 250 ml @ 8.7 mls/hr Q24H IV 03/09/25 13:45 03/09/25 14:50 8.7 MLS/HR Atorvastatin Calcium 20 mg HS PO 03/09/25 22:00 Clopidogrel Bisulfate 75 mg DAILY PO 03/10/25 10:00 Insulin Glargine 10 units BID SC 03/09/25 22:00 Ivabradine 5 mg BID PO 03/09/25 22:00 03/10/25 10:19 5 MG Lorazepam 0.5 mg HS PO 03/09/25 22:00 Sacubitril/ Valsartan 1 tab DAILY PO 03/10/25 10:00 03/10/25 10:18 1 TAB Tamsulosin HCl 0.4 mg BID PO 03/09/25 22:00 03/10/25 10:19 0.4 MG Patient Own Medication 1 tab DAILY PO 03/10/25 10:00 Magnesium Oxide 400 mg DAILY PO 03/10/25 10:00 03/10/25 10:19 400 MG Pramipexole Dihydrochloride 0.5 mg DAILY PO 03/10/25 10:00 03/10/25 10:17 0.5 MG Metronidazole 100 ml @ 100 mls/hr Q8HR IV 03/09/25 22:00 03/10/25 04:32 100 MLS/HR Docusate Sodium 100 mg DAILY PO 03/10/25 10:00 Pantoprazole Sodium 40 mg DAILY@0600 PO 03/10/25 06:00 Laboratory Results Laboratory Tests 03/10/25 03:47 Chemistry Test 03/10/25 03:47 Albumin 3.3 g/dL (3.2-4.8) Calcium Level 8.1 mg/dL (8.7-10.4) L Total Protein 6.4 g/dL (5.7-8.2) LFT Test 03/10/25 03:47 Alanine Aminotransferase (ALT) 15 U/L (7-40) Alkaline Phosphatase 53 U/L (46-116) Aspartate Amino Transferase (AST) 25 U/L (13-40) Total Bilirubin 1.3 mg/dL (0.2-1.0) H HgA1c, TSH Test 03/10/25 03:47 Hemoglobin A1c 6.6 % A1C (<5.7) H Urinalysis Test 03/09/25 12:34 Urine Color Light-yellow (Yellow) Urine Clarity Clear (Clear) Urine pH 5.0 (5.0-9.0) Urine Specific [place] 1.011 (1.001-1.035) Urine Protein Negative (Negative) Urine Ketones Negative (Negative) Urine Blood Negative /uL (Negative) Urine Nitrite Negative (Negative) Urine Bilirubin Negative (Negative) Urine Urobilinogen Normal mg/dL (Negative) Urine Leukocyte Esterase Negative /uL (Negative) Urine RBC <1 /hpf (0 - 3) Urine Microscopic WBC < 1 /HPF (0-3) Urine Squamous Epithelial Cells None seen /hpf (<5) Urine Bacteria None seen /hpf (None Seen) Urine Hyaline Casts Few /lpf (0 - 2) Urine Glucose Normal mg/dL (Normal) Microbiology Microbiology Date/Time Source Procedure Growth Status 03/09/25 09:30 Blood Blood Culture - Preliminary NO GROWTH AFTER 24 HOURS OF INCUBATION. Resulted Assessment/Plan Assessment/Plan Rectal bleeding CHF, chronic, EF less than 25% Status post ICD Type 2 diabetes Chronic anemia Severe proctocolitis of the rectosigmoid colon, rule out malignancy Cholelithiasis Small bilateral pleural effusions Cardiomegaly 2.5 cm infrarenal abdominal aortic aneurysm Hypokalemia Acute kidney injury most likely hemodynamically mediated Chronic kidney disease Plan NPO GI consult Cardiology consult Hold aspirin and Plavix No Lovenox Protonix 40 mg IV twice a day Full code Advance directives discussed for 20 minutes Plan of care discussed with the patient and the son at the bedside Plan discussed with: Patient, Son Date of Service: Mar 10, 2025 Billing Provider: KINDRA MENDOZA MD Common Visit Codes: [id number] INP/OBS CARE(HIGH) Secondary Visit Codes: [id number] CARE PLAN 30 MINUTES KINDRA MENDOZA MD Mar 10, 2025 13:52
[2025-03-10] MEDS: PANTOPRAZOLE 40 MG/10 ML VIAL INJ IV ONE (14:34)
[2025-03-10] MEDS: PANTOPRAZOLE 40 MG/10 ML VIAL INJ IV SCH (22:30)
[2025-03-11] VITALS (58 sets, daily range): BP systolic 87–130; BP diastolic 33–76; PULSE 59–80; RESP 12–22; TEMP 97.8–98.3; O2SAT 93–98
[2025-03-11 05:23] LABS: Alanine Aminotransferase 14 U/L (7-40); Alkaline Phosphatase 47 U/L (46-116); Anion Gap 10 (5-15); BUN/Creatinine Ratio 19.5 (10.0-20.0); Carbon Dioxide 21 mmol/L (20-31); Chloride 107 mmol/L (98-107); Sodium 138 mmol/L (136-145); Total Protein 6.1 g/dL (5.7-8.2)
[2025-03-11 05:24] LABS: Bilirubin, Total 1.0 mg/dL (0.2-1.0)
[2025-03-11 05:28] LABS: Blood Urea Nitrogen 24 mg/dL (9-23); Calcium 7.9 mg/dL (8.7-10.4); Glucose 66 mg/dL (74-106); Magnesium 1.4 mg/dL (1.6-2.6); Potassium 3.3 mmol/L (3.5-5.1)
[2025-03-11 05:45] LABS: Hematocrit 28.8 % (41.0-53.0); Hemoglobin 10.0 g/dL (13.5-17.5); Mean Corpuscular Hemoglobin 34.4 pg (28.0-32.0); Mean Corpuscular Volume 99.6 fL (80.0-100.0); Nucleated Red Blood Cells % 0.2 %
[2025-03-11 07:15] LABS: Albumin 3.1 g/dL (3.2-4.8)
[2025-03-11] MEDS: POTASSIUM CHL 20MEQ/100ML 100 ML IV ONE (07:45)
--- NOTE | 2025-03-11 09:36 | DVHPN2 ---
Progress Note Date Seen: Mar 11, 2025 Resident Creating Document: ALCIDES RIBERA RESIDENT Medical Necessity Reason Pt with a Central, PICC or Fol: Yes Subjective Review of Systems Patient seen and examined at bedside This morning, BM bloody smear only Currently tolerating clear liquid diet Stable H&H Objective vital signs Vital Sign Date Time Temp Pulse Resp B/P (MAP) Pulse Ox O2 Delivery O2 Flow Rate FiO2 03/11/25 08:30 75 18 98 Room Air* 0 21 03/11/25 07:15 122/34 (63) 03/10/25 19:30 98.3 98.3 Total Intake and Output 03/10/25 03/10/25 03/11/25 15:00 23:00 07:00 Intake Total 60.9 ml 43.5 ml 234.60 ml Output Total 750 ml Balance 60.9 ml 43.5 ml -515.40 ml medications Current Medications Medications Dose Ordered Sig/Meenu Route Start Time Stop Time Status Last Admin Dose Admin Norepinephrine Bitartrate 250 ml @ 3.75 mls/hr Q24H IV 03/09/25 10:30 03/11/25 03:00 3.75 MLS/HR Acetaminophen/ Hydrocodone Bitart 1 tab Q4HP PRN PO 03/09/25 13:45 Ondansetron HCl 4 mg Q4HP PRN IV 03/09/25 13:45 Docusate Sodium 100 mg BIDPRN PRN PO 03/09/25 13:45 Enoxaparin Sodium 30 mg DAILY SC 03/10/25 10:00 Acetaminophen 650 mg Q6HP PRN PO 03/09/25 13:45 Morphine Sulfate 2 mg Q4HPRN PRN IV 03/09/25 13:45 Nitroglycerin 0.4 mg Q5MINP PRN SL 03/09/25 13:45 Morphine Sulfate 2 mg Q30M PRN IV 03/09/25 13:45 Diagnostic Test (Pha) 1 strip ACHS 03/09/25 17:00 03/11/25 06:52 1 STRIP Insulin Human Regular ACHS SC 03/09/25 17:00 03/10/25 22:36 2 UNITS Dextrose 50 ml UD PRN IV 03/09/25 13:45 Dobutamine HCl/ Dextrose 250 ml @ 8.7 mls/hr Q24H IV 03/09/25 13:45 03/10/25 14:35 8.7 MLS/HR Atorvastatin Calcium 20 mg HS PO 03/09/25 22:00 03/10/25 22:30 20 MG Clopidogrel Bisulfate 75 mg DAILY PO 03/10/25 10:00 Insulin Glargine 10 units BID SC 03/09/25 22:00 03/10/25 22:35 10 UNITS Ivabradine 5 mg BID PO 03/09/25 22:00 03/10/25 22:30 5 MG Lorazepam 0.5 mg HS PO 03/09/25 22:00 03/10/25 22:29 0.5 MG Sacubitril/ Valsartan 1 tab DAILY PO 03/10/25 10:00 03/10/25 10:18 1 TAB Tamsulosin HCl 0.4 mg BID PO 03/09/25 22:00 03/10/25 23:25 0.4 MG Patient Own Medication 1 tab DAILY PO 03/10/25 10:00 Magnesium Oxide 400 mg DAILY PO 03/10/25 10:00 03/10/25 10:19 400 MG Pramipexole Dihydrochloride 0.5 mg DAILY PO 03/10/25 10:00 03/10/25 10:17 0.5 MG Metronidazole 100 ml @ 100 mls/hr Q8HR IV 03/09/25 22:00 03/11/25 05:53 100 MLS/HR Docusate Sodium 100 mg DAILY PO 03/10/25 10:00 Pantoprazole Sodium 40 mg BID IV 03/10/25 22:00 03/10/25 22:30 40 MG Examination General Appearance: Cooperative. Well developed. Pulmonary/Respiratory: Bilateral air entry. Crackles Cardiovascular/Chest: Regular rate and rhythm. Abdominal Exam: Normal bowel sounds. Soft. normal abdomen, no visible veins, Nontender. No hepatospenomegaly. No masses Neuro/Mental Status: A&O x2-3. Coherent. laboratory and microbiology Laboratory Tests 03/11/25 03:52 Test 03/11/25 03:52 Range/Units Serum Glucose 66 L 74-106 mg/dL Microbiology Date/Time Source Procedure Growth Status 03/09/25 09:30 Blood Blood Culture - Preliminary NO GROWTH AFTER 24 HOURS OF INCUBATION. Resulted Labs and/or images reviewed: Labs reviewed by me, Image(s) reviewed by me Problem List/Assessment/Plan Problem List/Assessment/Plan Acute severe proctocolitis/proctosigmoiditis ? Stercoral colitis Lower GI bleed due to above Anemia, likely of chronic disease with MCV 91.6 Acute on chronic Heart failure with reduced ejection fraction less than 25% in exacerbation Severe tricuspid regurgitation Severe mitral regurgitation S/p AICD Plan: Awaiting stool studies IV antibiotics Conservative management recommended if GI bleeding resolves Cardiology follow up and CHF stabilization Possible sigmoidoscopy inpatient versus outpatient Advance diet as tolerated Request records from gastro group if possible, per patient last colonoscopy 1 year ago Thank you so much for the opportunity to consult on your patient. GI team will follow the patient. In case of any questions or concerns please feel free to reach out. Plan discussed with Dr. Harris Plan discussed with: Patient, Son, Other (RN) CC Plasma Assessment Blood Product Administration S: [id number] ALCIDES RIBERA RESIDENT Mar 11, 2025 09:36
[2025-03-11] MEDS: MAGNESIUM SULFATE 1GM/100ML 100 ML IV SCH (11:32)
--- NOTE | 2025-03-11 11:36 | DVHPN2 ---
Progress Note - Dictate Date Seen: Mar 10, 2025 Medical Necessity Reason Pt with a Central, PICC or Fol: Yes The following are medically ne: Hubbard Catheter Subjective PT WELL KNOW TO ME NOW WITH ACTIVE RECTAL BLEED HX OF PROCTITIS MULTIPLE RECENT TRANSFUSIONS ALL ANTI COAGULANTS HAVE BEEN DISCONTINUED The patient with history of ischemic cardiomyopathy, depressed left ventricular ejection fraction, Bi-V AICD The patient with congestive heart failure, EF less than 20%. The patient recently had atrial fibrillation that required cardioversion as well. The patient also had recent coronary angiography, shows patent vessels. Not a candidate for any revascularization at this time. He is very compliant on his medication and also very compliant in terms of following his regimen at the congestive heart failure clinic. He has been doing extremely well and his weight has been very stable. His fluid status has been very stable as well. PERTINENT MEDICAL HISTORY: Significant for: * Ischemic cardiomyopathy. * Coronary artery disease and coronary artery bypass grafting. * Hypertension. * Hyperlipidemia. BIV AICD MR/TR REVIEW OF SYSTEMS: He denies any fever or chills, +hematochezia. No bleeding diathesis. No hematemesis or hemoptysis. No history of any liver disease. No history of lung disease. PT CLINICALLY STABLE FROM CARDIAC STAND POINT TO UNDERGO GI WORK UP vital signs Vital Sign Date Time Temp Pulse Resp B/P (MAP) Pulse Ox O2 Delivery O2 Flow Rate FiO2 03/11/25 11:00 70 16 125/49 (74) 96 03/11/25 10:00 Room Air* 0 21 03/11/25 09:00 97.8 97.8 Total Intake and Output 03/10/25 03/10/25 03/11/25 14:59 22:59 06:59 Intake Total 69.6 ml 34.8 ml 230.85 ml Output Total 750 ml Balance 69.6 ml 34.8 ml -519.15 ml medications Current Medications Medications Dose Ordered Sig/Meenu Route Start Time Stop Time Status Last Admin Dose Admin Norepinephrine Bitartrate 250 ml @ 3.75 mls/hr Q24H IV 03/09/25 10:30 03/11/25 03:00 3.75 MLS/HR Acetaminophen/ Hydrocodone Bitart 1 tab Q4HP PRN PO 03/09/25 13:45 Ondansetron HCl 4 mg Q4HP PRN IV 03/09/25 13:45 Docusate Sodium 100 mg BIDPRN PRN PO 03/09/25 13:45 Enoxaparin Sodium 30 mg DAILY SC 03/10/25 10:00 Acetaminophen 650 mg Q6HP PRN PO 03/09/25 13:45 Morphine Sulfate 2 mg Q4HPRN PRN IV 03/09/25 13:45 Nitroglycerin 0.4 mg Q5MINP PRN SL 03/09/25 13:45 Morphine Sulfate 2 mg Q30M PRN IV 03/09/25 13:45 Diagnostic Test (Pha) 1 strip ACHS 03/09/25 17:00 03/11/25 06:52 1 STRIP Insulin Human Regular ACHS SC 03/09/25 17:00 03/10/25 22:36 2 UNITS Dextrose 50 ml UD PRN IV 03/09/25 13:45 Dobutamine HCl/ Dextrose 250 ml @ 8.7 mls/hr Q24H IV 03/09/25 13:45 03/10/25 14:35 8.7 MLS/HR Atorvastatin Calcium 20 mg HS PO 03/09/25 22:00 03/10/25 22:30 20 MG Clopidogrel Bisulfate 75 mg DAILY PO 03/10/25 10:00 Insulin Glargine 10 units BID SC 03/09/25 22:00 03/10/25 22:35 10 UNITS Ivabradine 5 mg BID PO 03/09/25 22:00 03/11/25 11:27 5 MG Lorazepam 0.5 mg HS PO 03/09/25 22:00 03/10/25 22:29 0.5 MG Sacubitril/ Valsartan 1 tab DAILY PO 03/10/25 10:00 03/11/25 09:48 1 TAB Tamsulosin HCl 0.4 mg BID PO 03/09/25 22:00 03/11/25 09:48 0.4 MG Patient Own Medication 1 tab DAILY PO 03/10/25 10:00 Magnesium Oxide 400 mg DAILY PO 03/10/25 10:00 03/11/25 09:48 400 MG Pramipexole Dihydrochloride 0.5 mg DAILY PO 03/10/25 10:00 03/11/25 11:21 0.5 MG Metronidazole 100 ml @ 100 mls/hr Q8HR IV 03/09/25 22:00 03/11/25 05:53 100 MLS/HR Docusate Sodium 100 mg DAILY PO 03/10/25 10:00 Pantoprazole Sodium 40 mg BID IV 03/10/25 22:00 03/11/25 09:48 40 MG Magnesium Sulfate/ Dextrose 100 ml @ 100 mls/hr Q1HR IV 03/11/25 10:00 03/11/25 11:59 objective PHYSICAL EXAMINATION: VITAL SIGNS: Blood pressure is 104/82, pulse of 80 and irregular. HEENT: Pupils are reactive. Funduscopic exam is benign. Sclerae anicteric. Oral mucosa moist. NECK: No JVD appreciated. Carotid pulses are 2+ symmetrical. No cervical adenopathy, no supraclavicular adenopathy. No nuchal rigidity. PULMONARY: Crackles at the bases. CARDIOVASCULAR: Regular rate. PMI is diffuse, laterally displaced however. ABDOMEN: Soft, nontender. Normal bowel sounds.STOOL GUAIAC POSITIVE, BRIGHT RED BLOOD SKIN: Unremarkable. EXTREMITIES: Unremarkable, other than 1+ edema, 2+ pulses. NEUROLOGIC: The patient is intact. laboratory and microbiology Laboratory Tests 03/11/25 03:52 Test 03/11/25 03:52 Range/Units Serum Glucose 66 L 74-106 mg/dL Problem List NOW WITH ACTIVE RECTAL BLEED HX OF PROCTITIS MULTIPLE RECENT TRANSFUSIONS ALL ANTI COAGULANTS HAVE BEEN DISCONTINUED The patient with history of ischemic cardiomyopathy, depressed left ventricular ejection fraction, Bi-V AICD The patient with congestive heart failure, EF less than 20%. The patient recently had atrial fibrillation that required cardioversion as well. The patient also had recent coronary angiography, shows patent vessels. Not a candidate for any revascularization at this time. He is very compliant on his medication and also very compliant in terms of following his regimen at the congestive heart failure clinic. He has been doing extremely well and his weight has been very stable. His fluid status has been very stable as well. PERTINENT MEDICAL HISTORY: Significant for: * Ischemic cardiomyopathy. * Coronary artery disease and coronary artery bypass grafting. * Hypertension. * Hyperlipidemia. BIV AICD MR/TR EF <20% REVIEW OF SYSTEMS: He denies any fever or chills, +hematochezia. No bleeding diathesis. No hematemesis or hemoptysis. No history of any liver disease. No history of lung disease. PT CLINICALLY STABLE FROM CARDIAC STAND POINT TO UNDERGO GI WORK UP Assessment/Plan TRANSFUSE MAY PROCEED WITH GI WORKUP Plan discussed with: Patient Critical Care Time(min): 35 CC Plasma Assessment Blood Product Administration S: [id number] GILDA WOO MD Mar 11, 2025 11:36
--- NOTE | 2025-03-11 12:37 | DVHPN2 ---
Subjective Stable No active bleeding Hemoglobin is 10.0 Platelets 99 Changes from previous H/P or p: Changes Eyes: No Pain, No Vision change, No Conjunctivae inflammation, No Eyelid inflammation, No Other, No Redness ENT: No Ear pain, No Ear discharge, No Nose pain, No Nose discharge, No Nose congestion, No Mouth pain, No Mouth swelling, No Throat pain, No Throat swelling, No Other Cardiovascular: No Chest Pain, No Palpitations, No Orthopnea, No Paroxysmal Noc. Dyspnea, No Edema, No Lt Headedness, No Other Respiratory: No Cough, No Dry, No Shortness of breath, No SOB with excertion, No Wheezing, No Hemoptysis, No Pleuritic Pain, No Sputum, No Other Gastrointestinal: No Nausea, No Vomiting, No Abdominal Pain, No Diarrhea, No Constipation, No Melena, No Hematochezia, No Other Genitourinary: No Dysuria, No Frequency, No Incontinence, No Hematuria, No Retention, No Other Musculoskeletal: No other, No neck pain, No shoulder pain, No arm pain, No back pain, No hand pain, No leg pain, No foot pain Skin: No Rash, No Lesions, No Jaundice, No Bruising, No Other Objective Vitals Vital Signs Date Time Temp Pulse Resp B/P (MAP) Pulse Ox O2 Delivery O2 Flow Rate FiO2 03/11/25 11:00 70 16 125/49 (74) 96 03/11/25 10:00 Room Air* 0 21 03/11/25 09:00 97.8 97.8 Intake/Output Intake and Output 03/11/25 07:00 Intake Total 339.00 ml Output Total 750 ml Balance -411.00 ml Intake Oral 50 ml IV Total 289.00 ml Output Urine Total 750 ml General Appearance: Alert, Oriented X3, No acute distress Lungs: Clear to auscultation, Normal air movement Cardiovascular: Regular rate, Normal S1, Normal S2, No murmurs Extremities: No edema Medications Current Medications Medications Dose Ordered Sig/Meenu Route Start Time Stop Time Status Last Admin Dose Admin Norepinephrine Bitartrate 250 ml @ 3.75 mls/hr Q24H IV 03/09/25 10:30 03/11/25 03:00 3.75 MLS/HR Acetaminophen/ Hydrocodone Bitart 1 tab Q4HP PRN PO 03/09/25 13:45 Ondansetron HCl 4 mg Q4HP PRN IV 03/09/25 13:45 Docusate Sodium 100 mg BIDPRN PRN PO 03/09/25 13:45 Enoxaparin Sodium 30 mg DAILY SC 03/10/25 10:00 Acetaminophen 650 mg Q6HP PRN PO 03/09/25 13:45 Morphine Sulfate 2 mg Q4HPRN PRN IV 03/09/25 13:45 Nitroglycerin 0.4 mg Q5MINP PRN SL 03/09/25 13:45 Morphine Sulfate 2 mg Q30M PRN IV 03/09/25 13:45 Diagnostic Test (Pha) 1 strip ACHS 03/09/25 17:00 03/11/25 11:32 1 STRIP Insulin Human Regular ACHS SC 03/09/25 17:00 03/10/25 22:36 2 UNITS Dextrose 50 ml UD PRN IV 03/09/25 13:45 Dobutamine HCl/ Dextrose 250 ml @ 8.7 mls/hr Q24H IV 03/09/25 13:45 03/10/25 14:35 8.7 MLS/HR Atorvastatin Calcium 20 mg HS PO 03/09/25 22:00 03/10/25 22:30 20 MG Clopidogrel Bisulfate 75 mg DAILY PO 03/10/25 10:00 Insulin Glargine 10 units BID SC 03/09/25 22:00 03/10/25 22:35 10 UNITS Ivabradine 5 mg BID PO 03/09/25 22:00 03/11/25 11:27 5 MG Lorazepam 0.5 mg HS PO 03/09/25 22:00 03/10/25 22:29 0.5 MG Sacubitril/ Valsartan 1 tab DAILY PO 03/10/25 10:00 03/11/25 09:48 1 TAB Tamsulosin HCl 0.4 mg BID PO 03/09/25 22:00 03/11/25 09:48 0.4 MG Patient Own Medication 1 tab DAILY PO 03/10/25 10:00 Magnesium Oxide 400 mg DAILY PO 03/10/25 10:00 03/11/25 09:48 400 MG Pramipexole Dihydrochloride 0.5 mg DAILY PO 03/10/25 10:00 03/11/25 11:21 0.5 MG Metronidazole 100 ml @ 100 mls/hr Q8HR IV 03/09/25 22:00 03/11/25 05:53 100 MLS/HR Docusate Sodium 100 mg DAILY PO 03/10/25 10:00 Pantoprazole Sodium 40 mg BID IV 03/10/25 22:00 03/11/25 09:48 40 MG Laboratory Results Laboratory Tests 03/11/25 03:52 Chemistry Test 03/11/25 03:52 Albumin 3.1 g/dL (3.2-4.8) L Calcium Level 7.9 mg/dL (8.7-10.4) L Magnesium Level 1.4 mg/dL (1.6-2.6) L Total Protein 6.1 g/dL (5.7-8.2) LFT Test 03/11/25 03:52 Alanine Aminotransferase (ALT) 14 U/L (7-40) Alkaline Phosphatase 47 U/L (46-116) Aspartate Amino Transferase (AST) 29 U/L (13-40) Total Bilirubin 1.0 mg/dL (0.2-1.0) Urinalysis Test 03/09/25 12:34 Urine Color Light-yellow (Yellow) Urine Clarity Clear (Clear) Urine pH 5.0 (5.0-9.0) Urine Specific [place] 1.011 (1.001-1.035) Urine Protein Negative (Negative) Urine Ketones Negative (Negative) Urine Blood Negative /uL (Negative) Urine Nitrite Negative (Negative) Urine Bilirubin Negative (Negative) Urine Urobilinogen Normal mg/dL (Negative) Urine Leukocyte Esterase Negative /uL (Negative) Urine RBC <1 /hpf (0 - 3) Urine Microscopic WBC < 1 /HPF (0-3) Urine Squamous Epithelial Cells None seen /hpf (<5) Urine Bacteria None seen /hpf (None Seen) Urine Hyaline Casts Few /lpf (0 - 2) Urine Glucose Normal mg/dL (Normal) Microbiology Microbiology Date/Time Source Procedure Growth Status 03/09/25 09:30 Blood Blood Culture - Preliminary NO GROWTH AFTER 48 HOURS OF INCUBATION. Resulted Assessment/Plan Assessment/Plan Rectal bleeding CHF, chronic, EF less than 25% Status post ICD Type 2 diabetes Chronic anemia Severe proctocolitis of the rectosigmoid colon, rule out malignancy Cholelithiasis Small bilateral pleural effusions Cardiomegaly 2.5 cm infrarenal abdominal aortic aneurysm Hypokalemia Acute kidney injury most likely hemodynamically mediated Chronic kidney disease Plan NPO GI consult Cardiology consult Hold aspirin and Plavix No Lovenox Protonix 40 mg IV twice a day Full code Advance directives discussed for 20 minutes Plan of care discussed with the patient and the son at the bedside 03/11/2025: Dobutamine drip Norepinephrine drip Clear liquid diet GI evaluation in progress Get the records from the gastro group regarding his last colonoscopy Cardiology consult Dr. Hope Monitor closely Plan discussed with: Patient My Orders Orders - KINDRA MENDOZA MD Procedure Category Date Status Time Pantoprazole PHA 03/10/25 In Process (Protonix) 22:00 Date of Service: Mar 11, 2025 Billing Provider: KINDRA MENDOZA MD Common Visit Codes: [id number] INP/OBS CARE(HIGH) KINDRA MENDOZA MD Mar 11, 2025 12:37
--- NOTE | 2025-03-11 14:15 | ECG ---
[facility] Test Date: 2025-03-09 Test Time: 09:21:26 Pat Name: GEOVANNA KAUR Department: Room: 0206T Gender: M [employer] Supervisor: ANTONELLA : 1935 Requested By: ABNER JORDAN Order Number: [id number] Reading MD: Tomi Moreno Measurements Intervals [place] Rate: 88 P: 109 UT: 60 QRS: 255 QRSD: 134 T: 89 QT: 408 QTc: 494 Interpretive Statements Ventricular-paced rhythm No further analysis attempted due to paced rhythm Electronically Signed On 03-16-2025 18:57:56 PDT by Tomi Moreno Please click the below link to view image of tracing.
[2025-03-12] VITALS (96 sets, daily range): BP systolic 77–140; BP diastolic 31–66; PULSE 57–118; RESP 10–26; TEMP 98.2–102.8; O2SAT 87–100
[2025-03-12 05:38] LABS: Hematocrit 28.3 % (41.0-53.0); Hemoglobin 10.1 g/dL (13.5-17.5); Mean Corpuscular Hemoglobin 32.4 pg (28.0-32.0); Mean Corpuscular Volume 90.5 fL (80.0-100.0)
[2025-03-12 05:40] LABS: Chloride 105 mmol/L (98-107); Sodium 137 mmol/L (136-145)
[2025-03-12 05:41] LABS: Anion Gap 10 (5-15); Carbon Dioxide 22 mmol/L (20-31)
[2025-03-12 05:46] LABS: BUN/Creatinine Ratio 14.4 (10.0-20.0); Blood Urea Nitrogen 16 mg/dL (9-23); Glucose 94 mg/dL (74-106)
[2025-03-12 05:47] LABS: Calcium 8.1 mg/dL (8.7-10.4); Magnesium 1.9 mg/dL (1.6-2.6); Potassium 3.5 mmol/L (3.5-5.1)
[2025-03-12 06:31] LABS: Total Cells Counted 100.0 (100)
[2025-03-12] MEDS ORDERED: VANCOMYCIN PER PHARMACY 0 MG IV SCH (06:45)
[2025-03-12] MEDS: PIPERACILLIN-TAZOB 3.375GM 100 ML IV SCH (08:41)
[2025-03-12] MEDS: VANCOMYCIN 1.25GM/250ML 250 ML IV ONE (08:41)
--- NOTE | 2025-03-12 11:47 | DVHPN2 ---
Subjective No bleeding Hemoglobin stable at 10.0 Still on dobutamine drip Changes from previous H/P or p: Changes Eyes: No Pain, No Vision change, No Conjunctivae inflammation, No Eyelid inflammation, No Other, No Redness ENT: No Ear pain, No Ear discharge, No Nose pain, No Nose discharge, No Nose congestion, No Mouth pain, No Mouth swelling, No Throat pain, No Throat swelling, No Other Cardiovascular: No Chest Pain, No Palpitations, No Orthopnea, No Paroxysmal Noc. Dyspnea, No Edema, No Lt Headedness, No Other Respiratory: No Cough, No Dry, No Shortness of breath, No SOB with excertion, No Wheezing, No Hemoptysis, No Pleuritic Pain, No Sputum, No Other Gastrointestinal: No Nausea, No Vomiting, No Abdominal Pain, No Diarrhea, No Constipation, No Melena, No Hematochezia, No Other Genitourinary: No Dysuria, No Frequency, No Incontinence, No Hematuria, No Retention, No Other Musculoskeletal: No other, No neck pain, No shoulder pain, No arm pain, No back pain, No hand pain, No leg pain, No foot pain Skin: No Rash, No Lesions, No Jaundice, No Bruising, No Other Objective Vitals Vital Signs Date Time Temp Pulse Resp B/P (MAP) Pulse Ox O2 Delivery O2 Flow Rate FiO2 03/12/25 08:00 15 97 Room Air* 0 21 03/12/25 08:00 63 03/12/25 07:00 126/54 (78) 03/11/25 20:00 98.2 98.2 Intake/Output Intake and Output 03/12/25 07:00 Intake Total 1187.65 ml Output Total 750 ml Balance 437.65 ml Intake Oral 500 ml IV Total 687.65 ml Output Urine Total 750 ml # Bowel Movements 2 General Appearance: Alert, Oriented X3, No acute distress Lungs: Clear to auscultation, Normal air movement Cardiovascular: Regular rate, Normal S1, Normal S2, No murmurs Extremities: No edema Medications Current Medications Medications Dose Ordered Sig/Meenu Route Start Time Stop Time Status Last Admin Dose Admin Norepinephrine Bitartrate 250 ml @ 3.75 mls/hr Q24H IV 03/09/25 10:30 03/11/25 23:14 7.5 MLS/HR Acetaminophen/ Hydrocodone Bitart 1 tab Q4HP PRN PO 03/09/25 13:45 Ondansetron HCl 4 mg Q4HP PRN IV 03/09/25 13:45 Docusate Sodium 100 mg BIDPRN PRN PO 03/09/25 13:45 Enoxaparin Sodium 30 mg DAILY SC 03/10/25 10:00 Acetaminophen 650 mg Q6HP PRN PO 03/09/25 13:45 Morphine Sulfate 2 mg Q4HPRN PRN IV 03/09/25 13:45 Nitroglycerin 0.4 mg Q5MINP PRN SL 03/09/25 13:45 Morphine Sulfate 2 mg Q30M PRN IV 03/09/25 13:45 Diagnostic Test (Pha) 1 strip ACHS 03/09/25 17:00 03/12/25 07:00 1 STRIP Insulin Human Regular ACHS SC 03/09/25 17:00 03/11/25 17:20 4 UNITS Dextrose 50 ml UD PRN IV 03/09/25 13:45 Dobutamine HCl/ Dextrose 250 ml @ 8.7 mls/hr Q24H IV 03/09/25 13:45 03/11/25 15:12 8.7 MLS/HR Atorvastatin Calcium 20 mg HS PO 03/09/25 22:00 03/11/25 23:15 20 MG Clopidogrel Bisulfate 75 mg DAILY PO 03/10/25 10:00 03/12/25 08:48 75 MG Insulin Glargine 10 units BID SC 03/09/25 22:00 03/12/25 09:42 10 UNITS Ivabradine 5 mg BID PO 03/09/25 22:00 03/12/25 08:50 5 MG Lorazepam 0.5 mg HS PO 03/09/25 22:00 03/11/25 23:15 0.5 MG Sacubitril/ Valsartan 1 tab DAILY PO 03/10/25 10:00 03/12/25 08:43 1 TAB Tamsulosin HCl 0.4 mg BID PO 03/09/25 22:00 03/12/25 09:41 0.4 MG Patient Own Medication 1 tab DAILY PO 03/10/25 10:00 Magnesium Oxide 400 mg DAILY PO 03/10/25 10:00 03/12/25 08:43 400 MG Pramipexole Dihydrochloride 0.5 mg DAILY PO 03/10/25 10:00 03/12/25 09:41 0.5 MG Docusate Sodium 100 mg DAILY PO 03/10/25 10:00 Pantoprazole Sodium 40 mg BID IV 03/10/25 22:00 03/12/25 08:42 40 MG Vancomycin HCl 0 ml @ 0 mls/hr UD IV 03/12/25 06:45 Piperacillin Sod/ Tazobactam Sod 100 ml @ 25 mls/hr Q6HR IV 03/12/25 07:00 03/12/25 08:41 25 MLS/HR Laboratory Results Laboratory Tests 03/12/25 05:08 Chemistry Test 03/12/25 05:08 Calcium Level 8.1 mg/dL (8.7-10.4) L Magnesium Level 1.9 mg/dL (1.6-2.6) Urinalysis Test 03/09/25 12:34 Urine Color Light-yellow (Yellow) Urine Clarity Clear (Clear) Urine pH 5.0 (5.0-9.0) Urine Specific [place] 1.011 (1.001-1.035) Urine Protein Negative (Negative) Urine Ketones Negative (Negative) Urine Blood Negative /uL (Negative) Urine Nitrite Negative (Negative) Urine Bilirubin Negative (Negative) Urine Urobilinogen Normal mg/dL (Negative) Urine Leukocyte Esterase Negative /uL (Negative) Urine RBC <1 /hpf (0 - 3) Urine Microscopic WBC < 1 /HPF (0-3) Urine Squamous Epithelial Cells None seen /hpf (<5) Urine Bacteria None seen /hpf (None Seen) Urine Hyaline Casts Few /lpf (0 - 2) Urine Glucose Normal mg/dL (Normal) Microbiology Microbiology Date/Time Source Procedure Growth Status 03/09/25 09:30 Blood Blood Culture - Preliminary Resulted Assessment/Plan Assessment/Plan Rectal bleeding CHF, chronic, EF less than 25% Status post ICD Type 2 diabetes Chronic anemia Severe proctocolitis of the rectosigmoid colon, rule out malignancy Cholelithiasis Small bilateral pleural effusions Cardiomegaly 2.5 cm infrarenal abdominal aortic aneurysm Hypokalemia Acute kidney injury most likely hemodynamically mediated Chronic kidney disease Plan NPO GI consult Cardiology consult Hold aspirin and Plavix No Lovenox Protonix 40 mg IV twice a day Full code Advance directives discussed for 20 minutes Plan of care discussed with the patient and the son at the bedside 03/11/2025: Dobutamine drip Norepinephrine drip Clear liquid diet GI evaluation in progress Get the records from the gastro group regarding his last colonoscopy Cardiology consult Dr. Hope Monitor closely 03/12/2025: Tapered down the dopamine drip Continue dobutamine drip The patient was cleared by Cardiology for GI workup Hemoglobin is stable No need for blood transfusion Clear liquid diet Plan discussed with: Patient Date of Service: Mar 12, 2025 Billing Provider: KINDRA MENDOZA MD Common Visit Codes: [id number] INP/OBS CARE(HIGH) KINDRA MENDOZA MD Mar 12, 2025 11:47
[2025-03-12] MEDS: ONDANSETRON HCL 4 MG/2 ML VIAL IV PRN (13:47)
--- NOTE | 2025-03-12 13:52 | DVHPN2 ---
Progress Note Date Seen: Mar 12, 2025 Resident Creating Document: ALCIDES RIBERA RESIDENT Medical Necessity Reason Pt with a Central, PICC or Fol: Yes The following are medically ne: Hubbard Catheter Subjective Review of Systems Patient seen and examined at bedside Denies any nausea or vomiting Tolerating diet Two scant bowel movements overnight, mucoid in consistency, nonbloody Blood cultures growing Gram-positive cocci Objective vital signs Vital Sign Date Time Temp Pulse Resp B/P (MAP) Pulse Ox O2 Delivery O2 Flow Rate FiO2 03/12/25 12:00 73 03/12/25 12:00 18 97 Room Air* 0 21 03/12/25 07:00 126/54 (78) 03/11/25 20:00 98.2 98.2 Total Intake and Output 03/11/25 03/11/25 03/12/25 15:00 23:00 07:00 Intake Total 237.15 ml 737.10 ml 213.4 ml Output Total 500 ml 250 ml Balance 237.15 ml 237.10 ml -36.6 ml medications Current Medications Medications Dose Ordered Sig/Meenu Route Start Time Stop Time Status Last Admin Dose Admin Norepinephrine Bitartrate 250 ml @ 3.75 mls/hr Q24H IV 03/09/25 10:30 03/11/25 23:14 7.5 MLS/HR Acetaminophen/ Hydrocodone Bitart 1 tab Q4HP PRN PO 03/09/25 13:45 Ondansetron HCl 4 mg Q4HP PRN IV 03/09/25 13:45 03/12/25 13:47 4 MG Docusate Sodium 100 mg BIDPRN PRN PO 03/09/25 13:45 Enoxaparin Sodium 30 mg DAILY SC 03/10/25 10:00 Acetaminophen 650 mg Q6HP PRN PO 03/09/25 13:45 Morphine Sulfate 2 mg Q4HPRN PRN IV 03/09/25 13:45 Nitroglycerin 0.4 mg Q5MINP PRN SL 03/09/25 13:45 Morphine Sulfate 2 mg Q30M PRN IV 03/09/25 13:45 Diagnostic Test (Pha) 1 strip ACHS 03/09/25 17:00 03/12/25 11:57 1 STRIP Insulin Human Regular ACHS SC 03/09/25 17:00 03/12/25 11:59 2 UNITS Dextrose 50 ml UD PRN IV 03/09/25 13:45 Dobutamine HCl/ Dextrose 250 ml @ 8.7 mls/hr Q24H IV 03/09/25 13:45 03/11/25 15:12 8.7 MLS/HR Atorvastatin Calcium 20 mg HS PO 03/09/25 22:00 03/11/25 23:15 20 MG Clopidogrel Bisulfate 75 mg DAILY PO 03/10/25 10:00 03/12/25 08:48 75 MG Insulin Glargine 10 units BID SC 03/09/25 22:00 03/12/25 09:42 10 UNITS Ivabradine 5 mg BID PO 03/09/25 22:00 03/12/25 08:50 5 MG Lorazepam 0.5 mg HS PO 03/09/25 22:00 03/11/25 23:15 0.5 MG Sacubitril/ Valsartan 1 tab DAILY PO 03/10/25 10:00 03/12/25 08:43 1 TAB Tamsulosin HCl 0.4 mg BID PO 03/09/25 22:00 03/12/25 09:41 0.4 MG Patient Own Medication 1 tab DAILY PO 03/10/25 10:00 Magnesium Oxide 400 mg DAILY PO 03/10/25 10:00 03/12/25 08:43 400 MG Pramipexole Dihydrochloride 0.5 mg DAILY PO 03/10/25 10:00 03/12/25 09:41 0.5 MG Docusate Sodium 100 mg DAILY PO 03/10/25 10:00 Pantoprazole Sodium 40 mg BID IV 03/10/25 22:00 03/12/25 08:42 40 MG Vancomycin HCl 0 ml @ 0 mls/hr UD IV 03/12/25 06:45 Piperacillin Sod/ Tazobactam Sod 100 ml @ 25 mls/hr Q6HR IV 03/12/25 07:00 03/12/25 13:37 25 MLS/HR Examination General Appearance: Cooperative. Well developed. Pulmonary/Respiratory: Bilateral air entry. Crackles Cardiovascular/Chest: Regular rate and rhythm. Abdominal Exam: Normal bowel sounds. Soft. normal abdomen, no visible veins, Nontender. No hepatospenomegaly. No masses Neuro/Mental Status: A&O x2-3. Coherent. laboratory and microbiology Laboratory Tests 03/12/25 05:08 Test 03/12/25 05:08 Range/Units Serum Glucose 94 74-106 mg/dL Microbiology Date/Time Source Procedure Growth Status 03/10/25 16:50 Stool Stool Culture - Preliminary Resulted 03/10/25 16:50 Stool Shiga Toxin I & II Pending Resulted 03/10/25 16:50 Stool Clostridium difficile Toxin Assay Pending Resulted 03/09/25 09:30 Blood Blood Culture - Preliminary Resulted Labs and/or images reviewed: Labs reviewed by me, Image(s) reviewed by me Problem List/Assessment/Plan Problem List/Assessment/Plan Acute severe proctocolitis/proctosigmoiditis ? Stercoral colitis Mixed shock, septic and cardiogenic? Lower GI bleed due to above Anemia, likely of chronic disease with MCV 91.6 Acute on chronic Heart failure with reduced ejection fraction less than 25% in exacerbation Severe tricuspid regurgitation Severe mitral regurgitation S/p AICD Plan: Negative stool occult blood, negative stool WBCs Advance diet to full liquid diet IV antibiotics Conservative management recommended if GI bleeding resolves Cardiology follow up and CHF stabilization Possible sigmoidoscopy inpatient versus outpatient Advance diet as tolerated Request records from gastro group if possible, per patient last colonoscopy 1 year ago Thank you so much for the opportunity to consult on your patient. GI team will follow the patient. In case of any questions or concerns please feel free to reach out. Plan discussed with Dr. Harris Plan discussed with: Patient, Spouse, Other (RN) CC Plasma Assessment Blood Product Administration S: [id number] ALCIDES RIBERA RESIDENT Mar 12, 2025 13:52
--- NOTE | 2025-03-12 15:15 | DVHPN2 ---
Progress Note - Dictate Date Seen: Mar 12, 2025 Medical Necessity Reason Pt with a Central, PICC or Fol: Yes The following are medically ne: Hubbard Catheter Subjective PT WELL KNOW TO ME NOW WITH ACTIVE RECTAL BLEED HX OF PROCTITIS MULTIPLE RECENT TRANSFUSIONS ALL ANTI COAGULANTS HAVE BEEN DISCONTINUED The patient with history of ischemic cardiomyopathy, depressed left ventricular ejection fraction, Bi-V AICD The patient with congestive heart failure, EF less than 20%. The patient recently had atrial fibrillation that required cardioversion as well. The patient also had recent coronary angiography, shows patent vessels. Not a candidate for any revascularization at this time. He is very compliant on his medication and also very compliant in terms of following his regimen at the congestive heart failure clinic. He has been doing extremely well and his weight has been very stable. His fluid status has been very stable as well. PERTINENT MEDICAL HISTORY: Significant for: * Ischemic cardiomyopathy. * Coronary artery disease and coronary artery bypass grafting. * Hypertension. * Hyperlipidemia. BIV AICD MR/TR REVIEW OF SYSTEMS: He denies any fever or chills, +hematochezia. No bleeding diathesis. No hematemesis or hemoptysis. No history of any liver disease. No history of lung disease. PT CLINICALLY STABLE FROM CARDIAC STAND POINT TO UNDERGO GI WORK UP vital signs Vital Sign Date Time Temp Pulse Resp B/P (MAP) Pulse Ox O2 Delivery O2 Flow Rate FiO2 03/12/25 13:45 139/62 03/12/25 12:00 73 03/12/25 12:00 18 97 Room Air* 0 21 03/11/25 20:00 98.2 98.2 Total Intake and Output 03/11/25 03/11/25 03/12/25 15:00 23:00 07:00 Intake Total 237.15 ml 737.10 ml 213.4 ml Output Total 500 ml 250 ml Balance 237.15 ml 237.10 ml -36.6 ml medications Current Medications Medications Dose Ordered Sig/Meenu Route Start Time Stop Time Status Last Admin Dose Admin Norepinephrine Bitartrate 250 ml @ 3.75 mls/hr Q24H IV 03/09/25 10:30 03/11/25 23:14 7.5 MLS/HR Acetaminophen/ Hydrocodone Bitart 1 tab Q4HP PRN PO 03/09/25 13:45 Ondansetron HCl 4 mg Q4HP PRN IV 03/09/25 13:45 03/12/25 13:47 4 MG Enoxaparin Sodium 30 mg DAILY SC 03/10/25 10:00 Acetaminophen 650 mg Q6HP PRN PO 03/09/25 13:45 Morphine Sulfate 2 mg Q4HPRN PRN IV 03/09/25 13:45 Nitroglycerin 0.4 mg Q5MINP PRN SL 03/09/25 13:45 Morphine Sulfate 2 mg Q30M PRN IV 03/09/25 13:45 Diagnostic Test (Pha) 1 strip ACHS 03/09/25 17:00 03/12/25 11:57 1 STRIP Insulin Human Regular ACHS SC 03/09/25 17:00 03/12/25 11:59 2 UNITS Dextrose 50 ml UD PRN IV 03/09/25 13:45 Dobutamine HCl/ Dextrose 250 ml @ 8.7 mls/hr Q24H IV 03/09/25 13:45 03/11/25 15:12 8.7 MLS/HR Atorvastatin Calcium 20 mg HS PO 03/09/25 22:00 03/11/25 23:15 20 MG Clopidogrel Bisulfate 75 mg DAILY PO 03/10/25 10:00 03/12/25 08:48 75 MG Insulin Glargine 10 units BID SC 03/09/25 22:00 03/12/25 09:42 10 UNITS Ivabradine 5 mg BID PO 03/09/25 22:00 03/12/25 08:50 5 MG Lorazepam 0.5 mg HS PO 03/09/25 22:00 03/11/25 23:15 0.5 MG Sacubitril/ Valsartan 1 tab DAILY PO 03/10/25 10:00 03/12/25 08:43 1 TAB Tamsulosin HCl 0.4 mg BID PO 03/09/25 22:00 03/12/25 09:41 0.4 MG Patient Own Medication 1 tab DAILY PO 03/10/25 10:00 Magnesium Oxide 400 mg DAILY PO 03/10/25 10:00 03/12/25 08:43 400 MG Pramipexole Dihydrochloride 0.5 mg DAILY PO 03/10/25 10:00 03/12/25 09:41 0.5 MG Pantoprazole Sodium 40 mg BID IV 03/10/25 22:00 03/12/25 08:42 40 MG Vancomycin HCl 0 ml @ 0 mls/hr UD IV 03/12/25 06:45 Piperacillin Sod/ Tazobactam Sod 100 ml @ 25 mls/hr Q6HR IV 03/12/25 07:00 03/12/25 13:37 25 MLS/HR objective PHYSICAL EXAMINATION: VITAL SIGNS: Blood pressure is 104/82, pulse of 80 and irregular. HEENT: Pupils are reactive. Funduscopic exam is benign. Sclerae anicteric. Oral mucosa moist. NECK: No JVD appreciated. Carotid pulses are 2+ symmetrical. No cervical adenopathy, no supraclavicular adenopathy. No nuchal rigidity. PULMONARY: Crackles at the bases. CARDIOVASCULAR: Regular rate. PMI is diffuse, laterally displaced however. ABDOMEN: Soft, nontender. Normal bowel sounds.STOOL GUAIAC POSITIVE, BRIGHT RED BLOOD SKIN: Unremarkable. EXTREMITIES: Unremarkable, other than 1+ edema, 2+ pulses. NEUROLOGIC: The patient is intact. laboratory and microbiology Laboratory Tests 03/12/25 05:08 Test 03/12/25 05:08 Range/Units Serum Glucose 94 74-106 mg/dL Problem List NOW WITH ACTIVE RECTAL BLEED HX OF PROCTITIS MULTIPLE RECENT TRANSFUSIONS ALL ANTI COAGULANTS HAVE BEEN DISCONTINUED The patient with history of ischemic cardiomyopathy, depressed left ventricular ejection fraction, Bi-V AICD The patient with congestive heart failure, EF less than 20%. The patient recently had atrial fibrillation that required cardioversion as well. The patient also had recent coronary angiography, shows patent vessels. Not a candidate for any revascularization at this time. He is very compliant on his medication and also very compliant in terms of following his regimen at the congestive heart failure clinic. He has been doing extremely well and his weight has been very stable. His fluid status has been very stable as well. PERTINENT MEDICAL HISTORY: Significant for: * Ischemic cardiomyopathy. * Coronary artery disease and coronary artery bypass grafting. * Hypertension. * Hyperlipidemia. BIV AICD MR/TR EF <20% REVIEW OF SYSTEMS: He denies any fever or chills, +hematochezia. No bleeding diathesis. No hematemesis or hemoptysis. No history of any liver disease. No history of lung disease. PT CLINICALLY STABLE FROM CARDIAC STAND POINT TO UNDERGO GI WORK UP Assessment/Plan TRANSFUSE MAY PROCEED WITH GI WORKUP Plan discussed with: Patient Critical Care Time(min): 35 CC Plasma Assessment Blood Product Administration S: [id number] GILDA WOO MD Mar 12, 2025 15:15
[2025-03-12 16:16] LABS: Hematocrit 28.6 % (41.0-53.0); Hemoglobin 10.1 g/dL (13.5-17.5)
[2025-03-12] MEDS: ACETAMINOPHEN 325 MG TAB PO PRN (16:22)
[2025-03-12 18:23] LABS: Alanine Aminotransferase 12 U/L (7-40); Anion Gap 9 (5-15); BUN/Creatinine Ratio 13.6 (10.0-20.0); Blood Urea Nitrogen 17 mg/dL (9-23); Carbon Dioxide 22 mmol/L (20-31); Chloride 105 mmol/L (98-107); Glucose 88 mg/dL (74-106); Potassium 3.7 mmol/L (3.5-5.1); Total Protein 5.9 g/dL (5.7-8.2)
[2025-03-12 18:28] LABS: Albumin 3.0 g/dL (3.2-4.8); Alkaline Phosphatase 43 U/L (46-116); Bilirubin, Total 1.4 mg/dL (0.2-1.0); Calcium 8.1 mg/dL (8.7-10.4); Sodium 136 mmol/L (136-145)
[2025-03-12 19:10] LABS: Hematocrit 21.3 % (41.0-53.0); Hemoglobin 7.6 g/dL (13.5-17.5); Mean Corpuscular Hemoglobin 33.7 pg (28.0-32.0); Mean Corpuscular Volume 94.4 fL (80.0-100.0); Nucleated Red Blood Cells % 0.1 %
[2025-03-12 21:51] LABS: Urine Protein, UAD 2+ (Negative)
[2025-03-12 22:49] LABS: Hematocrit 27.6 % (41.0-53.0); Hemoglobin 9.8 g/dL (13.5-17.5); Mean Corpuscular Hemoglobin 33.6 pg (28.0-32.0); Mean Corpuscular Volume 95.0 fL (80.0-100.0); Nucleated Red Blood Cells % 0.1 %
[2025-03-13] VITALS (101 sets, daily range): BP systolic 77–128; BP diastolic 30–54; PULSE 55–79; RESP 10–23; TEMP 97.7–99.2; O2SAT 91–100
[2025-03-13 05:24] LABS: Hematocrit 27.4 % (41.0-53.0); Hemoglobin 9.7 g/dL (13.5-17.5); Mean Corpuscular Hemoglobin 32.5 pg (28.0-32.0); Mean Corpuscular Volume 92.0 fL (80.0-100.0); Nucleated Red Blood Cells % 0.3 %
[2025-03-13 05:27] LABS: Chloride 104 mmol/L (98-107)
[2025-03-13 05:28] LABS: Anion Gap 10 (5-15); Carbon Dioxide 21 mmol/L (20-31)
[2025-03-13 05:34] LABS: BUN/Creatinine Ratio 10.7 (10.0-20.0); Blood Urea Nitrogen 16 mg/dL (9-23); Calcium 7.9 mg/dL (8.7-10.4); Glucose 113 mg/dL (74-106); Magnesium 1.7 mg/dL (1.6-2.6); Potassium 3.5 mmol/L (3.5-5.1); Sodium 135 mmol/L (136-145)
[2025-03-13] MEDS: MAGNESIUM SULFATE 1GM/100ML 100 ML IV ONE (09:03)
--- NOTE | 2025-03-13 10:53 | DVHPN2 ---
Subjective No bleeding Hemoglobin stable at 9.7 Still on dobutamine drip Platelets 87 Changes from previous H/P or p: Changes Eyes: No Pain, No Vision change, No Conjunctivae inflammation, No Eyelid inflammation, No Other, No Redness ENT: No Ear pain, No Ear discharge, No Nose pain, No Nose discharge, No Nose congestion, No Mouth pain, No Mouth swelling, No Throat pain, No Throat swelling, No Other Cardiovascular: No Chest Pain, No Palpitations, No Orthopnea, No Paroxysmal Noc. Dyspnea, No Edema, No Lt Headedness, No Other Respiratory: No Cough, No Dry, No Shortness of breath, No SOB with excertion, No Wheezing, No Hemoptysis, No Pleuritic Pain, No Sputum, No Other Gastrointestinal: No Nausea, No Vomiting, No Abdominal Pain, No Diarrhea, No Constipation, No Melena, No Hematochezia, No Other Genitourinary: No Dysuria, No Frequency, No Incontinence, No Hematuria, No Retention, No Other Musculoskeletal: No other, No neck pain, No shoulder pain, No arm pain, No back pain, No hand pain, No leg pain, No foot pain Skin: No Rash, No Lesions, No Jaundice, No Bruising, No Other Objective Vitals Vital Signs Date Time Temp Pulse Resp B/P (MAP) Pulse Ox O2 Delivery O2 Flow Rate FiO2 03/13/25 10:30 61 15 94/35 (54) 98 03/13/25 09:30 Nasal Cannula* 1 24 03/13/25 08:00 99.2 99.2 Intake/Output Intake and Output 03/13/25 07:00 Intake Total 3020.55 ml Output Total 550 ml Balance 2470.55 ml Intake Oral 2268 ml IV Total 752.55 ml Output Urine Total 550 ml # Bowel Movements 9 General Appearance: Alert, Oriented X3, No acute distress Lungs: Clear to auscultation, Normal air movement Cardiovascular: Regular rate, Normal S1, Normal S2, No murmurs Extremities: No edema Medications Current Medications Medications Dose Ordered Sig/Meenu Route Start Time Stop Time Status Last Admin Dose Admin Norepinephrine Bitartrate 250 ml @ 3.75 mls/hr Q24H IV 03/09/25 10:30 03/13/25 06:09 11.25 MLS/HR Acetaminophen/ Hydrocodone Bitart 1 tab Q4HP PRN PO 03/09/25 13:45 Ondansetron HCl 4 mg Q4HP PRN IV 03/09/25 13:45 03/12/25 13:47 4 MG Enoxaparin Sodium 30 mg DAILY SC 03/10/25 10:00 Acetaminophen 650 mg Q6HP PRN PO 03/09/25 13:45 03/12/25 16:22 650 MG Morphine Sulfate 2 mg Q4HPRN PRN IV 03/09/25 13:45 Nitroglycerin 0.4 mg Q5MINP PRN SL 03/09/25 13:45 Morphine Sulfate 2 mg Q30M PRN IV 03/09/25 13:45 Diagnostic Test (Pha) 1 strip ACHS 03/09/25 17:00 03/13/25 09:05 1 STRIP Insulin Human Regular ACHS SC 03/09/25 17:00 03/12/25 22:40 4 UNITS Dextrose 50 ml UD PRN IV 03/09/25 13:45 Dobutamine HCl/ Dextrose 250 ml @ 8.7 mls/hr Q24H IV 03/09/25 13:45 03/12/25 22:10 8.7 MLS/HR Atorvastatin Calcium 20 mg HS PO 03/09/25 22:00 03/12/25 22:39 20 MG Clopidogrel Bisulfate 75 mg DAILY PO 03/10/25 10:00 03/13/25 09:03 75 MG Insulin Glargine 10 units BID SC 03/09/25 22:00 03/13/25 09:05 10 UNITS Ivabradine 5 mg BID PO 03/09/25 22:00 03/13/25 09:04 5 MG Lorazepam 0.5 mg HS PO 03/09/25 22:00 03/12/25 22:39 0.5 MG Sacubitril/ Valsartan 1 tab DAILY PO 03/10/25 10:00 03/13/25 09:04 1 TAB Tamsulosin HCl 0.4 mg BID PO 03/09/25 22:00 03/13/25 09:04 0.4 MG Patient Own Medication 1 tab DAILY PO 03/10/25 10:00 Magnesium Oxide 400 mg DAILY PO 03/10/25 10:00 03/13/25 09:04 400 MG Pramipexole Dihydrochloride 0.5 mg DAILY PO 03/10/25 10:00 03/12/25 09:41 0.5 MG Pantoprazole Sodium 40 mg BID IV 03/10/25 22:00 03/13/25 09:03 40 MG Vancomycin HCl 0 ml @ 0 mls/hr UD IV 03/12/25 06:45 Piperacillin Sod/ Tazobactam Sod 100 ml @ 25 mls/hr Q6HR IV 03/12/25 07:00 03/13/25 06:00 25 MLS/HR Laboratory Results Laboratory Tests 03/13/25 04:41 Chemistry Test 03/12/25 17:40 03/13/25 04:41 Albumin 3.0 g/dL (3.2-4.8) L Calcium Level 8.1 mg/dL (8.7-10.4) L 7.9 mg/dL (8.7-10.4) L Total Protein 5.9 g/dL (5.7-8.2) Magnesium Level 1.7 mg/dL (1.6-2.6) LFT Test 03/12/25 17:40 Alanine Aminotransferase (ALT) 12 U/L (7-40) Alkaline Phosphatase 43 U/L (46-116) L Aspartate Amino Transferase (AST) 28 U/L (13-40) Total Bilirubin 1.4 mg/dL (0.2-1.0) H Urinalysis Test 03/09/25 12:34 03/12/25 20:30 Urine Hyaline Casts Few /lpf (0 - 2) Urine Color Yellow (Yellow) Urine Clarity Ex.turbid (Clear) Urine pH 6.0 (5.0-9.0) Urine Specific [place] 1.027 (1.001-1.035) Urine Protein 2+ (Negative) H Urine Ketones Trace (Negative) Urine Blood 3+ /uL (Negative) H Urine Nitrite Negative (Negative) Urine Bilirubin Negative (Negative) Urine Urobilinogen Normal mg/dL (Negative) Urine Leukocyte Esterase 2+ /uL (Negative) Urine RBC 224 /hpf (0 - 3) Urine Microscopic WBC 46 /HPF (0-3) H Urine Squamous Epithelial Cells None seen /hpf (<5) Urine Uric Acid Crystals Few /hpf (None Seen) Urine Bacteria Few /hpf (None Seen) H Urine Mucus Few (None Seen) Urine Glucose Normal mg/dL (Normal) Microbiology Microbiology Date/Time Source Procedure Growth Status 03/10/25 16:50 Stool Stool Culture - Preliminary Resulted 03/10/25 16:50 Stool Shiga Toxin I & II - Final Resulted 03/10/25 16:50 Stool Clostridium difficile Toxin Assay - Final Resulted 03/09/25 09:30 Blood Blood Culture - Preliminary Resulted Assessment/Plan Assessment/Plan Rectal bleeding CHF, chronic, EF less than 25% Status post ICD Type 2 diabetes Chronic anemia Severe proctocolitis of the rectosigmoid colon, rule out malignancy Cholelithiasis Small bilateral pleural effusions Cardiomegaly 2.5 cm infrarenal abdominal aortic aneurysm Hypokalemia Acute kidney injury most likely hemodynamically mediated Chronic kidney disease Plan NPO GI consult Cardiology consult Hold aspirin and Plavix No Lovenox Protonix 40 mg IV twice a day Full code Advance directives discussed for 20 minutes Plan of care discussed with the patient and the son at the bedside 03/11/2025: Dobutamine drip Norepinephrine drip Clear liquid diet GI evaluation in progress Get the records from the gastro group regarding his last colonoscopy Cardiology consult Dr. Hope Monitor closely 03/12/2025: Tapered down the dopamine drip Continue dobutamine drip The patient was cleared by Cardiology for GI workup Hemoglobin is stable No need for blood transfusion Clear liquid diet 03/13/2025: Continue dobutamine drip He is on Levophed drip again Hemoglobin is stable Full liquid diet Plan discussed with: Patient, Son My Orders Orders - KINDRA MENDOZA MD Procedure Category Date Status Time * [employer]aking [employer] Worker CONS 03/12/25 Transmitted Consult Blood Culture SHARONDA 03/12/25 In Process 18:03 Urine Bacterial SHARONDA 03/12/25 In Process Culture 23:47 Date of Service: Mar 13, 2025 Billing Provider: KINDRA MENDOZA MD Common Visit Codes: [id number] INP/OBS CARE(HIGH) KINDRA MENDOZA MD Mar 13, 2025 10:53
[2025-03-13] MEDS: VANCOMYCIN 750MG KIT 100 ML IV ONE (13:30)
--- NOTE | 2025-03-13 13:50 | DVHPN2 ---
Progress Note - Dictate Date Seen: Mar 13, 2025 Medical Necessity Reason Pt with a Central, PICC or Fol: Yes The following are medically ne: Hubbard Catheter Subjective No new complaints No active GI bleeding; hemoglobin stable at 9.7 S/P 1 unit PRBC Stool occult blood negative X 2 and Stool WBC negative Weak with low BP 77/32, patient is on IV dobutamine drip Blood c/s positive for G+ cocci on IV Abx Family at bedside stated pt had both EGD and Colonoscopy at [facility] within the last 1-2 yrs which were negative Patient appears to have pancytopenia which is more suggestive of a myelodysplastic syndrome or bone marrow suppression vital signs Vital Sign Date Time Temp Pulse Resp B/P (MAP) Pulse Ox O2 Delivery O2 Flow Rate FiO2 03/13/25 12:45 57 20 106/50 (68) 03/13/25 12:30 99 03/13/25 12:00 98.5 98.5 03/13/25 11:51 Nasal Cannula* 1 24 Total Intake and Output 03/12/25 03/12/25 03/13/25 15:00 23:00 07:00 Intake Total 614.85 ml 831.10 ml 1574.60 ml Output Total 250 ml 300 ml Balance 614.85 ml 581.10 ml 1274.60 ml medications Current Medications Medications Dose Ordered Sig/Meenu Route Start Time Stop Time Status Last Admin Dose Admin Norepinephrine Bitartrate 250 ml @ 3.75 mls/hr Q24H IV 03/09/25 10:30 03/13/25 06:09 11.25 MLS/HR Acetaminophen/ Hydrocodone Bitart 1 tab Q4HP PRN PO 03/09/25 13:45 Ondansetron HCl 4 mg Q4HP PRN IV 03/09/25 13:45 03/12/25 13:47 4 MG Enoxaparin Sodium 30 mg DAILY SC 03/10/25 10:00 Acetaminophen 650 mg Q6HP PRN PO 03/09/25 13:45 03/12/25 16:22 650 MG Morphine Sulfate 2 mg Q4HPRN PRN IV 03/09/25 13:45 Nitroglycerin 0.4 mg Q5MINP PRN SL 03/09/25 13:45 Morphine Sulfate 2 mg Q30M PRN IV 03/09/25 13:45 Diagnostic Test (Pha) 1 strip ACHS 03/09/25 17:00 03/13/25 09:05 1 STRIP Insulin Human Regular ACHS SC 03/09/25 17:00 03/13/25 11:03 3 UNITS Dextrose 50 ml UD PRN IV 03/09/25 13:45 Dobutamine HCl/ Dextrose 250 ml @ 8.7 mls/hr Q24H IV 03/09/25 13:45 03/12/25 22:10 8.7 MLS/HR Atorvastatin Calcium 20 mg HS PO 03/09/25 22:00 03/12/25 22:39 20 MG Clopidogrel Bisulfate 75 mg DAILY PO 03/10/25 10:00 03/13/25 09:03 75 MG Insulin Glargine 10 units BID SC 03/09/25 22:00 03/13/25 09:05 10 UNITS Ivabradine 5 mg BID PO 03/09/25 22:00 03/13/25 09:04 5 MG Lorazepam 0.5 mg HS PO 03/09/25 22:00 03/12/25 22:39 0.5 MG Sacubitril/ Valsartan 1 tab DAILY PO 03/10/25 10:00 03/13/25 09:04 1 TAB Tamsulosin HCl 0.4 mg BID PO 03/09/25 22:00 03/13/25 09:04 0.4 MG Patient Own Medication 1 tab DAILY PO 03/10/25 10:00 Magnesium Oxide 400 mg DAILY PO 03/10/25 10:00 03/13/25 09:04 400 MG Pramipexole Dihydrochloride 0.5 mg DAILY PO 03/10/25 10:00 03/12/25 09:41 0.5 MG Pantoprazole Sodium 40 mg BID IV 03/10/25 22:00 03/13/25 09:03 40 MG Vancomycin HCl 0 ml @ 0 mls/hr UD IV 03/12/25 06:45 Piperacillin Sod/ Tazobactam Sod 100 ml @ 25 mls/hr Q6HR IV 03/12/25 07:00 03/13/25 11:03 25 MLS/HR objective General Appearance: Alert, Oriented X3, No acute distress; weak and lethargic Lungs: Clear to auscultation, Normal air movement Cardiovascular: Regular rate, Normal S1, Normal S2, No murmurs Extremities: No edema laboratory and microbiology Laboratory Tests 03/13/25 04:41 Test 03/13/25 04:41 Range/Units Serum Glucose 113 H 74-106 mg/dL Problems(with codes): (1) GI bleed (2) Proctocolitis (3) Severe anemia (4) CHF (congestive heart failure) (5) Pancytopenia Prognosis Plan Continue supportive care Continue to monitor labs IV Protonix 40 mg daily Diet as tolerated Consider bone marrow biopsy possibly by IR rule out myelodysplastic syndrome and a hematology consultation At this time as the patient is not having any active GI bleeding and overall because of his poor physical condition I do not believe he needs a repeat panendoscopy I would recommend reviewing the previously done procedure records from gastro group Dietary Evaluation Review Comments: 1) Encourage optimal PO intake 2) Advance to 60g CCHO cardiac diet when medically feasible 3) Follow-up with gastroenterology, cardiology, and nephrology 4) Continue to monitor I&O, labs, and skin integrity Expected Outcomes/Goals: 1) appetite and labs to improve 2) diet to advance 3) f/u in 3-5 days Plan discussed with: Patient CC Plasma Assessment Blood Product Administration S: [id number] ERLIN JEAN MD Mar 13, 2025 13:50
[2025-03-14] VITALS (102 sets, daily range): BP systolic 81–122; BP diastolic 33–52; PULSE 56–82; RESP 9–22; TEMP 97.8–98.3; O2SAT 92–100
[2025-03-14 05:05] LABS: Hemoglobin 8.7 g/dL (13.5-17.5)
[2025-03-14 05:08] LABS: Hematocrit 24.5 % (41.0-53.0); Mean Corpuscular Hemoglobin 33.3 pg (28.0-32.0); Mean Corpuscular Volume 93.5 fL (80.0-100.0); Nucleated Red Blood Cells % 0.3 %
[2025-03-14 06:07] LABS: Hematocrit 25.6 % (41.0-53.0)
[2025-03-14 06:09] LABS: Hemoglobin 9.1 g/dL (13.5-17.5); Mean Corpuscular Hemoglobin 32.2 pg (28.0-32.0); Mean Corpuscular Volume 90.9 fL (80.0-100.0); Nucleated Red Blood Cells % 0.1 %
[2025-03-14 06:23] LABS: Alanine Aminotransferase 12 U/L (7-40); Anion Gap 9 (5-15); BUN/Creatinine Ratio 9.5 (10.0-20.0); Bilirubin, Total 0.6 mg/dL (0.2-1.0); Blood Urea Nitrogen 13 mg/dL (9-23); Carbon Dioxide 22 mmol/L (20-31); Chloride 105 mmol/L (98-107); Glucose 80 mg/dL (74-106); Magnesium 1.7 mg/dL (1.6-2.6); Potassium 3.6 mmol/L (3.5-5.1)
[2025-03-14 06:29] LABS: Albumin 2.7 g/dL (3.2-4.8); Alkaline Phosphatase 34 U/L (46-116); Calcium 7.7 mg/dL (8.7-10.4); Sodium 136 mmol/L (136-145); Total Protein 5.5 g/dL (5.7-8.2)
[2025-03-14] MEDS: MAGNESIUM SULFATE 1GM/100ML 100 ML IV SCH (10:40)
--- NOTE | 2025-03-14 11:36 | DVHPN2 ---
Subjective No bleeding Hemoglobin stable at 9.1 Still on dobutamine drip and dopamine drip Platelets 81 White count is 1.8 Changes from previous H/P or p: Changes Eyes: No Pain, No Vision change, No Conjunctivae inflammation, No Eyelid inflammation, No Other, No Redness ENT: No Ear pain, No Ear discharge, No Nose pain, No Nose discharge, No Nose congestion, No Mouth pain, No Mouth swelling, No Throat pain, No Throat swelling, No Other Cardiovascular: No Chest Pain, No Palpitations, No Orthopnea, No Paroxysmal Noc. Dyspnea, No Edema, No Lt Headedness, No Other Respiratory: No Cough, No Dry, No Shortness of breath, No SOB with excertion, No Wheezing, No Hemoptysis, No Pleuritic Pain, No Sputum, No Other Gastrointestinal: No Nausea, No Vomiting, No Abdominal Pain, No Diarrhea, No Constipation, No Melena, No Hematochezia, No Other Genitourinary: No Dysuria, No Frequency, No Incontinence, No Hematuria, No Retention, No Other Musculoskeletal: No other, No neck pain, No shoulder pain, No arm pain, No back pain, No hand pain, No leg pain, No foot pain Skin: No Rash, No Lesions, No Jaundice, No Bruising, No Other Objective Vitals Vital Signs Date Time Temp Pulse Resp B/P (MAP) Pulse Ox O2 Delivery O2 Flow Rate FiO2 03/14/25 10:07 59 03/14/25 10:04 14 92 Room Air* 0 21 03/14/25 10:00 116/49 (71) 03/14/25 08:00 98.0 98.0 Intake/Output Intake and Output 03/14/25 07:00 Intake Total 3205.10 ml Output Total 1200 ml Balance 2005.10 ml Intake Oral 2550 ml IV Total 655.10 ml Output Urine Total 1200 ml # Bowel Movements 4 General Appearance: Alert, Oriented X3, No acute distress Lungs: Clear to auscultation, Normal air movement Cardiovascular: Regular rate, Normal S1, Normal S2, No murmurs Extremities: No edema Medications Current Medications Medications Dose Ordered Sig/Meenu Route Start Time Stop Time Status Last Admin Dose Admin Norepinephrine Bitartrate 250 ml @ 3.75 mls/hr Q24H IV 03/09/25 10:30 03/13/25 23:41 7.5 MLS/HR Acetaminophen/ Hydrocodone Bitart 1 tab Q4HP PRN PO 03/09/25 13:45 Ondansetron HCl 4 mg Q4HP PRN IV 03/09/25 13:45 03/12/25 13:47 4 MG Acetaminophen 650 mg Q6HP PRN PO 03/09/25 13:45 03/12/25 16:22 650 MG Morphine Sulfate 2 mg Q4HPRN PRN IV 03/09/25 13:45 Nitroglycerin 0.4 mg Q5MINP PRN SL 03/09/25 13:45 Morphine Sulfate 2 mg Q30M PRN IV 03/09/25 13:45 Diagnostic Test (Pha) 1 strip ACHS 03/09/25 17:00 03/14/25 10:40 1 STRIP Insulin Human Regular ACHS SC 03/09/25 17:00 03/14/25 10:41 3 UNITS Dextrose 50 ml UD PRN IV 03/09/25 13:45 Dobutamine HCl/ Dextrose 250 ml @ 8.7 mls/hr Q24H IV 03/09/25 13:45 03/13/25 23:42 8.7 MLS/HR Atorvastatin Calcium 20 mg HS PO 03/09/25 22:00 03/13/25 22:23 20 MG Clopidogrel Bisulfate 75 mg DAILY PO 03/10/25 10:00 03/14/25 08:46 75 MG Insulin Glargine 10 units BID SC 03/09/25 22:00 03/14/25 10:00 10 UNITS Ivabradine 5 mg BID PO 03/09/25 22:00 03/14/25 08:46 5 MG Lorazepam 0.5 mg HS PO 03/09/25 22:00 03/13/25 22:23 0.5 MG Sacubitril/ Valsartan 1 tab DAILY PO 03/10/25 10:00 03/14/25 08:46 1 TAB Tamsulosin HCl 0.4 mg BID PO 03/09/25 22:00 03/14/25 08:46 0.4 MG Patient Own Medication 1 tab DAILY PO 03/10/25 10:00 Magnesium Oxide 400 mg DAILY PO 03/10/25 10:00 03/14/25 08:46 400 MG Pramipexole Dihydrochloride 0.5 mg DAILY PO 03/10/25 10:00 03/14/25 10:40 0.5 MG Pantoprazole Sodium 40 mg BID IV 03/10/25 22:00 03/14/25 08:46 40 MG Vancomycin HCl 0 ml @ 0 mls/hr UD IV 03/12/25 06:45 Piperacillin Sod/ Tazobactam Sod 100 ml @ 25 mls/hr Q6HR IV 03/12/25 07:00 03/14/25 06:00 25 MLS/HR Magnesium Sulfate/ Dextrose 100 ml @ 100 mls/hr Q1HR IV 03/14/25 11:00 03/14/25 12:59 03/14/25 10:40 100 MLS/HR Laboratory Results Laboratory Tests 03/14/25 05:55 Chemistry Test 03/14/25 05:55 Albumin 2.7 g/dL (3.2-4.8) L Calcium Level 7.7 mg/dL (8.7-10.4) L Magnesium Level 1.7 mg/dL (1.6-2.6) Total Protein 5.5 g/dL (5.7-8.2) L LFT Test 03/14/25 05:55 Alanine Aminotransferase (ALT) 12 U/L (7-40) Alkaline Phosphatase 34 U/L (46-116) L Aspartate Amino Transferase (AST) 26 U/L (13-40) Total Bilirubin 0.6 mg/dL (0.2-1.0) Urinalysis Test 03/09/25 12:34 03/12/25 20:30 Urine Hyaline Casts Few /lpf (0 - 2) Urine Color Yellow (Yellow) Urine Clarity Ex.turbid (Clear) Urine pH 6.0 (5.0-9.0) Urine Specific [place] 1.027 (1.001-1.035) Urine Protein 2+ (Negative) H Urine Ketones Trace (Negative) Urine Blood 3+ /uL (Negative) H Urine Nitrite Negative (Negative) Urine Bilirubin Negative (Negative) Urine Urobilinogen Normal mg/dL (Negative) Urine Leukocyte Esterase 2+ /uL (Negative) Urine RBC 224 /hpf (0 - 3) Urine Microscopic WBC 46 /HPF (0-3) H Urine Squamous Epithelial Cells None seen /hpf (<5) Urine Uric Acid Crystals Few /hpf (None Seen) Urine Bacteria Few /hpf (None Seen) H Urine Mucus Few (None Seen) Urine Glucose Normal mg/dL (Normal) Microbiology Microbiology Date/Time Source Procedure Growth Status 03/12/25 20:30 Urine - [place] Urine Culture - Preliminary Resulted 03/12/25 18:40 Blood Blood Culture - Preliminary NO GROWTH AFTER 24 HOURS OF INCUBATION. Resulted 03/10/25 16:50 Stool Stool Culture - Preliminary Resulted 03/10/25 16:50 Stool Shiga Toxin I & II - Final Resulted 03/10/25 16:50 Stool Clostridium difficile Toxin Assay - Final Resulted Assessment/Plan Assessment/Plan Rectal bleeding CHF, chronic, EF less than 25% Status post ICD Type 2 diabetes Chronic anemia Severe proctocolitis of the rectosigmoid colon, rule out malignancy Cholelithiasis Small bilateral pleural effusions Cardiomegaly 2.5 cm infrarenal abdominal aortic aneurysm Hypokalemia Acute kidney injury most likely hemodynamically mediated Chronic kidney disease Plan NPO GI consult Cardiology consult Hold aspirin and Plavix No Lovenox Protonix 40 mg IV twice a day Full code Advance directives discussed for 20 minutes Plan of care discussed with the patient and the son at the bedside 03/11/2025: Dobutamine drip Norepinephrine drip Clear liquid diet GI evaluation in progress Get the records from the gastro group regarding his last colonoscopy Cardiology consult Dr. Hope Monitor closely 03/12/2025: Tapered down the dopamine drip Continue dobutamine drip The patient was cleared by Cardiology for GI workup Hemoglobin is stable No need for blood transfusion Clear liquid diet 03/13/2025: Continue dobutamine drip He is on Levophed drip again Hemoglobin is stable Full liquid diet 03/14/2025: Pancytopenia: Discontinue Zosyn, order bone marrow biopsy Bacteremia: Continue vancomycin CHRISTOPHER/CKD HFrEF: Hypomagnesemia: Replace Continue Plavix Discontinue Lovenox Plan discussed with: Patient, Son My Orders Orders - KINDRA MENDOZA MD Procedure Category Date Status Time Transfer Orders XFER 03/13/25 Transmitted 16:39 * Radiologist Consult CONS 03/14/25 Transmitted 09:20 Magnesium Sulfate PHA 03/14/25 In Process 1gm/100ml 11:00 Date of Service: Mar 14, 2025 Billing Provider: KINDRA MENDOZA MD Common Visit Codes: [id number] INP/OBS CARE(HIGH) KINDRA MENDOZA MD Mar 14, 2025 11:36
--- NOTE | 2025-03-14 13:20 | DVHPN2 ---
Progress Note - Dictate Date Seen: Mar 14, 2025 Medical Necessity Reason Pt with a Central, PICC or Fol: Yes The following are medically ne: Hubbard Catheter Subjective No new complaints No active GI bleeding; hemoglobin stable at 9.1 S/P 1 unit PRBC Stool occult blood negative X 2 and Stool WBC negative Still on dobutamine drip and dopamine drip Platelets 81 White count is 1.8 Weak with low BP 81/33, patient is on IV dobutamine drip Blood c/s positive for G+ cocci on IV Abx Family at bedside stated pt had both EGD and Colonoscopy at [facility] within the last 1-2 yrs which were negative Patient appears to have pancytopenia which is more suggestive of a myelodysplastic syndrome or bone marrow suppression vital signs Vital Sign Date Time Temp Pulse Resp B/P (MAP) Pulse Ox O2 Delivery O2 Flow Rate FiO2 03/14/25 13:00 69 15 81/33 (49) 03/14/25 12:45 95 03/14/25 11:50 Room Air* 0 21 03/14/25 11:45 97.9 97.9 Total Intake and Output 03/13/25 03/13/25 03/14/25 15:00 23:00 07:00 Intake Total 282.10 ml 1763.35 ml 1159.65 ml Output Total 450 ml 750 ml Balance 282.10 ml 1313.35 ml 409.65 ml medications Current Medications Medications Dose Ordered Sig/Meenu Route Start Time Stop Time Status Last Admin Dose Admin Norepinephrine Bitartrate 250 ml @ 3.75 mls/hr Q24H IV 03/09/25 10:30 03/13/25 23:41 7.5 MLS/HR Acetaminophen/ Hydrocodone Bitart 1 tab Q4HP PRN PO 03/09/25 13:45 Ondansetron HCl 4 mg Q4HP PRN IV 03/09/25 13:45 03/12/25 13:47 4 MG Acetaminophen 650 mg Q6HP PRN PO 03/09/25 13:45 03/12/25 16:22 650 MG Morphine Sulfate 2 mg Q4HPRN PRN IV 03/09/25 13:45 Nitroglycerin 0.4 mg Q5MINP PRN SL 03/09/25 13:45 Morphine Sulfate 2 mg Q30M PRN IV 03/09/25 13:45 Diagnostic Test (Pha) 1 strip ACHS 03/09/25 17:00 03/14/25 10:40 1 STRIP Insulin Human Regular ACHS SC 03/09/25 17:00 03/14/25 10:41 3 UNITS Dextrose 50 ml UD PRN IV 03/09/25 13:45 Dobutamine HCl/ Dextrose 250 ml @ 8.7 mls/hr Q24H IV 03/09/25 13:45 03/13/25 23:42 8.7 MLS/HR Atorvastatin Calcium 20 mg HS PO 03/09/25 22:00 03/13/25 22:23 20 MG Clopidogrel Bisulfate 75 mg DAILY PO 03/10/25 10:00 03/14/25 08:46 75 MG Insulin Glargine 10 units BID SC 03/09/25 22:00 03/14/25 10:00 10 UNITS Ivabradine 5 mg BID PO 03/09/25 22:00 03/14/25 08:46 5 MG Lorazepam 0.5 mg HS PO 03/09/25 22:00 03/13/25 22:23 0.5 MG Sacubitril/ Valsartan 1 tab DAILY PO 03/10/25 10:00 03/14/25 08:46 1 TAB Tamsulosin HCl 0.4 mg BID PO 03/09/25 22:00 03/14/25 08:46 0.4 MG Patient Own Medication 1 tab DAILY PO 03/10/25 10:00 Magnesium Oxide 400 mg DAILY PO 03/10/25 10:00 03/14/25 08:46 400 MG Pramipexole Dihydrochloride 0.5 mg DAILY PO 03/10/25 10:00 03/14/25 10:40 0.5 MG Pantoprazole Sodium 40 mg BID IV 03/10/25 22:00 03/14/25 08:46 40 MG Vancomycin HCl 0 ml @ 0 mls/hr UD IV 03/12/25 06:45 objective General Appearance: Alert, Oriented X3, No acute distress; weak and lethargic Lungs: Clear to auscultation, Normal air movement Cardiovascular: Regular rate, Normal S1, Normal S2, No murmurs Extremities: No edema laboratory and microbiology Laboratory Tests 03/14/25 05:55 Test 03/14/25 05:55 Range/Units Serum Glucose 80 74-106 mg/dL Problems(with codes): (1) Pancytopenia (2) GI bleed (3) Proctocolitis (4) CHF (congestive heart failure) (5) Severe anemia Prognosis Plan Continue supportive care Continue to monitor labs IV Protonix 40 mg daily Diet as tolerated Bone marrow biopsy possibly by IR rule out myelodysplastic syndrome and a hematology consultation At this time as the patient is not having any active GI bleeding and overall because of his poor physical condition I do not believe he needs a repeat panendoscopy I would recommend reviewing the previously done procedure records from gastro group Pancytopenia: Discontinue Zosyn, order bone marrow biopsy Bacteremia: Continue vancomycin CHRISTOPHER/CKD Hypomagnesemia: Replace Continue Plavix Discontinue Lovenox and Aspirin Overall this patient's condition is poor and prognosis is guarded Discuss code status with patient and family Dietary Evaluation Review Comments: 1) Encourage optimal PO intake 2) Advance to 60g CCHO cardiac diet when medically feasible 3) Follow-up with gastroenterology, cardiology, and nephrology 4) Continue to monitor I&O, labs, and skin integrity Expected Outcomes/Goals: 1) appetite and labs to improve 2) diet to advance 3) f/u in 3-5 days Plan discussed with: Patient, Spouse CC Plasma Assessment Blood Product Administration S: [id number] ERLIN JEAN MD Mar 14, 2025 13:20
[2025-03-14] MEDS: VANCOMYCIN 750MG KIT 100 ML IV ONE (15:54)
[2025-03-14] MEDS: CALCIUM GLUC 1,000mg/50ml-NS 50 ML IV ONE (22:12)
[2025-03-15] VITALS (60 sets, daily range): BP systolic 93–137; BP diastolic 35–69; PULSE 60–92; RESP 11–21; TEMP 98–98.7; O2SAT 92–100
[2025-03-15 05:44] LABS: Hemoglobin 8.9 g/dL (13.5-17.5)
[2025-03-15 05:55] LABS: Hematocrit 24.7 % (41.0-53.0); Mean Corpuscular Hemoglobin 31.8 pg (28.0-32.0); Mean Corpuscular Volume 88.7 fL (80.0-100.0); Nucleated Red Blood Cells % 0.3 %
[2025-03-15 06:04] LABS: Chloride 105 mmol/L (98-107); Potassium 3.9 mmol/L (3.5-5.1); Sodium 136 mmol/L (136-145)
[2025-03-15 06:07] LABS: Anion Gap 9 (5-15)
[2025-03-15 06:12] LABS: Calcium 8.0 mg/dL (8.7-10.4); Carbon Dioxide 22 mmol/L (20-31)
[2025-03-15 06:14] LABS: Alkaline Phosphatase 35 U/L (46-116); BUN/Creatinine Ratio 11.9 (10.0-20.0); Blood Urea Nitrogen 13 mg/dL (9-23); Magnesium 1.9 mg/dL (1.6-2.6); Total Protein 5.4 g/dL (5.7-8.2)
[2025-03-15 06:15] LABS: Alanine Aminotransferase 11 U/L (7-40); Albumin 2.6 g/dL (3.2-4.8); Bilirubin, Total 0.7 mg/dL (0.2-1.0)
[2025-03-15 06:51] LABS: Glucose 62 mg/dL (74-106)
--- NOTE | 2025-03-15 13:14 | DVHPN2 ---
Subjective Stable Off Levophed drip No bleeding Changes from previous H/P or p: Changes Eyes: No Pain, No Vision change, No Conjunctivae inflammation, No Eyelid inflammation, No Other, No Redness ENT: No Ear pain, No Ear discharge, No Nose pain, No Nose discharge, No Nose congestion, No Mouth pain, No Mouth swelling, No Throat pain, No Throat swelling, No Other Cardiovascular: No Chest Pain, No Palpitations, No Orthopnea, No Paroxysmal Noc. Dyspnea, No Edema, No Lt Headedness, No Other Respiratory: No Cough, No Dry, No Shortness of breath, No SOB with excertion, No Wheezing, No Hemoptysis, No Pleuritic Pain, No Sputum, No Other Gastrointestinal: No Nausea, No Vomiting, No Abdominal Pain, No Diarrhea, No Constipation, No Melena, No Hematochezia, No Other Genitourinary: No Dysuria, No Frequency, No Incontinence, No Hematuria, No Retention, No Other Musculoskeletal: No other, No neck pain, No shoulder pain, No arm pain, No back pain, No hand pain, No leg pain, No foot pain Skin: No Rash, No Lesions, No Jaundice, No Bruising, No Other Objective Vitals Vital Signs Date Time Temp Pulse Resp B/P (MAP) Pulse Ox O2 Delivery O2 Flow Rate FiO2 03/15/25 09:30 19 96 Room Air* 0 21 03/15/25 09:30 92 03/15/25 08:30 97/43 (61) 03/15/25 08:00 98.4 98.4 Intake/Output Intake and Output 03/15/25 07:00 Intake Total 1652.90 ml Output Total 1550 ml Balance 102.90 ml Intake Oral 960 ml IV Total 692.90 ml Output Urine Total 1550 ml # Bowel Movements 5 General Appearance: Alert, Oriented X3, No acute distress Lungs: Clear to auscultation, Normal air movement Cardiovascular: Regular rate, Normal S1, Normal S2, No murmurs Extremities: No edema Medications Current Medications Medications Dose Ordered Sig/Meenu Route Start Time Stop Time Status Last Admin Dose Admin Norepinephrine Bitartrate 250 ml @ 3.75 mls/hr Q24H IV 03/09/25 10:30 03/13/25 23:41 7.5 MLS/HR Acetaminophen/ Hydrocodone Bitart 1 tab Q4HP PRN PO 03/09/25 13:45 Ondansetron HCl 4 mg Q4HP PRN IV 03/09/25 13:45 03/12/25 13:47 4 MG Acetaminophen 650 mg Q6HP PRN PO 03/09/25 13:45 03/12/25 16:22 650 MG Morphine Sulfate 2 mg Q4HPRN PRN IV 03/09/25 13:45 Nitroglycerin 0.4 mg Q5MINP PRN SL 03/09/25 13:45 Morphine Sulfate 2 mg Q30M PRN IV 03/09/25 13:45 Diagnostic Test (Pha) 1 strip ACHS 03/09/25 17:00 03/15/25 11:37 1 STRIP Insulin Human Regular ACHS SC 03/09/25 17:00 03/14/25 17:05 3 UNITS Dextrose 50 ml UD PRN IV 03/09/25 13:45 Dobutamine HCl/ Dextrose 250 ml @ 8.7 mls/hr Q24H IV 03/09/25 13:45 03/15/25 02:11 8.7 MLS/HR Atorvastatin Calcium 20 mg HS PO 03/09/25 22:00 03/14/25 22:11 20 MG Clopidogrel Bisulfate 75 mg DAILY PO 03/10/25 10:00 03/14/25 08:46 75 MG Insulin Glargine 10 units BID SC 03/09/25 22:00 03/14/25 22:27 10 UNITS Ivabradine 5 mg BID PO 03/09/25 22:00 03/15/25 09:33 5 MG Lorazepam 0.5 mg HS PO 03/09/25 22:00 03/14/25 22:11 0.5 MG Sacubitril/ Valsartan 1 tab DAILY PO 03/10/25 10:00 03/15/25 10:47 1 TAB Tamsulosin HCl 0.4 mg BID PO 03/09/25 22:00 03/15/25 09:33 0.4 MG Patient Own Medication 1 tab DAILY PO 03/10/25 10:00 Magnesium Oxide 400 mg DAILY PO 03/10/25 10:00 03/15/25 09:33 400 MG Pramipexole Dihydrochloride 0.5 mg DAILY PO 03/10/25 10:00 03/15/25 10:47 0.5 MG Pantoprazole Sodium 40 mg BID IV 03/10/25 22:00 03/15/25 09:33 40 MG Vancomycin HCl 0 ml @ 0 mls/hr UD IV 03/12/25 06:45 Laboratory Results Laboratory Tests 03/15/25 05:16 Chemistry Test 03/15/25 05:16 Albumin 2.6 g/dL (3.2-4.8) L Calcium Level 8.0 mg/dL (8.7-10.4) L Magnesium Level 1.9 mg/dL (1.6-2.6) Total Protein 5.4 g/dL (5.7-8.2) L LFT Test 03/15/25 05:16 Alanine Aminotransferase (ALT) 11 U/L (7-40) Alkaline Phosphatase 35 U/L (46-116) L Aspartate Amino Transferase (AST) 25 U/L (13-40) Total Bilirubin 0.7 mg/dL (0.2-1.0) Urinalysis Test 03/09/25 12:34 03/12/25 20:30 Urine Hyaline Casts Few /lpf (0 - 2) Urine Color Yellow (Yellow) Urine Clarity Ex.turbid (Clear) Urine pH 6.0 (5.0-9.0) Urine Specific [place] 1.027 (1.001-1.035) Urine Protein 2+ (Negative) H Urine Ketones Trace (Negative) Urine Blood 3+ /uL (Negative) H Urine Nitrite Negative (Negative) Urine Bilirubin Negative (Negative) Urine Urobilinogen Normal mg/dL (Negative) Urine Leukocyte Esterase 2+ /uL (Negative) Urine RBC 224 /hpf (0 - 3) Urine Microscopic WBC 46 /HPF (0-3) H Urine Squamous Epithelial Cells None seen /hpf (<5) Urine Uric Acid Crystals Few /hpf (None Seen) Urine Bacteria Few /hpf (None Seen) H Urine Mucus Few (None Seen) Urine Glucose Normal mg/dL (Normal) Microbiology Microbiology Date/Time Source Procedure Growth Status 03/12/25 20:30 Urine - [place] Urine Culture - Final Enterococcus faecalis Complete 03/12/25 18:40 Blood Blood Culture - Preliminary NO GROWTH AFTER 48 HOURS OF INCUBATION. Resulted 03/10/25 16:50 Stool Stool Culture - Final Complete 03/10/25 16:50 Stool Shiga Toxin I & II - Final Complete 03/10/25 16:50 Stool Clostridium difficile Toxin Assay - Final Complete Assessment/Plan Assessment/Plan Rectal bleeding CHF, chronic, EF less than 25% Status post ICD Type 2 diabetes Chronic anemia Severe proctocolitis of the rectosigmoid colon, rule out malignancy Cholelithiasis Small bilateral pleural effusions Cardiomegaly 2.5 cm infrarenal abdominal aortic aneurysm Hypokalemia Acute kidney injury most likely hemodynamically mediated Chronic kidney disease Plan NPO GI consult Cardiology consult Hold aspirin and Plavix No Lovenox Protonix 40 mg IV twice a day Full code Advance directives discussed for 20 minutes Plan of care discussed with the patient and the son at the bedside 03/11/2025: Dobutamine drip Norepinephrine drip Clear liquid diet GI evaluation in progress Get the records from the gastro group regarding his last colonoscopy Cardiology consult Dr. Hope Monitor closely 03/12/2025: Tapered down the dopamine drip Continue dobutamine drip The patient was cleared by Cardiology for GI workup Hemoglobin is stable No need for blood transfusion Clear liquid diet 03/13/2025: Continue dobutamine drip He is on Levophed drip again Hemoglobin is stable Full liquid diet 03/14/2025: Pancytopenia: Discontinue Zosyn, order bone marrow biopsy Bacteremia: Continue vancomycin CHRISTOPHER/CKD HFrEF: Hypomagnesemia: Replace Continue Plavix Discontinue Lovenox 03/15/25: Downgrade to Tele Physical therapy Bone marrow biopsy Replace K+ and Mg prn Plan discussed with: Patient, Son My Orders Orders - KINDRA MENDOZA MD Procedure Category Date Status Time Transfer Orders XFER 03/15/25 Transmitted 12:58 Date of Service: Mar 15, 2025 Billing Provider: KINDRA MENDOZA MD Common Visit Codes: [id number] INP/OBS CARE(HIGH) KINDRA MENDOZA MD Mar 15, 2025 13:14
--- NOTE | 2025-03-15 13:51 | DVHPN2 ---
Progress Note - Dictate Date Seen: Mar 14, 2025 Medical Necessity Reason Pt with a Central, PICC or Fol: Yes The following are medically ne: Hubab[place] Catheter Subjective PT WELL KNOW TO ME NOW WITH ACTIVE RECTAL BLEED HX OF PROCTITIS MULTIPLE RECENT TRANSFUSIONS ALL ANTI COAGULANTS HAVE BEEN DISCONTINUED The patient with history of ischemic cardiomyopathy, depressed left ventricular ejection fraction, Bi-V AICD The patient with congestive heart failure, EF less than 20%. The patient recently had atrial fibrillation that required cardioversion as well. The patient also had recent coronary angiography, shows patent vessels. Not a candidate for any revascularization at this time. He is very compliant on his medication and also very compliant in terms of following his regimen at the congestive heart failure clinic. He has been doing extremely well and his weight has been very stable. His fluid status has been very stable as well. PERTINENT MEDICAL HISTORY: Significant for: * Ischemic cardiomyopathy. * Coronary artery disease and coronary artery bypass grafting. * Hypertension. * Hyperlipidemia. BIV AICD MR/TR REVIEW OF SYSTEMS: He denies any fever or chills, +hematochezia. No bleeding diathesis. No hematemesis or hemoptysis. No history of any liver disease. No history of lung disease. PT CLINICALLY STABLE FROM CARDIAC STAND POINT TO UNDERGO GI WORK UP vital signs Vital Sign Date Time Temp Pulse Resp B/P (MAP) Pulse Ox O2 Delivery O2 Flow Rate FiO2 03/15/25 12:00 20 97 Room Air* 0 21 03/15/25 12:00 60 03/15/25 08:30 97/43 (61) 03/15/25 08:00 98.4 98.4 Total Intake and Output 03/14/25 03/14/25 03/15/25 15:00 23:00 07:00 Intake Total 399.60 ml 999.6 ml 253.7 ml Output Total 750 ml 800 ml Balance 399.60 ml 249.6 ml -546.3 ml medications Current Medications Medications Dose Ordered Sig/Meenu Route Start Time Stop Time Status Last Admin Dose Admin Norepinephrine Bitartrate 250 ml @ 3.75 mls/hr Q24H IV 03/09/25 10:30 03/13/25 23:41 7.5 MLS/HR Acetaminophen/ Hydrocodone Bitart 1 tab Q4HP PRN PO 03/09/25 13:45 Ondansetron HCl 4 mg Q4HP PRN IV 03/09/25 13:45 03/12/25 13:47 4 MG Acetaminophen 650 mg Q6HP PRN PO 03/09/25 13:45 03/12/25 16:22 650 MG Morphine Sulfate 2 mg Q4HPRN PRN IV 03/09/25 13:45 Nitroglycerin 0.4 mg Q5MINP PRN SL 03/09/25 13:45 Morphine Sulfate 2 mg Q30M PRN IV 03/09/25 13:45 Diagnostic Test (Pha) 1 strip ACHS 03/09/25 17:00 03/15/25 11:37 1 STRIP Insulin Human Regular ACHS SC 03/09/25 17:00 03/14/25 17:05 3 UNITS Dextrose 50 ml UD PRN IV 03/09/25 13:45 Dobutamine HCl/ Dextrose 250 ml @ 8.7 mls/hr Q24H IV 03/09/25 13:45 03/15/25 02:11 8.7 MLS/HR Atorvastatin Calcium 20 mg HS PO 03/09/25 22:00 03/14/25 22:11 20 MG Clopidogrel Bisulfate 75 mg DAILY PO 03/10/25 10:00 03/14/25 08:46 75 MG Insulin Glargine 10 units BID SC 03/09/25 22:00 03/14/25 22:27 10 UNITS Ivabradine 5 mg BID PO 03/09/25 22:00 03/15/25 09:33 5 MG Lorazepam 0.5 mg HS PO 03/09/25 22:00 03/14/25 22:11 0.5 MG Sacubitril/ Valsartan 1 tab DAILY PO 03/10/25 10:00 03/15/25 10:47 1 TAB Tamsulosin HCl 0.4 mg BID PO 03/09/25 22:00 03/15/25 09:33 0.4 MG Patient Own Medication 1 tab DAILY PO 03/10/25 10:00 Magnesium Oxide 400 mg DAILY PO 03/10/25 10:00 03/15/25 09:33 400 MG Pramipexole Dihydrochloride 0.5 mg DAILY PO 03/10/25 10:00 03/15/25 10:47 0.5 MG Pantoprazole Sodium 40 mg BID IV 03/10/25 22:00 03/15/25 09:33 40 MG Vancomycin HCl 0 ml @ 0 mls/hr UD IV 03/12/25 06:45 objective PHYSICAL EXAMINATION: VITAL SIGNS: Blood pressure is 104/82, pulse of 80 and irregular. HEENT: Pupils are reactive. Funduscopic exam is benign. Sclerae anicteric. Oral mucosa moist. NECK: No JVD appreciated. Carotid pulses are 2+ symmetrical. No cervical adenopathy, no supraclavicular adenopathy. No nuchal rigidity. PULMONARY: Crackles at the bases. CARDIOVASCULAR: Regular rate. PMI is diffuse, laterally displaced however. ABDOMEN: Soft, nontender. Normal bowel sounds.STOOL GUAIAC POSITIVE, BRIGHT RED BLOOD SKIN: Unremarkable. EXTREMITIES: Unremarkable, other than 1+ edema, 2+ pulses. NEUROLOGIC: The patient is intact. laboratory and microbiology Laboratory Tests 03/15/25 05:16 Test 03/15/25 05:16 Range/Units Serum Glucose 62 L 74-106 mg/dL Problem List NOW WITH ACTIVE RECTAL BLEED HX OF PROCTITIS MULTIPLE RECENT TRANSFUSIONS ALL ANTI COAGULANTS HAVE BEEN DISCONTINUED The patient with history of ischemic cardiomyopathy, depressed left ventricular ejection fraction, Bi-V AICD The patient with congestive heart failure, EF less than 20%. The patient recently had atrial fibrillation that required cardioversion as well. The patient also had recent coronary angiography, shows patent vessels. Not a candidate for any revascularization at this time. He is very compliant on his medication and also very compliant in terms of following his regimen at the congestive heart failure clinic. He has been doing extremely well and his weight has been very stable. His fluid status has been very stable as well. PERTINENT MEDICAL HISTORY: Significant for: * Ischemic cardiomyopathy. * Coronary artery disease and coronary artery bypass grafting. * Hypertension. * Hyperlipidemia. BIV AICD MR/TR EF <20% REVIEW OF SYSTEMS: He denies any fever or chills, +hematochezia. No bleeding diathesis. No hematemesis or hemoptysis. No history of any liver disease. No history of lung disease. PT CLINICALLY STABLE FROM CARDIAC STAND POINT TO UNDERGO GI WORK UP PANCYTOPENIA Assessment/Plan TRANSFUSE MAY PROCEED WITH GI WORKUP PANCYTOPENIC UNCLEAR ETIOLOGY RETIC COUNT CONSIDER AMEE DIFFERENTIAL Dietary Evaluation Review Comments: 1) Encourage optimal PO intake 2) Advance to 60g CCHO cardiac diet when medically feasible 3) Follow-up with gastroenterology, cardiology, and nephrology 4) Continue to monitor I&O, labs, and skin integrity Expected Outcomes/Goals: 1) appetite and labs to improve 2) diet to advance 3) f/u in 3-5 days Plan discussed with: Patient Critical Care Time(min): 35 CC Plasma Assessment Blood Product Administration S: [id number] GILDA WOO MD Mar 15, 2025 13:51
--- NOTE | 2025-03-15 14:26 | DVHPN2 ---
Progress Note Date Seen: Mar 15, 2025 Resident Creating Document: ALCIDES RIBERA RESIDENT Medical Necessity Reason Pt with a Central, PICC or Fol: Yes The following are medically ne: [place] Catheter Subjective Review of Systems Patient seen and examined at bedside Denies any nausea or vomiting Last bowel movement this morning, brownish Tolerating diet Scheduled for bone marrow biopsy tomorrow Objective vital signs Vital Sign Date Time Temp Pulse Resp B/P (MAP) Pulse Ox O2 Delivery O2 Flow Rate FiO2 03/15/25 12:00 20 97 Room Air* 0 21 03/15/25 12:00 60 03/15/25 08:30 97/43 (61) 03/15/25 08:00 98.4 98.4 Total Intake and Output 03/14/25 03/14/25 03/15/25 15:00 23:00 07:00 Intake Total 399.60 ml 999.6 ml 253.7 ml Output Total 750 ml 800 ml Balance 399.60 ml 249.6 ml -546.3 ml medications Current Medications Medications Dose Ordered Sig/Meenu Route Start Time Stop Time Status Last Admin Dose Admin Norepinephrine Bitartrate 250 ml @ 3.75 mls/hr Q24H IV 03/09/25 10:30 03/13/25 23:41 7.5 MLS/HR Acetaminophen/ Hydrocodone Bitart 1 tab Q4HP PRN PO 03/09/25 13:45 Ondansetron HCl 4 mg Q4HP PRN IV 03/09/25 13:45 03/12/25 13:47 4 MG Acetaminophen 650 mg Q6HP PRN PO 03/09/25 13:45 03/12/25 16:22 650 MG Morphine Sulfate 2 mg Q4HPRN PRN IV 03/09/25 13:45 Nitroglycerin 0.4 mg Q5MINP PRN SL 03/09/25 13:45 Morphine Sulfate 2 mg Q30M PRN IV 03/09/25 13:45 Diagnostic Test (Pha) 1 strip ACHS 03/09/25 17:00 03/15/25 11:37 1 STRIP Insulin Human Regular ACHS SC 03/09/25 17:00 03/14/25 17:05 3 UNITS Dextrose 50 ml UD PRN IV 03/09/25 13:45 Dobutamine HCl/ Dextrose 250 ml @ 8.7 mls/hr Q24H IV 03/09/25 13:45 03/15/25 02:11 8.7 MLS/HR Atorvastatin Calcium 20 mg HS PO 03/09/25 22:00 03/14/25 22:11 20 MG Clopidogrel Bisulfate 75 mg DAILY PO 03/10/25 10:00 03/14/25 08:46 75 MG Insulin Glargine 10 units BID SC 03/09/25 22:00 03/14/25 22:27 10 UNITS Ivabradine 5 mg BID PO 03/09/25 22:00 03/15/25 09:33 5 MG Lorazepam 0.5 mg HS PO 03/09/25 22:00 03/14/25 22:11 0.5 MG Sacubitril/ Valsartan 1 tab DAILY PO 03/10/25 10:00 03/15/25 10:47 1 TAB Tamsulosin HCl 0.4 mg BID PO 03/09/25 22:00 03/15/25 09:33 0.4 MG Patient Own Medication 1 tab DAILY PO 03/10/25 10:00 Magnesium Oxide 400 mg DAILY PO 03/10/25 10:00 03/15/25 09:33 400 MG Pramipexole Dihydrochloride 0.5 mg DAILY PO 03/10/25 10:00 03/15/25 10:47 0.5 MG Pantoprazole Sodium 40 mg BID IV 03/10/25 22:00 03/15/25 09:33 40 MG Vancomycin HCl 0 ml @ 0 mls/hr UD IV 03/12/25 06:45 Examination General Appearance: Cooperative. Well developed. Pulmonary/Respiratory: Bilateral air entry. Crackles Cardiovascular/Chest: Regular rate and rhythm. Abdominal Exam: Normal bowel sounds. Soft. normal abdomen, no visible veins, Nontender. No hepatospenomegaly. No masses Neuro/Mental Status: A&O x2-3. Coherent. laboratory and microbiology Laboratory Tests 03/15/25 05:16 Test 03/15/25 05:16 Range/Units Serum Glucose 62 L 74-106 mg/dL Microbiology Date/Time Source Procedure Growth Status 03/12/25 20:30 Urine - [place] Urine Culture - Final Enterococcus faecalis Complete 03/12/25 18:40 Blood Blood Culture - Preliminary NO GROWTH AFTER 48 HOURS OF INCUBATION. Resulted 03/10/25 16:50 Stool Stool Culture - Final Complete 03/10/25 16:50 Stool Shiga Toxin I & II - Final Complete 03/10/25 16:50 Stool Clostridium difficile Toxin Assay - Final Complete Problem List/Assessment/Plan Problem List/Assessment/Plan Acute severe proctocolitis/proctosigmoiditis ? Stercoral colitis Mixed shock, septic and cardiogenic? 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 GI team will follow the patient. In case of any questions or concerns please feel free to reach out. Plan discussed with Dr. Harris Plan discussed with: Patient, Son, Other Dietary Evaluation Review Comments: 1) Encourage optimal PO intake 2) Advance to 60g CCHO cardiac diet when medically feasible 3) Follow-up with gastroenterology, cardiology, and nephrology 4) Continue to monitor I&O, labs, and skin integrity Expected Outcomes/Goals: 1) appetite and labs to improve 2) diet to advance 3) f/u in 3-5 days CC Plasma Assessment Blood Product Administration S: [id number] ALCIDES RIBERA RESIDENT Mar 15, 2025 14:26
[2025-03-15] MEDS: VANCOMYCIN 500mg/100mL 100 ML IV ONE (15:40)
[2025-03-15] MEDS: MIDAZOLAM HCL 2MG/2ML 2ml VIAL (1mg/ml) IV ONE (15:44)
[2025-03-15] MEDS: fentaNYL CITRATE 100 MCG/2 ML VL IV ONE (15:44)
[2025-03-16] VITALS (10 sets, daily range): BP systolic 92–126; BP diastolic 39–60; PULSE 54–87; RESP 16–18; TEMP 97.5–98.5; O2SAT 94–98
[2025-03-16 00:38] LABS: Hematocrit 23.5 % (41.0-53.0); Hemoglobin 8.2 g/dL (13.5-17.5)
[2025-03-16 05:59] LABS: Anion Gap 8 (5-15); Carbon Dioxide 24 mmol/L (20-31); Chloride 106 mmol/L (98-107); Potassium 3.7 mmol/L (3.5-5.1); Sodium 138 mmol/L (136-145)
[2025-03-16 06:04] LABS: Hematocrit 24.2 % (41.0-53.0); Hemoglobin 8.5 g/dL (13.5-17.5); Mean Corpuscular Hemoglobin 31.1 pg (28.0-32.0); Mean Corpuscular Volume 88.9 fL (80.0-100.0); Nucleated Red Blood Cells % 0.5 %
[2025-03-16 06:05] LABS: BUN/Creatinine Ratio 13.1 (10.0-20.0); Blood Urea Nitrogen 13 mg/dL (9-23); Magnesium 1.8 mg/dL (1.6-2.6)
[2025-03-16 06:07] LABS: Calcium 8.0 mg/dL (8.7-10.4); Glucose 51 mg/dL (74-106)
--- NOTE | 2025-03-16 09:18 | DVHPN2 ---
Subjective No new complaints Scheduled for bone marrow biopsy today White count 2.4, hemoglobin 8.5, platelets 96 Changes from previous H/P or p: Changes Eyes: No Pain, No Vision change, No Conjunctivae inflammation, No Eyelid inflammation, No Other, No Redness ENT: No Ear pain, No Ear discharge, No Nose pain, No Nose discharge, No Nose congestion, No Mouth pain, No Mouth swelling, No Throat pain, No Throat swelling, No Other Cardiovascular: No Chest Pain, No Palpitations, No Orthopnea, No Paroxysmal Noc. Dyspnea, No Edema, No Lt Headedness, No Other Respiratory: No Cough, No Dry, No Shortness of breath, No SOB with excertion, No Wheezing, No Hemoptysis, No Pleuritic Pain, No Sputum, No Other Gastrointestinal: No Nausea, No Vomiting, No Abdominal Pain, No Diarrhea, No Constipation, No Melena, No Hematochezia, No Other Genitourinary: No Dysuria, No Frequency, No Incontinence, No Hematuria, No Retention, No Other Musculoskeletal: No other, No neck pain, No shoulder pain, No arm pain, No back pain, No hand pain, No leg pain, No foot pain Skin: No Rash, No Lesions, No Jaundice, No Bruising, No Other Objective Vitals Vital Signs Date Time Temp Pulse Resp B/P (MAP) Pulse Ox O2 Delivery O2 Flow Rate FiO2 03/16/25 07:54 97.6 78 18 126/52 (76) 97 97.6 03/15/25 20:00 Room Air* 0 21 Intake/Output Intake and Output 03/16/25 06:59 Intake Total 678.3 ml Output Total 1650 ml Balance -971.7 ml Intake Oral 600 ml IV Total 78.3 ml Output Urine Total 1650 ml # Bowel Movements 1 General Appearance: Alert, Oriented X3, No acute distress Lungs: Clear to auscultation, Normal air movement Cardiovascular: Regular rate, Normal S1, Normal S2, No murmurs Extremities: No edema Medications Current Medications Medications Dose Ordered Sig/Meenu Route Start Time Stop Time Status Last Admin Dose Admin Norepinephrine Bitartrate 250 ml @ 3.75 mls/hr Q24H IV 03/09/25 10:30 03/13/25 23:41 7.5 MLS/HR Acetaminophen/ Hydrocodone Bitart 1 tab Q4HP PRN PO 03/09/25 13:45 Ondansetron HCl 4 mg Q4HP PRN IV 03/09/25 13:45 03/12/25 13:47 4 MG Acetaminophen 650 mg Q6HP PRN PO 03/09/25 13:45 03/12/25 16:22 650 MG Morphine Sulfate 2 mg Q4HPRN PRN IV 03/09/25 13:45 Nitroglycerin 0.4 mg Q5MINP PRN SL 03/09/25 13:45 Morphine Sulfate 2 mg Q30M PRN IV 03/09/25 13:45 Diagnostic Test (Pha) 1 strip ACHS 03/09/25 17:00 03/16/25 08:18 1 STRIP Insulin Human Regular ACHS SC 03/09/25 17:00 03/15/25 22:00 4 UNITS Dextrose 50 ml UD PRN IV 03/09/25 13:45 Dobutamine HCl/ Dextrose 250 ml @ 8.7 mls/hr Q24H IV 03/09/25 13:45 03/15/25 02:11 8.7 MLS/HR Atorvastatin Calcium 20 mg HS PO 03/09/25 22:00 03/15/25 22:35 20 MG Clopidogrel Bisulfate 75 mg DAILY PO 03/10/25 10:00 03/14/25 08:46 75 MG Insulin Glargine 10 units BID SC 03/09/25 22:00 03/15/25 22:00 10 UNITS Ivabradine 5 mg BID PO 03/09/25 22:00 03/15/25 22:00 5 MG Lorazepam 0.5 mg HS PO 03/09/25 22:00 03/15/25 22:34 0.5 MG Sacubitril/ Valsartan 1 tab DAILY PO 03/10/25 10:00 03/15/25 10:47 1 TAB Tamsulosin HCl 0.4 mg BID PO 03/09/25 22:00 03/15/25 22:35 0.4 MG Patient Own Medication 1 tab DAILY PO 03/10/25 10:00 Magnesium Oxide 400 mg DAILY PO 03/10/25 10:00 03/15/25 09:33 400 MG Pramipexole Dihydrochloride 0.5 mg DAILY PO 03/10/25 10:00 03/15/25 10:47 0.5 MG Pantoprazole Sodium 40 mg BID IV 03/10/25 22:00 03/15/25 22:34 40 MG Vancomycin HCl 0 ml @ 0 mls/hr UD IV 03/12/25 06:45 Laboratory Results Laboratory Tests 03/16/25 05:05 Chemistry Test 03/16/25 05:05 Calcium Level 8.0 mg/dL (8.7-10.4) L Magnesium Level 1.8 mg/dL (1.6-2.6) Urinalysis Test 03/09/25 12:34 03/12/25 20:30 Urine Hyaline Casts Few /lpf (0 - 2) Urine Color Yellow (Yellow) Urine Clarity Ex.turbid (Clear) Urine pH 6.0 (5.0-9.0) Urine Specific [place] 1.027 (1.001-1.035) Urine Protein 2+ (Negative) H Urine Ketones Trace (Negative) Urine Blood 3+ /uL (Negative) H Urine Nitrite Negative (Negative) Urine Bilirubin Negative (Negative) Urine Urobilinogen Normal mg/dL (Negative) Urine Leukocyte Esterase 2+ /uL (Negative) Urine RBC 224 /hpf (0 - 3) Urine Microscopic WBC 46 /HPF (0-3) H Urine Squamous Epithelial Cells None seen /hpf (<5) Urine Uric Acid Crystals Few /hpf (None Seen) Urine Bacteria Few /hpf (None Seen) H Urine Mucus Few (None Seen) Urine Glucose Normal mg/dL (Normal) Microbiology Microbiology Date/Time Source Procedure Growth Status 03/12/25 20:30 Urine - [place] Urine Culture - Final Enterococcus faecalis Complete 03/12/25 18:40 Blood Blood Culture - Preliminary NO GROWTH AFTER 72 HOURS OF INCUBATION. Resulted 03/10/25 16:50 Stool Stool Culture - Final Complete 03/10/25 16:50 Stool Shiga Toxin I & II - Final Complete 03/10/25 16:50 Stool Clostridium difficile Toxin Assay - Final Complete Assessment/Plan Assessment/Plan Rectal bleeding CHF, chronic, EF less than 25% Status post ICD Type 2 diabetes Chronic anemia Severe proctocolitis of the rectosigmoid colon, rule out malignancy Cholelithiasis Small bilateral pleural effusions Cardiomegaly 2.5 cm infrarenal abdominal aortic aneurysm Hypokalemia Acute kidney injury most likely hemodynamically mediated Chronic kidney disease Plan NPO GI consult Cardiology consult Hold aspirin and Plavix No Lovenox Protonix 40 mg IV twice a day Full code Advance directives discussed for 20 minutes Plan of care discussed with the patient and the son at the bedside 03/11/2025: Dobutamine drip Norepinephrine drip Clear liquid diet GI evaluation in progress Get the records from the gastro group regarding his last colonoscopy Cardiology consult Dr. Hope Monitor closely 03/12/2025: Tapered down the dopamine drip Continue dobutamine drip The patient was cleared by Cardiology for GI workup Hemoglobin is stable No need for blood transfusion Clear liquid diet 03/13/2025: Continue dobutamine drip He is on Levophed drip again Hemoglobin is stable Full liquid diet 03/14/2025: Pancytopenia: Discontinue Zosyn, order bone marrow biopsy Bacteremia: Continue vancomycin CHRISTOPHER/CKD HFrEF: Hypomagnesemia: Replace Continue Plavix Discontinue Lovenox 03/15/25: Downgrade to Tele Physical therapy Bone marrow biopsy Replace K+ and Mg prn 03/16/2025: Bone marrow biopsy to be done today Pancytopenia is stable, slowly improving Sepsis is improving Magnesium 1.8, give IV supplement Dobutamine drip Out of bed as tolerated Plan discussed with: Patient My Orders Orders - KINDRA MENDOZA MD Procedure Category Date Status Time Transfer Orders XFER 03/15/25 Transmitted 12:[address] 03/16/25 Taken Needle Placeme 08:[address] 03/16/25 Taken 08:39 Date of Service: Mar 16, 2025 Billing Provider: KINDRA MENDOZA MD Common Visit Codes: [id number] INP/OBS CARE(HIGH) KINDRA MENDOZA MD Mar 16, 2025 09:17
--- NOTE | 2025-03-16 09:58 | DVH ---
CT PELVIS WO CONTRAST, HISTORY: BONE MARROW BX COMPARISON: None PROCEDURE: Informed consent and time-out was performed before the procedure. Conscious sedation was p erformed by the interventional radiology nurse. The right posterior pelvic bone was marked, sterilize d, draped, and locally anesthetized using approximately 8 ml of 1% lidocaine. Axial CT images were us ed for localization. A 11 gauge [employer] Bone Biopsy kit was used to take 15 mL aspirate and 1 core sample. The biopsy needle was then removed. No immediate complications noted. FINDINGS: Axial CT images demonstrates biopsy needle within the right posterior pelvic bone. IMPRESSION: CT-guided biopsy of the right posterior pelvic bone. Workstation: [email or web address]
--- NOTE | 2025-03-16 09:58 | DVH ---
CT PELVIS WO CONTRAST, HISTORY: BONE MARROW BX COMPARISON: None PROCEDURE: Informed consent and time-out was performed before the procedure. Conscious sedation was p erformed by the interventional radiology nurse. The right posterior pelvic bone was marked, sterilize d, draped, and locally anesthetized using approximately 8 ml of 1% lidocaine. Axial CT images were us ed for localization. A 11 gauge [employer] Bone Biopsy kit was used to take 15 mL aspirate and 1 core sample. The biopsy needle was then removed. No immediate complications noted. FINDINGS: Axial CT images demonstrates biopsy needle within the right posterior pelvic bone. IMPRESSION: CT-guided biopsy of the right posterior pelvic bone. Workstation: [email or web address]
[2025-03-16] MEDS: fentaNYL CITRATE 100 MCG/2 ML VL ONE (13:37)
[2025-03-16] MEDS: MIDAZOLAM HCL 2MG/2ML 2ml VIAL (1mg/ml) ONE (13:37)
[2025-03-16] MEDS: CALCIUM GLUC 1,000mg/50ml-NS 50 ML IV ONE (13:38)
[2025-03-16] MEDS: MAGNESIUM SULFATE 1GM/100ML 200 ML IV ONE (13:38)
[2025-03-16] MEDS: MAGNESIUM SULFATE 1GM/100ML 100 ML IV SCH (14:02)
--- NOTE | 2025-03-16 14:09 | DVHPN2 ---
Progress Note - Dictate Date Seen: Mar 16, 2025 Medical Necessity Reason Pt with a Central, PICC or Fol: Yes The following are medically ne: [place] Catheter Subjective PT WELL KNOW TO ME NOW WITH ACTIVE RECTAL BLEED HX OF PROCTITIS MULTIPLE RECENT TRANSFUSIONS ALL ANTI COAGULANTS HAVE BEEN DISCONTINUED The patient with history of ischemic cardiomyopathy, depressed left ventricular ejection fraction, Bi-V AICD The patient with congestive heart failure, EF less than 20%. The patient recently had atrial fibrillation that required cardioversion as well. The patient also had recent coronary angiography, shows patent vessels. Not a candidate for any revascularization at this time. He is very compliant on his medication and also very compliant in terms of following his regimen at the congestive heart failure clinic. He has been doing extremely well and his weight has been very stable. His fluid status has been very stable as well. PERTINENT MEDICAL HISTORY: Significant for: * Ischemic cardiomyopathy. * Coronary artery disease and coronary artery bypass grafting. * Hypertension. * Hyperlipidemia. BIV AICD MR/TR REVIEW OF SYSTEMS: He denies any fever or chills, +hematochezia. No bleeding diathesis. No hematemesis or hemoptysis. No history of any liver disease. No history of lung disease. PT CLINICALLY STABLE FROM CARDIAC STAND POINT TO UNDERGO GI WORK UP vital signs Vital Sign Date Time Temp Pulse Resp B/P (MAP) Pulse Ox O2 Delivery O2 Flow Rate FiO2 03/16/25 14:02 103/59 03/16/25 13:24 97.5 65 18 98 97.5 03/15/25 20:00 Room Air* 0 21 Total Intake and Output 03/15/25 03/15/25 03/16/25 15:00 23:00 07:00 Intake Total 69.6 ml 0 ml 600 ml Output Total 550 ml 1100 ml Balance 69.6 ml -550 ml -500 ml medications Current Medications Medications Dose Ordered Sig/Meenu Route Start Time Stop Time Status Last Admin Dose Admin Acetaminophen/ Hydrocodone Bitart 1 tab Q4HP PRN PO 03/09/25 13:45 Ondansetron HCl 4 mg Q4HP PRN IV 03/09/25 13:45 03/12/25 13:47 4 MG Acetaminophen 650 mg Q6HP PRN PO 03/09/25 13:45 03/12/25 16:22 650 MG Morphine Sulfate 2 mg Q4HPRN PRN IV 03/09/25 13:45 Nitroglycerin 0.4 mg Q5MINP PRN SL 03/09/25 13:45 Morphine Sulfate 2 mg Q30M PRN IV 03/09/25 13:45 Diagnostic Test (Pha) 1 strip ACHS 03/09/25 17:00 03/16/25 11:30 1 STRIP Insulin Human Regular ACHS SC 03/09/25 17:00 03/15/25 22:00 4 UNITS Dextrose 50 ml UD PRN IV 03/09/25 13:45 Dobutamine HCl/ Dextrose 250 ml @ 8.7 mls/hr Q24H IV 03/09/25 13:45 03/16/25 14:02 8.7 MLS/HR Atorvastatin Calcium 20 mg HS PO 03/09/25 22:00 03/15/25 22:35 20 MG Clopidogrel Bisulfate 75 mg DAILY PO 03/10/25 10:00 03/14/25 08:46 75 MG Insulin Glargine 10 units BID SC 03/09/25 22:00 03/15/25 22:00 10 UNITS Ivabradine 5 mg BID PO 03/09/25 22:00 03/15/25 22:00 5 MG Lorazepam 0.5 mg HS PO 03/09/25 22:00 03/15/25 22:34 0.5 MG Sacubitril/ Valsartan 1 tab DAILY PO 03/10/25 10:00 03/16/25 10:23 1 TAB Tamsulosin HCl 0.4 mg BID PO 03/09/25 22:00 03/16/25 10:23 0.4 MG Patient Own Medication 1 tab DAILY PO 03/10/25 10:00 Magnesium Oxide 400 mg DAILY PO 03/10/25 10:00 03/16/25 10:23 400 MG Pramipexole Dihydrochloride 0.5 mg DAILY PO 03/10/25 10:00 03/16/25 10:23 0.5 MG Pantoprazole Sodium 40 mg BID IV 03/10/25 22:00 03/16/25 10:22 40 MG Vancomycin HCl 0 ml @ 0 mls/hr UD IV 03/12/25 06:45 objective PHYSICAL EXAMINATION: VITAL SIGNS: Blood pressure is 104/82, pulse of 80 and irregular. HEENT: Pupils are reactive. Funduscopic exam is benign. Sclerae anicteric. Oral mucosa moist. NECK: No JVD appreciated. Carotid pulses are 2+ symmetrical. No cervical adenopathy, no supraclavicular adenopathy. No nuchal rigidity. PULMONARY: Crackles at the bases. CARDIOVASCULAR: Regular rate. PMI is diffuse, laterally displaced however. ABDOMEN: Soft, nontender. Normal bowel sounds.STOOL GUAIAC POSITIVE, BRIGHT RED BLOOD SKIN: Unremarkable. EXTREMITIES: Unremarkable, other than 1+ edema, 2+ pulses. NEUROLOGIC: The patient is intact. laboratory and microbiology Laboratory Tests 03/16/25 05:05 Test 03/16/25 05:05 Range/Units Serum Glucose 51 L 74-106 mg/dL Problem List NOW WITH ACTIVE RECTAL BLEED HX OF PROCTITIS MULTIPLE RECENT TRANSFUSIONS ALL ANTI COAGULANTS HAVE BEEN DISCONTINUED The patient with history of ischemic cardiomyopathy, depressed left ventricular ejection fraction, Bi-V AICD The patient with congestive heart failure, EF less than 20%. The patient recently had atrial fibrillation that required cardioversion as well. The patient also had recent coronary angiography, shows patent vessels. Not a candidate for any revascularization at this time. He is very compliant on his medication and also very compliant in terms of following his regimen at the congestive heart failure clinic. He has been doing extremely well and his weight has been very stable. His fluid status has been very stable as well. PERTINENT MEDICAL HISTORY: Significant for: * Ischemic cardiomyopathy. * Coronary artery disease and coronary artery bypass grafting. * Hypertension. * Hyperlipidemia. BIV AICD MR/TR EF <20% REVIEW OF SYSTEMS: He denies any fever or chills, +hematochezia. No bleeding diathesis. No hematemesis or hemoptysis. No history of any liver disease. No history of lung disease. PT CLINICALLY STABLE FROM CARDIAC STAND POINT TO UNDERGO GI WORK UP PANCYTOPENIA Assessment/Plan TRANSFUSE MAY PROCEED WITH GI WORKUP PANCYTOPENIC UNCLEAR ETIOLOGY RETIC COUNT CONSIDER AMEE DIFFERENTIAL ? WHY BONE MARROW BX RETIC COUNT WAS NORMAL TRANSFUSE CHECK CBC AND BNP DC IN AM Dietary Evaluation Review Comments: 1) Encourage optimal PO intake 2) Advance to 60g CCHO cardiac diet when medically feasible 3) Follow-up with gastroenterology, cardiology, and nephrology 4) Continue to monitor I&O, labs, and skin integrity Expected Outcomes/Goals: 1) appetite and labs to improve 2) diet to advance 3) f/u in 3-5 days Plan discussed with: Patient CC Plasma Assessment Blood Product Administration S: [id number] GILDA WOO MD Mar 16, 2025 14:09
--- NOTE | 2025-03-16 14:43 | DVHDS2 ---
Discharge Summary Date of Admission Mar 09, 2025 at 13:36 Date of Discharge: Mar 16, 2025 Admitting Diagnosis GI BLEED Labs/Diagnostic Data: Laboratory Results Test 03/16/25 12:45 03/16/25 05:05 03/15/25 05:16 03/12/25 20:30 POC Glucose 94 mg/dl (70-106) White Blood Count 2.4 10^3/uL (4.4-10.8) Red Blood Count 2.72 10^6/uL (4.5-5.90) Hemoglobin 8.5 g/dL (13.5-17.5) Hematocrit 24.2 % (41.0-53.0) Mean Corpuscular Volume 88.9 fL (80.0-100.0) Mean Corpuscular Hemoglobin 31.1 pg (28.0-32.0) Mean Corpuscular Hemoglobin Concent 35.0 g/dL (32.0-36.0) Red Cell Distribution Width 17.8 % (11.8-14.3) Platelet Count 96 10^3/uL (140-450) Mean Platelet Volume 7.2 fL (6.9-10.8) Neutrophils (%) (Auto) 61.6 % (37.0-80.0) Lymphocytes (%) (Auto) 30.9 % (10.0-50.0) Monocytes (%) (Auto) 3.9 % (0.0-12.0) Eosinophils (%) (Auto) 3.1 % (0.0-7.0) Basophils (%) (Auto) 0.5 % (0.0-2.0) Neutrophils # (Auto) 1.5 10 ^3/uL (1.6-8.6) Lymphocytes # (Auto) 0.7 10 ^3/uL (0.4-5.4) Monocytes # (Auto) 0.1 10 ^3/uL (0-1.3) Eosinophils # (Auto) 0.1 10 ^3/uL (0-0.8) Basophils # (Auto) 0 10 ^3/uL (0-0.2) Nucleated Red Blood Cells 0.5 % Sodium Level 138 mmol/L (136-145) Potassium Level 3.7 mmol/L (3.5-5.1) Chloride Level 106 mmol/L (98-107) Carbon Dioxide Level 24 mmol/L (20-31) Anion Gap 8 (5-15) Blood Urea Nitrogen 13 mg/dL (9-23) Creatinine 0.99 mg/dL (0.700-1.30) Glomerular Filtration Rate Calc 73 mL/min (>90) BUN/Creatinine Ratio 13.1 (10.0-20.0) Serum Glucose 51 mg/dL (74-106) Calcium Level 8.0 mg/dL (8.7-10.4) Magnesium Level 1.8 mg/dL (1.6-2.6) Random Vancomycin Level 13.3 ug/mL (5-10) Total Bilirubin 0.7 mg/dL (0.2-1.0) Aspartate Amino Transferase (AST) 25 U/L (13-40) Alanine Aminotransferase (ALT) 11 U/L (7-40) Alkaline Phosphatase 35 U/L (46-116) Total Protein 5.4 g/dL (5.7-8.2) Albumin 2.6 g/dL (3.2-4.8) Urine Color Yellow (Yellow) Urine Clarity Ex.turbid (Clear) Urine pH 6.0 (5.0-9.0) Urine Specific [place] 1.027 (1.001-1.035) Urine Protein 2+ (Negative) Urine Ketones Trace (Negative) Urine Blood 3+ /uL (Negative) Urine Nitrite Negative (Negative) Urine Bilirubin Negative (Negative) Urine Urobilinogen Normal mg/dL (Negative) Urine Leukocyte Esterase 2+ /uL (Negative) Urine RBC 224 /hpf (0 - 3) Urine Microscopic WBC 46 /HPF (0-3) Urine Squamous Epithelial Cells None seen /hpf (<5) Urine Uric Acid Crystals Few /hpf (None Seen) Urine Bacteria Few /hpf (None Seen) Urine Mucus Few (None Seen) Urine Glucose Normal mg/dL (Normal) Stool Occult Blood Negative (Negative) Stool Occult Blood Sample #3 (Negative) Test 03/12/25 17:24 03/12/25 05:08 03/11/25 18:19 03/10/25 03:47 Lactic Acid Level 1.4 mmol/L (0.4-2.0) Differential Total Cells Counted 100.0 (100) Neutrophils % (Manual) 72 (37.0-80.0) Band Neutrophils % (Manual) 0 Lymphocytes % (Manual) 21 (10.0-50.0) Monocytes % (Manual) 7 (0-12) Eosinophils % (Manual) 0 (0-7) Basophils % (Manual) 0 (0.0-2.0) Metamyelocytes % (manual) 0 Myelocytes % (Manual) 0 Promyelocytes % (Manual) 0 Blast Cells % (Manual) 0 Reactive Lymphocytes 0 Platelet Estimate Decreased Stool for White Cells None seen Hemoglobin A1c 6.6 % A1C (<5.7) Test 03/09/25 12:34 03/09/25 09:30 Urine Hyaline Casts Few /lpf (0 - 2) Prothrombin Time 13.6 sec (9.3-11.8) Prothrombin Time INR 1.32 (0.9-1.15) Activated Partial Thromboplast Time 28.5 SEC (24.5-34.5) B-Type Natriuretic Peptide 2751.63 pg/mL (0-100) Other Laboratory Tests 03/16/25 05:05 Brief Hx & Hospital Course: NOW WITH ACTIVE RECTAL BLEED HX OF PROCTITIS MULTIPLE RECENT TRANSFUSIONS ALL ANTI COAGULANTS HAVE BEEN DISCONTINUED The patient with history of ischemic cardiomyopathy, depressed left ventricular ejection fraction, Bi-V AICD The patient with congestive heart failure, EF less than 20%. The patient recently had atrial fibrillation that required cardioversion as well. The patient also had recent coronary angiography, shows patent vessels. Not a candidate for any revascularization at this time. He is very compliant on his medication and also very compliant in terms of following his regimen at the congestive heart failure clinic. He has been doing extremely well and his weight has been very stable. His fluid status has been very stable as well. PERTINENT MEDICAL HISTORY: Significant for: * Ischemic cardiomyopathy. * Coronary artery disease and coronary artery bypass grafting. * Hypertension. * Hyperlipidemia. BIV AICD MR/TR EF <20% REVIEW OF SYSTEMS: He denies any fever or chills, +hematochezia. No bleeding diathesis. No hematemesis or hemoptysis. No history of any liver disease. No history of lung disease. PT CLINICALLY STABLE FROM CARDIAC STAND POINT TO UNDERGO GI WORK UP PANCYTOPENIA Assessment/Plan TRANSFUSE MAY PROCEED WITH GI WORKUP PANCYTOPENIC UNCLEAR ETIOLOGY RETIC COUNT CONSIDER AMEE DIFFERENTIAL ? WHY BONE MARROW BX RETIC COUNT WAS NORMAL TRANSFUSE CHECK CBC AND BNP DC IN AM Consults/Reason for consult GI Condition at Discharge: Poor Final Diagnosis/Problems List ACTIVE RECTAL BLEED HX OF PROCTITIS MULTIPLE RECENT TRANSFUSIONS ALL ANTI COAGULANTS HAVE BEEN DISCONTINUED The patient with history of ischemic cardiomyopathy, depressed left ventricular ejection fraction, Bi-V AICD The patient with congestive heart failure, EF less than 20%. The patient recently had atrial fibrillation that required cardioversion as well. The patient also had recent coronary angiography, shows patent vessels. Not a candidate for any revascularization at this time. He is very compliant on his medication and also very compliant in terms of following his regimen at the congestive heart failure clinic. He has been doing extremely well and his weight has been very stable. His fluid status has been very stable as well. PERTINENT MEDICAL HISTORY: Significant for: * Ischemic cardiomyopathy. * Coronary artery disease and coronary artery bypass grafting. * Hypertension. * Hyperlipidemia. BIV AICD MR/TR EF <20% REVIEW OF SYSTEMS: He denies any fever or chills, +hematochezia. No bleeding diathesis. No hematemesis or hemoptysis. No history of any liver disease. No history of lung disease. PT CLINICALLY STABLE FROM CARDIAC STAND POINT TO UNDERGO GI WORK UP PANCYTOPENIA Discharge Disposition: Home Discharge Instruct/Medications Diet: Cardiac 2g Na,low cholest Activity: Light activity Follow Up/Referral: 1 WEEK Medications: CONT HOME MEDS HOLD ALL ANTICOAGULANTS Scheduled Aspirin (Aspirin), 1 TAB PO DAILY, (Reported) Atorvastatin Calcium (Lipitor), 1 TAB PO HS, (Reported) Bumetanide (Bumex), 1 TAB PO DAILY, (Reported) Cetirizine Hcl (Zyrtec Allergy), 1 TAB PO DAILY, (Reported) Clopidogrel Bisulfate (Plavix), 1 TAB PO DAILY, (Reported) Insulin Glargine (Lantus), 10 UNIT SC BID, (Reported) Ivabradine Hydrochloride (Corlanor), 1 TAB PO BID, (Reported) Lorazepam (Ativan Tablet), 1 TAB PO HS, (Reported) Magnesium Oxide (Magnesium Oxide), 1 TAB PO DAILY, (Reported) Potassium Chloride (Klor-Con M10), 1 TAB PO DAILY, (Reported) Pramipexole Dihydrochloride (Mirapex), 1 TAB PO DAILY, (Reported) Sacubitril-Valsartan (Entresto 24-26 mg), 1 TAB PO DAILY, (Reported) Tamsulosin Hcl (Flomax), 1 CAP PO BID, (Reported) Discharge Statement: "Patient was advised to return to the ER or call 911 if any headaches, dizziness, shortness of breath, chest pain, abdominal pain, bleeding, fevers, or worsening of medical condition. Patient was counseled about treatment plan, medications, possible side effects, patientverbalized understanding. All questions were answered to the best of my ability. This discharge took greater then 30 minutes in planning, reviewing documentation, counseling the patient, and discussing with other team members." ASSESSMENT ASSESSMENT Assessment GILDA WOO MD Mar 16, 2025 14:43
[2025-03-16] MEDS: VANCOMYCIN 1GM/250ML KIT 250 ML IV ONE (15:00)
--- NOTE | 2025-03-16 15:28 | DVHPN2 ---
Progress Note Date Seen: Mar 16, 2025 Resident Creating Document: ALCIDES RIBERA RESIDENT Medical Necessity Reason Pt with a Central, PICC or Fol: Yes The following are medically ne: [place] Catheter Subjective Review of Systems Patient seen and examined at bedside S/p bone marrow biopsy Denies any nausea or vomiting Last bowel movement this a.m., brownish Received another PRBC Objective vital signs Vital Sign Date Time Temp Pulse Resp B/P (MAP) Pulse Ox O2 Delivery O2 Flow Rate FiO2 03/16/25 14:02 103/59 03/16/25 13:24 97.5 65 18 98 97.5 03/15/25 20:00 Room Air* 0 21 Total Intake and Output 03/15/25 03/15/25 03/16/25 15:00 23:00 07:00 Intake Total 69.6 ml 0 ml 600 ml Output Total 550 ml 1100 ml Balance 69.6 ml -550 ml -500 ml medications Current Medications Medications Dose Ordered Sig/Meenu Route Start Time Stop Time Status Last Admin Dose Admin Acetaminophen/ Hydrocodone Bitart 1 tab Q4HP PRN PO 03/09/25 13:45 Ondansetron HCl 4 mg Q4HP PRN IV 03/09/25 13:45 03/12/25 13:47 4 MG Acetaminophen 650 mg Q6HP PRN PO 03/09/25 13:45 03/12/25 16:22 650 MG Morphine Sulfate 2 mg Q4HPRN PRN IV 03/09/25 13:45 Nitroglycerin 0.4 mg Q5MINP PRN SL 03/09/25 13:45 Morphine Sulfate 2 mg Q30M PRN IV 03/09/25 13:45 Diagnostic Test (Pha) 1 strip ACHS 03/09/25 17:00 03/16/25 11:30 1 STRIP Insulin Human Regular ACHS SC 03/09/25 17:00 03/15/25 22:00 4 UNITS Dextrose 50 ml UD PRN IV 03/09/25 13:45 Dobutamine HCl/ Dextrose 250 ml @ 8.7 mls/hr Q24H IV 03/09/25 13:45 03/16/25 14:02 8.7 MLS/HR Atorvastatin Calcium 20 mg HS PO 03/09/25 22:00 03/15/25 22:35 20 MG Clopidogrel Bisulfate 75 mg DAILY PO 03/10/25 10:00 03/14/25 08:46 75 MG Insulin Glargine 10 units BID SC 03/09/25 22:00 03/15/25 22:00 10 UNITS Ivabradine 5 mg BID PO 03/09/25 22:00 03/15/25 22:00 5 MG Lorazepam 0.5 mg HS PO 03/09/25 22:00 03/15/25 22:34 0.5 MG Sacubitril/ Valsartan 1 tab DAILY PO 03/10/25 10:00 03/16/25 10:23 1 TAB Tamsulosin HCl 0.4 mg BID PO 03/09/25 22:00 03/16/25 10:23 0.4 MG Patient Own Medication 1 tab DAILY PO 03/10/25 10:00 Magnesium Oxide 400 mg DAILY PO 03/10/25 10:00 03/16/25 10:23 400 MG Pramipexole Dihydrochloride 0.5 mg DAILY PO 03/10/25 10:00 03/16/25 10:23 0.5 MG Pantoprazole Sodium 40 mg BID IV 03/10/25 22:00 03/16/25 10:22 40 MG Vancomycin HCl 0 ml @ 0 mls/hr UD IV 03/12/25 06:45 Examination General Appearance: Cooperative. Well developed. Pulmonary/Respiratory: Bilateral air entry. Crackles Cardiovascular/Chest: Regular rate and rhythm. Abdominal Exam: Normal bowel sounds. Soft. normal abdomen, no visible veins, Nontender. No hepatospenomegaly. No masses Neuro/Mental Status: A&O x2-3. Coherent. laboratory and microbiology Laboratory Tests 03/16/25 05:05 Test 03/16/25 05:05 Range/Units Serum Glucose 51 L 74-106 mg/dL Microbiology Date/Time Source Procedure Growth Status 03/12/25 20:30 Urine - [place] Port Urine Culture - Final Enterococcus faecalis Complete 03/12/25 18:40 Blood Blood Culture - Preliminary NO GROWTH AFTER 72 HOURS OF INCUBATION. Resulted 03/10/25 16:50 Stool Stool Culture - Final Complete 03/10/25 16:50 Stool Shiga Toxin I & II - Final Complete 03/10/25 16:50 Stool Clostridium difficile Toxin Assay - Final Complete Labs and/or images reviewed: Labs reviewed by me, Image(s) reviewed by me Problem List/Assessment/Plan Problem List/Assessment/Plan Acute severe proctocolitis/proctosigmoiditis ? Stercoral colitis Mixed shock, septic and cardiogenic? 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 GI team will follow the patient. In case of any questions or concerns please feel free to reach out. Plan discussed with Dr. Harris Plan discussed with: Patient, Other (RN) Dietary Evaluation Review Comments: 1) Encourage optimal PO intake 2) Advance to 60g CCHO cardiac diet when medically feasible 3) Follow-up with gastroenterology, cardiology, and nephrology 4) Continue to monitor I&O, labs, and skin integrity Expected Outcomes/Goals: 1) appetite and labs to improve 2) diet to advance 3) f/u in 3-5 days CC Plasma Assessment Blood Product Administration S: [id number] ALCIDES RIBERA RESIDENT Mar 16, 2025 15:28
== END 2025-03-16 20:20 | disposition home health service (06) | DRG 871 ==
LOC: ER 09:07 → OVERFLOW 13:36 → ICU CENTRL 03-11 08:39 → TELE-CENTR 03-15 14:52
PROVIDERS: ADMIT Internal Medicine Geriatric Medicine; ATTEND Internal Medicine Geriatric Medicine
PROC: 30233N1 Transfusion of Nonautologous Red Blood Cells into Peripheral Vein, Percutaneous Approach (ICD-10-PCS; principal; 2025-03-09)
PROC: 07DR3ZX Extraction of Iliac Bone Marrow, Percutaneous Approach, Diagnostic (ICD-10-PCS; 2025-03-16)
DX: A41.9 Sepsis, unspecified organism (principal); I50.23 Acute on chronic systolic (congestive) heart failure; R65.21 Severe sepsis with septic shock; R57.0 Cardiogenic shock; K51.311 Ulcerative (chronic) rectosigmoiditis with rectal bleeding; I13.0 Hypertensive heart and chronic kidney disease with heart failure and stage 1 through stage 4 chronic kidney disease, or unspecified chronic kidney disease; N17.9 Acute kidney failure, unspecified; D61.818 Other pancytopenia; D84.89 Other immunodeficiencies; K52.89 Other specified noninfective gastroenteritis and colitis; E11.22 Type 2 diabetes mellitus with diabetic chronic kidney disease; E11.65 Type 2 diabetes mellitus with hyperglycemia; N18.9 Chronic kidney disease, unspecified; E87.6 Hypokalemia; E78.5 Hyperlipidemia, unspecified; I71.43 Infrarenal abdominal aortic aneurysm, without rupture; K63.89 Other specified diseases of intestine; I25.5 Ischemic cardiomyopathy; D64.9 Anemia, unspecified; I48.91 Unspecified atrial fibrillation; I25.10 Atherosclerotic heart disease of native coronary artery without angina pectoris; Z79.4 Long term (current) use of insulin; Z79.899 Other long term (current) drug therapy; Z95.1 Presence of aortocoronary bypass graft; Z95.810 Presence of automatic (implantable) cardiac defibrillator; Z79.02 Long term (current) use of antithrombotics/antiplatelets; Z79.82 Long term (current) use of aspirin
CPT/HCPCS: 10005; 36415; 71045; 72170; 72192; 74176; 77012; 80048; 80053; 80202; 81001; 82270; 82962; 83036; 83605; 83735; 83880; 85007; 85014; 85018; 85025; 85027; 85048; 85610; 85730; 86850; 86900; 86901; 86920; 86922; 87040; 87045; 87077; 87081; 87086; 87088; 87186; 87427; 87493; 93005; 96361; 96374; 97110; 97116; 97163; 97530; 99291; 99292; G0378; J1815; J2250; J2405; J2470; J2543; J3480; J3490

== ENCOUNTER 2025-03-18 08:14 | Outpatient (CLI) | payer MEDICARE ==
[2025-03-18] VITALS (9 sets, daily range): BP systolic 88–112; BP diastolic 41–49; PULSE 78–98; RESP 16; O2SAT 97
[2025-03-18] MEDS: DOBUTamine 1000MCG/ML 250 ML IV ONE ×2 (08:57→09:01)
[2025-03-18] MEDS: CYANOCOBALAMIN (B-12) 1000 MCG/1 ML VIAL ONE (11:22)
[2025-03-18] MEDS: BACITRACIN TOP OINT 1 UD PKG TOP ONE ×2 (11:27→12:08)
[2025-03-18] MEDS: CYANOCOBALAMIN (B-12) 1000 MCG/1 ML VIAL IM ONE (12:09)
== END 2025-03-18 17:00 | disposition home or self-care (01) ==
LOC: CHF HDHVI 08:14
PROVIDERS: ATTEND Internal Medicine Cardiovascular Disease
DX: I13.0 Hypertensive heart and chronic kidney disease with heart failure and stage 1 through stage 4 chronic kidney disease, or unspecified chronic kidney disease (principal); E11.22 Type 2 diabetes mellitus with diabetic chronic kidney disease; I50.43 Acute on chronic combined systolic (congestive) and diastolic (congestive) heart failure; N18.4 Chronic kidney disease, stage 4 (severe); I25.10 Atherosclerotic heart disease of native coronary artery without angina pectoris; I25.5 Ischemic cardiomyopathy; I25.2 Old myocardial infarction; I48.0 Paroxysmal atrial fibrillation; E11.42 Type 2 diabetes mellitus with diabetic polyneuropathy; E11.51 Type 2 diabetes mellitus with diabetic peripheral angiopathy without gangrene; E78.00 Pure hypercholesterolemia, unspecified; G47.33 Obstructive sleep apnea (adult) (pediatric); Z79.82 Long term (current) use of aspirin; Z79.4 Long term (current) use of insulin; Z95.810 Presence of automatic (implantable) cardiac defibrillator; Z87.891 Personal history of nicotine dependence
CPT/HCPCS: 96365; 96366; 96372; G0463; J1250; J1642; J3420

== ENCOUNTER 2025-03-23 08:25 | Outpatient (CLI) | payer MEDICARE ==
[2025-03-23] VITALS (9 sets, daily range): BP systolic 90–127; BP diastolic 44–56; PULSE 83–105; RESP 18; O2SAT 98
[~2025-03-23] VITALS: Ht 30.5 cm; Wt 59.0 kg
[2025-03-23] MEDS: DOBUTamine 1000MCG/ML 250 ML IV ONE ×2 (08:35→08:40)
[2025-03-23] MEDS: BACITRACIN TOP OINT 1 UD PKG TOP ONE ×2 (10:57→11:38)
== END 2025-03-23 17:00 | disposition home or self-care (01) ==
LOC: CHF HDHVI 08:25
PROVIDERS: ATTEND Internal Medicine Cardiovascular Disease
DX: I13.0 Hypertensive heart and chronic kidney disease with heart failure and stage 1 through stage 4 chronic kidney disease, or unspecified chronic kidney disease (principal); E11.22 Type 2 diabetes mellitus with diabetic chronic kidney disease; N18.4 Chronic kidney disease, stage 4 (severe); I50.43 Acute on chronic combined systolic (congestive) and diastolic (congestive) heart failure; I25.5 Ischemic cardiomyopathy; I25.10 Atherosclerotic heart disease of native coronary artery without angina pectoris; E03.9 Hypothyroidism, unspecified; E78.2 Mixed hyperlipidemia; G47.33 Obstructive sleep apnea (adult) (pediatric); I25.2 Old myocardial infarction; I48.0 Paroxysmal atrial fibrillation; E11.42 Type 2 diabetes mellitus with diabetic polyneuropathy; E11.51 Type 2 diabetes mellitus with diabetic peripheral angiopathy without gangrene; M19.90 Unspecified osteoarthritis, unspecified site; Z95.810 Presence of automatic (implantable) cardiac defibrillator; Z86.73 Personal history of transient ischemic attack (TIA), and cerebral infarction without residual deficits; Z79.899 Other long term (current) drug therapy; Z87.891 Personal history of nicotine dependence; Z95.1 Presence of aortocoronary bypass graft; Z79.01 Long term (current) use of anticoagulants; Z79.02 Long term (current) use of antithrombotics/antiplatelets; Z79.82 Long term (current) use of aspirin; Z79.4 Long term (current) use of insulin; Z79.84 Long term (current) use of oral hypoglycemic drugs; Z91.011 Allergy to milk products; Z91.013 Allergy to seafood
CPT/HCPCS: 96365; 96366; G0463; J1250; J1642

== ENCOUNTER 2025-03-25 08:34 | Outpatient (CLI) | payer MEDICARE ==
[~2025-03-25] VITALS: Ht 30.5 cm; Wt 59.0 kg
[2025-03-25] VITALS (9 sets, daily range): BP systolic 92–120; BP diastolic 43–54; PULSE 75–87; RESP 16; O2SAT 96
[2025-03-25] MEDS: DOBUTamine 1000MCG/ML 250 ML IV ONE ×2 (08:49→08:51)
[2025-03-25] MEDS: IRON SUCROSE 20 mg/ml 10ml VIAL IV ONE (09:05)
[2025-03-25] MEDS: BACITRACIN TOP OINT 1 UD PKG TOP ONE ×2 (09:05→11:55)
[2025-03-25] MEDS: IRON SUCROSE COMPLEX 110 ML IV ONE (10:00)
== END 2025-03-25 17:00 | disposition home or self-care (01) ==
LOC: CHF HDHVI 08:34
PROVIDERS: ATTEND Internal Medicine Cardiovascular Disease
DX: I13.0 Hypertensive heart and chronic kidney disease with heart failure and stage 1 through stage 4 chronic kidney disease, or unspecified chronic kidney disease (principal); E11.22 Type 2 diabetes mellitus with diabetic chronic kidney disease; I50.43 Acute on chronic combined systolic (congestive) and diastolic (congestive) heart failure; N18.4 Chronic kidney disease, stage 4 (severe); E11.42 Type 2 diabetes mellitus with diabetic polyneuropathy; E11.51 Type 2 diabetes mellitus with diabetic peripheral angiopathy without gangrene; E11.65 Type 2 diabetes mellitus with hyperglycemia; D50.0 Iron deficiency anemia secondary to blood loss (chronic); K92.2 Gastrointestinal hemorrhage, unspecified; I25.10 Atherosclerotic heart disease of native coronary artery without angina pectoris; I25.5 Ischemic cardiomyopathy; I25.2 Old myocardial infarction; I48.0 Paroxysmal atrial fibrillation; E78.2 Mixed hyperlipidemia; M19.90 Unspecified osteoarthritis, unspecified site; E03.9 Hypothyroidism, unspecified; G47.33 Obstructive sleep apnea (adult) (pediatric); Z79.4 Long term (current) use of insulin; Z79.82 Long term (current) use of aspirin; Z87.891 Personal history of nicotine dependence; Z79.02 Long term (current) use of antithrombotics/antiplatelets; Z79.899 Other long term (current) drug therapy; Z95.1 Presence of aortocoronary bypass graft; Z79.01 Long term (current) use of anticoagulants; Z79.84 Long term (current) use of oral hypoglycemic drugs; Z87.440 Personal history of urinary (tract) infections; Z95.0 Presence of cardiac pacemaker
CPT/HCPCS: 96365; 96366; 96368; G0463; J1250; J1642; J1756; 96367

== ENCOUNTER 2025-03-30 08:20 | Outpatient (CLI) | payer MEDICARE ==
[2025-03-30] VITALS (10 sets, daily range): BP systolic 91–132; BP diastolic 39–54; PULSE 73–94; RESP 16; O2SAT 95–98
[2025-03-30] MEDS: DOBUTamine 1000MCG/ML 250 ML IV ONE ×2 (08:52→08:55)
[2025-03-30] MEDS: BACITRACIN TOP OINT 1 UD PKG TOP ONE ×2 (12:00)
== END 2025-03-30 17:00 | disposition home or self-care (01) ==
LOC: CHF HDHVI 08:20
PROVIDERS: ATTEND Internal Medicine Cardiovascular Disease
DX: I13.0 Hypertensive heart and chronic kidney disease with heart failure and stage 1 through stage 4 chronic kidney disease, or unspecified chronic kidney disease (principal); E11.22 Type 2 diabetes mellitus with diabetic chronic kidney disease; I50.43 Acute on chronic combined systolic (congestive) and diastolic (congestive) heart failure; N18.4 Chronic kidney disease, stage 4 (severe); I25.10 Atherosclerotic heart disease of native coronary artery without angina pectoris; I25.5 Ischemic cardiomyopathy; I25.2 Old myocardial infarction; I48.0 Paroxysmal atrial fibrillation; D50.0 Iron deficiency anemia secondary to blood loss (chronic); K92.2 Gastrointestinal hemorrhage, unspecified; E11.42 Type 2 diabetes mellitus with diabetic polyneuropathy; E11.51 Type 2 diabetes mellitus with diabetic peripheral angiopathy without gangrene; E78.00 Pure hypercholesterolemia, unspecified; E03.9 Hypothyroidism, unspecified; Z79.82 Long term (current) use of aspirin; Z79.01 Long term (current) use of anticoagulants; Z79.4 Long term (current) use of insulin; Z79.899 Other long term (current) drug therapy; Z87.891 Personal history of nicotine dependence; Z95.810 Presence of automatic (implantable) cardiac defibrillator; Z86.73 Personal history of transient ischemic attack (TIA), and cerebral infarction without residual deficits
CPT/HCPCS: 96365; 96366; G0463; J1250; J1642

== ENCOUNTER 2025-04-06 17:29 | Inpatient (IN) | payer MEDICARE ==
[~2025-04-06] VITALS: Ht 165.1 cm; Wt 68.3 kg
[2025-04-06 17:47] VITALS: PULSE 97; RESP 19; O2SAT 95
--- NOTE | 2025-04-06 18:55 | DVH ---
CLINICAL HISTORY: sob TECHNIQUE: Single view of the chest was obtained. COMPARISON: XY CHEST XRAY 1 VIEW on DOS: 03/09/25, XY CHEST TWO VIEWS ROUTINE on DOS: 02/02/25, XY CHEST TWO VIEWS ROUTINE on DOS: 12/22/24, XY CHEST TWO VIEWS ROUTINE on DOS: 10/27/24, XY CHEST TWO VIEWS ROU ANCA on DOS: 09/22/24 FINDINGS: The heart size is mildly enlarged with pulmonary vascular congestion and small to moderate right and small left pleural effusions with atelectasis. A superimposed process is not excluded. There are midline sternotomy wires. A right central line terminates in the cavoatrial junction. Ther e is a left-sided pacemaker device. IMPRESSION: Pulmonary vascular congestion with small to moderate right and small left pleural effusion/atelectasi s. A superimposed process is not excluded.
[2025-04-06 19:17] LABS: Hematocrit 22.3 % (41.0-53.0); Hemoglobin 7.6 g/dL (13.5-17.5); Mean Corpuscular Hemoglobin 31.0 pg (28.0-32.0); Mean Corpuscular Volume 90.5 fL (80.0-100.0); Nucleated Red Blood Cells % 0.0 %
[2025-04-06 19:54] LABS: Alanine Aminotransferase 15 U/L (7-40); Albumin 3.5 g/dL (3.2-4.8); Alkaline Phosphatase 48 U/L (46-116); Anion Gap 11 (5-15); BUN/Creatinine Ratio 14.2 (10.0-20.0); Bilirubin, Total 0.7 mg/dL (0.2-1.0); Carbon Dioxide 21 mmol/L (20-31); Potassium 4.8 mmol/L (3.5-5.1); Total Protein 6.6 g/dL (5.7-8.2)
[2025-04-06 19:55] LABS: Blood Urea Nitrogen 27 mg/dL (9-23); Calcium 8.0 mg/dL (8.7-10.4); Chloride 97 mmol/L (98-107); Glucose 216 mg/dL (74-106); Sodium 129 mmol/L (136-145)
--- NOTE | 2025-04-06 20:26 | ED.PDOC ---
History of Present Illness HPI Comments Do not year old male brought in by EMS. Patient is having generalized weakness x2 days. Patient goes to dobutamine clinic twice a week. States that he received dobutamine and vitamin K. denies shortness of breath denies any chest pain. No nausea no vomiting no diarrhea. States he has just noticed increasing weakness over last 2-3 days. Chief Complaint: General Weakness Time Seen by MD: 18:05 Reviewed Notes: Nurses Notes Allergies: Coded Allergies: NO KNOWN ALLERGIES (Verified , 11/11/24) Home Meds Reported Medications Aspirin (Aspirin) 81 Mg Tab, 1 TAB PO DAILY for HEART ATTACK PREVENTION 11/12/24 Clopidogrel Bisulfate (Plavix) 75 Mg Tab, 1 TAB PO DAILY for HEART DISEASE 06/22/24 Lorazepam (ATIVAN TABLET) 0.5 Mg Tb, 1 TAB PO HS for ANXIETY 06/22/24 Insulin Glargine (Lantus) 100 Unit/Ml Inj, 10 UNIT SC BID for DIABETES 06/22/24 Bumetanide (Bumex) 2 Mg Tab, 1 TAB PO DAILY for EDEMA 01/27/24 Pramipexole Dihydrochloride (Mirapex) 0.5 Mg Tab, 1 TAB PO DAILY for PARKINSON'S DISEASE 09/28/22 Ivabradine Hydrochloride (Corlanor) 5 Mg Tab, 1 TAB PO BID for HEART FAILURE 09/28/22 Sacubitril-Valsartan (Entresto 24-26 mg) 1 Tab Tab, 1 TAB PO DAILY for HYPERTENSION 09/28/22 Magnesium Oxide (MAGNESIUM OXIDE) 400 Mg Tab, 1 TAB PO DAILY for SUPPLEMENT 09/28/22 Cetirizine Hcl (ZYRTEC ALLERGY) 10 Mg Tab, 1 TAB PO DAILY for ALLERGIES 02/20/21 Potassium Chloride (Klor-Con M10) 10 Meq Tab, 1 TAB PO DAILY for SUPPLEMENT 02/20/21 Tamsulosin Hcl (Flomax) 0.4 Mg Cap, 1 CAP PO BID for BPH 02/20/21 Atorvastatin Calcium (Lipitor) 20 Mg Tab, 1 TAB PO HS for HIGH CHOLESTEROL 08/15/10 Information Source: Patient Mode of Arrival: EMS Past Medical History PAST MEDICAL HISTORY: Anemia, CHF Surgical History: Denies all surgeries Family History Family History: Reviewed,noncontributory to illness, No family hx of Cancer, No family hx of DM, No family hx of Heart bony, No family hx of HTN, No family hx ofKidney bony, No family hx of Liver bony, No family hx of Lung bony, No family hx of Stroke Social History Smoker: Non-Smoker Alcohol: Denies ETOH Use Drugs: Denies Drug Use Lives In: Home Constitutional: reports: fatigue, malaise, weakness; denies: chills, diaphoresis, fever, sweats, others EENTM: denies: blurred vision, double vision, ear bleeding, ear discharge, ear drainage, ear pain, ear ringing, eye pain, eye redness, hearing loss, mouth pain, mouth swelling, nasal discharge, nose bleeding, nose congestion, nose pain, photophobia, tearing, throat pain, throat swelling, voice changes, others Respiratory: denies: cough, hemoptysis, orthopnea, SOB at rest, shortness of breath, SOB with excertion, stridor, wheezing, others Cardiovascular: denies: chest pain, dizzy spells, diaphoresis, Dyspnea on exertion, edema, irregular heart beat, left arm pain, lightheadedness, palpitations, PND, syncope, others Gastrointestinal: denies: abdomen distended, abdominal pain, blood streaked bowels, constipated, diarrhea, dysphagia, difficulty swallowing, hematemesis, melena, nausea, poor appetite, poor fluid intake, rectal bleeding, rectal pain, vomiting, others Genitourinary: denies: burning, dysuria, flank pain, frequency, hematuria, incontinence, penile discharge, penile sore, pain, testicle pain, testicle swelling, urgency, others Neurological: denies: dizziness, fainting, headache, left sided numbness, left sided weakness, numbness, paresthesia, pre-existing deficit, right sided numbness, right sided weakness, seizure, speech problems, tingling, tremors, weakness, others Musculoskeletal: denies: back pain, gout, joint pain, joint swelling, muscle pain, muscle stiffness, neck pain, others Integumetry: denies: bruises, change in color, change in hair/nails, dryness, laceration, lesions, lumps, rash, wounds, others Physical Exam General Appearance: Mild Distress, Thin HEENT: Normal ENT Inspection, Pharynx Normal, TMs Normal Neck: Full Range of Motion, Non-Tender, Normal, Normal Inspection Respiratory: Chest Non-Tender, Lungs Clear, No Accessory Muscle Use, No Respiratory Distress, Normal Breath Sounds Cardiovascular: No Edema, No JVD, No Murmur, No Gallop, Normal Peripheral Pulses, Regular Rate/Rhythm Breast Exam: Deferred Gastrointestinal: No Organomegaly, Non Tender, No Pulsatile Mass, Normal Bowel Sounds, Soft Genitalia: Deferred Pelvic: Deferred Rectal: Deferred Extremities: NOT DONE Musculoskeletal : Apperance: Normal Neurologic: Alert, talent program manager II-XII nml as Tested, No Motor Deficits, Normal Affect, Normal Mood, No Sensory Deficits Cerebellar Function: NOT DONE Reflexes: Normal Skin: Dry Lymphatic: No Adenopathy Was a procedure done? Was a procedure done?: No Differential Dx Considerations may include: Chronic anemia, NSTEMI, TIA, hypovolemia, hypotension, heart failure X-Ray, Labs, Meds, VS Vital Signs Date Time Temp Pulse Resp B/P (MAP) Pulse Ox O2 Delivery O2 Flow Rate FiO2 04/06/25 19:00 94 19 103/55 (71) 100 04/06/25 18:30 87 17 92/48 (63) 99 04/06/25 17:47 97 19 95 Nasal Cannula* 2 28 04/06/25 17:47 98.8 97 19 103/46 (65) 95 98.8 04/06/25 17:32 97.6 102 18 93/56 95 97.6 04/06/25 17:32 101 Lab Test 04/06/25 19:28 04/06/25 18:41 Range/Units Troponin I High Sensitivity 63 *H 57 *H </=54 ng/L White Blood Count 4.4 4.4-10.8 10^3/uL Red Blood Count 2.46 L 4.5-5.90 10^6/uL Hemoglobin 7.6 L 13.5-17.5 g/dL Hematocrit 22.3 L 41.0-53.0 % Mean Corpuscular Volume 90.5 80.0-100.0 fL Mean Corpuscular Hemoglobin 31.0 28.0-32.0 pg Mean Corpuscular Hemoglobin Concent 34.2 32.0-36.0 g/dL Red Cell Distribution Width 20.3 H 11.8-14.3 % Platelet Count 110 L 140-450 10^3/uL Mean Platelet Volume 7.2 6.9-10.8 fL Neutrophils (%) (Auto) 85.1 H 37.0-80.0 % Lymphocytes (%) (Auto) 9.6 L 10.0-50.0 % Monocytes (%) (Auto) 4.7 0.0-12.0 % Eosinophils (%) (Auto) 0.2 0.0-7.0 % Basophils (%) (Auto) 0.4 0.0-2.0 % Neutrophils # (Auto) 3.8 1.6-8.6 10 ^3/uL Lymphocytes # (Auto) 0.4 0.4-5.4 10 ^3/uL Monocytes # (Auto) 0.2 0-1.3 10 ^3/uL Eosinophils # (Auto) 0 0-0.8 10 ^3/uL Basophils # (Auto) 0 0-0.2 10 ^3/uL Nucleated Red Blood Cells 0.0 % Sodium Level 129 L 136-145 mmol/L Potassium Level 4.8 3.5-5.1 mmol/L Chloride Level 97 L 98-107 mmol/L Carbon Dioxide Level 21 20-31 mmol/L Anion Gap 11 5-15 Blood Urea Nitrogen 27 H 9-23 mg/dL Creatinine 1.90 H 0.700-1.30 mg/dL Glomerular Filtration Rate Calc 33 >90 mL/min BUN/Creatinine Ratio 14.2 10.0-20.0 Serum Glucose 216 H 74-106 mg/dL Lactic Acid Level 1.8 0.4-2.0 mmol/L Calcium Level 8.0 L 8.7-10.4 mg/dL Total Bilirubin 0.7 0.2-1.0 mg/dL Aspartate Amino Transferase (AST) 22 13-40 U/L Alanine Aminotransferase (ALT) 15 7-40 U/L Alkaline Phosphatase 48 46-116 U/L Ammonia < 10 L 11-32 umol/L B-Type Natriuretic Peptide 2947.19 0-100 pg/mL Total Protein 6.6 5.7-8.2 g/dL Albumin 3.5 3.2-4.8 g/dL X-Ray, Labs, Meds, VS Comment Patient will be admitted for elevated troponins, chronic anemia, hypotension Recommend possible ICU admission as patient may be needing dobutamine Cardiac evaluation due to elevated troponins Patient currently hemodynamically stable, states no chest pain. Time of 1ST Reevaluation: 20:24 Reevaluation 1ST: Improved Patient Education/Counseling: Diagnosis, Treatment Family Education/Counseling: Diagnosis, Treatment SEPSIS Sepsis Screen Date sepsis recognized/suspect: Apr 06, 2025 Time Sepsis recognized/suspect: 1746 Recent Procedure: No On Antibiotic Therapy: No Respiratory Rate >20: No Heart Rate >90: Yes Temp<36 C (96.8 F) or >38.3 C: No SBP <90 or MAP <65 mmHG: No New Acute Mental Status Change: No Is the patient on CPAP, BIPAP,: No Physician Orders Electrocardigram (04/06/25 17:40) Urinalysis (04/06/25 18:28) Chest Xray 1 View (04/06/25 18:28) Troponin-I Hs (04/06/25 21:28) Vital Signs Date Time Temp Pulse Resp B/P (MAP) Pulse Ox O2 Delivery O2 Flow Rate FiO2 04/06/25 19:00 94 19 103/55 (71) 100 04/06/25 18:30 87 17 92/48 (63) 99 04/06/25 17:47 97 19 95 Nasal Cannula* 2 28 04/06/25 17:47 98.8 97 19 103/46 (65) 95 98.8 04/06/25 17:32 97.6 102 18 93/56 95 97.6 04/06/25 17:32 101 Laboratory Tests Test 04/06/25 18:41 Lactic Acid Level 1.8 mmol/L (0.4-2.0) White Blood Count 4.4 10^3/uL (4.4-10.8) Departure 1 Departure Time of Disposition: 20:23 Impression: Primary Impression: CHF (congestive heart failure) Qualified Codes: I50.22 - Chronic systolic (congestive) heart failure Additional Impressions: Severe anemia NSTEMI (non-ST elevated myocardial infarction) Disposition: 09 ADMITTED INPATIENT Condition: Stable Critical Care Note Critical Care Time?: No Stability Stability form required: No Heart Score Heart Score: Heart Score Response (Comments) Value History Highly Suspicious 2 EKG Normal 0 Age >65 2 Risk Factors >3 or Hx ASHD 2 Troponin 1-2 x's Normal limit 1 Total 7 MERLENE ROBERTS Apr 06, 2025 20:26
--- NOTE | 2025-04-06 21:02 | DVHHPRES ---
History of Present Illness Resident Creating Document: KACI BALLARD RESIDENT History of Present Illness This is a 89-year-old male with past medical history of HFrEF with EF 25-35% prosthetic aortic valve, CAD with CABG, status post CRTD, severe anemia, type 2 diabetes mellitus, hyperlipidemia, presented to the ER with chief complain of generalized weakness. Patient also complained of shortness of breaths, fever since last few days, unable to elaborate further. He also complained of diarrhea since last 2 days with 3 episodes daily, described as running brown stools, no blood seen. Uses home oxygen, unsure of oxygen required at home. Previous hospitalization: Admitted in March 2025 in [facility] for active rectal bleed, requiring multiple transfusions PMHx: HFrEF with EF 25-35% prosthetic aortic valve with requirement of intermittent Dobutamine and home oxygen requirement (unsure amount of flow), CAD with CABG, status post CRTD, severe anemia, type 2 diabetes mellitus, hyperlipidemia, CKD 3B, GI bleed. Colonoscopy 1 year ago was normal PSHx: CABG, hernia repair, SCIENTIST/ENGINEER-D placement, Port-a-cath for inotropic medication Social history: Denies smoking, alcohol use, recreational drug use. Lives in house with son. Full code, next to kin is son. Home medication: Atorvastatin, Bumex, cetirizine, insulin, lorazepam, pramipexole, tamsulosin, Entresto, Jardiance, gabapentin, [place] Allergic history: No known allergy The patient was examined at bedside today. Vitals show tachycardia, soft blood pressure. Patient was admitted for further evaluation and management. Review of Systems Review of Systems ROS: Constitutional: Subjective fever. Denies weight loss and chills. HEENT: Denies changes in vision and hearing. Respiratory: Shortness of breadth, denies cough Cardiovascular: Denies chest discomfort or palpitations GI: Denies abdominal pain, nausea, vomiting and diarrhea. : Denies dysuria and urinary frequency. Musculoskeletal: Denies myalgias and joint pain Skin: Denies rash and pruritus. Neurological: Denies dizziness, headache, vision or hearing problems Allergies: Coded Allergies: NO KNOWN ALLERGIES (Verified , 11/11/24) Exam Vital Signs Vital Signs Date Time Temp Pulse Resp B/P (MAP) Pulse Ox O2 Delivery O2 Flow Rate FiO2 04/06/25 19:00 94 19 103/55 (71) 100 04/06/25 17:47 Nasal Cannula* 2 28 04/06/25 17:47 98.8 98.8 Exam General: Patient alert and oriented in person, place and time. Patient following commands. HEENT: Normocephalic, atraumatic, dry mucous membranes Respiratory/pulmonary: Mild crackles heard bilaterally Cardiovascular: Holosystolic murmur best hear in apex which radiates to axilla intensity 3/6. Abdomen: Abdomen nondistended, there is no pain to palpation in any of the abdominal quadrants, no palpable masses. Extremities: Grade 1 pitting edema on bilateral ruiz Peripheral Pulses: 3+ Radial (R). 3+ Radial (L). 3+ Dorsalis pedis (R). 3+ Dorsalis pedis(L) Skin: No rashes or pruritus, there is no sacral edema present at this time. Neurological: Intact cranial nerves with no focal neurologic deficits Labs/Xrays Labs Test 04/06/25 19:28 04/06/25 18:41 Range/Units Troponin I High Sensitivity 63 *H </=54 ng/L White Blood Count 4.4 4.4-10.8 10^3/uL Red Blood Count 2.46 L 4.5-5.90 10^6/uL Hemoglobin 7.6 L 13.5-17.5 g/dL Hematocrit 22.3 L 41.0-53.0 % Mean Corpuscular Volume 90.5 80.0-100.0 fL Mean Corpuscular Hemoglobin 31.0 28.0-32.0 pg Mean Corpuscular Hemoglobin Concent 34.2 32.0-36.0 g/dL Red Cell Distribution Width 20.3 H 11.8-14.3 % Platelet Count 110 L 140-450 10^3/uL Mean Platelet Volume 7.2 6.9-10.8 fL Neutrophils (%) (Auto) 85.1 H 37.0-80.0 % Lymphocytes (%) (Auto) 9.6 L 10.0-50.0 % Monocytes (%) (Auto) 4.7 0.0-12.0 % Eosinophils (%) (Auto) 0.2 0.0-7.0 % Basophils (%) (Auto) 0.4 0.0-2.0 % Neutrophils # (Auto) 3.8 1.6-8.6 10 ^3/uL Lymphocytes # (Auto) 0.4 0.4-5.4 10 ^3/uL Monocytes # (Auto) 0.2 0-1.3 10 ^3/uL Eosinophils # (Auto) 0 0-0.8 10 ^3/uL Basophils # (Auto) 0 0-0.2 10 ^3/uL Nucleated Red Blood Cells 0.0 % Sodium Level 129 L 136-145 mmol/L Potassium Level 4.8 3.5-5.1 mmol/L Chloride Level 97 L 98-107 mmol/L Carbon Dioxide Level 21 20-31 mmol/L Anion Gap 11 5-15 Blood Urea Nitrogen 27 H 9-23 mg/dL Creatinine 1.90 H 0.700-1.30 mg/dL Glomerular Filtration Rate Calc 33 >90 mL/min BUN/Creatinine Ratio 14.2 10.0-20.0 Serum Glucose 216 H 74-106 mg/dL Lactic Acid Level 1.8 0.4-2.0 mmol/L Calcium Level 8.0 L 8.7-10.4 mg/dL Total Bilirubin 0.7 0.2-1.0 mg/dL Aspartate Amino Transferase (AST) 22 13-40 U/L Alanine Aminotransferase (ALT) 15 7-40 U/L Alkaline Phosphatase 48 46-116 U/L Ammonia < 10 L 11-32 umol/L B-Type Natriuretic Peptide 2947.19 0-100 pg/mL Total Protein 6.6 5.7-8.2 g/dL Albumin 3.5 3.2-4.8 g/dL SEPSIS Sepsis Screen Date sepsis recognized/suspect: Apr 06, 2025 Time Sepsis recognized/suspect: 1746 Recent Procedure: No On Antibiotic Therapy: No Respiratory Rate >20: No Heart Rate >90: Yes Temp<36 C (96.8 F) or >38.3 C: No SBP <90 or MAP <65 mmHG: No New Acute Mental Status Change: No Is the patient on CPAP, BIPAP,: No Physician Orders Electrocardigram (04/06/25 17:40) Urinalysis (04/06/25 18:28) Chest Xray 1 View (04/06/25 18:28) Troponin-I Hs (04/06/25 21:28) Vital Signs Date Time Temp Pulse Resp B/P (MAP) Pulse Ox O2 Delivery O2 Flow Rate FiO2 04/06/25 19:00 94 19 103/55 (71) 100 04/06/25 18:30 87 17 92/48 (63) 99 04/06/25 17:47 97 19 95 Nasal Cannula* 2 28 04/06/25 17:47 98.8 97 19 103/46 (65) 95 98.8 04/06/25 17:32 97.6 102 18 93/56 95 97.6 04/06/25 17:32 101 Laboratory Tests Test 04/06/25 18:41 Lactic Acid Level 1.8 mmol/L (0.4-2.0) White Blood Count 4.4 10^3/uL (4.4-10.8) Assessment/Plan Assessment/Plan Acute on chronic respiratory failure Acute on chronic systolic heart failure with LVEF 25-35% Prosthetic aortic valve History of CAD with CABG Status post SCIENTIST/ENGINEER D Currently on oxygen therapy with nasal cannula2 L/min (unknown home oxygen requirement levels) BNP 2947 Restart furosemide 40 mg b.i.d. after transfusion Strict I and O Rule out Active GI bleed Severe Normocytic, normochromic Anemia, likely due to blood loss Acute infectious gastroenteritis Hemoglobin down to 6.8 Colonoscopy last year was normal. Stool occult blood ordered; GI consult deferred for now Low iron, TIBC,% saturation, elevated reticulocyte count PRBCs ordered Holding off IV fluids due to systolic heart failure exacerbation IV ceftriaxone, metronidazole NSTEMI probable type 2 Elevated troponin Monitor troponin, EKG Hyponatremia CHRISTOPHER on CKD likely due to VMN GFR-33 Strict control of blood pressure, diabetes Discussed avoiding nephrotoxins like NSAIDS, contrast Low salt diet, maintain hydration Repeat BMP Type 2 diabetes mellitus Sliding scale insulin A1c 6.6 on 03/10/2025 Monitor blood glucose Diabetes education Diabetic diet Hyperlipidemia Atorvastatin 20 mg daily History of BPH Peripheral neuropathy Continue Flomax, gabapentin DIET: NPO DVT PROPHYLAXIS: Holding off Lovenox, due to possibility of active GI bleed GI PROPHYLAXIS: Protonix CODE STATUS: Goals of care discussed with patient at bedside for more than 37 minutes. Full code DISPOSITION: Telemetry Patient's status and plan discussed with the patient. Case discussed with Dr. Robb Plan discussed with: Patient, Son, Other (Nurses) Date of Service: Apr 06, 2025 Billing Provider: JAYESH ROBB MD Common Visit Codes: [id number] INP/OBS CARE (HIGH) Secondary Visit Codes: 71263-[id number] CARE PLAN 30 MINUTES KACI BALLARD RESIDENT Apr 06, 2025 21:01 NELI GARSIA RESIDENT Apr 07, 2025 06:46
[2025-04-06 21:35] LABS: Triglycerides 77.0 mg/dL (< 150)
[2025-04-06 21:37] LABS: Cholesterol 81.0 mg/dL (< 200)
[2025-04-06 21:49] LABS: INR 1.34 (0.9-1.15); Partial Thromboplastin Time 28.4 SEC (24.5-34.5); Prothrombin Time 13.8 sec (9.3-11.8)
[2025-04-06 21:52] LABS: HDL Cholesterol 32.0 mg/dL (40-59); Magnesium 1.4 mg/dL (1.6-2.6)
[2025-04-06 21:55] LABS: Iron 28.0 ug/dL (65-175); Total Iron Binding Capacity 177.0 ug/dL (250-425)
[2025-04-06 22:41] LABS: Ferritin 2287.6 ng/mL (22-322)
[2025-04-06] MEDS ORDERED: DEXTROSE (50%) 50ML SYRG IV PRN (23:00)
[2025-04-06] MEDS ORDERED: MORPHINE SULFATE INJ 2 MG/ml SYRG IV PRN (23:00)
[2025-04-06] MEDS: FUROSEMIDE 100 MG/10ML VIAL IV SCH (23:00)
[2025-04-06] MEDS ORDERED: ENOXAPARIN SOD 40 MG/0.4 ML SYRINGE SC SCH (23:00)
[2025-04-06] MEDS ORDERED: ACETAMINOPHEN 325 MG TAB PO PRN (23:00)
[2025-04-06 23:08] LABS: Lipase 26.0 U/L (12-53)
[2025-04-06] MEDS: ENOXAPARIN SOD 30 MG/0.3 ML SYRINGE SC SCH (23:16)
[2025-04-06 23:57] LABS: Hematocrit 19.6 % (41.0-53.0)
[2025-04-06 23:58] LABS: Hemoglobin 6.8 g/dL (13.5-17.5)
[2025-04-07] VITALS (12 sets, daily range): BP systolic 81–136; BP diastolic 40–73; PULSE 66–106; RESP 14–22; TEMP 97.8–98.3; O2SAT 97–98
[2025-04-07] MEDS: ACETAMINOPHEN 325 MG TAB PO ONE (00:34)
[2025-04-07] MEDS: PANTOPRAZOLE 40 MG/10 ML VIAL INJ IV ONE (01:00)
[2025-04-07] MEDS: FUROSEMIDE 40 MG/4 ML VIAL IV SCH ×2 (06:00→17:40)
[2025-04-07] MEDS: ACCU-CHEK COMFORT CURVE STRIP VI SCH (06:03)
[2025-04-07] MEDS: InsuLIN REG 1unit/0.01ml Soln (100units/ml) SC SCH (06:03)
[2025-04-07] MEDS: ONDANSETRON HCL 4 MG/2 ML VIAL IV PRN (06:15)
[2025-04-07 07:25] LABS: Base Excess -4.4 mmol/L (-2.0-3.0)
[2025-04-07 09:08] LABS: Hematocrit 26.1 % (41.0-53.0); Hemoglobin 9.0 g/dL (13.5-17.5); Mean Corpuscular Hemoglobin 30.1 pg (28.0-32.0); Mean Corpuscular Volume 87.2 fL (80.0-100.0); Nucleated Red Blood Cells % 0.1 %
[2025-04-07 09:21] LABS: Alanine Aminotransferase 14 U/L (7-40); Albumin 3.2 g/dL (3.2-4.8); Alkaline Phosphatase 46 U/L (46-116); Anion Gap 11 (5-15); BUN/Creatinine Ratio 13.1 (10.0-20.0); Chloride 102 mmol/L (98-107); Potassium 4.1 mmol/L (3.5-5.1); Total Protein 6.3 g/dL (5.7-8.2)
[2025-04-07 09:22] LABS: Bilirubin, Total 1.5 mg/dL (0.2-1.0); Blood Urea Nitrogen 23 mg/dL (9-23); Calcium 7.7 mg/dL (8.7-10.4); Carbon Dioxide 20 mmol/L (20-31); Glucose 124 mg/dL (74-106); Sodium 133 mmol/L (136-145)
[2025-04-07] MEDS: MAGNESIUM SULFATE 1GM/100ML 100 ML IV SCH (10:39)
[2025-04-07] MEDS: GABAPENTIN 300 MG CAP PO SCH (10:40)
[2025-04-07] MEDS: PANTOPRAZOLE 40 MG/10 ML VIAL INJ IV SCH (10:40)
[2025-04-07 13:03] LABS: Urine Protein, UAD TRACE (Negative); Urine WBC Clumps PRESENT /hpf (None Seen)
[2025-04-07 13:15] LABS: Amphetamine Screen, Urine Neg (NEGATIVE); Barbiturate Scree,Urine Neg (NEGATIVE); Benzodiazephine Screen, Urine Neg (NEGATIVE); Cannabinoid Screen, Urine Neg (NEGATIVE); Cocaine Screen, Urine Neg (NEGATIVE); Opiate Scree,Urine Neg (NEGATIVE); Phencyclidine Screen, Urine Neg (NEGATIVE)
[2025-04-07] MEDS: FUROSEMIDE 40 MG/4 ML VIAL IV ONE (13:55)
[2025-04-07] MEDS: TAMSULOSIN HYDROCHLORIDE 0.4 MG CAP PO SCH (17:40)
--- NOTE | 2025-04-07 19:41 | DVHPNRES ---
Progress Note Date Seen: Apr 07, 2025 Resident Creating Document: JOAQUIN RICE RESIDENT Medical Necessity Reason Pt with a Central, PICC or Fol: No Subjective Review of Systems This is a 89-year-old male with past medical history of HFrEF with EF 25-35% prosthetic aortic valve, CAD with CABG, status post CRTD, severe anemia, type 2 diabetes mellitus, hyperlipidemia, presented to the ER with chief complain of generalized weakness. Patient also complained of shortness of breaths, fever since last few days, unable to elaborate further. He also complained of diarrhea since last 2 days with 3 episodes daily, described as running brown stools, no blood seen. Uses home oxygen, unsure of oxygen required at home. Previous hospitalization: Admitted in March 2025 in [facility] for active rectal bleed, requiring multiple transfusions PMHx: HFrEF with EF 25-35% prosthetic aortic valve with requirement of intermittent Dobutamine and home oxygen requirement (unsure amount of flow), CAD with CABG, status post CRTD, severe anemia, type 2 diabetes mellitus, hyperlipidemia, CKD 3B, GI bleed. Colonoscopy 1 year ago was normal PSHx: CABG, hernia repair, [employer]-D placement, Port-a-cath for inotropic medication Social history: Denies smoking, alcohol use, recreational drug use. Lives in house with son. Full code, next to kin is son. Home medication: Atorvastatin, Bumex, cetirizine, insulin, lorazepam, pramipexole, tamsulosin, Entresto, Jardiance, gabapentin, [place] Allergic history: No known allergy The patient was examined at bedside today. He reports having shortness of breaths, improves on sitting up. Yesterday he had a cardiology appointment. No new complaints reported. Objective vital signs Vital Sign Date Time Temp Pulse Resp B/P (MAP) Pulse Ox O2 Delivery O2 Flow Rate FiO2 04/07/25 17:40 100/50 04/07/25 17:00 97.8 106 17 97 97.8 04/07/25 15:43 Nasal Cannula* 1 24 Total Intake and Output 04/06/25 04/06/25 04/07/25 15:00 23:00 07:00 Intake Total 700 ml Output Total 0 ml Balance 700 ml medications Current Medications Medications Dose Ordered Sig/Meenu Route Start Time Stop Time Status Last Admin Dose Admin Acetaminophen 325 mg Q4HP PRN PO 04/06/25 23:00 Ondansetron HCl 4 mg Q4HP PRN IV 04/06/25 23:00 04/07/25 06:15 4 MG Diagnostic Test (Pha) 1 strip ACHS 04/07/25 07:00 04/07/25 17:39 1 STRIP Insulin Human Regular ACHS SC 04/07/25 07:00 04/07/25 17:48 3 UNITS Dextrose 50 ml UD PRN IV 04/06/25 23:00 Atorvastatin Calcium 20 mg HS PO 04/07/25 22:00 Tamsulosin HCl 0.4 mg QPM PO 04/07/25 18:00 04/07/25 17:40 0.4 MG Gabapentin 300 mg DAILY PO 04/07/25 10:00 04/07/25 10:40 300 MG Metronidazole 100 ml @ 100 mls/hr Q8HR IV 04/06/25 23:00 04/07/25 06:00 100 MLS/HR Ceftriaxone Sodium 50 ml @ 100 mls/hr DAILY@09 IV 04/06/25 23:00 04/07/25 13:56 100 MLS/HR Pantoprazole Sodium 40 mg BID IV 04/07/25 10:00 04/07/25 10:40 40 MG Furosemide 40 mg BIDD IV 04/07/25 18:00 04/07/25 17:40 40 MG Examination Exam General: Patient alert and oriented in person, place and time. Patient following commands. HEENT: Normocephalic, atraumatic, dry mucous membranes Respiratory/pulmonary: Mild crackles heard bilaterally Cardiovascular: Holosystolic murmur best hear in apex which radiates to axilla intensity 3/6. Abdomen: Abdomen nondistended, there is no pain to palpation in any of the abdominal quadrants, no palpable masses. Extremities: no edema Peripheral Pulses: 3+ Radial (R). 3+ Radial (L). 3+ Dorsalis pedis (R). 3+ Dorsalis pedis(L) Skin: No rashes or pruritus, there is no sacral edema present at this time. Neurological: Intact cranial nerves with no focal neurologic deficits laboratory and microbiology Laboratory Tests 04/07/25 08:41 Test 04/07/25 08:41 Range/Units Serum Glucose 124 H 74-106 mg/dL Labs and/or images reviewed: Labs reviewed by me, Image(s) reviewed by me Problem List/Assessment/Plan Problem List/Assessment/Plan Acute on chronic respiratory failure Acute on chronic systolic heart failure with LVEF 25-35% Prosthetic aortic valve History of CAD with CABG Status post [employer] D Currently on oxygen therapy with nasal cannula2 L/min (unknown home oxygen requirement levels) BNP 2947 Restart furosemide 40 mg b.i.d. after transfusion Strict I and O Rule out Active GI bleed Severe Normocytic, normochromic Anemia, likely due to blood loss Acute infectious gastroenteritis Hemoglobin down to 6.8 Colonoscopy last year was normal. Stool occult blood ordered; GI consult deferred for now Low iron, TIBC,% saturation, elevated reticulocyte count PRBCs ordered Holding off IV fluids due to systolic heart failure exacerbation IV ceftriaxone, metronidazole NSTEMI probable type 2 Elevated troponin Monitor troponin, EKG Hyponatremia CHRISTOPHER on CKD likely due to VMN GFR-33 Strict control of blood pressure, diabetes Discussed avoiding nephrotoxins like NSAIDS, contrast Low salt diet, maintain hydration Repeat BMP Type 2 diabetes mellitus Sliding scale insulin A1c 6.6 on 03/10/2025 Monitor blood glucose Diabetes education Diabetic diet Hyperlipidemia Atorvastatin 20 mg daily History of BPH Peripheral neuropathy Continue Flomax, gabapentin DIET: NPO DVT PROPHYLAXIS: Holding off Lovenox, due to possibility of active GI bleed GI PROPHYLAXIS: Protonix CODE STATUS: Goals of care discussed with patient at bedside for more than 37 minutes. Full code DISPOSITION: Telemetry Patient's status and plan discussed with the patient. Plan discussed with: Patient, Other (RN) CC Plasma Assessment Blood Product Administration S: [id number] Date of Service: Apr 07, 2025 Billing Provider: KINDRA MENDOZA MD Common Visit Codes: [id number] INP/OBS CARE(HIGH) JOAQUIN RICE RESIDENT Apr 07, 2025 19:41 KINDRA MENDOZA MD Apr 10, 2025 21:05
[2025-04-07] MEDS: ATORVASTATIN 20 MG TAB PO SCH (21:29)
[2025-04-08] VITALS (8 sets, daily range): BP systolic 88–123; BP diastolic 48–83; PULSE 70–104; RESP 14–18; TEMP 97.8–101.2; O2SAT 95–99
[2025-04-08] MEDS: ACETAMINOPHEN 325 MG TAB PO PRN (01:00)
[2025-04-08 01:39] LABS: COVID19 ANTIGEN SOFIA FIA NEGATIVE (NEGATIVE)
[2025-04-08] MEDS: SODIUM CHLORIDE 0.9% 250 ML IV ONE (06:30)
[2025-04-08 06:49] LABS: Hematocrit 24.4 % (41.0-53.0); Hemoglobin 8.5 g/dL (13.5-17.5); Mean Corpuscular Hemoglobin 30.4 pg (28.0-32.0); Mean Corpuscular Volume 87.0 fL (80.0-100.0); Nucleated Red Blood Cells % 0.1 %
[2025-04-08 06:53] LABS: Anion Gap 12 (5-15); Carbon Dioxide 21 mmol/L (20-31); Chloride 100 mmol/L (98-107); Potassium 3.8 mmol/L (3.5-5.1)
[2025-04-08 06:59] LABS: Glucose 74 mg/dL (74-106)
[2025-04-08 07:00] LABS: BUN/Creatinine Ratio 15.0 (10.0-20.0); Blood Urea Nitrogen 25 mg/dL (9-23); Calcium 7.9 mg/dL (8.7-10.4); Sodium 133 mmol/L (136-145)
--- NOTE | 2025-04-08 07:25 | DVHPN2 ---
Progress Note - Dictate Date Seen: Apr 08, 2025 Medical Necessity Reason Pt with a Central, PICC or Fol: No Subjective PT WITH SEVERE ANEMIA PREVIOUS ADMISSION FOR GI BLEED NOW WITH ANEMIA CONFOUNDED BY LOW RETIC COUNT MYELODYSPLASTIC SYNDROME NOW WITH ACTIVE RECTAL BLEED HX OF PROCTITIS MULTIPLE RECENT TRANSFUSIONS ALL ANTI COAGULANTS HAVE BEEN DISCONTINUED The patient with history of ischemic cardiomyopathy, depressed left ventricular ejection fraction, Bi-V AICD The patient with congestive heart failure, EF less than 20%. The patient recently had atrial fibrillation that required cardioversion as well. The patient also had recent coronary angiography, shows patent vessels. Not a candidate for any revascularization at this time. He is very compliant on his medication and also very compliant in terms of following his regimen at the congestive heart failure clinic. He has been doing extremely well and his weight has been very stable. His fluid status has been very stable as well. PERTINENT MEDICAL HISTORY: Significant for: * Ischemic cardiomyopathy. * Coronary artery disease and coronary artery bypass grafting. * Hypertension. * Hyperlipidemia. BIV AICD MR/TR REVIEW OF SYSTEMS: He denies any fever or chills, +hematochezia. No bleeding diathesis. No hematemesis or hemoptysis. No history of any liver disease. No history of lung disease. vital signs Vital Sign Date Time Temp Pulse Resp B/P (MAP) Pulse Ox O2 Delivery O2 Flow Rate FiO2 04/08/25 05:17 93/44 04/08/25 05:00 98.3 70 14 97 98.3 04/07/25 20:00 Nasal Cannula* 1 24 Total Intake and Output 04/07/25 04/07/25 04/08/25 15:00 23:00 07:00 Intake Total 1200 ml 200 ml 500 ml Output Total 200 ml 150 ml 400 ml Balance 1000 ml 50 ml 100 ml medications Current Medications Medications Dose Ordered Sig/Meenu Route Start Time Stop Time Status Last Admin Dose Admin Ondansetron HCl 4 mg Q4HP PRN IV 04/06/25 23:00 04/07/25 06:15 4 MG Diagnostic Test (Pha) 1 strip ACHS 04/07/25 07:00 04/08/25 07:00 1 STRIP Insulin Human Regular ACHS SC 04/07/25 07:00 04/07/25 21:55 2 UNITS Dextrose 50 ml UD PRN IV 04/06/25 23:00 Atorvastatin Calcium 20 mg HS PO 04/07/25 22:00 04/07/25 21:29 20 MG Tamsulosin HCl 0.4 mg QPM PO 04/07/25 18:00 04/07/25 17:40 0.4 MG Gabapentin 300 mg DAILY PO 04/07/25 10:00 04/07/25 10:40 300 MG Metronidazole 100 ml @ 100 mls/hr Q8HR IV 04/06/25 23:00 04/08/25 05:17 100 MLS/HR Ceftriaxone Sodium 50 ml @ 100 mls/hr DAILY@09 IV 04/06/25 23:00 04/07/25 13:56 100 MLS/HR Pantoprazole Sodium 40 mg BID IV 04/07/25 10:00 04/07/25 21:29 40 MG Furosemide 40 mg BIDD IV 04/07/25 18:00 04/07/25 17:40 40 MG Acetaminophen 325 mg Q4HP PRN PO 04/08/25 01:00 04/08/25 01:00 325 MG objective PHYSICAL EXAMINATION: VITAL SIGNS: Blood pressure is 104/82, pulse of 80 and irregular. HEENT: Pupils are reactive. Funduscopic exam is benign. Sclerae anicteric. Oral mucosa moist. NECK: No JVD appreciated. Carotid pulses are 2+ symmetrical. No cervical adenopathy, no supraclavicular adenopathy. No nuchal rigidity. PULMONARY: Crackles at the bases. CARDIOVASCULAR: Regular rate. PMI is diffuse, laterally displaced however. ABDOMEN: Soft, nontender. Normal bowel sounds.STOOL GUAIAC POSITIVE, BRIGHT RED BLOOD SKIN: Unremarkable. EXTREMITIES: Unremarkable, other than 1+ edema, 2+ pulses. NEUROLOGIC: The patient is intact. laboratory and microbiology Laboratory Tests 04/08/25 04:49 Test 04/08/25 04:49 Range/Units Serum Glucose 74 74-106 mg/dL Problem List PANCYTOPENIA MYELODYSPLASTIC SYNDROME HX OF PROCTITIS MULTIPLE RECENT TRANSFUSIONS ALL ANTI COAGULANTS HAVE BEEN DISCONTINUED The patient with history of ischemic cardiomyopathy, depressed left ventricular ejection fraction, Bi-V AICD The patient with congestive heart failure, EF less than 20%. The patient recently had atrial fibrillation that required cardioversion as well. The patient also had recent coronary angiography, shows patent vessels. Not a candidate for any revascularization at this time. He is very compliant on his medication and also very compliant in terms of following his regimen at the congestive heart failure clinic. He has been doing extremely well and his weight has been very stable. His fluid status has been very stable as well. * Ischemic cardiomyopathy. * Coronary artery disease and coronary artery bypass grafting. * Hypertension. * Hyperlipidemia. BIV AICD MR/TR EF <20% Assessment/Plan TRANSFUSION KEEP HCT >28% LOW IRON STORE EPOGEN BUT ELEVATED FERRITIN CHELATION CONSIDER DESFERRIOXAMINE 40/MG/KG/DAY X 5 DAYS OTHER OPTION IS ORAL CHELATOR ELEVATED BNP/ ABOVE HIS BASELINE DOBUTAMINE Plan discussed with: Patient Critical Care Time(min): 35 CC Plasma Assessment Blood Product Administration S: [id number] GILDA WOO MD Apr 08, 2025 07:25
[2025-04-08] MEDS ORDERED: PATIENTS OWN MEDICATION (EPOGEN 10,000 UNITS) SUBCUT ONE (07:30)
[2025-04-08] MEDS: DOBUTamine 1000MCG/ML 250 ML IV SCH (11:24)
[2025-04-08] MEDS: IRON SUCROSE COMPLEX 110 ML IV SCH (12:37)
--- NOTE | 2025-04-08 19:28 | DVHPNRES ---
Progress Note Date Seen: Apr 08, 2025 Resident Creating Document: JOAQUIN RICE RESIDENT Medical Necessity Reason Pt with a Central, PICC or Fol: No Subjective Review of Systems This is a 89-year-old male with past medical history of HFrEF with EF 25-35% prosthetic aortic valve, CAD with CABG, status post CRTD, severe anemia, type 2 diabetes mellitus, hyperlipidemia, presented to the ER with chief complain of generalized weakness. Patient also complained of shortness of breaths, fever since last few days, unable to elaborate further. He also complained of diarrhea since last 2 days with 3 episodes daily, described as running brown stools, no blood seen. Uses home oxygen, unsure of oxygen required at home. Previous hospitalization: Admitted in March 2025 in [facility] for active rectal bleed, requiring multiple transfusions PMHx: HFrEF with EF 25-35% prosthetic aortic valve with requirement of intermittent Dobutamine and home oxygen requirement (unsure amount of flow), CAD with CABG, status post CRTD, severe anemia, type 2 diabetes mellitus, hyperlipidemia, CKD 3B, GI bleed. Colonoscopy 1 year ago was normal PSHx: CABG, hernia repair, DIRECTOR CORPORATE-D placement, Port-a-cath for inotropic medication Social history: Denies smoking, alcohol use, recreational drug use. Lives in house with son. Full code, next to kin is son. Home medication: Atorvastatin, Bumex, cetirizine, insulin, lorazepam, pramipexole, tamsulosin, Entresto, Jardiance, gabapentin, [place] Allergic history: No known allergy The patient was examined at bedside today. Overnight events were reviewed. The patient was eating breakfast and reports no shortness of breath, chest pain or any other complaints. Objective vital signs Vital Sign Date Time Temp Pulse Resp B/P (MAP) Pulse Ox O2 Delivery O2 Flow Rate FiO2 04/08/25 17:45 136/65 04/08/25 17:00 98.9 92 15 99 98.9 04/08/25 08:00 Nasal Cannula* 1 24 Total Intake and Output 04/07/25 04/07/25 04/08/25 15:00 23:00 07:00 Intake Total 1200 ml 200 ml 500 ml Output Total 200 ml 150 ml 400 ml Balance 1000 ml 50 ml 100 ml medications Current Medications Medications Dose Ordered Sig/Meenu Route Start Time Stop Time Status Last Admin Dose Admin Ondansetron HCl 4 mg Q4HP PRN IV 04/06/25 23:00 04/07/25 06:15 4 MG Diagnostic Test (Pha) 1 strip ACHS 04/07/25 07:00 04/08/25 17:44 1 STRIP Insulin Human Regular ACHS SC 04/07/25 07:00 04/08/25 12:36 2 UNITS Dextrose 50 ml UD PRN IV 04/06/25 23:00 Atorvastatin Calcium 20 mg HS PO 04/07/25 22:00 04/07/25 21:29 20 MG Tamsulosin HCl 0.4 mg QPM PO 04/07/25 18:00 04/08/25 17:45 0.4 MG Gabapentin 300 mg DAILY PO 04/07/25 10:00 04/08/25 09:30 300 MG Metronidazole 100 ml @ 100 mls/hr Q8HR IV 04/06/25 23:00 04/08/25 13:52 100 MLS/HR Ceftriaxone Sodium 50 ml @ 100 mls/hr DAILY@09 IV 04/06/25 23:00 04/08/25 09:30 100 MLS/HR Pantoprazole Sodium 40 mg BID IV 04/07/25 10:00 04/08/25 09:30 40 MG Furosemide 40 mg BIDD IV 04/07/25 18:00 04/08/25 17:45 40 MG Acetaminophen 325 mg Q4HP PRN PO 04/08/25 01:00 04/08/25 01:00 325 MG Iron Sucrose 110 ml @ 110 mls/hr DAILY@1200 IV 04/08/25 12:00 04/12/25 12:59 04/08/25 12:37 110 MLS/HR Examination Exam General: Patient alert and oriented in person, place and time. Patient following commands. HEENT: Normocephalic, atraumatic, dry mucous membranes Respiratory/pulmonary: Mild crackles heard bilaterally Cardiovascular: Holosystolic murmur best hear in apex which radiates to axilla intensity 3/6. Abdomen: Abdomen nondistended, there is no pain to palpation in any of the abdominal quadrants, no palpable masses. Extremities: no edema Peripheral Pulses: 3+ Radial (R). 3+ Radial (L). 3+ Dorsalis pedis (R). 3+ Dorsalis pedis(L) Skin: No rashes or pruritus, there is no sacral edema present at this time. Neurological: Intact cranial nerves with no focal neurologic deficits laboratory and microbiology Laboratory Tests 04/08/25 04:49 Test 04/08/25 04:49 Range/Units Serum Glucose 74 74-106 mg/dL Microbiology Date/Time Source Procedure Growth Status 04/07/25 17:35 Nose MRSA Screen - Final Complete Labs and/or images reviewed: Labs reviewed by me, Image(s) reviewed by me Problem List/Assessment/Plan Problem List/Assessment/Plan Acute on chronic respiratory failure Acute on chronic systolic heart failure with LVEF 25-35% Prosthetic aortic valve History of CAD with CABG Status post [employer]OR [employer]PORATE D Currently on oxygen therapy with nasal cannula2 L/min (unknown home oxygen requirement levels) BNP 2947 Restart furosemide 40 mg b.i.d. after transfusion Dobutamin drip started Strict I and O Rule out Active GI bleed Severe Normocytic, normochromic Anemia, likely due to blood loss Acute infectious gastroenteritis Hemoglobin down to 6.8 Colonoscopy last year was normal. Stool occult blood ordered; GI consult deferred for now Low iron, TIBC,% saturation, elevated reticulocyte count PRBCs ordered Holding off IV fluids due to systolic heart failure exacerbation IV ceftriaxone, metronidazole NSTEMI probable type 2 Elevated troponin Monitor troponin, EKG Hyponatremia CHRISTOPHER on CKD likely due to VMN GFR-33 Strict control of blood pressure, diabetes Discussed avoiding nephrotoxins like NSAIDS, contrast Low salt diet, maintain hydration Repeat BMP Type 2 diabetes mellitus Sliding scale insulin A1c 6.6 on 03/10/2025 Monitor blood glucose Diabetes education Diabetic diet Hyperlipidemia Atorvastatin 20 mg daily History of BPH Peripheral neuropathy Continue Flomax, gabapentin DVT PROPHYLAXIS: Holding off Lovenox, due to possibility of active GI bleed GI PROPHYLAXIS: Protonix CODE STATUS: Goals of care discussed with patient at bedside for more than 37 minutes. Full code DISPOSITION: Telemetry Plan discussed with: Patient, Other (RN) CC Plasma Assessment Blood Product Administration S: [id number] Date of Service: Apr 08, 2025 Billing Provider: KINDRA MENDOZA MD Common Visit Codes: [id number] INP/OBS CARE(HIGH) JOAQUIN RICE RESIDENT Apr 08, 2025 19:28 KINDRA MENDOZA MD Apr 10, 2025 21:06
[2025-04-08] MEDS: EPOETIN ALFA-EPBX 10,000 UNIT/1ML VIAL SC ONE (20:53)
[2025-04-09] VITALS (12 sets, daily range): BP systolic 87–133; BP diastolic 45–62; PULSE 73–125; RESP 14–22; TEMP 97.8–99.9; O2SAT 94–100
[2025-04-09 06:27] LABS: Hematocrit 27.8 % (41.0-53.0); Hemoglobin 9.6 g/dL (13.5-17.5); Mean Corpuscular Hemoglobin 30.2 pg (28.0-32.0); Mean Corpuscular Volume 87.7 fL (80.0-100.0); Nucleated Red Blood Cells % 0.3 %
[2025-04-09 06:49] LABS: Alanine Aminotransferase 10 U/L (7-40); Alkaline Phosphatase 47 U/L (46-116); Anion Gap 12 (5-15); BUN/Creatinine Ratio 13.8 (10.0-20.0); Blood Urea Nitrogen 22 mg/dL (9-23); Carbon Dioxide 21 mmol/L (20-31); Chloride 100 mmol/L (98-107); Glucose 91 mg/dL (74-106); Potassium 4.0 mmol/L (3.5-5.1); Total Protein 6.7 g/dL (5.7-8.2)
[2025-04-09 06:50] LABS: Albumin 3.4 g/dL (3.2-4.8); Bilirubin, Total 0.8 mg/dL (0.2-1.0)
[2025-04-09 06:56] LABS: Calcium 8.2 mg/dL (8.7-10.4); Sodium 133 mmol/L (136-145)
--- NOTE | 2025-04-09 09:49 | DVH ---
EXAM: XY CHEST XRAY 1 VIEW Indication: SOB Technique: Single frontal view of the chest was obtained Comparison: XY CHEST XRAY 1 VIEW on DOS: 04/06/25, XY CHEST XRAY 1 VIEW on DOS: 03/09/25, XY CHEST TWO V IEWS ROUTINE on DOS: 02/02/25, XY CHEST TWO VIEWS ROUTINE on DOS: 12/22/24, XY CHEST TWO VIEWS ROUTINE o n DOS: 10/27/24 FINDINGS: Lines and Tubes: Cardiac pacemaker projects over left chest wall. Right central venous catheter tip p rojects over the superior vena cava. Lungs: Small to moderate right pleural effusion. Small left pleural effusion. Multifocal consolidat eduardo opacities. No pneumothorax. Cardiomediastinal contours: Unchanged. Bones: No acute osseous abnormality. IMPRESSION: No significant change compared to prior exam.
--- NOTE | 2025-04-09 13:33 | DVHPN2 ---
Progress Note - Dictate Date Seen: Apr 09, 2025 Medical Necessity Reason Pt with a Central, PICC or Fol: No Subjective PT WITH SEVERE ANEMIA PREVIOUS ADMISSION FOR GI BLEED NOW WITH ANEMIA CONFOUNDED BY LOW RETIC COUNT MYELODYSPLASTIC SYNDROME NOW WITH ACTIVE RECTAL BLEED HX OF PROCTITIS MULTIPLE RECENT TRANSFUSIONS ALL ANTI COAGULANTS HAVE BEEN DISCONTINUED The patient with history of ischemic cardiomyopathy, depressed left ventricular ejection fraction, Bi-V AICD The patient with congestive heart failure, EF less than 20%. The patient recently had atrial fibrillation that required cardioversion as well. The patient also had recent coronary angiography, shows patent vessels. Not a candidate for any revascularization at this time. He is very compliant on his medication and also very compliant in terms of following his regimen at the congestive heart failure clinic. He has been doing extremely well and his weight has been very stable. His fluid status has been very stable as well. PERTINENT MEDICAL HISTORY: Significant for: * Ischemic cardiomyopathy. * Coronary artery disease and coronary artery bypass grafting. * Hypertension. * Hyperlipidemia. BIV AICD MR/TR REVIEW OF SYSTEMS: He denies any fever or chills, +hematochezia. No bleeding diathesis. No hematemesis or hemoptysis. No history of any liver disease. No history of lung disease. vital signs Vital Sign Date Time Temp Pulse Resp B/P (MAP) Pulse Ox O2 Delivery O2 Flow Rate FiO2 04/09/25 12:49 97.8 75 16 87/47 (60) 97 97.8 04/09/25 08:00 Nasal Cannula* 1 24 Total Intake and Output 04/08/25 04/08/25 04/09/25 15:00 23:00 07:00 Intake Total 510 ml 476 ml 500 ml Output Total 400 ml 100 ml Balance 510 ml 76 ml 400 ml medications Current Medications Medications Dose Ordered Sig/Meenu Route Start Time Stop Time Status Last Admin Dose Admin Ondansetron HCl 4 mg Q4HP PRN IV 04/06/25 23:00 04/07/25 06:15 4 MG Diagnostic Test (Pha) 1 strip ACHS 04/07/25 07:00 04/09/25 12:03 1 STRIP Insulin Human Regular ACHS SC 04/07/25 07:00 04/08/25 21:13 3 UNITS Dextrose 50 ml UD PRN IV 04/06/25 23:00 Atorvastatin Calcium 20 mg HS PO 04/07/25 22:00 04/08/25 21:03 20 MG Gabapentin 300 mg DAILY PO 04/07/25 10:00 04/09/25 09:18 300 MG Metronidazole 100 ml @ 100 mls/hr Q8HR IV 04/06/25 23:00 04/09/25 05:28 100 MLS/HR Ceftriaxone Sodium 50 ml @ 100 mls/hr DAILY@09 IV 04/06/25 23:00 04/09/25 09:18 100 MLS/HR Pantoprazole Sodium 40 mg BID IV 04/07/25 10:00 04/09/25 09:18 40 MG Furosemide 40 mg BIDD IV 04/07/25 18:00 04/09/25 05:20 40 MG Acetaminophen 325 mg Q4HP PRN PO 04/08/25 01:00 04/08/25 01:00 325 MG Iron Sucrose 110 ml @ 110 mls/hr DAILY@1200 IV 04/08/25 12:00 04/12/25 12:59 04/09/25 12:07 110 MLS/HR Tamsulosin HCl 0.4 mg QPM PO 04/09/25 18:00 UNV objective PHYSICAL EXAMINATION: VITAL SIGNS: Blood pressure is 104/82, pulse of 80 and irregular. HEENT: Pupils are reactive. Funduscopic exam is benign. Sclerae anicteric. Oral mucosa moist. NECK: No JVD appreciated. Carotid pulses are 2+ symmetrical. No cervical adenopathy, no supraclavicular adenopathy. No nuchal rigidity. PULMONARY: Crackles at the bases. CARDIOVASCULAR: Regular rate. PMI is diffuse, laterally displaced however. ABDOMEN: Soft, nontender. Normal bowel sounds.STOOL GUAIAC POSITIVE, BRIGHT RED BLOOD SKIN: Unremarkable. EXTREMITIES: Unremarkable, other than 1+ edema, 2+ pulses. NEUROLOGIC: The patient is intact. laboratory and microbiology Laboratory Tests 04/09/25 05:35 Test 04/09/25 05:35 Range/Units Serum Glucose 91 74-106 mg/dL Problem List PANCYTOPENIA MYELODYSPLASTIC SYNDROME HX OF PROCTITIS MULTIPLE RECENT TRANSFUSIONS ALL ANTI COAGULANTS HAVE BEEN DISCONTINUED The patient with history of ischemic cardiomyopathy, depressed left ventricular ejection fraction, Bi-V AICD The patient with congestive heart failure, EF less than 20%. The patient recently had atrial fibrillation that required cardioversion as well. The patient also had recent coronary angiography, shows patent vessels. Not a candidate for any revascularization at this time. He is very compliant on his medication and also very compliant in terms of following his regimen at the congestive heart failure clinic. He has been doing extremely well and his weight has been very stable. His fluid status has been very stable as well. * Ischemic cardiomyopathy. * Coronary artery disease and coronary artery bypass grafting. * Hypertension. * Hyperlipidemia. BIV AICD MR/TR EF <20% Assessment/Plan TRANSFUSION KEEP HCT >28% LOW IRON STORE EPOGEN BUT ELEVATED FERRITIN CHELATION CONSIDER DESFERRIOXAMINE 40/MG/KG/DAY X 5 DAYS OTHER OPTION IS ORAL CHELATOR ELEVATED BNP/ ABOVE HIS BASELINE DOBUTAMINE DCed DOBUTAMINE SECONDARY TO REFLEX TACHYCARDIA AND HIGH OUTPUT STATE SECONDARY TO SEVERE ANEMIA CXR MULTIPLE CONSOLIDATION/ INFILTRATE DC FLAGYL DOXYCYCLINE Plan discussed with: Patient Critical Care Time(min): 35 CC Plasma Assessment Blood Product Administration S: [id number] GILDA WOO MD Apr 09, 2025 13:33
[2025-04-09] MEDS: TAMSULOSIN HYDROCHLORIDE 0.4 MG CAP PO ONE (13:48)
[2025-04-09] MEDS: DOXYCYCLINE 100MG/100ML 100 ML IV SCH (15:32)
[2025-04-09] MEDS ORDERED: TAMSULOSIN HYDROCHLORIDE 0.4 MG CAP PO SCH (18:00)
--- NOTE | 2025-04-09 19:04 | DVH ---
Exam: US CHEST ULTRASOUND Date: 04/09/2025 05:36 PM Clinical History: right pleural effusion loculated Comparison: US CHEST ULTRASOUND on DOS: 10/15/22 Technique: Targeted sonographic evaluation of the soft tissues of the [facility] was obtained utiliz ing grayscale and color Doppler imaging. Findings: There is no evidence for drainable collection. There is no evidence for solid or cystic mass in the site. No vascular abnormalities identified at this site. Pleural effusions bilaterally. Volume not calculated. IMPRESSION: 1. Bilateral pleural effusions.
[2025-04-09] MEDS: IPRATROPIUM BROM 0.5 MG/2.5ML INH SOL NEB SCH (19:07)
--- NOTE | 2025-04-09 20:04 | DVHPNRES ---
Progress Note Date Seen: Apr 09, 2025 Resident Creating Document: JOAQUIN RICE RESIDENT Medical Necessity Reason Pt with a Central, PICC or Fol: No Subjective Review of Systems This is a 89-year-old male with past medical history of HFrEF with EF 25-35% prosthetic aortic valve, CAD with CABG, status post CRTD, severe anemia, type 2 diabetes mellitus, hyperlipidemia, presented to the ER with chief complain of generalized weakness. Patient also complained of shortness of breaths, fever since last few days, unable to elaborate further. He also complained of diarrhea since last 2 days with 3 episodes daily, described as running brown stools, no blood seen. Uses home oxygen, unsure of oxygen required at home. Previous hospitalization: Admitted in March 2025 in [facility] for active rectal bleed, requiring multiple transfusions PMHx: HFrEF with EF 25-35% prosthetic aortic valve with requirement of intermittent Dobutamine and home oxygen requirement (unsure amount of flow), CAD with CABG, status post CRTD, severe anemia, type 2 diabetes mellitus, hyperlipidemia, CKD 3B, GI bleed. Colonoscopy 1 year ago was normal PSHx: CABG, hernia repair, [employer]-D placement, Port-a-cath for inotropic medication Social history: Denies smoking, alcohol use, recreational drug use. Lives in house with son. Full code, next to kin is son. Home medication: Atorvastatin, Bumex, cetirizine, insulin, lorazepam, pramipexole, tamsulosin, Entresto, Jardiance, gabapentin, [place] Allergic history: No known allergy The patient was examined at bedside today. He reports feeling better. No new complaints reported. Objective vital signs Vital Sign Date Time Temp Pulse Resp B/P (MAP) Pulse Ox O2 Delivery O2 Flow Rate FiO2 04/09/25 19:12 120 20 100 04/09/25 19:07 Nasal Cannula 1.0 04/09/25 19:07 24 04/09/25 17:46 108/57 04/09/25 17:00 98.4 98.4 Total Intake and Output 04/08/25 04/08/25 04/09/25 15:00 23:00 07:00 Intake Total 510 ml 476 ml 500 ml Output Total 400 ml 100 ml Balance 510 ml 76 ml 400 ml medications Current Medications Medications Dose Ordered Sig/Meenu Route Start Time Stop Time Status Last Admin Dose Admin Ondansetron HCl 4 mg Q4HP PRN IV 04/06/25 23:00 04/07/25 06:15 4 MG Diagnostic Test (Pha) 1 strip ACHS 04/07/25 07:00 04/09/25 17:06 1 STRIP Insulin Human Regular ACHS SC 04/07/25 07:00 04/08/25 21:13 3 UNITS Dextrose 50 ml UD PRN IV 04/06/25 23:00 Atorvastatin Calcium 20 mg HS PO 04/07/25 22:00 04/08/25 21:03 20 MG Gabapentin 300 mg DAILY PO 04/07/25 10:00 04/09/25 09:18 300 MG Ceftriaxone Sodium 50 ml @ 100 mls/hr DAILY@09 IV 04/06/25 23:00 04/09/25 09:18 100 MLS/HR Pantoprazole Sodium 40 mg BID IV 04/07/25 10:00 04/09/25 09:18 40 MG Furosemide 40 mg BIDD IV 04/07/25 18:00 04/09/25 17:46 40 MG Acetaminophen 325 mg Q4HP PRN PO 04/08/25 01:00 04/08/25 01:00 325 MG Iron Sucrose 110 ml @ 110 mls/hr DAILY@1200 IV 04/08/25 12:00 04/12/25 12:59 04/09/25 12:07 110 MLS/HR Tamsulosin HCl 0.4 mg QPM PO 04/09/25 18:00 UNV Ipratropium [place] 0.5 mg Q6HWA NEB 04/09/25 18:00 04/09/25 19:07 0.5 MG Doxycycline Hyclate 100 ml @ 50 mls/hr Q12H IV 04/09/25 15:00 04/09/25 15:32 50 MLS/HR Examination Exam General: Patient alert and oriented in person, place and time. Patient following commands. HEENT: Normocephalic, atraumatic, dry mucous membranes Respiratory/pulmonary: Mild crackles heard bilaterally Cardiovascular: Holosystolic murmur best hear in apex which radiates to axilla intensity 3/6. Abdomen: Abdomen nondistended, there is no pain to palpation in any of the abdominal quadrants, no palpable masses. Extremities: no edema Peripheral Pulses: 3+ Radial (R). 3+ Radial (L). 3+ Dorsalis pedis (R). 3+ Dorsalis pedis(L) Skin: No rashes or pruritus, there is no sacral edema present at this time. Neurological: Intact cranial nerves with no focal neurologic deficits laboratory and microbiology Laboratory Tests 04/09/25 05:35 Test 04/09/25 05:35 Range/Units Serum Glucose 91 74-106 mg/dL Microbiology Date/Time Source Procedure Growth Status 04/08/25 11:28 Voided Urine Urine Culture - Preliminary Resulted 04/08/25 11:07 Stool Stool Culture - Preliminary Resulted 04/08/25 11:07 Stool Shiga Toxin I & II - Final Resulted 04/08/25 09:36 Blood Blood Culture - Preliminary NO GROWTH AFTER 24 HOURS OF INCUBATION. Resulted 04/07/25 17:35 Nose MRSA Screen - Final Complete Labs and/or images reviewed: Labs reviewed by me, Image(s) reviewed by me Problem List/Assessment/Plan Problem List/Assessment/Plan Acute on chronic respiratory failure Acute on chronic systolic heart failure with LVEF< 20% Prosthetic aortic valve History of CAD with CABG Status post [employer] D (Bi-V AICD) Ischemic cardiomyopathy H/o recent Afib with cardioversion Currently on oxygen therapy with nasal cannula2 L/min (unknown home oxygen requirement levels) BNP 2947 Restart furosemide 40 mg b.i.d. after transfusion Dobutamin drip was started on 04/08/2025, discontinued today due to tachycardia and high output state due to anemia. Strict I and OThe patient with history of ischemic Recent coronary angiography, shows patent vessels. Not a candidate for any revascularization at this time. (According to DR. VO, He is very compliant on his medication and also very compliant in terms of following his regimen at the congestive heart failure clinic. He has been doing extremely well and his weight has been very stable. His fluid status has been very stable as well.) Rule out Active GI bleed Severe Normocytic, normochromic Anemia, likely due to blood loss Myelodysplastic syndrome H/o multiple recent blood transfusions Acute infectious gastroenteritis H/o proctitis Hemoglobin down to 6.8 Colonoscopy last year was normal. Stool occult blood ordered; GI consult deferred for now Low iron, TIBC,% saturation, elevated reticulocyte count PRBCs Holding off IV fluids due to systolic heart failure exacerbation IV ceftriaxone, metronidazole stool occult blood test negative. low retic count elevated ferritin: chelation, consider desferoxamine 40mg/kg/day for 5 days, other options oral chelator Pneumonia due to gram positive or negative organism CXR; multiple consolidations or infiltrate Doxycycline Discontinued flagyl. NSTEMI probable type 2 Elevated troponin Monitor troponin, EKG Hyponatremia CHRISTOPHER on CKD likely due to VMN GFR-33 Strict control of blood pressure, diabetes Discussed avoiding nephrotoxins like NSAIDS, contrast Low salt diet, maintain hydration Repeat BMP Type 2 diabetes mellitus Sliding scale insulin A1c 6.6 on 03/10/2025 Monitor blood glucose Diabetes education Diabetic diet Hyperlipidemia Atorvastatin 20 mg daily History of BPH Peripheral neuropathy Continue Flomax, gabapentin DVT PROPHYLAXIS: Holding off Lovenox, due to possibility of active GI bleed GI PROPHYLAXIS: Protonix CODE STATUS: Goals of care discussed with patient at bedside for more than 37 minutes. Full code Plan discussed with: Patient, Other (RN) My Orders My Orders Orders - JOAQUIN RICE Procedure Category Date Status Time Apply Z-Guard JOÃO 04/09/25 In Process 11:22 * Wound Consult CONS 04/09/25 Transmitted Complete Blood Count LAB 04/10/25 Verified 04:00 Basic Metabolic Panel LAB 04/10/25 Verified 04:00 CC Plasma Assessment Blood Product Administration S: 0530 Date of Service: Apr 09, 2025 Billing Provider: SMILEY BARCENAS MD Common Visit Codes: [id number] INP/OBS CARE(HIGH) JOAQUIN RICE Apr 09, 2025 20:04 SMILEY BARCENAS MD Apr 10, 2025 08:19
[2025-04-10] VITALS (17 sets, daily range): BP systolic 87–113; BP diastolic 40–72; PULSE 81–113; RESP 16–26; TEMP 97.6–102.7; O2SAT 90–100
[2025-04-10 07:05] LABS: Hematocrit 28.8 % (41.0-53.0); Hemoglobin 9.8 g/dL (13.5-17.5); Mean Corpuscular Hemoglobin 30.1 pg (28.0-32.0); Mean Corpuscular Volume 88.4 fL (80.0-100.0); Nucleated Red Blood Cells % 0.3 %
[2025-04-10 07:24] LABS: Anion Gap 15 (5-15); Chloride 100 mmol/L (98-107); Potassium 3.6 mmol/L (3.5-5.1)
[2025-04-10 07:31] LABS: BUN/Creatinine Ratio 15.5 (10.0-20.0)
[2025-04-10 07:33] LABS: Blood Urea Nitrogen 26 mg/dL (9-23); Calcium 8.3 mg/dL (8.7-10.4); Carbon Dioxide 20 mmol/L (20-31); Glucose 109 mg/dL (74-106); Sodium 135 mmol/L (136-145)
[2025-04-10] MEDS ORDERED: FUROSEMIDE 40 MG/4 ML VIAL IV ONE (10:30)
[2025-04-10] MEDS: LEVALBUTEROL HCL 1.25 MG/3 ML NEB NEB SCH (11:31)
[2025-04-10] MEDS: POTASSIUM EFFERVESENT TAB 25 MEQ PO ONE (11:42)
--- NOTE | 2025-04-10 13:52 | DVHPNRES ---
Progress Note Date Seen: Apr 10, 2025 Resident Creating Document: CROW MOREAU Medical Necessity Reason Pt with a Central, PICC or Fol: No Subjective Review of Systems This is a 89-year-old male with past medical history of HFrEF with EF 25-35% prosthetic aortic valve, CAD with CABG, status post CRTD, severe anemia, type 2 diabetes mellitus, hyperlipidemia, presented to the ER with chief complain of generalized weakness. Patient also complained of shortness of breaths, fever since last few days, unable to elaborate further. He also complained of diarrhea since last 2 days with 3 episodes daily, described as running brown stools, no blood seen. Uses home oxygen, unsure of oxygen required at home. Patient was seen and examined at bedside. Overnight events were reviewed. The patient is complaining of shortness of breath and chest pain. Vital signs show hypotension with a blood pressure of 87/40, fever of 101.4F, and tachycardia with a heart rate of 110. The patient is on 2L oxygen via nasal cannula with oxygen saturation at 97%. Breathing treatment was initiated. A sputum culture was ordered to evaluate for possible infection. Objective vital signs Vital Sign Date Time Temp Pulse Resp B/P (MAP) Pulse Ox O2 Delivery O2 Flow Rate FiO2 04/10/25 13:00 97.7 94 17 87/40 (56) 94 97.7 04/10/25 11:31 Nasal Cannula 4.0 04/10/25 11:31 36 Total Intake and Output 04/09/25 04/09/25 04/10/25 15:00 23:00 07:00 Intake Total 260 ml 550 ml 300 ml Output Total 848 ml 450 ml Balance 260 ml -298 ml -150 ml medications Current Medications Medications Dose Ordered Sig/Meenu Route Start Time Stop Time Status Last Admin Dose Admin Ondansetron HCl 4 mg Q4HP PRN IV 04/06/25 23:00 04/07/25 06:15 4 MG Diagnostic Test (Pha) 1 strip ACHS 04/07/25 07:00 04/10/25 11:51 1 STRIP Insulin Human Regular ACHS SC 04/07/25 07:00 04/10/25 11:39 2 UNITS Dextrose 50 ml UD PRN IV 04/06/25 23:00 Atorvastatin Calcium 20 mg HS PO 04/07/25 22:00 04/09/25 21:34 20 MG Gabapentin 300 mg DAILY PO 04/07/25 10:00 04/10/25 08:40 300 MG Ceftriaxone Sodium 50 ml @ 100 mls/hr DAILY@09 IV 04/06/25 23:00 04/10/25 08:40 100 MLS/HR Pantoprazole Sodium 40 mg BID IV 04/07/25 10:00 04/10/25 08:40 40 MG Acetaminophen 325 mg Q4HP PRN PO 04/08/25 01:00 04/10/25 09:00 325 MG Iron Sucrose 110 ml @ 110 mls/hr DAILY@1200 IV 04/08/25 12:00 04/12/25 12:59 04/10/25 11:42 110 MLS/HR Tamsulosin HCl 0.4 mg QPM PO 04/09/25 18:00 UNV Ipratropium [place] 0.5 mg Q6HWA [facility] 04/09/25 18:00 04/10/25 11:31 0.5 MG Doxycycline Hyclate 100 ml @ 50 mls/hr Q12H IV 04/09/25 15:00 04/10/25 03:31 50 MLS/HR Levalbuterol HCl 0.625 mg Q6HR NEB 04/10/25 12:00 04/10/25 11:31 0.625 MG Examination General: Patient alert and oriented in person, place and time. Patient following commands. HEENT: Normocephalic, atraumatic, dry mucous membranes Respiratory/pulmonary: Mild crackles heard bilaterally Cardiovascular: Holosystolic murmur best hear in apex which radiates to axilla intensity 3/6. Abdomen: Abdomen nondistended, there is no pain to palpation in any of the abdominal quadrants, no palpable masses. Stool Guaiac-positive, bright red blood. Extremities: no edema Peripheral Pulses: 3+ Radial (R). 3+ Radial (L). 3+ Dorsalis pedis (R). 3+ Dorsalis pedis(L) Skin: No rashes or pruritus, there is no sacral edema present at this time. Neurological: Intact cranial nerves with no focal neurologic deficits laboratory and microbiology Laboratory Tests 04/10/25 05:32 Test 04/10/25 05:32 Range/Units Serum Glucose 109 H 74-106 mg/dL Microbiology Date/Time Source Procedure Growth Status 04/08/25 11:28 Voided Urine Urine Culture - Preliminary Presumptive Rama albicans Resulted 04/08/25 11:07 Stool Stool Culture - Preliminary Resulted 04/08/25 11:07 Stool Shiga Toxin I & II - Final Resulted 04/08/25 09:36 Blood Blood Culture - Preliminary NO GROWTH AFTER 48 HOURS OF INCUBATION. Resulted 04/07/25 17:35 Nose MRSA Screen - Final Complete Labs and/or images reviewed: Labs reviewed by me, Image(s) reviewed by me Problem List/Assessment/Plan Problem List/Assessment/Plan Acute on chronic respiratory failure Acute on chronic systolic heart failure with LVEF< 20% Prosthetic aortic valve History of CAD with CABG Status post RODEO RIDER D (Bi-V AICD) Ischemic cardiomyopathy H/o recent Afib with cardioversion Chest US shows bilateral pleural effusions. Currently on oxygen therapy with nasal cannula2 L/min (unknown home oxygen requirement levels) BNP 2947 Restart furosemide 40 mg b.i.d. after transfusion Dobutamin drip was started on 04/08/2025, discontinued today due to tachycardia and high output state due to anemia. Strict I and OThe patient with history of ischemic EKG shows Ventricular-paced rhythm Recent coronary angiography, shows patent vessels. Not a candidate for any revascularization at this time. (According to DR. VO, He is very compliant on his medication and also very compliant in terms of following his regimen at the congestive heart failure clinic. He has been doing extremely well and his weight has been very stable. His fluid status has been very stable as well.) Dr. Vo will perform thoracentesis on 04/12/25. Rule out Active GI bleed Severe Normocytic, normochromic Anemia, likely due to blood loss Myelodysplastic syndrome H/o multiple recent blood transfusions Acute infectious gastroenteritis H/o proctitis Hemoglobin down to 6.8 Colonoscopy last year was normal. Stool occult blood ordered; GI consult deferred for now Low iron, TIBC,% saturation, elevated reticulocyte count PRBCs Holding off IV fluids due to systolic heart failure exacerbation IV ceftriaxone, metronidazole stool occult blood test negative. low retic count elevated ferritin: chelation, consider desferoxamine 40mg/kg/day for 5 days, other options oral chelator Pneumonia due to gram positive or negative organism CXR; multiple consolidations or infiltrate Doxycycline Discontinued flagyl. NSTEMI probable type 2 Elevated troponin Monitor troponin, EKG Hyponatremia CHRISTOPHER on CKD likely due to VMN GFR-33 Strict control of blood pressure, diabetes Discussed avoiding nephrotoxins like NSAIDS, contrast Low salt diet, maintain hydration Repeat BMP Type 2 diabetes mellitus Sliding scale insulin A1c 6.6 on 03/10/2025 Monitor blood glucose Diabetes education Diabetic diet Hyperlipidemia Atorvastatin 20 mg daily History of BPH Peripheral neuropathy Continue Flomax, gabapentin DVT PROPHYLAXIS: Holding off Lovenox, due to possibility of active GI bleed GI PROPHYLAXIS: Protonix Goals of care: Full code, discussed for >16 minutes on 04/10/25 Plan discussed with patient Plan discussed with Dr. Barcenas Plan discussed with: Patient, Other (RN) My Orders My Orders Orders - CROW MOREAU Procedure Category Date Status Time Electrocardigram EKG 04/10/25 Logged 11:38 Respiratory Culture SHARONDA 04/10/25 Logged W/ Gs 11:39 Complete Blood Count LAB 04/11/25 Verified 04:00 Basic Metabolic Panel LAB 04/11/25 Verified 04:00 CC Plasma Assessment Blood Product Administration S: 0530 Date of Service: Apr 10, 2025 Billing Provider: SMILEY BARCENAS MD Common Visit Codes: [id number] INP/OBS CARE(HIGH) CROW MOREAU Apr 10, 2025 13:52 SMILEY BARCENAS MD Apr 10, 2025 23:21
[2025-04-11] VITALS (18 sets, daily range): BP systolic 85–114; BP diastolic 49–80; PULSE 53–117; RESP 14–24; TEMP 97.5–100.5; O2SAT 94–100
[2025-04-11 06:30] LABS: Hematocrit 27.1 % (41.0-53.0); Hemoglobin 9.2 g/dL (13.5-17.5); Mean Corpuscular Hemoglobin 30.3 pg (28.0-32.0); Mean Corpuscular Volume 89.7 fL (80.0-100.0); Nucleated Red Blood Cells % 0.2 %
[2025-04-11 06:35] LABS: Anion Gap 13 (5-15); Chloride 103 mmol/L (98-107); Potassium 4.0 mmol/L (3.5-5.1)
[2025-04-11 06:41] LABS: BUN/Creatinine Ratio 14.2 (10.0-20.0); Blood Urea Nitrogen 23 mg/dL (9-23)
[2025-04-11 06:44] LABS: Urine Budding Yeast FEW /hpf (None Seen); Urine Protein, UAD 1+ (Negative)
[2025-04-11 06:49] LABS: Calcium 8.2 mg/dL (8.7-10.4); Carbon Dioxide 19 mmol/L (20-31); Glucose 126 mg/dL (74-106); Sodium 135 mmol/L (136-145)
--- NOTE | 2025-04-11 09:08 | DVHPNRES ---
Progress Note Date Seen: Apr 11, 2025 Resident Creating Document: JOAQUIN RICE RESIDENT Medical Necessity Reason Pt with a Central, PICC or Fol: No Subjective Review of Systems This is a 89-year-old male with past medical history of HFrEF with EF 25-35% prosthetic aortic valve, CAD with CABG, status post CRTD, severe anemia, type 2 diabetes mellitus, hyperlipidemia, presented to the ER with chief complain of generalized weakness. Patient also complained of shortness of breaths, fever since last few days, unable to elaborate further. He also complained of diarrhea since last 2 days with 3 episodes daily, described as running brown stools, no blood seen. Uses home oxygen, unsure of oxygen required at home. Patient was seen and examined at bedside. Overnight events were reviewed. The son was present at bedside, patient was having no shortness of breath in 4 L of oxygen. However, he had episodes of fever and tachycardia at night. The patient was doing better when we saw him. He was having breakfast and was conversive, was waiting for thoracentesis by Dr. Jefferson tomorrow. No new complaints reported. Objective vital signs Vital Sign Date Time Temp Pulse Resp B/P (MAP) Pulse Ox O2 Delivery O2 Flow Rate FiO2 04/11/25 06:05 89 18 99 04/11/25 05:57 Nasal Cannula 4.0 04/11/25 05:57 36 04/11/25 05:00 99.3 114/64 (81) 99.3 Total Intake and Output 04/10/25 04/10/25 04/11/25 15:00 23:00 07:00 Intake Total 160 ml 500 ml 380 ml Output Total 150 ml 375 ml Balance 160 ml 350 ml 5 ml medications Current Medications Medications Dose Ordered Sig/Meenu Route Start Time Stop Time Status Last Admin Dose Admin Ondansetron HCl 4 mg Q4HP PRN IV 04/06/25 23:00 04/07/25 06:15 4 MG Diagnostic Test (Pha) 1 strip ACHS 04/07/25 07:00 04/11/25 05:43 1 STRIP Insulin Human Regular ACHS SC 04/07/25 07:00 04/10/25 17:36 3 UNITS Dextrose 50 ml UD PRN IV 04/06/25 23:00 Atorvastatin Calcium 20 mg HS PO 04/07/25 22:00 04/10/25 22:31 20 MG Gabapentin 300 mg DAILY PO 04/07/25 10:00 04/11/25 08:52 300 MG Acetaminophen 325 mg Q4HP PRN PO 04/08/25 01:00 04/10/25 22:31 325 MG Iron Sucrose 110 ml @ 110 mls/hr DAILY@1200 IV 04/08/25 12:00 04/12/25 12:59 04/10/25 11:42 110 MLS/HR Tamsulosin HCl 0.4 mg QPM PO 04/09/25 18:00 UNV Ipratropium [place] 0.5 mg Q6HWA NEB 04/09/25 18:00 04/11/25 06:57 0.5 MG Doxycycline Hyclate 100 ml @ 50 mls/hr Q12H IV 04/09/25 15:00 04/11/25 03:08 50 MLS/HR Levalbuterol HCl 0.625 mg Q6HR NEB 04/10/25 12:00 04/11/25 06:57 0.625 MG Pantoprazole Sodium 40 mg DAILY IV 04/11/25 10:00 UNV Piperacillin Sod/ Tazobactam Sod 100 ml @ 25 mls/hr Q8HR IV 04/11/25 14:00 UNV Examination Examination General: Patient alert and oriented in person, place and time. Patient following commands. HEENT: Normocephalic, atraumatic, dry mucous membranes Respiratory/pulmonary: Mild crackles heard bilaterally Cardiovascular: Holosystolic murmur best hear in apex which radiates to axilla intensity 3/6. Abdomen: Abdomen nondistended, there is no pain to palpation in any of the abdominal quadrants, no palpable masses. Stool Guaiac-positive, bright red blood. Extremities: no edema Peripheral Pulses: 3+ Radial (R). 3+ Radial (L). 3+ Dorsalis pedis (R). 3+ Dorsalis pedis(L) Skin: No rashes or pruritus, there is no sacral edema present at this time. Neurological: Intact cranial nerves with no focal neurologic deficits laboratory and microbiology Laboratory Tests 04/11/25 05:42 Test 04/11/25 05:42 Range/Units Serum Glucose 126 H 74-106 mg/dL Microbiology Date/Time Source Procedure Growth Status 04/09/25 08:15 Stool Clostridium difficile Toxin Assay - Final Complete 04/08/25 11:28 Voided Urine Urine Culture - Preliminary Presumptive Rama albicans Resulted 04/08/25 09:36 Blood Blood Culture - Preliminary NO GROWTH AFTER 48 HOURS OF INCUBATION. Resulted 04/07/25 17:35 Nose MRSA Screen - Final Complete Labs and/or images reviewed: Labs reviewed by me, Image(s) reviewed by me Problem List/Assessment/Plan Problem List/Assessment/Plan Acute on chronic respiratory failure Acute on chronic systolic heart failure with LVEF< 20% Prosthetic aortic valve History of CAD with CABG Status post [employer]ER D (Bi-V AICD) Ischemic cardiomyopathy H/o recent Afib with cardioversion Chest US shows bilateral pleural effusions. Currently on oxygen therapy with nasal cannula2 L/min (unknown home oxygen requirement levels) BNP 2947 Restart furosemide 40 mg b.i.d. after transfusion Dobutamin drip was started on 04/08/2025, discontinued today due to tachycardia and high output state due to anemia. Lactic acid up trending 2.1> 2.4 Dobutamine drip was restarted, because the patient is congested. Strict I and OThe patient with history of ischemic EKG shows Ventricular-paced rhythm Recent coronary angiography, shows patent vessels. Not a candidate for any revascularization at this time. (According to DR. VO, He is very compliant on his medication and also very compliant in terms of following his regimen at the congestive heart failure clinic. He has been doing extremely well and his weight has been very stable. His fluid status has been very stable as well.) Dr. Vo will perform thoracentesis on 04/12/25. Rule out Active GI bleed Severe Normocytic, normochromic Anemia, likely due to blood loss Myelodysplastic syndrome H/o multiple recent blood transfusions Acute infectious gastroenteritis H/o proctitis Hemoglobin down to 6.8 Colonoscopy last year was normal. Stool occult blood ordered; GI consult deferred for now Low iron, TIBC,% saturation, elevated reticulocyte count PRBCs Holding off IV fluids due to systolic heart failure exacerbation IV ceftriaxone, metronidazole stool occult blood test negative. low retic count elevated ferritin: chelation, consider desferoxamine 40mg/kg/day for 5 days, other options oral chelator Pneumonia due to gram positive or negative organism CXR; multiple consolidations or infiltrate Doxycycline Discontinued flagyl. History of BPH Complicated UTI Continue Flomax Urine culture growing called Rama albicans, however, fluconazole held due to prolonged QT interval. Peripheral neuropathy Gabapentin NSTEMI probable type 2 Elevated troponin Monitor troponin, EKG Hyponatremia CHRISTOPHER on CKD likely due to VMN GFR-33 Strict control of blood pressure, diabetes Discussed avoiding nephrotoxins like NSAIDS, contrast Low salt diet, maintain hydration Repeat BMP Type 2 diabetes mellitus Sliding scale insulin A1c 6.6 on 03/10/2025 Monitor blood glucose Diabetes education Diabetic diet Hyperlipidemia Atorvastatin 20 mg daily DVT PROPHYLAXIS: Holding off Lovenox, due to possibility of active GI bleed GI PROPHYLAXIS: Protonix Goals of care: Full code, discussed for >16 minutes on 04/10/25 Plan discussed with patient Plan discussed with Dr. Barcenas Plan discussed with: Patient, Other (RN) My Orders My Orders Orders - JOAQUIN RICE RESIDENT Procedure Category Date Status Time Chest Xray 1 View XY 04/12/25 Logged 04:00 Complete Blood Count LAB 04/12/25 Verified 04:00 Comprehensive LAB 04/12/25 Verified Metabolic Panel 04:00 PTPTT LAB 04/12/25 Verified 04:00 Type And Screen BBK 04/12/25 Logged 04:00 CC Plasma Assessment Blood Product Administration S: 0530 Date of Service: Apr 11, 2025 Billing Provider: SMILEY BARCENAS MD Common Visit Codes: [id number] INP/OBS CARE(HIGH) JOAQUIN RICE Apr 11, 2025 09:08 SMILEY BARCENAS MD Apr 11, 2025 20:47
[2025-04-11] MEDS: PANTOPRAZOLE 40 MG/10 ML VIAL INJ IV SCH (09:43)
--- NOTE | 2025-04-11 09:47 | ECG ---
[facility] Test Date: 2025-04-10 Test Time: 12:46:34 Pat Name: GEOVANNA KAUR Department: Respiratoy Room: 0214T A Gender: M [employer] Member: HANNAH : 1935 Requested By: CROW YOU Order Number: [id number] Reading MD: Tomi Moreno Measurements Intervals [place] Rate: 90 P: 0 MN: 147 QRS: 228 QRSD: 154 T: 54 QT: 420 QTc: 514 Interpretive Statements Ventricular-paced rhythm No further analysis attempted due to paced rhythm Electronically Signed On 04-13-2025 15:05:31 PDT by Tomi Moreno Please click the below link to view image of tracing.
[2025-04-11] MEDS: PIPERACILLIN-TAZOB 3.375GM 100 ML IV ONE (10:01)
--- NOTE | 2025-04-11 14:09 | DVH ---
CHEST RADIOGRAPH Indication: SOB Technique: Single frontal view of the chest was obtained Comparison: XY CHEST XRAY 1 VIEW on DOS: 04/09/25, XY CHEST XRAY 1 VIEW on DOS: 04/06/25, XY CHEST XRA Y 1 VIEW on DOS: 03/09/25 FINDINGS: Lines and Tubes: Port-A-Cath in place right internal jugular vein unchanged from 04/09/2025. Dual-ch dennise AICD pacemaker is in place. Lungs: Unimproved bilateral airspace disease bronchovascular congestion and pleural effusions right g reater than left. Pleura: No effusion. No pneumothorax. Cardiomediastinal contours: Unremarkable Bones: No acute osseous abnormality. IMPRESSION: 1. Pacemaker and central venous catheter in place unchanged 2. Airspace disease and pleural effusions unimproved.
[2025-04-11 14:17] LABS: Lactic Acid w/Reflex 2.1 mmol/L (0.4-2.0)
[2025-04-11] MEDS: PIPERACILLIN-TAZOB 3.375GM 100 ML IV SCH (16:12)
[2025-04-11] MEDS ORDERED: VANCOMYCIN PER PHARMACY 0 MG IV SCH (16:30)
[2025-04-11] MEDS: DOBUTamine 1000MCG/ML 250 ML IV SCH (18:44)
[2025-04-11] MEDS: VANCOMYCIN 1GM/250ML KIT 250 ML IV ONE (21:03)
[2025-04-12] VITALS (16 sets, daily range): BP systolic 90–120; BP diastolic 50–59; PULSE 90–112; RESP 16–19; TEMP 97.7–99.6; O2SAT 90–99
[2025-04-12] MEDS: PIPERACILLIN-TAZOB 3.375GM 100 ML IV SCH
--- NOTE | 2025-04-12 06:27 | DVH ---
CHEST RADIOGRAPH Indication: Procedure Technique: Single frontal view of the chest was obtained COMPARISON: XY CHEST XRAY 1 VIEW on DOS: 04/11/25, XY CHEST XRAY 1 VIEW on DOS: 04/09/25, XY CHEST XR AY 1 VIEW on DOS: 04/06/25, XY CHEST XRAY 1 VIEW on DOS: 03/09/25, XY CHEST TWO VIEWS ROUTINE on DOS: 02/02/25 FINDINGS: Lines and Tubes: Right chest port in satisfactory position. Left chest wall AICD. Cardiac valve repla cement. Median sternotomy. Lungs: Multifocal airspace disease, unchanged. Pleura: Small right pleural effusion. No pneumothorax. Cardiomediastinal contours: Unremarkable. Bones: Unremarkable. IMPRESSION: No significant interval change.
[2025-04-12 07:09] LABS: INR 1.38 (0.9-1.15); Partial Thromboplastin Time 39.3 SEC (24.5-34.5); Prothrombin Time 14.2 sec (9.3-11.8)
[2025-04-12 07:11] LABS: Alanine Aminotransferase 14 U/L (7-40); Anion Gap 14 (5-15); BUN/Creatinine Ratio 21.7 (10.0-20.0); Bilirubin, Total 0.4 mg/dL (0.2-1.0); Chloride 103 mmol/L (98-107); Potassium 4.2 mmol/L (3.5-5.1); Total Protein 6.3 g/dL (5.7-8.2)
[2025-04-12 07:18] LABS: Albumin 3.1 g/dL (3.2-4.8); Alkaline Phosphatase 44 U/L (46-116); Blood Urea Nitrogen 36 mg/dL (9-23); Calcium 8.1 mg/dL (8.7-10.4); Carbon Dioxide 19 mmol/L (20-31); Glucose 139 mg/dL (74-106); Sodium 136 mmol/L (136-145)
[2025-04-12 10:51] LABS: Hematocrit 26.7 % (41.0-53.0); Hemoglobin 9.0 g/dL (13.5-17.5); Mean Corpuscular Hemoglobin 30.0 pg (28.0-32.0); Mean Corpuscular Volume 88.4 fL (80.0-100.0); Nucleated Red Blood Cells % 0.4 %
[2025-04-12] MEDS ORDERED: VANCOMYCIN 500mg/100mL 100 ML IV ONE (12:00)
--- NOTE | 2025-04-12 13:56 | DVHPN2 ---
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 The patient recently had atrial fibrillation that required cardioversion as well. The patient also had recent coronary angiography, shows patent vessels. Not a candidate for any revascularization at this time. He is very compliant on his medication and also very compliant in terms of following his regimen at the congestive heart failure clinic. He has been doing extremely well and his weight has been very stable. His fluid status has been very stable as well. PERTINENT MEDICAL HISTORY: Significant for: * Ischemic cardiomyopathy. * Coronary artery disease and coronary artery bypass grafting. * Hypertension. * Hyperlipidemia. BIV AICD MR/TR REVIEW OF SYSTEMS: He denies any fever or chills, +hematochezia. No bleeding diathesis. No hematemesis or hemoptysis. No history of any liver disease. No history of lung disease. vital signs Vital Sign Date Time Temp Pulse Resp B/P (MAP) Pulse Ox O2 Delivery O2 Flow Rate FiO2 04/12/25 11:46 94 16 99 04/12/25 11:40 Nasal Cannula 4.0 04/12/25 11:40 36 04/12/25 09:00 99.6 105/59 (74) 99.6 Total Intake and Output 04/11/25 04/11/25 04/12/25 15:00 23:00 07:00 Intake Total 210 ml 550 ml 913.9 ml Output Total 50 ml 150 ml Balance 210 ml 500 ml 763.9 ml medications Current Medications Medications Dose Ordered Sig/Meenu Route Start Time Stop Time Status Last Admin Dose Admin Ondansetron HCl 4 mg Q4HP PRN IV 04/06/25 23:00 04/07/25 06:15 4 MG Diagnostic Test (Pha) 1 strip ACHS 04/07/25 07:00 04/12/25 12:42 1 STRIP Insulin Human Regular ACHS SC 04/07/25 07:00 04/12/25 12:39 3 UNITS Dextrose 50 ml UD PRN IV 04/06/25 23:00 Atorvastatin Calcium 20 mg HS PO 04/07/25 22:00 04/11/25 20:46 20 MG Gabapentin 300 mg DAILY PO 04/07/25 10:00 04/12/25 09:48 300 MG Acetaminophen 325 mg Q4HP PRN PO 04/08/25 01:00 04/11/25 09:00 325 MG Tamsulosin HCl 0.4 mg QPM PO 04/09/25 18:00 UNV Ipratropium [place] 0.5 mg Q6HWA NEB 04/09/25 18:00 04/12/25 11:40 0.5 MG Levalbuterol HCl 0.625 mg Q6HR NEB 04/10/25 12:00 04/12/25 11:40 0.625 MG Pantoprazole Sodium 40 mg DAILY IV 04/11/25 10:00 04/12/25 09:48 40 MG Doxycycline Hyclate 100 ml @ 50 mls/hr Q12H IV 04/12/25 12:15 Cefepime HCl 0.5 gm/Sodium Chloride 50 ml @ 12.5 mls/hr Q24H IV 04/12/25 22:00 objective PHYSICAL EXAMINATION: VITAL SIGNS: Blood pressure is 104/82, pulse of 80 and irregular. HEENT: Pupils are reactive. Funduscopic exam is benign. Sclerae anicteric. Oral mucosa moist. NECK: No JVD appreciated. Carotid pulses are 2+ symmetrical. No cervical adenopathy, no supraclavicular adenopathy. No nuchal rigidity. PULMONARY: Crackles at the bases. CARDIOVASCULAR: Regular rate. PMI is diffuse, laterally displaced however. ABDOMEN: Soft, nontender. Normal bowel sounds.STOOL GUAIAC POSITIVE, BRIGHT RED BLOOD SKIN: Unremarkable. EXTREMITIES: Unremarkable, other than 1+ edema, 2+ pulses. NEUROLOGIC: The patient is intact. laboratory and microbiology Laboratory Tests 04/12/25 10:04/12/25 06:00 Test 04/12/25 06:00 Range/Units Serum Glucose 139 H 74-106 mg/dL Problem List PANCYTOPENIA MYELODYSPLASTIC SYNDROME HX OF PROCTITIS MULTIPLE RECENT TRANSFUSIONS ALL ANTI COAGULANTS HAVE BEEN DISCONTINUED The patient with history of ischemic cardiomyopathy, depressed left ventricular ejection fraction, Bi-V AICD The patient with congestive heart failure, EF less than 20%. The patient recently had atrial fibrillation that required cardioversion as well. The patient also had recent coronary angiography, shows patent vessels. Not a candidate for any revascularization at this time. He is very compliant on his medication and also very compliant in terms of following his regimen at the congestive heart failure clinic. He has been doing extremely well and his weight has been very stable. His fluid status has been very stable as well. * Ischemic cardiomyopathy. * Coronary artery disease and coronary artery bypass grafting. * Hypertension. * Hyperlipidemia. BIV AICD MR/TR EF <20% Assessment/Plan TRANSFUSION KEEP HCT >28% LOW IRON STORE EPOGEN BUT ELEVATED FERRITIN CHELATION CONSIDER DESFERRIOXAMINE 40/MG/KG/DAY X 5 DAYS OTHER OPTION IS ORAL CHELATOR ELEVATED BNP/ ABOVE HIS BASELINE DOBUTAMINE DCed DOBUTAMINE SECONDARY TO REFLEX TACHYCARDIA AND HIGH OUTPUT STATE SECONDARY TO SEVERE ANEMIA CXR MULTIPLE CONSOLIDATION/ INFILTRATE DC FLAGYL DOXYCYCLINE RESUME DOBUTAMINE THORACENTESIS ON 04/13/25 LARGE RIGHT SIDED EFFUSION Dietary Evaluation Review Recommendations by RD: Protein Supplementation Comments: 1) Initiate Glucerna tid 2) Initiate vitamin C @ 500 mg bid for 7-10 days 3) Follow-up with cardiology, pulmonology, and nephrology 4) Continue to monitor I&O, labs, and skin integrity Expected Outcomes/Goals: 1) appetite and labs to improve 2) wound to improve 3) f/u in 3-5 days Plan discussed with: Patient Critical Care Time(min): 35 CC Plasma Assessment Blood Product Administration S: [id number] GILDA WOO MD Apr 12, 2025 13:56
[2025-04-12] MEDS: DOXYCYCLINE 100MG/100ML 100 ML IV SCH (14:55)
--- NOTE | 2025-04-12 18:58 | DVHPNRES ---
Progress Note Date Seen: Apr 12, 2025 Resident Creating Document: DWAYNEJOAQUIN RESIDENT Medical Necessity Reason Pt with a Central, PICC or Fol: No Subjective Review of Systems This is a 89-year-old male with past medical history of HFrEF with EF 25-35% prosthetic aortic valve, CAD with CABG, status post CRTD, severe anemia, type 2 diabetes mellitus, hyperlipidemia, presented to the ER with chief complain of generalized weakness. Patient also complained of shortness of breaths, fever since last few days, unable to elaborate further. He also complained of diarrhea since last 2 days with 3 episodes daily, described as running brown stools, no blood seen. Uses home oxygen, unsure of oxygen required at home. Patient was seen and examined at bedside. Overnight events were reviewed. The patient reports feeling better, however, he reports having discomfort the stage I ulcer on his back and buttocks. No new complaints reported. Objective vital signs Vital Sign Date Time Temp Pulse Resp B/P (MAP) Pulse Ox O2 Delivery O2 Flow Rate FiO2 04/12/25 17:00 98.1 90 16 92/55 (67) 94 98.1 04/12/25 14:14 4.0 36 04/12/25 11:40 Nasal Cannula Total Intake and Output 04/11/25 04/11/25 04/12/25 15:00 23:00 07:00 Intake Total 210 ml 550 ml 913.9 ml Output Total 50 ml 150 ml Balance 210 ml 500 ml 763.9 ml medications Current Medications Medications Dose Ordered Sig/Meenu Route Start Time Stop Time Status Last Admin Dose Admin Ondansetron HCl 4 mg Q4HP PRN IV 04/06/25 23:00 04/07/25 06:15 4 MG Diagnostic Test (Pha) 1 strip ACHS 04/07/25 07:00 04/12/25 17:37 1 STRIP Insulin Human Regular ACHS SC 04/07/25 07:00 04/12/25 17:38 3 UNITS Dextrose 50 ml UD PRN IV 04/06/25 23:00 Atorvastatin Calcium 20 mg HS PO 04/07/25 22:00 04/11/25 20:46 20 MG Gabapentin 300 mg DAILY PO 04/07/25 10:00 04/12/25 09:48 300 MG Acetaminophen 325 mg Q4HP PRN PO 04/08/25 01:00 04/11/25 09:00 325 MG Tamsulosin HCl 0.4 mg QPM PO 04/09/25 18:00 UNV Ipratropium [place] 0.5 mg Q6HWA NEB 04/09/25 18:00 04/12/25 11:40 0.5 MG Levalbuterol HCl 0.625 mg Q6HR NEB 04/10/25 12:00 04/12/25 11:40 0.625 MG Pantoprazole Sodium 40 mg DAILY IV 04/11/25 10:00 04/12/25 09:48 40 MG Doxycycline Hyclate 100 ml @ 50 mls/hr Q12H IV 04/12/25 12:15 04/12/25 14:55 50 MLS/HR Cefepime HCl 0.5 gm/Sodium Chloride 50 ml @ 12.5 mls/hr Q24H IV 04/12/25 22:00 Examination Examination General: Patient alert and oriented in person, place and time. Patient following commands. HEENT: Normocephalic, atraumatic, dry mucous membranes Respiratory/pulmonary: Mild crackles heard bilaterally Cardiovascular: Holosystolic murmur best hear in apex which radiates to axilla intensity 3/6. Abdomen: Abdomen nondistended, there is no pain to palpation in any of the abdominal quadrants, no palpable masses. Extremities: no edema Peripheral Pulses: 3+ Radial (R). 3+ Radial (L). 3+ Dorsalis pedis (R). 3+ Dorsalis pedis(L) Skin: Peeling of skin over lower back and buttock area, stage I ulcer Neurological: Intact cranial nerves with no focal neurologic deficits laboratory and microbiology Laboratory Tests 04/12/25 10:23 04/12/25 06:00 Test 04/12/25 06:00 Range/Units Serum Glucose 139 H 74-106 mg/dL Microbiology Date/Time Source Procedure Growth Status 04/10/25 10:05 Blood Blood Culture - Preliminary NO GROWTH AFTER 48 HOURS OF INCUBATION. 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 Currently on oxygen therapy with nasal cannula2 L/min (unknown home oxygen requirement levels) BNP 2947 Restart furosemide 40 mg b.i.d. after transfusion Dobutamin drip was started on 04/08/2025, discontinued today due to tachycardia and high output state due to anemia. Lactic acid up trending 2.1> 2.4 Dobutamine drip was restarted, because the patient is congested. Strict I and OThe patient with history of ischemic EKG shows Ventricular-paced rhythm Breathing treatment levalbuterol and ipratropium given. Dobutamine discontinued again on 04/12/2025 due to tachycardia Recent coronary angiography, shows patent vessels. Not a candidate for any revascularization at this time. (According to DR. VO, He is very compliant on his medication and also very compliant in terms of following his regimen at the congestive heart failure clinic. He has been doing extremely well and his weight has been very stable. His fluid status has been very stable as well.) Dr. Vo will perform thoracentesis on 04/13/2025 Rule out Active GI bleed Severe Normocytic, normochromic Anemia, likely due to blood loss Myelodysplastic syndrome H/o multiple recent blood transfusions Acute infectious gastroenteritis H/o proctitis Hemoglobin down to 6.8 Colonoscopy last year was normal. Stool occult blood ordered; GI consult deferred for now Low iron, TIBC,% saturation, elevated reticulocyte count PRBCs Holding off IV fluids due to systolic heart failure exacerbation IV ceftriaxone, metronidazole stool occult blood test negative. low retic count elevated ferritin: chelation, consider desferoxamine 40mg/kg/day for 5 days, other options oral chelator Pneumonia due to gram positive or negative organism CXR; multiple consolidations or infiltrate Doxycycline Discontinued flagyl. History of BPH Complicated UTI Continue Flomax Urine culture growing called Rama albicans, however, fluconazole held due to prolonged QT interval. 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 Barcenas Plan discussed with: Patient, Other (RN) My Orders My Orders Orders - JOAQUIN RICE RESIDENT Procedure Category Date Status Time Doxycycline PHA 04/12/25 In Process 100mg/100ml 12:15 Cefepime (Maxipime) PHA 04/12/25 In Process 22:00 Dietary Evaluation Review Recommendations by RD: Protein Supplementation Comments: 1) Initiate Glucerna tid 2) Initiate vitamin C @ 500 mg bid for 7-10 days 3) Follow-up with cardiology, pulmonology, and nephrology 4) Continue to monitor I&O, labs, and skin integrity Expected Outcomes/Goals: 1) appetite and labs to improve 2) wound to improve 3) f/u in 3-5 days CC Plasma Assessment Blood Product Administration S: [id number] Date of Service: Apr 12, 2025 Billing Provider: SMILEY BARCENAS MD Common Visit Codes: 97096-[id number] INP/OBS CARE(HIGH) (ttttttttttttttttttttttttttttttttttttttttttttttttttttttttttttttttttttttttttttt) JOAQUIN RICE Apr 12, 2025 18:58 SMILEY BARCENAS MD Apr 13, 2025 09:52
[2025-04-12] MEDS: CEFEPIME 0.5 GM in SODIUM CHL 0.9% 50 ML IV SCH (22:20)
[2025-04-13] VITALS (20 sets, daily range): BP systolic 100–112; BP diastolic 51–78; PULSE 92–107; RESP 16–22; TEMP 36.6; O2SAT 91–100
[2025-04-13] MEDS ORDERED: IPRATROPIUM BROM 0.5 MG/2.5ML INH SOL NEB SCH (04:00)
[2025-04-13] MEDS ORDERED: LEVALBUTEROL HCL 1.25 MG/3 ML NEB NEB SCH (04:00)
[2025-04-13] MEDS: IPRATROPIUM BROM 0.5 MG/2.5ML INH SOL NEB SCH (05:40)
[2025-04-13] MEDS: LEVALBUTEROL HCL 1.25 MG/3 ML NEB NEB SCH (05:40)
[2025-04-13 05:49] LABS: Hematocrit 27.5 % (41.0-53.0); Hemoglobin 9.5 g/dL (13.5-17.5); Mean Corpuscular Hemoglobin 30.3 pg (28.0-32.0); Mean Corpuscular Volume 88.2 fL (80.0-100.0); Nucleated Red Blood Cells % 0.0 %
[2025-04-13 06:03] LABS: Anion Gap 12 (5-15); Carbon Dioxide 22 mmol/L (20-31); Chloride 101 mmol/L (98-107); Potassium 3.8 mmol/L (3.5-5.1)
[2025-04-13 06:08] LABS: Calcium 8.3 mg/dL (8.7-10.4); Glucose 85 mg/dL (74-106); Sodium 135 mmol/L (136-145)
[2025-04-13 06:19] LABS: BUN/Creatinine Ratio 19.7 (10.0-20.0); Blood Urea Nitrogen 36 mg/dL (9-23)
[2025-04-13] MEDS: CEFEPIME 1GM/50ML 50 ML IV ONE (10:51)
--- NOTE | 2025-04-13 13:00 | DVH ---
PROCEDURE: ULTRASOUND GUIDED THORACENTESIS USING TEMPORARY CATHETER HISTORY: RIGHT SIDED PLEURAL EFFUSION/ CHF DOCUMENTATION: Informed consent was obtained and a procedural time out was performed. FINDINGS: The risks and benefits of the procedure including bleeding, infection and pneumothorax were explained to the patient and written informed consent obtained. Optimal site for puncture along the right posterior chest wall was determined using real-time ultraso und and the region sterilized. Local anesthesia was instilled. Small to moderate volume complex / se ptated pleural fluid was identified . A 5 iranian catheter was then advanced into the pleural space and 0.6 liters of straw colored fluid w as removed. The patient tolerated the procedure well. IMPRESSION: 1. Ultrasound guided right thoracentesis.
--- NOTE | 2025-04-13 13:00 | DVH ---
INDICATION: POST THORA TECHNIQUE: Frontal view of the chest. COMPARISON: XY CHEST XRAY 1 VIEW on DOS: 04/12/25, XY CHEST XRAY 1 VIEW on DOS: 04/11/25, US CHEST UL TRASOUND on DOS: 04/09/25, XY CHEST XRAY 1 VIEW on DOS: 04/09/25, XY CHEST XRAY 1 VIEW on DOS: 5 FINDINGS: Right-sided loculated pleural effusion has slightly improved status post thoracentesis. There is no p neumothorax. Pulmonary vascular congestion / intertitial edema has slightly improved. There is minima l left lower left effusion. There is a left-sided AICD in place. Right IJ chest port remains in satis factory position. Transcatheter aortic valve is again identified. The bones are deminaralized. IMPRESSION: 1. Slightly improved right-sided loculated pleural effusion. No pneumothorax .
--- NOTE | 2025-04-13 13:34 | DVH ---
LEFT Upper Extremity Venous Duplex Clinical History: SWELLING Comparison: LWRI on DOS: 06/20/22 Technique: Duplex Doppler evaluation of the venous system of the LEFT lower neck and upper extremity including color Doppler and spectral/pulsed waveform analysis was performed. Findings: The internal jugular vein demonstrates appropriate compressibility and waveform variability. The subclavian vein is patent on color Doppler evaluation without intraluminal thrombus and demonstra zully waveform variability. The visualized portion of the brachiocephalic vein is patent on color Doppler evaluation without intr aluminal thrombus and demonstrates waveform variability. The axillary vein demonstrates appropriate compressibility and waveform variability. Axillary vein is suboptimally evaluated secondary to patient immobility. The brachial veins demonstrate appropriate compressibility and patency on Doppler evaluation. The basilic vein demonstrates intraluminal thrombus and noncompressibility. The cephalic vein is not visualized. Impression: Positive thrombus is present in the basilic vein.
--- NOTE | 2025-04-13 13:43 | DVHPN2 ---
Progress Note - Dictate Date Seen: Apr 13, 2025 Medical Necessity Reason Pt with a Central, PICC or Fol: No Subjective PT WITH SEVERE ANEMIA PREVIOUS ADMISSION FOR GI BLEED NOW WITH ANEMIA CONFOUNDED BY LOW RETIC COUNT MYELODYSPLASTIC SYNDROME NOW WITH ACTIVE RECTAL BLEED HX OF PROCTITIS MULTIPLE RECENT TRANSFUSIONS ALL ANTI COAGULANTS HAVE BEEN DISCONTINUED The patient with history of ischemic cardiomyopathy, depressed left ventricular ejection fraction, Bi-V AICD The patient with congestive heart failure, EF less than 20%. The patient recently had atrial fibrillation that required cardioversion as well. The patient also had recent coronary angiography, shows patent vessels. Not a candidate for any revascularization at this time. He is very compliant on his medication and also very compliant in terms of following his regimen at the congestive heart failure clinic. He has been doing extremely well and his weight has been very stable. His fluid status has been very stable as well. PERTINENT MEDICAL HISTORY: Significant for: * Ischemic cardiomyopathy. * Coronary artery disease and coronary artery bypass grafting. * Hypertension. * Hyperlipidemia. BIV AICD MR/TR REVIEW OF SYSTEMS: He denies any fever or chills, +hematochezia. No bleeding diathesis. No hematemesis or hemoptysis. No history of any liver disease. No history of lung disease. vital signs Vital Sign Date Time Temp Pulse Resp B/P (MAP) Pulse Ox O2 Delivery O2 Flow Rate FiO2 04/13/25 10:00 94 Nasal Cannula 3.0 04/13/25 10:00 32 04/13/25 09:32 106 16 04/13/25 09:00 97.9 112/78 (89) 97.9 Total Intake and Output 04/12/25 04/12/25 04/13/25 15:00 23:00 07:00 Intake Total 200 ml 700 ml Output Total 150 ml 100 ml Balance 50 ml 600 ml medications Current Medications Medications Dose Ordered Sig/Meenu Route Start Time Stop Time Status Last Admin Dose Admin Ondansetron HCl 4 mg Q4HP PRN IV 04/06/25 23:00 04/07/25 06:15 4 MG Diagnostic Test (Pha) 1 strip ACHS 04/07/25 07:00 04/13/25 11:30 1 STRIP Insulin Human Regular ACHS SC 04/07/25 07:00 04/12/25 22:10 3 UNITS Dextrose 50 ml UD PRN IV 04/06/25 23:00 Atorvastatin Calcium 20 mg HS PO 04/07/25 22:00 04/12/25 22:09 20 MG Gabapentin 300 mg DAILY PO 04/07/25 10:00 04/13/25 09:42 300 MG Acetaminophen 325 mg Q4HP PRN PO 04/08/25 01:00 04/11/25 09:00 325 MG Tamsulosin HCl 0.4 mg QPM PO 04/09/25 18:00 UNV Doxycycline Hyclate 100 ml @ 50 mls/hr Q12H IV 04/12/25 12:15 04/13/25 00:10 50 MLS/HR Cefepime HCl 0.5 gm/Sodium Chloride 50 ml @ 12.5 mls/hr Q24H IV 04/12/25 22:00 04/12/25 22:20 12.5 MLS/HR Ipratropium [place] 0.5 mg Q4HR NEB 04/13/25 06:00 04/13/25 09:22 0.5 MG Levalbuterol HCl 0.625 mg Q4HR NEB 04/13/25 06:00 04/13/25 09:22 0.625 MG Pantoprazole Sodium 40 mg DAILY@0600 PO 04/14/25 06:00 Guaifenesin/ Dextromethorphan 10 ml Q4HP PRN PO 04/13/25 13:45 UNV objective PHYSICAL EXAMINATION: VITAL SIGNS: Blood pressure is 104/82, pulse of 80 and irregular. HEENT: Pupils are reactive. Funduscopic exam is benign. Sclerae anicteric. Oral mucosa moist. NECK: No JVD appreciated. Carotid pulses are 2+ symmetrical. No cervical adenopathy, no supraclavicular adenopathy. No nuchal rigidity. PULMONARY: Crackles at the bases. CARDIOVASCULAR: Regular rate. PMI is diffuse, laterally displaced however. ABDOMEN: Soft, nontender. Normal bowel sounds.STOOL GUAIAC POSITIVE, BRIGHT RED BLOOD SKIN: Unremarkable. EXTREMITIES: Unremarkable, other than 1+ edema, 2+ pulses. NEUROLOGIC: The patient is intact. laboratory and microbiology Laboratory Tests 04/13/25 05:16 Test 04/13/25 05:16 Range/Units Serum Glucose 85 74-106 mg/dL Problem List PANCYTOPENIA MYELODYSPLASTIC SYNDROME HX OF PROCTITIS MULTIPLE RECENT TRANSFUSIONS ALL ANTI COAGULANTS HAVE BEEN DISCONTINUED The patient with history of ischemic cardiomyopathy, depressed left ventricular ejection fraction, Bi-V AICD The patient with congestive heart failure, EF less than 20%. The patient recently had atrial fibrillation that required cardioversion as well. The patient also had recent coronary angiography, shows patent vessels. Not a candidate for any revascularization at this time. He is very compliant on his medication and also very compliant in terms of following his regimen at the congestive heart failure clinic. He has been doing extremely well and his weight has been very stable. His fluid status has been very stable as well. * Ischemic cardiomyopathy. * Coronary artery disease and coronary artery bypass grafting. * Hypertension. * Hyperlipidemia. BIV AICD MR/TR EF <20% Assessment/Plan TRANSFUSION KEEP HCT >28% LOW IRON STORE EPOGEN BUT ELEVATED FERRITIN CHELATION CONSIDER DESFERRIOXAMINE 40/MG/KG/DAY X 5 DAYS OTHER OPTION IS ORAL CHELATOR ELEVATED BNP/ ABOVE HIS BASELINE DOBUTAMINE DCed DOBUTAMINE SECONDARY TO REFLEX TACHYCARDIA AND HIGH OUTPUT STATE SECONDARY TO SEVERE ANEMIA CXR MULTIPLE CONSOLIDATION/ INFILTRATE DC FLAGYL DOXYCYCLINE RESUME DOBUTAMINE THORACENTESIS ON 04/13/25 LARGE RIGHT SIDED EFFUSION S/P THORACENTESIS 600 CC OF SEROUS FLUID REMOVED Dietary Evaluation Review Recommendations by RD: Protein Supplementation Comments: 1) Initiate Glucerna tid 2) Initiate vitamin C @ 500 mg bid for 7-10 days 3) Follow-up with cardiology, pulmonology, and nephrology 4) Continue to monitor I&O, labs, and skin integrity Expected Outcomes/Goals: 1) appetite and labs to improve 2) wound to improve 3) f/u in 3-5 days Plan discussed with: Patient Critical Care Time(min): 35 CC Plasma Assessment Blood Product Administration S: [id number] GILDA WOO MD Apr 13, 2025 13:43
[2025-04-13] MEDS ORDERED: guaiFENesin-DM 100/10mg/5ml SYR PO PRN (13:45)
[2025-04-13 14:10] LABS: Alanine Aminotransferase 13.0 U/L (7-40); Albumin 3.2 g/dL (3.2-4.8); Bilirubin, Direct 0.2 mg/dL (<0.3); Bilirubin, Total 0.3 mg/dL (0.2-1.0); Total Protein 6.7 g/dL (5.7-8.2)
[2025-04-13 14:11] LABS: Alkaline Phosphatase 40.0 U/L (46-116)
--- NOTE | 2025-04-13 14:51 | DVH ---
XY CHEST PORTABLE, HISTORY: sob COMPARISON: XY CHEST PORTABLE on DOS: 04/13/25, XY CHEST XRAY 1 VIEW on DOS: 04/12/25, XY CHEST XRAY 1 VIEW on DOS: 04/11/25 XY CHEST PORTABLE on DOS: 04/13/25, XY CHEST XRAY 1 VIEW on DOS: 04/12/25, XY CHEST XRAY 1 VIEW on DO S: 04/11/25 TECHNICAL DATA: 1 view of the chest was obtained. FINDINGS: Lines and tubes: A cardiac pacer is noted. A port is seen. Cardiomediastinal silhouette: Enlarged Pulmonary vasculature: Prominent Lung expansion: normal Lung airspace: Patchy perihilar airspace opacity. Lung interstitium: Prominent. Pleura: Small bilateral pleural effusion. Pneumothorax: no Bones: Unremarkable Other: no IMPRESSION: Similar lung aeration bilaterally with small bilateral pleural effusions.
[2025-04-13] MEDS: guaiFENesin-DM 100/10mg/5ml SYR PO ONE (17:11)
[2025-04-13] MEDS: PANTOPRAZOLE 40 MG TAB PO ONE (17:11)
[2025-04-13] MEDS: FUROSEMIDE 40 MG/4 ML VIAL IV ONE (17:12)
--- NOTE | 2025-04-13 18:54 | DVHPNRES ---
Progress Note Date Seen: Apr 13, 2025 Resident Creating Document: JOAQUIN RICE Medical Necessity Reason Pt with a Central, PICC or Fol: No Subjective Review of Systems This is a 89-year-old male with past medical history of HFrEF with EF 25-35% prosthetic aortic valve, CAD with CABG, status post CRTD, severe anemia, type 2 diabetes mellitus, hyperlipidemia, presented to the ER with chief complain of generalized weakness. Patient also complained of shortness of breaths, fever since last few days, unable to elaborate further. He also complained of diarrhea since last 2 days with 3 episodes daily, described as running brown stools, no blood seen. Uses home oxygen, unsure of oxygen required at home. Patient was seen and examined at bedside. Overnight events were reviewed. The patient was seen status post thoracentesis, he endorsed left arm swelling. He denies chest pain, shortness of breath, abdominal pain, fever or any other complaints. Objective vital signs Vital Sign Date Time Temp Pulse Resp B/P (MAP) Pulse Ox O2 Delivery O2 Flow Rate FiO2 04/13/25 18:41 95 18 95 04/13/25 18:41 Nasal Cannula 3.0 04/13/25 18:41 32 04/13/25 17:12 104/66 04/13/25 17:09 97.9 97.9 Total Intake and Output 04/12/25 04/12/25 04/13/25 15:00 23:00 07:00 Intake Total 200 ml 700 ml Output Total 150 ml 100 ml Balance 50 ml 600 ml medications Current Medications Medications Dose Ordered Sig/Meenu Route Start Time Stop Time Status Last Admin Dose Admin Ondansetron HCl 4 mg Q4HP PRN IV 04/06/25 23:00 04/07/25 06:15 4 MG Diagnostic Test (Pha) 1 strip ACHS 04/07/25 07:00 04/13/25 11:30 1 STRIP Insulin Human Regular ACHS SC 04/07/25 07:00 04/13/25 18:04 3 UNITS Dextrose 50 ml UD PRN IV 04/06/25 23:00 Atorvastatin Calcium 20 mg HS PO 04/07/25 22:00 04/12/25 22:09 20 MG Gabapentin 300 mg DAILY PO 04/07/25 10:00 04/13/25 09:42 300 MG Acetaminophen 325 mg Q4HP PRN PO 04/08/25 01:00 04/11/25 09:00 325 MG Tamsulosin HCl 0.4 mg QPM PO 04/09/25 18:00 UNV Doxycycline Hyclate 100 ml @ 50 mls/hr Q12H IV 04/12/25 12:15 04/13/25 15:08 50 MLS/HR Ipratropium [place] 0.5 mg Q4HR NEB 04/13/25 06:00 04/13/25 18:41 0.5 MG Levalbuterol HCl 0.625 mg Q4HR NEB 04/13/25 06:00 04/13/25 18:41 0.625 MG Pantoprazole Sodium 40 mg DAILY@0600 PO 04/14/25 06:00 Guaifenesin/ Dextromethorphan 10 ml Q4HP PRN PO 04/13/25 13:45 Cefepime HCl 50 ml @ 12.5 mls/hr HS IV 04/13/25 22:00 Examination Examination General: Patient alert and oriented in person, place and time. Patient following commands. HEENT: Normocephalic, atraumatic, dry mucous membranes Respiratory/pulmonary: Mild crackles heard bilaterally Cardiovascular: Holosystolic murmur best hear in apex which radiates to axilla intensity 3/6. Abdomen: Abdomen nondistended, there is no pain to palpation in any of the abdominal quadrants, no palpable masses. Extremities: Left arm edema and erythema Peripheral Pulses: 3+ Radial (R). 3+ Radial (L). 3+ Dorsalis pedis (R). 3+ Dorsalis pedis(L) Skin: Peeling of skin over lower back and buttock area, stage I ulcer Neurological: Intact cranial nerves with no focal neurologic deficits laboratory and microbiology Laboratory Tests 04/13/25 05:16 Test 04/13/25 05:16 Range/Units Serum Glucose 85 74-106 mg/dL Microbiology Date/Time Source Procedure Growth Status 04/10/25 10:05 Blood Blood Culture - Preliminary NO GROWTH AFTER 72 HOURS OF INCUBATION. Resulted 04/09/25 08:15 Stool Clostridium difficile Toxin Assay - Final Complete 04/08/25 11:28 Voided Urine Urine Culture - Final Presumptive Rama albicans Complete 04/07/25 17:35 Nose MRSA Screen - Final Complete Labs and/or images reviewed: Labs reviewed by me, Image(s) reviewed by me Problem List/Assessment/Plan Problem List/Assessment/Plan Acute on chronic respiratory failure Acute on chronic systolic heart failure with LVEF< 20% Prosthetic aortic valve History of CAD with CABG Status post STACK YIELD ENGINEER D (Bi-V AICD) Ischemic cardiomyopathy H/o recent Afib with cardioversion Chest US shows bilateral pleural effusions. Ultrasound guided thoracentesis performed on 04/13/2025: Large right-sided effusion, 600 cc of serous fluid removed Currently on oxygen therapy with nasal cannula2 L/min (unknown home oxygen requirement levels) BNP 2947 Restart furosemide 40 mg b.i.d. after transfusion Dobutamin drip was started on 04/08/2025, discontinued today due to tachycardia and high output state due to anemia. Lactic acid up trending 2.1> 2.4 Dobutamine drip was restarted, because the patient is congested. Strict I and OThe patient with history of ischemic EKG shows Ventricular-paced rhythm Breathing treatment levalbuterol and ipratropium given. Dobutamine discontinued again on 04/12/2025 due to tachycardia Patient is on cefepime and doxycycline Recent coronary angiography, shows patent vessels. Not a candidate for any revascularization at this time. (According to DR. VO, He is very compliant on his medication and also very compliant in terms of following his regimen at the congestive heart failure clinic. He has been doing extremely well and his weight has been very stable. His fluid status has been very stable as well.) Superficial vein thrombosis Status post thoracentesis left upper extremity venous duplex on 04/13/2025 revealed basilic vein thrombus 1 dose of aspirin was given, later discontinued warm compression Rule out Active GI bleed Severe Normocytic, normochromic Anemia, likely due to blood loss Myelodysplastic syndrome H/o multiple recent blood transfusions Acute infectious gastroenteritis H/o proctitis Hemoglobin down to 6.8 Colonoscopy last year was normal. Stool occult blood ordered; GI consult deferred for now Low iron, TIBC,% saturation, elevated reticulocyte count PRBCs Holding off IV fluids due to systolic heart failure exacerbation IV ceftriaxone, metronidazole stool occult blood test negative. low retic count elevated ferritin: chelation, consider desferoxamine 40mg/kg/day for 5 days, other options oral chelator Pneumonia due to gram positive or negative organism CXR; multiple consolidations or infiltrate Doxycycline Discontinued flagyl. History of BPH Complicated UTI Continue Flomax Urine culture growing called Rama albicans, however, fluconazole held due to prolonged QT interval. Peripheral neuropathy Gabapentin NSTEMI probable type 2 Elevated troponin Monitor troponin, EKG Hyponatremia CHRISTOPHER on CKD likely due to VMN GFR-33 Strict control of blood pressure, diabetes Discussed avoiding nephrotoxins like NSAIDS, contrast Low salt diet, maintain hydration Repeat BMP Type 2 diabetes mellitus Sliding scale insulin A1c 6.6 on 03/10/2025 Monitor blood glucose Diabetes education Diabetic diet Hyperlipidemia Atorvastatin 20 mg daily DVT PROPHYLAXIS: Holding off Lovenox, due to possibility of active GI bleed GI PROPHYLAXIS: Protonix Plan discussed with: Patient, Other (RN) My Orders My Orders Orders - JOAQUIN RICE Procedure Category Date Status Time Chest Portable XY 04/13/25 Resulted 09:15 Pantoprazole Tablet PHA 04/14/25 In Process (Protonix Tablet) 06:00 * Wound Consult CONS 04/13/25 Transmitted 12:16 * Dietary Consult CONS 04/13/25 Transmitted 12:16 Cefepime 1gm/50ml PHA 04/13/25 In Process (Maxipime 1gm/50ml) 22:00 Dietary Evaluation Review Recommendations by RD: Protein Supplementation Comments: 1) Initiate Glucerna tid 2) Initiate vitamin C @ 500 mg bid for 7-10 days 3) Follow-up with cardiology, pulmonology, and nephrology 4) Continue to monitor I&O, labs, and skin integrity Expected Outcomes/Goals: 1) appetite and labs to improve 2) wound to improve 3) f/u in 3-5 days CC Plasma Assessment Blood Product Administration S: 0530 Date of Service: Apr 13, 2025 Billing Provider: SMILEY BARCENAS MD Common Visit Codes: [id number] INP/OBS CARE(HIGH) JOAQUIN RICE Apr 13, 2025 18:54 SMILEY BARCENAS MD Apr 15, 2025 22:33
[2025-04-13] MEDS: CEFEPIME 1GM/50ML 50 ML IV SCH (21:39)
[2025-04-14] VITALS (20 sets, daily range): BP systolic 95–120; BP diastolic 51–72; PULSE 91–110; RESP 14–22; TEMP 97.5–98.6; O2SAT 90–100
[2025-04-14 06:26] LABS: Hematocrit 27.9 % (41.0-53.0); Hemoglobin 9.4 g/dL (13.5-17.5); Mean Corpuscular Hemoglobin 30.0 pg (28.0-32.0); Mean Corpuscular Volume 88.8 fL (80.0-100.0); Nucleated Red Blood Cells % 0.3 %
[2025-04-14 06:28] LABS: Anion Gap 14 (5-15); Chloride 103 mmol/L (98-107); Potassium 4.1 mmol/L (3.5-5.1)
[2025-04-14] MEDS: PANTOPRAZOLE 40 MG TAB PO SCH (06:31)
[2025-04-14 06:32] LABS: Calcium 8.3 mg/dL (8.7-10.4); Carbon Dioxide 18 mmol/L (20-31); Sodium 135 mmol/L (136-145)
[2025-04-14 06:34] LABS: BUN/Creatinine Ratio 22.0 (10.0-20.0)
[2025-04-14 06:37] LABS: Blood Urea Nitrogen 40 mg/dL (9-23); Glucose 112 mg/dL (74-106)
--- NOTE | 2025-04-14 08:25 | ECG ---
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
[2025-04-14] MEDS: FUROSEMIDE 40 MG/4 ML VIAL IV ONE (10:41)
--- NOTE | 2025-04-14 13:03 | DVHPN2 ---
Progress Note - Dictate Date Seen: Apr 14, 2025 Medical Necessity Reason Pt with a Central, PICC or Fol: No Subjective PT WITH SEVERE ANEMIA PREVIOUS ADMISSION FOR GI BLEED NOW WITH ANEMIA CONFOUNDED BY LOW RETIC COUNT MYELODYSPLASTIC SYNDROME NOW WITH ACTIVE RECTAL BLEED HX OF PROCTITIS MULTIPLE RECENT TRANSFUSIONS ALL ANTI COAGULANTS HAVE BEEN DISCONTINUED The patient with history of ischemic cardiomyopathy, depressed left ventricular ejection fraction, Bi-V AICD The patient with congestive heart failure, EF less than 20%. The patient recently had atrial fibrillation that required cardioversion as well. The patient also had recent coronary angiography, shows patent vessels. Not a candidate for any revascularization at this time. He is very compliant on his medication and also very compliant in terms of following his regimen at the congestive heart failure clinic. He has been doing extremely well and his weight has been very stable. His fluid status has been very stable as well. PERTINENT MEDICAL HISTORY: Significant for: * Ischemic cardiomyopathy. * Coronary artery disease and coronary artery bypass grafting. * Hypertension. * Hyperlipidemia. BIV AICD MR/TR REVIEW OF SYSTEMS: He denies any fever or chills, +hematochezia. No bleeding diathesis. No hematemesis or hemoptysis. No history of any liver disease. No history of lung disease. vital signs Vital Sign Date Time Temp Pulse Resp B/P (MAP) Pulse Ox O2 Delivery O2 Flow Rate FiO2 04/14/25 10:41 106/57 04/14/25 10: 100 14 99 04/14/25 10:00 Nasal Cannula* 3 32 04/14/25 09:00 97.6 97.6 Total Intake and Output 04/13/25 04/13/25 04/14/25 15:00 23:00 07:00 Intake Total 400 ml 0 ml Output Total 450 ml 200 ml Balance -50 ml -200 ml medications Current Medications Medications Dose Ordered Sig/Meenu Route Start Time Stop Time Status Last Admin Dose Admin Ondansetron HCl 4 mg Q4HP PRN IV 04/06/25 23:00 04/07/25 06:15 4 MG Diagnostic Test (Pha) 1 strip ACHS 04/07/25 07:00 04/14/25 12:53 1 STRIP Insulin Human Regular ACHS SC 04/07/25 07:00 04/14/25 12:53 4 UNITS Dextrose 50 ml UD PRN IV 04/06/25 23:00 Atorvastatin Calcium 20 mg HS PO 10/8/25 22:00 04/13/25 21:38 20 MG Gabapentin 300 mg DAILY PO 04/07/25 10:00 04/14/25 10:41 300 MG Acetaminophen 325 mg Q4HP PRN PO 04/08/25 01:00 04/11/25 09:00 325 MG Tamsulosin HCl 0.4 mg QPM PO 04/09/25 18:00 UNV Doxycycline Hyclate 100 ml @ 50 mls/hr Q12H IV 04/12/25 12:15 04/14/25 12:52 50 MLS/HR Ipratropium [place] 0.5 mg Q4HR NEB 04/13/25 06:00 04/14/25 10:31 0.5 MG Levalbuterol HCl 0.625 mg Q4HR NEB 04/13/25 06:00 04/14/25 10:31 0.625 MG Pantoprazole Sodium 40 mg DAILY@0600 PO 04/14/25 06:00 04/14/25 06:31 40 MG Guaifenesin/ Dextromethorphan 10 ml Q4HP PRN PO 04/13/25 13:45 Cefepime HCl 50 ml @ 12.5 mls/hr HS IV 04/13/25 22:00 04/13/25 21:39 12.5 MLS/HR objective PHYSICAL EXAMINATION: VITAL SIGNS: Blood pressure is 104/82, pulse of 80 and irregular. HEENT: Pupils are reactive. Funduscopic exam is benign. Sclerae anicteric. Oral mucosa moist. NECK: No JVD appreciated. Carotid pulses are 2+ symmetrical. No cervical adenopathy, no supraclavicular adenopathy. No nuchal rigidity. PULMONARY: Crackles at the bases. CARDIOVASCULAR: Regular rate. PMI is diffuse, laterally displaced however. ABDOMEN: Soft, nontender. Normal bowel sounds.STOOL GUAIAC POSITIVE, BRIGHT RED BLOOD SKIN: Unremarkable. EXTREMITIES: Unremarkable, other than 1+ edema, 2+ pulses. NEUROLOGIC: The patient is intact. laboratory and microbiology Laboratory Tests 04/14/25 05:07 Test 04/14/25 05:07 Range/Units Serum Glucose 112 H 74-106 mg/dL Problem List PANCYTOPENIA MYELODYSPLASTIC SYNDROME HX OF PROCTITIS MULTIPLE RECENT TRANSFUSIONS ALL ANTI COAGULANTS HAVE BEEN DISCONTINUED The patient with history of ischemic cardiomyopathy, depressed left ventricular ejection fraction, Bi-V AICD The patient with congestive heart failure, EF less than 20%. The patient recently had atrial fibrillation that required cardioversion as well. The patient also had recent coronary angiography, shows patent vessels. Not a candidate for any revascularization at this time. He is very compliant on his medication and also very compliant in terms of following his regimen at the congestive heart failure clinic. He has been doing extremely well and his weight has been very stable. His fluid status has been very stable as well. * Ischemic cardiomyopathy. * Coronary artery disease and coronary artery bypass grafting. * Hypertension. * Hyperlipidemia. BIV AICD MR/TR EF <20% Assessment/Plan TRANSFUSION KEEP HCT >28% LOW IRON STORE EPOGEN BUT ELEVATED FERRITIN CHELATION CONSIDER DESFERRIOXAMINE 40/MG/KG/DAY X 5 DAYS OTHER OPTION IS ORAL CHELATOR ELEVATED BNP/ ABOVE HIS BASELINE DOBUTAMINE DCed DOBUTAMINE SECONDARY TO REFLEX TACHYCARDIA AND HIGH OUTPUT STATE SECONDARY TO SEVERE ANEMIA CXR MULTIPLE CONSOLIDATION/ INFILTRATE DC FLAGYL DOXYCYCLINE RESUME DOBUTAMINE THORACENTESIS ON 04/13/25 LARGE RIGHT SIDED EFFUSION S/P THORACENTESIS 600 CC OF SEROUS FLUID REMOVED START PT TESTOSTERONE REPLACEMENT MONITOR HR Dietary Evaluation Review Recommendations by RD: Protein Supplementation Comments: 1) Initiate Glucerna tid 2) Initiate vitamin C @ 500 mg bid for 7-10 days 3) Follow-up with cardiology, pulmonology, and nephrology 4) Continue to monitor I&O, labs, and skin integrity Expected Outcomes/Goals: 1) appetite and labs to improve 2) wound to improve 3) f/u in 3-5 days Plan discussed with: Patient Critical Care Time(min): 35 CC Plasma Assessment Blood Product Administration S: 0530 GILDA WOO MD Apr 14, 2025 13:03
[2025-04-14 14:07] LABS: Glucose, Body Fluid 96.0 mg/dL (.); LD, Body Fluid 138.0 IU/L (.)
[2025-04-14] MEDS: TESTOSTERONE CYPIONATE 200 MG/ML 1ML VIAL IM ONE (16:48)
--- NOTE | 2025-04-14 20:04 | DVHPNRES ---
Progress Note Date Seen: Apr 14, 2025 Resident Creating Document: JOAQUIN RICE RESIDENT Medical Necessity Reason Pt with a Central, PICC or Fol: No Subjective Review of Systems This is a 89-year-old male with past medical history of HFrEF with EF 25-35% prosthetic aortic valve, CAD with CABG, status post CRTD, severe anemia, type 2 diabetes mellitus, hyperlipidemia, presented to the ER with chief complain of generalized weakness. Patient also complained of shortness of breaths, fever since last few days, unable to elaborate further. He also complained of diarrhea since last 2 days with 3 episodes daily, described as running brown stools, no blood seen. Uses home oxygen, unsure of oxygen required at home. Patient was seen and examined at bedside. Overnight events were reviewed. The patient was too weak to speak. He denies chest pain, shortness of breath, abdominal pain, fever or any other Objective vital signs Vital Sign Date Time Temp Pulse Resp B/P (MAP) Pulse Ox O2 Delivery O2 Flow Rate FiO2 04/14/25 18:07 98 22 100 04/14/25 17:59 Nasal Cannula* 3 32 04/14/25 17:00 98.1 100/72 (81) 98.1 Total Intake and Output 04/13/25 04/13/25 04/14/25 15:00 23:00 07:00 Intake Total 400 ml 0 ml Output Total 450 ml 200 ml Balance -50 ml -200 ml medications Current Medications Medications Dose Ordered Sig/Meenu Route Start Time Stop Time Status Last Admin Dose Admin Ondansetron HCl 4 mg Q4HP PRN IV 04/06/25 23:00 04/07/25 06:15 4 MG Diagnostic Test (Pha) 1 strip ACHS 04/07/25 07:00 04/14/25 17:00 1 STRIP Insulin Human Regular ACHS SC 04/07/25 07:00 04/14/25 18:03 3 UNITS Dextrose 50 ml UD PRN IV 04/06/25 23:00 Atorvastatin Calcium 20 mg HS PO 04/07/25 22:00 04/13/25 21:38 20 MG Gabapentin 300 mg DAILY PO 04/07/25 10:00 04/14/25 10:41 300 MG Acetaminophen 325 mg Q4HP PRN PO 04/08/25 01:00 04/11/25 09:00 325 MG Tamsulosin HCl 0.4 mg QPM PO 04/09/25 18:00 UNV Doxycycline Hyclate 100 ml @ 50 mls/hr Q12H IV 04/12/25 12:15 04/14/25 12:52 50 MLS/HR Ipratropium [place] 0.5 mg Q4HR NEB 04/13/25 06:00 04/14/25 17:59 0.5 MG Levalbuterol HCl 0.625 mg Q4HR NEB 04/13/25 06:00 04/14/25 18:00 0.625 MG Pantoprazole Sodium 40 mg DAILY@0600 PO 04/14/25 06:00 04/14/25 06:31 40 MG Guaifenesin/ Dextromethorphan 10 ml Q4HP PRN PO 04/13/25 13:45 Cefepime HCl 50 ml @ 12.5 mls/hr HS IV 04/13/25 22:00 04/13/25 21:39 12.5 MLS/HR Examination Pt is lying on bed General Appearance: Nasal cannula oxygen, Alert, Oriented X3, Cooperative, Mild distress HEENT: Atraumatic, Mucous membranes moist/pink Respiratory: Clear to auscultation, Normal air movement, No added sounds Cardiovascular: Regular rate, Normal S1, Normal S2, No murmurs, pacemaker placed in left-sided chest wall, right-sided chest wall has a Port-A-Cath for dobutamine infusion Abdominal/ : Active bowel sounds, Soft, no distention, no tenderness Extremities: No edema, Normal pulses, No tenderness/swelling Skin: No Significant rash, except past surgical scars Neuro: Normal speech, sensorimotor deficits none Psych/Mental Status: Mental status NL, Mood NL Nurse was there as supervisor process testing during examination laboratory and microbiology Laboratory Tests 04/14/25 05:07 Test 04/14/25 05:07 Range/Units Serum Glucose 112 H 74-106 mg/dL Microbiology Date/Time Source Procedure Growth Status 04/13/25 09:15 Pleural Fluid Gram Stain - Final Resulted 04/13/25 09:15 Pleural Fluid Aerobic Culture - Preliminary Resulted 04/10/25 10:05 Blood Blood Culture - Preliminary NO GROWTH AFTER 72 HOURS OF INCUBATION. Resulted 04/09/25 08:15 Stool Clostridium difficile Toxin Assay - Final Complete 04/08/25 11:28 Voided Urine Urine Culture - Final Presumptive Rama albicans Complete 04/07/25 17:35 Nose MRSA Screen - Final Complete Labs and/or images reviewed: Labs reviewed by me, Image(s) reviewed by me Problem List/Assessment/Plan Problem List/Assessment/Plan Acute on chronic respiratory failure Acute on chronic systolic heart failure with LVEF< 20% Prosthetic aortic valve History of CAD with CABG Status post MANAGER SOCIAL D (Bi-V AICD) Ischemic cardiomyopathy H/o recent Afib with cardioversion Chest US shows bilateral pleural effusions. Ultrasound guided thoracentesis performed on 04/13/2025: Large right-sided effusion, 600 cc of serous fluid removed Currently on oxygen therapy with nasal cannula2 L/min (unknown home oxygen requirement levels) BNP 2947 Restart furosemide 40 mg b.i.d. after transfusion Dobutamin drip was started on 04/08/2025, discontinued today due to tachycardia and high output state due to anemia. Lactic acid up trending 2.1> 2.4 Dobutamine drip was restarted, because the patient is congested. Strict I and OThe patient with history of ischemic EKG shows Ventricular-paced rhythm Breathing treatment levalbuterol and ipratropium given. Dobutamine discontinued again on 04/12/2025 due to tachycardia Patient is on cefepime and doxycycline Recent coronary angiography, shows patent vessels. Not a candidate for any revascularization at this time. (According to DR. VO, He is very compliant on his medication and also very compliant in terms of following his regimen at the congestive heart failure clinic. He has been doing extremely well and his weight has been very stable. His fluid status has been very stable as well.) Superficial vein thrombosis Status post thoracentesis left upper extremity venous duplex on 04/13/2025 revealed basilic vein thrombus 1 dose of aspirin was given, later discontinued warm compression Rule out Active GI bleed Severe Normocytic, normochromic Anemia, likely due to blood loss Myelodysplastic syndrome H/o multiple recent blood transfusions Acute infectious gastroenteritis H/o proctitis Hemoglobin down to 6.8 Colonoscopy last year was normal. Stool occult blood ordered; GI consult deferred for now Low iron, TIBC,% saturation, elevated reticulocyte count PRBCs Holding off IV fluids due to systolic heart failure exacerbation IV ceftriaxone, metronidazole stool occult blood test negative. low retic count elevated ferritin: chelation, consider desferoxamine 40mg/kg/day for 5 days, other options oral chelator Pneumonia due to gram positive or negative organism CXR; multiple consolidations or infiltrate Doxycycline Discontinued flagyl. History of BPH Complicated UTI Continue Flomax Urine culture growing called Rama albicans, however, fluconazole held due to prolonged QT interval. Peripheral neuropathy Gabapentin NSTEMI probable type 2 Elevated troponin Monitor troponin, EKG Hyponatremia CHRISTOPHER on CKD likely due to VMN GFR-33 Strict control of blood pressure, diabetes Discussed avoiding nephrotoxins like NSAIDS, contrast Low salt diet, maintain hydration Repeat BMP Type 2 diabetes mellitus Sliding scale insulin A1c 6.6 on 03/10/2025 Monitor blood glucose Diabetes education Diabetic diet Hyperlipidemia Atorvastatin 20 mg daily DVT PROPHYLAXIS: Holding off Lovenox, due to possibility of active GI bleed GI PROPHYLAXIS: Protonix Plan discussed with: Patient, Other (RN) Dietary Evaluation Review Recommendations by RD: Protein Supplementation Comments: 1) Initiate Glucerna tid 2) Initiate vitamin C @ 500 mg bid for 7-10 days 3) Follow-up with cardiology, pulmonology, and nephrology 4) Continue to monitor I&O, labs, and skin integrity Expected Outcomes/Goals: 1) appetite and labs to improve 2) wound to improve 3) f/u in 3-5 days CC Plasma Assessment Blood Product Administration S: 0530 Date of Service: Apr 14, 2025 Billing Provider: SMILEY BARCENAS MD Common Visit Codes: [id number] INP/OBS CARE(HIGH) JOAQUIN RICE RESIDENT Apr 14, 2025 20:04 SMILEY BARCENAS MD Apr 15, 2025 22:32
[2025-04-15] VITALS (27 sets, daily range): BP systolic 91–135; BP diastolic 32–74; PULSE 98–118; RESP 15–28; TEMP 97.5–98; O2SAT 90–100
[2025-04-15] MEDS: MORPHINE SULFATE INJ 2 MG/ml SYRG IV ONE (02:29)
[2025-04-15 03:56] LABS: Hematocrit 28.1 % (41.0-53.0); Hemoglobin 9.4 g/dL (13.5-17.5)
[2025-04-15] MEDS: HYDROcodone-ACET 5/325MG TAB PO ONE (05:28)
--- NOTE | 2025-04-15 06:04 | DVH ---
CHEST RADIOGRAPH Indication: chest pain Technique: Single frontal view of the chest was obtained COMPARISON: XY CHEST PORTABLE on DOS: 04/13/25, XY CHEST PORTABLE on DOS: 04/13/25, XY CHEST XRAY 1 V IEW on DOS: 04/12/25, XY CHEST XRAY 1 VIEW on DOS: 04/11/25, US CHEST ULTRASOUND on DOS: 04/09/25 FINDINGS: Lines and Tubes: Right chest port in satisfactory position. Left chest AICD. Lungs: Increased multifocal airspace disease. Pleura: No effusion. No pneumothorax. Cardiomediastinal contours: Cardiomegaly. Bones: Unremarkable. IMPRESSION: Increased multifocal airspace disease.
[2025-04-15 06:44] LABS: Hematocrit 28.9 % (41.0-53.0); Hemoglobin 9.9 g/dL (13.5-17.5); Mean Corpuscular Hemoglobin 30.1 pg (28.0-32.0); Mean Corpuscular Volume 88.3 fL (80.0-100.0); Nucleated Red Blood Cells % 0.2 %
[2025-04-15 06:58] LABS: Chloride 102 mmol/L (98-107); Potassium 4.6 mmol/L (3.5-5.1)
[2025-04-15 06:59] LABS: Anion Gap 13 (5-15)
[2025-04-15 07:03] LABS: Calcium 8.5 mg/dL (8.7-10.4); Carbon Dioxide 18 mmol/L (20-31); Sodium 133 mmol/L (136-145)
[2025-04-15 07:04] LABS: BUN/Creatinine Ratio 21.6 (10.0-20.0)
--- NOTE | 2025-04-15 07:06 | DVHPN2 ---
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 The patient recently had atrial fibrillation that required cardioversion as well. The patient also had recent coronary angiography, shows patent vessels. Not a candidate for any revascularization at this time. He is very compliant on his medication and also very compliant in terms of following his regimen at the congestive heart failure clinic. He has been doing extremely well and his weight has been very stable. His fluid status has been very stable as well. PERTINENT MEDICAL HISTORY: Significant for: * Ischemic cardiomyopathy. * Coronary artery disease and coronary artery bypass grafting. * Hypertension. * Hyperlipidemia. BIV AICD MR/TR REVIEW OF SYSTEMS: He denies any fever or chills, +hematochezia. No bleeding diathesis. No hematemesis or hemoptysis. No history of any liver disease. No history of lung disease. vital signs Vital Sign Date Time Temp Pulse Resp B/P (MAP) Pulse Ox O2 Delivery O2 Flow Rate FiO2 04/15/25 05:00 98.0 107 17 135/74 (94) 92 98.0 04/15/25 02:11 Nasal Cannula* 3 32 Total Intake and Output 04/14/25 04/14/25 04/15/25 15:00 23:00 07:00 Intake Total 100 ml 250 ml 210 ml Output Total 1180 ml Balance 100 ml -930 ml 210 ml medications Current Medications Medications Dose Ordered Sig/Meenu Route Start Time Stop Time Status Last Admin Dose Admin Ondansetron HCl 4 mg Q4HP PRN IV 04/06/25 23:00 04/07/25 06:15 4 MG Diagnostic Test (Pha) 1 strip ACHS 04/07/25 07:00 04/15/25 06:04 1 STRIP Insulin Human Regular ACHS SC 04/07/25 07:00 04/14/25 21:41 2 UNITS Dextrose 50 ml UD PRN IV 04/06/25 23:00 Atorvastatin Calcium 20 mg HS PO 04/07/25 22:00 04/13/25 21:38 20 MG Gabapentin 300 mg DAILY PO 04/07/25 10:00 04/14/25 10:41 300 MG Acetaminophen 325 mg Q4HP PRN PO 04/08/25 01:00 04/11/25 09:00 325 MG Tamsulosin HCl 0.4 mg QPM PO 04/09/25 18:00 UNV Doxycycline Hyclate 100 ml @ 50 mls/hr Q12H IV 04/12/25 12:15 04/15/25 01:11 50 MLS/HR Ipratropium [place] 0.5 mg Q4HR NEB 04/13/25 06:00 04/15/25 06:57 0.5 MG Levalbuterol HCl 0.625 mg Q4HR NEB 04/13/25 06:00 04/15/25 06:57 0.625 MG Guaifenesin/ Dextromethorphan 10 ml Q4HP PRN PO 04/13/25 13:45 Cefepime HCl 50 ml @ 12.5 mls/hr HS IV 04/13/25 22:00 04/14/25 21:40 12.5 MLS/HR Pantoprazole Sodium 40 mg BID IV 04/15/25 10:00 objective PHYSICAL EXAMINATION: VITAL SIGNS: Blood pressure is 104/82, pulse of 80 and irregular. HEENT: Pupils are reactive. Funduscopic exam is benign. Sclerae anicteric. Oral mucosa moist. NECK: No JVD appreciated. Carotid pulses are 2+ symmetrical. No cervical adenopathy, no supraclavicular adenopathy. No nuchal rigidity. PULMONARY: Crackles at the bases. CARDIOVASCULAR: Regular rate. PMI is diffuse, laterally displaced however. ABDOMEN: Soft, nontender. Normal bowel sounds.STOOL GUAIAC POSITIVE, BRIGHT RED BLOOD SKIN: Unremarkable. EXTREMITIES: Unremarkable, other than 1+ edema, 2+ pulses. NEUROLOGIC: The patient is intact. laboratory and microbiology Laboratory Tests 04/15/25 05:33 Test 04/15/25 05:33 Range/Units Serum Glucose Pending Problem List PANCYTOPENIA MYELODYSPLASTIC SYNDROME HX OF PROCTITIS MULTIPLE RECENT TRANSFUSIONS ALL ANTI COAGULANTS HAVE BEEN DISCONTINUED The patient with history of ischemic cardiomyopathy, depressed left ventricular ejection fraction, Bi-V AICD The patient with congestive heart failure, EF less than 20%. The patient recently had atrial fibrillation that required cardioversion as well. The patient also had recent coronary angiography, shows patent vessels. Not a candidate for any revascularization at this time. He is very compliant on his medication and also very compliant in terms of following his regimen at the congestive heart failure clinic. He has been doing extremely well and his weight has been very stable. His fluid status has been very stable as well. * Ischemic cardiomyopathy. * Coronary artery disease and coronary artery bypass grafting. * Hypertension. * Hyperlipidemia. BIV AICD MR/TR EF <20% Assessment/Plan TRANSFUSION KEEP HCT >28% LOW IRON STORE EPOGEN BUT ELEVATED FERRITIN CHELATION CONSIDER DESFERRIOXAMINE 40/MG/KG/DAY X 5 DAYS OTHER OPTION IS ORAL CHELATOR ELEVATED BNP/ ABOVE HIS BASELINE DOBUTAMINE DCed DOBUTAMINE SECONDARY TO REFLEX TACHYCARDIA AND HIGH OUTPUT STATE SECONDARY TO SEVERE ANEMIA CXR MULTIPLE CONSOLIDATION/ INFILTRATE DC FLAGYL DOXYCYCLINE RESUME DOBUTAMINE THORACENTESIS ON 04/13/25 LARGE RIGHT SIDED EFFUSION S/P THORACENTESIS 600 CC OF SEROUS FLUID REMOVED START PT TESTOSTERONE REPLACEMENT MONITOR HR H/H STABLE Dietary Evaluation Review Recommendations by RD: Protein Supplementation Comments: 1) Initiate Glucerna tid 2) Initiate vitamin C @ 500 mg bid for 7-10 days 3) Follow-up with cardiology, pulmonology, and nephrology 4) Continue to monitor I&O, labs, and skin integrity Expected Outcomes/Goals: 1) appetite and labs to improve 2) wound to improve 3) f/u in 3-5 days Plan discussed with: Patient Critical Care Time(min): 35 CC Plasma Assessment Blood Product Administration S: [id number] GILDA WOO MD Apr 15, 2025 07:06
[2025-04-15 07:09] LABS: Blood Urea Nitrogen 47 mg/dL (9-23); Glucose 119 mg/dL (74-106)
--- NOTE | 2025-04-15 07:50 | ECG ---
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
--- NOTE | 2025-04-15 08:06 | ECG ---
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
[2025-04-15] MEDS: PANTOPRAZOLE 40 MG/10 ML VIAL INJ IV SCH (10:11)
[2025-04-15] MEDS: MAGNESIUM SULFATE 1GM/100ML 100 ML IV SCH (10:13)
[2025-04-15] MEDS: LIDOCAINE 1% (LOCAL ANESTH.) PF 5ml SDV ID ONE (13:30)
--- NOTE | 2025-04-15 13:45 | DVH ---
CHEST RADIOGRAPH Indication: PICC line placement Technique: Single frontal view of the chest was obtained Comparison: XY CHEST PORTABLE on DOS: 04/15/25, XY CHEST PORTABLE on DOS: 04/13/25, XY CHEST PORTABLE on DOS: 04/13/25 FINDINGS: Lines and Tubes: No change in position of the right PICC line or AICD biventricular pacemaker. Lungs: Stable multi focal airspace disease throughout the right chest with increasing airspace diseas e on the left. Pleura: No effusion. No pneumothorax. Cardiomediastinal contours: Unremarkable Bones: No acute osseous abnormality. IMPRESSION: 1. Stable cardiomegaly 2. Stable airspace disease on the right with increasing airspace disease on the left. 3. PICC line and AICD biventricular pacemaker in place
[2025-04-15] MEDS: FUROSEMIDE 40 MG/4 ML VIAL IV ONE (16:37)
[2025-04-15] MEDS: BUMETANIDE INJECTION 12.5 MG in GIVE UN-DILUTED 0 ML IV SCH (17:01)
--- NOTE | 2025-04-15 17:29 | DVHPNRES ---
Progress Note Date Seen: Apr 15, 2025 Resident Creating Document: JOAQUIN RICE RESIDENT Medical Necessity Reason Pt with a Central, PICC or Fol: No Subjective Review of Systems This is a 89-year-old male with past medical history of HFrEF with EF 25-35% prosthetic aortic valve, CAD with CABG, status post CRTD, severe anemia, type 2 diabetes mellitus, hyperlipidemia, presented to the ER with chief complain of generalized weakness. Patient also complained of shortness of breaths, fever since last few days, unable to elaborate further. He also complained of diarrhea since last 2 days with 3 episodes daily, described as running brown stools, no blood seen. Uses home oxygen, unsure of oxygen required at home. Previous hospitalization: Admitted in March 2025 in [facility] for active rectal bleed, requiring multiple transfusions PMHx: HFrEF with EF 25-35% prosthetic aortic valve with requirement of intermittent Dobutamine and home oxygen requirement (unsure amount of flow), CAD with CABG, status post CRTD, severe anemia, type 2 diabetes mellitus, hyperlipidemia, CKD 3B, GI bleed. Colonoscopy 1 year ago was normal PSHx: CABG, hernia repair, PACKING TRACTOR MACHINE OPERATOR-D placement, Port-a-cath for inotropic medication Social history: Denies smoking, alcohol use, recreational drug use. Lives in house with son. Full code, next to kin is son. Home medication: Atorvastatin, Bumex, cetirizine, insulin, lorazepam, pramipexole, tamsulosin, Entresto, Jardiance, gabapentin, [place] Allergic history: No known allergy review of systems Patient seen and examined at bedside. Increased work of with the Passy muscle use, chest x-ray showed worsening congestion Patient was shifted to ICU and started on Bumex drip Objective vital signs Vital Sign Date Time Temp Pulse Resp B/P (MAP) Pulse Ox O2 Delivery O2 Flow Rate FiO2 04/15/25 17:01 110/47 04/15/25 14:44 116 28 98 04/15/25 14:36 Nasal Cannula* 5 40 04/15/25 05:00 98.0 98.0 Total Intake and Output 04/14/25 04/14/25 04/15/25 15:00 23:00 07:00 Intake Total 100 ml 250 ml 210 ml Output Total 1180 ml Balance 100 ml -930 ml 210 ml medications Current Medications Medications Dose Ordered Sig/Meenu Route Start Time Stop Time Status Last Admin Dose Admin Ondansetron HCl 4 mg Q4HP PRN IV 04/06/25 23:00 04/07/25 06:15 4 MG Diagnostic Test (Pha) 1 strip ACHS 04/07/25 07:00 04/15/25 17:00 1 STRIP Insulin Human Regular ACHS SC 04/07/25 07:00 04/14/25 21:41 2 UNITS Dextrose 50 ml UD PRN IV 04/06/25 23:00 Atorvastatin Calcium 20 mg HS PO 04/07/25 22:00 04/13/25 21:38 20 MG Gabapentin 300 mg DAILY PO 04/07/25 10:00 04/14/25 10:41 300 MG Acetaminophen 325 mg Q4HP PRN PO 04/08/25 01:00 04/11/25 09:00 325 MG Tamsulosin HCl 0.4 mg QPM PO 04/09/25 18:00 UNV Doxycycline Hyclate 100 ml @ 50 mls/hr Q12H IV 04/12/25 12:15 04/15/25 01:11 50 MLS/HR Ipratropium [place] 0.5 mg Q4HR NEB 04/13/25 06:00 04/15/25 14:36 0.5 MG Levalbuterol HCl 0.625 mg Q4HR NEB 04/13/25 06:00 04/15/25 14:36 0.625 MG Guaifenesin/ Dextromethorphan 10 ml Q4HP PRN PO 04/13/25 13:45 Cefepime HCl 50 ml @ 12.5 mls/hr HS IV 04/13/25 22:00 04/14/25 21:40 12.5 MLS/HR Pantoprazole Sodium 40 mg BID IV 04/15/25 10:00 04/15/25 10:11 40 MG Bumetanide 12.5 mg/Miscellaneous 50 ml @ 2 mls/hr Q24H IV 04/15/25 12:45 04/15/25 17:01 2 MLS/HR Sodium Chloride 10 ml QSHIFT@10,22 IV 04/15/25 22:00 Examination Gen - mild pallor, no icterus, no cyanosis, bilateral lower extremity 1+ edema . Skin - Patients skin is warm and dry. HEENT - normocephalic, atraumatic, moist mucous membranes. Neck - full ROM, no LAD, elevated JVP Pulmonary - B/L decreased breath sounds with diffuse coarse crackles cardiovascular - regular S1,S2 heard, peripheral pulses normal radial 2+, pedal 2+. capillary refill normal <3 secs. GI - soft, nontender abdomen Bowel sounds normoactive Neurological - Patient is A/O X 2 . Decreased strength in the bilateral upper extremities, no facial droop, comprehensible speech Patient is weak laboratory and microbiology Laboratory Tests 04/15/25 05:33 Test 04/15/25 05:33 Range/Units Serum Glucose 119 H 74-106 mg/dL Microbiology Date/Time Source Procedure Growth Status 04/13/25 09:15 Pleural Fluid Gram Stain - Final Resulted 04/13/25 09:15 Pleural Fluid Aerobic Culture - Preliminary Resulted 04/10/25 10:05 Blood Blood Culture - Final NO GROWTH AFTER 5 DAYS OF INCUBATION. 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 Status post PACKING TRACTOR MACHINE OPERATOR D (Bi-V AICD) Ischemic cardiomyopathy H/o recent Afib with cardioversion S/p Port-a cath with intermittant ionotropic drip - inital chest x-ray shows bilateral congestion with a right pleural effusion - status post right thoracentesis with drainage of 600ml fluid - repeat chest x-ray today showed worsening congestion - on Bumex drip - strict input and output Possible pneumonia likely due to Gram +/- bacteria Bilateral pulmonary edema likely due to CHF exacerbation Right pleural effusion status post thoracentesis - IV cefepime and doxycycline - duo nebs q.4 hours - Bumex drip CHRISTOPHER on CKD likely due to VMN hypervolemic hyponatremia, resolving - fluid overload, diuresis - function and electrolytes - keep potassium above 4 and magnesium 2 Severe Normocytic, normochromic Anemia s/p PRBC infusion H/o multiple recent blood transfusions FOBT negative one unit of PRBCs given IV iron given Superficial vein thrombosis warm compression, no anticoagulant since the patient is high risk for bleeding History of BPH Complicated UTI Continue Flomax Type 2 diabetes mellitus Sliding scale insulin A1c 6.6 on 03/10/2025 DVT prophylaxis: Holding off Lovenox as the patient is at high risk of bleeding GI prophylaxis: Protonix Left upper arm PICC line placed on 04/15/2025 Goals of care discussed with the patient's son Thierno for over 27 mins. Code status: DNR Plan discussed with Dr Varghese Plan discussed with: Patient, Son (Thierno), Other (RN) My Orders My Orders Orders - JOAQUIN RICE Procedure Category Date Status Time Insert Midline ORDERS 04/15/25 Transmitted 12:23 Dietary Evaluation Review Recommendations by RD: Protein Supplementation Comments: 1) Initiate Glucerna tid 2) Initiate vitamin C @ 500 mg bid for 7-10 days 3) Follow-up with cardiology, pulmonology, and nephrology 4) Continue to monitor I&O, labs, and skin integrity Expected Outcomes/Goals: 1) appetite and labs to improve 2) wound to improve 3) f/u in 3-5 days CC Plasma Assessment Blood Product Administration S: [id number] Date of Service: Apr 15, 2025 Billing Provider: SMILEY VARGHESE MD Common Visit Codes: [id number] INP/OBS CARE(HIGH) JOAQUIN RICE Apr 15, 2025 17:29 IZZY PEPE RESIDENT Apr 15, 2025 23:08 SMILEY VARGHESE MD Apr 15, 2025 23:10
[2025-04-15] MEDS ORDERED: FUROSEMIDE 40 MG/4 ML VIAL IV SCH (18:00)
[2025-04-15] MEDS: MAGNESIUM SULFATE 1GM/100ML 100 ML IV ONE (20:17)
[2025-04-15] MEDS: SODIUM CHLOR 0.9% PF (SALINE LOCK) 10ML VIAL/SYR IV SCH (22:43)
[2025-04-15] MEDS: HYDROmorphone HCL 2 MG/ML VL/or syr IV PRN (23:31)
--- NOTE | 2025-04-15 23:54 | DVH ---
ABDOMINAL ULTRASOUND , limited CLINICAL HISTORY: FLUID CHECK TECHNIQUE: Multiple grayscale images obtained of the abdomen to check for ascites WID: COMPARISON: None FINDINGS /impression: [id number] ascites in the bilateral lower quadrants.
--- NOTE | 2025-04-15 23:58 | DVH ---
BILATERAL LOWER EXTREMITY ARTERIAL DOPPLER ULTRASOUND CLINICAL HISTORY: Weak left dorsalis pedis pulse. TECHNIQUE: Multiple grayscale, color Doppler and spectral Doppler ultrasound images were obtained of bilateral legs for evaluation of the peripheral arteries. COMPARISON: None FINDINGS: The common femoral (WELDING MACHINE OPERATOR RESISTANCE), upper deep femoral, superficial femoral (SFA), popliteal, anterior tibial ( SRUTHI), posterior tibial (VEGETABLE CANNER), and dorsalis pedis arteries were evaluated on this exam. Grayscale images demonstrate ivkw-[id number] mixed atherosclerotic plaque within the bilateral lower extremities. Right: Color doppler images demonstrate no visible stenosis or occlusion. Spectral analysis demonstrates no rmal, high-resistive blood flow. Systolic acceleration is normal. Biphasic blood flow throughout the right lower extremity with the exception of the WELDING MACHINE OPERATOR RESISTANCE which demonstrate triphasic blood flow No signif icant change in velocity to suggest high-grade stenosis. Velocities: In cm/sec WELDING MACHINE OPERATOR RESISTANCE: 126; proximal deep femoral: 99; superficial femoral artery proximal 81, mid 71, distal 79; popli teal: 109; posterior tibial: 45; anterior tibial: 62 ; dorsalis pedis: 68 There is a López's cyst in the popliteal fossa measuring 3.2 cm. Left: Color doppler images demonstrate no visible stenosis or occlusion. Spectral analysis demonstrates no rmal, high-resistive blood flow. Systolic acceleration is normal. Biphasic blood flow throughout the left lower extremity. No significant change in velocity to suggest high-grade stenosis. Velocities: In cm/sec WELDING MACHINE OPERATOR RESISTANCE: 161; proximal deep femoral: 76; superficial femoral artery proximal 58, mid 70, distal 75; popli teal: 109; posterior tibial: 60; anterior tibial: 37 ; dorsalis pedis: 41 There is a López's cyst in the popliteal fossa measuring 3.7 cm. IMPRESSION: 1. No evidence of focal stenosis or significant arterial insufficiency in the bilateral lower extremi ties. 2. Fbvw-rs-[id number] mixed atherosclerotic plaque in the bilateral lower extremities. 3. López's cysts in the bilateral popliteal fossa.
[2025-04-16] VITALS (86 sets, daily range): BP systolic 71–128; BP diastolic 40–69; PULSE 91–116; RESP 5–27; TEMP 97–98.7; O2SAT 88–100
[2025-04-16] MEDS: NOREPINEPHRINE 8 MG/250ML KIT 250 ML IV SCH (01:04)
[2025-04-16 04:02] LABS: Chloride 102 mmol/L (98-107); Potassium 4.9 mmol/L (3.5-5.1)
[2025-04-16 04:03] LABS: Anion Gap 14 (5-15)
[2025-04-16 04:05] LABS: Hematocrit 26.9 % (41.0-53.0); Hemoglobin 8.9 g/dL (13.5-17.5); Mean Corpuscular Hemoglobin 29.5 pg (28.0-32.0); Mean Corpuscular Volume 88.8 fL (80.0-100.0); Nucleated Red Blood Cells % 0.2 %
[2025-04-16 04:08] LABS: BUN/Creatinine Ratio 23.2 (10.0-20.0)
[2025-04-16 04:09] LABS: Magnesium 2.1 mg/dL (1.6-2.6)
[2025-04-16 04:11] LABS: Blood Urea Nitrogen 59 mg/dL (9-23); Calcium 8.1 mg/dL (8.7-10.4); Carbon Dioxide 18 mmol/L (20-31); Glucose 158 mg/dL (74-106); Sodium 134 mmol/L (136-145)
--- NOTE | 2025-04-16 06:35 | DVH ---
CHEST RADIOGRAPH Indication: SOB Technique: Single frontal view of the chest was obtained Comparison: XY CHEST XRAY 1 VIEW on DOS: 04/15/25 FINDINGS: Lines and Tubes: There is a right PICC with its tip terminating in the superior vena cava. Right cent ral venous catheter terminates in the right atrium. AICD/pacemaker is noted. Aortic valve prosthesis. Lungs: Bilateral pulmonary opacities are similar to prior study. Pleura: There are bilateral pleural effusions, right greater than left similar to prior study. No pneumothorax. Cardiomediastinal contours: Cardiomegaly. Bones: No acute osseous abnormality. IMPRESSION: 1. Stable position of the support lines and tubes. 2. Stable bilateral pulmonary opacities and pleural effusions.
[2025-04-16] MEDS ORDERED: ACETAMINOPHEN 325 MG TAB PO PRN (08:45)
--- NOTE | 2025-04-16 09:43 | DVHPN2 ---
Progress Note - Dictate Date Seen: Apr 16, 2025 Medical Necessity Reason Pt with a Central, PICC or Fol: No Subjective PT WITH SEVERE ANEMIA PREVIOUS ADMISSION FOR GI BLEED NOW WITH ANEMIA CONFOUNDED BY LOW RETIC COUNT MYELODYSPLASTIC SYNDROME NOW WITH ACTIVE RECTAL BLEED HX OF PROCTITIS MULTIPLE RECENT TRANSFUSIONS ALL ANTI COAGULANTS HAVE BEEN DISCONTINUED The patient with history of ischemic cardiomyopathy, depressed left ventricular ejection fraction, Bi-V AICD The patient with congestive heart failure, EF less than 20%. The patient recently had atrial fibrillation that required cardioversion as well. The patient also had recent coronary angiography, shows patent vessels. Not a candidate for any revascularization at this time. He is very compliant on his medication and also very compliant in terms of following his regimen at the congestive heart failure clinic. He has been doing extremely well and his weight has been very stable. His fluid status has been very stable as well. PERTINENT MEDICAL HISTORY: Significant for: * Ischemic cardiomyopathy. * Coronary artery disease and coronary artery bypass grafting. * Hypertension. * Hyperlipidemia. BIV AICD MR/TR REVIEW OF SYSTEMS: He denies any fever or chills, +hematochezia. No bleeding diathesis. No hematemesis or hemoptysis. No history of any liver disease. No history of lung disease. vital signs Vital Sign Date Time Temp Pulse Resp B/P (MAP) Pulse Ox O2 Delivery O2 Flow Rate FiO2 04/16/25 09:15 101 22 106/63 (77) 96 04/16/25 08:00 Nasal Cannula* 4 36 04/16/25 08:00 98.7 98.7 Total Intake and Output 04/15/25 04/15/25 04/16/25 15:00 23:00 07:00 Intake Total 147.5 ml 187.25 ml Output Total 150 ml 225 ml Balance -2.5 ml -37.75 ml medications Current Medications Medications Dose Ordered Sig/Meenu Route Start Time Stop Time Status Last Admin Dose Admin Ondansetron HCl 4 mg Q4HP PRN IV 04/06/25 23:00 04/07/25 06:15 4 MG Diagnostic Test (Pha) 1 strip ACHS 04/07/25 07:00 04/16/25 06:55 1 STRIP Insulin Human Regular ACHS SC 04/07/25 07:00 04/16/25 06:54 2 UNITS Dextrose 50 ml UD PRN IV 04/06/25 23:00 Gabapentin 300 mg DAILY PO 04/07/25 10:00 04/14/25 10:41 300 MG Tamsulosin HCl 0.4 mg QPM PO 04/09/25 18:00 UNV Doxycycline Hyclate 100 ml @ 50 mls/hr Q12H IV 04/12/25 12:15 04/16/25 00:50 50 MLS/HR Ipratropium [place] 0.5 mg Q4HR NEB 04/13/25 06:00 04/16/25 07:44 0.5 MG Levalbuterol HCl 0.625 mg Q4HR NEB 04/13/25 06:00 04/16/25 07:44 0.625 MG Guaifenesin/ Dextromethorphan 10 ml Q4HP PRN PO 04/13/25 13:45 Cefepime HCl 50 ml @ 12.5 mls/hr HS IV 04/13/25 22:00 04/15/25 22:42 12.5 MLS/HR Pantoprazole Sodium 40 mg BID IV 04/15/25 10:00 04/15/25 22:42 40 MG Bumetanide 12.5 mg/Miscellaneous 50 ml @ 2 mls/hr Q24H IV 04/15/25 12:45 04/15/25 17:01 2 MLS/HR Sodium Chloride 10 ml QSHIFT@10,22 IV 04/15/25 22:00 04/15/25 22:43 10 ML Norepinephrine Bitartrate 250 ml @ 3.75 mls/hr Q24H IV 04/15/25 18:15 04/16/25 01:04 3.75 MLS/HR Hydromorphone HCl 0.25 mg Q4HPRN PRN IV 04/15/25 23:00 04/15/25 23:31 0.25 MG Acetaminophen 650 mg Q4HP PRN PO 04/16/25 08:45 Acetylcysteine 200 mg Q8HR NEB 04/16/25 14:00 objective PHYSICAL EXAMINATION: VITAL SIGNS: Blood pressure is 104/82, pulse of 80 and irregular. HEENT: Pupils are reactive. Funduscopic exam is benign. Sclerae anicteric. Oral mucosa moist. NECK: No JVD appreciated. Carotid pulses are 2+ symmetrical. No cervical adenopathy, no supraclavicular adenopathy. No nuchal rigidity. PULMONARY: Crackles at the bases. CARDIOVASCULAR: Regular rate. PMI is diffuse, laterally displaced however. ABDOMEN: Soft, nontender. Normal bowel sounds.STOOL GUAIAC POSITIVE, BRIGHT RED BLOOD SKIN: Unremarkable. EXTREMITIES: Unremarkable, other than 1+ edema, 2+ pulses. NEUROLOGIC: The patient is intact. laboratory and microbiology Laboratory Tests 04/16/25 03:35 Test 04/16/25 03:35 Range/Units Serum Glucose 158 H 74-106 mg/dL Problem List PANCYTOPENIA MYELODYSPLASTIC SYNDROME HX OF PROCTITIS MULTIPLE RECENT TRANSFUSIONS ALL ANTI COAGULANTS HAVE BEEN DISCONTINUED The patient with history of ischemic cardiomyopathy, depressed left ventricular ejection fraction, Bi-V AICD The patient with congestive heart failure, EF less than 20%. The patient recently had atrial fibrillation that required cardioversion as well. The patient also had recent coronary angiography, shows patent vessels. Not a candidate for any revascularization at this time. He is very compliant on his medication and also very compliant in terms of following his regimen at the congestive heart failure clinic. He has been doing extremely well and his weight has been very stable. His fluid status has been very stable as well. * Ischemic cardiomyopathy. * Coronary artery disease and coronary artery bypass grafting. * Hypertension. * Hyperlipidemia. BIV AICD MR/TR EF <20% Assessment/Plan TRANSFUSION KEEP HCT >28% LOW IRON STORE EPOGEN BUT ELEVATED FERRITIN CHELATION CONSIDER DESFERRIOXAMINE 40/MG/KG/DAY X 5 DAYS OTHER OPTION IS ORAL CHELATOR ELEVATED BNP/ ABOVE HIS BASELINE DOBUTAMINE DCed DOBUTAMINE SECONDARY TO REFLEX TACHYCARDIA AND HIGH OUTPUT STATE SECONDARY TO SEVERE ANEMIA CXR MULTIPLE CONSOLIDATION/ INFILTRATE DC FLAGYL DOXYCYCLINE RESUME DOBUTAMINE THORACENTESIS ON 04/13/25 LARGE RIGHT SIDED EFFUSION S/P THORACENTESIS 600 CC OF SEROUS FLUID REMOVED START PT TESTOSTERONE REPLACEMENT MONITOR HR H/H STABLE 04/16/25 MAY REQUIRE EPOGEN VS TRANSFUSION CHECK BNP CT CHEST/ CX WITH LEFT LATERAL DECUB CONSIDER NG FEEDING SINCE PT WITH SEVERE MALNUTRITION/ RISK OF ASPIRATION Dietary Evaluation Review Recommendations by RD: Protein Supplementation Comments: 1) Initiate Glucerna tid 2) Initiate vitamin C @ 500 mg bid for 7-10 days 3) Follow-up with cardiology, pulmonology, and nephrology 4) Continue to monitor I&O, labs, and skin integrity Expected Outcomes/Goals: 1) appetite and labs to improve 2) wound to improve 3) f/u in 3-5 days Plan discussed with: Patient Critical Care Time(min): 35 CC Plasma Assessment Blood Product Administration S: 0530 GILDA WOO MD Apr 16, 2025 09:42
--- NOTE | 2025-04-16 10:49 | ECG ---
[facility] Test Date: 2025-04-15 Test Time: 01:51:26 Pat Name: GEOVANNA KAUR Department: Respiratoy Room: 0205T Gender: M [employer] Technician: : [id number] Requested By: GILDA WOO Order Number: [id number] Reading MD: Tomi Moreno Measurements Intervals Center [place] Rate: 104 P: 81 [place]: 29 QRS: 247 QRSD: 134 T: 60 QT: 372 QTc: 490 Interpretive Statements Ventricular-paced rhythm No further analysis attempted due to paced rhythm Electronically Signed On 04-17-2025 17:35:16 PDT by Tomi Moreno Please click the below link to view image of tracing.
--- NOTE | 2025-04-16 11:09 | DVH ---
CHEST RADIOGRAPH Indication: INFILTRATE Technique: XY CHEST TWO VIEWS ROUTINE COMPARISON: 04/16/2025 FINDINGS: Right IJ zulema catheter tip projects over the SVC. Left chest cardiac pacing device. The cardiac silhouette is enlarged. The lungs demonstrate bilateral patchy airspace opacities, simila r to previous examination. The pulmonary vasculature is prominent. Moderate right and small to modera te left pleural effusions, similar to prior. There is no pneumothorax. IMPRESSION: As above
[2025-04-16 13:29] LABS: Chloride 104 mmol/L (98-107); Potassium 4.5 mmol/L (3.5-5.1)
[2025-04-16 13:30] LABS: Anion Gap 11 (5-15); Calcium 8.5 mg/dL (8.7-10.4); Carbon Dioxide 19 mmol/L (20-31); Sodium 134 mmol/L (136-145)
[2025-04-16 13:35] LABS: BUN/Creatinine Ratio 18.0 (10.0-20.0)
[2025-04-16 13:36] LABS: Blood Urea Nitrogen 48 mg/dL (9-23); Glucose 70 mg/dL (74-106)
[2025-04-16] MEDS ORDERED: Glucerna 1.2 Cal 1Liter BOTTLE GT SCH (14:30)
[2025-04-16] MEDS: ACETYLCYSTEINE 20%(200MG/ML) SOL 4ML NEB SCH (14:33)
[2025-04-16] MEDS: LORazepam 2MG/ML-1ML VIAL IV PRN (17:59)
[2025-04-16] MEDS: HYDROmorphone HCL 2 MG/ML VL/or syr IV ONE (17:59)
--- NOTE | 2025-04-16 20:55 | DVHPNRES ---
Progress Note Date Seen: Apr 16, 2025 Resident Creating Document: JHZachJIZZY Feilz RESIDENT Medical Necessity Reason Pt with a Central, PICC or Fol: No Subjective Review of Systems Patient seen and examined at bedside. work of breathing has improved but patient is more weak urine output mildly improved but kidney function has worsened Objective vital signs Vital Sign Date Time Temp Pulse Resp B/P (MAP) Pulse Ox O2 Delivery O2 Flow Rate FiO2 04/16/25 20:07 104 11 74/43 04/16/25 18:52 95 04/16/25 18:42 Nasal Cannula 4.0 04/16/25 18:42 36 04/16/25 16:00 98.5 98.5 Total Intake and Output 04/15/25 04/15/25 04/16/25 15:00 23:00 07:00 Intake Total 147.5 ml 187.25 ml Output Total 150 ml 225 ml Balance -2.5 ml -37.75 ml medications Current Medications Medications Dose Ordered Sig/Meenu Route Start Time Stop Time Status Last Admin Dose Admin Ondansetron HCl 4 mg Q4HP PRN IV 04/06/25 23:00 04/07/25 06:15 4 MG Diagnostic Test (Pha) 1 strip ACHS 04/07/25 07:00 04/16/25 13:14 1 STRIP Insulin Human Regular ACHS SC 04/07/25 07:00 04/16/25 06:54 2 UNITS Dextrose 50 ml UD PRN IV 04/06/25 23:00 Gabapentin 300 mg DAILY PO 04/07/25 10:00 04/14/25 10:41 300 MG Tamsulosin HCl 0.4 mg QPM PO 04/09/25 18:00 UNV Doxycycline Hyclate 100 ml @ 50 mls/hr Q12H IV 04/12/25 12:15 04/16/25 13:14 50 MLS/HR Ipratropium [place] 0.5 mg Q4HR NEB 04/13/25 06:00 04/16/25 18:50 0.5 MG Levalbuterol HCl 0.625 mg Q4HR NEB 04/13/25 06:00 04/16/25 18:51 0.625 MG Guaifenesin/ Dextromethorphan 10 ml Q4HP PRN PO 04/13/25 13:45 Cefepime HCl 50 ml @ 12.5 mls/hr HS IV 04/13/25 22:00 04/15/25 22:42 12.5 MLS/HR Pantoprazole Sodium 40 mg BID IV 04/15/25 10:00 04/16/25 10:12 40 MG Bumetanide 12.5 mg/Miscellaneous 50 ml @ 2 mls/hr Q24H IV 04/15/25 12:45 04/15/25 17:01 2 MLS/HR Sodium Chloride 10 ml QSHIFT@10,22 IV 04/15/25 22:00 04/16/25 10:12 10 ML Hydromorphone HCl 0.25 mg Q4HPRN PRN IV 04/15/25 23:00 04/16/25 20:07 0.25 MG Acetaminophen 650 mg Q4HP PRN PO 04/16/25 08:45 Acetylcysteine 200 mg Q8HR NEB 04/16/25 14:00 04/16/25 14:33 200 MG Enteral Nutritional Formula 1,000 ml 40ML/HR GT 04/16/25 14:30 Lorazepam 2 mg Q1HP PRN IV 04/16/25 17:45 04/16/25 20:05 2 MG Hydromorphone HCl 2 mg Q1HP PRN IV 04/16/25 19:45 UNV Examination Gen - mild pallor, no icterus, no cyanosis, bilateral lower extremity 1+ edema . Skin - Patients skin is warm and dry. HEENT - normocephalic, atraumatic, moist mucous membranes. Neck - full ROM, no LAD, elevated JVP Pulmonary - B/L decreased breath sounds with diffuse coarse crackles cardiovascular - regular S1,S2 heard, peripheral pulses normal radial 2+, pedal 2+. capillary refill normal <3 secs. GI - soft, nontender abdomen Bowel sounds normoactive Neurological - Patient is A/O X 2 . Decreased strength in the bilateral upper extremities, no facial droop laboratory and microbiology Laboratory Tests 04/16/25 13:05 04/16/25 03:35 Test 04/16/25 13:05 Range/Units Serum Glucose 70 L 74-106 mg/dL Microbiology Date/Time Source Procedure Growth Status 04/13/25 09:15 Pleural Fluid Gram Stain - Final Resulted 04/13/25 09:15 Pleural Fluid Aerobic Culture - Preliminary Resulted 04/10/25 10:05 Blood Blood Culture - Final NO GROWTH AFTER 5 DAYS OF INCUBATION. 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) Ischemic cardiomyopathy H/o recent Afib with cardioversion S/p Port-a cath with intermittant ionotropic drip - inital chest x-ray shows bilateral congestion with a right pleural effusion - status post right thoracentesis with drainage of 600ml fluid - repeat chest x-ray today showed worsening congestion - on Bumex drip - strict input and output Possible pneumonia likely due to Gram +/- bacteria Bilateral pulmonary edema likely due to CHF exacerbation Right pleural effusion status post thoracentesis - IV cefepime and doxycycline - duo nebs q.4 hours - Bumex drip CHRISTOPHER on CKD likely due to VMN hypervolemic hyponatremia, resolving - fluid overload, diuresis - function and electrolytes - keep potassium above 4 and magnesium 2 - nephrology consulted Severe Normocytic, normochromic Anemia s/p PRBC infusion H/o multiple recent blood transfusions FOBT negative one unit of PRBCs given IV iron given Superficial vein thrombosis warm compression, no anticoagulant since the patient is high risk for bleeding History of BPH Complicated UTI Continue Flomax Type 2 diabetes mellitus Sliding scale insulin A1c 6.6 on 03/10/2025 DVT prophylaxis: Holding off Lovenox as the patient is at high risk of bleeding GI prophylaxis: Protonix Left upper arm PICC line placed on 04/15/2025 Goals of care discussed with the patient's son Thierno for over 27 mins. Code status: comfort measures only Plan discussed with Dr Barcenas Plan discussed with: Patient, Son My Orders My Orders Orders - IZZY PEPE RESIDENT Procedure Category Date Status Time Acetaminophen Tablet PHA 04/16/25 In Process (Tylenol Tablet) 08:45 Stool Occult Blood LAB 04/16/25 Logged 08:30 Acetylcysteine PHA 04/16/25 In Process Inhalation 20% 14:00 *[facility] CONS 04/16/25 Transmitted -[place] 12:52 Place Ng ORDERS 04/16/25 Transmitted 14:29 Nutritional PHA 04/16/25 In Process Supplements (Glucerna 14:30 Dietary Evaluation Review Recommendations by RD: Protein Supplementation Comments: 1) Initiate Glucerna tid 2) Initiate vitamin C @ 500 mg bid for 7-10 days 3) Follow-up with cardiology, pulmonology, and nephrology 4) Continue to monitor I&O, labs, and skin integrity Expected Outcomes/Goals: 1) appetite and labs to improve 2) wound to improve 3) f/u in 3-5 days CC Plasma Assessment Blood Product Administration S: [id number] Date of Service: Apr 16, 2025 Billing Provider: SMILEY BARCENAS MD Common Visit Codes: [id number] INP/OBS CARE(HIGH) IZZY PEPE RESIDENT Apr 16, 2025 20:55 SMILEY BARCENAS MD Apr 17, 2025 22:55
[2025-04-16] MEDS: HYDROmorphone HCL 2 MG/ML VL/or syr IV PRN (23:42)
[2025-04-17] VITALS (13 sets, daily range): BP systolic 56–74; BP diastolic 11–36; PULSE 59–107; RESP 7–14; TEMP 97.9; O2SAT 88–94
--- NOTE | 2025-04-17 06:28 | DVH ---
CHEST RADIOGRAPH Indication: SOB Technique: Single frontal view of the chest was obtained COMPARISON: XY CHEST TWO VIEWS ROUTINE on DOS: 04/16/25, XY CHEST XRAY 1 VIEW on DOS: 04/16/25, XY CH EST XRAY 1 VIEW on DOS: 04/15/25, XY CHEST PORTABLE on DOS: 04/15/25, XY CHEST PORTABLE on DOS: 04/13 FINDINGS: Lines and Tubes: Right mediPort and peripherally inserted central catheter unchanged. Lungs: Stable appearing bilateral pulmonary airspace disease, [id number], with consolida tive features within the right mid lung and bilateral pleural effusions. No pneumothorax. Cardiomediastinal contours: Cardiomegaly. Bones: Unremarkable IMPRESSION: 1. Stable appearing bilateral pulmonary airspace disease, [id number], with consolidative features within the right mid lung and bilateral pleural effusions. 2. Cardiomegaly. 3. Lines and tubes unchanged.
--- NOTE | 2025-04-17 10:39 | DVHPN2 ---
Progress Note - Dictate Date Seen: Apr 17, 2025 Medical Necessity Reason Pt with a Central, PICC or Fol: No Subjective Disorder discussed with patient's nurse. Noted plans for full DNR, comfort measures. I will not perform a consultation due to this status. Please contact me directly with any questions or concerns. vital signs Vital Sign Date Time Temp Pulse Resp B/P (MAP) Pulse Ox O2 Delivery O2 Flow Rate FiO2 04/17/25 10:32 63 13 62/32 04/17/25 06:00 94 04/17/25 04:00 97.9 97.9 04/16/25 20:00 Nasal Cannula* 5 40 Total Intake and Output 04/16/25 04/16/25 04/17/25 15:00 23:00 07:00 Intake Total 116 ml 4 ml Output Total 300 ml 15 ml Balance 116 ml -296 ml -15 ml medications Current Medications Medications Dose Ordered Sig/Meenu Route Start Time Stop Time Status Last Admin Dose Admin Ondansetron HCl 4 mg Q4HP PRN IV 04/06/25 23:00 04/07/25 06:15 4 MG Tamsulosin HCl 0.4 mg QPM PO 04/09/25 18:00 UNV Sodium Chloride 10 ml QSHIFT@10,22 IV 04/15/25 22:00 04/17/25 10:32 10 ML Hydromorphone HCl 0.25 mg Q4HPRN PRN IV 04/15/25 23:00 04/16/25 22:32 0.25 MG Acetaminophen 650 mg Q4HP PRN PO 04/16/25 08:45 Lorazepam 2 mg Q1HP PRN IV 04/16/25 17:45 04/17/25 04:03 2 MG Hydromorphone HCl 2 mg Q1HP PRN IV 04/16/25 19:45 04/17/25 10:32 2 MG laboratory and microbiology Laboratory Tests 04/16/25 13:05 04/16/25 03:35 Test 04/16/25 13:05 Range/Units Serum Glucose 70 L 74-106 mg/dL Dietary Evaluation Review Recommendations by RD: Protein Supplementation Comments: 1) Initiate Glucerna tid 2) Initiate vitamin C @ 500 mg bid for 7-10 days 3) Follow-up with cardiology, pulmonology, and nephrology 4) Continue to monitor I&O, labs, and skin integrity Expected Outcomes/Goals: 1) appetite and labs to improve 2) wound to improve 3) f/u in 3-5 days Plan discussed with: Other CC Plasma Assessment Blood Product Administration S: [id number] ELIZABETH HERNANDEZ MD Apr 17, 2025 10:39
--- NOTE | 2025-04-17 14:46 | DVHPNRES ---
Progress Note Date Seen: Apr 17, 2025 Resident Creating Document: LIZBETH KEY RESIDENT Medical Necessity Reason Pt with a Central, PICC or Fol: No Subjective Review of Systems Patient was seen and examined at bedside. Family members were present. Patient remains on supplemental oxygen cannula. He is nonresponsive, audible rhonchi heard. Patient has been placed on comfort measures only. Objective vital signs Vital Sign Date Time Temp Pulse Resp B/P (MAP) Pulse Ox O2 Delivery O2 Flow Rate FiO2 04/17/25 13:25 65 10 64/24 04/17/25 12:00 88 04/17/25 08:30 Nasal Cannula* 5 40 04/17/25 04:00 97.9 97.9 Total Intake and Output 04/16/25 04/16/25 04/17/25 15:00 23:00 07:00 Intake Total 116 ml 4 ml Output Total 300 ml 15 ml Balance 116 ml -296 ml -15 ml medications Current Medications Medications Dose Ordered Sig/Meenu Route Start Time Stop Time Status Last Admin Dose Admin Ondansetron HCl 4 mg Q4HP PRN IV 04/06/25 23:00 04/07/25 06:15 4 MG Tamsulosin HCl 0.4 mg QPM PO 04/09/25 18:00 UNV Sodium Chloride 10 ml QSHIFT@10,22 IV 04/15/25 22:00 04/17/25 10:32 10 ML Hydromorphone HCl 0.25 mg Q4HPRN PRN IV 04/15/25 23:00 04/16/25 22:32 0.25 MG Acetaminophen 650 mg Q4HP PRN PO 04/16/25 08:45 Lorazepam 2 mg Q1HP PRN IV 04/16/25 17:45 04/17/25 04:03 2 MG Hydromorphone HCl 2 mg Q1HP PRN IV 04/16/25 19:45 04/17/25 12:55 2 MG Examination Gen - mild pallor, no icterus, no cyanosis, bilateral lower extremity 1+ edema . Skin - Patients skin is warm and dry. HEENT - normocephalic, atraumatic, moist mucous membranes. Neck - full ROM, no LAD, elevated JVP Pulmonary - B/L decreased breath sounds with diffuse coarse crackles cardiovascular - regular S1,S2 heard, peripheral pulses normal radial 2+, pedal 2+. capillary refill normal <3 secs. GI - soft, nontender abdomen Bowel sounds normoactive Neurological - Patient is A/O X 0 laboratory and microbiology Laboratory Tests 04/16/25 13:05 04/16/25 03:35 Test 04/16/25 13:05 Range/Units Serum Glucose 70 L 74-106 mg/dL Microbiology Date/Time Source Procedure Growth Status 04/13/25 09:15 Pleural Fluid Gram Stain - Final Resulted 04/13/25 09:15 Pleural Fluid Aerobic Culture - Preliminary Resulted 04/10/25 10:05 Blood Blood Culture - Final NO GROWTH AFTER 5 DAYS OF INCUBATION. 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) Ischemic cardiomyopathy H/o recent Afib with cardioversion S/p Port-a cath with intermittant ionotropic drip - inital chest x-ray shows bilateral congestion with a right pleural effusion - status post right thoracentesis with drainage of 600ml fluid - repeat chest x-ray today showed worsening congestion - stop Bumex drip Possible pneumonia likely due to Gram +/- bacteria Bilateral pulmonary edema likely due to CHF exacerbation Right pleural effusion status post thoracentesis - stop IV cefepime and doxycycline - stop duo nebs q.4 hours - stop Bumex drip CHRISTOPHER on CKD likely due to VMN hypervolemic hyponatremia, resolving - fluid overload, diuresis - function and electrolytes Severe Normocytic, normochromic Anemia s/p PRBC infusion H/o multiple recent blood transfusions FOBT negative one unit of PRBCs given IV iron given Superficial vein thrombosis warm compression, no anticoagulant since the patient is high risk for bleeding History of BPH Complicated UTI Continue Flomax Type 2 diabetes mellitus stop Sliding scale insulin A1c 6.6 on 03/10/2025 DVT prophylaxis: Holding off Lovenox as the patient is at high risk of bleeding GI prophylaxis: stop Protonix Left upper arm PICC line placed on 04/15/2025 Goals of care discussed with the patient's son Thierno for over 30 mins. Code status: Comfort measures only, avoid any more procedures and blood draws Plan discussed with Dr. Varghese Plan discussed with: Son, Other (RN) My Orders My Orders Orders - LIZBETH KEY Procedure Category Date Status Time Transfer Orders XFER 04/17/25 Transmitted 11:13 Dietary Evaluation Review Recommendations by RD: Protein Supplementation Comments: 1) Initiate Glucerna tid 2) Initiate vitamin C @ 500 mg bid for 7-10 days 3) Follow-up with cardiology, pulmonology, and nephrology 4) Continue to monitor I&O, labs, and skin integrity Expected Outcomes/Goals: 1) appetite and labs to improve 2) wound to improve 3) f/u in 3-5 days CC Plasma Assessment Blood Product Administration S: 0530 Date of Service: Apr 17, 2025 Billing Provider: SMILEY VARGHESE MD Common Visit Codes: [id number] INP/OBS CARE(HIGH) Secondary Visit Codes: [id number] CARE PLAN 30 MINUTES LIZBETH KEY Apr 17, 2025 14:46 SMILEY VARGHESE MD Apr 17, 2025 22:57
--- NOTE | 2025-04-17 19:05 | PRN ---
Misceleneous Note Note Note Date of : February 15, 2025 Time of : 17:59 hours (5:59 PM) Physician: MD Ly Resident Circumstances The patient was found unresponsive and apneic at bedside. No spontaneous respirations were observed. The monitor displayed asystole. Upon arrival, the following physical findings were noted: Physical Examination * Level of consciousness: Unresponsive to verbal or painful stimuli * Pupils: Fixed and dilated bilaterally * Corneal reflex: Absent * Respiratory effort: None observed; absent chest rise * Heart sounds: Absent after 1 full minute of auscultation * Carotid and peripheral pulses: Absent bilaterally * Breath sounds: Absent on auscultation of all lung [place] * Apical pulse: Absent after 1 full minute [place] pressure noted on noninvasive pressure cuff. Pronouncement Based on the above findings, the patient was pronounced at 17:59 hours on February 15, 2025. RN at bedside. Date of Service: Apr 17, 2025 Billing Provider: BASILIA DEAN MD, RAGHAVA RAO RESIDENT Apr 17, 2025 19:05
--- NOTE | 2025-04-18 12:41 | DVHDS2 ---
Summary Date of Admission Apr 06, 2025 at 22:56 Date and Time of Expiration: Apr 17, 2025 05:59 Reason for Admission: Acute hypoxic respiratory failure Labs/Diagnostic Data: Laboratory Results Test 04/16/25 13:05 04/16/25 12:57 04/16/25 03:35 04/15/25 05:33 Sodium Level 134 mmol/L (136-145) Potassium Level 4.5 mmol/L (3.5-5.1) Chloride Level 104 mmol/L (98-107) Carbon Dioxide Level 19 mmol/L (20-31) Anion Gap 11 (5-15) Blood Urea Nitrogen 48 mg/dL (9-23) Creatinine 2.66 mg/dL (0.700-1.30) Glomerular Filtration Rate Calc 22 mL/min (>90) BUN/Creatinine Ratio 18.0 (10.0-20.0) Serum Glucose 70 mg/dL (74-106) Calcium Level 8.5 mg/dL (8.7-10.4) POC Glucose 74 mg/dl (70-106) White Blood Count 6.7 10^3/uL (4.4-10.8) Red Blood Count 3.03 10^6/uL (4.5-5.90) Hemoglobin 8.9 g/dL (13.5-17.5) Hematocrit 26.9 % (41.0-53.0) Mean Corpuscular Volume 88.8 fL (80.0-100.0) Mean Corpuscular Hemoglobin 29.5 pg (28.0-32.0) Mean Corpuscular Hemoglobin Concent 33.2 g/dL (32.0-36.0) Red Cell Distribution Width 22.2 % (11.8-14.3) Platelet Count 75 10^3/uL (140-450) Mean Platelet Volume 7.5 fL (6.9-10.8) Neutrophils (%) (Auto) 85.9 % (37.0-80.0) Lymphocytes (%) (Auto) 8.4 % (10.0-50.0) Monocytes (%) (Auto) 5.3 % (0.0-12.0) Eosinophils (%) (Auto) 0.2 % (0.0-7.0) Basophils (%) (Auto) 0.2 % (0.0-2.0) Neutrophils # (Auto) 5.7 10 ^3/uL (1.6-8.6) Lymphocytes # (Auto) 0.6 10 ^3/uL (0.4-5.4) Monocytes # (Auto) 0.4 10 ^3/uL (0-1.3) Eosinophils # (Auto) 0 10 ^3/uL (0-0.8) Basophils # (Auto) 0 10 ^3/uL (0-0.2) Nucleated Red Blood Cells 0.2 % Magnesium Level 2.1 mg/dL (1.6-2.6) B-Type Natriuretic Peptide 4080.97 pg/mL (0-100) Troponin I High Sensitivity 67 ng/L (</=54) Test 04/13/25 09:15 04/13/25 05:16 04/12/25 06:00 04/11/25 15:34 Body Fluid Source Pleural Body Fluid pH 8.0 Body Fluid WBC (Manual) 161 CUMM (0-200) Body Fluid RBC (Manual) 965 CUMM (0-2000) Body Fluid Mononuclear Cells 96 % Body Fluid Polymorphonuclear Cells 4 % (0-25) Body Fluid Glucose 96 mg/dL (.) Body Fluid Total Protein 2.0 g/dL (.) Body Fluid Lactate Dehydrogenase 138 IU/L (.) Total Bilirubin 0.3 mg/dL (0.2-1.0) Direct Bilirubin 0.2 mg/dL (<0.3) Aspartate Amino Transferase (AST) 41 U/L (13-40) Alanine Aminotransferase (ALT) 13 U/L (7-40) Alkaline Phosphatase 40 U/L (46-116) Lactate Dehydrogenase 275 U/L (120-246) Total Protein 6.7 g/dL (5.7-8.2) Albumin 3.2 g/dL (3.2-4.8) Prothrombin Time 14.2 sec (9.3-11.8) Prothrombin Time INR 1.38 (0.9-1.15) Activated Partial Thromboplast Time 39.3 SEC (24.5-34.5) Random Vancomycin Level 9.4 ug/mL (5-10) Lactic Acid Level 2.4 mmol/L (0.4-2.0) Test 04/11/25 06:32 04/08/25 11:07 04/08/25 00:23 04/07/25 07:11 Urine Color Yellow (Yellow) Urine Clarity Turbid (Clear) Urine pH 5.5 (5.0-9.0) Urine Specific Mcdowell 1.019 (1.001-1.035) Urine Protein 1+ (Negative) Urine Ketones Trace (Negative) Urine Blood Trace /uL (Negative) Urine Nitrite Negative (Negative) Urine Bilirubin Negative (Negative) Urine Urobilinogen Normal mg/dL (Negative) Urine Leukocyte Esterase Trace /uL (Negative) Urine RBC 3 /hpf (0 - 3) Urine Microscopic WBC 10 /HPF (0-3) Urine Squamous Epithelial Cells Few /hpf (<5) Urine Bacteria Few /hpf (None Seen) Urine Yeast (Budding) Few /hpf (None Seen) Urine Glucose Normal mg/dL (Normal) Stool Occult Blood Negative (Negative) Stool Occult Blood Sample #3 (Negative) Stool for White Cells Many Influenza Type A Antigen Negative (Negative) Influenza Type B Antigen Negative (Negative) SARS-CoV-2 Antigen (Rapid) Negative (NEGATIVE) Blood Gas Specimen Type Arterial Blood Gas Sample Site Right radial Blood Gas Patient Temperature 37.0 Arterial Blood Date Drawn [id number] Arterial Blood pH 7.455 (7.350-7.450) Arterial Blood Partial Pressure CO2 26.8 mmHg (35.0-48.0) Arterial Blood Partial Pressure O2 87.2 mmHg (83.0-108.0) Arterial Blood HCO3 18.4 mmol/L (21.0-28.0) Arterial Blood Oxygen Saturation 96.2 % (94.0-98.0) Arterial Blood Base Excess -4.4 mmol/L (-2.0-3.0) Arterial Blood Oxyhemoglobin 95.0 % (94.0-98.0) Arterial Blood Carboxyhemoglobin 0.7 % (0.5-1.5) Arterial Blood Methemoglobin 0.5 % (0.0-1.5) Roderick Test Yes Blood Gas Total Hemoglobin 10.00 g/dL (13.5-17.5) Blood Gas Liter Flow 1.00 Blood Gas Modality Nasal cannula FiO2 % 24.0 Test 04/06/25 21:45 04/06/25 19:28 04/06/25 18:41 04/06/25 12:50 Haptoglobin 222 mg/dL (38-329) Iron Level 28 ug/dL (65-175) Total Iron Binding Capacity 177 ug/dL (250-425) Percent Iron Saturation 15.8 % (20-55) Ferritin 2287.6 ng/mL (22-322) Vitamin B12 Level 1122 pg/mL (211-911) Vitamin D 25-Hydroxy 63.1 ng/mL (30.0-100) Folic Acid 3.77 ng/mL (>5.38) Thyroid Stimulating Hormone (TSH) 2.76 uIU/mL (0.55-4.78) Reticulocyte Count (auto) 3.45 % (0.5-1.5) Phosphorus Level 2.8 mg/dL (2.4-5.1) Ammonia < 10 umol/L (11-32) C-Reactive Protein High Sensitivity 2.14 mg/dL (<1.0) Triglycerides Level 77 mg/dL (< 150) Cholesterol Level 81 mg/dL (< 200) LDL Cholesterol 33 mg/dL (< 100) HDL Cholesterol 32 mg/dL (40-59) Lipase 26 U/L (12-53) Urine WBC Clumps Present /hpf (None Seen) Urine Opiates Screen Neg (NEGATIVE) Urine Fentanyl Screen Neg (NEGATIVE) Urine Barbiturates Screen Neg (NEGATIVE) Urine Phencyclidine Screen Neg (NEGATIVE) Urine Amphetamines Screen Neg (NEGATIVE) Urine Benzodiazepines Screen Neg (NEGATIVE) Urine Cocaine Screen Neg (NEGATIVE) Urine Cannabinoids Screen Neg (NEGATIVE) Other Laboratory Tests 04/16/25 13:05 04/16/25 03:35 Brief Hx & Hospital Course: Mr. Tank Amador is an 89-year-old male with past medical history of HFrEF with EF 25-35% prosthetic aortic valve, CAD with CABG, status post CRTD, severe anemia, type 2 diabetes mellitus, hyperlipidemia, presented to the ER with chief complain of generalized weakness. Patient also complained of shortness of breaths, fever since last few days, unable to elaborate further. He also complained of diarrhea since last 2 days with 3 episodes daily, described as running brown stools, no blood seen. Uses home oxygen, unsure of oxygen required at home. On further evaluation clinically, with imaging and labs the patient was found to have acute hypoxic respiratory failure due to acute on chronic systolic heart failure with LV ejection fraction less than 20%, NSTEMI was likely due to demand ischemia. The patient initially was treated with digoxin via Port-A-Cath, however all his GDMT was on hold due to low blood pressures. The patient had episodes of tachycardia, due to which digoxin was discontinued. Patient remained congested and was experiencing progressive shortness of breaths, multiple doses of IV Lasix was given, it was switched to IV bumetanide drip. Stage I sacral ulcer was managed appropriately by consulting Wound Care. Patient was treated with IV cefepime and doxycycline for pneumonia. Patient's kidney function worsened likely due to worsening cardiac function. However, despite the measures patient's status continues to deteriorate, patient was transferred to ICU due to acute hypoxic respiratory failure and hemodynamic instability. The patient's code status was initially full code, however talking to the patient and son, the status was changed to DNR with comfort measures. In the ICU patient was given supportive treatment including comfort measures. E ventually, the patient on 04/17/2025 at 5:59 p.m. Family was provided support at the bedside. Case discussed with Dr. Barcenas. Consults/Reason for consult Dr. [facility]: HFrEF Final Diagnosis/Problems List Acute hypoxic respiratory failure Acute on chronic systolic heart failure with LVEF< 20% NSTEMI likely type 2 from demand ischemia Bilateral pulmonary edema likely due to CHF exacerbation Right pleural effusion status post thoracentesis CHRISTOPHER on CKD likely due to VMN Discharge Disposition: at Hospital Date of Service: Apr 17, 2025 Billing Provider: SMILEY BARCENAS MD Common Visit Codes: 99690-GGS/OBS DISCH DAY >30min JOAQUIN RICE Apr 18, 2025 12:41 SMILEY BARCENAS MD Apr 19, 2025 02:34
== END 2025-04-17 22:35 ==
LOC: EDBD 17:29 → ER 17:31 → OVERFLOW 22:56 → TELE-CENTR 04-07 14:40 → ICU CENTRL 04-15 15:03 → TELE-CENTR 04-17 14:28
PROVIDERS: ADMIT Internal Medicine; ATTEND Internal Medicine
PROC: 30233N1 Transfusion of Nonautologous Red Blood Cells into Peripheral Vein, Percutaneous Approach (ICD-10-PCS; principal; 2025-04-07)
PROC: 0W9930Z Drainage of Right Pleural Cavity with Drainage Device, Percutaneous Approach (ICD-10-PCS; 2025-04-13)
PROC: 02HV33Z Insertion of Infusion Device into Superior Vena Cava, Percutaneous Approach (ICD-10-PCS; 2025-04-15)
PROC: B548ZZA Ultrasonography of Superior Vena Cava, Guidance (ICD-10-PCS; 2025-04-15)
DX: I13.0 Hypertensive heart and chronic kidney disease with heart failure and stage 1 through stage 4 chronic kidney disease, or unspecified chronic kidney disease (principal); I50.23 Acute on chronic systolic (congestive) heart failure; I21.A1 Myocardial infarction type 2; J96.21 Acute and chronic respiratory failure with hypoxia; N17.0 Acute kidney failure with tubular necrosis; J18.9 Pneumonia, unspecified organism; J96.01 Acute respiratory failure with hypoxia; E87.1 Hypo-osmolality and hyponatremia; J91.8 Pleural effusion in other conditions classified elsewhere; A09 Infectious gastroenteritis and colitis, unspecified; N39.0 Urinary tract infection, site not specified; I82.812 Embolism and thrombosis of superficial veins of left lower extremity; E11.42 Type 2 diabetes mellitus with diabetic polyneuropathy; E78.5 Hyperlipidemia, unspecified; I25.5 Ischemic cardiomyopathy; Z20.822 Contact with and (suspected) exposure to COVID-19; I25.10 Atherosclerotic heart disease of native coronary artery without angina pectoris; D46.9 Myelodysplastic syndrome, unspecified; E11.22 Type 2 diabetes mellitus with diabetic chronic kidney disease; L89.151 Pressure ulcer of sacral region, stage 1; N18.32 Chronic kidney disease, stage 3b; Z66 Do not resuscitate; N40.1 Benign prostatic hyperplasia with lower urinary tract symptoms; I48.91 Unspecified atrial fibrillation; Z95.2 Presence of prosthetic heart valve; Z95.1 Presence of aortocoronary bypass graft; Z95.810 Presence of automatic (implantable) cardiac defibrillator; Z79.4 Long term (current) use of insulin
CPT/HCPCS: 32555; 36415; 36569; 36600; 71045; 71046; 76604; 76705; 76942; 80048; 80053; 80061; 80076; 80202; 80307; 81001; 82140; 82270; 82306; 82607; 82728; 82746; 82805; 82962; 83010; 83540; 83550; 83605; 83615; 83690; 83735; 83880; 83986; 84100; 84443; 84484; 85014; 85018; 85025; 85045; 85048; 85610; 85730; 86141; 86850; 86900; 86901; 86920; 87040; 87045; 87070; 87081; 87086; 87088; 87177; 87205; 87426; 87427; 87493; 87804; 89051; 92610; 93005; 93925; 93971; 94640; 96372; 97110; 97163; G0378; J1071; J1756; J1815; J2470; J2543; J3490

== ENCOUNTER → 2025-04-06 | Outpatient (CLI) | payer MEDICARE ==
[2025-04-06] VITALS (9 sets, daily range): BP systolic 85–118; BP diastolic 44–59; PULSE 75–91; RESP 16; O2SAT 96–98
[2025-04-06] MEDS: DOBUTamine 1000MCG/ML 250 ML IV ONE ×2 (08:52→09:21)
[2025-04-06] MEDS: MAGNESIUM SULFATE 1GM/100ML 200 ML IV ONE (09:21)
[2025-04-06] MEDS: MAGNESIUM SULFATE 1GM/100ML 100 ML IV SCH (10:01)
[2025-04-06] MEDS: BACITRACIN TOP OINT 1 UD PKG TOP ONE ×2 (12:00)
== END | disposition home or self-care (01) ==
LOC: CHF HDHVI 08:43
PROVIDERS: ATTEND Internal Medicine Cardiovascular Disease
DX: I13.0 Hypertensive heart and chronic kidney disease with heart failure and stage 1 through stage 4 chronic kidney disease, or unspecified chronic kidney disease (principal); E11.22 Type 2 diabetes mellitus with diabetic chronic kidney disease; I50.43 Acute on chronic combined systolic (congestive) and diastolic (congestive) heart failure; N18.4 Chronic kidney disease, stage 4 (severe); E83.42 Hypomagnesemia; I25.5 Ischemic cardiomyopathy; I25.10 Atherosclerotic heart disease of native coronary artery without angina pectoris; I25.2 Old myocardial infarction; I48.0 Paroxysmal atrial fibrillation; D50.0 Iron deficiency anemia secondary to blood loss (chronic); K92.2 Gastrointestinal hemorrhage, unspecified; E11.42 Type 2 diabetes mellitus with diabetic polyneuropathy; E11.51 Type 2 diabetes mellitus with diabetic peripheral angiopathy without gangrene; E78.00 Pure hypercholesterolemia, unspecified; E03.9 Hypothyroidism, unspecified; M19.90 Unspecified osteoarthritis, unspecified site; Z79.01 Long term (current) use of anticoagulants; Z79.899 Other long term (current) drug therapy; Z87.891 Personal history of nicotine dependence; Z95.810 Presence of automatic (implantable) cardiac defibrillator; Z86.73 Personal history of transient ischemic attack (TIA), and cerebral infarction without residual deficits
CPT/HCPCS: 96365; 96366; 96368; G0463; J1250; J1642; J3475; 96367